=== PATIENT | female | born 1980 | race Two or more races ===

== ENCOUNTER 2020-01-03 18:05 | Emergency (ER) | payer MEDICAID, SELFPAY ==
[2020-01-03 18:16] VITALS: BP 204/116; PULSE 84; PULSE 88; RESP 15; TEMP 36.8; O2SAT 98; O2SAT 99; BMI 31.1
--- NOTE | 2020-01-03 19:02 | ED_ITS ---
HPI - Overdose General Chief Complaint: Overdose Stated Complaint: ?overdose/etoh Time Seen by Provider: 01/03/20 19:02 Source: family and EMS Mode of arrival: EMS Limitations: altered mental status History of Present Illness HPI Narrative: 39-year-old female presents via EMS for overdose. It is unknown which medications that she took, she states that she took handfuls of old medications which include muscle relaxers, medications to control blood sugar, allergy medications and medications for depression. She is a poor historian, history is limited at this time. MD complaint: intentional overdose Onset (ago): unknown Timing confirmed by: family member Intent: suicide attempt How Overdose Was Discovered: family/friend present at time Associated symptoms: depression Treatments Prior to Arrival: none Related Data Allergies Allergy/AdvReac Type Severity Reaction Status Date / Time latex [Latex] Allergy Unknown RASH Verified 01/03/20 18:21 Review of Systems Review of Systems: ROS unable to be obtained due to altered mental status PMFSH Past Medical History Attestation statement: The following information was validated with the patient. Source: unable to obtain Medical History HTN (hypertension) Social History Social History Advance Directives: No Advance Directives Information Provided: Yes Physical Exam Vital Signs and I&O and Narrative: Vital Signs and I&O: Vital Signs Temp 98.2 F 01/03/20 22:00 Pulse 85 01/04/20 03:40 Resp 18 01/04/20 03:40 BP 143/70 H 01/04/20 03:40 Pulse Ox 97 01/04/20 03:40 Intake & Output 01/03/20 01/03/20 01/04/20 06:59 18:59 06:59 Weight 84.822 kg Body Mass Index 31.1 Appearance: Alert. Oriented person and situation. Moderate distress. Eyes: Pupils equal, round and reactive to light. Swelling to the eyelids consistent with crying, no indication of periorbital edema ENT: Pharynx normal. uvula midline, no difficulty managing secretions, speaking in clear sentences. Neck: Normal inspection. Neck supple. No tracheal stridor noted CVS: Normal heart rate and rhythm. Pulses normal. Brisk capillary refill to all extremities Respiratory: No respiratory distress. Breath sounds normal. Abdomen: Soft and nontender. Skin: Skin warm and dry. Normal skin color. Normal skin turgor. Extremities: No lower extremity edema. Neuro: Oriented X 3. No motor deficit. No sensory deficit. Course Course Course Narrative: 39-year-old female presents with intentional overdose on unknown medications and quantity. States to be very depressed, and will not disclose further information. Needing multiple verbal redirection by this DEVOPS ENGINEER and staff technologist to stay in her bed. Patient has one-to-one, and is in direct visual site of this DEVOPS ENGINEER. We'll order Q 15 minutes blood sugars, continuous pulse ox and cardiac monitoring, full lab panel, EKG and troponins. At 8:48 p.m. troponin noted to be elevated, lactic acid 2.1, fluid resuscitation continues with 2 L of normal saline infusing. Blood sugars remain stable. Several hours of closely monitoring blood sugars, all remain above 100, EKGs are normal sinus rhythm, with LVH and repolarization abnormality. EKG at 7:59 p.m. and 11:41 p.m. are similar in comparison. RN had discussion with poison Control, as patient has been monitored for several hours patient can be medically cleared. N consult is pending. Sign out to Dr. Ahumada at 2:00 a.m.. MDM - Overdose Differential Diagnosis Differential diagnosis: Likely suicide attempt by multiple drug overdose and drug overdose Medical Records Attestation: I reviewed the patient's medical records. Lab Data Attestation: I reviewed the patient's lab results. Result diagrams: 01/03/20 19:45 01/03/20 19:45 Labs: Lab Results 01/03/20 01/03/20 01/03/20 Range/Units 19:28 19:45 19:45 WBC 14.2 H (4.8-10.8) X10*3/uL RBC 5.64 H (4.20-5.50) X10*6/uL Hgb 12.7 (12.0-16.0) g/dl Hct 40.2 (37-47) % MCV 71.3 L (80-98) fL MCH 22.5 L (27.0-33.0) pg MCHC 31.6 (31.0-35.0) g/dl RDW 17.9 H (11.0-16.0) % Plt Count 350 (160-400) X10*3/uL MPV 10.7 (9.4-12.3) fL Immature Gran % (Auto) 0.4 (0.0-0.4) % Neut % (Auto) 64.8 (45-73) % Lymph % (Auto) 27.8 (20-40) % [place] % (Auto) 4.3 (2-11) % Eos % (Auto) 2.3 (0-4) % Baso % (Auto) 0.4 (0-2) % Lymph # (Auto) 3.9 (1.2-4.9) X10*3/uL [place] # (Auto) 0.6 (0.1-1.2) X10*3/uL Eos # (Auto) 0.3 (0.0-0.4) X10*3/uL Baso # (Auto) 0.1 (0.0-0.2) X10*3/uL Abs Immat Gran (auto) 0.06 H (0.00-0.03) X10*3/uL Absolute Neuts (auto) 9.2 H (2.0-8.3) X10*3/uL Absolute Nucleated RBC 0.000 (0.0-0.012) X10*3/uL Nucleated RBC % (auto) 0.0 (0.0-0.2) /100WBC PT Cancelled INR Cancelled Sodium (135-145) mmol/L Potassium (3.3-5.1) mmol/l Chloride (96-108) mmol/L Carbon Dioxide (22-29) mmol/L Anion Gap (12-20) BUN (9-16) mg/dL Creatinine (0.5-1.4) mg/dL Estim Creat Clear Calc Estimated GFR POC Glucose 115 (60-115) mg/dL Random Glucose (60-115) mg/dL Lactic Acid (0.5-2.0) mmol/L Calcium (8.4-10.2) mg/dL Magnesium (1.6-2.6) mg/dL Total Bilirubin (0.0-1.0) mg/dL Direct Bilirubin (0.0-0.5) mg/dL AST (5-31) U/L ALT (0-31) U/L Alkaline Phosphatase (39-117) U/L Troponin I High Sens (<3.5-17.0) ng/L Total Protein (6.5-8.0) g/dL Albumin (3.5-5.0) g/dL Lipase (8-78) U/L Urine Color Urine Appearance Urine pH (5.0-8.0) Ur Specific [place] (1.005-1.025) Urine Protein (NEG-TRACE) MG/DL Urine Glucose (UA) (NEG) MG/DL Urine Ketones (NEG) MG/DL Urine Blood (NEG) Urine Nitrite (NEG) Ur Leukocyte Esterase (NEG) Salicylates (15-30) mg/dL Urine Opiates Screen (Not Detect) Acetaminophen (<30) mcg/mL Ur Barbiturates Screen (Not Detect) Ur Phencyclidine Scrn (Not Detect) Ur Amphetamines Screen (Not Detect) U Benzodiazepines Scrn (Not Detect) Urine Cocaine Screen (Not Detect) U Marijuana (THC) Screen (Not Detect) 01/03/20 01/03/20 01/03/20 Range/Units 19:45 19:45 19:45 WBC (4.8-10.8) X10*3/uL RBC (4.20-5.50) X10*6/uL Hgb (12.0-16.0) g/dl Hct (37-47) % MCV (80-98) fL MCH (27.0-33.0) pg MCHC (31.0-35.0) g/dl RDW (11.0-16.0) % Plt Count (160-400) X10*3/uL MPV (9.4-12.3) fL Immature Gran % (Auto) (0.0-0.4) % Neut % (Auto) (45-73) % Lymph % (Auto) (20-40) % [place] % (Auto) (2-11) % Eos % (Auto) (0-4) % Baso % (Auto) (0-2) % Lymph # (Auto) (1.2-4.9) X10*3/uL [place] # (Auto) (0.1-1.2) X10*3/uL Eos # (Auto) (0.0-0.4) X10*3/uL Baso # (Auto) (0.0-0.2) X10*3/uL Abs Immat Gran (auto) (0.00-0.03) X10*3/uL Absolute Neuts (auto) (2.0-8.3) X10*3/uL Absolute Nucleated RBC (0.0-0.012) X10*3/uL Nucleated RBC % (auto) (0.0-0.2) /100WBC PT INR Sodium 139 (135-145) mmol/L Potassium 3.4 (3.3-5.1) mmol/l Chloride 102 (96-108) mmol/L Carbon Dioxide 24 (22-29) mmol/L Anion Gap 16 (12-20) BUN 8 L (9-16) mg/dL Creatinine 0.74 (0.5-1.4) mg/dL Estim Creat Clear Calc 108.6 Estimated GFR > 60 POC Glucose (60-115) mg/dL Random Glucose 124 H (60-115) mg/dL Lactic Acid 2.1 H* (0.5-2.0) mmol/L Calcium 9.5 (8.4-10.2) mg/dL Magnesium 2.0 (1.6-2.6) mg/dL Total Bilirubin 0.3 (0.0-1.0) mg/dL Direct Bilirubin 0.2 (0.0-0.5) mg/dL AST 21 (5-31) U/L ALT 17 (0-31) U/L Alkaline Phosphatase 75 (39-117) U/L Troponin I High Sens 30.6 H (<3.5-17.0) ng/L Total Protein 7.9 (6.5-8.0) g/dL Albumin 4.4 (3.5-5.0) g/dL Lipase 16 (8-78) U/L Urine Color Urine Appearance Urine pH (5.0-8.0) Ur Specific [place] (1.005-1.025) Urine Protein (NEG-TRACE) MG/DL Urine Glucose (UA) (NEG) MG/DL Urine Ketones (NEG) MG/DL Urine Blood (NEG) Urine Nitrite (NEG) Ur Leukocyte Esterase (NEG) Salicylates < 5.0 L (15-30) mg/dL Urine Opiates Screen (Not Detect) Acetaminophen < 1 (<30) mcg/mL Ur Barbiturates Screen (Not Detect) Ur Phencyclidine Scrn (Not Detect) Ur Amphetamines Screen (Not Detect) U Benzodiazepines Scrn (Not Detect) Urine Cocaine Screen (Not Detect) U Marijuana (THC) Screen (Not Detect) 01/03/20 01/03/20 01/03/20 Range/Units 19:56 20:14 20:47 WBC (4.8-10.8) X10*3/uL RBC (4.20-5.50) X10*6/uL Hgb (12.0-16.0) g/dl Hct (37-47) % MCV (80-98) fL MCH (27.0-33.0) pg MCHC (31.0-35.0) g/dl RDW (11.0-16.0) % Plt Count (160-400) X10*3/uL MPV (9.4-12.3) fL Immature Gran % (Auto) (0.0-0.4) % Neut % (Auto) (45-73) % Lymph % (Auto) (20-40) % [place] % (Auto) (2-11) % Eos % (Auto) (0-4) % Baso % (Auto) (0-2) % Lymph # (Auto) (1.2-4.9) X10*3/uL [place] # (Auto) (0.1-1.2) X10*3/uL Eos # (Auto) (0.0-0.4) X10*3/uL Baso # (Auto) (0.0-0.2) X10*3/uL Abs Immat Gran (auto) (0.00-0.03) X10*3/uL Absolute Neuts (auto) (2.0-8.3) X10*3/uL Absolute Nucleated RBC (0.0-0.012) X10*3/uL Nucleated RBC % (auto) (0.0-0.2) /100WBC PT INR Sodium (135-145) mmol/L Potassium (3.3-5.1) mmol/l Chloride (96-108) mmol/L Carbon Dioxide (22-29) mmol/L Anion Gap (12-20) BUN (9-16) mg/dL Creatinine (0.5-1.4) mg/dL Estim Creat Clear Calc Estimated GFR POC Glucose 128 H 144 H 130 H (60-115) mg/dL Random Glucose (60-115) mg/dL Lactic Acid (0.5-2.0) mmol/L Calcium (8.4-10.2) mg/dL Magnesium (1.6-2.6) mg/dL Total Bilirubin (0.0-1.0) mg/dL Direct Bilirubin (0.0-0.5) mg/dL AST (5-31) U/L ALT (0-31) U/L Alkaline Phosphatase (39-117) U/L Troponin I High Sens (<3.5-17.0) ng/L Total Protein (6.5-8.0) g/dL Albumin (3.5-5.0) g/dL Lipase (8-78) U/L Urine Color Urine Appearance Urine pH (5.0-8.0) Ur Specific [place] (1.005-1.025) Urine Protein (NEG-TRACE) MG/DL Urine Glucose (UA) (NEG) MG/DL Urine Ketones (NEG) MG/DL Urine Blood (NEG) Urine Nitrite (NEG) Ur Leukocyte Esterase (NEG) Salicylates (15-30) mg/dL Urine Opiates Screen (Not Detect) Acetaminophen (<30) mcg/mL Ur Barbiturates Screen (Not Detect) Ur Phencyclidine Scrn (Not Detect) Ur Amphetamines Screen (Not Detect) U Benzodiazepines Scrn (Not Detect) Urine Cocaine Screen (Not Detect) U Marijuana (THC) Screen (Not Detect) 01/03/20 01/03/20 01/03/20 Range/Units 20:58 21:11 21:11 WBC (4.8-10.8) X10*3/uL RBC (4.20-5.50) X10*6/uL Hgb (12.0-16.0) g/dl Hct (37-47) % MCV (80-98) fL MCH (27.0-33.0) pg MCHC (31.0-35.0) g/dl RDW (11.0-16.0) % Plt Count (160-400) X10*3/uL MPV (9.4-12.3) fL Immature Gran % (Auto) (0.0-0.4) % Neut % (Auto) (45-73) % Lymph % (Auto) (20-40) % [place] % (Auto) (2-11) % Eos % (Auto) (0-4) % Baso % (Auto) (0-2) % Lymph # (Auto) (1.2-4.9) X10*3/uL [place] # (Auto) (0.1-1.2) X10*3/uL Eos # (Auto) (0.0-0.4) X10*3/uL Baso # (Auto) (0.0-0.2) X10*3/uL Abs Immat Gran (auto) (0.00-0.03) X10*3/uL Absolute Neuts (auto) (2.0-8.3) X10*3/uL Absolute Nucleated RBC (0.0-0.012) X10*3/uL Nucleated RBC % (auto) (0.0-0.2) /100WBC PT 13.6 H INR 1.1 Sodium (135-145) mmol/L Potassium (3.3-5.1) mmol/l Chloride (96-108) mmol/L Carbon Dioxide (22-29) mmol/L Anion Gap (12-20) BUN (9-16) mg/dL Creatinine (0.5-1.4) mg/dL Estim Creat Clear Calc Estimated GFR POC Glucose (60-115) mg/dL Random Glucose (60-115) mg/dL Lactic Acid (0.5-2.0) mmol/L Calcium (8.4-10.2) mg/dL Magnesium (1.6-2.6) mg/dL Total Bilirubin (0.0-1.0) mg/dL Direct Bilirubin (0.0-0.5) mg/dL AST (5-31) U/L ALT (0-31) U/L Alkaline Phosphatase (39-117) U/L Troponin I High Sens (<3.5-17.0) ng/L Total Protein (6.5-8.0) g/dL Albumin (3.5-5.0) g/dL Lipase (8-78) U/L Urine Color YELLOW Urine Appearance CLEAR Urine pH 5.5 (5.0-8.0) Ur Specific [place] <= 1.005 (1.005-1.025) Urine Protein NEG (NEG-TRACE) MG/DL Urine Glucose (UA) NEG (NEG) MG/DL Urine Ketones NEG (NEG) MG/DL Urine Blood NEG (NEG) Urine Nitrite NEG (NEG) Ur Leukocyte Esterase NEG (NEG) Salicylates (15-30) mg/dL Urine Opiates Screen Not Detected (Not Detect) Acetaminophen (<30) mcg/mL Ur Barbiturates Screen Not Detected (Not Detect) Ur Phencyclidine Scrn Not Detected (Not Detect) Ur Amphetamines Screen Not Detected (Not Detect) U Benzodiazepines Scrn Not Detected (Not Detect) Urine Cocaine Screen Not Detected (Not Detect) U Marijuana (THC) Screen Not Detected (Not Detect) 01/03/20 01/03/20 01/03/20 Range/Units 21:32 22:04 22:26 WBC (4.8-10.8) X10*3/uL RBC (4.20-5.50) X10*6/uL Hgb (12.0-16.0) g/dl Hct (37-47) % MCV (80-98) fL MCH (27.0-33.0) pg MCHC (31.0-35.0) g/dl RDW (11.0-16.0) % Plt Count (160-400) X10*3/uL MPV (9.4-12.3) fL Immature Gran % (Auto) (0.0-0.4) % Neut % (Auto) (45-73) % Lymph % (Auto) (20-40) % [place] % (Auto) (2-11) % Eos % (Auto) (0-4) % Baso % (Auto) (0-2) % Lymph # (Auto) (1.2-4.9) X10*3/uL [place] # (Auto) (0.1-1.2) X10*3/uL Eos # (Auto) (0.0-0.4) X10*3/uL Baso # (Auto) (0.0-0.2) X10*3/uL Abs Immat Gran (auto) (0.00-0.03) X10*3/uL Absolute Neuts (auto) (2.0-8.3) X10*3/uL Absolute Nucleated RBC (0.0-0.012) X10*3/uL Nucleated RBC % (auto) (0.0-0.2) /100WBC PT INR Sodium (135-145) mmol/L Potassium (3.3-5.1) mmol/l Chloride (96-108) mmol/L Carbon Dioxide (22-29) mmol/L Anion Gap (12-20) BUN (9-16) mg/dL Creatinine (0.5-1.4) mg/dL Estim Creat Clear Calc Estimated GFR POC Glucose 116 H 123 H 110 (60-115) mg/dL Random Glucose (60-115) mg/dL Lactic Acid (0.5-2.0) mmol/L Calcium (8.4-10.2) mg/dL Magnesium (1.6-2.6) mg/dL Total Bilirubin (0.0-1.0) mg/dL Direct Bilirubin (0.0-0.5) mg/dL AST (5-31) U/L ALT (0-31) U/L Alkaline Phosphatase (39-117) U/L Troponin I High Sens (<3.5-17.0) ng/L Total Protein (6.5-8.0) g/dL Albumin (3.5-5.0) g/dL Lipase (8-78) U/L Urine Color Urine Appearance Urine pH (5.0-8.0) Ur Specific [place] (1.005-1.025) Urine Protein (NEG-TRACE) MG/DL Urine Glucose (UA) (NEG) MG/DL Urine Ketones (NEG) MG/DL Urine Blood (NEG) Urine Nitrite (NEG) Ur Leukocyte Esterase (NEG) Salicylates (15-30) mg/dL Urine Opiates Screen (Not Detect) Acetaminophen (<30) mcg/mL Ur Barbiturates Screen (Not Detect) Ur Phencyclidine Scrn (Not Detect) Ur Amphetamines Screen (Not Detect) U Benzodiazepines Scrn (Not Detect) Urine Cocaine Screen (Not Detect) U Marijuana (THC) Screen (Not Detect) 01/03/20 01/03/20 01/03/20 Range/Units 22:58 23:12 23:50 WBC (4.8-10.8) X10*3/uL RBC (4.20-5.50) X10*6/uL Hgb (12.0-16.0) g/dl Hct (37-47) % MCV (80-98) fL MCH (27.0-33.0) pg MCHC (31.0-35.0) g/dl RDW (11.0-16.0) % Plt Count (160-400) X10*3/uL MPV (9.4-12.3) fL Immature Gran % (Auto) (0.0-0.4) % Neut % (Auto) (45-73) % Lymph % (Auto) (20-40) % [place] % (Auto) (2-11) % Eos % (Auto) (0-4) % Baso % (Auto) (0-2) % Lymph # (Auto) (1.2-4.9) X10*3/uL [place] # (Auto) (0.1-1.2) X10*3/uL Eos # (Auto) (0.0-0.4) X10*3/uL Baso # (Auto) (0.0-0.2) X10*3/uL Abs Immat Gran (auto) (0.00-0.03) X10*3/uL Absolute Neuts (auto) (2.0-8.3) X10*3/uL Absolute Nucleated RBC (0.0-0.012) X10*3/uL Nucleated RBC % (auto) (0.0-0.2) /100WBC PT INR Sodium (135-145) mmol/L Potassium (3.3-5.1) mmol/l Chloride (96-108) mmol/L Carbon Dioxide (22-29) mmol/L Anion Gap (12-20) BUN (9-16) mg/dL Creatinine (0.5-1.4) mg/dL Estim Creat Clear Calc Estimated GFR POC Glucose 103 120 H (60-115) mg/dL Random Glucose (60-115) mg/dL Lactic Acid 1.4 (0.5-2.0) mmol/L Calcium (8.4-10.2) mg/dL Magnesium (1.6-2.6) mg/dL Total Bilirubin (0.0-1.0) mg/dL Direct Bilirubin (0.0-0.5) mg/dL AST (5-31) U/L ALT (0-31) U/L Alkaline Phosphatase (39-117) U/L Troponin I High Sens (<3.5-17.0) ng/L Total Protein (6.5-8.0) g/dL Albumin (3.5-5.0) g/dL Lipase (8-78) U/L Urine Color Urine Appearance Urine pH (5.0-8.0) Ur Specific [place] (1.005-1.025) Urine Protein (NEG-TRACE) MG/DL Urine Glucose (UA) (NEG) MG/DL Urine Ketones (NEG) MG/DL Urine Blood (NEG) Urine Nitrite (NEG) Ur Leukocyte Esterase (NEG) Salicylates (15-30) mg/dL Urine Opiates Screen (Not Detect) Acetaminophen (<30) mcg/mL Ur Barbiturates Screen (Not Detect) Ur Phencyclidine Scrn (Not Detect) Ur Amphetamines Screen (Not Detect) U Benzodiazepines Scrn (Not Detect) Urine Cocaine Screen (Not Detect) U Marijuana (THC) Screen (Not Detect) Imaging Data Chest x-ray: Attestation: I personally reviewed and interpreted this imaging study as follows: Radiologist's impression: FINDINGS: No significant abnormality is noted involving the heart, lungs, mediastinum, bony thorax or soft tissues. IMPRESSION: Unremarkable examination. ECG Data Attestation: I personally reviewed and interpreted this ECG as follows: ECG interpretation date: 01/03/20 ECG interpretation time: 19:59 Interpretation: Vent. rate 70 BPM AL interval 164 ms QRS duration 92 ms QT/QTc 458/494 ms P-R-T axes 33 -16 158 Normal sinus rhythm Left ventricular hypertrophy with repolarization abnormality Prolonged QT Abnormal ECG When compared with ECG of 02-OCT-2019 10:16, No significant change was found Second EKG 01/03/2020 at 11:41 p.m. Vent. rate 73 BPM AL interval 174 ms QRS duration 90 ms QT/QTc 446/491 ms P-R-T axes 46 -[address] & T wave abnormality, consider lateral ischemia Prolonged QT Abnormal ECG When compared with ECG of 03-JAN-2020 19:59, No significant change was found Critical Care Time Critical Care Time Critical Care Time: Yes Total Critical Care Time: 65 Attestation: I personally attest to this time spent taking care of the patient
--- NOTE | 2020-01-03 19:19 | ECG_ITS ---
Test Reason : OVERDOSE Blood Pressure : / mmHG Vent. Rate : 070 BPM Atrial Rate : 070 BPM P-R Int : 164 ms QRS Dur : 092 ms QT Int : 458 ms P-R-T Axes : 033 -16 158 degrees QTc Int : 494 ms Normal sinus rhythm Left ventricular hypertrophy with repolarization abnormality Prolonged QT Nonspecific T wave abnormality Lateral leads Abnormal ECG When compared with ECG of 02-OCT-2019 10:16, No significant change was found Referred By: Susana Cesar Electronically Signed By:BERTA CARDONA MD
--- NOTE | 2020-01-03 19:20 | XR_ITS ---
EXAMINATION: XR CHEST CLINICAL INFORMATION: Overdose COMPARISON: 11/25/2019 TECHNIQUE: Frontal view of the chest was obtained. FINDINGS: No significant abnormality is noted involving the heart, lungs, mediastinum, bony thorax or soft tissues. IMPRESSION: Unremarkable examination.
[2020-01-03 19:32] LABS: Glucose, Whole Blood 115 mg/dL (60-115)
[2020-01-03 20:00] LABS: Glucose, Whole Blood 128 mg/dL (60-115)
[2020-01-03 20:10] LABS: Basophils Absolute Auto 0.1 X10*3/uL (0.0-0.2); Basophils Percent Auto 0.4 % (0-2); Eosinophils Absolute Auto 0.3 X10*3/uL (0.0-0.4); Eosinophils Percent Auto 2.3 % (0-4); Hematocrit 40.2 % (37-47); Hemoglobin 12.7 g/dl (12.0-16.0); Imm Gran Abs Auto 0.06 X10*3/uL (0.00-0.03); Imm Gran Pct Auto 0.4 % (0.0-0.4); Lymphocytes Absolute Auto 3.9 X10*3/uL (1.2-4.9); Lymphocytes Percent Auto 27.8 % (20-40); Mean Corpuscular HGB Conc 31.6 g/dl (31.0-35.0); Mean Corpuscular Hemoglobin 22.5 pg (27.0-33.0); Mean Corpuscular Volume 71.3 fL (80-98); Mean Platelet Volume 10.7 fL (9.4-12.3); Monocytes Absolute Auto 0.6 X10*3/uL (0.1-1.2); Monocytes Percent Auto 4.3 % (2-11); Neutrophils Absolute Auto 9.2 X10*3/uL (2.0-8.3); Neutrophils Percent Auto 64.8 % (45-73); Platelet Count 350 X10*3/uL (160-400); Red Blood Count 5.64 X10*6/uL (4.20-5.50); Red Cell Distribution Width 17.9 % (11.0-16.0); White Blood Count 14.2 X10*3/uL (4.8-10.8)
[2020-01-03 20:11] LABS: MANUAL DIFF FLAG NO
[2020-01-03 20:18] LABS: Glucose, Whole Blood 144 mg/dL (60-115)
[2020-01-03 20:41] LABS: Acetaminophen LAB < 1 mcg/mL (<30); Alanine Aminotransferase 17 U/L (0-31); Albumin Level 4.4 g/dL (3.5-5.0); Alkaline Phosphatase 75 U/L (39-117); Anion Gap 16 (12-20); Aspartate Amino Transferase 21 U/L (5-31); Bilirubin Direct 0.2 mg/dL (0.0-0.5); Bilirubin Total 0.3 mg/dL (0.0-1.0); Blood Urea Nitrogen 8 mg/dL (9-16); Calcium 9.5 mg/dL (8.4-10.2); Carbon Dioxide 24 mmol/L (22-29); Chloride 102 mmol/L (96-108); Creatinine Clr Calc Pharmacy 108.6; Estimated Glomerular Filt Rate > 60; Glucose Random 124 mg/dL (60-115); Lipase 16 U/L (8-78); Potassium 3.4 mmol/l (3.3-5.1); Sodium 139 mmol/L (135-145); Total Protein 7.9 g/dL (6.5-8.0)
[2020-01-03 20:42] LABS: Troponin-I High Sensitivity 30.6 ng/L (<3.5-17.0)
[2020-01-03 20:43] VITALS: BP 129/64; PULSE 72; RESP 18
[2020-01-03 20:47] LABS: Salicylate < 5.0 mg/dL (15-30)
[2020-01-03 20:48] LABS: Lactic Acid 2.1 mmol/L (0.5-2.0)
[2020-01-03 20:51] LABS: Glucose, Whole Blood 130 mg/dL (60-115)
[2020-01-03] MEDS: 0.9 % Sodium Chloride 1,000 ML 999 ML IVCONT ×2 (21:00→22:17)
[2020-01-03 21:09] LABS: INTERNATIONAL NORM RATIO 1.1 (0.9-1.1); Prothrombin Time 13.6 SEC (10.8-13.0)
[2020-01-03 21:24] LABS: Glucose Urine UA NEG (NEG); Leukocyte Esterase Urine NEG (NEG); Nitrite Urine NEG (NEG); PH 5.5 (5.0-8.0); Specific Gravity - Urine <= 1.005 (1.005-1.025); Urine Blood NEG (NEG); Urine Ketones NEG (NEG); Urine Protein NEG (NEG-TRACE)
[2020-01-03 21:25] LABS: Appearance Urine CLEAR; Color Urine YELLOW
[2020-01-03 21:40] LABS: Amphetamine Screen Urine Not Detected (Not Detect); Barbiturates, Urine Not Detected (Not Detect); Benzodiazepines Screen Urine Not Detected (Not Detect); Cannabinoid Screen Urine Not Detected (Not Detect); Cocaine Screen Urine Not Detected (Not Detect); Opiate Screen Urine Not Detected (Not Detect); Phencyclidine Screen Urine Not Detected (Not Detect)
[2020-01-03 22:00] VITALS: BP 129/64; PULSE 72; RESP 18; TEMP 36.8; O2SAT 98
[2020-01-03 22:09] LABS: Glucose, Whole Blood 116 mg/dL (60-115)
[2020-01-03 22:09] LABS: Glucose, Whole Blood 123 mg/dL (60-115)
[2020-01-03 22:15] LABS: Reflex Lactate? Lactic Acid Added
[2020-01-03 23:02] LABS: Glucose, Whole Blood 103 mg/dL (60-115)
[2020-01-03 23:02] LABS: Glucose, Whole Blood 110 mg/dL (60-115)
--- NOTE | 2020-01-03 23:07 | ECG_ITS ---
Test Reason : REPEAT Blood Pressure : / mmHG Vent. Rate : 073 BPM Atrial Rate : 073 BPM P-R Int : 174 ms QRS Dur : 090 ms QT Int : 446 ms P-R-T Axes : 046 -21 162 degrees QTc Int : 491 ms Normal sinus rhythm ST & T wave abnormality, consider lateral ischemia Prolonged QT Abnormal ECG When compared with ECG of 03-JAN-2020 19:59, T wave inversion more evident in Lateral leads Referred By: Susana Cesar Electronically Signed By:BERTA CARDONA MD
--- NOTE | 2020-01-03 23:27 | PC.NURSE ---
pt awake and speaking with staff. pt on 1:1obs with sitter at bedside. pt up to commode at bedside with assistence. pt steady on her feet. pt denies any complaints just feeling hungry and thirsty. pt given gingerale and saltine crackers as per PA's orders. pt awake with respirations easy, n/l, skin w/d. vs obtained. ns x 2L up and running w/o. site intact.
[2020-01-03 23:44] VITALS: BP 156/87; PULSE 80; RESP 18; O2SAT 98
[2020-01-03 23:47] LABS: Lactic Acid 1.4 mmol/L (0.5-2.0)
[2020-01-03 23:54] LABS: Glucose, Whole Blood 120 mg/dL (60-115)
[2020-01-04] VITALS (10 sets, daily range): BP systolic 126–185; BP diastolic 66–97; PULSE 77–113; RESP 18–20; TEMP 36.3–36.9; O2SAT 96–98
--- NOTE | 2020-01-04 01:19 | PC.NURSE ---
CALL POISON CONTROL AND SPOKE WITH [place] AND ADVISED TO STOP BLOOD SUGARS AND PT CAN BE MEDICALLY CLEARED AT THIS TIME. REPORTED INFORMATION FROM POISON CONTROL TO AFTAB PORTER. PT RESTING IN STRETCHER WITH SITTER AT BEDSIDE. PT DENIES ANY COMPLAINTS JUST FEELING TIRED AT THIS TIME. PT REMAINS ON MONITOR WITH HR 87. PT UP TO COMMODE WITH ASSISTANCE. PT EATING CRACKERS AND DRINKING GINGERALE AT THIS TIME. AWAITING FURTHER ORDERS.
--- NOTE | 2020-01-04 07:23 | PC.NURSE ---
denies si at this time, states she needs to work tomorrow, eating breakfast. skin wpd, nad, pleasant and cooperative sitter at bedside
--- NOTE | 2020-01-04 13:53 | PC.NURSE ---
sect 12 per bhn, pt initially stated she would leave, sect 12 info provided to pt. pt moved to the pod, initially argumentative
--- NOTE | 2020-01-04 14:49 | PC.NURSE ---
PT TRANSFERRED OVER FROM MAIN ED S/P OD OF UNKNOWN SUBSTANCES. 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 IRRITABLE EDGE. PT IS A SECTION 12 BED SEARCH.
--- NOTE | 2020-01-04 15:05 | PC.NURSE ---
Pt alert, affect even. Pt reports that she does not need to be in crisis area, pt states 'i drank too much, and took my medications.' Pt states she does not have SI, denies any history of overdose or any suicide attempt, denies any psychiatric history. Crisis process explained to pt. Attempted to complete medication reconciliation- pt states she will call home after 1700 to get information from pill bottle.
[2020-01-04 15:52] LABS: Glucose, Whole Blood 123 mg/dL (60-115)
--- NOTE | 2020-01-04 17:04 | PC.NURSE ---
Pt currently resting in bed. Reports family member will be calling the unit with information on patients current medications. No complaints at this time. Calm.
--- NOTE | 2020-01-04 17:35 | PC.NURSE ---
Pt reports that she is currently not experiencing SI or urges to SH. Reports she does not understand why she is here, and that she did not say she wanted to kill herself.
--- NOTE | 2020-01-04 18:24 | PC.NURSE ---
Pt resting in room, calm, no complaints at this time. Continues to be a section 12 bedsearch.
--- NOTE | 2020-01-04 19:13 | PC.NURSE ---
Patient in bed sitting in yoga style, watching TV, patient had good day. No distress reported at this time. Will continue to monitor.
--- NOTE | 2020-01-04 19:36 | PC.NURSE ---
Per old record, [facility] is patient's pharmacy, called [facility], spoke with pharmacist reported patient last refilled her medication on july of 2018. Patient unable to provide us any further information other than that she get medicated when she is [facility] [place] [facility]. Awaiting call from family medication update.
--- NOTE | 2020-01-04 20:57 | PC.NURSE ---
Patient's spouse, Merritt, brought all home medication that patient is on currently, pharmacy name updated, medication reconciliation completed, provider notified.
[2020-01-04] MEDS: Cyclobenzaprine HCl 10 MG TABLET PO (22:18)
[2020-01-04] MEDS: Metoprolol Tartrate 25 MG TABLET PO (22:19)
[2020-01-04] MEDS: LORazepam 1 MG TABLET PO (22:21)
--- NOTE | 2020-01-04 22:34 | PC.NURSE ---
Patient compliant with HS po medication. Good behavioral control. Patient currently in bed resting, denied distress, will continue to monitor.
[2020-01-05] VITALS (7 sets, daily range): BP systolic 115–184; BP diastolic 86–109; PULSE 79–109; RESP 17–20; TEMP 36.3–37.3; O2SAT 95–99
--- NOTE | 2020-01-05 00:46 | PC.NURSE ---
Patient in bed appears sleeping, no distress observed/reported, respiration +/=/non-labored bilaterally. Will continue to monitor.
--- NOTE | 2020-01-05 03:02 | PC.NURSE ---
Patient in bed appears sleeping, no distress observed/reported, respiration +/=/non-labored bilaterally, Will continue to monitor
--- NOTE | 2020-01-05 04:55 | PC.NURSE ---
Patient in bed appears sleeping, no distress observed/reported, respiration +/=/non-labored bilaterally.
[2020-01-05 06:30] LABS: Glucose, Whole Blood 114 mg/dL (60-115)
--- NOTE | 2020-01-05 06:33 | PC.NURSE ---
Patient in bed appears sleeping, no distress observed/reported, vitals assessed/compliant/unremarkable/documented. Denied distress. Denied si/hi/avh at this time. Patient slept through the night. No update on disposition. Will continue to monitor
--- NOTE | 2020-01-05 07:13 | PC.NURSE ---
Report received from Rolan. Pt asleep at current, no signs of distress. Respirations even, non-labored.
[2020-01-05] MEDS: amLODIPine Besylate 5 MG TABLET PO (09:35)
[2020-01-05] MEDS: Metoprolol Tartrate 25 MG TABLET PO ×2 (09:36→20:19)
[2020-01-05] MEDS: Cyclobenzaprine HCl 10 MG TABLET PO ×2 (09:39→20:19)
--- NOTE | 2020-01-05 10:13 | PC.NURSE ---
Pt resting in bed. No complaints at this time. Calm, no signs of distress.
--- NOTE | 2020-01-05 12:24 | PC.NURSE ---
Pt resting in bed, calm, no complaints at this time. Continues to be a section 12 bed search.
--- NOTE | 2020-01-05 14:13 | PC.NURSE ---
Pt resting in room. No complaints at this time. Calm. Continues to be a section 12 bed search.
--- NOTE | 2020-01-05 16:21 | PC.NURSE ---
Pt alert, out in common area- conversing w/ other pt recently. Affect even. Pt anxious to see [facility]. [facility] called earlier, stated that they will be coming for msu this afternoon.
--- NOTE | 2020-01-05 16:41 | PC.NURSE ---
Vital signs reported to N October- no further orders at this time.
--- NOTE | 2020-01-05 18:43 | PC.NURSE ---
ED transformation coach in to see pt.
--- NOTE | 2020-01-05 22:37 | PC.NURSE ---
Patient is out in milieu, seen on phone few times, called requesting d/c/explained the process, seems not happy with explanation. Pt got reevaluated by N no update notification. Patient requesting d/c so that she can go back to work bring food to the family table but N and provider think she needs more help to structure her live. Patient made aware. No distress reported. Compliant with her HS po medication. Will continue to monitor.
--- NOTE | 2020-01-05 23:45 | PC.NURSE ---
Patient in bed appears sleeping, no distress observed/reported, will continue to monitor.
--- NOTE | 2020-01-06 01:36 | PC.NURSE ---
Patient in bed appears sleeping, no distress observed/reported. Respiration +/=/non-labored bilaterally. Will continue to monitor.
--- NOTE | 2020-01-06 04:39 | PC.NURSE ---
Patient in bed appears sleeping, no distress observed/reported, respiration +/=/non-labored bilaterally. Safety check maintained as ordered. Will continue to monitor.
--- NOTE | 2020-01-06 06:13 | PC.NURSE ---
Patient in bed appears sleeping, no distress observed/reported, respiration +/=/non-labored bilaterally. Will continue to monitor.
[2020-01-06 06:54] VITALS: BP 168/100; PULSE 82; RESP 18; TEMP 36.5; O2SAT 99
--- NOTE | 2020-01-06 07:57 | PC.NURSE ---
Report received from DESTINI Gongora. Pt awake, angry, stating that there is no reason for her to be in the pod, states she is not suicidal, states her supports her return home. Pt reminded that she spoke w/ [facility] last night, and that, per report, pt continues to require inpatient bed search. Pt tearful, stating 'I will lose my job.' Reviewed FMLA w/ pt, pt encouraged to call work and apply.
[2020-01-06 08:02] VITALS: BP 157/83; PULSE 80; RESP 18; TEMP 36.8; O2SAT 99
[2020-01-06 10:08] VITALS: BP 157/83; PULSE 107
[2020-01-06] MEDS: amLODIPine Besylate 5 MG TABLET PO (10:08)
[2020-01-06 10:09] VITALS: BP 157/83; PULSE 107
[2020-01-06] MEDS: Metoprolol Tartrate 25 MG TABLET PO (10:09)
[2020-01-06] MEDS: LORazepam 1 MG TABLET 2 MG PO (11:30)
--- NOTE | 2020-01-06 11:36 | PC.NURSE ---
Pt became very agitated, yelling at another pt stating in Portuguese 'shut the f... up!' Pt continues to be very angry that she is in pod against her will. pt willing to take ativan for anxiety. n ana aware, pt medicated as ordered.
--- NOTE | 2020-01-06 11:49 | PC.NURSE ---
pt medicated for anxiety- appears less anxious at this time. No longer yelling at other pt.
[2020-01-06 12:01] VITALS: BP 181/94; PULSE 107; RESP 18; TEMP 36; O2SAT 97
--- NOTE | 2020-01-06 15:43 | PC.NURSE ---
Pt sitting in [facility], awaiting [facility] re-evaluation.
--- NOTE | 2020-01-06 15:57 | PC.NURSE ---
pt w/ toy at this time
[2020-01-06] MEDS: Cyclobenzaprine HCl 10 MG TABLET PO (16:18)
[2020-01-06 17:12] VITALS: BP 166/95; PULSE 87; RESP 18; TEMP 36.2; O2SAT 97
--- NOTE | 2020-01-06 17:57 | PC.NURSE ---
dr longo in to evaluate pt.
--- NOTE | 2020-01-06 18:09 | PC.NURSE ---
Pt aware that she is being discharged, family outside awaiting pt.
--- NOTE | 2020-01-06 18:23 | PC.NURSE ---
Pt given discharge instructions, verbalized understanding. Pt continues to state that she will be safe on discharge. Affect bright, family here to transport pt home.
== END 2020-01-06 18:24 | disposition home or self-care (01) ==
PROVIDERS: Nurse Practitioner Family; Emergency Provider Emergency Medicine
DX: R41.82 Altered mental status, unspecified (principal); T65.92XA Toxic effect of unspecified substance, intentional self-harm, initial encounter; Y92.9 Unspecified place or not applicable; F32.9 Major depressive disorder, single episode, unspecified; I10 Essential (primary) hypertension; Z79.899 Other long term (current) drug therapy
CPT/HCPCS: 36415; 71045; 80048; 80076; 80307; 81003; 82947; 83605; 83690; 83735; 84484; 85025; 85610; 93005; 96360; 99285; 99291; G0480

== ENCOUNTER 2020-04-01 17:01 | Emergency (ER) | payer OTHER, SELFPAY ==
[2020-04-01 19:27] VITALS: BP 222/107; PULSE 89; RESP 18; TEMP 36.6; O2SAT 99; BMI 32.9
--- NOTE | 2020-04-01 20:10 | ED_ITS ---
HPI - Female Genitourinary General Chief complaint: Urogenital-Female Stated complaint: abdominal pain,blood in urine Time Seen by Provider: 04/01/20 19:53 Source: patient Mode of arrival: ambulatory Limitations: no limitations History of Present Illness HPI Narrative: Patient is a 39-year-old female with no significant past medical history complaining of a few issues. First, she has had 3 days of bilateral flank pain that radiates to her lower abdomen. She has also had abnormal clear discharge for a few days. States when she wiped once she had some blood streaking. She also states she has a bump on her last outer labia and another 1 at the top of her labia and the center. She states her partner she did on her 3 months ago when she was cleared of all sexually transmitted infections but she is very concerned and worried today that she has picked up something from him. Patient states she does have a diagnosis of hypertension and takes 5 mg lisinopril daily but she does not have a primary care doctor so she ran out of her medication. Related Data Home Medications Medication Instructions Recorded Confirmed amlodipine 5 mg PO DAILY 01/04/20 01/04/20 cyclobenzaprine 10 mg PO Q8H 01/04/20 01/04/20 metoprolol tartrate 25 mg PO BID 01/04/20 01/04/20 Previous Rx's Medication Instructions Recorded lisinopril 5 mg PO DAILY #30 tab 04/01/20 Allergies Allergy/AdvReac Type Severity Reaction Status Date / Time latex [Latex] Allergy Unknown RASH Verified 04/01/20 19:26 Review of Systems Review of Systems: Yes all other systems are reviewed and are negative [facility] Past Medical History Medical History HTN (hypertension) Social History Social History Advance Directives: No Advance Directives Information Provided: No Physical Exam Vital Signs: Vital Signs: Last Vital Signs Temp 97.6 F 04/01/20 20:28 Pulse 83 04/01/20 20:28 Resp 16 04/01/20 20:28 BP 197/92 H 04/01/20 20:28 Pulse Ox 99 04/01/20 20:28 Body Mass Index 32.9 Const: General: cooperative, healthy appearing, comfortable, no acute distress and well developed Orientation/consciousness: patient oriented x3 Limitations: no limitations HENMT: Head: Yes normal to inspection Eyes: General: appearance normal, both eyes and all related structures Neck: Neck: Yes normal visual inspection and Yes full ROM Resp: Effort & Inspection: normal respiratory effort and able to speak in complete sentences GI: Inspection: Yes normal to inspection Palpation (GI): Soft to palpation and Tenderness to palpation present (GI) suprapubicly : External Female Exam: normal appearance of the urethra and lesion (left central labia and upper labia) Skin: General skin exam: no rashes or lesions noted Neuro: General: patient oriented x3 Extrem: General: Yes normal to inspection Course Course Course Narrative: 39-year-old female past medical history of hypertension presenting with 3 days of bilateral flank pain which radiates to her abdomen, abnormal discharge and lesions on her labia. Cultured lesions, will do UA and check for gonorrhea and chlamydia. Gave patient information for [facility] to obtain a PCP and advised they would give her 1 month supply of her hypertension medications. 9pm UA negative, test negative, will treat for gonorrhea chlamydia and then discharge. MDM - Female Genitourinary Lab Data Labs: Lab Results 04/01/20 Range/Units 20:14 Urine Color YELLOW Urine Appearance CLEAR Urine pH 6.0 (5.0-8.0) Ur Specific [place] 1.025 (1.005-1.025) Urine Protein TRACE (NEG-TRACE) MG/DL Urine Glucose (UA) NEG (NEG) MG/DL Urine Ketones NEG (NEG) MG/DL Urine Blood NEG (NEG) Urine Nitrite NEG (NEG) Ur Leukocyte Esterase NEG (NEG) Urine Test NEGATIVE (NEGATIVE) Discharge Plan Discharge Clinical Impression: Hypertension Qualifiers: Hypertension type: unspecified Qualified Code(s): I10 - Essential (primary) hypertension Prescriptions: New lisinopril 5 mg tablet 5 mg PO DAILY Qty: 30 RF: 0 No Action amlodipine 5 mg tablet 5 mg PO DAILY RF: 0 metoprolol tartrate 25 mg tablet 25 mg PO BID RF: 0 cyclobenzaprine 10 mg tablet 10 mg PO Q8H RF: 0
[2020-04-01 20:20] VITALS: BP 223/112; PULSE 97; RESP 16; O2SAT 99
[2020-04-01 20:28] VITALS: BP 197/92; PULSE 83; RESP 16; TEMP 36.4; O2SAT 99
[2020-04-01 20:28] LABS: Appearance Urine CLEAR; Color Urine YELLOW; Glucose Urine UA NEG (NEG); Leukocyte Esterase Urine NEG (NEG); Nitrite Urine NEG (NEG); Specific Gravity - Urine 1.025 (1.005-1.025); Urine Blood NEG (NEG); Urine Ketones NEG (NEG); Urine Protein TRACE MG/DL (NEG-TRACE)
[2020-04-01 20:30] LABS: UPreg QC Valid YES; Urine Pregnancy NEGATIVE (NEGATIVE)
[2020-04-01] MEDS: Ketorolac Tromethamine 30 MG/ML VIAL IM (21:10)
[2020-04-01 21:11] VITALS: BP 197/92; PULSE 83
[2020-04-01] MEDS: lisinopriL 5 MG TABLET PO (21:11)
[2020-04-01] MEDS: Azithromycin 500 MG TABLET 1000 MG PO (21:40)
[2020-04-01] MEDS: cefTRIAXone sodium 500 MG, Lidocaine HCl 1 % MPF 1 ML IM (21:40)
[2020-04-05 10:46] LABS: CT PCR NOT DETECTED (Not Detect.); NG PCR NOT DETECTED (Not Detect.)
== END 2020-04-01 21:52 | disposition home or self-care (01) ==
PROVIDERS: Physician Assistant; Emergency Provider Internal Medicine
DX: R10.9 Unspecified abdominal pain (principal); I10 Essential (primary) hypertension; Z79.899 Other long term (current) drug therapy
CPT/HCPCS: 36415; 81003; 81025; 87252; 87255; 87491; 87591; 96372; 99284; J0696; J1885

== ENCOUNTER 2020-04-24 11:35 | Outpatient (REF) | payer OTHER, SELFPAY ==
[2020-04-24 12:02] LABS: MANUAL DIFF FLAG SCAN; Mean Corpuscular HGB Conc 30.3 g/dl (31.0-35.0); Mean Corpuscular Volume 72.7 fL (80-98); SCAN SMEAR FLAG 1
[2020-04-24 12:04] LABS: Basophils Absolute Auto 0.1 X10*3/uL (0.0-0.2); Basophils Percent Auto 0.4 % (0-2); Eosinophils Absolute Auto 0.3 X10*3/uL (0.0-0.4); Eosinophils Percent Auto 2.7 % (0-4); Hematocrit 37.3 % (37-47); Hemoglobin 11.3 g/dl (12.0-16.0); Imm Gran Abs Auto 0.04 X10*3/uL (0.00-0.03); Imm Gran Pct Auto 0.3 % (0.0-0.4); Lymphocytes Absolute Auto 3.2 X10*3/uL (1.2-4.9); Lymphocytes Percent Auto 25.6 % (20-40); Monocytes Absolute Auto 0.7 X10*3/uL (0.1-1.2); Monocytes Percent Auto 5.6 % (2-11); Neutrophils Absolute Auto 8.1 X10*3/uL (2.0-8.3); Neutrophils Percent Auto 65.4 % (45-73); PLT CLUMP 1; Red Blood Count 5.13 X10*6/uL (4.20-5.50); Red Cell Distribution Width 17.7 % (11.0-16.0)
[2020-04-24 12:05] LABS: PLT ABN DIST 1
[2020-04-24 12:22] LABS: Estimated Average Glucose 151 mg/dL; Hemoglobin A1c % 6.9 %
[2020-04-24 12:28] LABS: Alanine Aminotransferase 12 U/L (0-31); Albumin Level 4.1 g/dL (3.5-5.0); Alkaline Phosphatase 64 U/L (39-117); Anion Gap 11 (12-20); Aspartate Amino Transferase 16 U/L (5-31); Blood Urea Nitrogen 11 mg/dL (9-16); Calcium 9.3 mg/dL (8.4-10.2); Carbon Dioxide 30 mmol/L (22-29); Chloride 102 mmol/L (96-108); Cholesterol 184 mg/dL; Estimated Glomerular Filt Rate > 60; Glucose Fasting 128 mg/dL (60-99); HDL Cholesterol 40 mg/dL; LDL Cholesterol Calculated 123 mg/dl; Potassium 3.6 mmol/L (3.3-5.1); Sodium 139 mmol/L (135-145); Total Protein 7.3 g/dL (6.5-8.0); Triglycerides 107 mg/dL
[2020-04-24 13:46] LABS: Platelet Count 296 X10*3/uL (160-400); White Blood Count 12.4 X10*3/uL (4.8-10.8)
[2020-04-24 13:47] LABS: SLIDE REVIEW VERIFIED
[2020-04-24 13:48] LABS: Microalbum/Creatinine Ratio Ur 36.5 ug/mg cr
== END 2020-04-24 11:36 | disposition home or self-care (01) ==
LOC: HO.LAB 11:35
PROVIDERS: PCP Internal Medicine; Visit Provider Internal Medicine
DX: Z00.00 Encounter for general adult medical examination without abnormal findings (principal); E11.9 Type 2 diabetes mellitus without complications; E03.9 Hypothyroidism, unspecified
CPT/HCPCS: 36415; 80053; 80061; 82043; 83036; 84443; 85025

== ENCOUNTER 2020-04-28 09:45 | Emergency (ER) | payer OTHER, SELFPAY ==
[2020-04-28] VITALS (7 sets, daily range): BP systolic 150–204; BP diastolic 72–115; PULSE 76–90; RESP 14–22; TEMP 36.9–37.8; O2SAT 98–99; BMI 32.9
--- NOTE | 2020-04-28 10:18 | ECG_ITS ---
Test Reason : CP Blood Pressure : / mmHG Vent. Rate : 093 BPM Atrial Rate : 093 BPM P-R Int : 162 ms QRS Dur : 088 ms QT Int : 388 ms P-R-T Axes : 066 -03 151 degrees QTc Int : 482 ms Normal sinus rhythm Possible Left atrial enlargement ST & T wave abnormality, consider lateral ischemia or repolarization abnormality Prolonged QT Abnormal ECG When compared with ECG of 03-JAN-2020 23:41, No significant change was found Referred By: Rafaela Michelle Electronically Signed By:STEFFEN ADAM MD
--- NOTE | 2020-04-28 10:19 | XR_ITS ---
EXAMINATION: XR CHEST CLINICAL INFORMATION: Chest tightness, arm pain and cough COMPARISON: Previous chest x-ray December 2019 TECHNIQUE: Frontal view of the chest was obtained. FINDINGS: The cardiac silhouette is slightly enlarged but stable. Hilar and mediastinal contours are unremarkable. The lungs are clear. There is no pleural effusion or pneumothorax. Bony structures are unremarkable. XR/XR chest 1V IMPRESSION: Stable enlargement of the cardiac silhouette. No evidence for acute disease in the chest.
--- NOTE | 2020-04-28 10:20 | ED_ITS ---
HPI - General Adult General Chief complaint: General Medical Stated complaint: covid symptoms Time Seen by Provider: 04/28/20 09:57 Source: patient Mode of arrival: ambulatory Limitations: no limitations History of Present Illness HPI narrative: 39yoF c PMHx of HTN, DM, headaches and arthritis presenting to the ED c multiple complaints of chills, body aches, itchy throat, dry cough, chest tightness, right-sided chest pain/right arm pain, night sweats and diarrhea for the past 3 days worse today. Reports that her niece tested positive for COVID and she was around her recently. Patient was noted to be hypertensive at 193/110 and she reports that she just took her 5 mg lisinopril prior to arrival. We will reassess the patient's blood pressure prior to discharge. Patient denies any fevers, dizziness, headaches, jaw pain, paresthesias, back pain, dyspnea on exertion, orthopnea, shortness of breath, nausea/vomiting or abdominal pain or any other symptoms complaints or concerns at this time. Related Data Previous Rx's Medication Instructions Recorded lisinopril 5 mg PO DAILY #30 tab 04/01/20 acetaminophen [Tylenol Extra 1,000 mg PO QID PRN #14 tab 04/28/20 Strength] albuterol sulfate 1 inh INHALATION QID PRN #8.5 g 04/28/20 azithromycin See Rx Instructions .ROUTE 04/28/20 .COMPLEX #6 tab cyclobenzaprine 10 mg PO TID PRN #10 tab 04/28/20 ibuprofen 800 mg PO Q8H PRN #14 tab 04/28/20 lisinopril 40 mg PO DAILY #30 tab 04/28/20 Allergies Allergy/AdvReac Type Severity Reaction Status Date / Time latex [Latex] Allergy Unknown RASH Verified 04/01/20 19:26 Review of Systems Review of Systems: Constitutional : No Weight loss, No Fever, + Chills, + Night Sweats, + Fatigue, + Malaise ENT/Mouth : No Hearing loss, No Ear Pain, + Nasal Congestion, No Sinus Pain, No Hoarseness, + sore throat, No Rhinorrhea, No Swallowing Difficulty Eyes: No Eye Pain, No Swelling, No Redness, No Foreign Body, No Discharge, No Vision Changes Cardiovascular : + Chest tightness, No SOB, no Dyspnea on Exertion, No Or thopnea, No Edema, No extremity swelling, No Palpitations Respiratory : + Cough, No Sputum, No Wheezing, No Dyspnea Gastrointestinal : No Nausea, No Vomiting, + Diarrhea, No abdominal Pain, No Hematochezia, No Melena Genitourinary : No irregular bleeding, No Dysuria, No Urinary Frequency, No Hematuria, No Urinary Incontinence, No Urgency, No Flank Pain, No Urinary Flow Changes, No Hesitancy Musculoskeletal : No joint pain, + Myalgias, No Joint Swelling Skin : No Skin Lesions, No rash Neuro : No Weakness, No Numbness, No Paresthesias, No Loss of Consciousness, No Dizziness, No Headache Psych : No Anxiety/Panic, No Depression, No SI/HI/AH/VH Heme/Lymph: No Bruising, No Bleeding,No Lymphadenopathy Endocrine : No Polyuria, No Polydipsia, No Temperature Intolerance Yes all other systems are reviewed and are negative [facility] Past Medical History Attestation statement: The following information was validated with the patient. Medical History Diabetes mellitus HTN (hypertension) Social History Social History Alcohol intake: never Smoking Status: Current every day smoker Tobacco Type: Cigarette Cigarettes Per Day: 3 Smoked in Last 30 Days: No Use of substances other than those prescribed or required for medical reasons: No Advance Directives: No Advance Directives Information Provided: No Physical Exam Vital Signs: Vital Signs: Last Vital Signs Temp 99.2 F 04/28/20 14:33 Pulse 87 04/28/20 18:23 Resp 14 04/28/20 18:23 BP 159/97 H 04/28/20 18:23 Pulse Ox 99 04/28/20 18:23 Body Mass Index 32.9 vital signs have been reviewed as normal and appeared to be correct. Blood pressure hypertensive at 193/110. Heart rate tachycardic. Respiration rate normal. Temperature febrile. Oxygen saturation normal. Appearance: Alert. Oriented X3. No acute distress. Head: Normal external exam. Normocephalic. Atraumatic. Eyes: PERRLA. EOMI. Conjunctiva and sclera normal. Eyelids normal. ENT: EAC normal. TM's Normal. Pharynx normal. Uvula midline. Moist mucous membranes. No trismus noted. No drooling noted. No muffled voice noted. Neck: Normal inspection. Neck supple. FROM. No adenopathy. Thyroid Normal. Tr achea midline. No meningeal signs. No neck mass noted. CVS: Normal heart rate and rhythm. Heart sound normal. No murmurs noted. Pulses normal throughout. Respiratory: No respiratory distress. Painless inspiration. Breath sounds normal. No wheezes/rales/rhonchi noted. Chest nontender. No accessory muscle usage noted or decreased air movement noted. Back: No CVA tenderness. Full range of motion noted. Skin: Skin warm and dry. Normal skin color. Normal skin turgor. No rashes/lesions/lacerations noted. Extremities: No lower extremity edema. No calf tenderness noted. Extremities exhibit normal range of motion. Extremities nontender. Neuro: Oriented X 3. No motor deficit. No sensory deficit. Reflexes normal. Normal steady gait. Course Course Course Narrative: 10:20am - 39yoF c PMHx of HTN, DM, H/a's and arthritis presenting to the ED c c/o chills, body aches, itchy throat, dry cough, chest tightness, right-sided chest pain/right arm pain, night sweats and diarrhea for the past 3 days worse today. + Exposure to COVID-19. - On exam patient is alert and oriented x3. Nine any acute distress. Patient noted to be hypertensive, tachycardic and febrile otherwise all other vitals are within normal limits. Lungs clear to auscultation . - concern for ACS vs PE vs PNA VS COVID - Plan: Labs, CXR, EKG, blood cultures, lactic acid. Provide 975 mg of Tylenol then re-evaluate. Reevaluation(s) Reevaluation #1: - white blood cell count 45462 - glucose 166 - lactic acid 1.7 - troponin 59.1 - CRP 0.91 - BNP 292 - COVID/RSV/flu negative. - chest x-ray negative for pneumonia or any other acute processes. - EKG normal sinus rhythm with left atrial enlargement with nonspecific ST wave abnormalities with a prolonged QT at 388ms otherwise no acute ischemic changes noted and similar compared to prior EKG on 01/03/2020. - therefore repeat troponin will be ordered for 13:30 - due to patient's elevated white blood cell count and being tachycardic and febrile patient will be given 1 g of Rocephin - patient is still hypertensive therefore will give her another dose of 5 mg lisinopril will re-evaluate Time: 12:00 Reevaluation #2: - repeat troponin 51.7 - although the patient's blood pressure still elevated at 191/115 despite the 10 mg of lisinopril therefore will give 10 mg of IV labetalol then re-evaluate. Time: 14:40 Reevaluation #3: - Patient's blood pressure still elevated therefore will give another 10 mg of IV labetalol and plan to admit for viral syndrome, elevated troponin and hypertensive urgency. Patient understands agrees the plan. Time: 15:34 Additional Reevaluation(s): 18:33 - I attempted to admit the patient although after giving her 10 mg of lisinopril, 20 mg of labetalol, 1 mg of nitroglycerin paste and 1 mg of Dilaudid and 4 mg of Zofran patient reports her chest discomfort has completely resolved and her blood pressure now is 159/97. - I consulted with Dr. Flores and he reported troponin with no delta unlikely ACS could be related to hypertension EKG most likely related to LVH with repolarization abnormality and that he did not believe she needs to be admitted just for elevated troponin and now that her blood pressure is controlled he reports that she can safely be discharged and have an outpatient echocardiogram. Therefore will DC home with the increase of the patient's lisinopril to 40 mg instead of 5 mg daily and instructions to follow-up with cardiology and her primary care provider this week for an outpatient echocardiogram and to return if any new or worsening symptoms. Patient understands agrees the plan. Medical Decision Making Medical Records Medical records reviewed: Yes I reviewed the patient's medical records. Lab Data Lab results reviewed: Yes I reviewed the patient's lab results. Result diagrams: 04/28/20 10:37 04/28/20 10:37 Labs: Lab Results 04/28/20 04/28/20 04/28/20 Range/Units 10:36 10:37 10:37 WBC 12.2 H (4.8-10.8) X10*3/uL RBC 5.15 (4.20-5.50) X10*6/uL Hgb 11.4 L (12.0-16.0) g/dl Hct 37.5 (37-47) % MCV 72.8 L (80-98) fL MCH 22.1 L (27.0-33.0) pg MCHC 30.4 L (31.0-35.0) g/dl RDW 18.1 H (11.0-16.0) % Plt Count 265 (160-400) X10*3/uL MPV Not Reportable Immature Gran % (Auto) 0.4 (0.0-0.4) % Neut % (Auto) 64.1 (45-73) % Lymph % (Auto) 25.6 (20-40) % Towner % (Auto) 5.4 (2-11) % Eos % (Auto) 3.9 (0-4) % Baso % (Auto) 0.6 (0-2) % Lymph # (Auto) 3.1 (1.2-4.9) X10*3/uL Towner # (Auto) 0.7 (0.1-1.2) X10*3/uL Eos # (Auto) 0.5 H (0.0-0.4) X10*3/uL Baso # (Auto) 0.1 (0.0-0.2) X10*3/uL Abs Immat Gran (auto) 0.05 H (0.00-0.03) X10*3/uL Absolute Neuts (auto) 7.8 (2.0-8.3) X10*3/uL Absolute Nucleated RBC 0.000 (0.0-0.012) X10*3/uL Nucleated RBC % (auto) 0.0 (0.0-0.2) /100WBC PT 12.4 (10.8-13.0) SEC INR 1.0 (0.9-1.1) D-Dimer < 200 NG/ML Sodium (135-145) mmol/L Potassium (3.3-5.1) mmol/L Chloride (96-108) mmol/L Carbon Dioxide (22-29) mmol/L Anion Gap (12-20) BUN (9-16) mg/dL Creatinine (0.5-1.4) mg/dL Estim Creat Clear Calc Estimated GFR Random Glucose (60-115) mg/dL Lactic Acid (0.5-2.0) mmol/L Calcium (8.4-10.2) mg/dL Magnesium (1.6-2.6) mg/dL Ferritin (10-250) ng/mL Total Bilirubin (0.0-1.0) mg/dL Direct Bilirubin (0.0-0.5) mg/dL AST (5-31) U/L ALT (0-31) U/L Alkaline Phosphatase (39-117) U/L Lactate Dehydrogenase (122-220) U/L Troponin I High Sens (<3.5-17.0) ng/L C-Reactive Protein (< or = 0.50) mg/dL B-Natriuretic Peptide (<100) pg/mL Total Protein (6.5-8.0) g/dL Albumin (3.5-5.0) g/dL Procalcitonin ng/mL Urine Color Urine Appearance Urine pH (5.0-8.0) Ur Specific Lejunior (1.005-1.025) Urine Protein (NEG-TRACE) MG/DL Urine Glucose (UA) (NEG) MG/DL Urine Ketones (NEG) MG/DL Urine Blood (NEG) Urine Nitrite (NEG) Ur Leukocyte Esterase (NEG) Urine Test (NEGATIVE) Coronavirus (PCR) NEGATIVE (Negative) Influenza Type A (PCR) NEGATIVE (Negative) Influenza Type B (PCR) NEGATIVE (Negative) RSV RNA Qual (PCR) NEGATIVE (Negative) 04/28/20 04/28/20 04/28/20 Range/Units 10:37 10:37 10:37 WBC (4.8-10.8) X10*3/uL RBC (4.20-5.50) X10*6/uL Hgb (12.0-16.0) g/dl Hct (37-47) % MCV (80-98) fL MCH (27.0-33.0) pg MCHC (31.0-35.0) g/dl RDW (11.0-16.0) % Plt Count (160-400) X10*3/uL MPV Immature Gran % (Auto) (0.0-0.4) % Neut % (Auto) (45-73) % Lymph % (Auto) (20-40) % Towner % (Auto) (2-11) % Eos % (Auto) (0-4) % Baso % (Auto) (0-2) % Lymph # (Auto) (1.2-4.9) X10*3/uL Towner # (Auto) (0.1-1.2) X10*3/uL Eos # (Auto) (0.0-0.4) X10*3/uL Baso # (Auto) (0.0-0.2) X10*3/uL Abs Immat Gran (auto) (0.00-0.03) X10*3/uL Absolute Neuts (auto) (2.0-8.3) X10*3/uL Absolute Nucleated RBC (0.0-0.012) X10*3/uL Nucleated RBC % (auto) (0.0-0.2) /100WBC PT (10.8-13.0) SEC INR (0.9-1.1) D-Dimer NG/ML Sodium 139 (135-145) mmol/L Potassium 3.6 (3.3-5.1) mmol/L Chloride 105 (96-108) mmol/L Carbon Dioxide 25 (22-29) mmol/L Anion Gap 13 (12-20) BUN 12 (9-16) mg/dL Creatinine 0.75 (0.5-1.4) mg/dL Estim Creat Clear Calc 98.7 Estimated GFR > 60 Random Glucose 161 H (60-115) mg/dL Lactic Acid (0.5-2.0) mmol/L Calcium 8.8 (8.4-10.2) mg/dL Magnesium 1.7 (1.6-2.6) mg/dL Ferritin 4 L (10-250) ng/mL Total Bilirubin 0.7 (0.0-1.0) mg/dL Direct Bilirubin 0.2 (0.0-0.5) mg/dL AST 14 (5-31) U/L ALT 12 (0-31) U/L Alkaline Phosphatase 75 (39-117) U/L Lactate Dehydrogenase 163 (122-220) U/L Troponin I High Sens 59.1 H D (<3.5-17.0) ng/L C-Reactive Protein 0.91 H (< or = 0.50) mg/dL B-Natriuretic Peptide (<100) pg/mL Total Protein 7.2 (6.5-8.0) g/dL Albumin 4.0 (3.5-5.0) g/dL Procalcitonin ng/mL Urine Color Urine Appearance Urine pH (5.0-8.0) Ur Specific Lejunior (1.005-1.025) Urine Protein (NEG-TRACE) MG/DL Urine Glucose (UA) (NEG) MG/DL Urine Ketones (NEG) MG/DL Urine Blood (NEG) Urine Nitrite (NEG) Ur Leukocyte Esterase (NEG) Urine Test (NEGATIVE) Coronavirus (PCR) (Negative) Influenza Type A (PCR) (Negative) Influenza Type B (PCR) (Negative) RSV RNA Qual (PCR) (Negative) 04/28/20 04/28/20 04/28/20 Range/Units 10:37 10:37 10:37 WBC (4.8-10.8) X10*3/uL RBC (4.20-5.50) X10*6/uL Hgb (12.0-16.0) g/dl Hct (37-47) % MCV (80-98) fL MCH (27.0-33.0) pg MCHC (31.0-35.0) g/dl RDW (11.0-16.0) % Plt Count (160-400) X10*3/uL MPV Immature Gran % (Auto) (0.0-0.4) % Neut % (Auto) (45-73) % Lymph % (Auto) (20-40) % Towner % (Auto) (2-11) % Eos % (Auto) (0-4) % Baso % (Auto) (0-2) % Lymph # (Auto) (1.2-4.9) X10*3/uL Towner # (Auto) (0.1-1.2) X10*3/uL Eos # (Auto) (0.0-0.4) X10*3/uL Baso # (Auto) (0.0-0.2) X10*3/uL Abs Immat Gran (auto) (0.00-0.03) X10*3/uL Absolute Neuts (auto) (2.0-8.3) X10*3/uL Absolute Nucleated RBC (0.0-0.012) X10*3/uL Nucleated RBC % (auto) (0.0-0.2) /100WBC PT (10.8-13.0) SEC INR (0.9-1.1) D-Dimer NG/ML Sodium (135-145) mmol/L Potassium (3.3-5.1) mmol/L Chloride (96-108) mmol/L Carbon Dioxide (22-29) mmol/L Anion Gap (12-20) BUN (9-16) mg/dL Creatinine (0.5-1.4) mg/dL Estim Creat Clear Calc Estimated GFR Random Glucose (60-115) mg/dL Lactic Acid (0.5-2.0) mmol/L Calcium (8.4-10.2) mg/dL Magnesium (1.6-2.6) mg/dL Ferritin (10-250) ng/mL Total Bilirubin (0.0-1.0) mg/dL Direct Bilirubin (0.0-0.5) mg/dL AST (5-31) U/L ALT (0-31) U/L Alkaline Phosphatase (39-117) U/L Lactate Dehydrogenase (122-220) U/L Troponin I High Sens (<3.5-17.0) ng/L C-Reactive Protein (< or = 0.50) mg/dL B-Natriuretic Peptide 292 H (<100) pg/mL Total Protein (6.5-8.0) g/dL Albumin (3.5-5.0) g/dL Procalcitonin < 0.02 ng/mL Urine Color YELLOW Urine Appearance HAZY Urine pH 6.0 (5.0-8.0) Ur Specific Lejunior >= 1.030 H (1.005-1.025) Urine Protein TRACE (NEG-TRACE) MG/DL Urine Glucose (UA) NEG (NEG) MG/DL Urine Ketones NEG (NEG) MG/DL Urine Blood NEG (NEG) Urine Nitrite NEG (NEG) Ur Leukocyte Esterase NEG (NEG) Urine Test NEGATIVE (NEGATIVE) Coronavirus (PCR) (Negative) Influenza Type A (PCR) (Negative) Influenza Type B (PCR) (Negative) RSV RNA Qual (PCR) (Negative) 04/28/20 04/28/20 Range/Units 12:19 14:17 WBC (4.8-10.8) X10*3/uL RBC (4.20-5.50) X10*6/uL Hgb (12.0-16.0) g/dl Hct (37-47) % MCV (80-98) fL MCH (27.0-33.0) pg MCHC (31.0-35.0) g/dl RDW (11.0-16.0) % Plt Count (160-400) X10*3/uL MPV Immature Gran % (Auto) (0.0-0.4) % Neut % (Auto) (45-73) % Lymph % (Auto) (20-40) % Towner % (Auto) (2-11) % Eos % (Auto) (0-4) % Baso % (Auto) (0-2) % Lymph # (Auto) (1.2-4.9) X10*3/uL Towner # (Auto) (0.1-1.2) X10*3/uL Eos # (Auto) (0.0-0.4) X10*3/uL Baso # (Auto) (0.0-0.2) X10*3/uL Abs Immat Gran (auto) (0.00-0.03) X10*3/uL Absolute Neuts (auto) (2.0-8.3) X10*3/uL Absolute Nucleated RBC (0.0-0.012) X10*3/uL Nucleated RBC % (auto) (0.0-0.2) /100WBC PT (10.8-13.0) SEC INR (0.9-1.1) D-Dimer NG/ML Sodium (135-145) mmol/L Potassium (3.3-5.1) mmol/L Chloride (96-108) mmol/L Carbon Dioxide (22-29) mmol/L Anion Gap (12-20) BUN (9-16) mg/dL Creatinine (0.5-1.4) mg/dL Estim Creat Clear Calc Estimated GFR Random Glucose (60-115) mg/dL Lactic Acid 1.7 (0.5-2.0) mmol/L Calcium (8.4-10.2) mg/dL Magnesium (1.6-2.6) mg/dL Ferritin (10-250) ng/mL Total Bilirubin (0.0-1.0) mg/dL Direct Bilirubin (0.0-0.5) mg/dL AST (5-31) U/L ALT (0-31) U/L Alkaline Phosphatase (39-117) U/L Lactate Dehydrogenase (122-220) U/L Troponin I High Sens 51.7 H (<3.5-17.0) ng/L C-Reactive Protein (< or = 0.50) mg/dL B-Natriuretic Peptide (<100) pg/mL Total Protein (6.5-8.0) g/dL Albumin (3.5-5.0) g/dL Procalcitonin ng/mL Urine Color Urine Appearance Urine pH (5.0-8.0) Ur Specific Lejunior (1.005-1.025) Urine Protein (NEG-TRACE) MG/DL Urine Glucose (UA) (NEG) MG/DL Urine Ketones (NEG) MG/DL Urine Blood (NEG) Urine Nitrite (NEG) Ur Leukocyte Esterase (NEG) Urine Test (NEGATIVE) Coronavirus (PCR) (Negative) Influenza Type A (PCR) (Negative) Influenza Type B (PCR) (Negative) RSV RNA Qual (PCR) (Negative) Imaging Data Chest x-ray: Attestation: I personally reviewed and interpreted this imaging study as follows: Radiologist's impression: FINDINGS: The cardiac silhouette is slightly enlarged but stable. Hilar and mediastinal contours are unremarkable. The lungs are clear. There is no pleural effusion or pneumothorax. Bony structures are unremarkable. XR/XR chest 1V IMPRESSION: Stable enlargement of the cardiac silhouette. No evidence for acute disease in the chest. ECG Data Attestation: I personally reviewed and interpreted this ECG as follows: Interpretation: Normal sinus rhythm with a ventricular rate of 93 with left atrial enlargement with nonspecific ST and T-wave abnormalities and prolonged QT at 388 milliseconds otherwise no acute ischemic changes noted. 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 Return if any new or worsening symptoms or if symptoms return and persist. Prescriptions: New lisinopril 40 mg tablet 40 mg PO DAILY Qty: 30 RF: 0 cyclobenzaprine 10 mg tablet 10 mg PO TID PRN (Reason: muscle spasm) Qty: 10 RF: 0 azithromycin 250 mg tablet See Rx Instructions .ROUTE .COMPLEX Qty: 6 RF: 0 ibuprofen 800 mg tablet 800 mg PO Q8H PRN (Reason: pain) Qty: 14 RF: 0 acetaminophen [Tylenol Extra Strength] 500 mg tablet 1,000 mg PO QID PRN (Reason: fever or pain) Qty: 14 RF: 0 albuterol sulfate 90 mcg/actuation HFA aerosol inhaler 1 inh inhalation QID PRN (Reason: shortness of breath or wheezing) Qty: 8.5 RF: 0 No Action lisinopril 5 mg tablet 5 mg PO DAILY Qty: 30 RF: 0 Referrals: Chris Cordero MD [Primary Care Provider] - 1 day Devang Flores MD [Physician] - 1 day Stand Alone Forms: Work/School Release Print Language: German
[2020-04-28] MEDS: Acetaminophen 325 MG TABLET 975 MG PO (10:57)
[2020-04-28 11:00] LABS: Hematocrit 37.5 % (37-47); Imm Gran Abs Auto 0.05 X10*3/uL (0.00-0.03); Imm Gran Pct Auto 0.4 % (0.0-0.4); Red Cell Distribution Width 18.1 % (11.0-16.0)
[2020-04-28 11:02] LABS: Basophils Absolute Auto 0.1 X10*3/uL (0.0-0.2); Basophils Percent Auto 0.6 % (0-2); Eosinophils Absolute Auto 0.5 X10*3/uL (0.0-0.4); Eosinophils Percent Auto 3.9 % (0-4); Hemoglobin 11.4 g/dl (12.0-16.0); Lymphocytes Absolute Auto 3.1 X10*3/uL (1.2-4.9); Lymphocytes Percent Auto 25.6 % (20-40); Mean Corpuscular HGB Conc 30.4 g/dl (31.0-35.0); Mean Corpuscular Hemoglobin 22.1 pg (27.0-33.0); Mean Corpuscular Volume 72.8 fL (80-98); Monocytes Absolute Auto 0.7 X10*3/uL (0.1-1.2); Monocytes Percent Auto 5.4 % (2-11); Neutrophils Absolute Auto 7.8 X10*3/uL (2.0-8.3); Neutrophils Percent Auto 64.1 % (45-73); Platelet Count 265 X10*3/uL (160-400); Red Blood Count 5.15 X10*6/uL (4.20-5.50); White Blood Count 12.2 X10*3/uL (4.8-10.8)
[2020-04-28 11:05] LABS: Glucose Urine UA NEG (NEG); Leukocyte Esterase Urine NEG (NEG); Nitrite Urine NEG (NEG); Specific Gravity - Urine >= 1.030 (1.005-1.025); Urine Blood NEG (NEG); Urine Ketones NEG (NEG); Urine Protein TRACE MG/DL (NEG-TRACE)
[2020-04-28 11:06] LABS: Appearance Urine HAZY; Color Urine YELLOW
[2020-04-28 11:08] LABS: UPreg QC Valid YES; Urine Pregnancy NEGATIVE (NEGATIVE)
[2020-04-28 11:09] LABS: Prothrombin Time 12.4 SEC (10.8-13.0)
[2020-04-28 11:10] LABS: MANUAL DIFF FLAG NO
[2020-04-28 11:13] LABS: D Dimer < 200 NG/ML
[2020-04-28 11:27] LABS: Alanine Aminotransferase 12 U/L (0-31); Alkaline Phosphatase 75 U/L (39-117); Anion Gap 13 (12-20); Aspartate Amino Transferase 14 U/L (5-31); Bilirubin Direct 0.2 mg/dL (0.0-0.5); Bilirubin Total 0.7 mg/dL (0.0-1.0); Blood Urea Nitrogen 12 mg/dL (9-16); C Reactive Protein 0.91 mg/dL (< or = 0.50); Calcium 8.8 mg/dL (8.4-10.2); Carbon Dioxide 25 mmol/L (22-29); Chloride 105 mmol/L (96-108); Creatinine Clr Calc Pharmacy 98.7; Estimated Glomerular Filt Rate > 60; Glucose Random 161 mg/dL (60-115); Lactate Dehydrogenase 163 U/L (122-220); Magnesium 1.7 mg/dL (1.6-2.6); Potassium 3.6 mmol/L (3.3-5.1); Sodium 139 mmol/L (135-145); Total Protein 7.2 g/dL (6.5-8.0)
[2020-04-28 11:31] LABS: B Type Natriuretic Peptide 292 pg/mL (<100)
[2020-04-28 11:50] LABS: Ferritin 4 ng/mL (10-250)
[2020-04-28 11:51] LABS: Troponin-I High Sensitivity 59.1 ng/L (<3.5-17.0)
[2020-04-28 11:54] LABS: Influenza A PCR NEGATIVE (Negative); Influenza B PCR NEGATIVE (Negative); Resp Syncy Virus RNA Qual PCR NEGATIVE (Negative); SARS COV2 PCR INHOUSE NEGATIVE (Negative)
[2020-04-28 12:01] LABS: Procalcitonin < 0.02 ng/mL
[2020-04-28] MEDS: 0.9 % Sodium Chloride 1,000 ML 999 ML IVCONT (12:35)
[2020-04-28] MEDS: cefTRIAXone sodium 1 GM in 0.9 % Sodium Chloride 50 ML IV (12:35)
[2020-04-28 13:10] LABS: Lactic Acid 1.7 mmol/L (0.5-2.0)
--- NOTE | 2020-04-28 14:33 | PC.NURSE ---
resting w/o complaint. talking on phone. doesn't stop talking for rn intervention. skin pwd. unlabored reps
--- NOTE | 2020-04-28 14:34 | PC.NURSE ---
took her lisinopril 5mg today. sony aware of bp
[2020-04-28 15:02] LABS: Troponin-I High Sensitivity 51.7 ng/L (<3.5-17.0)
[2020-04-28] MEDS: Labetalol HCL 100 MG/20 ML VIAL 10 MG IVPUSH ×2 (15:04→15:33)
[2020-04-28] MEDS: Nitroglycerin 2 % Oint 1 GM Packet 1 INCH TRANSDERMA (16:14)
[2020-04-28] MEDS: HYDROmorphone HCl 1 MG/ML SYRINGE IVPUSH (17:07)
[2020-04-28] MEDS: ondansetron HCL 4 MG/2 ML VIAL IVPUSH (17:07)
--- NOTE | 2020-04-28 19:08 | PC.NURSE ---
REPORT RECEIVED. PATIENT REPORTS DIFFICULTY BREATHING. RESPIRATORY RATE 22. BREATHING IS EVEN, NON-LABORED. SINUS RHYTHM ON [employer]GIVER. MAINTAINING SATS. NO ANGIOEDEMA. LUNGS CLEAR TO AUSCULTATION.
== END 2020-04-28 20:25 | disposition home or self-care (01) ==
PROVIDERS: Physician Assistant Medical; Emergency Provider Emergency Medicine; PCP Family Medicine
DX: I16.0 Hypertensive urgency (principal); R77.8 Other specified abnormalities of plasma proteins; R07.89 Other chest pain; R50.9 Fever, unspecified; B34.9 Viral infection, unspecified; Z20.822 Contact with and (suspected) exposure to COVID-19; E11.9 Type 2 diabetes mellitus without complications; I10 Essential (primary) hypertension; F17.210 Nicotine dependence, cigarettes, uncomplicated
CPT/HCPCS: 0241U; 36415; 71045; 80048; 80076; 81003; 81025; 82728; 83605; 83615; 83735; 83880; 84145; 84484; 85025; 85379; 85610; 86140; 87040; 93005; 96365; 96375; 96376; 99284; 99291; J0696; J1170; J2405

== ENCOUNTER 2020-07-16 11:00 | Emergency (ER) | payer OTHER, SELFPAY ==
--- NOTE | 2020-07-16 | ECG_ITS ---
Test Reason : PALPITATIONS Blood Pressure : / mmHG Vent. Rate : 094 BPM Atrial Rate : 094 BPM P-R Int : 152 ms QRS Dur : 084 ms QT Int : 370 ms P-R-T Axes : 059 -02 160 degrees QTc Int : 462 ms Normal sinus rhythm Possible Left atrial enlargement ST & T wave abnormality, consider lateral ischemia Prolonged QT Abnormal ECG When compared with ECG of 28-APR-2020 10:52, No significant change was found Referred By: Generic ED Physician Electronically Signed By:Marlon Mclain
--- NOTE | ~2020-07-16 | XR_ITS ---
EXAMINATION: XR CHEST CLINICAL INFORMATION: Left-sided chest wall pain COMPARISON: None TECHNIQUE: 2 views of the chest were obtained. FINDINGS: The lungs are well-expanded and clear of acute process. Heart size and pulmonary vascularity is normal. No gross bony abnormality seen. XR/XR chest 2V IMPRESSION: Unremarkable chest exam.
[2020-07-16 11:54] VITALS: BP 217/123; PULSE 99; RESP 18; TEMP 36.8; O2SAT 99; BMI 34.7
[2020-07-16 12:38] LABS: Glucose Urine UA 100 MG/DL (NEG); Leukocyte Esterase Urine NEG (NEG); Nitrite Urine NEG (NEG); Specific Gravity - Urine >= 1.030 (1.005-1.025); Urine Blood NEG (NEG); Urine Ketones 5 MG/DL (NEG); Urine Protein 1+ MG/DL (NEG-TRACE)
[2020-07-16 12:39] LABS: UPreg QC Valid YES; Urine Pregnancy NEGATIVE (NEGATIVE)
[2020-07-16 12:42] LABS: Appearance Urine CLEAR; Color Urine YELLOW
[2020-07-16 12:45] LABS: Basophils Percent Auto 0.4 % (0-2); Hemoglobin 11.1 g/dl (12.0-16.0); Imm Gran Abs Auto 0.06 X10*3/uL (0.00-0.03); Imm Gran Pct Auto 0.4 % (0.0-0.4); Mean Corpuscular Volume 71.7 fL (80-98); SCAN SMEAR FLAG 1; WBC ABN SCTR 1
[2020-07-16 12:47] LABS: Basophils Absolute Auto 0.1 X10*3/uL (0.0-0.2); Eosinophils Absolute Auto 0.3 X10*3/uL (0.0-0.4); Eosinophils Percent Auto 1.8 % (0-4); Hematocrit 36.7 % (37-47); Lymphocytes Absolute Auto 2.8 X10*3/uL (1.2-4.9); Mean Corpuscular HGB Conc 30.2 g/dl (31.0-35.0); Mean Corpuscular Hemoglobin 21.7 pg (27.0-33.0); Mean Platelet Volume 10.7 fL (9.4-12.3); Monocytes Absolute Auto 0.8 X10*3/uL (0.1-1.2); Monocytes Percent Auto 5.4 % (2-11); Neutrophils Absolute Auto 10.2 X10*3/uL (2.0-8.3); Platelet Count 288 X10*3/uL (160-400); Red Blood Count 5.12 X10*6/uL (4.20-5.50); Red Cell Distribution Width 17.5 % (11.0-16.0)
[2020-07-16 13:05] LABS: PLT ABN DIST 1; WBC ABN SCTR FOR CBC 1; White Blood Count 14.1 X10*3/uL (4.8-10.8)
[2020-07-16 13:09] LABS: Anion Gap 11 (12-20); Blood Urea Nitrogen 10 mg/dL (9-16); Calcium 9.2 mg/dL (8.4-10.2); Carbon Dioxide 27 mmol/L (22-29); Chloride 104 mmol/L (96-108); Creatinine Clr Calc Pharmacy 95.2; Estimated Glomerular Filt Rate > 60; Glucose Random 160 mg/dL (60-115); Potassium 3.4 mmol/L (3.3-5.1); Sodium 139 mmol/L (135-145)
[2020-07-16 13:14] LABS: RBC Urine 0 /HPF (0); Squamous Epithelial Cell Urine 2+ /LPF; WBC Urine 0 /HPF (0-4)
[2020-07-16 13:17] LABS: Troponin-I High Sensitivity 55.4 ng/L (<3.5-17.0)
--- NOTE | 2020-07-16 14:49 | ED_ITS ---
HPI - General Adult General Chief complaint: Abdominal Pain Stated complaint: abd pain Time Seen by Provider: 07/16/20 13:24 Related Data Previous Rx's Medication Instructions Recorded lisinopril 5 mg PO DAILY #30 tab 04/01/20 acetaminophen [Tylenol Extra 1,000 mg PO QID PRN #14 tab 04/28/20 Strength] albuterol sulfate 1 inh INHALATION QID PRN #8.5 g 04/28/20 azithromycin See Rx Instructions .ROUTE 04/28/20 .COMPLEX #6 tab cyclobenzaprine 10 mg PO TID PRN #10 tab 04/28/20 ibuprofen 800 mg PO Q8H PRN #14 tab 04/28/20 lisinopril 40 mg PO DAILY #30 tab 04/28/20 Allergies Allergy/AdvReac Type Severity Reaction Status Date / Time latex [Latex] Allergy Unknown RASH Verified 04/01/20 19:26 [facility] Past Medical History Medical History Diabetes mellitus HTN (hypertension) Social History Social History Alcohol intake: never Smoking Status: Current every day smoker Tobacco Type: Cigarette Cigarettes Per Day: 3 Physical Exam Vital Signs: Vital Signs: Last Vital Signs Temp 98.3 F 07/16/20 11:54 Pulse 99 07/16/20 11:54 Resp 18 07/16/20 11:54 BP 217/123 H 07/16/20 11:54 Pulse Ox 99 07/16/20 11:54 Body Mass Index 34.7 Course Course Course Narrative: 1450-This is rapid medical exam. 39yo female here with left sided upper back pain, chest tightness, upper AP, palpitations, urinary symptoms x days. Will need labs, EKG, CXR. Deferred HPI, ROS, PE to primary provider. Medical Decision Making Lab Data Result diagrams: 07/16/20 12:31 07/16/20 12:31 Labs: Lab Results 07/16/20 07/16/20 07/16/20 Range/Units 12:03 12:03 12:31 WBC 14.1 H (4.8-10.8) X10*3/uL RBC 5.12 (4.20-5.50) X10*6/uL Hgb 11.1 L (12.0-16.0) g/dl Hct 36.7 L (37-47) % MCV 71.7 L (80-98) fL MCH 21.7 L (27.0-33.0) pg MCHC 30.2 L (31.0-35.0) g/dl RDW 17.5 H (11.0-16.0) % Plt Count 288 (160-400) X10*3/uL MPV 10.7 (9.4-12.3) fL Immature Gran % (Auto) 0.4 (0.0-0.4) % Neut % (Auto) 72.0 (45-73) % Lymph % (Auto) 20.0 (20-40) % [place] % (Auto) 5.4 (2-11) % Eos % (Auto) 1.8 (0-4) % Baso % (Auto) 0.4 (0-2) % Lymph # (Auto) 2.8 (1.2-4.9) X10*3/uL [place] # (Auto) 0.8 (0.1-1.2) X10*3/uL Eos # (Auto) 0.3 (0.0-0.4) X10*3/uL Baso # (Auto) 0.1 (0.0-0.2) X10*3/uL Abs Immat Gran (auto) 0.06 H (0.00-0.03) X10*3/uL Absolute Neuts (auto) 10.2 H (2.0-8.3) X10*3/uL Absolute Nucleated RBC 0.000 (0.0-0.012) X10*3/uL Nucleated RBC % (auto) 0.0 (0.0-0.2) /100WBC Sodium (135-145) mmol/L Potassium (3.3-5.1) mmol/L Chloride (96-108) mmol/L Carbon Dioxide (22-29) mmol/L Anion Gap (12-20) BUN (9-16) mg/dL Creatinine (0.5-1.4) mg/dL Estim Creat Clear Calc Estimated GFR Random Glucose (60-115) mg/dL Calcium (8.4-10.2) mg/dL Troponin I High Sens (<3.5-17.0) ng/L Urine Color YELLOW Urine Appearance CLEAR Urine pH 6.0 (5.0-8.0) Ur Specific [place] >= 1.030 H (1.005-1.025) Urine Protein 1+ H (NEG-TRACE) MG/DL Urine Glucose (UA) 100 H (NEG) MG/DL Urine Ketones 5 (NEG) MG/DL Urine Blood NEG (NEG) Urine Nitrite NEG (NEG) Ur Leukocyte Esterase NEG (NEG) Urine RBC 0 (0) /HPF Urine WBC 0 (0-4) /HPF Ur Squamous Epith Cells 2+ /LPF Urine Bacteria NONE /LPF Urine Test NEGATIVE (NEGATIVE) 07/16/20 07/16/20 Range/Units 12:31 12:31 WBC (4.8-10.8) X10*3/uL RBC (4.20-5.50) X10*6/uL Hgb (12.0-16.0) g/dl Hct (37-47) % MCV (80-98) fL MCH (27.0-33.0) pg MCHC (31.0-35.0) g/dl RDW (11.0-16.0) % Plt Count (160-400) X10*3/uL MPV (9.4-12.3) fL Immature Gran % (Auto) (0.0-0.4) % Neut % (Auto) (45-73) % Lymph % (Auto) (20-40) % [place] % (Auto) (2-11) % Eos % (Auto) (0-4) % Baso % (Auto) (0-2) % Lymph # (Auto) (1.2-4.9) X10*3/uL [place] # (Auto) (0.1-1.2) X10*3/uL Eos # (Auto) (0.0-0.4) X10*3/uL Baso # (Auto) (0.0-0.2) X10*3/uL Abs Immat Gran (auto) (0.00-0.03) X10*3/uL Absolute Neuts (auto) (2.0-8.3) X10*3/uL Absolute Nucleated RBC (0.0-0.012) X10*3/uL Nucleated RBC % (auto) (0.0-0.2) /100WBC Sodium 139 (135-145) mmol/L Potassium 3.4 (3.3-5.1) mmol/L Chloride 104 (96-108) mmol/L Carbon Dioxide 27 (22-29) mmol/L Anion Gap 11 L (12-20) BUN 10 (9-16) mg/dL Creatinine 0.80 (0.5-1.4) mg/dL Estim Creat Clear Calc 95.2 Estimated GFR > 60 Random Glucose 160 H (60-115) mg/dL Calcium 9.2 (8.4-10.2) mg/dL Troponin I High Sens 55.4 H (<3.5-17.0) ng/L Urine Color Urine Appearance Urine pH (5.0-8.0) Ur Specific [place] (1.005-1.025) Urine Protein (NEG-TRACE) MG/DL Urine Glucose (UA) (NEG) MG/DL Urine Ketones (NEG) MG/DL Urine Blood (NEG) Urine Nitrite (NEG) Ur Leukocyte Esterase (NEG) Urine RBC (0) /HPF Urine WBC (0-4) /HPF Ur Squamous Epith Cells /LPF Urine Bacteria /LPF Urine Test (NEGATIVE) Discharge Plan Discharge Prescriptions: No Action lisinopril 5 mg tablet 5 mg PO DAILY Qty: 30 RF: 0 lisinopril 40 mg tablet 40 mg PO DAILY Qty: 30 RF: 0 cyclobenzaprine 10 mg tablet 10 mg PO TID PRN (Reason: muscle spasm) Qty: 10 RF: 0 azithromycin 250 mg tablet See Rx Instructions .ROUTE .COMPLEX Qty: 6 RF: 0 ibuprofen 800 mg tablet 800 mg PO Q8H PRN (Reason: pain) Qty: 14 RF: 0 acetaminophen [Tylenol Extra Strength] 500 mg tablet 1,000 mg PO QID PRN (Reason: fever or pain) Qty: 14 RF: 0 albuterol sulfate 90 mcg/actuation HFA aerosol inhaler 1 inh inhalation QID PRN (Reason: shortness of breath or wheezing) Qty: 8.5 RF: 0
[2020-07-16 16:58] VITALS: BP 148/88; PULSE 93; RESP 18; TEMP 36.7; O2SAT 99
[2020-07-16 17:09] VITALS: BP 151/89; PULSE 95; RESP 18; TEMP 36.7; O2SAT 99
--- NOTE | 2020-07-16 17:28 | ED_ITS ---
HPI - Abdominal Pain General Chief Complaint: Abdominal Pain Stated Complaint: abd pain Time Seen by Provider: 07/16/20 13:24 Source: patient Mode of arrival: ambulatory Limitations: no limitations Related Data Previous Rx's Medication Instructions Recorded lisinopril 5 mg PO DAILY #30 tab 04/01/20 acetaminophen [Tylenol Extra 1,000 mg PO QID PRN #14 tab 04/28/20 Strength] albuterol sulfate 1 inh INHALATION QID PRN #8.5 g 04/28/20 azithromycin See Rx Instructions .ROUTE 04/28/20 .COMPLEX #6 tab cyclobenzaprine 10 mg PO TID PRN #10 tab 04/28/20 ibuprofen 800 mg PO Q8H PRN #14 tab 04/28/20 lisinopril 40 mg PO DAILY #30 tab 04/28/20 Allergies Allergy/AdvReac Type Severity Reaction Status Date / Time latex [Latex] Allergy Unknown RASH Verified 04/01/20 19:26 Physical Exam Vital Signs: Vital Signs: Last Vital Signs Temp 98.1 F 07/16/20 17:09 Pulse 95 07/16/20 17:09 Resp 18 07/16/20 17:09 BP 151/89 H 07/16/20 17:09 Pulse Ox 99 07/16/20 17:09 Body Mass Index 34.7 MDM - Abdominal Pain Lab Data Result diagrams: 07/16/20 12:31 07/16/20 12:31 Labs: Lab Results 07/16/20 07/16/20 07/16/20 Range/Units 12:03 12:03 12:31 WBC 14.1 H (4.8-10.8) X10*3/uL RBC 5.12 (4.20-5.50) X10*6/uL Hgb 11.1 L (12.0-16.0) g/dl Hct 36.7 L (37-47) % MCV 71.7 L (80-98) fL MCH 21.7 L (27.0-33.0) pg MCHC 30.2 L (31.0-35.0) g/dl RDW 17.5 H (11.0-16.0) % Plt Count 288 (160-400) X10*3/uL MPV 10.7 (9.4-12.3) fL Immature Gran % (Auto) 0.4 (0.0-0.4) % Neut % (Auto) 72.0 (45-73) % Lymph % (Auto) 20.0 (20-40) % [place] % (Auto) 5.4 (2-11) % Eos % (Auto) 1.8 (0-4) % Baso % (Auto) 0.4 (0-2) % Lymph # (Auto) 2.8 (1.2-4.9) X10*3/uL [place] # (Auto) 0.8 (0.1-1.2) X10*3/uL Eos # (Auto) 0.3 (0.0-0.4) X10*3/uL Baso # (Auto) 0.1 (0.0-0.2) X10*3/uL Abs Immat Gran (auto) 0.06 H (0.00-0.03) X10*3/uL Absolute Neuts (auto) 10.2 H (2.0-8.3) X10*3/uL Absolute Nucleated RBC 0.000 (0.0-0.012) X10*3/uL Nucleated RBC % (auto) 0.0 (0.0-0.2) /100WBC Sodium (135-145) mmol/L Potassium (3.3-5.1) mmol/L Chloride (96-108) mmol/L Carbon Dioxide (22-29) mmol/L Anion Gap (12-20) BUN (9-16) mg/dL Creatinine (0.5-1.4) mg/dL Estim Creat Clear Calc Estimated GFR Random Glucose (60-115) mg/dL Calcium (8.4-10.2) mg/dL Troponin I High Sens (<3.5-17.0) ng/L Urine Color YELLOW Urine Appearance CLEAR Urine pH 6.0 (5.0-8.0) Ur Specific [place] >= 1.030 H (1.005-1.025) Urine Protein 1+ H (NEG-TRACE) MG/DL Urine Glucose (UA) 100 H (NEG) MG/DL Urine Ketones 5 (NEG) MG/DL Urine Blood NEG (NEG) Urine Nitrite NEG (NEG) Ur Leukocyte Esterase NEG (NEG) Urine RBC 0 (0) /HPF Urine WBC 0 (0-4) /HPF Ur Squamous Epith Cells 2+ /LPF Urine Bacteria NONE /LPF Urine Test NEGATIVE (NEGATIVE) 07/16/20 07/16/20 Range/Units 12:31 12:31 WBC (4.8-10.8) X10*3/uL RBC (4.20-5.50) X10*6/uL Hgb (12.0-16.0) g/dl Hct (37-47) % MCV (80-98) fL MCH (27.0-33.0) pg MCHC (31.0-35.0) g/dl RDW (11.0-16.0) % Plt Count (160-400) X10*3/uL MPV (9.4-12.3) fL Immature Gran % (Auto) (0.0-0.4) % Neut % (Auto) (45-73) % Lymph % (Auto) (20-40) % [place] % (Auto) (2-11) % Eos % (Auto) (0-4) % Baso % (Auto) (0-2) % Lymph # (Auto) (1.2-4.9) X10*3/uL [place] # (Auto) (0.1-1.2) X10*3/uL Eos # (Auto) (0.0-0.4) X10*3/uL Baso # (Auto) (0.0-0.2) X10*3/uL Abs Immat Gran (auto) (0.00-0.03) X10*3/uL Absolute Neuts (auto) (2.0-8.3) X10*3/uL Absolute Nucleated RBC (0.0-0.012) X10*3/uL Nucleated RBC % (auto) (0.0-0.2) /100WBC Sodium 139 (135-145) mmol/L Potassium 3.4 (3.3-5.1) mmol/L Chloride 104 (96-108) mmol/L Carbon Dioxide 27 (22-29) mmol/L Anion Gap 11 L (12-20) BUN 10 (9-16) mg/dL Creatinine 0.80 (0.5-1.4) mg/dL Estim Creat Clear Calc 95.2 Estimated GFR > 60 Random Glucose 160 H (60-115) mg/dL Calcium 9.2 (8.4-10.2) mg/dL Troponin I High Sens 55.4 H (<3.5-17.0) ng/L Urine Color Urine Appearance Urine pH (5.0-8.0) Ur Specific [place] (1.005-1.025) Urine Protein (NEG-TRACE) MG/DL Urine Glucose (UA) (NEG) MG/DL Urine Ketones (NEG) MG/DL Urine Blood (NEG) Urine Nitrite (NEG) Ur Leukocyte Esterase (NEG) Urine RBC (0) /HPF Urine WBC (0-4) /HPF Ur Squamous Epith Cells /LPF Urine Bacteria /LPF Urine Test (NEGATIVE) Discharge Plan Discharge Prescriptions: No Action lisinopril 5 mg tablet 5 mg PO DAILY Qty: 30 RF: 0 lisinopril 40 mg tablet 40 mg PO DAILY Qty: 30 RF: 0 cyclobenzaprine 10 mg tablet 10 mg PO TID PRN (Reason: muscle spasm) Qty: 10 RF: 0 azithromycin 250 mg tablet See Rx Instructions .ROUTE .COMPLEX Qty: 6 RF: 0 ibuprofen 800 mg tablet 800 mg PO Q8H PRN (Reason: pain) Qty: 14 RF: 0 acetaminophen [Tylenol Extra Strength] 500 mg tablet 1,000 mg PO QID PRN (Reason: fever or pain) Qty: 14 RF: 0 albuterol sulfate 90 mcg/actuation HFA aerosol inhaler 1 inh inhalation QID PRN (Reason: shortness of breath or wheezing) Qty: 8.5 RF: 0 PMFSH Past Medical History Medical History Diabetes mellitus HTN (hypertension) Social History Social History Alcohol intake: never Smoking Status: Current some day smoker Tobacco Type: Cigarette Cigarettes Per Day: 3 Use of substances other than those prescribed or required for medical reasons: No Advance Directives: No Advance Directives Information Provided: Yes
--- NOTE | 2020-07-16 17:40 | ED.GENADULT ---
HPI - General Adult General Chief complaint: Abdominal Pain Stated complaint: abd pain Time Seen by Provider: 07/16/20 13:24 Source: patient Mode of arrival: ambulatory Limitations: no limitations History of Present Illness HPI narrative: Patient history of fibromyalgia hypertension IBS diabetes comes here for diffuse body aches low back pain diffuse abdominal pain chest pain for last few days no nausea no vomiting no diarrhea no diaphoresis also patient complaining of slight redness and the vulvar area with whitish discharge and burning when she urinates no fever no chills no cough no shortness of breath Related Data Previous Rx's Medication Instructions Recorded lisinopril 5 mg PO DAILY #30 tab 04/01/20 acetaminophen [Tylenol Extra 1,000 mg PO QID PRN #14 tab 04/28/20 Strength] albuterol sulfate 1 inh INHALATION QID PRN #8.5 g 04/28/20 azithromycin See Rx Instructions .ROUTE 04/28/20 .COMPLEX #6 tab cyclobenzaprine 10 mg PO TID PRN #10 tab 04/28/20 ibuprofen 800 mg PO Q8H PRN #14 tab 04/28/20 lisinopril 40 mg PO DAILY #30 tab 04/28/20 tramadol 50 mg PO Q6H PRN #20 tab 07/16/20 Allergies Allergy/AdvReac Type Severity Reaction Status Date / Time latex [Latex] Allergy Unknown RASH Verified 04/01/20 19:26 Review of Systems Review of Systems: Constitutional : No Weight loss, No Fever, No Chills ENT/Mouth : No sore throat, No Rhinorrhea Eyes: No Eye Pain, No Swelling Cardiovascular : No Chest Pain, no palpitations Respiratory : No Cough, No Sputum, no shortness of breath Gastrointestinal : no Nausea, No Vomiting, No Diarrhea, + abdominal Pain, no black stools Genitourinary : No Dysuria, No Urinary Frequency Musculoskeletal : No joint pain, No Myalgias, No Joint Swelling Skin : No Skin Lesions, No rash Neuro : + Weakness, No Numbness, No Dizziness, No Headache Psych : No Anxiety/Panic, No Depression Heme/Lymph: No Bruising, No Lymphadenopathy Endocrine : No Polyuria, No Polydipsia All other systems reviewed and are negative [facility] Past Medical History Medical History Diabetes mellitus HTN (hypertension) Social History Social History Alcohol intake: never Smoking Status: Current some day smoker Tobacco Type: Cigarette Cigarettes Per Day: 3 Use of substances other than those prescribed or required for medical reasons: No Advance Directives: No Advance Directives Information Provided: Yes Physical Exam Vital Signs: Vital Signs: Last Vital Signs Temp 98.1 F 07/16/20 17:09 Pulse 95 07/16/20 17:09 Resp 18 07/16/20 17:09 BP 151/89 H 07/16/20 17:09 Pulse Ox 99 07/16/20 17:09 Body Mass Index 34.7 Appearance: Alert. Oriented X3. No acute distress. Eyes: Pupils equal, round and reactive to light. ENT: Pharynx normal. Neck: Normal inspection. Neck supple. CVS: Normal heart rate and rhythm. Pulses normal. Respiratory: No respiratory distress. Breath sounds normal. Abdomen: Soft diffuse abdominal tenderness no rebound tenderness or guarding. Bowel sounds are present, no mass palpable, no CVA tenderness Skin: Skin warm and dry. Normal skin color. Normal skin turgor. Extremities: No lower extremity edema. Diffuse tenderness in the muscles in the back Neuro: Oriented X 3. No motor deficit. No sensory deficit. Medical Decision Making MDM Narrative Medical decision making narrative: Patient's symptoms matching with fibromyalgia and IBS which going on for long time getting worse lately on Tylenol/ibuprofen and flex. Will discharge her on tramadol advised to follow with PCP also will give her Diflucan for vaginal candidiasis. Patient has a chronically elevated troponin without any acute EKG changes Lab Data Lab results reviewed: Yes I reviewed the patient's lab results. Result diagrams: 07/16/20 12:31 07/16/20 12:31 Labs: Lab Results 07/16/20 07/16/20 07/16/20 Range/Units 12:03 12:03 12:31 WBC 14.1 H (4.8-10.8) X10*3/uL RBC 5.12 (4.20-5.50) X10*6/uL Hgb 11.1 L (12.0-16.0) g/dl Hct 36.7 L (37-47) % MCV 71.7 L (80-98) fL MCH 21.7 L (27.0-33.0) pg MCHC 30.2 L (31.0-35.0) g/dl RDW 17.5 H (11.0-16.0) % Plt Count 288 (160-400) X10*3/uL MPV 10.7 (9.4-12.3) fL Immature Gran % (Auto) 0.4 (0.0-0.4) % Neut % (Auto) 72.0 (45-73) % Lymph % (Auto) 20.0 (20-40) % [place] % (Auto) 5.4 (2-11) % Eos % (Auto) 1.8 (0-4) % Baso % (Auto) 0.4 (0-2) % Lymph # (Auto) 2.8 (1.2-4.9) X10*3/uL [place] # (Auto) 0.8 (0.1-1.2) X10*3/uL Eos # (Auto) 0.3 (0.0-0.4) X10*3/uL Baso # (Auto) 0.1 (0.0-0.2) X10*3/uL Abs Immat Gran (auto) 0.06 H (0.00-0.03) X10*3/uL Absolute Neuts (auto) 10.2 H (2.0-8.3) X10*3/uL Absolute Nucleated RBC 0.000 (0.0-0.012) X10*3/uL Nucleated RBC % (auto) 0.0 (0.0-0.2) /100WBC Sodium (135-145) mmol/L Potassium (3.3-5.1) mmol/L Chloride (96-108) mmol/L Carbon Dioxide (22-29) mmol/L Anion Gap (12-20) BUN (9-16) mg/dL Creatinine (0.5-1.4) mg/dL Estim Creat Clear Calc Estimated GFR Random Glucose (60-115) mg/dL Calcium (8.4-10.2) mg/dL Troponin I High Sens (<3.5-17.0) ng/L Urine Color YELLOW Urine Appearance CLEAR Urine pH 6.0 (5.0-8.0) Ur Specific [place] >= 1.030 H (1.005-1.025) Urine Protein 1+ H (NEG-TRACE) MG/DL Urine Glucose (UA) 100 H (NEG) MG/DL Urine Ketones 5 (NEG) MG/DL Urine Blood NEG (NEG) Urine Nitrite NEG (NEG) Ur Leukocyte Esterase NEG (NEG) Urine RBC 0 (0) /HPF Urine WBC 0 (0-4) /HPF Ur Squamous Epith Cells 2+ /LPF Urine Bacteria NONE /LPF Urine Test NEGATIVE (NEGATIVE) 07/16/20 07/16/20 Range/Units 12:31 12:31 WBC (4.8-10.8) X10*3/uL RBC (4.20-5.50) X10*6/uL Hgb (12.0-16.0) g/dl Hct (37-47) % MCV (80-98) fL MCH (27.0-33.0) pg MCHC (31.0-35.0) g/dl RDW (11.0-16.0) % Plt Count (160-400) X10*3/uL MPV (9.4-12.3) fL Immature Gran % (Auto) (0.0-0.4) % Neut % (Auto) (45-73) % Lymph % (Auto) (20-40) % [place] % (Auto) (2-11) % Eos % (Auto) (0-4) % Baso % (Auto) (0-2) % Lymph # (Auto) (1.2-4.9) X10*3/uL [place] # (Auto) (0.1-1.2) X10*3/uL Eos # (Auto) (0.0-0.4) X10*3/uL Baso # (Auto) (0.0-0.2) X10*3/uL Abs Immat Gran (auto) (0.00-0.03) X10*3/uL Absolute Neuts (auto) (2.0-8.3) X10*3/uL Absolute Nucleated RBC (0.0-0.012) X10*3/uL Nucleated RBC % (auto) (0.0-0.2) /100WBC Sodium 139 (135-145) mmol/L Potassium 3.4 (3.3-5.1) mmol/L Chloride 104 (96-108) mmol/L Carbon Dioxide 27 (22-29) mmol/L Anion Gap 11 L (12-20) BUN 10 (9-16) mg/dL Creatinine 0.80 (0.5-1.4) mg/dL Estim Creat Clear Calc 95.2 Estimated GFR > 60 Random Glucose 160 H (60-115) mg/dL Calcium 9.2 (8.4-10.2) mg/dL Troponin I High Sens 55.4 H (<3.5-17.0) ng/L Urine Color Urine Appearance Urine pH (5.0-8.0) Ur Specific [place] (1.005-1.025) Urine Protein (NEG-TRACE) MG/DL Urine Glucose (UA) (NEG) MG/DL Urine Ketones (NEG) MG/DL Urine Blood (NEG) Urine Nitrite (NEG) Ur Leukocyte Esterase (NEG) Urine RBC (0) /HPF Urine WBC (0-4) /HPF Ur Squamous Epith Cells /LPF Urine Bacteria /LPF Urine Test (NEGATIVE) ECG Data Attestation: I personally reviewed and interpreted this ECG as follows: Interpretation: Normal sinus rhythm heart rate 94 beats per minute LVH with strain pattern no acute ST T wave changes as compared to old EKG normal axis Discharge Plan Discharge Clinical Impression: Fibromyalgia Patient Disposition: Home, Self-Care Instructions: Fibromyalgia (ED) Additional Instructions: Rest at home take medication as advised and follow with PCP Prescriptions: New tramadol 50 mg tablet 50 mg PO Q6H PRN (Reason: pain) Qty: 20 RF: 0 No Action lisinopril 5 mg tablet 5 mg PO DAILY Qty: 30 RF: 0 lisinopril 40 mg tablet 40 mg PO DAILY Qty: 30 RF: 0 cyclobenzaprine 10 mg tablet 10 mg PO TID PRN (Reason: muscle spasm) Qty: 10 RF: 0 azithromycin 250 mg tablet See Rx Instructions .ROUTE .COMPLEX Qty: 6 RF: 0 ibuprofen 800 mg tablet 800 mg PO Q8H PRN (Reason: pain) Qty: 14 RF: 0 acetaminophen [Tylenol Extra Strength] 500 mg tablet 1,000 mg PO QID PRN (Reason: fever or pain) Qty: 14 RF: 0 albuterol sulfate 90 mcg/actuation HFA aerosol inhaler 1 inh inhalation QID PRN (Reason: shortness of breath or wheezing) Qty: 8.5 RF: 0
[2020-07-16] MEDS: traMADoL HCL 50 MG TABLET PO (17:44)
[2020-07-16] MEDS: Fluconazole 150 MG TABLET PO (17:44)
== END 2020-07-16 19:49 | disposition home or self-care (01) ==
PROVIDERS: Emergency Provider Internal Medicine; PCP Family Medicine
DX: M79.7 Fibromyalgia (principal); R07.89 Other chest pain; R10.9 Unspecified abdominal pain; F17.210 Nicotine dependence, cigarettes, uncomplicated; Z71.6 Tobacco abuse counseling; Z79.899 Other long term (current) drug therapy
CPT/HCPCS: 36415; 71046; 80048; 81001; 81025; 84484; 85025; 93005; 99284

== ENCOUNTER 2020-08-10 09:39 | Outpatient (REF) | payer OTHER, SELFPAY ==
[2020-08-10 10:04] LABS: COVID-19 Test Negative (Negative); IDNOW Serial# 55D5AD1C
== END 2020-08-10 09:40 | disposition home or self-care (01) ==
LOC: HO.LAB 09:39
PROVIDERS: Visit Provider Internal Medicine
DX: Z20.822 Contact with and (suspected) exposure to COVID-19 (principal)
CPT/HCPCS: 36415; 87635; C9803

== ENCOUNTER 2020-09-02 16:20 | Inpatient (IN) | payer OTHER, SELFPAY ==
[2020-09-02] VITALS (7 sets, daily range): BP systolic 134–203; BP diastolic 75–111; PULSE 85–95; RESP 14–24; TEMP 36.9; O2SAT 96–99; BMI 35.6
--- NOTE | 2020-09-02 | ECG_ITS ---
Test Reason : REPEAT Blood Pressure : / mmHG Vent. Rate : 097 BPM Atrial Rate : 097 BPM P-R Int : 156 ms QRS Dur : 088 ms QT Int : 384 ms P-R-T Axes : 061 -06 141 degrees QTc Int : 487 ms Normal sinus rhythm Possible Left atrial enlargement ST & T wave abnormality, consider lateral ischemia Prolonged QT Abnormal ECG When compared with ECG of 02-SEP-2020 18:30, T wave inversion more evident in Lateral leads Referred By: Niesha Ramey Electronically Signed By:STEFFEN ADAM MD
--- NOTE | ~2020-09-02 | CT_ITS ---
EXAMINATION: CT HEAD WITHOUT CONTRAST CLINICAL INFORMATION: Right arm tingling COMPARISON: 03/02/2010 TECHNIQUE: Contiguous axial imaging was performed from the skull base to vertex without intravenous administration of contrast. This CT examination was performed using dose optimization techniques as appropriate, variously including the following: *Automated exposure control *Adjustment of mA and/or kV according to patient size (this includes techniques or standardized protocols for targeted exams where dose is matched to indication/reason for exam; i.e. extremities or head) *Use of iterative reconstruction technique DLP: 704 mGy-cm FINDINGS: There is no evidence of acute intracranial hemorrhage or territorial infarction. No abnormal mass effect or midline shift is seen. Bynum to white matter differentiation is well preserved. No extra-axial fluid collections are identified. The ventricles are normal in size. There is no abnormal attenuation within the brain parenchyma. The osseous structures and soft tissues are normal. The mastoid air cells and visualized portions of the paranasal sinuses are well aerated. CT/CT head/brain wo con IMPRESSION: No acute intracranial pathology.
--- NOTE | ~2020-09-02 | US_ITS ---
EXAMINATION: US RETROPERITONEAL LIMITED (RENAL ONLY) ;ULTRASOUND RENAL WITH DOPPLER CLINICAL INFORMATION: Hypertension. Rule out renal artery stenosis.. COMPARISON: CT abdomen and pelvis 01/09/2019 TECHNIQUE: Real-time grayscale, color Doppler, and duplex Doppler evaluation of the kidneys and renal vasculature was performed. FINDINGS: RENAL MEASUREMENTS: Right: 11.6 x 4.6 x 4.3 cm (Sag x AP x TV) Left: 12 x 5.5 x 5.1 cm (Sag x AP x TV) The renal parenchyma appears normal. No hydronephrosis or nephrolithiasis. DOPPLER INTERROGATION: Aorta: 120 cm/sec Right Main Renal Artery: Proximal: 200 cm/sec Mid: 130 cm/sec Distal: 172 cm/sec Left Main Renal Artery: Proximal: 126 cm/sec Mid: 142 cm/sec Distal: 124 cm/sec Renal-Aortic Ratio (RAR): Cannot be calculated as mid aortic velocity is > 100 cm/s. Segmental resistive indices: Right: 0.68-0.71 Left: 0.6-0.7 Renal veins are patent. US/US renal BI IMPRESSION: There is relatively elevated velocity at the proximal main right renal artery which corresponds with at least some degree of stenosis however as aortic velocity is somewhat elevated, renal aortic ratio cannot be calculated and percent stenosis cannot be accurately assessed. Further evaluation with CT angiography could be considered. Unremarkable appearance of the left renal vessels.
--- NOTE | ~2020-09-02 | CT_ITS ---
EXAMINATION: CT CERVICAL SPINE WITHOUT CONTRAST CLINICAL INFORMATION: Arm tingling COMPARISON: None TECHNIQUE: Axial images through the cervical spine without contrast. Sagittal and coronal reconstructions on the technologist workstation were performed. This CT examination was performed using dose optimization techniques as appropriate, variously including the following: *Automated exposure control *Adjustment of mA and/or kV according to patient size (this includes techniques or standardized protocols for targeted exams where dose is matched to indication/reason for exam; i.e. extremities or head) *Use of iterative reconstruction technique DLP: 473 mGy-cm FINDINGS: Bone alignment is normal. No fracture or dislocation is seen. There is mild degenerative spondylosis at C4-C5 and C5-C6. Disc spaces are normal. No disc herniation is seen. Spinal canal, lateral recesses and neural foramen appear patent at all levels. Mild degenerative changes at the C1-C2 articulation. There is a soft tissue ossification of the nuchal ligament at the C5 vertebral body level likely related to old soft tissue trauma. Prevertebral soft tissues are normal. Visualized lung apices are clear. There is shotty cervical lymphadenopathy. CT/CT cervical spine wo con IMPRESSION: Mild degenerative spondylosis at C4-C5 and C5-C6. Otherwise unremarkable exam.
--- NOTE | ~2020-09-02 | US_ITS ---
EXAMINATION: US RETROPERITONEAL LIMITED (RENAL ONLY) ;ULTRASOUND RENAL WITH DOPPLER CLINICAL INFORMATION: Hypertension. Rule out renal artery stenosis.. COMPARISON: CT abdomen and pelvis 01/09/2019 TECHNIQUE: Real-time grayscale, color Doppler, and duplex Doppler evaluation of the kidneys and renal vasculature was performed. FINDINGS: RENAL MEASUREMENTS: Right: 11.6 x 4.6 x 4.3 cm (Sag x AP x TV) Left: 12 x 5.5 x 5.1 cm (Sag x AP x TV) The renal parenchyma appears normal. No hydronephrosis or nephrolithiasis. DOPPLER INTERROGATION: Aorta: 120 cm/sec Right Main Renal Artery: Proximal: 200 cm/sec Mid: 130 cm/sec Distal: 172 cm/sec Left Main Renal Artery: Proximal: 126 cm/sec Mid: 142 cm/sec Distal: 124 cm/sec Renal-Aortic Ratio (RAR): Cannot be calculated as mid aortic velocity is > 100 cm/s. Segmental resistive indices: Right: 0.68-0.71 Left: 0.6-0.7 Renal veins are patent. US/US renal doppler IMPRESSION: There is relatively elevated velocity at the proximal main right renal artery which corresponds with at least some degree of stenosis however as aortic velocity is somewhat elevated, renal aortic ratio cannot be calculated and percent stenosis cannot be accurately assessed. Further evaluation with CT angiography could be considered. Unremarkable appearance of the left renal vessels.
--- NOTE | 2020-09-02 19:07 | ECG_ITS ---
Test Reason : NUMBNESS Blood Pressure : / mmHG Vent. Rate : 098 BPM Atrial Rate : 098 BPM P-R Int : 150 ms QRS Dur : 088 ms QT Int : 386 ms P-R-T Axes : 054 -13 136 degrees QTc Int : 492 ms Normal sinus rhythm Possible Left atrial enlargement Left ventricular hypertrophy Marked ST abnormality, possible lateral subendocardial injury Prolonged QT Abnormal ECG When compared with ECG of 16-JUL-2020 13:21, T wave inversion less evident in Lateral leads Referred By: Niesha Ramey Electronically Signed By:STEFFEN ADAM MD
--- NOTE | 2020-09-02 19:10 | ED.CHESTPAIN ---
HPI - Chest Pain General Chief Complaint: General Medical Stated Complaint: arm pain Time Seen by Provider: 09/02/20 18:47 Source: patient Mode of arrival: other Limitations: no limitations History of Present Illness HPI narrative: Patient comes to emergency room complaining of chest pressure and right arm pain with numbness tingling radiating towards the right arm. Patient states she has been off her blood pressure medications for over 2 weeks since she has not had any refills. On arrival in triage, patient's blood pressure was 232/127 Related Data Home Medications Medication Instructions Recorded Confirmed albuterol sulfate 2 inh INHALATION QID PRN 09/02/20 09/02/20 Previous Rx's Medication Instructions Recorded cyclobenzaprine 10 mg PO TID PRN #10 tab 04/28/20 ibuprofen 800 mg PO Q8H PRN #14 tab 04/28/20 lisinopril 40 mg tablet 40 mg PO DAILY #30 tab 07/20/20 metformin 500 mg tablet 500 mg PO BID #180 tab 07/20/20 Allergies Allergy/AdvReac Type Severity Reaction Status Date / Time latex [Latex] Allergy Unknown RASH Verified 07/20/20 10:43 Review of Systems Review of Systems: Constitutional : No Weight loss, No Fever, No Chills, No Night Sweats, No Fatigue, No Malaise ENT/Mouth : No Hearing loss, No Ear Pain, No Nasal Congestion, No Sinus Pain, No Hoarseness, No sore throat, No Rhinorrhea, No Swallowing Difficulty Eyes: No Eye Pain, No Swelling, No Redness, No Foreign Body, No Discharge, No Vision Changes Cardiovascular : Complaining of chest pain, radiating towards the right arm, and neck. Complaining of right arm numbness and tingling. No SOB, No Dyspnea on Exertion, No Orthopnea, No Edema, No Palpitations Respiratory : No Cough, No Sputum, No Wheezing, No Smoke Exposure, No Dyspnea Gastrointestinal : No Nausea, No Vomiting, No Diarrhea, No Constipation, No abdominal Pain, No Hematochezia, No Melena Genitourinary : no irregular bleeding, No Dysuria, No Urinary Frequency, No Hematuria, No Urinary Incontinence, No Urgency, No Flank Pain, No Urinary Flow Changes, No Hesitancy Musculoskeletal : No joint pain, No Myalgias, No Joint Swelling Skin : No Skin Lesions, No rash Neuro : No Weakness, No Numbness, No Paresthesias, No Loss of Consciousness, No Dizziness, No Headache Psych : No Anxiety/Panic, No Depression, No SI/HI/AH/VH, No Social Issues, Heme/Lymph: No Bruising, No Bleeding,No Lymphadenopathy Endocrine : No Polyuria, No Polydipsia, No Temperature Intolerance [facility] Past Medical History Medical History Diabetes mellitus HTN (hypertension) Social History Social History (Reviewed 07/20/20 @ 10:43 by Geno Armstrong [facility]) Alcohol intake: never Cigarettes Per Day: 3 Advance Directives: No Advance Directives Information Provided: Yes Physical Exam Vital Signs: Vital Signs: Last Vital Signs Temp 98.4 F 09/02/20 22:00 Pulse 90 09/02/20 22:00 Resp 20 09/02/20 22:00 BP 150/75 H 09/02/20 22:00 Pulse Ox 97 09/02/20 22:00 Body Mass Index 35.6 Appearance: Alert. Oriented X3. No acute distress. Eyes: Pupils equal, round and reactive to light. ENT: Pharynx normal. Neck: Normal inspection. Neck supple. No lymph nodes noted. No crepitus CVS: Normal heart rate and rhythm. Pulses normal. Normal S1 and S2 Respiratory: No respiratory distress. Breath sounds normal. No Wheezing. No rales Abdomen: Soft and nontender. No rigidity. No distention. good BS x4 Skin: Skin warm and dry. Normal skin color. Normal skin turgor. Extremities: No lower extremity edema. No lower extremity edema. No Lacerations. No Rash Neuro: Oriented X 3. No motor deficit. No sensory deficit. Moving all extermities. No slurred speech. Course Course Course Narrative: I discussed the EKGa [address] Flores. At this time, the EKG changes are likely secondary to long-term hypertension with left ventricular hypertension and repolarization abnormality. Patient received 1 dose of IV labetalol and has a nitropaste on, full-dose aspirin Patient's 1st troponin is 91. Patient has had elevated troponins in the past up to 55. Troponin 2. Pending. Patient's blood pressure improved to 152/87 Patient states that she has a headache, likely secondary from the nitro paste. Patient also states that she has ongoing tingling in her right upper extremity, no pain, no chest pain, no palpitations. CT scan ordered to rule out CVA which is unlikely. I discussed the patient with Dr. Clancy, patient being admitted. MDM - Chest Pain Lab Data Result diagrams: 09/02/20 19:03 09/02/20 19:03 Labs: Lab Results 09/02/20 09/02/20 09/02/20 Range/Units 19:03 19:03 19:03 WBC 15.0 H (4.8-10.8) X10*3/uL RBC 4.99 (4.20-5.50) X10*6/uL Hgb 11.0 L (12.0-16.0) g/dl Hct 35.5 L (37-47) % MCV 71.1 L (80-98) fL MCH 22.0 L (27.0-33.0) pg MCHC 31.0 (31.0-35.0) g/dl RDW 18.0 H (11.0-16.0) % Plt Count 313 (160-400) X10*3/uL MPV 11.0 (9.4-12.3) fL Immature Gran % (Auto) 1.0 H (0.0-0.4) % Neut % (Auto) 64.9 (45-73) % Lymph % (Auto) 25.6 (20-40) % [place] % (Auto) 5.9 (2-11) % Eos % (Auto) 2.1 (0-4) % Baso % (Auto) 0.5 (0-2) % Lymph # (Auto) 3.8 (1.2-4.9) X10*3/uL [place] # (Auto) 0.9 (0.1-1.2) X10*3/uL Eos # (Auto) 0.3 (0.0-0.4) X10*3/uL Baso # (Auto) 0.1 (0.0-0.2) X10*3/uL Abs Immat Gran (auto) 0.15 H (0.00-0.03) X10*3/uL Absolute Neuts (auto) 9.7 H (2.0-8.3) X10*3/uL Absolute Nucleated RBC 0.000 (0.0-0.012) X10*3/uL Nucleated RBC % (auto) 0.0 (0.0-0.2) /100WBC Smear Tech's Comments VERIFIED PT 13.2 H (10.8-13.0) SEC INR 1.1 (0.9-1.1) Sodium 137 (135-145) mmol/L Potassium 3.3 (3.3-5.1) mmol/L Chloride 100 (96-108) mmol/L Carbon Dioxide 28 (22-29) mmol/L Anion Gap 12 (12-20) BUN 13 (9-16) mg/dL Creatinine 0.85 (0.5-1.4) mg/dL Estim Creat Clear Calc 90.9 Estimated GFR > 60 Random Glucose 202 H (60-115) mg/dL Calcium 9.6 (8.4-10.2) mg/dL Total Bilirubin 0.4 (0.0-1.0) mg/dL Direct Bilirubin < 0.2 (0.0-0.5) mg/dL AST 19 (5-31) U/L ALT 12 (0-31) U/L Alkaline Phosphatase 82 (39-117) U/L Troponin I High Sens (<3.5-17.0) ng/L B-Natriuretic Peptide (<100) pg/mL Total Protein 7.3 (6.5-8.0) g/dL Albumin 3.9 (3.5-5.0) g/dL COVID-19 (YANN) (Negative) COVID-19 Clin Com 09/02/20 09/02/20 09/02/20 Range/Units 19:03 19:47 21:54 WBC (4.8-10.8) X10*3/uL RBC (4.20-5.50) X10*6/uL Hgb (12.0-16.0) g/dl Hct (37-47) % MCV (80-98) fL MCH (27.0-33.0) pg MCHC (31.0-35.0) g/dl RDW (11.0-16.0) % Plt Count (160-400) X10*3/uL MPV (9.4-12.3) fL Immature Gran % (Auto) (0.0-0.4) % Neut % (Auto) (45-73) % Lymph % (Auto) (20-40) % [place] % (Auto) (2-11) % Eos % (Auto) (0-4) % Baso % (Auto) (0-2) % Lymph # (Auto) (1.2-4.9) X10*3/uL [place] # (Auto) (0.1-1.2) X10*3/uL Eos # (Auto) (0.0-0.4) X10*3/uL Baso # (Auto) (0.0-0.2) X10*3/uL Abs Immat Gran (auto) (0.00-0.03) X10*3/uL Absolute Neuts (auto) (2.0-8.3) X10*3/uL Absolute Nucleated RBC (0.0-0.012) X10*3/uL Nucleated RBC % (auto) (0.0-0.2) /100WBC Smear Tech's Comments PT (10.8-13.0) SEC INR (0.9-1.1) Sodium (135-145) mmol/L Potassium (3.3-5.1) mmol/L Chloride (96-108) mmol/L Carbon Dioxide (22-29) mmol/L Anion Gap (12-20) BUN (9-16) mg/dL Creatinine (0.5-1.4) mg/dL Estim Creat Clear Calc Estimated GFR Random Glucose (60-115) mg/dL Calcium (8.4-10.2) mg/dL Total Bilirubin (0.0-1.0) mg/dL Direct Bilirubin (0.0-0.5) mg/dL AST (5-31) U/L ALT (0-31) U/L Alkaline Phosphatase (39-117) U/L Troponin I High Sens 91.4 H* 82.2 H* (<3.5-17.0) ng/L B-Natriuretic Peptide 181 H (<100) pg/mL Total Protein (6.5-8.0) g/dL Albumin (3.5-5.0) g/dL COVID-19 (YANN) Negative (Negative) COVID-19 Clin Com See Note ECG Data ECG #1: Attestation: I personally reviewed and interpreted this ECG as follows: (Sinus rhythm, heart rate 98, T-wave inversions in lead 1, aVL, mild ST segment elevation in V1 V2 V3, QTC 492) ECG #2: Attestation: I personally reviewed and interpreted this ECG as follows: (Sinus rhythm, heart rate 97, T-wave inversions in lead 1, aVL, [address] segment elevation in V1 V2 V3, QTC 492, unchanged EKG from 18:30) Discharge Plan Discharge Clinical Impression: Hypertensive urgency Patient Disposition: Admitted As Inpatient
[2020-09-02 19:12] LABS: Basophils Absolute Auto 0.1 X10*3/uL (0.0-0.2); Basophils Percent Auto 0.5 % (0-2); Eosinophils Absolute Auto 0.3 X10*3/uL (0.0-0.4); Eosinophils Percent Auto 2.1 % (0-4); Hematocrit 35.5 % (37-47); Imm Gran Abs Auto 0.15 X10*3/uL (0.00-0.03); Lymphocytes Absolute Auto 3.8 X10*3/uL (1.2-4.9); Lymphocytes Percent Auto 25.6 % (20-40); MANUAL DIFF FLAG SCAN; Mean Corpuscular Volume 71.1 fL (80-98); Monocytes Absolute Auto 0.9 X10*3/uL (0.1-1.2); Monocytes Percent Auto 5.9 % (2-11); Neutrophils Absolute Auto 9.7 X10*3/uL (2.0-8.3); Neutrophils Percent Auto 64.9 % (45-73); Platelet Count 313 X10*3/uL (160-400); Red Blood Count 4.99 X10*6/uL (4.20-5.50); SCAN SMEAR FLAG 1
[2020-09-02 19:13] LABS: PLT ABN DIST 1
[2020-09-02 19:16] LABS: INTERNATIONAL NORM RATIO 1.1 (0.9-1.1); Prothrombin Time 13.2 SEC (10.8-13.0); SLIDE REVIEW VERIFIED
[2020-09-02 19:35] LABS: Alanine Aminotransferase 12 U/L (0-31); Albumin Level 3.9 g/dL (3.5-5.0); Alkaline Phosphatase 82 U/L (39-117); Anion Gap 12 (12-20); Aspartate Amino Transferase 19 U/L (5-31); Bilirubin Direct < 0.2 mg/dL (0.0-0.5); Bilirubin Total 0.4 mg/dL (0.0-1.0); Blood Urea Nitrogen 13 mg/dL (9-16); Calcium 9.6 mg/dL (8.4-10.2); Carbon Dioxide 28 mmol/L (22-29); Chloride 100 mmol/L (96-108); Creatinine Clr Calc Pharmacy 90.9; Estimated Glomerular Filt Rate > 60; Glucose Random 202 mg/dL (60-115); Potassium 3.3 mmol/L (3.3-5.1); Sodium 137 mmol/L (135-145); Total Protein 7.3 g/dL (6.5-8.0)
[2020-09-02] MEDS: Nitroglycerin 2 % Oint 1 GM Packet 1 INCH TRANSDERMA (19:36)
[2020-09-02] MEDS: Labetalol HCL 100 MG/20 ML VIAL 10 MG IVPUSH (19:36)
[2020-09-02 19:41] LABS: B Type Natriuretic Peptide 181 pg/mL (<100); Troponin-I High Sensitivity 91.4 ng/L (<3.5-17.0)
--- NOTE | 2020-09-02 19:51 | PC.NURSE ---
PT REPORTS IMPROVEMENT IN CHEST, NOW 09/03. PT ALSO FEELS LIKE HER RIGHT ARM HAS LOOSENED UP FOLLOWING MEDICATIONS.
--- NOTE | 2020-09-02 20:12 | PHA.MEDREC ---
Pharmacy Consult ? Medication Reconciliation Pharmacy has completed the medication reconciliation. Patient has been non adherent to medication for > 2 weeks
[2020-09-02 20:25] LABS: COVID-19 Test Negative (Negative); IDNOW Serial# 9DD0AD1C
--- NOTE | 2020-09-02 22:00 | PC.NURSE ---
BP NOTABLY REDUCED SINCE ARRIVAL, NOW 134/75, PT NOW C/O FRONTAL HEADACHE AND WORSENING PAIN TO RUE W/ FEELING OF SWELLING TO R HAND, PROVIDER AWARE.
[2020-09-02 22:38] LABS: Troponin-I High Sensitivity 82.2 ng/L (<3.5-17.0)
[2020-09-03] VITALS (12 sets, daily range): BP systolic 160–186; BP diastolic 80–105; PULSE 72–101; RESP 14–20; TEMP 36.1–37.1; O2SAT 96–98
--- NOTE | 2020-09-03 | P.HPHOSP_ITS ---
History of Present Illness Date of Service: 09/03/20 Chief Complaint: Chest pain 39-year-old female with a past medical history of hypertension, diabetes, history of renal stones, arthritis presented to the hospital with a chief complaint of chest pressure/right arm pain/numbness/tingling. Denies any associated nausea vomiting. Denies any lightheadedness or dizziness. Patient reports that she has not been taking her blood pressure medications as she ran out of them for the past 2 weeks. Denies any headaches or blurry visions. Denies any focal weakness. Denies GI or symptoms. Review of all other systems is negative except mentioned above ER course: Per ER team patient blood pressure on the presentation noted to be 232/127. CT head pending. Exam nonfocal. EKG showed [address] elevations in V1 V2 V3, nonspecific T-wave inversions; ER team spoke to Dr. Flores from Cardiology- reported that EKG findings are not concerning for STEMI, suggested to treat hypertensive emergency. Patient was given nitro paste and labetalol in the ER with mild improvement in the blood pressure. Also given aspirin. ER team mentioned that the follow-up EKG after half an hour did not show any dynamic changes. Admitted for further management. [facility] Medical History Diabetes mellitus HTN (hypertension) Social History Household Members: Children Housing: Apartment Do you presently have visiting nurse or other home services: No Alcohol intake: never Patient Tobacco Use Status: Current someday Tobacco user Tobacco use type: Cigarette Cigarettes Per Day: 3 e-Cigarette/Vaping Use: Never Used Second Hand Smoke Exposure: No service: No Current occupational status: employed Meds Allergies Allergy/AdvReac Type Severity Reaction Status Date / Time latex [Latex] Allergy Unknown RASH Verified 09/03/20 12:12 Active Medications: Current Medications Generic Name Dose Route Start Last Admin Trade Name Freq PRN Reason Stop Dose Admin Acetaminophen 650 mg 09/02/20 23:53 Acetaminophen 325 Mg Tablet PO Q6H PRN Pain, Mild (Pain Scale 1-3) Albuterol Sulfate 2 puff 09/02/20 23:55 Albuterol Sulfate 90 Mcg 8 Gm Inhaler INHALE QID PRN shortness of breath or wheezing Cyclobenzaprine HCl 10 mg 09/02/20 23:55 Cyclobenzaprine Hcl 10 Mg Tablet PO TID PRN muscle spasm Enoxaparin Sodium 40 mg 09/02/20 23:45 Enoxaparin Sodium 40 Mg/0.4 Ml Syringe SUBCUT Q24H [facility] Insulin Human Lispro 0 unit 09/03/20 07:30 Insulin Lispro 100 Unit/Ml 3 Ml Vial SUBCUT QIDACHS [facility] Protocol Magnesium Hydroxide 30 ml 09/02/20 23:53 Milk Of Magnesia 30 Ml Oral.Susp PO DAILY PRN Constipation Nitroglycerin 0.4 mg 09/02/20 23:53 Nitroglycerin 0.4 Mg Tab.Subl SUBLINGUAL Q5M PRN Chest Pain Pharmacy Consult 1 each 09/02/20 19:45 Consult Rx Perform Med Rec MISCELLANE ONCE PRN Consult order Sodium Chloride 3 ml 09/03/20 00:00 0.9 % Sodium Chloride Flush 3 Ml Syringe IVFLUSH QSHIFT [facility] Home Medications Medication Instructions Recorded Confirmed Last Taken Type albuterol sulfate 2 inh INHALATION QID PRN 09/02/20 09/02/20 Unknown History Physical Exam Vital Signs and Narrative: Vital Signs: Last Vital Signs Temp 98.4 F 09/02/20 22:00 Pulse 90 09/02/20 22:00 Resp 20 09/02/20 22:00 BP 150/75 H 09/02/20 22:00 Pulse Ox 97 09/02/20 22:00 Body Mass Index 35.6 Gen: Appears be in no acute distress HEENT: NCAT, Moist mucosa. Pulmonary: Vesicular breath sounds, fair air entry CVS: Normal S1-S2 Abdomen: BS+, Soft, Nontender Extremities: Warm well perfused Neuro: Alert and awake. Grossly nonfocal Results Labs CBC and Chem 7: 09/03/20 16:40 09/04/20 17:51 Labs: Laboratory Results - last 24 hr 09/02/20 09/02/20 09/02/20 19:03 19:03 19:03 MCV 71.1 L MCH 22.0 L MCHC 31.0 RDW 18.0 H Plt Count 313 MPV 11.0 Immature Gran % (Auto) 1.0 H Neut % (Auto) 64.9 Lymph % (Auto) 25.6 [place] % (Auto) 5.9 Eos % (Auto) 2.1 Baso % (Auto) 0.5 Lymph # (Auto) 3.8 [place] # (Auto) 0.9 Eos # (Auto) 0.3 Baso # (Auto) 0.1 Abs Immat Gran (auto) 0.15 H Absolute Neuts (auto) 9.7 H Absolute Nucleated RBC 0.000 Nucleated RBC % (auto) 0.0 Smear Tech's Comments VERIFIED PT 13.2 H INR 1.1 Anion Gap 12 Estim Creat Clear Calc 90.9 Estimated GFR > 60 Random Glucose 202 H Calcium 9.6 Total Bilirubin 0.4 Direct Bilirubin < 0.2 AST 19 ALT 12 Alkaline Phosphatase 82 Troponin I High Sens B-Natriuretic Peptide Total Protein 7.3 Albumin 3.9 COVID-19 (YANN) COVID-19 Clin Com 09/02/20 09/02/20 09/02/20 19:03 19:47 21:54 MCV MCH MCHC RDW Plt Count MPV Immature Gran % (Auto) Neut % (Auto) Lymph % (Auto) [place] % (Auto) Eos % (Auto) Baso % (Auto) Lymph # (Auto) [place] # (Auto) Eos # (Auto) Baso # (Auto) Abs Immat Gran (auto) Absolute Neuts (auto) Absolute Nucleated RBC Nucleated RBC % (auto) Smear Tech's Comments PT INR Anion Gap Estim Creat Clear Calc Estimated GFR Random Glucose Calcium Total Bilirubin Direct Bilirubin AST ALT Alkaline Phosphatase Troponin I High Sens 91.4 H* 82.2 H* B-Natriuretic Peptide 181 H Total Protein Albumin COVID-19 (YANN) Negative COVID-19 Clin Com See Note Assessment and Plan (1) Chest pain: Status: Acute 39-year-old female with a past medical history of hypertension, diabetes, arthritis, history of renal calculi presented to the hospital with a chief complaint of chest pain/right arm numbness/tingling. Hypertensive emergency: Patient was given nitro paste and labetalol in the ER. Blood pressure improved to 150/75. Will continue to monitor. P.r.n. labetalol. Patient's blood pressure is already at the goal. CT head negative for acute pocess. Chest pain/right arm numbness/tingling: Improving symptomatically. EKG showed ST segment changes-not concerning for STEMI as per Cardiology. Follow-up EKG showed no dynamic changes. Troponin standing dime-91 followed by 82.[address] flores, recommended no heparin drip at this point. Echocardiogram Monitor on telemetry Sublingual nitroglycerin p.r.n. for chest pain Continue aspirin, statin, beta-eladio. Diabetes: Insulin sliding scale DVT prophylaxis: Subcu heparin Code status: Full code
[2020-09-03] MEDS: Aspirin Enteric Coated 325 MG TABLET.DR PO (00:15)
[2020-09-03] MEDS: Cyclobenzaprine HCl 10 MG TABLET PO (00:15)
[2020-09-03] MEDS: Acetaminophen 325 MG TABLET 650 MG PO (00:16)
--- NOTE | 2020-09-03 04:00 | PC.NURSE ---
BP Hospitalist (Julieth) notified
[2020-09-03] MEDS: Labetalol HCL 100 MG/20 ML VIAL 10 MG IVPUSH (04:08)
[2020-09-03] MEDS: 0.9 % Sodium Chloride Flush 3 ML SYRINGE IVFLUSH ×4 (04:13→23:24)
[2020-09-03] MEDS: oxyCODONE HCl Immed Release 5 MG TABLET PO (04:32)
[2020-09-03] MEDS: Enoxaparin Sodium 40 MG/0.4 ML SYRINGE SUBCUT (04:33)
[2020-09-03 07:26] LABS: MANUAL DIFF FLAG NO
[2020-09-03 07:29] LABS: Basophils Absolute Auto 0.1 X10*3/uL (0.0-0.2); Basophils Percent Auto 0.3 % (0-2); Eosinophils Absolute Auto 0.3 X10*3/uL (0.0-0.4); Eosinophils Percent Auto 2.2 % (0-4); Hematocrit 32.4 % (37-47); Hemoglobin 10.2 g/dl (12.0-16.0); Imm Gran Abs Auto 0.07 X10*3/uL (0.00-0.03); Imm Gran Pct Auto 0.5 % (0.0-0.4); Lymphocytes Absolute Auto 3.6 X10*3/uL (1.2-4.9); Lymphocytes Percent Auto 23.6 % (20-40); Mean Corpuscular HGB Conc 31.5 g/dl (31.0-35.0); Mean Corpuscular Hemoglobin 22.2 pg (27.0-33.0); Mean Corpuscular Volume 70.4 fL (80-98); Monocytes Percent Auto 6.2 % (2-11); Neutrophils Absolute Auto 10.3 X10*3/uL (2.0-8.3); Neutrophils Percent Auto 67.2 % (45-73); Platelet Count 284 X10*3/uL (160-400); Red Cell Distribution Width 18.1 % (11.0-16.0); White Blood Count 15.3 X10*3/uL (4.8-10.8)
[2020-09-03 07:30] LABS: Glucose, Whole Blood 164 mg/dL (60-115)
[2020-09-03 07:56] LABS: Anion Gap 11 (12-20); Blood Urea Nitrogen 11 mg/dL (9-16); Carbon Dioxide 28 mmol/L (22-29); Chloride 102 mmol/L (96-108); Cholesterol 185 mg/dL; Creatinine Clr Calc Pharmacy 100.3; Estimated Glomerular Filt Rate > 60; Glucose Random 166 mg/dL (60-115); HDL Cholesterol 34 mg/dL; LDL Cholesterol Calculated 125 mg/dl; Potassium 3.1 mmol/L (3.3-5.1); Sodium 138 mmol/L (135-145); Triglycerides 133 mg/dL
[2020-09-03 07:57] LABS: Glucose, Whole Blood 208 mg/dL (60-115)
[2020-09-03 08:07] LABS: Glucose, Whole Blood 193 mg/dL (60-115)
[2020-09-03] MEDS: Metoprolol Tartrate 12.5 MG HALFTAB PO ×2 (09:27→20:43)
[2020-09-03] MEDS: Aspirin Enteric Coated 81 MG TABLET.DR PO (09:27)
--- NOTE | 2020-09-03 09:44 | P.CONCA_ITS ---
History of Present Illness History of Present Illness Date of Service: 09/03/20 Consult reason: troponin elevation and other (Hypertensive urgency) Chief complaint: HTN Emergency Narrative: I was requested to see Amy in cardiology consultation today for marked elevation of blood pressure with chest pressure and abnormal troponin. She is a 39 year old woman with prior history of hypertension, diabetes who ran out of her medications for 2 weeks. She says she was not able to get refills and was not taking any medications. Eventually she started noticing swelling at nighttime for last few days and started noticing numbness in her hands and subsequently developed shoulder and chest pressure. She came to the hospital was noted to have marked hypertension with systolic blood pressure in the range of 230/130. Initial EKG was concerning for acute ischemia however this is more suggestive of LVH with repolarization abnormality with no change after repeat. Patient was given labetalol and nitro paste with improvement in her blood pressure, however this morning her blood pressure spiked again. She denies any chest pressure this morning. Her troponin warm minimally elevated but flat. This is most suggestive subendocardial strain. Review of Systems Constitutional: Constitutional: Denies chills, Reports excessive sweating, Denies fever(s), Reports snoring and Reports stops breathing during sleep Cardiovascular: Cardiovascular: Reports chest pain, Denies lightheadedness, Denies Loss of Consciousness, Denies palpitations and Denies dyspnea Respiratory: Respiratory: Reports no additional respiratory complaints, Denies dyspnea and Reports snoring Gastrointestinal: Gastrointestinal: Reports no additional gastrointestinal complaints Musculoskeletal: Musculoskeletal: Reports numbness and Reports other (Diffuse muscle aches) Neurologic: Reports system reviewed and no additional complaints, except as documented and Reports numbness Psychiatric: Psychiatric: Reports no additional psychiatric complaints Endocrine: Endocrine: Reports no additional endocrine complaints, Reports excessive sweating and Denies palpitations [facility] Past Medical History Medical History Diabetes mellitus HTN (hypertension) Social History Social History Household Members: Children Housing: Apartment Do you presently have visiting nurse or other home services: No Alcohol intake: never Patient Tobacco Use Status: Current someday Tobacco user Tobacco use type: Cigarette Cigarettes Per Day: 3 Smoked in Last 30 Days: Yes e-Cigarette/Vaping Use: Never Used Patient Interested in Nicotine Replacement: No Patient Given Instructions on How to Stop Smoking: No Second Hand Smoke Exposure: No Use of substances other than those prescribed or required for medical reasons: No Currently Displaying Signs/Symptoms of Drug Intoxication Withdrawal: No Any prior treatment program specific to substance use: No Have you been hit, kicked, punched, or otherwise hurt by someone within the past year? If so, by whom?: No Do you feel safe in your current relationship?: Yes Is there a partner from a previous relationship who is making you feel unsafe now?: No Are you made to feel afraid or neglected: No Advance Directives: No Advance Directives Information Provided: Yes Do you have thoughts of harming others: None Recently lost weight without trying: No How much weight loss: Not applicable Eating poorly because of decreased appetite: No Nutrition screen score: 0 Nutrition Risks: No Nutritional Risk Patient : No : No Poor oral hygiene: No Meds Allergies Allergy/AdvReac Type Severity Reaction Status Date / Time latex [Latex] Allergy Unknown RASH Verified 07/20/20 10:43 Active Medications: Current Medications Generic Name Dose Route Start Last Admin Trade Name Freq PRN Reason Stop Dose Admin Acetaminophen 650 mg 09/02/20 23:53 Acetaminophen 325 Mg Tablet PO Q6H PRN Pain, Mild (Pain Scale 1-3) Albuterol Sulfate 2 puff 09/02/20 23:55 Albuterol Sulfate 90 Mcg 8 Gm Inhaler INHALE QID PRN shortness of breath or wheezing Aspirin 81 mg 09/03/20 09:00 09/03/20 09:27 Aspirin Enteric Coated 81 Mg Tablet. PO 81 mg DAILY MESHA Administration Atorvastatin Calcium 80 mg 09/03/20 21:00 Atorvastatin Calcium 80 Mg Tablet PO BEDTIME MESHA Cyclobenzaprine HCl 10 mg 09/02/20 23:55 09/03/20 00:15 Cyclobenzaprine Hcl 10 Mg Tablet PO 10 mg TID PRN Administration muscle spasm Enoxaparin Sodium 40 mg 09/03/20 02:00 09/03/20 04:33 Enoxaparin Sodium 40 Mg/0.4 Ml Syringe SUBCUT 40 mg Q24H MESHA Administration Insulin Human Lispro 0 unit 09/03/20 07:30 09/03/20 09:30 Insulin Lispro 100 Unit/Ml 3 Ml Vial SUBCUT Not Given QIDACHS [facility] Protocol Labetalol HCl 10 mg 09/03/20 00:08 09/03/20 04:08 Labetalol Hcl 100 Mg/20 Ml Vial IVPUSH 10 mg Q4H PRN Administration BP>180/90 Magnesium Hydroxide 30 ml 09/02/20 23:53 Milk Of Magnesia 30 Ml Oral.Susp PO DAILY PRN Constipation Metoprolol Tartrate 12.5 mg 09/03/20 09:00 09/03/20 09:27 Metoprolol Tartrate 12.5 Mg Halftab PO 12.5 mg BID MESHA Administration Protocol Nitroglycerin 0.4 mg 09/02/20 23:53 Nitroglycerin 0.4 Mg Tab.Subl SUBLINGUAL Q5M PRN Chest Pain Pharmacy Consult 1 each 09/02/20 19:45 Consult Rx Perform Med Rec MISCELLANE ONCE PRN Consult order Sodium Chloride 3 ml 09/03/20 00:00 09/03/20 09:28 0.9 % Sodium Chloride Flush 3 Ml Syringe IVFLUSH 3 ml QSHIFT [facility] Administration Home Medications Medication Instructions Recorded Confirmed Last Taken Type albuterol sulfate 2 inh INHALATION QID PRN 09/02/20 09/02/20 Unknown History Physical Exam Vital Signs: Vital Signs: Last Vital Signs Temp 97 F 09/03/20 08:00 Pulse 72 09/03/20 09:27 Resp 18 09/03/20 08:00 BP 182/80 H 09/03/20 09:27 Pulse Ox 96 09/03/20 08:00 Body Mass Index 35.6 Const: General: cooperative, comfortable, no acute distress, alert, awake, anxious, Cushingoid facies and tired appearing Nutritional Appearance: obese Orientation/consciousness: patient oriented x3 Limitations: no limitations HENMT: Head: Yes normocephalic and Yes atraumatic Neck: Neck: Yes trachea midline, Yes supple and Yes no JVD Resp: Effort & Inspection: normal respiratory effort Auscultation: clear to auscultation bilaterally Cardio: Jugular venous distension: no JVD Palpation: normal PMI Rate: regular rate Rhythm: regular rhythm Heart sounds: S1 normal heart sound present, S2 normal heart sound present and Other heart sounds present (S4 present) GI: Inspection: Yes obesity Auscultation: Hypoactive bowel sounds present Skin: General skin exam: no rashes or lesions noted Neuro: General: patient oriented x3 and no focal motor deficits Extrem: General: Yes no clubbing, cyanosis or edema Psych: Appearance: grossly normal Affect: Anxious affect present Results Labs and Meds Result diagrams: 09/03/20 07:15 09/03/20 07:15 Lab results: Laboratory Results - last 24 hr 09/02/20 09/02/20 09/02/20 18:31 19:03 19:03 WBC 15.0 H RBC 4.99 Hgb 11.0 L Hct 35.5 L MCV 71.1 L MCH 22.0 L MCHC 31.0 RDW 18.0 H Plt Count 313 MPV 11.0 Immature Gran % (Auto) 1.0 H Neut % (Auto) 64.9 Lymph % (Auto) 25.6 Swift % (Auto) 5.9 Eos % (Auto) 2.1 Baso % (Auto) 0.5 Lymph # (Auto) 3.8 Swift # (Auto) 0.9 Eos # (Auto) 0.3 Baso # (Auto) 0.1 Abs Immat Gran (auto) 0.15 H Absolute Neuts (auto) 9.7 H Absolute Nucleated RBC 0.000 Nucleated RBC % (auto) 0.0 Smear Tech's Comments VERIFIED PT 13.2 H INR 1.1 Sodium Potassium Chloride Carbon Dioxide Anion Gap BUN Creatinine Estim Creat Clear Calc Estimated GFR POC Glucose 208 H Random Glucose Calcium Total Bilirubin Direct Bilirubin AST ALT Alkaline Phosphatase Troponin I High Sens B-Natriuretic Peptide Total Protein Albumin Triglycerides Cholesterol LDL Cholesterol, Calc HDL Cholesterol COVID-19 ([facility]) COVID-19 Clin Com 09/02/20 09/02/20 09/02/20 19:03 19:03 19:47 WBC RBC Hgb Hct MCV MCH MCHC RDW Plt Count MPV Immature Gran % (Auto) Neut % (Auto) Lymph % (Auto) Swift % (Auto) Eos % (Auto) Baso % (Auto) Lymph # (Auto) Swift # (Auto) Eos # (Auto) Baso # (Auto) Abs Immat Gran (auto) Absolute Neuts (auto) Absolute Nucleated RBC Nucleated RBC % (auto) Smear Tech's Comments PT INR Sodium 137 Potassium 3.3 Chloride 100 Carbon Dioxide 28 Anion Gap 12 BUN 13 Creatinine 0.85 Estim Creat Clear Calc 90.9 Estimated GFR > 60 POC Glucose Random Glucose 202 H Calcium 9.6 Total Bilirubin 0.4 Direct Bilirubin < 0.2 AST 19 ALT 12 Alkaline Phosphatase 82 Troponin I High Sens 91.4 H* B-Natriuretic Peptide 181 H Total Protein 7.3 Albumin 3.9 Triglycerides Cholesterol LDL Cholesterol, Calc HDL Cholesterol COVID-19 (YANN) Negative COVID-19 Clin Com See Note 09/02/20 09/03/20 09/03/20 21:54 07:15 07:15 WBC 15.3 H RBC 4.60 Hgb 10.2 L Hct 32.4 L MCV 70.4 L MCH 22.2 L MCHC 31.5 RDW 18.1 H Plt Count 284 MPV 11.0 Immature Gran % (Auto) 0.5 H Neut % (Auto) 67.2 Lymph % (Auto) 23.6 Swift % (Auto) 6.2 Eos % (Auto) 2.2 Baso % (Auto) 0.3 Lymph # (Auto) 3.6 Swift # (Auto) 1.0 Eos # (Auto) 0.3 Baso # (Auto) 0.1 Abs Immat Gran (auto) 0.07 H Absolute Neuts (auto) 10.3 H Absolute Nucleated RBC 0.000 Nucleated RBC % (auto) 0.0 Smear Tech's Comments PT INR Sodium 138 Potassium 3.1 L Chloride 102 Carbon Dioxide 28 Anion Gap 11 L BUN 11 Creatinine 0.77 Estim Creat Clear Calc 100.3 Estimated GFR > 60 POC Glucose Random Glucose 166 H Calcium 9.0 D Total Bilirubin Direct Bilirubin AST ALT Alkaline Phosphatase Troponin I High Sens 82.2 H* B-Natriuretic Peptide Total Protein Albumin Triglycerides 133 Cholesterol 185 LDL Cholesterol, Calc 125 HDL Cholesterol 34 COVID-19 (YANN) COVID-19 Clin Com 09/03/20 09/03/20 07:25 08:01 WBC RBC Hgb Hct MCV MCH MCHC RDW Plt Count MPV Immature Gran % (Auto) Neut % (Auto) Lymph % (Auto) Swift % (Auto) Eos % (Auto) Baso % (Auto) Lymph # (Auto) Swift # (Auto) Eos # (Auto) Baso # (Auto) Abs Immat Gran (auto) Absolute Neuts (auto) Absolute Nucleated RBC Nucleated RBC % (auto) Smear Tech's Comments PT INR Sodium Potassium Chloride Carbon Dioxide Anion Gap BUN Creatinine Estim Creat Clear Calc Estimated GFR POC Glucose 164 H 193 H Random Glucose Calcium Total Bilirubin Direct Bilirubin AST ALT Alkaline Phosphatase Troponin I High Sens B-Natriuretic Peptide Total Protein Albumin Triglycerides Cholesterol LDL Cholesterol, Calc HDL Cholesterol COVID-19 (YANN) COVID-19 Clin Com Imaging Radiologist's impression: Impressions Head CT 09/03/20 00:04 IMPRESSION: No acute intracranial pathology. Assessment and Plan (1) Hypertensive urgency: Status: Acute Patient admitted with hypertensive urgency with significantly elevated blood pressure with secondary damage an EKG suggestive hypertensive heart disease as well as troponin leak, see below. Patient ran out of her medication 2 weeks ago. Importance about self advocacy was discussed with her. Importance of compliance with medications to reduce the risk of cardiovascular event, cerebrovascular events, renal events as well as premature that were discussed. Given her marked hypertension, there is a possibility of secondary hypertension. Endocrine causes need to be ruled out. Would suggest serum aldosterone, cortisone and metanephrine levels. Also rule out renal artery stenosis especially fibromuscular dysplasia with renal duplex. Also suggest a sleep study given her history of snoring, weight and witnessed apnea with marked hypertension. This can be performed as an outpatient. Meanwhile start on labetalol 100 mg b.i.d., lisinopril 10 mg b.i.d. as well as amlodipine 5 mg daily. Close observation to blood pressure needs to be pursued. Obtain an echocardiogram to assess for LV systolic and diastolic function but more importantly to evaluate for left ventricular hypertrophy. This will be performed later today or tomorrow. Patient needs to be continues to be admitted till we get her blood pressure under better control. Please trend BMP after starting lisinopril therapy. (2) Elevated troponin: Status: Acute Elevated troponin most likely due to subendocardial strain in the setting of hypertensive heart disease with marked hypertension. This is not suggestive of acute myocardial infarction or even acute coronary syndrome. Continue aggressive control blood pressure as above. However end-organ damage in setting of hypertension carries a poor prognosis. Will continue to follow with the patient. Thank you for allowing me to partake in her care Procedures Date of Service Date of Service: 09/03/20
[2020-09-03 11:11] LABS: Glucose, Whole Blood 209 mg/dL (60-115)
[2020-09-03] MEDS: Insulin Lispro 100 UNIT/ML 3 ML VIAL SUBCUT ×3 (11:34→20:43)
--- NOTE | 2020-09-03 12:10 | PM.NEUROCN ---
History of Present Illness Data of Consult Service Date: 09/03/20 Primary Care Provider: Derrek Hollingsworth MD 39 years old woman I was asked to see for right arm pain. She came to hospital with complaints of chest pain and right arm pain. She said that it was happening since yesterday and her whole right side, meaning right shoulder arm and hand were hurting. At the same time she was complaining of pain in neck area and some pain on left side a in the same areas. Pain was moderate. She was also complaining of swelling of her hand and arm. Review of Systems Review of Systems: No recent cold or flu-like illness or trauma per [facility] Past Medical History Medical History Diabetes mellitus HTN (hypertension) Social History Social History Household Members: Children Housing: Apartment Do you presently have visiting nurse or other home services: No Alcohol intake: never Patient Tobacco Use Status: Current someday Tobacco user Tobacco use type: Cigarette Cigarettes Per Day: 3 Smoked in Last 30 Days: Yes e-Cigarette/Vaping Use: Never Used Patient Interested in Nicotine Replacement: No Patient Given Instructions on How to Stop Smoking: No Second Hand Smoke Exposure: No Use of substances other than those prescribed or required for medical reasons: No Currently Displaying Signs/Symptoms of Drug Intoxication Withdrawal: No Any prior treatment program specific to substance use: No Have you been hit, kicked, punched, or otherwise hurt by someone within the past year? If so, by whom?: No Do you feel safe in your current relationship?: Yes Is there a partner from a previous relationship who is making you feel unsafe now?: No Are you made to feel afraid or neglected: No Advance Directives: No Advance Directives Information Provided: Yes Do you have thoughts of harming others: None Recently lost weight without trying: No How much weight loss: Not applicable Eating poorly because of decreased appetite: No Nutrition screen score: 0 Nutrition Risks: No Nutritional Risk Patient : No : No Poor oral hygiene: No Meds Allergies Allergy/AdvReac Type Severity Reaction Status Date / Time latex [Latex] Allergy Unknown RASH Verified 09/03/20 12:12 Active Medications: Current Medications Generic Name Dose Route Start Last Admin Trade Name Freq PRN Reason Stop Dose Admin Acetaminophen 650 mg 09/02/20 23:53 Acetaminophen 325 Mg Tablet PO Q6H PRN Pain, Mild (Pain Scale 1-3) Albuterol Sulfate 2 puff 09/02/20 23:55 Albuterol Sulfate 90 Mcg 8 Gm Inhaler INHALE QID PRN shortness of breath or wheezing Aspirin 81 mg 09/03/20 09:00 09/03/20 09:27 Aspirin Enteric Coated 81 Mg Tablet.Dr PO 81 mg DAILY MESHA Administration Atorvastatin Calcium 80 mg 09/03/20 21:00 Atorvastatin Calcium 80 Mg Tablet PO BEDTIME [facility] Cyclobenzaprine HCl 10 mg 09/02/20 23:55 09/03/20 00:15 Cyclobenzaprine Hcl 10 Mg Tablet PO 10 mg TID PRN Administration muscle spasm Enoxaparin Sodium 40 mg 09/03/20 02:00 09/03/20 04:33 Enoxaparin Sodium 40 Mg/0.4 Ml Syringe SUBCUT 40 mg Q24H [facility] Administration Insulin Human Lispro 0 unit 09/03/20 07:30 09/03/20 11:34 Insulin Lispro 100 Unit/Ml 3 Ml Vial SUBCUT 4 unit QIDACHS [facility] Administration Protocol Labetalol HCl 10 mg 09/03/20 00:08 09/03/20 04:08 Labetalol Hcl 100 Mg/20 Ml Vial IVPUSH 10 mg Q4H PRN Administration BP>180/90 Magnesium Hydroxide 30 ml 09/02/20 23:53 Milk Of Magnesia 30 Ml Oral.Susp PO DAILY PRN Constipation Metoprolol Tartrate 12.5 mg 09/03/20 09:00 09/03/20 09:27 Metoprolol Tartrate 12.5 Mg Halftab PO 12.5 mg BID MESHA Administration Protocol Nitroglycerin 0.4 mg 09/02/20 23:53 Nitroglycerin 0.4 Mg Tab.Subl SUBLINGUAL Q5M PRN Chest Pain Pharmacy Consult 1 each 09/02/20 19:45 Consult Rx Perform Med Rec MISCELLANE ONCE PRN Consult order Sodium Chloride 3 ml 09/03/20 00:00 09/03/20 09:28 0.9 % Sodium Chloride Flush 3 Ml Syringe IVFLUSH 3 ml QSHIFT [facility] Administration Home Medications Medication Instructions Recorded Confirmed Last Taken Type albuterol sulfate 2 inh INHALATION QID PRN 09/02/20 09/02/20 Unknown History Physical Exam Vital Signs: Vital Signs: Last Vital Signs Temp 97.6 F 09/03/20 10:59 Pulse 90 09/03/20 10:59 Resp 18 09/03/20 10:59 BP 170/84 H 09/03/20 10:59 Pulse Ox 97 09/03/20 10:59 Body Mass Index 35.6 On examination muscle mass was intact. Deep tendon reflexes in arms were intact. Strength was intact. There was no obvious tenderness. She was alert awake with normal spontaneity of speech fluency comprehension and affect. Results Labs CBC & Chem 7: 09/03/20 07:15 09/03/20 07:15 Labs: Short CBC 09/02/20 09/03/20 Range/Units 19:03 07:15 WBC 15.0 H 15.3 H (4.8-10.8) X10*3/uL Hgb 11.0 L 10.2 L (12.0-16.0) g/dl Hct 35.5 L 32.4 L (37-47) % Plt Count 313 284 (160-400) X10*3/uL BMP 09/02/20 09/03/20 19:03 07:15 Sodium 137 138 Potassium 3.3 3.1 L Chloride 100 102 Carbon Dioxide 28 28 BUN 13 11 Creatinine 0.85 0.77 Calcium 9.6 9.0 D Liver Function 09/02/20 Range/Units 19:03 Total Bilirubin 0.4 (0.0-1.0) mg/dL Direct Bilirubin < 0.2 (0.0-0.5) mg/dL AST 19 (5-31) U/L ALT 12 (0-31) U/L Alkaline Phosphatase 82 (39-117) U/L Albumin 3.9 (3.5-5.0) g/dL Her noncontrast head CT did not reveal any significant abnormality. Assessment and Plan (1) Right arm pain: Status: Acute Probably musculoskeletal etiology of right arm pain. I recommend neck x-ray and outpatient EMG nerve conduction study. Otherwise inflammatory marker should be checked to rule out underlying collagen vascular condition. Procedures Date of Service Date of Service: 09/03/20
--- NOTE | 2020-09-03 15:14 | MHC.CM.PN ---
CM MET WITH PT WHO REPORTS SHE LIVES WITH HER S/O, DAUGHTER AND TWO GRANDCHILDREN. PT REPORTS SHE HAS A NEBULIZER AT HOME AND NO SERVICES. 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 P-T CONFIRMS HER PCP IS ZORAN PARRA. PT DOES NOT HAVE A HCP AND DECLINES TO COMPLETE ONE TODAY. CURRENT DC PLAN IS HOME WITH NO SERVICES FAMILY TO TRANSPORT
[2020-09-03 15:58] LABS: Glucose, Whole Blood 163 mg/dL (60-115)
--- NOTE | 2020-09-03 16:01 | HO.PM.IMPN ---
Subjective Subjective Date of Service: 09/03/20 Interval History: Seen in f/u for HTN crisis, BP is better Review of Systems Gen: no fever Resp: no sob, no cough CV: no chest, no CESAR, no leg edema GI: No n/v, no abd pain Neuro: No confusion Physical Exam Vital Signs: Vital Signs: Last Vital Signs Temp 98.7 F 09/03/20 15:13 Pulse 94 09/03/20 15:13 Resp 19 09/03/20 15:13 BP 160/80 H 09/03/20 15:13 Pulse Ox 96 09/03/20 15:13 Body Mass Index 35.6 Constitutional Awake and Alert, No apparent distress Neck Supple, No lymphadenopathy Cardiovascular RRR, No M/R/G, S1 S2, No S3 S4, No pedal edema Respiratory Lungs clear, No respiratory distress Gastrointestinal Non tender, Non-distended Skin No rash Neurological Alert & oriented x3 Psychological Appropriate affect Objective Data Current Medications Generic Name Dose Route Start Last Admin Trade Name Freq PRN Reason Stop Dose Admin Acetaminophen 650 mg 09/02/20 23:53 Acetaminophen 325 Mg Tablet PO Q6H PRN Pain, Mild (Pain Scale 1-3) Albuterol Sulfate 2 puff 09/02/20 23:55 Albuterol Sulfate 90 Mcg 8 Gm Inhaler INHALE QID PRN shortness of breath or wheezing Aspirin 81 mg 09/03/20 09:00 09/03/20 09:27 Aspirin Enteric Coated 81 Mg Tablet. PO 81 mg DAILY MESHA Administration Atorvastatin Calcium 80 mg 09/03/20 21:00 Atorvastatin Calcium 80 Mg Tablet PO BEDTIME MESHA Cyclobenzaprine HCl 10 mg 09/02/20 23:55 09/03/20 00:15 Cyclobenzaprine Hcl 10 Mg Tablet PO 10 mg TID PRN Administration muscle spasm Enoxaparin Sodium 40 mg 09/03/20 02:00 09/03/20 04:33 Enoxaparin Sodium 40 Mg/0.4 Ml Syringe SUBCUT 40 mg Q24H MESHA Administration Insulin Human Lispro 0 unit 09/03/20 07:30 09/03/20 11:34 Insulin Lispro 100 Unit/Ml 3 Ml Vial SUBCUT 4 unit QIDACHS [facility] Administration Protocol Labetalol HCl 10 mg 09/03/20 00:08 09/03/20 04:08 Labetalol Hcl 100 Mg/20 Ml Vial IVPUSH 10 mg Q4H PRN Administration BP>180/90 Magnesium Hydroxide 30 ml 09/02/20 23:53 Milk Of Magnesia 30 Ml Oral.Susp PO DAILY PRN Constipation Metoprolol Tartrate 12.5 mg 09/03/20 09:00 09/03/20 09:27 Metoprolol Tartrate 12.5 Mg Halftab PO 12.5 mg BID MESHA Administration Protocol Nitroglycerin 0.4 mg 09/02/20 23:53 Nitroglycerin 0.4 Mg Tab.Subl SUBLINGUAL Q5M PRN Chest Pain Pharmacy Consult 1 each 09/02/20 19:45 Consult Rx Perform Med Rec MISCELLANE ONCE PRN Consult order Sodium Chloride 3 ml 09/03/20 00:00 09/03/20 09:28 0.9 % Sodium Chloride Flush 3 Ml Syringe IVFLUSH 3 ml QSHIFT MESHA Administration Labs CBC & Chem 7: 09/03/20 07:15 09/03/20 07:15 Assessment and Plan (1) Chest pain: Status: Acute Assessment and Plan: 39-year-old female with a past medical history of hypertension, diabetes, arthritis, history of renal calculi presented to the hospital with a chief complaint of chest pain/right arm numbness/tingling. Hypertensive emergency BP was 210/130, d/t non compliance, BP is much better on present meds. Will continue labetalol 100 bid, Lisinopril 10 and Norvasc 5 and will adjust Chest pain/right arm numbness/tingling with slight increase in troponin, likely from elevated BP Diabetes: Insulin sliding scale, restart Metformin. Hypokalemia--PO KCL Leukocytosis--liekly reactive, monitor DVT prophylaxis: Subcu heparin Code status: Full code
[2020-09-03 17:15] LABS: Hemoglobin 10.3 g/dl (12.0-16.0); Mean Corpuscular Volume 70.6 fL (80-98)
[2020-09-03 17:17] LABS: Hematocrit 33.8 % (37-47); Mean Corpuscular HGB Conc 30.5 g/dl (31.0-35.0); Mean Corpuscular Hemoglobin 21.5 pg (27.0-33.0); Mean Platelet Volume 10.8 fL (9.4-12.3); Platelet Count 287 X10*3/uL (160-400); Red Blood Count 4.79 X10*6/uL (4.20-5.50); Red Cell Distribution Width 17.7 % (11.0-16.0); White Blood Count 12.6 X10*3/uL (4.8-10.8)
[2020-09-03 17:18] LABS: PLT ABN DIST 1
[2020-09-03] MEDS: Potassium Chloride ER 20 MEQ TAB.ER.PRT PO (17:37)
[2020-09-03] MEDS: Nitroglycerin 0.4 MG TAB.SUBL SUBLINGUAL (17:43)
[2020-09-03 20:25] LABS: Glucose, Whole Blood 181 mg/dL (60-115)
[2020-09-03] MEDS: Atorvastatin Calcium 80 MG TABLET PO (20:43)
[2020-09-03] MEDS: metFORMIN HCl 500 MG TABLET PO (20:43)
[2020-09-04] VITALS (14 sets, daily range): BP systolic 156–209; BP diastolic 65–112; PULSE 83–99; RESP 16–20; TEMP 36.4–37.1; O2SAT 92–98
[2020-09-04 07:19] LABS: Glucose, Whole Blood 176 mg/dL (60-115)
--- NOTE | 2020-09-04 07:30 | CA_ITS ---
Transthoracic Echocardiogram Patient (Last, First, Middle): Amy Persaud, Gender: Female Date of : 1980 Age: 39 Procedure Date: 09/04/2020 Procedure Type: Transthoracic Echocardiogram Location[place] [facility] [place]: 157.48 cm Weight: 88.45 kg BSA: 1.89 m2 Heart Rate: bpm BP: 186 / 99 mmHg Merchandise Deliverer: Referring MD: Darshan Clancy MD Lab Director: Devang Flores MD Symptoms: chest pain; elevated troponins; [facility] Study Quality: Good ECG Rhythm: Sinus Conclusions: - 1. Normal LV systolic function with moderate left ventricular hypertrophy with grade 2 diastolic dysfunction next 2. Mildly dilated left atrium 3. Mild mitral regurgitation 4. Normal RV systolic pressure 5. No pericardial effusion Findings Left Ventricle Normal left ventricular size and systolic function. There is moderately increased left ventricular wall thickness. The visually estimated ejection fraction is between 55-60%. Spectral Doppler is indicative of a pseudonormal filling pattern. E/E prime ratio is >15, consistent with elevated filling pressures. Evidence suggests grade II (moderate) diastolic dysfunction. Right Ventricle Normal right ventricular cavity size and systolic function. Atria The left atrium is mildly dilated. Interatrial shunt cannot be excluded. The right atrium is normal in size. Aortic Valve Normal aortic valve structure and function. There is no aortic valve stenosis. There is no aortic valve regurgitation. Mitral Valve Normal mitral valve structure and function. There is mild mitral valve regurgitation. There is no mitral valve stenosis. Pulmonic Valve The pulmonic valve was not well visualized. Tricuspid Valve Likely normal tricuspid valve structure and function. There is trace tricuspid valve regurgitation. The right ventricular systolic pressure is normal. The right ventricular systolic pressure is 23 mmHg. Normal right atrial pressure. There is no evidence of pulmonary hypertension. Great Vessels All visible segments of the aorta are normal in size. The pulmonary artery was not well visualized. Venous The inferior vena cava is normal in size and collapses greater than 50% with inspiration. Pericardium/Pleural There is no evidence of pericardial effusion. Prior Study Comparison No prior study available for comparison. Measurements 2D Linear Measurements IVSd: 1.54 0.6-0.9/0.6-1.0 cm LVIDd: 4.79 3.9-5.3/4.2-5.9 cm LVIDd Index: 2.53 2.4-3.2/2.2-3.1 cm/m2 LVIDs: 3.89 2.0-3.6 cm LVPWd: 1.58 0.7-1.1 cm Ao Root: 2.70 2.1-3.5 cm LA Diam: 4.40 2.7-3.8/3.0-4.0 cm LAIDs Index: 2.33 1.5-2.3 cm/m2 LV Mass: 400.41 67-162/88-224 g LV Mass Index: 211.86 43-95/49-115 g/m2 LVOT Diam: 2.00 3.0+(-)1.3 cm Mitral Valve MV VTI: 0.26 MV Pk Leon: 1.19 MV Mn Leon: 0.70 MV Pk Grad: 6.00 MV Mn Grad: 2.00 MV Pk E: 0.90 MV PK A: 0.86 MV Decel Time: 135.00 E/A: 1.00 E'Lateral: 3.37 E'Medial: 4.90 E/E' Med: 18.40 E/E' Lat: 26.70 PHT: 39.00 MVA PHT: 5.64 MVA Continuity: 2.64 Decel [place]: 6.68 Aortic Valve AoV Pk Leon: 1.38 AoV Mn Leon: 0.84 AoV VTI: 0.25 AoV Pk Grad: 8.00 Aov Mn Grad: 4.00 SUSAN Cont.VTI: 2.77 LVOT LVOT Pk Leon: 1.07 LVOT Mn Leon: 0.66 LVOT VTI: 0.22 LVOT Pk Grad: 5.00 LVOT Mn Grad: 2.00 LVOT Diam: 2.00 LVOT Area: 3.14 Diastolic Function MV Pk E: 0.90 MV Pk A: 0.86 E/A: 1.00 E'Medial: 4.90 E/E' Med: 18.40 E' Laterial: 3.37 E/E' Lat: 26.70 Tricuspid Valve TR Pk Leon: 2.23 TR Pk Grad: 20.00 RA Press: 3.00 RVSP: 23.00 Great Vessels Aorta Ao Root-2D: 2.70 2.0-3.7 cm Ao Asc: 3.20 2.1-3.4 cm Pulmonary Valve PV Pk Leon: 0.83 Peak PV Grad: 3.00 Updated in Other Vendor System with Status of Final Devang Flores MD electronically signed on 09/04/2020 12:27:50 PM with status of Final
[2020-09-04] MEDS: Insulin Lispro 100 UNIT/ML 3 ML VIAL SUBCUT ×4 (07:38→21:40)
[2020-09-04] MEDS: Metoprolol Tartrate 12.5 MG HALFTAB PO (07:39)
[2020-09-04] MEDS: metFORMIN HCl 500 MG TABLET PO ×2 (07:39→21:39)
[2020-09-04] MEDS: Aspirin Enteric Coated 81 MG TABLET.DR PO (07:40)
[2020-09-04] MEDS: 0.9 % Sodium Chloride Flush 3 ML SYRINGE IVFLUSH ×3 (07:40→21:40)
[2020-09-04 11:22] LABS: Glucose, Whole Blood 179 mg/dL (60-115)
[2020-09-04] MEDS: amLODIPine Besylate 5 MG TABLET PO (12:12)
[2020-09-04] MEDS: lisinopriL 10 MG TABLET PO (12:12)
[2020-09-04] MEDS: Labetalol HCL 100 MG TABLET PO ×2 (12:13→21:39)
--- NOTE | 2020-09-04 12:48 | PM.PNCARD ---
Subjective Subjective Date of Service: 09/04/20 Principal diagnosis: Hypertensive urgency Interval history: Patient seen at bedside. No new cardiac symptoms at current time. Blood pressure remains significantly elevated. None of the medications were started yesterday. Echocardiogram shows normal LV systolic function with grade 2 diastolic dysfunction. Review of Systems Constitutional: Reports no additional constitutional complaints Cardiovascular: Reports no additional cardiovascular complaints Gastrointestinal: Reports no additional gastrointestinal complaints Reports system reviewed and no additional complaints, except as documented Psychiatric: Reports no additional psychiatric complaints Physical Exam Vital Signs: Last Vital Signs Temp 97.8 F 09/04/20 11:41 Pulse 83 09/04/20 12:13 Resp 18 09/04/20 11:41 BP 184/110 H 09/04/20 12:13 Pulse Ox 98 09/04/20 11:41 Body Mass Index 35.6 Const General: cooperative, comfortable, no acute distress, alert and awake Nutritional Appearance: obese Orientation/consciousness: patient oriented x3 Neck Neck: Yes trachea midline, Yes supple and Yes no JVD Resp Effort & Inspection: normal respiratory effort Auscultation: clear to auscultation bilaterally Cardio Jugular venous distension: no JVD Palpation: normal PMI Rate: regular rate Rhythm: regular rhythm Heart sounds: S1 normal heart sound present and S2 normal heart sound present Skin General skin exam: no rashes or lesions noted Neuro General: patient oriented x3 and no focal motor deficits Extrem General: Yes no clubbing, cyanosis or edema Results Labs and Meds Result diagrams: 09/03/20 16:40 09/03/20 07:15 Lab results: Laboratory Results - last 24 hr 09/03/20 09/03/20 09/03/20 15:51 16:40 20:16 WBC 12.6 H RBC 4.79 Hgb 10.3 L Hct 33.8 L MCV 70.6 L MCH 21.5 L MCHC 30.5 L RDW 17.7 H Plt Count 287 MPV 10.8 Absolute Nucleated RBC 0.000 Nucleated RBC % (auto) 0.0 POC Glucose 163 H 181 H 09/04/20 09/04/20 07:02 11:16 WBC RBC Hgb Hct MCV MCH MCHC RDW Plt Count MPV Absolute Nucleated RBC Nucleated RBC % (auto) POC Glucose 176 H 179 H Imaging Radiologist's impression: Impressions Cervical Spine CT 09/03/20 07:56 IMPRESSION: Mild degenerative spondylosis at C4-C5 and C5-C6. Otherwise unremarkable exam. Progress Note: A&P Assessment and plan (1) HTN (hypertension): Status: Acute Assessment and Plan: Hypertension remains uncontrolled. Start medications as recommended yesterday. Renal ultrasound needs to be performed. Endocrine causes needs to be ruled out. Will need outpatient sleep study to evaluate for obstructive sleep apnea. Importance of aggressive blood pressure was (2) Hypertensive heart disease: Status: Acute Assessment and Plan: Discussed with patient again. She understands and agrees. Abnormal EKG related to hypertensive heart disease with moderate LVH. This carries poor prognosis in the long run. Aggressive control blood pressure is above. Will continue to follow with the patient. Fall Risk Details Current Medications: Current Medications Generic Name Dose Route Start Last Admin Trade Name Freq PRN Reason Stop Dose Admin Acetaminophen 650 mg 09/02/20 23:53 Acetaminophen 325 Mg Tablet PO Q6H PRN Pain, Mild (Pain Scale 1-3) Albuterol Sulfate 2 puff 09/02/20 23:55 Albuterol Sulfate 90 Mcg 8 Gm Inhaler INHALE QID PRN shortness of breath or wheezing Amlodipine Besylate 5 mg 09/04/20 11:55 09/04/20 12:12 Amlodipine Besylate 5 Mg Tablet PO 5 mg DAILY MESHA Administration Protocol Aspirin 81 mg 09/03/20 09:00 09/04/20 07:40 Aspirin Enteric Coated 81 Mg Tablet. PO 81 mg DAILY MESHA Administration Atorvastatin Calcium 80 mg 09/03/20 21:00 09/03/20 20:43 Atorvastatin Calcium 80 Mg Tablet PO 80 mg BEDTIME MESHA Administration Cyclobenzaprine HCl 10 mg 09/02/20 23:55 09/03/20 00:15 Cyclobenzaprine Hcl 10 Mg Tablet PO 10 mg TID PRN Administration muscle spasm Enoxaparin Sodium 40 mg 09/03/20 02:00 09/03/20 23:24 Enoxaparin Sodium 40 Mg/0.4 Ml Syringe SUBCUT Not Given Q24H [facility] Insulin Human Lispro 0 unit 09/03/20 07:30 09/04/20 11:35 Insulin Lispro 100 Unit/Ml 3 Ml Vial SUBCUT 2 unit QIDACHS [facility] Administration Protocol Labetalol HCl 10 mg 09/03/20 00:08 09/03/20 04:08 Labetalol Hcl 100 Mg/20 Ml Vial IVPUSH 10 mg Q4H PRN Administration BP>180/90 Labetalol HCl 100 mg 09/04/20 11:55 09/04/20 12:13 Labetalol Hcl 100 Mg Tablet PO 100 mg BID MESHA Administration Protocol Lisinopril 10 mg 09/04/20 11:55 09/04/20 12:12 Lisinopril 10 Mg Tablet PO 10 mg DAILY MESHA Administration Protocol Magnesium Hydroxide 30 ml 09/02/20 23:53 Milk Of Magnesia 30 Ml Oral.Susp PO DAILY PRN Constipation Metformin HCl 500 mg 09/03/20 21:00 09/04/20 07:39 Metformin Hcl 500 Mg Tablet PO 500 mg BID MESHA Administration Nitroglycerin 0.4 mg 09/02/20 23:53 09/03/20 17:43 Nitroglycerin 0.4 Mg Tab.Subl SUBLINGUAL 0.4 mg Q5M PRN Administration Chest Pain Pharmacy Consult 1 each 09/02/20 19:45 Consult Rx Perform Med Rec MISCELLANE ONCE PRN Consult order Sodium Chloride 3 ml 09/03/20 00:00 09/04/20 07:40 0.9 % Sodium Chloride Flush 3 Ml Syringe IVFLUSH 3 ml QSHIFT MESHA Administration Time Spent With Patient Time: Total time spent is greater than 50% in coordination of care (as documented) at patient's floor/unit and/or counseling patient: Time with patient: 15 - 24 minutes Procedures Date of Service Date of Service: 09/04/20
[2020-09-04] MEDS: Labetalol HCL 100 MG/20 ML VIAL 10 MG IVPUSH (14:51)
[2020-09-04 16:38] LABS: Glucose, Whole Blood 178 mg/dL (60-115)
--- NOTE | 2020-09-04 16:57 | P.PNIM_ITS ---
Subjective Subjective Date of Service: 09/04/20 Interval History: Seen in f/u for HTN crisis, BP remains high Review of Systems Gen: no fever Resp: no sob, no cough CV: no chest, no CESAR, no leg edema GI: No n/v, no abd pain Neuro: No confusion Physical Exam Vital Signs: Vital Signs: Last Vital Signs Temp 97.7 F 09/04/20 15:07 Pulse 86 09/04/20 15:07 Resp 19 09/04/20 15:07 BP 175/86 H 09/04/20 15:07 Pulse Ox 98 09/04/20 15:07 Body Mass Index 35.6 Const: General: cooperative, comfortable, no acute distress, alert, awake, anxious, Cushingoid facies and tired appearing Nutritional Appearance: obese Orientation/consciousness: patient oriented x3 Limitations: no limitations HENMT: Head: Yes normocephalic and Yes atraumatic Neck: Neck: Yes trachea midline, Yes supple and Yes no JVD Resp: Effort & Inspection: normal respiratory effort Auscultation: clear to auscultation bilaterally Cardio: Jugular venous distension: no JVD Palpation: normal PMI Rate: regular rate Rhythm: regular rhythm Heart sounds: S1 normal heart sound present, S2 normal heart sound present and Other heart sounds present (S4 present) GI: Inspection: Yes obesity Auscultation: Hypoactive bowel sounds present Skin: General skin exam: no rashes or lesions noted Neuro: General: patient oriented x3 and no focal motor deficits Extrem: General: Yes no clubbing, cyanosis or edema Psych: Appearance: grossly normal Affect: Anxious affect present Objective Data Current Medications Generic Name Dose Route Start Last Admin Trade Name Dennis PRN Reason Stop Dose Admin Acetaminophen 650 mg 09/02/20 23:53 Acetaminophen 325 Mg Tablet PO Q6H PRN Pain, Mild (Pain Scale 1-3) Albuterol Sulfate 2 puff 09/02/20 23:55 Albuterol Sulfate 90 Mcg 8 Gm Inhaler INHALE QID PRN shortness of breath or wheezing Amlodipine Besylate 5 mg 09/04/20 11:55 09/04/20 12:12 Amlodipine Besylate 5 Mg Tablet PO 5 mg DAILY MESHA Administration Protocol Aspirin 81 mg 09/03/20 09:00 09/04/20 07:40 Aspirin Enteric Coated 81 Mg Tablet. PO 81 mg DAILY MESHA Administration Atorvastatin Calcium 80 mg 09/03/20 21:00 09/03/20 20:43 Atorvastatin Calcium 80 Mg Tablet PO 80 mg BEDTIME MESHA Administration Cyclobenzaprine HCl 10 mg 09/02/20 23:55 09/03/20 00:15 Cyclobenzaprine Hcl 10 Mg Tablet PO 10 mg TID PRN Administration muscle spasm Enoxaparin Sodium 40 mg 09/03/20 02:00 09/03/20 23:24 Enoxaparin Sodium 40 Mg/0.4 Ml Syringe SUBCUT Not Given Q24H [facility] Insulin Human Lispro 0 unit 09/03/20 07:30 09/04/20 16:54 Insulin Lispro 100 Unit/Ml 3 Ml Vial SUBCUT 2 unit QIDACHS [facility] Administration Protocol Labetalol HCl 10 mg 09/03/20 00:08 09/04/20 14:51 Labetalol Hcl 100 Mg/20 Ml Vial IVPUSH 10 mg Q4H PRN Administration BP>180/90 Labetalol HCl 100 mg 09/04/20 11:55 09/04/20 12:13 Labetalol Hcl 100 Mg Tablet PO 100 mg BID [facility] Administration Protocol Lisinopril 10 mg 09/04/20 11:55 09/04/20 12:12 Lisinopril 10 Mg Tablet PO 10 mg DAILY [facility] Administration Protocol Magnesium Hydroxide 30 ml 09/02/20 23:53 Milk Of Magnesia 30 Ml Oral.Susp PO DAILY PRN Constipation Metformin HCl 500 mg 09/03/20 21:00 09/04/20 07:39 Metformin Hcl 500 Mg Tablet PO 500 mg BID [facility] Administration Nitroglycerin 0.4 mg 09/02/20 23:53 09/03/20 17:43 Nitroglycerin 0.4 Mg Tab.Subl SUBLINGUAL 0.4 mg Q5M PRN Administration Chest Pain Pharmacy Consult 1 each 09/02/20 19:45 Consult Rx Perform Med Rec MISCELLANE ONCE PRN Consult order Sodium Chloride 3 ml 09/03/20 00:00 09/04/20 14:52 0.9 % Sodium Chloride Flush 3 Ml Syringe IVFLUSH 3 ml QSHIFT [facility] Administration Labs CBC & Chem 7: 09/03/20 16:40 09/03/20 07:15 Assessment and Plan (1) Chest pain: Status: Acute Assessment and Plan: 39-year-old female with a past medical history of hypertension, diabetes, arth ritis, history of renal calculi presented to the hospital with a chief complaint of chest pain/right arm numbness/tingling. Hypertensive emergency BP was 210/130, d/t non compliance, BP is better on present meds but Will continue labetalol 100 bid, Lisinopril 10 and Norvasc 5 and will adjust , hydralazine Chest pain/right arm numbness/tingling with slight increase in troponin, likely from elevated BP Diabetes: Insulin sliding scale, continue Metformin. Hypokalemia--PO KCL Leukocytosis--liekly reactive, monitor DVT prophylaxis: Subcu heparin Code status: Full code
[2020-09-04] MEDS: hydrALAZINE HCl 25 MG TABLET PO ×2 (17:52→21:39)
[2020-09-04 18:31] LABS: Anion Gap 12 (12-20); Blood Urea Nitrogen 12 mg/dL (9-16); Carbon Dioxide 27 mmol/L (22-29); Chloride 102 mmol/L (96-108); Creatinine Clr Calc Pharmacy 101.6; Estimated Glomerular Filt Rate > 60; Glucose Random 199 mg/dL (60-115); Potassium 3.6 mmol/L (3.3-5.1); Sodium 137 mmol/L (135-145)
[2020-09-04 20:53] LABS: Glucose, Whole Blood 278 mg/dL (60-115)
[2020-09-04] MEDS: Atorvastatin Calcium 80 MG TABLET PO (21:40)
[2020-09-05 03:20] VITALS: BP 145/68; PULSE 95; RESP 18; TEMP 37.1; O2SAT 98
[2020-09-05 07:17] LABS: Glucose, Whole Blood 167 mg/dL (60-115)
[2020-09-05 07:19] VITALS: BP 147/71; PULSE 87; RESP 18; TEMP 36.9; O2SAT 99
[2020-09-05] MEDS: metFORMIN HCl 500 MG TABLET PO (08:38)
[2020-09-05 08:39] VITALS: BP 147/71; PULSE 87
[2020-09-05] MEDS: Labetalol HCL 100 MG TABLET PO (08:39)
[2020-09-05] MEDS: lisinopriL 10 MG TABLET PO ×2 (08:39→13:24)
[2020-09-05] MEDS: 0.9 % Sodium Chloride Flush 3 ML SYRINGE IVFLUSH (08:39)
[2020-09-05] MEDS: amLODIPine Besylate 5 MG TABLET PO (08:39)
[2020-09-05] MEDS: Aspirin Enteric Coated 81 MG TABLET.DR PO (08:39)
[2020-09-05 11:20] LABS: Glucose, Whole Blood 141 mg/dL (60-115)
[2020-09-05 11:23] VITALS: BP 166/86; PULSE 77; RESP 20; TEMP 36.6; O2SAT 97
--- NOTE | 2020-09-05 11:45 | P.PNCA_ITS ---
Subjective Subjective Date of Service: 09/05/20 Principal diagnosis: Hypertensive urgency Interval history: Patient currently not having any cardiac symptoms. Blood pressure is better controlled. Renal duplex was done is pending. Review of Systems Constitutional: Reports no additional constitutional complaints Cardiovascular: Reports no additional cardiovascular complaints Respiratory: Reports no additional respiratory complaints Gastrointestinal: Reports no additional gastrointestinal complaints Genitourinary: Reports no additional female genitourinary complaints Reports system reviewed and no additional complaints, except as documented Psychiatric: Reports no additional psychiatric complaints Physical Exam Vital Signs: Last Vital Signs Temp 97.9 F 09/05/20 11:23 Pulse 77 09/05/20 11:23 Resp 20 09/05/20 11:23 BP 166/86 H 09/05/20 11:23 Pulse Ox 97 09/05/20 11:23 Body Mass Index 35.6 Const General: cooperative, no acute distress, alert and awake Nutritional Appearance: obese Orientation/consciousness: patient oriented x3 Neck Neck: Yes trachea midline, Yes supple and Yes no JVD Resp Effort & Inspection: normal respiratory effort Auscultation: clear to auscultation bilaterally Cardio Jugular venous distension: no JVD Palpation: normal PMI Rate: regular rate Rhythm: regular rhythm Heart sounds: S1 normal heart sound present, S2 normal heart sound present and Other heart sounds present (S4 present) Neuro General: patient oriented x3 and no focal motor deficits Extrem General: Yes no clubbing, cyanosis or edema Psych Appearance: grossly normal Results Labs and Meds Result diagrams: 09/03/20 16:40 09/04/20 17:51 Lab results: Laboratory Results - last 24 hr 09/04/20 09/04/20 09/04/20 16:33 17:51 20:41 Sodium 137 Potassium 3.6 Chloride 102 Carbon Dioxide 27 Anion Gap 12 BUN 12 Creatinine 0.76 Estim Creat Clear Calc 101.6 Estimated GFR > 60 POC Glucose 178 H 278 H Random Glucose 199 H Calcium 9.0 09/05/20 09/05/20 07:06 11:07 Sodium Potassium Chloride Carbon Dioxide Anion Gap BUN Creatinine Estim Creat Clear Calc Estimated GFR POC Glucose 167 H 141 H Random Glucose Calcium Progress Note: A&P Assessment and plan (1) Hypertensive heart disease: Status: Acute Assessment and Plan: Hypertensive heart disease with moderate LVH without heart failure. Patient present with myocardial strain symptoms with elevated troponin which is also related to LV strain from hypertensive urgency. Had a very detailed discussion with her about importance of blood pressure control to avoid future progressive end-organ damage including left ventricular hypertrophy and heart failure syndrome. Importance of good control of blood pressure was discussed. She will require a stress test which can be done as outpatient to rule out obstructive C AD, although less likely. Workup for secondary hypertension with sleep study as well as endocrine workup should be pursued. Renal duplex is pending. Send her home on this medical regimen at this point time and will further up titrated as outpatient. Advised to monitor blood pressure at home. Low-salt diet was discussed. Importance of compliance with follow-up was discussed in a presents for was present during the entire visit with her today. Fall Risk Details Current Medications: Current Medications Generic Name Dose Route Start Last Admin Trade Name Freq PRN Reason Stop Dose Admin Acetaminophen 650 mg 09/02/20 23:53 Acetaminophen 325 Mg Tablet PO Q6H PRN Pain, Mild (Pain Scale 1-3) Albuterol Sulfate 2 puff 09/02/20 23:55 Albuterol Sulfate 90 Mcg 8 Gm Inhaler INHALE QID PRN shortness of breath or wheezing Amlodipine Besylate 5 mg 09/04/20 11:55 09/05/20 08:39 Amlodipine Besylate 5 Mg Tablet PO 5 mg DAILY MESHA Administration Protocol Aspirin 81 mg 09/03/20 09:00 09/05/20 08:39 Aspirin Enteric Coated 81 Mg Tablet. PO 81 mg DAILY MESHA Administration Atorvastatin Calcium 80 mg 09/03/20 21:00 09/04/20 21:40 Atorvastatin Calcium 80 Mg Tablet PO 80 mg BEDTIME MESHA Administration Cyclobenzaprine HCl 10 mg 09/02/20 23:55 09/03/20 00:15 Cyclobenzaprine Hcl 10 Mg Tablet PO 10 mg TID PRN Administration muscle spasm Enoxaparin Sodium 40 mg 09/03/20 02:00 09/05/20 01:13 Enoxaparin Sodium 40 Mg/0.4 Ml Syringe SUBCUT Not Given Q24H [facility] Hydralazine HCl 25 mg 09/04/20 17:30 09/05/20 08:47 Hydralazine Hcl 25 Mg Tablet PO Not Given TID [facility] Protocol Insulin Human Lispro 0 unit 09/03/20 07:30 09/05/20 08:37 Insulin Lispro 100 Unit/Ml 3 Ml Vial SUBCUT Not Given QIDACHS [facility] Protocol Labetalol HCl 10 mg 09/03/20 00:08 09/04/20 14:51 Labetalol Hcl 100 Mg/20 Ml Vial IVPUSH 10 mg Q4H PRN Administration BP>180/90 Labetalol HCl 100 mg 09/04/20 11:55 09/05/20 08:39 Labetalol Hcl 100 Mg Tablet PO 100 mg BID [facility] Administration Protocol Lisinopril 10 mg 09/04/20 11:55 09/05/20 08:39 Lisinopril 10 Mg Tablet PO 10 mg DAILY [facility] Administration Protocol Magnesium Hydroxide 30 ml 09/02/20 23:53 Milk Of Magnesia 30 Ml Oral.Susp PO DAILY PRN Constipation Metformin HCl 500 mg 09/03/20 21:00 09/05/20 08:38 Metformin Hcl 500 Mg Tablet PO 500 mg BID MESHA Administration Nitroglycerin 0.4 mg 09/02/20 23:53 09/03/20 17:43 Nitroglycerin 0.4 Mg Tab.Subl SUBLINGUAL 0.4 mg Q5M PRN Administration Chest Pain Pharmacy Consult 1 each 09/02/20 19:45 Consult Rx Perform Med Rec MISCELLANE ONCE PRN Consult order Sodium Chloride 3 ml 09/03/20 00:00 09/05/20 08:39 0.9 % Sodium Chloride Flush 3 Ml Syringe IVFLUSH 3 ml QSHIFT [facility] Administration Time Spent With Patient Time: Total time spent is greater than 50% in coordination of care (as documented) at patient's floor/unit and/or counseling patient: Time with patient: 15 - 24 minutes Procedures Date of Service Date of Service: 09/05/20
--- NOTE | 2020-09-05 12:28 | P.DS_ITS ---
DS: Providers Provider Date of Service: 09/05/20 Date of admission: 09/02/20 23:53 Primary care physician: Derrek Hollingsworth MD Consults: 09/03/20 04:21 Consult to Neurology Routine Consulting Provider: [facility] Reason for consultation: RUE numbness/tingling 09/03/20 06:36 Consult to Cardiology Routine Consulting Provider: Devang Flores Reason for consultation: troponin elevated; chest pain; HTN emergency DS: Diagnosis Discharge Diagnosis (1) Hypertensive heart disease: Status: Acute DS: Medications Discharge Medications Home Medications: Home Medications Medication Instructions Recorded Confirmed albuterol sulfate 2 inh INHALATION QID PRN 09/02/20 09/02/20 Previous Rx's Medication Instructions Recorded cyclobenzaprine 10 mg PO TID PRN #10 tab 04/28/20 ibuprofen 800 mg PO Q8H PRN #14 tab 04/28/20 lisinopril 40 mg tablet 40 mg PO DAILY #30 tab 07/20/20 metformin 500 mg tablet 500 mg PO BID #180 tab 07/20/20 DS: Summary Hospital Course Hospital Course: Chief Complaint: Chest pain 39-year-old female with a past medical history of hypertension, diabetes, history of renal stones, arthritis presented to the hospital with a chief complaint of chest pressure/right arm pain/numbness/tingling. Denies any associated nausea vomiting. Denies any lightheadedness or dizziness. Patient reports that she has not been taking her blood pressure medications as she ran out of them for the past 2 weeks. Denies any headaches or blurry visions. Denies any focal weakness. Denies GI or symptoms. Review of all other systems is negative except mentioned above ER course: Per ER team patient blood pressure on the presentation noted to be 232/127. CT head pending. Exam nonfocal. EKG showed [address] elevations in V1 V2 V3, nonspecific T-wave inversions; ER team spoke to Dr. Flores from Cardiology-report ed that EKG findings are not concerning for STEMI, suggested to treat hypertensive emergency. Patient was given nitro paste and labetalol in the ER with mild improvement in the blood pressure. Also given aspirin. ER team mentioned that the follow-up EKG after half an hour did not show any dynamic changes. Admitted for further management. Hospital course: Patient presented Hypertensive emergency BP was 210/130, she is supposed to be on lisinopril follow mg does prescribe in April but she never picked up the prescription and was not taking any medication and hence her very high blood pressure. Her troponin I was slightly elevated but not significantly in the range of a non ST elevation myocardial infarction. Patient blood pressure was aggressively treated and has been lowered to a safe level. Presently she is on labetalol 100 bid, Lisinopril 10 and Norvasc 5. She has been seen by Dr. Flores from cardiology she had renal US that does not show definitive renal artery stenosis and might angiogram on outpatient basis for further investigation. The importance of taken her medications as prescribed has been stressed to her to avoid complication such as stroke, renal disease, cardiovascular disease. her echo showed 1. Normal LV systolic function with moderate left ventricular hypertrophy with grade 2 diastolic dysfunction next 2. Mildly dilated left atrium 3. Mild mitral regurgitation 4. Normal RV systolic pressure 5. No pericardial effusion Chest pain/right arm numbness/tingling with slight increase in troponin, likely from elevated BP--this has resolved, troponin was not significantly just 91 and went down to 82 Diabetes: Insulin sliding scale, continue Metformin, she meds at home. No meter or lancets KALLIE, Dr. Flores will arrange outpatient sleep study Time Spent with Patient Time attestation: Total time spent providing and/or coordinating discharge services: Discharge coordination time: Greater than 30 minutes Quality: Stroke Does the patient have a stroke diagnosis?: No Physical Exam Vital Signs: Vital Signs: Last Vital Signs Temp 97.9 F 09/05/20 11:23 Pulse 77 09/05/20 11:23 Resp 20 09/05/20 11:23 BP 166/86 H 09/05/20 11:23 Pulse Ox 97 09/05/20 11:23 Body Mass Index 35.6 Constitutional Awake and Alert, No apparent distress Neck Supple, No lymphadenopathy Cardiovascular RRR, No M/R/G, S1 S2, No S3 S4, No pedal edema Respiratory Lungs clear, No respiratory distress Gastrointestinal Non tender, Non-distended Skin No rash Neurological Alert & oriented x3 Psychological Appropriate affect DS: Data Data Completed and Pending Labs on day of discharge: Laboratory Results - last 24 hr 09/04/20 09/04/20 09/04/20 16:33 17:51 20:41 Sodium 137 Potassium 3.6 Chloride 102 Carbon Dioxide 27 Anion Gap 12 BUN 12 Creatinine 0.76 Estim Creat Clear Calc 101.6 Estimated GFR > 60 POC Glucose 178 H 278 H Random Glucose 199 H Calcium 9.0 09/05/20 09/05/20 07:06 11:07 Sodium Potassium Chloride Carbon Dioxide Anion Gap BUN Creatinine Estim Creat Clear Calc Estimated GFR POC Glucose 167 H 141 H Random Glucose Calcium Discharge Plan Discharge Anticipated Discharge Date/Time: 09/05/20 12:17 Patient Disposition: Home, Self-Care Discharge Diagnosis: Hypertension urgency Referrals: Derrek Hollingsworth MD [Primary Care Provider] - 1 Week Discharge Medications: New atorvastatin 80 mg Tablet 80 mg PO BEDTIME Qty: 30 RF: 0 amlodipine 5 mg Tablet 5 mg PO DAILY Qty: 30 RF: 0 lisinopril 10 mg Tablet 10 mg PO DAILY Qty: 30 RF: 0 labetalol 100 mg Tablet 100 mg PO BID Qty: 60 RF: 0 aspirin 81 mg Tablet,Delayed Release (Dr/Ec) 81 mg PO DAILY Qty: 81 RF: 0 (DME) blood-glucose meter [FreeStyle [place]] Kit See Rx Instructions .ROUTE .MEDSUPPLY Qty: 1 RF: 0 (DME) lancets [FreeStyle Lancets] 28 gauge misc See Rx Instructions .ROUTE .MEDSUPPLY Qty: 100 RF: 0 (DME) lancets 18 gauge misc See Rx Instructions .ROUTE .MEDSUPPLY Qty: 100 RF: 0 oxycodone 5 mg capsule 5 mg PO Q8H PRN (Reason: pain (scale score 7-10)) Qty: 7 RF: 0 Continued cyclobenzaprine 10 mg tablet 10 mg PO TID PRN (Reason: muscle spasm) Qty: 10 RF: 0 albuterol sulfate 90 mcg/actuation HFA aerosol inhaler 2 inh inhalation QID PRN (Reason: shortness of breath or wheezing) RF: 0 metformin 500 mg tablet 500 mg PO BID Qty: 180 RF: 8 Discontinued ibuprofen 800 mg tablet 800 mg PO Q8H PRN (Reason: pain) Qty: 14 RF: 0 lisinopril 40 mg tablet 40 mg PO DAILY Qty: 30 RF: 0 Discharge Orders: Discharge Order (Routine); Ordered 09/05/20 Ordered By: Kike Bryson Diet: advance to usual diet and diabetic diet Activity on Discharge: As tolerated Stand Alone Forms: Patient Portal Discharge page, Work/School Release Print Language: Croatian Care Plan Goals: Prevent rehospitalization, and controll of blood pressure Health Concerns: Uncontrolled blood pressure Plan of Treatment: Take your medication as directed and follow up with your Doctor in a week, call for appointment Follow up with Dr. Flores and to be set up for sleep study Assessment: See above Discharge Date/Time: 09/05/20 15:11
--- NOTE | 2020-09-05 12:43 | MHC.CM.PN ---
pt cleared to DC home today with no services
[2020-09-05 13:24] VITALS: BP 166/86; PULSE 76
== END 2020-09-05 15:11 | disposition home or self-care (01) | DRG 199 ==
LOC: HO.ED 23:54 → HO.EDOVER 09-03 01:15 → HO.IMC 09-03 05:52
PROVIDERS: Admitting Provider Hospitalist; Emergency Provider Emergency Medicine; PCP Internal Medicine; Visit Provider Internal Medicine
DX: I16.0 Hypertensive urgency (principal); D72.829 Elevated white blood cell count, unspecified; E11.9 Type 2 diabetes mellitus without complications; F17.200 Nicotine dependence, unspecified, uncomplicated; E87.6 Hypokalemia; I10 Essential (primary) hypertension; M19.90 Unspecified osteoarthritis, unspecified site; Z71.6 Tobacco abuse counseling; Z91.14 Patient's other noncompliance with medication regimen; Z20.822 Contact with and (suspected) exposure to COVID-19; Z79.82 Long term (current) use of aspirin; Z79.84 Long term (current) use of oral hypoglycemic drugs; Z79.891 Long term (current) use of opiate analgesic; Z79.899 Other long term (current) drug therapy
CPT/HCPCS: 36415; 70450; 72125; 76775; 80048; 80061; 80076; 82947; 83880; 84484; 85025; 85027; 85610; 87635; 93005; 93306; 93975; 99219; 99285; J1650

== ENCOUNTER 2020-12-02 09:12 | Outpatient (REF) | payer OTHER, SELFPAY | END 2020-12-02 09:13 | disposition home or self-care (01) | LOC: HO.LAB 09:12 | PROVIDERS: PCP Internal Medicine; Visit Provider Internal Medicine | DX: Z20.822 Contact with and (suspected) exposure to COVID-19 (principal) | CPT/HCPCS: C9803; U0003; U0005 ==

== ENCOUNTER 2020-12-21 15:38 | Emergency (ER) | payer OTHER, SELFPAY ==
[2020-12-21 16:44] VITALS: BP 212/128; PULSE 88; RESP 18; TEMP 36.6; O2SAT 100; BMI 35.6
[2020-12-21 17:14] LABS: IDNOW Serial# 9DD0AD1C
[2020-12-21 17:18] LABS: COVID-19 Test Positive (Negative)
[2020-12-21 18:00] VITALS: BP 226/121
--- NOTE | 2020-12-21 18:03 | ED_ITS ---
HPI - General Adult General Chief complaint: General Medical Stated complaint: body aches cough loss of taste Time Seen by Provider: 12/21/20 18:03 Source: patient Mode of arrival: ambulatory Limitations: no limitations History of Present Illness HPI narrative: Patient with cough, myalgias, headache and diarrhea for 3 days. Presents for COVID evaluation Onset (ago): day(s) Severity: mild Pain Consistency: constant Associated symptoms: fever/chills, nausea/vomiting and weakness Related Data Home Medications Medication Instructions Recorded Confirmed albuterol sulfate 90 mcg/actuation 2 inh INHALATION QID PRN 09/02/20 10/30/20 aerosol inhaler blood sugar diagnostic (FreeStyle #10 ea 09/10/20 10/30/20 Lite Strips) Previous Rx's Medication Instructions Recorded cyclobenzaprine 10 mg tablet 10 mg PO TID PRN #10 tab 04/28/20 metformin 500 mg tablet 500 mg PO BID #180 tab 07/20/20 aspirin 81 mg tablet,delayed 81 mg PO DAILY #81 tab 09/05/20 release blood-glucose meter (FreeStyle #1 ea 09/05/20 [place]) lancets 18 gauge #100 ea 09/05/20 lancets 28 gauge (FreeStyle #100 ea 09/05/20 Lancets) oxycodone 5 mg capsule 5 mg PO Q8H PRN #7 cap 09/05/20 amlodipine 5 mg tablet 5 mg PO DAILY #30 tab 09/10/20 atorvastatin 80 mg tablet 80 mg PO BEDTIME #30 tab 09/10/20 hydroxyzine HCl 25 mg tablet 25 mg PO BID PRN #90 tab 09/10/20 labetalol 100 mg tablet 100 mg PO BID #60 tab 09/10/20 lisinopril 10 mg tablet 10 mg PO DAILY #30 tab 09/10/20 cephalexin 250 mg capsule 250 mg PO Q6H #20 cap 10/30/20 naproxen 500 mg tablet (Naprosyn) 500 mg PO BID #20 tab 12/21/20 Allergies Allergy/AdvReac Type Severity Reaction Status Date / Time latex [Latex] Allergy Unknown RASH Verified 10/30/20 11:01 Review of Systems Constitutional: Constitutional: Reports no additional constitutional complaints Eyes: Eyes: Reports no additional eye complaints ENT: Denies dizziness Cardiovascular: Cardiovascular: Reports no additional cardiovascular complaints Respiratory: Respiratory: Reports as per HPI Gastrointestinal: Gastrointestinal: Reports no additional gastrointestinal complaints Genitourinary: Genitourinary: Reports no additional female genitourinary complaints Musculoskeletal: Musculoskeletal: Reports no additional musculoskeletal complaints Integumentary/Breasts: Skin/Breast: Denies rash Neurologic: Reports system reviewed and no additional complaints, except as documented, Denies dizziness and Denies Sensory deficit (Neuro) Psychiatric: Psychiatric: Denies anxiety [facility] Past Medical History Medical History Diabetes mellitus HTN (hypertension) Obesity Social History Social History Household Members: Children Housing: Apartment Do you presently have visiting nurse or other home services: No Alcohol intake: never Patient Tobacco Use Status: Current someday Tobacco user Tobacco use type: Cigarette Cigarettes Per Day: 3 e-Cigarette/Vaping Use: Never Used Second Hand Smoke Exposure: No Advance Directives: No Advance Directives Information Provided: No Patient : No service: No Current occupational status: employed Physical Exam Vital Signs: Vital Signs: Last Vital Signs Temp 98 F 12/21/20 16:44 Pulse 88 12/21/20 16:44 Resp 18 12/21/20 16:44 BP 212/128 H 12/21/20 16:44 Pulse Ox 100 12/21/20 16:44 Body Mass Index 35.6 Const: Other: occaisional cough General: healthy appearing Nutritional Appearance: average body habitus Orientation/consciousness: oriented to person and patient oriented x3 Limitations: no limitations HENMT: Head: Yes normal to inspection Ears: external ears normal General nose exam: Normal external nose present Mouth: Normal oral and palatal mucosa present and oropharynx normal Throat: Yes posterior oropharynx normal Eyes: General: appearance normal, both eyes and all related structures Neck: Other: supple Neck: Yes normal visual inspection Chest: Chest palpation & inspection: normal inspection of the chest Resp: Auscultation: clear to auscultation bilaterally Cardio: Jugular venous distension: no JVD Rate: regular rate Rhythm: regular rhythm Heart sounds: S1 normal heart sound present and S2 normal heart sound present GI: Inspection: Yes normal to inspection Palpation (GI): Soft to palpation, nontender and No hepatosplenomegaly present Auscultation: normal bowel sounds : General: Yes no CVA tenderness Back/Spine/Pelvis: Back: no CVA tenderness Skin: General skin exam: no rashes or lesions noted Neuro: General: oriented to person and patient oriented x3 Cranial nerves: Yes CN's II-XII intact bilaterally Motor exam (neuro): 5/5 motor strength present throughout Sensory Exam: No Sensory deficit (Neuro) Extrem: General: Yes normal to inspection Psych: Appearance: grossly normal Course Reevaluation(s) Reevaluation #1: patient not acutely ill, has a cough, not hypoxic. Will give extra dose of BP meds and have patient follow up with PCP for blood pressure Time: 18:08 Medical Decision Making Lab Data Labs: Lab Results 12/21/20 Range/Units 16:50 COVID-19 (YANN) Positive A (Negative) COVID-19 Clin Com See Note Discharge Plan Discharge Clinical Impression: COVID-19, Hypertension Patient Disposition: Home, Self-Care Instructions: Hypertension (ED), COVID-19 (Coronavirus Disease 2019) (ED) Prescriptions: New naproxen [Naprosyn] 500 mg tablet 500 mg PO BID Qty: 20 RF: 0 No Action cyclobenzaprine 10 mg tablet 10 mg PO TID PRN (Reason: muscle spasm) Qty: 10 RF: 0 albuterol sulfate 90 mcg/actuation HFA aerosol inhaler 2 inh inhalation QID PRN (Reason: shortness of breath or wheezing) RF: 0 aspirin 81 mg Tablet,Delayed Release (Dr/Ec) 81 mg PO DAILY Qty: 81 RF: 0 (DME) blood-glucose meter [FreeStyle [place]] Kit See Rx Instructions .ROUTE .MEDSUPPLY Qty: 1 RF: 0 (DME) lancets [FreeStyle Lancets] 28 gauge misc See Rx Instructions .ROUTE .MEDSUPPLY Qty: 100 RF: 0 (DME) lancets 18 gauge misc See Rx Instructions .ROUTE .MEDSUPPLY Qty: 100 RF: 0 oxycodone 5 mg capsule 5 mg PO Q8H PRN (Reason: pain (scale score 7-10)) Qty: 7 RF: 0 (DME) FreeStyle Lite Strips Strip See Rx Instructions .ROUTE .MEDSUPPLY Qty: 10 RF: 0 amlodipine 5 mg tablet 5 mg PO DAILY Qty: 30 RF: 8 atorvastatin 80 mg tablet 80 mg PO BEDTIME Qty: 30 RF: 8 hydroxyzine HCl 25 mg tablet 25 mg PO BID PRN (Reason: anxiety) Qty: 90 RF: 8 labetalol 100 mg tablet 100 mg PO BID Qty: 60 RF: 8 lisinopril 10 mg tablet 10 mg PO DAILY Qty: 30 RF: 8 cephalexin 250 mg capsule 250 mg PO Q6H Qty: 20 RF: 0 metformin 500 mg tablet 500 mg PO BID Qty: 180 RF: 8 Referrals: Derrek Hollingsworth MD [Primary Care Provider] - 5 days
[2020-12-21 18:41] VITALS: BP 205/120
[2020-12-21 18:50] VITALS: BP 205/120; PULSE 88
[2020-12-21] MEDS: lisinopriL 10 MG TABLET PO (18:50)
[2020-12-21 18:51] VITALS: BP 205/120; PULSE 88
[2020-12-21] MEDS: Labetalol HCL 100 MG TABLET PO (18:51)
[2020-12-21] MEDS: amLODIPine Besylate 10 MG TABLET PO (18:51)
== END 2020-12-21 18:56 | disposition home or self-care (01) ==
PROVIDERS: Emergency Provider Emergency Medicine; PCP Internal Medicine
DX: U07.1 COVID-19 (principal); M79.10 Myalgia, unspecified site; R50.9 Fever, unspecified; R43.9 Unspecified disturbances of smell and taste; I10 Essential (primary) hypertension; Z79.899 Other long term (current) drug therapy; F17.210 Nicotine dependence, cigarettes, uncomplicated; Z71.6 Tobacco abuse counseling
CPT/HCPCS: 36415; 87635; 99283

== ENCOUNTER 2021-01-01 13:51 | Outpatient (REF) | payer OTHER, SELFPAY | END 2021-01-01 13:52 | disposition home or self-care (01) | LOC: HO.LAB 13:51 | PROVIDERS: PCP Internal Medicine; Visit Provider Internal Medicine | DX: Z20.822 Contact with and (suspected) exposure to COVID-19 (principal) | CPT/HCPCS: C9803; U0003; U0005 ==

== ENCOUNTER → 2021-01-19 09:55 | Outpatient (BNVA) | payer OTHER, SELFPAY | PROVIDERS: PCP Internal Medicine; Referring Provider Internal Medicine; Visit Provider Physician Assistant Surgical ==

== ENCOUNTER → 2021-01-22 08:19 | Outpatient (BNVA) | payer OTHER, SELFPAY | PROVIDERS: PCP Internal Medicine; Visit Provider Surgery ==

== ENCOUNTER 2021-01-25 09:59 | Outpatient (REF) | payer OTHER, SELFPAY ==
--- NOTE | ~2021-01-25 | XR_ITS ---
EXAMINATION: XR CHEST CLINICAL INFORMATION: Obesity COMPARISON: 07/16/2020 TECHNIQUE: 2 views of the chest were obtained. FINDINGS: The lungs are well expanded. There is no focal consolidation, edema, or effusion. No pneumothorax. The cardiomediastinal silhouette is within normal limits. No acute osseous abnormality. XR/XR chest 2V IMPRESSION: No acute pulmonary finding.
--- NOTE | 2021-01-25 10:06 | ECG_ITS ---
Test Reason : obesity Blood Pressure : / mmHG Vent. Rate : 101 BPM Atrial Rate : 101 BPM P-R Int : 154 ms QRS Dur : 088 ms QT Int : 376 ms P-R-T Axes : 065 -04 147 degrees QTc Int : 487 ms Sinus tachycardia Possible Left atrial enlargement Left axis deviation Minimal voltage criteria for LVH, may be normal variant ( Neptali product ) Marked ST abnormality, possible lateral subendocardial injury Abnormal ECG When compared with ECG of 02-SEP-2020 19:04, No significant change was found Referred By: Rocky Oates Electronically Signed By:BERTA CARDONA MD
[2021-01-25 10:48] LABS: Mean Corpuscular Volume 72.1 fL (80.0-98.0); Neutrophils Absolute Auto 8.15 x10*3/uL (2.0-8.3); Red Blood Count 4.99 X10*6/uL (4.20-5.50); Red Cell Distribution Width 18.8 % (11.0-16.0)
[2021-01-25 10:50] LABS: Basophils Absolute Auto 0.1 X10*3/uL (0.0-0.2); Basophils Percent Auto 0.5 % (0-2); Eosinophils Absolute Auto 0.3 X10*3/uL (0.0-0.4); Eosinophils Percent Auto 2.3 % (0-4); Hemoglobin 10.9 g/dl (12.0-16.0); Imm Gran Abs Auto 0.07 X10*3/uL (0.00-0.03); Imm Gran Pct Auto 0.5 % (0.0-0.4); Lymphocytes Absolute Auto 3.5 X10*3/uL (1.2-4.9); Lymphocytes Percent Auto 27.1 % (20-40); Mean Corpuscular HGB Conc 30.3 g/dl (31.0-35.0); Mean Corpuscular Hemoglobin 21.8 pg (27.0-33.0); Mean Platelet Volume 11.2 fL (9.4-12.3); Monocytes Absolute Auto 0.7 X10*3/uL (0.1-1.2); Monocytes Percent Auto 5.8 % (2-11); Neutrophils Percent Auto 63.8 % (45-73); Platelet Count 304 X10*3/uL (160-400); White Blood Count 12.8 X10*3/uL (4.8-10.8)
[2021-01-25 11:00] LABS: Estimated Average Glucose 194 mg/dL; Hemoglobin A1c % 8.4 %
[2021-01-25 11:17] LABS: Alanine Aminotransferase 15 U/L (0-31); Alkaline Phosphatase 78 U/L (39-117); Anion Gap 12 (12-20); Aspartate Amino Transferase 15 U/L (5-31); Bilirubin Total 0.6 mg/dL (0.0-1.0); Blood Urea Nitrogen 8 mg/dL (9-16); C Reactive Protein 0.91 mg/dL (< or = 0.50); Calcium 9.2 mg/dL (8.4-10.2); Carbon Dioxide 28 mmol/L (22-29); Chloride 102 mmol/L (96-108); Cholesterol 180 mg/dL; Estimated Glomerular Filt Rate > 60; Glucose Random 224 mg/dL (60-115); HDL Cholesterol 36 mg/dL; Iron 30 mcg/dL (30-160); LDL Cholesterol Calculated 118 mg/dl; Percent Iron Saturation 7 % (15-50); Potassium 3.7 mmol/L (3.3-5.1); Sodium 138 mmol/L (135-145); Total Iron Binding Capacity 407 mcg/dL (228-428); Triglycerides 133 mg/dL; Unsaturated Iron Binding 377 ug/dL
[2021-01-25 11:44] LABS: Ferritin 6 ng/mL (10-250); Vitamin D 25-OH Total 12.9 ng/mL (>30)
[2021-01-25 12:16] LABS: Folate 10.7 ng/mL (> or = 4.0); Insulin 46 uU/mL (2-29); Vitamin B12 488 pg/mL (200-900)
[2021-01-27 12:11] LABS: Calcium (PTHI) 9.2 mg/dL (8.6-10.2); PTHI 48 pg/mL (14-64)
[2021-01-28 16:36] LABS: Zinc 73 mcg/dL (60-130)
[2021-01-29 06:12] LABS: Vitamin B1 8 nmol/L (8-30)
[2021-01-30 00:57] LABS: Vitamin A 48 mcg/dL (38-98)
== END 2021-01-25 10:00 | disposition home or self-care (01) ==
LOC: HO.XRAY 09:59
PROVIDERS: PCP Internal Medicine; Visit Provider Surgery
DX: E66.9 Obesity, unspecified (principal); I10 Essential (primary) hypertension; K21.9 Gastro-esophageal reflux disease without esophagitis; G45.9 Transient cerebral ischemic attack, unspecified
CPT/HCPCS: 36415; 71046; 80053; 80061; 82306; 82607; 82728; 82746; 83036; 83525; 83540; 83970; 84425; 84443; 84590; 84630; 85025; 86140; 93005

== ENCOUNTER 2021-01-28 09:54 | Outpatient (REF) | payer OTHER, SELFPAY ==
[2021-01-31 11:08] LABS: H Pylori Breath Test Positive (Negative)
== END 2021-01-28 09:55 | disposition home or self-care (01) ==
LOC: HO.LNP 09:54
PROVIDERS: Surgery; PCP Internal Medicine; Referring Provider Internal Medicine; Visit Provider Physician Assistant
DX: E66.9 Obesity, unspecified (principal); I10 Essential (primary) hypertension; K21.9 Gastro-esophageal reflux disease without esophagitis; Z86.73 Personal history of transient ischemic attack (TIA), and cerebral infarction without residual deficits
CPT/HCPCS: 83013; 99211

== ENCOUNTER → 2021-02-26 07:22 | Outpatient (BNVA) | payer OTHER, SELFPAY | PROVIDERS: PCP Internal Medicine; Visit Provider Surgery ==

== ENCOUNTER → 2021-03-08 12:51 | Outpatient (BNVA) | payer OTHER, SELFPAY | PROVIDERS: PCP Internal Medicine; Referring Provider Internal Medicine; Visit Provider Physician Assistant Surgical ==

== ENCOUNTER 2021-03-10 08:59 | Outpatient (REF) | payer OTHER, SELFPAY ==
--- NOTE | ~2021-03-10 | US_ITS ---
EXAMINATION: US COMPLETE ABDOMEN WITH LIVER ELASTOGRAPHY CLINICAL INFORMATION: Obesity COMPARISON: Previous CT of the abdomen and pelvis most recent December 2018 TECHNIQUE: Real-time imaging of the abdominal viscera. Noninvasive ultrasound liver fibrosis assessment is performed using Ivan ElastPQ point quantification shear wave elastography (pSWE) with a C5-2 MHz transducer. Multiple elastography samples are obtained. FINDINGS: PANCREAS: The visualized pancreatic head and body are normal in appearance. The remainder of the pancreas is obscured from visualization by the overlying bowel gas. ABDOMINAL AORTA: The proximal, middle, and distal aortic segments are normal in caliber. INFERIOR VENA CAVA: Visualized portions are normal. LIVER: Normal. The liver demonstrates normal size, contour and echogenicity. No focal lesion or intrahepatic biliary duct dilatation. The right lobe measures 16 cm in length. The left lobe measures 14 cm in length. Portal flow is normal/hepatopedal Shear wave liver elastography median stiffness is 1.4 m/s (reference: normal median stiffness is 1.3 m/s or less). IQR/median stiffness to assess sampling precision is 0.05 (reference: good quality data set is IQR/median stiffness of 0.15 or less). GALLBLADDER: Surgically removed COMMON BILE DUCT: Normal in caliber measuring 0.5 cm in diameter. RIGHT KIDNEY: Normal. No hydronephrosis. No renal calculi or focal parenchymal lesions. The kidney measures 11.5 cm in maximum dimension. LEFT KIDNEY: There is a 4 mm echogenic density in the lower pole with twinkle artifact questionable for a stone. No hydronephrosis. No focal parenchymal lesions. The kidney measures 11.4 cm in maximum dimension. SPLEEN: Normal. The spleen measures 9.2 cm in maximum dimension. FREE FLUID: None. US/US abdomen comp w elastography IMPRESSION: 1. Impression: Normal-appearing liver. Question left renal stone. 2. Liver elastography: Adequate liver sampling. Normal liver stiffness. REFERENCE: Society of Radiologists in Ultrasound Liver Stiffness Thresholds (2020): LIVER STIFFNESS THRESHOLDS: *Liver Stiffness equal or less than 1.3 m/s: High probability of being normal. *Liver Stiffness less than 1.7 m/s: In the absence of other known clinical signs, rules out compensated advanced chronic liver disease. *Liver Stiffness 1.7-2.1 m/s: Suggestive of compensated advanced chronic liver disease but need further test for confirmation. *Liver Stiffness over 2.1 m/s: Rules in compensated advanced chronic liver disease. *Liver Stiffness over 2.4 m/s: Suggestive of clinically significant portal hypertension. QUALITY OF DATA SET: *IQR/Median value equal or less than 0.15 implies a quality data set. *IQR/Median value over 0.15 implies a poor quality data set. SIGNIFICANT CHANGE FROM PRIOR EXAM: Significant change if liver stiffness measurement is 10% or greater from prior exam. OTHER CONSIDERATIONS: The stage of liver fibrosis may be overestimated in the setting of acute hepatitis, liver inflammation, elevated liver function tests, hepatic vascular congestion, obstructive cholestasis, non-fasting state, and infiltrative diseases such as amyloidosis and lymphoma. In some patients with NAFLD, the liver stiffness thresholds for compensated advanced chronic liver disease may be lower. In causes other than viral hepatitis and NAFLD, liver stiffness thresholds are not well established.
--- NOTE | ~2021-03-10 | FL_ITS ---
EXAMINATION: XR FLUOROSCOPY UPPER GI WITH AIR CLINICAL INFORMATION: Obesity. COMPARISON: None TECHNIQUE: Air-contrast upper GI examination FINDINGS: There is normal apposition of the vocal cords while saying E. There is normal elevation of the soft palate saying candy. The patient drank thin and thick barium without difficulty. No nasopharyngeal reflux or tracheal aspiration was identified. No persistent stricture was seen. There is normal esophageal motility. Normal mucosa without evidence of ulceration. No hiatal hernia. No gastroesophageal reflux was elicited including with water siphon test. The stomach demonstrated normal distensibility without abnormal mass or ulceration. There was no delay in gastric emptying. The duodenal bulb and sweep appeared unremarkable. FLUOROSCOPY TIME: 1.3 minutes DOSE AREA PRODUCT: 12.198 Gy-cm2 (carranza-centimeter squared) FL/FL upper GI w air IMPRESSION: Normal air-contrast upper GI examination.
== END 2021-03-10 09:00 | disposition home or self-care (01) ==
LOC: HO.US 08:59
PROVIDERS: PCP Internal Medicine; Visit Provider Surgery
DX: E66.9 Obesity, unspecified (principal); G45.9 Transient cerebral ischemic attack, unspecified; I10 Essential (primary) hypertension; K21.9 Gastro-esophageal reflux disease without esophagitis
CPT/HCPCS: 74246; 76705; 76981

== ENCOUNTER → 2021-03-18 08:04 | Outpatient (BNVA) | payer OTHER, SELFPAY | PROVIDERS: PCP Internal Medicine; Visit Provider Dietitian, Registered ==

== ENCOUNTER → 2021-03-24 08:37 | Outpatient (REF) | payer OTHER, SELFPAY ==
--- NOTE | 2021-03-24 08:40 | CA_ITS ---
Acquisition Time: 2021-03-24 08:42:50 Total Exercise Time: 00:05:51 Test Indications: PREOP Medications: Protocol: RYAN Max HR: 141 BPM 78% of Pred: 179 BPM Max BP: 206/076 mmHG Max Work Load: 7.0 METS Exercise stress test with exercise 5 min 51 sec of Ryan protocol, achievng 78% MPHR, with moderate shortness of breath and request to stop exercise, no chest discomfort, without arrythmia, with hypertensive response to exercise with max BP 206/ 76, with nondiagnostic EKG for ischemia due to abnormal EKG at baseline and suboptimal heart rate. Test reviewed with Dr Mclain. message sent to Dr Armendariz with recommendation for pharmacological nuclear stress test for further evaluation. Referred By: Rocky Oates Overread By: REYNALDO MANCERA
== END ==
LOC: HO.CARD 08:37
PROVIDERS: Visit Provider Surgery
DX: I51.7 Cardiomegaly (principal); R94.31 Abnormal electrocardiogram [ECG] [EKG]
CPT/HCPCS: 93017

== ENCOUNTER → 2021-03-29 15:29 | Outpatient (BNVA) | payer OTHER, SELFPAY | PROVIDERS: PCP Internal Medicine; Referring Provider Internal Medicine; Visit Provider Physician Assistant Surgical ==

== ENCOUNTER 2021-03-30 11:24 | Outpatient (REF) | payer OTHER, SELFPAY ==
[2021-03-30 14:34] LABS: Binax Internal Control QC Valid; Binax Lot number: 9864; Binax Now Covid-19 Ag Negative (Negative)
== END 2021-03-30 11:25 | disposition home or self-care (01) ==
LOC: HO.LAB 11:24
PROVIDERS: Visit Provider Internal Medicine
DX: Z20.822 Contact with and (suspected) exposure to COVID-19 (principal)
CPT/HCPCS: 36415

== ENCOUNTER → 2021-04-02 07:28 | Outpatient (BNVA) | payer OTHER, SELFPAY | PROVIDERS: PCP Internal Medicine; Visit Provider Surgery ==

== ENCOUNTER → 2021-04-06 08:01 | Outpatient (BNVA) | payer OTHER, SELFPAY | PROVIDERS: PCP Internal Medicine; Visit Provider Dietitian, Registered | DX: E66.9 Obesity, unspecified (principal) | CPT/HCPCS: 97802 ==

== ENCOUNTER 2021-04-08 08:47 | Outpatient (REF) | payer OTHER, SELFPAY ==
[2021-04-09 12:58] LABS: H Pylori Breath Test Positive (Negative)
== END 2021-04-08 08:48 | disposition home or self-care (01) ==
LOC: HO.LNP 08:47
PROVIDERS: PCP Internal Medicine; Referring Provider Internal Medicine; Visit Provider Physician Assistant Surgical
DX: Z01.818 Encounter for other preprocedural examination (principal)
CPT/HCPCS: 83013; 99211

== ENCOUNTER → 2021-05-03 08:55 | Outpatient (REF) | payer OTHER, SELFPAY ==
--- NOTE | ~2021-05-03 | NM_ITS ---
Myocardial perfusion study Indication: Abnormal stress test evaluate for myocardial ischemia Technique: The patient was brought in for a Lexiscan perfusion study on 05/03/2021. Patient performed low-level exercise and was injected 0.4 mg of Lexiscan intravenously. Within a minute of injection, 30 mCi of sestamibi was given intravenously. Images were obtained using the SPECT gamma camera interlaced with the gating device. Images were obtained in supine position. Resting perfusion study was performed on 05/04/2021. Patient was administered 30 mCi of sestamibi intravenously at rest. Images were then obtained in supine position. Images obtained with and without CT attenuation. Total DLP 119 mGy-cm. Images were processed with the software and compared side to side in short axis, horizontal long axis and vertical long axis views. Findings: The stress perfusion study showed non attenuated images show mildly to moderately reduced uptake in the anterior and anterolateral wall of the LV myocardium. The inferior wall uptake, inferoseptal wall of the inferolateral wall uptake however there is normal. Attenuation corrected images show some thinning and minimally reduced uptake in the distal septum of the LV myocardium.. The gated study shows normal LV systolic function with visually estimated LVEF of greater than 60%. LV cavity is mildly dilated size. The gated study shows normal wall thickening and contraction of segments. Resting study shows nontender images show similar findings as stress perfusion study. Attenuation corrected study shows normal uptake of radiotracer in all segments of LV myocardium.. Gating at rest reveals normal systolic wall motion with visually estimated ejection fraction at greater than 60%. The findings are consistent with equivocal finding of possible small area of reversible defect in the distal septum suggestive ischemia or shifting breast attenuation artifact.. NM/NM guy perf SPECT rest & str Impression: 1. Myocardial perfusion imaging study shows equivocal small area of mild intensity distal septal ischemia 2. Gated LVEF is greater than 60% 3. Transient ischemic dilatation present EKG is nondiagnostic for ischemia
--- NOTE | 2021-05-03 08:57 | CA_ITS ---
Acquisition Time: 2021-05-03 09:16:20 Total Exercise Time: 00:02:00 Test Indications: ABN STRESS Medications: ASA ANTIBIOTIC PT DOESN'T KNOW MEDS Protocol: LEXISCAN Max HR: 107 BPM 59% of Pred: 179 BPM Max BP: 200/118 mmHG Max Work Load: 1.0 METS Pharmacological stress test with Lexiscan injection, while sitting, without anginal symptoms, without arrythmia, with elevated BP at baseline and no significant change post injection, with nondiagnostic EKG for ischemia. In recovery she reported nausea and was treated with Aminophylline 50mg IVP with improvement in symptom. BP was 186/98 at completion of test. Test reviewed with Dr Mclain. Prior to start of test BP had been as high as 200/112. She had taken her home Lisinopril, Amlodipine and Labetolol 2 hours prior to arrival. She was monitored for over 1 hour, resting in recliner and BP remained elevated but improved to 186/98 prior to start of test. [place] message sent to her PCP without response. She was given an additional 5 mg of Amlodipine. Referred By: Rocky Oates Overread By: REYNALDO MANCERA
== END ==
LOC: HO.CARD 08:55
PROVIDERS: PCP Internal Medicine; Visit Provider Surgery
DX: R94.39 Abnormal result of other cardiovascular function study (principal)
CPT/HCPCS: 78452; 93017; A9500; J0280; J2785

== ENCOUNTER → 2021-05-07 08:12 | Outpatient (BNVA) | payer OTHER, SELFPAY | PROVIDERS: PCP Internal Medicine; Referring Provider Surgery; Visit Provider Dietitian, Registered | DX: E66.9 Obesity, unspecified (principal); E11.9 Type 2 diabetes mellitus without complications; Z68.35 Body mass index [BMI] 35.0-35.9, adult | CPT/HCPCS: 97803 ==

== ENCOUNTER → 2021-06-04 08:08 | Outpatient (BNVA) | payer OTHER, SELFPAY | PROVIDERS: PCP Internal Medicine; Referring Provider Surgery; Visit Provider Dietitian, Registered | DX: E66.9 Obesity, unspecified (principal); Z68.35 Body mass index [BMI] 35.0-35.9, adult | CPT/HCPCS: 97803 ==

== ENCOUNTER → 2021-06-22 14:26 | Outpatient (BNVA) | payer OTHER, SELFPAY | PROVIDERS: PCP Internal Medicine; Referring Provider Internal Medicine; Visit Provider Internal Medicine | DX: I51.89 Other ill-defined heart diseases (principal); I10 Essential (primary) hypertension; R07.2 Precordial pain; E11.8 Type 2 diabetes mellitus with unspecified complications; E66.01 Morbid (severe) obesity due to excess calories; F17.210 Nicotine dependence, cigarettes, uncomplicated; Z68.36 Body mass index [BMI] 36.0-36.9, adult; Z79.84 Long term (current) use of oral hypoglycemic drugs | CPT/HCPCS: 93005; 99212 ==

== ENCOUNTER 2021-06-29 09:41 | Outpatient (REF) | payer OTHER, SELFPAY ==
[2021-06-29 16:40] LABS: CT PCR NOT DETECTED (Not Detect.); NG PCR NOT DETECTED (Not Detect.)
[2021-06-30 09:47] LABS: BV Int Neg Control Negative (Negative); BV Int Pos Control Positive (Positive)
[2021-07-01 17:01] LABS: HPV mRNA E6/E7 rflx Not Detected (Not Detected)
== END 2021-06-29 09:42 | disposition home or self-care (01) ==
LOC: HO.LAB 09:41
PROVIDERS: PCP Internal Medicine; Visit Provider Advanced Practice Midwife
DX: Z01.411 Encounter for gynecological examination (general) (routine) with abnormal findings (principal); Z11.51 Encounter for screening for human papillomavirus (HPV); R32 Unspecified urinary incontinence; N76.0 Acute vaginitis; N94.6 Dysmenorrhea, unspecified; N92.0 Excessive and frequent menstruation with regular cycle; F17.200 Nicotine dependence, unspecified, uncomplicated
CPT/HCPCS: 87480; 87491; 87510; 87591; 87624; 87660; 88142

== ENCOUNTER 2021-07-05 11:07 | Outpatient (REF) | payer OTHER, SELFPAY ==
[2021-07-05 11:19] LABS: MANUAL DIFF FLAG NO
[2021-07-05 12:17] LABS: Basophils Absolute Auto 0.1 X10*3/uL (0.0-0.2); Basophils Percent Auto 0.6 % (0-2); Eosinophils Absolute Auto 0.2 X10*3/uL (0.0-0.4); Eosinophils Percent Auto 2.1 % (0-4); Hematocrit 36.2 % (37.0-47.0); Hemoglobin 11.2 g/dl (12.0-16.0); Imm Gran Abs Auto 0.03 X10*3/uL (0.00-0.03); Imm Gran Pct Auto 0.3 % (0.0-0.4); Lymphocytes Absolute Auto 2.9 X10*3/uL (1.2-4.9); Mean Corpuscular HGB Conc 30.9 g/dl (31.0-35.0); Mean Corpuscular Hemoglobin 22.1 pg (27.0-33.0); Mean Corpuscular Volume 71.4 fL (80.0-98.0); Mean Platelet Volume 11.5 fL (9.4-12.3); Monocytes Absolute Auto 0.6 X10*3/uL (0.1-1.2); Monocytes Percent Auto 5.5 % (2-11); Neutrophils Percent Auto 64.5 % (45-73); Platelet Count 283 X10*3/uL (160-400); Red Blood Count 5.07 X10*6/uL (4.20-5.50); Red Cell Distribution Width 18.9 % (11.0-16.0); White Blood Count 10.8 X10*3/uL (4.8-10.8)
[2021-07-05 12:24] LABS: Prothrombin Time 11.3 SEC (9.9-13.0)
[2021-07-05 12:48] LABS: Alanine Aminotransferase 13 U/L (0-31); Albumin Level 3.8 g/dL (3.5-5.0); Alkaline Phosphatase 93 U/L (39-117); Anion Gap 16 (12-20); Aspartate Amino Transferase 16 U/L (5-31); Bilirubin Total 0.5 mg/dL (0.0-1.0); Blood Urea Nitrogen 14 mg/dL (9-16); Calcium 9.5 mg/dL (8.4-10.2); Carbon Dioxide 25 mmol/L (22-29); Chloride 99 mmol/L (96-108); Cholesterol 201 mg/dL; Estimated Glomerular Filt Rate > 60; Glucose Fasting 298 mg/dL (60-99); HDL Cholesterol 38 mg/dL; LDL Cholesterol Calculated 138 mg/dl; Potassium 3.4 mmol/L (3.3-5.1); Sodium 137 mmol/L (135-145); Total Protein 7.1 g/dL (6.5-8.0); Triglycerides 126 mg/dL
[2021-07-05 13:11] LABS: Thyroid Stimulating Hormone 1.42 uIU/mL (0.32-4.0)
== END 2021-07-05 11:08 | disposition home or self-care (01) ==
LOC: HO.LAB 11:07
PROVIDERS: Absent Provider Internal Medicine; PCP Internal Medicine; Visit Provider Internal Medicine
DX: Z00.00 Encounter for general adult medical examination without abnormal findings (principal); Z13.0 Encounter for screening for diseases of the blood and blood-forming organs and certain disorders involving the immune mechanism; I10 Essential (primary) hypertension
CPT/HCPCS: 36415; 80053; 80061; 84443; 85025; 85610

== ENCOUNTER 2021-07-14 08:54 | Outpatient (REF) | payer OTHER, SELFPAY ==
--- NOTE | ~2021-07-14 | MM_ITS ---
EXAMINATION: MM SCREENING DIGITAL BREAST TOMOSYNTHESIS, BILATERAL CLINICAL INFORMATION: Screening. Asymptomatic. Age 40. No prior mammography. No known family history breast cancer. The lifetime risk of breast cancer based on the Tyrer-Cuzick Model is 6%. COMPARISON: None (current study represents initial baseline exam). TECHNIQUE: Digital breast tomosynthesis is performed in both the craniocaudal and mediolateral oblique views along with computer-aided detection (CAD). Synthesized 2D images are generated from the tomosynthesis. FINDINGS: There are scattered areas of fibroglandular density (ACR BI-RADS breast composition Category b). There are no significant masses, abnormal calcifications, or other abnormalities. The axilla and skin contours are unremarkable. MM/MM tomosynthesis screening BI IMPRESSION: No mammographic evidence of malignancy. ASSESSMENT: BI-RADS 1: Negative RECOMMENDATION: Routine annual mammography screening. This patient's information was entered into a reminder system with a target due date for their next mammogram.
== END 2021-07-14 08:55 | disposition home or self-care (01) ==
LOC: HO.MAMMO 08:54
PROVIDERS: Visit Provider Advanced Practice Midwife
DX: Z12.31 Encounter for screening mammogram for malignant neoplasm of breast (principal)
CPT/HCPCS: 77063; 77067

== ENCOUNTER 2021-07-21 18:12 | Observation (INO) | payer OTHER, SELFPAY ==
--- NOTE | 2021-07-21 | ECG_ITS ---
Test Reason : CHEST PAIN Blood Pressure : / mmHG Vent. Rate : 101 BPM Atrial Rate : 101 BPM P-R Int : 154 ms QRS Dur : 086 ms QT Int : 360 ms P-R-T Axes : 055 -05 145 degrees QTc Int : 466 ms Sinus tachycardia Left ventricular hypertrophy with repolarization abnormality ( R in aVL , [place] product ) Abnormal ECG When compared with ECG of 25-JAN-2021 10:10, T wave inversion less evident in Lateral leads Referred By: Generic ED Physician Electronically Signed By:LAURA RIDDLE
--- NOTE | ~2021-07-21 | US_ITS ---
EXAMINATION: US VENOUS WITH DOPPLER UPPER EXTREMITY, RIGHT CLINICAL INFORMATION: Swelling and pain status post cardiac catheter yesterday. COMPARISON: No similar priors. TECHNIQUE: Ultrasound of the upper extremity is performed using compression sonography and color and pulse Doppler flow with assessment of augmentation of flow. There is also imaging and Doppler assessment of the jugular and subclavian veins. Spectral analysis with color-flow imaging is performed. FINDINGS: Respiratory variation, normal compression, and augmented flow are noted throughout the upper extremity including the axillary, brachial, cubital, and radial and ulnar veins. There is normal flow in the internal jugular and subclavian veins. There is no visible deep or superficial thrombophlebitis. If the patient's symptoms progress, a followup ultrasound in 5 -7 days might be of value to exclude proximal propagation from a nonvisualized distal arm vein. US/US venous duplex UE RT IMPRESSION: No DVT demonstrated in the right upper extremity.
[2021-07-21 18:16] VITALS: BP 213/104; PULSE 102; RESP 20; TEMP 37.4; O2SAT 99; BMI 36.2
[2021-07-21 19:00] LABS: Hemoglobin 11.1 g/dl (12.0-16.0); Imm Gran Abs Auto 0.06 X10*3/uL (0.00-0.03); Imm Gran Pct Auto 0.4 % (0.0-0.4); MANUAL DIFF FLAG SCAN; Mean Corpuscular Hemoglobin 22.2 pg (27.0-33.0); Red Blood Count 5.01 X10*6/uL (4.20-5.50); SCAN SMEAR FLAG 1
[2021-07-21 19:02] LABS: Anion Gap 13 (12-20); Basophils Percent Auto 0.3 % (0-2); Blood Urea Nitrogen 13 mg/dL (9-16); Calcium 9.1 mg/dL (8.4-10.2); Carbon Dioxide 23 mmol/L (22-29); Chloride 104 mmol/L (96-108); Creatinine Clr Calc Pharmacy 97.6; Eosinophils Absolute Auto 0.3 X10*3/uL (0.0-0.4); Eosinophils Percent Auto 1.9 % (0-4); Estimated Glomerular Filt Rate > 60; Glucose Random 304 mg/dL (60-115); Hematocrit 35.6 % (37.0-47.0); Lymphocytes Absolute Auto 3.6 X10*3/uL (1.2-4.9); Lymphocytes Percent Auto 26.3 % (20-40); Mean Corpuscular HGB Conc 31.2 g/dl (31.0-35.0); Mean Corpuscular Volume 71.1 fL (80.0-98.0); Mean Platelet Volume 11.3 fL (9.4-12.3); Monocytes Absolute Auto 0.8 X10*3/uL (0.1-1.2); Monocytes Percent Auto 5.5 % (2-11); Neutrophils Percent Auto 65.6 % (45-73); PLT ABN DIST 1; Platelet Count 299 X10*3/uL (160-400); Potassium 3.8 mmol/L (3.3-5.1); Sodium 136 mmol/L (135-145); White Blood Count 13.7 X10*3/uL (4.8-10.8)
[2021-07-21 19:11] LABS: Troponin-I High Sensitivity 127.6 ng/L (<3.5-17.0)
[2021-07-21 19:26] LABS: SLIDE REVIEW VERIFIED
--- NOTE | 2021-07-21 19:42 | ED.CHESTPAIN ---
HPI - Chest Pain General Chief Complaint: Chest Pain Stated Complaint: numbness Time Seen by Provider: 07/21/21 19:27 Source: patient Mode of arrival: ambulatory Limitations: no limitations History of Present Illness HPI narrative: Patient comes emergency room complaining of rightarm swelling and chest pressure, both started approximately 12 hours ago. Patient states that yesterday she had a cardiac catheterization at [facility]. Patient did not get any stents. Patient was discharged the same day. Patient denies any URI symptoms. Patient states that she does not feel well, unable to describe. Complaining mostly of weakness. Denies shortness of breath, no lower extremity pain Related Data Home Medications Medication Instructions Recorded Confirmed blood sugar diagnostic (FreeStyle #10 ea 09/10/20 06/22/21 Lite Strips) amlodipine 5 mg tablet 1 tab PO DAILY 07/21/21 07/21/21 valacyclovir 500 mg tablet 1 tab PO DAILY 07/21/21 07/21/21 Previous Rx's Medication Instructions Recorded blood-glucose meter (FreeStyle #1 ea 09/05/20 [place]) lancets 28 gauge (FreeStyle #100 ea 09/05/20 Lancets) labetalol 100 mg tablet 100 mg PO BID #60 tab 09/10/20 aspirin 81 mg tablet,delayed 81 mg PO DAILY #81 tab 01/22/21 release lancets 18 gauge #100 ea 01/22/21 cholecalciferol (vitamin D3) 125 125 mcg PO DAILY #30 cap 02/26/21 mcg (5,000 unit) capsule omeprazole 40 mg capsule,delayed 40 mg PO DAILY #14 cap 02/26/21 release albuterol sulfate 90 mcg/actuation 2 inh INHALATION QID PRN #8.5 g 04/26/21 aerosol inhaler nebulizers #1 ea 06/17/21 lisinopril 40 mg tablet 40 mg PO DAILY #90 tab 06/22/21 Allergies Allergy/AdvReac Type Severity Reaction Status Date / Time latex [Latex] Allergy Unknown RASH Verified 06/29/21 09:48 Review of Systems Review of Systems: Constitutional : No Weight loss, No Fever, No Chills, No Night Sweats, complaining of fatigue, generalized malaise ENT/Mouth : No Hearing loss, No Ear Pain, No Nasal Congestion, No Sinus Pain, No Hoarseness, No sore throat, No Rhinorrhea, No Swallowing Difficulty Eyes: No Eye Pain, No Swelling, No Redness, No Foreign Body, No Discharge, No Vision Changes Cardiovascular : Complaining of chest pressure radiating up towards the head, No SOB, No Dyspnea on Exertion, No Orthopnea, No Edema, No Palpitations Respiratory : No Cough, No Sputum, No Wheezing, No Smoke Exposure, No Dyspnea Gastrointestinal : No Nausea, No Vomiting, No Diarrhea, No Constipation, No abdominal Pain, No Hematochezia, No Melena Genitourinary : no irregular bleeding, No Dysuria, No Urinary Frequency, No Hematuria, No Urinary Incontinence, No Urgency, No Flank Pain, No Urinary Flow Changes, No Hesitancy Musculoskeletal : No joint pain, complaining of right arm pain and swelling, especially in the forearm Skin : No Skin Lesions, No rash Neuro : No Weakness, No Numbness, No Paresthesias, No Loss of Consciousness, No Dizziness, No Headache Psych : No Anxiety/Panic, No Depression, No SI/HI/AH/VH, No Social Issues, Heme/Lymph: No Bruising, No Bleeding,No Lymphadenopathy Endocrine : No Polyuria, No Polydipsia, No Temperature Intolerance [facility] Past Medical History Medical History (Updated 07/21/21 @ 21:56 by Darshan Clancy MD) Asthma Diabetes mellitus DJD (degenerative joint disease) GERD (gastroesophageal reflux disease) HSV (herpes simplex virus) infection HTN (hypertension) Obesity Smoking TIA (transient ischemic attack) Surgical History (Updated 07/21/21 @ 19:46 by Niesha Ramey MD) H/O cardiac catheterization Hx of appendectomy Hx of section Hx of cholecystectomy Hx of tubal ligation Family History Family History Mother Heart disease Diabetes Hypertension Hyperlipidemia Fibromyalgia Father No problems noted. Brother No problems noted. Brother No problems noted. Brother No problems noted. Sister Deep vein thrombosis Son No problems noted. Son No problems noted. Daughter Hypertension Daughter No problems noted. Maternal Aunt History of breast cancer Social History Social History Household Members: Children Housing: Apartment Do you presently have visiting nurse or other home services: No Alcohol intake: former Patient Tobacco Use Status: Current someday Tobacco user Tobacco use type: Cigarette Cigarettes Per Day: 3 e-Cigarette/Vaping Use: Never Used Second Hand Smoke Exposure: No Use of substances other than those prescribed or required for medical reasons: No Advance Directives: No Advance Directives Information Provided: Yes Patient : No service: No Current occupational status: employed Cognitive needs: No Hearing needs: No Vision needs: No Physical Exam Vital Signs: Vital Signs: Last Vital Signs Temp 99.3 F 07/21/21 18:16 Pulse 85 07/21/21 21:22 Resp 20 07/21/21 21:53 BP 158/85 H 07/21/21 21:22 Pulse Ox 99 07/21/21 21:22 BMI result Body Mass Index 36.2 Const: Other: Appearance: Alert. Oriented X3. No acute distress. Eyes: Pupils equal, round and reactive to light. ENT: Pharynx normal. Neck: Normal inspection. Neck supple. No lymph nodes noted. No crepitus CVS: Normal heart rate and rhythm. Pulses normal. Normal S1 and S2 Respiratory: No respiratory distress. Breath sounds normal. No Wheezing. No rales Abdomen: Soft and nontender. No rigidity. No distention. Skin: Skin warm and dry. Normal skin color. Normal skin turgor. The bandage and arm was changed, the skin looks well, no cellulitis Extremities: No lower extremity edema. Right distal upper extremity is moderately swollen, pain to palpation especially around the incision site for cardiac catheterization Neuro: Oriented X 3. No motor deficit. No sensory deficit. Moving all extremities. No slurred speech. CN 2 through 12 grossly intact Psych: calm, cooperative, normal affect Course Course Course Narrative: Initial troponin is elevated, patient has had elevated troponins 1st multiple years. EKG has no changes compared to previous EKGs of 2020. Troponin 2 pending. Per [facility] records, the LMC, LAD, left circumflex, RCA are all normal. The coronary arteries are angiographically normal. Hemodynamics: Elevated systemic pressures, normal LVEDP. There is no significant gradient on pullback across the aortic valve I discussed the ultrasound with the patient, no acute findings, likely localized swelling from the procedure itself. However her 2nd troponin is a bit bumped. I discussed the above-mentioned with Dr. Owen, patient will be staying overnight for observation. At this time, patient states that every once in a while she feels a sharp pain on the right side of her chest. Otherwise feeling well I discussed the patient with Dr. Clancy I was informed by the patient's nurse that the patient ordered Giovanna's, foot delivered to the ED MDM - Chest Pain Lab Data Result diagrams: 07/21/21 18:36 07/21/21 18:36 Labs: Lab Results 07/21/21 07/21/21 07/21/21 Range/Units 18:36 18:36 18:36 WBC 13.7 H (4.8-10.8) X10*3/uL RBC 5.01 (4.20-5.50) X10*6/uL Hgb 11.1 L (12.0-16.0) g/dl Hct 35.6 L (37.0-47.0) % MCV 71.1 L (80.0-98.0) fL MCH 22.2 L (27.0-33.0) pg MCHC 31.2 (31.0-35.0) g/dl RDW 19.0 H (11.0-16.0) % Plt Count 299 (160-400) X10*3/uL MPV 11.3 (9.4-12.3) fL Immature Gran % (Auto) 0.4 (0.0-0.4) % Neut % (Auto) 65.6 (45-73) % Lymph % (Auto) 26.3 (20-40) % [place] % (Auto) 5.5 (2-11) % Eos % (Auto) 1.9 (0-4) % Baso % (Auto) 0.3 (0-2) % Lymph # (Auto) 3.6 (1.2-4.9) X10*3/uL [place] # (Auto) 0.8 (0.1-1.2) X10*3/uL Eos # (Auto) 0.3 (0.0-0.4) X10*3/uL Baso # (Auto) 0.0 (0.0-0.2) X10*3/uL Abs Immat Gran (auto) 0.06 H (0.00-0.03) X10*3/uL Absolute Neuts (auto) 9.0 H (2.0-8.3) x10*3/uL Absolute Nucleated RBC 0.000 (0.0-0.012) X10*3/uL Nucleated RBC % (auto) 0.0 (0.0-0.2) /100WBC Smear Tech's Comments VERIFIED Sodium 136 (135-145) mmol/L Potassium 3.8 (3.3-5.1) mmol/L Chloride 104 (96-108) mmol/L Carbon Dioxide 23 (22-29) mmol/L Anion Gap 13 (12-20) BUN 13 (9-16) mg/dL Creatinine 0.79 (0.5-1.4) mg/dL Estim Creat Clear Calc 97.6 Estimated GFR > 60 Random Glucose 304 H (60-115) mg/dL Calcium 9.1 (8.4-10.2) mg/dL Troponin I High Sens 127.6 H* (<3.5-17.0) ng/L COVID-19 (YANN) (Negative) COVID-19 Clin Com Influenza Type A (BENITA) (Negative) Influenza Type B (BENITA) (Negative) Influenza A & B Note 07/21/21 07/21/21 07/21/21 Range/Units 19:51 19:51 20:47 WBC (4.8-10.8) X10*3/uL RBC (4.20-5.50) X10*6/uL Hgb (12.0-16.0) g/dl Hct (37.0-47.0) % MCV (80.0-98.0) fL MCH (27.0-33.0) pg MCHC (31.0-35.0) g/dl RDW (11.0-16.0) % Plt Count (160-400) X10*3/uL MPV (9.4-12.3) fL Immature Gran % (Auto) (0.0-0.4) % Neut % (Auto) (45-73) % Lymph % (Auto) (20-40) % [place] % (Auto) (2-11) % Eos % (Auto) (0-4) % Baso % (Auto) (0-2) % Lymph # (Auto) (1.2-4.9) X10*3/uL [place] # (Auto) (0.1-1.2) X10*3/uL Eos # (Auto) (0.0-0.4) X10*3/uL Baso # (Auto) (0.0-0.2) X10*3/uL Abs Immat Gran (auto) (0.00-0.03) X10*3/uL Absolute Neuts (auto) (2.0-8.3) x10*3/uL Absolute Nucleated RBC (0.0-0.012) X10*3/uL Nucleated RBC % (auto) (0.0-0.2) /100WBC Smear Tech's Comments Sodium (135-145) mmol/L Potassium (3.3-5.1) mmol/L Chloride (96-108) mmol/L Carbon Dioxide (22-29) mmol/L Anion Gap (12-20) BUN (9-16) mg/dL Creatinine (0.5-1.4) mg/dL Estim Creat Clear Calc Estimated GFR Random Glucose (60-115) mg/dL Calcium (8.4-10.2) mg/dL Troponin I High Sens 146.7 H* (<3.5-17.0) ng/L COVID-19 (YANN) Negative (Negative) COVID-19 Clin Com See Note Influenza Type A (BENITA) Negative (Negative) Influenza Type B (BENITA) Negative (Negative) Influenza A & B Note See Note Discharge Plan Discharge Clinical Impression: Atypical chest pain, Elevated troponin Patient Disposition: Admitted as Observation
[2021-07-21 20:09] VITALS: BP 138/68; PULSE 95; RESP 19
[2021-07-21 20:13] LABS: COVID-19 Test Negative (Negative); IDNOW Serial# 55D5AD1C; Influenza A Negative (Negative); Influenza B2 Negative (Negative)
[2021-07-21] MEDS: 0.9 % Sodium Chloride 1,000 ML 999 ML IVCONT (20:32)
[2021-07-21] MEDS: Labetalol HCL 100 MG TABLET PO (20:32)
[2021-07-21] MEDS: Insulin Regular, Human 100 UNIT/ML 3 ML VIAL IVPUSH (20:32)
[2021-07-21] MEDS: Aspirin Enteric Coated 325 MG TABLET.DR PO (20:32)
[2021-07-21 21:18] LABS: Troponin-I High Sensitivity 146.7 ng/L (<3.5-17.0)
[2021-07-21 21:22] VITALS: BP 158/85; PULSE 85; RESP 18; O2SAT 99
[2021-07-21 21:53] VITALS: RESP 20
--- NOTE | 2021-07-21 21:55 | P.HPHOSP_ITS ---
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 Patient reports that she has been having chest heaviness and the upper arm heaviness for few months; had stress test as outpatient which was abnormal and subsequently had cardiac catheterization done on 07/20/2021; mentioned that her coronaries were clean and she not have any stent placed. After she went home the next day morning when she woke up she felt hip denies any her upper extremities and chest heaviness; assist with diaphoresis, lightheadedness; subsequently came to the ER for further evaluation. At the time of my interview of reports that tap chest heaviness improved. Denies any nausea vomiting diarrhea. Denies any fever chills cough or sputum production. Review of all other systems is negative except mentioned above ER course: Per ER team patient noted to have elevated troponins 127-->146; EKG was non ischemic; discussed with Cardiology Dr. Owen who suggested admission to the hospital for observation. [facility] Medical History (Updated 07/21/21 @ 21:56 by Darshan Clancy MD) Asthma Diabetes mellitus DJD (degenerative joint disease) GERD (gastroesophageal reflux disease) HSV (herpes simplex virus) infection HTN (hypertension) Obesity Smoking TIA (transient ischemic attack) Family History Mother Heart disease Diabetes Hypertension Hyperlipidemia Fibromyalgia Father No problems noted. Brother No problems noted. Brother No problems noted. Brother No problems noted. Sister Deep vein thrombosis Son No problems noted. Son No problems noted. Daughter Hypertension Daughter No problems noted. Maternal Aunt History of breast cancer Surgical History (Updated 07/21/21 @ 19:46 by Niesha Ramey MD) H/O cardiac catheterization Hx of appendectomy Hx of section Hx of cholecystectomy Hx of tubal ligation Social History Household Members: Children Housing: Apartment Do you presently have visiting nurse or other home services: No Alcohol intake: former Patient Tobacco Use Status: Current someday Tobacco user Tobacco use type: Cigarette Cigarettes Per Day: 3 e-Cigarette/Vaping Use: Never Used Second Hand Smoke Exposure: No Use of substances other than those prescribed or required for medical reasons: No Advance Directives: No Advance Directives Information Provided: Yes Patient : No service: No Current occupational status: employed Cognitive needs: No Hearing needs: No Vision needs: No Meds Allergies Allergy/AdvReac Type Severity Reaction Status Date / Time latex [Latex] Allergy Unknown RASH Verified 06/29/21 09:48 Active Medications: Current Medications Pharmacy Consult (Consult Rx Perform Med Rec) 1 each MISCELLANE ONCE PRN PRN Reason: Consult order Home Medications Medication Instructions Recorded Confirmed Last Taken Type blood sugar diagnostic (FreeStyle #10 ea 09/10/20 06/22/21 Unknown History Lite Strips) amlodipine 5 mg tablet 1 tab PO DAILY 07/21/21 07/21/21 Unknown History valacyclovir 500 mg tablet 1 tab PO DAILY 07/21/21 07/21/21 Unknown History Physical Exam Vital Signs and Narrative: Vital Signs: Last Vital Signs Temp 99.3 F 07/21/21 18:16 Pulse 85 07/21/21 21:22 Resp 18 07/21/21 21:22 BP 158/85 H 07/21/21 21:22 Pulse Ox 99 07/21/21 21:22 BMI result Body Mass Index 36.2 Gen: Appears be in no acute distress HEENT: NCAT, Moist mucosa. Pulmonary: Vesicular breath sounds, fair air entry CVS: Normal S1-S2 Abdomen: BS+, Soft, Nontender Extremities: Warm well perfused Neuro: Alert and awake. Results Labs CBC and Chem 7: 07/21/21 18:36 07/21/21 18:36 Labs: Laboratory Results - last 24 hr 07/21/21 07/21/21 07/21/21 18:36 18:36 18:36 MCV 71.1 L MCH 22.2 L MCHC 31.2 RDW 19.0 H Plt Count 299 MPV 11.3 Immature Gran % (Auto) 0.4 Neut % (Auto) 65.6 Lymph % (Auto) 26.3 [place] % (Auto) 5.5 Eos % (Auto) 1.9 Baso % (Auto) 0.3 Lymph # (Auto) 3.6 [place] # (Auto) 0.8 Eos # (Auto) 0.3 Baso # (Auto) 0.0 Abs Immat Gran (auto) 0.06 H Absolute Neuts (auto) 9.0 H Absolute Nucleated RBC 0.000 Nucleated RBC % (auto) 0.0 Smear Tech's Comments VERIFIED Anion Gap 13 Estim Creat Clear Calc 97.6 Estimated GFR > 60 Random Glucose 304 H Calcium 9.1 Troponin I High Sens 127.6 H* COVID-19 (YANN) COVID-19 Clin Com Influenza Type A (BENITA) Influenza Type B (BENITA) Influenza A & B Note 07/21/21 07/21/21 07/21/21 19:51 19:51 20:47 MCV MCH MCHC RDW Plt Count MPV Immature Gran % (Auto) Neut % (Auto) Lymph % (Auto) [place] % (Auto) Eos % (Auto) Baso % (Auto) Lymph # (Auto) [place] # (Auto) Eos # (Auto) Baso # (Auto) Abs Immat Gran (auto) Absolute Neuts (auto) Absolute Nucleated RBC Nucleated RBC % (auto) Smear Tech's Comments Anion Gap Estim Creat Clear Calc Estimated GFR Random Glucose Calcium Troponin I High Sens 146.7 H* COVID-19 (YANN) Negative COVID-19 Clin Com See Note Influenza Type A (BENITA) Negative Influenza Type B (BENITA) Negative Influenza A & B Note See Note Imaging Radiologist's Impressions: Impressions Venous Duplex 07/21/21 20:02 IMPRESSION: No DVT demonstrated in the right upper extremity. 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 Chest heaviness: Currently improving. EKG nonischemic Troponins: 127-140 6-195 D-dimer pending Sublingual nitroglycerin p.r.n. Cardiology consult Patient is status post cardiac catheterization via right upper extremity; venous duplex negative for DVT. History of diabetes: Insulin sliding scale History of hypertension: Continue home med if needed, labetalol, lisinopril- patient blood pressure on presentation was on the high side. DVT prophylaxis: Lovenox Code status: Full code Quality Stroke Does the patient have a stroke diagnosis?: No VTE Prior VTE?: No VTE Risk Level:: Medical - moderate - high VTE Device Contraindication: Treatment Not Indicated VTE Drug Contraindication: N/A - Med Ordered
--- NOTE | 2021-07-21 22:10 | PHA.MEDREC ---
Addendum entered by Giovany Perkins [facility] 07/21/21 22:16: CONFIRMED PATIENT LAST FILLED METFORMIN 6 MONTHS AGO Original Note: Pharmacy Consult ? Medication Reconciliation Pharmacy has completed the medication reconciliation. WENT THROUGH CURRENT FILL LIST WITH PATIENT. SHE CONFIRMED ALL DOSES (INCLUDING INCREASES) FREQUENCIES. PATIENT MENTIONED DIABETES MEDS, [facility] CONFIRMED CURRENT LIST AGAIN AND SHE CONFIRMED THAT WAS ALL SHE IS CURRENTLY TAKING. PATIENT WAS PREVIOUSLY ON METFORMIN BUT HAS NOT FILLED IN SEVERAL MONTHS.
[2021-07-21 22:49] LABS: Glucose, Whole Blood 154 mg/dL (60-115)
[2021-07-21] MEDS: Acetaminophen 325 MG TABLET 650 MG PO (23:02)
--- NOTE | 2021-07-22 02:18 | PC.NURSE ---
report given to DESTINI Underwood
[2021-07-22 02:38] VITALS: BP 180/92; PULSE 95; RESP 20; TEMP 36.8; O2SAT 98
[2021-07-22 02:56] VITALS: RESP 18
[2021-07-22] MEDS: HYDROmorphone HCl 1 MG/ML SYRINGE 0.5 MG IVPUSH (02:56)
[2021-07-22] MEDS: amLODIPine Besylate 5 MG TABLET PO (04:11)
[2021-07-22 04:33] LABS: Troponin-I High Sensitivity 195.4 ng/L (<3.5-17.0)
[2021-07-22 05:21] VITALS: BP 158/75; PULSE 82; RESP 20; TEMP 36.8; O2SAT 96
[2021-07-22] MEDS: Omeprazole 40 MG CAPSULE.DR PO (06:24)
[2021-07-22 07:06] LABS: MANUAL DIFF FLAG NO
[2021-07-22 07:21] LABS: Glucose, Whole Blood 196 mg/dL (60-115)
[2021-07-22 07:25] LABS: Anion Gap 11 (12-20); Blood Urea Nitrogen 11 mg/dL (9-16); Calcium 9.1 mg/dL (8.4-10.2); Carbon Dioxide 22 mmol/L (22-29); Chloride 106 mmol/L (96-108); Creatinine Clr Calc Pharmacy 108.5; Estimated Glomerular Filt Rate > 60; Glucose Random 187 mg/dL (60-115); Potassium 4.2 mmol/L (3.3-5.1); Sodium 135 mmol/L (135-145)
[2021-07-22 07:29] LABS: Basophils Percent Auto 0.3 % (0-2); Eosinophils Absolute Auto 0.3 X10*3/uL (0.0-0.4); Eosinophils Percent Auto 2.3 % (0-4); Hematocrit 35.1 % (37.0-47.0); Hemoglobin 10.6 g/dl (12.0-16.0); Imm Gran Abs Auto 0.06 X10*3/uL (0.00-0.03); Imm Gran Pct Auto 0.5 % (0.0-0.4); Lymphocytes Absolute Auto 3.9 X10*3/uL (1.2-4.9); Lymphocytes Percent Auto 31.5 % (20-40); Mean Corpuscular HGB Conc 30.2 g/dl (31.0-35.0); Mean Corpuscular Hemoglobin 21.5 pg (27.0-33.0); Mean Corpuscular Volume 71.3 fL (80.0-98.0); Monocytes Absolute Auto 0.8 X10*3/uL (0.1-1.2); Monocytes Percent Auto 6.4 % (2-11); Neutrophils Absolute Auto 7.3 x10*3/uL (2.0-8.3); Platelet Count 284 X10*3/uL (160-400); Red Blood Count 4.92 X10*6/uL (4.20-5.50); Red Cell Distribution Width 18.8 % (11.0-16.0); White Blood Count 12.4 X10*3/uL (4.8-10.8)
[2021-07-22 07:40] LABS: D Dimer High Sensitivity 888 NG/ML
[2021-07-22] MEDS: Cholecalciferol (Vitamin D3) 25 MCG TABLET 125 MCG PO (07:41)
[2021-07-22] MEDS: Aspirin Enteric Coated 81 MG TABLET.DR PO (07:42)
[2021-07-22] MEDS: valACYclovir HCL 500 MG TABLET PO (07:42)
[2021-07-22] MEDS: Insulin Lispro 100 UNIT/ML 3 ML VIAL SUBCUT (07:42)
[2021-07-22] MEDS: lisinopriL 40 MG TABLET PO (07:45)
--- NOTE | 2021-07-22 08:16 | PC.NURSE ---
Pt alerta nd oriented, able to make needs known, resting with eyes closed. LS clear, pt ambulated to bathroom independently.
[2021-07-22 08:36] VITALS: BP 141/77; PULSE 80; RESP 22; O2SAT 97
--- NOTE | 2021-07-22 09:22 | P.CONCA_ITS ---
History of Present Illness History of Present Illness Date of Service: 07/22/21 Chief complaint: Chest pain Narrative: This is a cardiology consultation regarding chest pain. To recall, she has got multiple cardiovascular risk factors including poorly controlled hypertension, diabetes, smoking. She was having episodes of chest pain and in the process of getting cardiac workup, underwent diagnostic cardiac catheterization this week. That actually showed normal coronary arteries. However, the last 24 hours or so, she again had chest discomfort and also headache, bilateral shoulder discomfort and that led to ER visit. Her troponins were found to be elevated. She does have chronic elevation of troponins but this time, it was higher than in the past. Otherwise, she also had markedly high blood pressure and the initial pressure was 213/104 mm Hg. Today it is still high but not as much. She states she is feeling better. Otherwise, she does get chest pains at different times with and without exertion. Shortness of breath with activity. Suspect these all from poorly controlled hypertension. Review of Systems Review of Systems: Yes all other systems are reviewed and are negative Constitutional: Constitutional: Reports as per HPI Eyes: Eyes: Reports as per HPI ENT: Reports as per HPI Cardiovascular: Cardiovascular: Reports as per HPI, Denies acrocyanosis, Denies cool extremities, Reports chest pain, Denies leg edema, Denies lightheadedness, Denies palpitations and Reports dyspnea Respiratory: Respiratory: Reports as per HPI, Reports no additional respiratory complaints and Reports dyspnea Gastrointestinal: Gastrointestinal: Reports as per HPI and Reports no additional gastrointestinal complaints Genitourinary: Genitourinary: Reports as per HPI Musculoskeletal: Musculoskeletal: Reports no additional musculoskeletal complaints and Reports as per HPI Integumentary/Breasts: Skin/Breast: Reports system reviewed and no additional complaints, except as docu Neurologic: Reports system reviewed and no additional complaints, except as documented and Reports as per HPI Psychiatric: Psychiatric: Reports no additional psychiatric complaints and Reports as per HPI Endocrine: Endocrine: Reports no additional endocrine complaints, Reports as per HPI and Denies palpitations Hematologic/Lymphatic: Hematologic/Lymphatic: Reports no additional hematologic/lymphatic complaints and Reports as per HPI Allergic/Immunologic: Allergic/Immunologic: Reports no additional allergic/imm unologic complaints and Reports as per HPI [facility] Past Medical History Medical History (Updated 07/22/21 @ 09:25 by Dieter Owen MD) Asthma Diabetes mellitus DJD (degenerative joint disease) GERD (gastroesophageal reflux disease) HSV (herpes simplex virus) infection HTN (hypertension) Obesity Smoking TIA (transient ischemic attack) Family History Family History Mother Heart disease Diabetes Hypertension Hyperlipidemia Fibromyalgia Father No problems noted. Brother No problems noted. Brother No problems noted. Brother No problems noted. Sister Deep vein thrombosis Son No problems noted. Son No problems noted. Daughter Hypertension Daughter No problems noted. Maternal Aunt History of breast cancer Surgical History Surgical History (Updated 07/21/21 @ 19:46 by Niesha Ramey MD) H/O cardiac catheterization Hx of appendectomy Hx of section Hx of cholecystectomy Hx of tubal ligation Social History Social History Household Members: Children Housing: Apartment Do you presently have visiting nurse or other home services: No Alcohol intake: former Patient Tobacco Use Status: Current someday Tobacco user Tobacco use type: Cigarette Cigarettes Per Day: 3 e-Cigarette/Vaping Use: Never Used Second Hand Smoke Exposure: No Use of substances other than those prescribed or required for medical reasons: No Advance Directives: No Advance Directives Information Provided: Yes Patient : No service: No Current occupational status: employed Cognitive needs: No Hearing needs: No Vision needs: No Meds Allergies Allergy/AdvReac Type Severity Reaction Status Date / Time latex [Latex] Allergy Unknown RASH Verified 06/29/21 09:48 Active Medications: Current Medications Acetaminophen (Acetaminophen 325 Mg Tablet) 650 mg PO Q6H PRN PRN Reason: Pain, Mild (Pain Scale 1-3) Albuterol Sulfate (Albuterol Sulfate 90 Mcg 8 Gm Inhaler) 2 puff INHALE QID PRN PRN Reason: shortness of breath or wheezing Amlodipine Besylate (Amlodipine Besylate 5 Mg Tablet) 5 mg PO DAILY REPLACED BY [facility]; Protocol Last Admin: 07/22/21 04:11 Dose: 5 mg Documented by: Aspirin (Aspirin Enteric Coated 81 Mg Tablet.) 81 mg PO DAILY REPLACED BY [facility] Last Admin: 07/22/21 07:42 Dose: 81 mg Documented by: Dextrose (Dextrose 50 % 25 Gm/50 Ml Syringe) 25 gm IVPUSH Q15M PRN; Protocol PRN Reason: per Hypoglycemia Standing Ord. Enoxaparin Sodium (Enoxaparin Sodium 40 Mg/0.4 Ml Syringe) 40 mg SUBCUT Q24H REPLACED BY [facility] Last Admin: 07/21/21 23:03 Dose: Not Given Documented by: Glucose (Glucose Gel 15 Gm Gel..Gram.) 15 gm PO Q15M PRN; Protocol PRN Reason: per Hypoglycemia Standing Ord. Hydromorphone HCl (Hydromorphone Hcl 1 Mg/Ml Syringe) 0.5 mg IVPUSH Q4H PRN; Protocol PRN Reason: Pain, Severe (Pain Scale 7-10) Last Admin: 07/22/21 02:56 Dose: 0.5 mg Documented by: Insulin Human Lispro (Insulin Lispro 100 Unit/Ml 3 Ml Vial) 0 unit SUBCUT QIDACHS REPLACED BY [facility]; Protocol Last Admin: 07/22/21 07:42 Dose: 2 unit Documented by: Labetalol HCl (Labetalol Hcl 100 Mg Tablet) 100 mg PO BID REPLACED BY [facility]; Protocol Lisinopril (Lisinopril 40 Mg Tablet) 40 mg PO DAILY REPLACED BY [facility]; Protocol Last Admin: 07/22/21 07:45 Dose: 40 mg Documented by: Melatonin (Melatonin 3 Mg Tablet) 6 mg PO BEDTIME PRN PRN Reason: Insomnia Nitroglycerin (Nitroglycerin 0.4 Mg Tab.Subl) 0.4 mg SUBLINGUAL Q5MX3 PRN PRN Reason: Chest Pain Omeprazole (Omeprazole 40 Mg Capsule.Dr) 40 mg PO DAILY@0630 REPLACED BY [facility] Last Admin: 07/22/21 06:24 Dose: 40 mg Documented by: Senna (Sennosides 8.6 Mg Tablet) 17.2 mg PO BEDTIME PRN PRN Reason: Constipation Sodium Chloride (0.9 % Sodium Chloride Flush 3 Ml Syringe) 3 ml IVFLUSH QSHIFT REPLACED BY [facility] Last Admin: 07/22/21 01:46 Dose: Not Given Documented by: Valacyclovir HCl (Valacyclovir Hcl 500 Mg Tablet) 500 mg PO DAILY REPLACED BY [facility] Last Admin: 07/22/21 07:42 Dose: 500 mg Documented by: Vitamin D (Cholecalciferol (Vitamin D3) 25 Mcg Tablet) 125 mcg PO DAILY REPLACED BY [facility] Last Admin: 07/22/21 07:41 Dose: 125 mcg Documented by: Home Medications Medication Instructions Recorded Confirmed Last Taken Type blood sugar diagnostic (Gene #10 ea 09/10/20 06/22/21 Unknown History Lite Strips) amlodipine 5 mg tablet 1 tab PO DAILY 07/21/21 07/21/21 Unknown History valacyclovir 500 mg tablet 1 tab PO DAILY 07/21/21 07/21/21 Unknown History Physical Exam Vital Signs: Vital Signs: Last Vital Signs Temp 98.3 F 07/22/21 05:21 Pulse 80 07/22/21 08:36 Resp 22 H 07/22/21 08:36 BP 141/77 H 07/22/21 08:36 Pulse Ox 97 07/22/21 08:36 BMI result Body Mass Index 36.2 Const: General: comfortable and no acute distress Orienta tion/consciousness: patient oriented x3 HEENT: Other: Unremarkable Head: Yes normal to inspection Neck: Neck: Yes normal visual inspection Chest: Chest palpation & inspection: normal inspection of the chest Resp: Auscultation: clear to auscultation bilaterally Cardio: Palpation: normal PMI Heart sounds: S1 normal heart sound present, S2 normal heart sound present, no gallops, no murmurs and no rubs GI: Palpation (GI): Soft to palpation Back/Spine/Pelvis: Other: unremarkable Skin: General skin exam: no rashes or lesions noted Neuro: General: patient oriented x3 Extrem: General: Yes normal to inspection Psych: Mental Status: mental status grossly normal Objective Labs and Meds Result diagrams: 07/22/21 06:40 07/22/21 06:40 Lab results: Laboratory Results - last 24 hr 07/21/21 07/21/21 07/21/21 18:36 18:36 18:36 WBC 13.7 H RBC 5.01 Hgb 11.1 L Hct 35.6 L MCV 71.1 L MCH 22.2 L MCHC 31.2 RDW 19.0 H Plt Count 299 MPV 11.3 Immature Gran % (Auto) 0.4 Neut % (Auto) 65.6 Lymph % (Auto) 26.3 [place] % (Auto) 5.5 Eos % (Auto) 1.9 Baso % (Auto) 0.3 Lymph # (Auto) 3.6 [place] # (Auto) 0.8 Eos # (Auto) 0.3 Baso # (Auto) 0.0 Abs Immat Gran (auto) 0.06 H Absolute Neuts (auto) 9.0 H Absolute Nucleated RBC 0.000 Nucleated RBC % (auto) 0.0 Smear Tech's Comments VERIFIED D-Dimer High Sensitivty Sodium 136 Potassium 3.8 Chloride 104 Carbon Dioxide 23 Anion Gap 13 BUN 13 Creatinine 0.79 Estim Creat Clear Calc 97.6 Estimated GFR > 60 POC Glucose Random Glucose 304 H Calcium 9.1 Troponin I High Sens 127.6 H* COVID-19 (YANN) COVID-19 Clin Com Influenza Type A (BENITA) Influenza Type B (BENITA) Influenza A & B Note 07/21/21 07/21/21 07/21/21 19:51 19:51 20:47 WBC RBC Hgb Hct MCV MCH MCHC RDW Plt Count MPV Immature Gran % (Auto) Neut % (Auto) Lymph % (Auto) [place] % (Auto) Eos % (Auto) Baso % (Auto) Lymph # (Auto) [place] # (Auto) Eos # (Auto) Baso # (Auto) Abs Immat Gran (auto) Absolute Neuts (auto) Absolute Nucleated RBC Nucleated RBC % (auto) Smear Tech's Comments D-Dimer High Sensitivty Sodium Potassium Chloride Carbon Dioxide Anion Gap BUN Creatinine Estim Creat Clear Calc Estimated GFR POC Glucose Random Glucose Calcium Troponin I High Sens 146.7 H* COVID-19 (YANN) Negative COVID-Valcon Com See Note Influenza Type A (BENITA) Negative Influenza Type B (BENITA) Negative Influenza A & B Note See Note 07/21/21 07/22/21 07/22/21 22:44 04:01 06:40 WBC 12.4 H RBC 4.92 Hgb 10.6 L Hct 35.1 L MCV 71.3 L MCH 21.5 L MCHC 30.2 L RDW 18.8 H Plt Count 284 MPV Not Reportable Immature Gran % (Auto) 0.5 H Neut % (Auto) 59.0 Lymph % (Auto) 31.5 [place] % (Auto) 6.4 Eos % (Auto) 2.3 Baso % (Auto) 0.3 Lymph # (Auto) 3.9 [place] # (Auto) 0.8 Eos # (Auto) 0.3 Baso # (Auto) 0.0 Abs Immat Gran (auto) 0.06 H Absolute Neuts (auto) 7.3 Absolute Nucleated RBC 0.000 Nucleated RBC % (auto) 0.0 Smear Tech's Comments D-Dimer High Sensitivty Sodium Potassium Chloride Carbon Dioxide Anion Gap BUN Creatinine Estim Creat Clear Calc Estimated GFR POC Glucose 154 H Random Glucose Calcium Troponin I High Sens 195.4 H* COVID-19 (YANN) COVID-19 Clin Com Influenza Type A (BENITA) Influenza Type B (BENITA) Influenza A & B Note 07/22/21 07/22/21 07/22/21 06:40 06:40 07:06 WBC RBC Hgb Hct MCV MCH MCHC RDW Plt Count MPV Immature Gran % (Auto) Neut % (Auto) Lymph % (Auto) [place] % (Auto) Eos % (Auto) Baso % (Auto) Lymph # (Auto) [place] # (Auto) Eos # (Auto) Baso # (Auto) Abs Immat Gran (auto) Absolute Neuts (auto) Absolute Nucleated RBC Nucleated RBC % (auto) Smear Tech's Comments D-Dimer High Sensitivty 888 Sodium 135 Potassium 4.2 Chloride 106 Carbon Dioxide 22 Anion Gap 11 L BUN 11 Creatinine 0.71 Estim Creat Clear Calc 108.5 Estimated GFR > 60 POC Glucose 196 H Random Glucose 187 H Calcium 9.1 Troponin I High Sens COVID-19 (YANN) COVID-19 Clin Com Influenza Type A (BENITA) Influenza Type B (BENITA) Influenza A & B Note ECG Interpretation: EKG with sinus tachycardia, 101/Min; left ventricular hypertrophy with repolarization changes. Imaging Radiologist's impression: Impressions Venous Duplex 07/21/21 20:02 IMPRESSION: No DVT demonstrated in the right upper extremity. Assessment and Plan (1) Hypertensive emergency: Status: Acute (2) Chest pain: Status: Acute Plan Pertinent data reviewed. Blood pressure on arrival was 213/104 mm Hg. Latest blood pressure is 141/77 mm Hg. High sensitivity troponins are 127 followed by 146 and 195. Creatinine is 0.71. Cardiac catheterization from this week reported to have normal coronary arteries. Echocardiogram last year with normal LVEF, 55-60%, moderate diastolic dysfunction and mild mitral regurgitation. Overall, likely poorly controlled hypertension causing chest pain and other symptoms like shoulder discomfort, shortness of breath, headaches as well. As cardiac catheterization showed normal coronaries, troponins are likely from the hypertension itself. Will need to review her home medications and optimize them. Currently listed to be on labetalol, lisinopril, amlodipine. Will need to up titrate the doses accordingly. Importance of blood pressure control and consequences if left unattended discussed in detail. She understands. Procedures Date of Service Date of Service: 07/22/21
[2021-07-22] MEDS: Labetalol HCL 100 MG TABLET PO (11:22)
[2021-07-22] MEDS: 0.9 % Sodium Chloride Flush 3 ML SYRINGE IVFLUSH (11:23)
[2021-07-22 11:51] LABS: Glucose, Whole Blood 183 mg/dL (60-115)
--- NOTE | 2021-07-22 11:53 | P.DS_ITS ---
DS: Providers Provider Date of Service: 07/22/21 Date of admission: 07/21/21 21:53 Date of discharge: 07/22/21 Primary care physician: Derrek Hollingsworth MD Consults: 07/21/21 21:53 Consult to Cardiology Routine Consulting Provider: Dieter Owen Reason for consultation: Chest pain; elevated troponins Attending physician on discharge: Nickolas Alonso Discharging clinician: Lorena Oswald DS: Diagnosis Discharge Diagnosis (1) Hypertensive emergency: Status: Acute (2) Chest pain: Status: Acute DS: Summary Hospital Course Hospital Course: From H&P on day of admission 40-year-old female with a past medical history of hypertension, diabetes, asthma, obesity, tobacco dependence, history of EA, HSV presented to the hospital with a chief complaint of chest heaviness.? Patient reports that she has been having chest heaviness and the upper arm heaviness for few months; had stress test as outpatient which was abnormal and subsequently had cardiac catheterization done on 07/20/2021; mentioned that her coronaries were clean and she not have any stent placed.? After she went home the next day morning when she woke up she felt hip denies any her upper extremities and chest heaviness; assist with diaphoresis, lightheadedness; subsequently came to the ER for further evaluation.? At the time of my interview of reports that tap chest heaviness improved.? Denies any nausea vomiting diarrhea.? Denies any fever chills cough or sputum production.? Review of all other systems is negative except mentioned above ER course: Per ER team patient noted to have elevated troponins 127-->146; EKG was nonischemic; discussed with Cardiology Dr. Oewn who suggested admission to the hospital for observation. discharge diagnosis: uncontrolled hypertension/ hypertensive crisis chest pain elevated cardiac enzymes hospital course by problem: uncontrolled HTN. patient presented to the emergency department with chest pain. On arrival, BP was 213/104. Cardiac enzymes were slightly elevated. Cardiac enzymes are elevated baseline but were elevated above baseline on this occasion. EKG was unchanged when compared to previous. She has just had cardiac catheterization 07/20 which showed normal coronary arteries. She was seen in consultation by Cardiology who felt the elevation in cardiac enzymes and chest pain were likely secondary to uncontrolled hypertension. Her dose of Norvasc was increased from 5 mg daily to 10 mg daily. Her blood pressure has improved at this time. Her chest pain has improved. No further inpatient workup is required at this time. She should call to schedule a follow-up appointment with her PCP for close blood pressure monitoring. Time Spent with Patient Time attestation: Total time spent providing and/or coordinating discharge services: Discharge coordination time: Greater than 30 minutes Quality: Safe Use of Opioids Does Pt have an Active Cancer Diagnosis on the Problem List?: No Quality: Stroke Does the patient have a stroke diagnosis?: No Physical Exam Vital Signs: Vital Signs: Last Vital Signs Temp 98.3 F 07/22/21 05:21 Pulse 80 07/22/21 08:36 Resp 22 H 07/22/21 08:36 BP 141/77 H 07/22/21 08:36 Pulse Ox 97 07/22/21 08:36 BMI result Body Mass Index 36.2 Const: General: cooperative, comfortable, no acute distress, alert and awake Nutritional Appearance: overweight Orientation/consciousness: patient oriented x3 Eyes: Sclerae: sclerae normal Pupils: Equal, round and reactive pupils present Resp: Effort & Inspection: normal respiratory effort Auscultation: clear to auscultation bilaterally Cardio: Rate: regular rate GI: Palpation (GI): Soft to palpation and nontender Neuro: General: patient oriented x3 Cranial nerves: Yes Equal, round and reactive pupils present Extrem: General: Yes no pedal edema DS: Data Data Completed and Pending Labs on day of discharge: Laboratory Results - last 24 hr 07/21/21 07/21/21 07/21/21 18:36 18:36 18:36 WBC 13.7 H RBC 5.01 Hgb 11.1 L Hct 35.6 L MCV 71.1 L MCH 22.2 L MCHC 31.2 RDW 19.0 H Plt Count 299 MPV 11.3 Immature Gran % (Auto) 0.4 Neut % (Auto) 65.6 Lymph % (Auto) 26.3 [place] % (Auto) 5.5 Eos % (Auto) 1.9 Baso % (Auto) 0.3 Lymph # (Auto) 3.6 [place] # (Auto) 0.8 Eos # (Auto) 0.3 Baso # (Auto) 0.0 Abs Immat Gran (auto) 0.06 H Absolute Neuts (auto) 9.0 H Absolute Nucleated RBC 0.000 Nucleated RBC % (auto) 0.0 Smear Tech's Comments VERIFIED D-Dimer High Sensitivty Sodium 136 Potassium 3.8 Chloride 104 Carbon Dioxide 23 Anion Gap 13 BUN 13 Creatinine 0.79 Estim Creat Clear Calc 97.6 Estimated GFR > 60 POC Glucose Random Glucose 304 H Calcium 9.1 Troponin I High Sens 127.6 H* COVID-19 (YANN) COVID-19 Clin Com Influenza Type A (BENITA) Influenza Type B (BENITA) Influenza A & B Note 07/21/21 07/21/21 07/21/21 19:51 19:51 20:47 WBC RBC Hgb Hct MCV MCH MCHC RDW Plt Count MPV Immature Gran % (Auto) Neut % (Auto) Lymph % (Auto) [place] % (Auto) Eos % (Auto) Baso % (Auto) Lymph # (Auto) [place] # (Auto) Eos # (Auto) Baso # (Auto) Abs Immat Gran (auto) Absolute Neuts (auto) Absolute Nucleated RBC Nucleated RBC % (auto) Smear Tech's Comments D-Dimer High Sensitivty Sodium Potassium Chloride Carbon Dioxide Anion Gap BUN Creatinine Estim Creat Clear Calc Estimated GFR POC Glucose Random Glucose Calcium Troponin I High Sens 146.7 H* COVID-19 (YANN) Negative COVID-19 Clin Com See Note Influenza Type A (BENITA) Negative Influenza Type B (BENITA) Negative Influenza A & B Note See Note 07/21/21 07/22/21 07/22/21 22:44 04:01 06:40 WBC 12.4 H RBC 4.92 Hgb 10.6 L Hct 35.1 L MCV 71.3 L MCH 21.5 L MCHC 30.2 L RDW 18.8 H Plt Count 284 MPV Not Reportable Immature Gran % (Auto) 0.5 H Neut % (Auto) 59.0 Lymph % (Auto) 31.5 [place] % (Auto) 6.4 Eos % (Auto) 2.3 Baso % (Auto) 0.3 Lymph # (Auto) 3.9 [place] # (Auto) 0.8 Eos # (Auto) 0.3 Baso # (Auto) 0.0 Abs Immat Gran (auto) 0.06 H Absolute Neuts (auto) 7.3 Absolute Nucleated RBC 0.000 Nucleated RBC % (auto) 0.0 Smear Tech's Comments D-Dimer High Sensitivty Sodium Potassium Chloride Carbon Dioxide Anion Gap BUN Creatinine Estim Creat Clear Calc Estimated GFR POC Glucose 154 H Random Glucose Calcium Troponin I High Sens 195.4 H* COVID-19 (YANN) COVID-19 Clin Com Influenza Type A (BENITA) Influenza Type B (BENITA) Influenza A & B Note 07/22/21 07/22/21 07/22/21 06:40 06:40 07:06 WBC RBC Hgb Hct MCV MCH MCHC RDW Plt Count MPV Immature Gran % (Auto) Neut % (Auto) Lymph % (Auto) [place] % (Auto) Eos % (Auto) Baso % (Auto) Lymph # (Auto) [place] # (Auto) Eos # (Auto) Baso # (Auto) Abs Immat Gran (auto) Absolute Neuts (auto) Absolute Nucleated RBC Nucleated RBC % (auto) Smear Tech's Comments D-Dimer High Sensitivty 888 Sodium 135 Potassium 4.2 Chloride 106 Carbon Dioxide 22 Anion Gap 11 L BUN 11 Creatinine 0.71 Estim Creat Clear Calc 108.5 Estimated GFR > 60 POC Glucose 196 H Random Glucose 187 H Calcium 9.1 Troponin I High Sens COVID-19 (YANN) COVID-19 Clin Com Influenza Type A (BENITA) Influenza Type B (BENITA) Influenza A & B Note 07/22/21 11:38 WBC RBC Hgb Hct MCV MCH MCHC RDW Plt Count MPV Immature Gran % (Auto) Neut % (Auto) Lymph % (Auto) [place] % (Auto) Eos % (Auto) Baso % (Auto) Lymph # (Auto) [place] # (Auto) Eos # (Auto) Baso # (Auto) Abs Immat Gran (auto) Absolute Neuts (auto) Absolute Nucleated RBC Nucleated RBC % (auto) Smear Tech's Comments D-Dimer High Sensitivty Sodium Potassium Chloride Carbon Dioxide Anion Gap BUN Creatinine Estim Creat Clear Calc Estimated GFR POC Glucose 183 H Random Glucose Calcium Troponin I High Sens COVID-19 (YANN) COVID-19 Clin Com Influenza Type A (BENITA) Influenza Type B (BENITA) Influenza A & B Note Discharge Plan Discharge Patient Disposition: Home, Self-Care Discharge Diagnosis: uncontrolled hypertension chest pain elevated troponin Referrals: Derrek Hollingsworth MD [Primary Care Provider] - 1 Week Discharge Medications: New amlodipine 10 mg Tablet 10 mg PO DAILY 30 Days Qty: 30 0RF Protocol: Hold for SBP< HOLD for SBP < : 90 Continued albuterol sulfate 90 mcg/actuation HFA aerosol inhaler 2 inh inhalation QID PRN (Reason: shortness of breath or wheezing) Qty: 8.5 8RF valacyclovir 500 mg tablet 1 tab PO DAILY 0RF labetalol 100 mg tablet 100 mg PO BID Qty: 60 8RF Protocol: Hold for SBP/HR < HOLD for SBP < : 90 HOLD for HR < : 60 aspirin 81 mg tablet,delayed release (DR/EC) 81 mg PO DAILY Qty: 81 8RF cholecalciferol (vitamin D3) 125 mcg (5,000 unit) capsule 125 mcg PO DAILY Qty: 30 2RF omeprazole 40 mg capsule,delayed release(DR/EC) 40 mg PO DAILY Qty: 14 0RF lisinopril 40 mg tablet 40 mg PO DAILY Qty: 90 3RF Discontinued amlodipine 5 mg tablet 1 tab PO DAILY 0RF No Action (DME) nebulizers Misc See Rx Instructions .Route Qty: 1 0RF Rx Instructions: to use every 4 hours as needed for wheezing (DME) blood-glucose meter [FreeStyle [place]] Kit See Rx Instructions .ROUTE .MEDSUPPLY Qty: 1 0RF Rx Instructions: As directed (DME) lancets [FreeStyle Lancets] 28 gauge misc See Rx Instructions .ROUTE .MEDSUPPLY Qty: 100 0RF Rx Instructions: As directed (DME) FreeStyle Lite Strips Strip See Rx Instructions .ROUTE .MEDSUPPLY Qty: 10 0RF Rx Instructions: As directed (DME) lancets 18 gauge misc See Rx Instructions .ROUTE .MEDSUPPLY Qty: 100 8RF Rx Instructions: As directed Discharge Orders: Discharge Order (Routine); Ordered 07/22/21 Ordered By: Lorena Oswald Activity on Discharge: As tolerated Stand Alone Forms: Patient Portal Discharge page Care Plan Goals: see below Health Concerns: Uncontrolled hypertension chest pain Plan of Treatment: chest pain is likely a result of elevated blood pressure your dose of Norvasc (amlodipine) has been increased from 5mg to 10 mg daily please take all medications as prescribed call to schedule follow up appointment with your PCP for close blood pressure monitoring Assessment: see discharge summary Discharge Date/Time: 07/22/21 14:02
--- NOTE | 2021-07-22 13:22 | MHC.CM.PN ---
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
== END 2021-07-22 14:02 | disposition home or self-care (01) ==
LOC: HO.ED 21:56 → HO.EDOVER 22:15
PROVIDERS: Admitting Provider Hospitalist; Emergency Provider Emergency Medicine; PCP Internal Medicine; Visit Provider Physician Assistant Medical
DX: I16.1 Hypertensive emergency (principal); R07.89 Other chest pain; R77.8 Other specified abnormalities of plasma proteins; R00.0 Tachycardia, unspecified; E11.9 Type 2 diabetes mellitus without complications; I11.0 Hypertensive heart disease with heart failure; E66.9 Obesity, unspecified; J45.909 Unspecified asthma, uncomplicated; K21.9 Gastro-esophageal reflux disease without esophagitis; F17.210 Nicotine dependence, cigarettes, uncomplicated; Z68.36 Body mass index [BMI] 36.0-36.9, adult; Z20.822 Contact with and (suspected) exposure to COVID-19; Z98.890 Other specified postprocedural states; Z91.040 Latex allergy status; Z79.82 Long term (current) use of aspirin; Z79.4 Long term (current) use of insulin; Z79.899 Other long term (current) drug therapy
CPT/HCPCS: 36415; 80048; 82947; 84484; 85025; 85379; 87502; 87635; 93005; 93971; 96361; 96372; 96374; 99215; 99219; 99285; J1170

== ENCOUNTER 2021-07-27 18:14 | Outpatient (REF) | payer OTHER, SELFPAY | END 2021-07-27 18:15 | disposition home or self-care (01) | LOC: HO.LNP 18:14 | PROVIDERS: Visit Provider Physician Assistant | DX: R32 Unspecified urinary incontinence (principal); R20.2 Paresthesia of skin | CPT/HCPCS: 87086; 87147 ==

== ENCOUNTER → 2021-08-03 14:24 | Outpatient (BNVA) | payer OTHER, SELFPAY | PROVIDERS: PCP Internal Medicine; Referring Provider Internal Medicine; Visit Provider Nurse Practitioner Family | DX: R07.2 Precordial pain (principal); R94.31 Abnormal electrocardiogram [ECG] [EKG]; I51.7 Cardiomegaly; I10 Essential (primary) hypertension; Z98.890 Other specified postprocedural states | CPT/HCPCS: 99212 ==

== ENCOUNTER → 2021-08-30 09:12 | Outpatient (BNVA) | payer OTHER, SELFPAY | PROVIDERS: PCP Internal Medicine; Visit Provider Internal Medicine Rheumatology | DX: R20.0 Anesthesia of skin (principal); M79.641 Pain in right hand; M79.642 Pain in left hand; D64.9 Anemia, unspecified | CPT/HCPCS: 99202 ==

== ENCOUNTER 2021-08-31 10:09 | Outpatient (REF) | payer OTHER, SELFPAY ==
[2021-08-31 10:25] LABS: MANUAL DIFF FLAG NO
[2021-08-31 11:52] LABS: Basophils Absolute Auto 0.1 X10*3/uL (0.0-0.2); Basophils Percent Auto 0.4 % (0-2); Eosinophils Absolute Auto 0.4 X10*3/uL (0.0-0.4); Hematocrit 38.4 % (37.0-47.0); Hemoglobin 11.5 g/dl (12.0-16.0); Imm Gran Abs Auto 0.08 X10*3/uL (0.00-0.03); Imm Gran Pct Auto 0.7 % (0.0-0.4); Lymphocytes Absolute Auto 3.1 X10*3/uL (1.2-4.9); Lymphocytes Percent Auto 26.5 % (20-40); Mean Corpuscular HGB Conc 29.9 g/dl (31.0-35.0); Mean Corpuscular Hemoglobin 21.6 pg (27.0-33.0); Mean Platelet Volume 11.1 fL (9.4-12.3); Monocytes Absolute Auto 0.7 X10*3/uL (0.1-1.2); Monocytes Percent Auto 5.8 % (2-11); Neutrophils Absolute Auto 7.5 x10*3/uL (2.0-8.3); Neutrophils Percent Auto 63.6 % (45-73); Platelet Count 309 X10*3/uL (160-400); Red Blood Count 5.33 X10*6/uL (4.20-5.50); Red Cell Distribution Width 18.3 % (11.0-16.0); White Blood Count 11.8 X10*3/uL (4.8-10.8)
[2021-08-31 12:16] LABS: Iron 36 mcg/dL (30-160); Percent Iron Saturation 8 % (15-50); Rheumatoid Factor < 15.0 IU/mL (<15.0); Total Iron Binding Capacity 424 mcg/dL (228-428); Unsaturated Iron Binding 388 ug/dL
[2021-08-31 12:27] LABS: Thyroid Stimulating Hormone 0.95 uIU/mL (0.32-4.0)
[2021-08-31 12:35] LABS: Vitamin B12 499 pg/mL (200-900)
[2021-09-02 21:23] LABS: Cyclic Citrullinated Peptide <16 UNITS
[2021-09-06 11:22] LABS: ANA Pattern 2 Nuclear, Speckled; Anti Nuclear Antibody Pattern Mitotic, NuMA-like; Anti Nuclear Antibody Screen POSITIVE (NEGATIVE)
== END 2021-08-31 10:10 | disposition home or self-care (01) ==
LOC: HO.LAB 10:09
PROVIDERS: PCP Internal Medicine; Visit Provider Internal Medicine Rheumatology
DX: D64.9 Anemia, unspecified (principal); M79.641 Pain in right hand; M79.642 Pain in left hand
CPT/HCPCS: 36415; 82607; 83540; 84443; 85025; 86038; 86039; 86200; 86431

== ENCOUNTER 2021-09-23 11:20 | Outpatient (REF) | payer OTHER, SELFPAY ==
--- NOTE | ~2021-09-23 | XR_ITS ---
EXAMINATION: BILATERAL HAND CLINICAL INFORMATION: Pain. COMPARISON: None TECHNIQUE: 4 views each hand FINDINGS: Right hand: There is no visible acute fracture, dislocation or subluxation seen. No bony erosive changes. The soft tissues are normal. Left hand: There is no bony erosive changes, fracture or dislocation. The soft tissues are normal. XR/XR hand RT min 3V IMPRESSION: Unremarkable bilateral hand exam.
--- NOTE | ~2021-09-23 | XR_ITS ---
EXAMINATION: BILATERAL HAND CLINICAL INFORMATION: Pain. COMPARISON: None TECHNIQUE: 4 views each hand FINDINGS: Right hand: There is no visible acute fracture, dislocation or subluxation seen. No bony erosive changes. The soft tissues are normal. Left hand: There is no bony erosive changes, fracture or dislocation. The soft tissues are normal. XR/XR hand LT min 3V IMPRESSION: Unremarkable bilateral hand exam.
[2021-09-23 11:31] LABS: MANUAL DIFF FLAG NO
[2021-09-23 12:15] LABS: Basophils Absolute Auto 0.1 X10*3/uL (0.0-0.2); Basophils Percent Auto 0.4 % (0-2); Eosinophils Absolute Auto 0.3 X10*3/uL (0.0-0.4); Eosinophils Percent Auto 2.2 % (0-4); Hematocrit 38.2 % (37.0-47.0); Hemoglobin 11.8 g/dl (12.0-16.0); Imm Gran Abs Auto 0.05 X10*3/uL (0.00-0.03); Imm Gran Pct Auto 0.4 % (0.0-0.4); Lymphocytes Absolute Auto 3.2 X10*3/uL (1.2-4.9); Lymphocytes Percent Auto 28.5 % (20-40); Mean Corpuscular HGB Conc 30.9 g/dl (31.0-35.0); Mean Corpuscular Hemoglobin 22.2 pg (27.0-33.0); Mean Corpuscular Volume 71.8 fL (80.0-98.0); Mean Platelet Volume 11.2 fL (9.4-12.3); Monocytes Absolute Auto 0.7 X10*3/uL (0.1-1.2); Monocytes Percent Auto 6.2 % (2-11); Neutrophils Absolute Auto 7.1 x10*3/uL (2.0-8.3); Neutrophils Percent Auto 62.3 % (45-73); Platelet Count 306 X10*3/uL (160-400); Red Blood Count 5.32 X10*6/uL (4.20-5.50); Red Cell Distribution Width 17.8 % (11.0-16.0); White Blood Count 11.4 X10*3/uL (4.8-10.8)
[2021-09-23 13:02] LABS: Erythrocyte Sedimentation Rate 17 MM/HR (0-20)
[2021-09-23 14:36] LABS: C Reactive Protein 1.93 mg/dL (< or = 0.50); Estimated Glomerular Filt Rate 56
[2021-09-25 08:27] LABS: Anti DNA DS Antibody <1 IU/mL; SM/Ribonucleoprotein Ab <1.0 NEG AI (<1.0 NEG); Smith Protein <1.0 NEG AI (<1.0 NEG)
== END 2021-09-23 11:21 | disposition home or self-care (01) ==
LOC: HO.LAB 11:20
PROVIDERS: Visit Provider Internal Medicine Rheumatology
DX: D64.9 Anemia, unspecified (principal); R76.8 Other specified abnormal immunological findings in serum; M79.641 Pain in right hand; M79.642 Pain in left hand
CPT/HCPCS: 36415; 73130; 82565; 85025; 85652; 86140; 86225; 86235

== ENCOUNTER 2021-11-15 15:19 | Emergency (ER) | payer OTHER, SELFPAY ==
[2021-11-15 15:43] VITALS: BP 192/86; PULSE 97; RESP 18; TEMP 36.6; O2SAT 98; BMI 35.3
== END 2021-11-15 18:51 | disposition left against medical advice (07) ==
PROVIDERS: Emergency Provider Emergency Medicine; PCP Internal Medicine
DX: S39.92XA Unspecified injury of lower back, initial encounter (principal); X50.1XXA Overexertion from prolonged static or awkward postures, initial encounter; Y93.H3 Activity, building and construction; Y92.538 Other ambulatory health services establishments as the place of occurrence of the external cause; Y99.0 Civilian activity done for income or pay
CPT/HCPCS: 99281

== ENCOUNTER 2021-11-18 13:48 | Emergency (ER) | payer OTHER, SELFPAY ==
--- NOTE | ~2021-11-18 | XR_ITS ---
EXAMINATION: XR HIP, RIGHT, PELVIS CLINICAL INFORMATION: Right hip injury at work with pain. COMPARISON: None TECHNIQUE: Two views of the right hip along with a PA view of the pelvis. FINDINGS: Bones and soft tissues are normal. No fracture. Alignment is anatomic. Hip joint space is maintained. XR/XR hip RT w PEL1V IMPRESSION: Unremarkable right hip/pelvis.
--- NOTE | ~2021-11-18 | XR_ITS ---
EXAMINATION: XR LUMBOSACRAL SPINE CLINICAL INFORMATION: Back injury at work. Back pain COMPARISON: None TECHNIQUE: Three views of the lumbosacral spine. FINDINGS: Normal alignment of the lumbar spine. No subluxation. Vertebral body heights are maintained. No acute fracture. Mild disc degenerative change at L4-L5 with mild endplate sclerosis and endplate proliferative change. Intervertebral disc heights are maintained. No pars defects are seen. Surgical clips in the right upper quadrant compatible with prior cholecystectomy. XR/XR lumbar spine 2-3V IMPRESSION: 1. No subluxation or fracture. 2. Mild degenerative disc disease at L4-L5.
[2021-11-18 14:00] VITALS: BP 201/95; PULSE 108; RESP 18; O2SAT 100; BMI 34.7
--- NOTE | 2021-11-18 17:14 | ED_ITS ---
HPI - Back Pain/Injury General Chief Complaint: Back Pain/Injury Stated Complaint: low back and r side inj at work Time Seen by Provider: 11/18/21 17:12 Source: patient Mode of arrival: ambulatory Limitations: no limitations History of Present Illness HPI Narrative: 41 yo female came in for evaluation of back and right hip pain. patient works as [employer] while at work last week patient was bending lost balance and slipped down her right leg, patient was able to hold herself from completely falling, pateint felt a pop in her back and immediately felt back pain, since then patient been having a progressively worsening for low back pain and right hip pain, able to ambulate with difficulty, patient was seen and evaluated at a different hospital was prescribed muscle relaxant which is not helping her symptoms, decline urinary or stool incontinence, no numbness or weakness, patient decline any chance of being today and welling to take the xrays without test. found to be hyertensive in the ED patient with history of hypertension and compliant with her medication. Related Data Home Medications Medication Instructions Recorded Confirmed valacyclovir 500 mg tablet 1 tab PO DAILY 07/21/21 08/30/21 Previous Rx's Medication Instructions Recorded blood-glucose meter (TransaqStyle #1 ea 09/05/20 [place] kit) labetalol 100 mg tablet 100 mg PO BID #60 tabs 09/10/20 aspirin 81 mg tablet,delayed 81 mg PO DAILY #81 tabs 01/22/21 release cholecalciferol (vitamin D3) 125 125 mcg PO DAILY #30 caps 02/26/21 mcg (5,000 unit) capsule omeprazole 40 mg capsule,delayed 40 mg PO DAILY #14 caps 02/26/21 release albuterol sulfate 90 mcg/actuation 2 inh inhalation QID PRN shortness 04/26/21 aerosol inhaler of breath or wheezing #8.5 grams nebulizers #1 ea 06/17/21 lisinopril 40 mg tablet 40 mg PO DAILY #90 tabs 06/22/21 amlodipine 10 mg tablet 10 mg PO DAILY 30 days #30 tabs 07/22/21 gabapentin 300 mg capsule 300 mg PO BEDTIME 14 days #14 caps 07/27/21 blood pressure monitor #1 ea 08/03/21 blood sugar diagnostic (FreeStyle #100 ea 09/13/21 Lite Strips) lancets 28 gauge (FreeStyle #100 ea 09/28/21 Lancets) hydrochlorothiazide 12.5 mg tablet 12.5 mg PO DAILY #30 tabs 10/26/21 oxycodone 5 mg tablet 5 mg PO Q8H PRN pain #14 tabs 11/18/21 Allergies Allergy/AdvReac Type Severity Reaction Status Date / Time Iodinated Contrast Media Allergy Intermediate Anaphylaxis Verified 11/15/21 15:43 latex [Latex] Allergy Unknown RASH Verified 11/15/21 15:43 Review of Systems Review of Systems: All other systems are reviewed and are negative Constitutional: Reports as per HPI and Reports no additional constitutional complaints Eyes: Reports as per HPI and Reports no additional eye complaints Reports system reviewed and no additional complaints, except as documented Cardiovascular: Reports as per HPI and Reports no additional cardiovascular complaints Respiratory: Reports as per HPI and Reports no additional respiratory complaints Gastrointestinal: Reports as per HPI and Reports no additional gastrointestinal complaints Genitourinary: Reports no additional female genitourinary complaints Musculoskeletal: Reports no additional musculoskeletal complaints Skin/Breast: Reports system reviewed and no additional complaints, except as docu Psychiatric: Reports no additional psychiatric complaints Endocrine: Reports no additional endocrine complaints Hematologic/Lymphatic: Reports no additional hematologic/lymphatic complaints Allergic/Immunologic: Reports no additional allergic/immunologic complaints Reports system reviewed and no additional complaints, except as documented and Reports Abnormal speech present [facility] Past Medical History Medical History Anemia Asthma Bilateral hand numbness Bilateral hand pain Diabetes mellitus DJD (degenerative joint disease) GERD (gastroesophageal reflux disease) HSV (herpes simplex virus) infection HTN (hypertension) Obesity Smoking TIA (transient ischemic attack) Surgical History H/O cardiac catheterization Hx of appendectomy Hx of section Hx of cholecystectomy Hx of tubal ligation Family History Family History Mother Heart disease Diabetes Hypertension Hyperlipidemia Fibromyalgia Father No problems noted. Brother No problems noted. Brother No problems noted. Brother No problems noted. Sister Deep vein thrombosis Son No problems noted. Son No problems noted. Daughter Hypertension Daughter No problems noted. Maternal Aunt History of breast cancer Social History Social History Household Members: Children Housing: Apartment Do you presently have visiting nurse or other home services: No Alcohol intake: former Patient Tobacco Use Status: Former Tobacco user (6 weeks ago) Tobacco use type: Cigarette Cigarettes Per Day: 3 e-Cigarette/Vaping Use: Never Used Second Hand Smoke Exposure: Yes Advance Directives: No Advance Directives Information Provided: No service: No Current occupational status: employed Cognitive needs: No Hearing needs: No Vision needs: Yes (glasses) Physical Exam Vital Signs: Vital Signs: Last Vital Signs Pulse 108 H 11/18/21 14:00 Resp 18 11/18/21 14:00 BP 190/103 H 11/18/21 19:01 Pulse Ox 100 11/18/21 14:00 BMI result Body Mass Index 34.7 vital signs have been reviewed as appeared to be correct. Blood pressure Elevated. Heart rate normal. Respiration rate normal. Temperature normal. Oxygen saturation normal. Appearance: Alert. Oriented X3. No acute distress. Head: Normal external exam. Normocephalic. Atraumatic. No Sandoval signs noted. No raccoon eyes noted Eyes: PERRLA. EOMI. Conjunctiva and sclera normal. Eyelids normal. ENT: TM's Normal. Pharynx normal. Uvula midline. Moist mucous membranes. No trismus noted. No drooling noted. No muffled voice noted. Neck: Normal inspection. Neck supple. FROM. No adenopathy. Thyroid Normal. No meningeal signs. No neck mass noted. CVS: Normal heart rate and rhythm. Heart sound normal. No murmurs noted. Pulses normal throughout. Respiratory: No respiratory distress. Painless inspiration. Breath sounds no rmal. No wheezes/rales/rhonchi noted. Chest nontender. No accessory muscle usage noted or decreased air movement noted. Abdomen: Soft and nontender. Bowel sounds normal in all 4 quadrants. No disten tion noted. No organomegaly noted. No visible injury noted. Back: midline lumbar spine tenderness no step-off, no deformity.. Skin: Skin warm and dry. Normal skin color. Normal skin turgor. No rashes/lesions/lacerations noted. Extremities: No lower extremity edema. Extremities exhibit normal range of motion. Extremities nontender. Neuro: Oriented X 3. Cranial nerve exam: II-XII are grossly intact , perianal sensation is intact. No motor deficit. No sensory deficit. Reflexes normal. Course Course Course Narrative: 41-year-old female came in with low back pain and right hip pain after had the low back injury at work, negative radiographic study for fracture dislocation, discharge the patient with oxycodone and bedrest for 2 days. Reevaluation(s) Reevaluation #1: bp reading still high, patient remained asymptomatic no headache, no blurry vision, high blood pressure is likely secondary to pain, patient was instructed to montor her bp at home and report to her PCP for further management. Time: 19:26 Discharge Plan Discharge Clinical Impression: HTN (hypertension), Strain of lumbar region Patient Disposition: Home, Self-Care Instructions: Low Back Strain (ED) Additional Instructions: Refrain from strenuous exercise, lifting, bending. Rest for 2 days. Prescriptions: New oxycodone 5 mg tablet 5 mg PO Q8H PRN (Reason: pain) Qty: 14 0RF Rx Instructions: Partial Fill upon patient request. No Action albuterol sulfate 90 mcg/actuation HFA aerosol inhaler 2 inh inhalation QID PRN (Reason: shortness of breath or wheezing) Qty: 8.5 8RF (DME) nebulizers Misc See Rx Instructions .Route Qty: 1 0RF Rx Instructions: to use every 4 hours as needed for wheezing (DME) FreeStyle Lite Strips Strip See Rx Instructions .ROUTE .MEDSUPPLY Qty: 100 7RF Rx Instructions: BID As directed (DME) lancets [FreeStyle Lancets] 28 gauge misc See Rx Instructions .ROUTE .MEDSUPPLY Qty: 100 7RF Rx Instructions: BID As directed hydrochlorothiazide 12.5 mg tablet 12.5 mg PO DAILY Qty: 30 1RF (DME) blood-glucose meter [FreeStyle [place]] Kit See Rx Instructions .ROUTE .MEDSUPPLY Qty: 1 0RF Rx Instructions: As directed valacyclovir 500 mg tablet 1 tab PO DAILY amlodipine 10 mg Tablet 10 mg PO DAILY 30 Days Qty: 30 0RF Protocol: Hold for SBP< HOLD for SBP < : 90 labetalol 100 mg tablet 100 mg PO BID Qty: 60 8RF Protocol: Hold for SBP/HR < HOLD for SBP < : 90 HOLD for HR < : 60 aspirin 81 mg tablet,delayed release (DR/EC) 81 mg PO DAILY Qty: 81 8RF gabapentin 300 mg capsule 300 mg PO BEDTIME 14 Days Qty: 14 0RF cholecalciferol (vitamin D3) 125 mcg (5,000 unit) capsule 125 mcg PO DAILY Qty: 30 2RF omeprazole 40 mg capsule,delayed release(DR/EC) 40 mg PO DAILY Qty: 14 0RF lisinopril 40 mg tablet 40 mg PO DAILY Qty: 90 3RF (DME) blood pressure monitor Kit See Rx Instructions .Route Qty: 1 0RF Rx Instructions: As directed Referrals: Derrek Hollingsworth MD [Primary Care Provider] -
[2021-11-18] MEDS: Ibuprofen 600 MG TABLET PO (17:36)
[2021-11-18] MEDS: oxyCODONE HCl Immed Release 5 MG TABLET PO (17:37)
[2021-11-18 19:01] VITALS: BP 190/103
== END 2021-11-18 19:35 | disposition home or self-care (01) ==
PROVIDERS: Emergency Provider Emergency Medicine; PCP Internal Medicine
DX: S39.012A Strain of muscle, fascia and tendon of lower back, initial encounter (principal); X50.1XXA Overexertion from prolonged static or awkward postures, initial encounter; I10 Essential (primary) hypertension; E11.9 Type 2 diabetes mellitus without complications; F17.210 Nicotine dependence, cigarettes, uncomplicated; E66.9 Obesity, unspecified; Z68.34 Body mass index [BMI] 34.0-34.9, adult; Z79.899 Other long term (current) drug therapy; Y93.F9 Activity, other caregiving; Y92.538 Other ambulatory health services establishments as the place of occurrence of the external cause; Y99.0 Civilian activity done for income or pay
CPT/HCPCS: 72100; 73502; 99283

== ENCOUNTER 2021-12-10 11:48 | Outpatient (REF) | payer OTHER, SELFPAY ==
[2021-12-10 13:14] LABS: Anion Gap 19 (12-20); Blood Urea Nitrogen 8 mg/dL (9-16); Calcium 9.3 mg/dL (8.4-10.2); Carbon Dioxide 24 mmol/L (22-29); Chloride 94 mmol/L (96-108); Estimated Glomerular Filt Rate 49; Potassium 3.5 mmol/L (3.3-5.1); Sodium 133 mmol/L (135-145)
[2021-12-10 13:17] LABS: Hematocrit 40.3 % (37.0-47.0); Hemoglobin 12.2 g/dl (12.0-16.0); Mean Corpuscular HGB Conc 30.3 g/dl (31.0-35.0); Mean Corpuscular Hemoglobin 21.8 pg (27.0-33.0); Platelet Count 270 X10*3/uL (160-400); White Blood Count 12.2 X10*3/uL (4.8-10.8)
[2021-12-10 13:18] LABS: PLT ABN DIST 1
[2021-12-10 13:49] LABS: Glucose Random 438 mg/dL (60-115)
[2021-12-10 14:37] LABS: Creatinine Urine 145.58 mg/dL; Protein/Creatinine Ratio, Ur 1.27 (<0.2); Total Protein Urine Random 185 mg/dL (<12)
== END 2021-12-10 11:49 | disposition home or self-care (01) ==
LOC: HO.LAB 11:48
PROVIDERS: Internal Medicine; Internal Medicine Rheumatology; PCP Internal Medicine; Visit Provider Internal Medicine
DX: N39.0 Urinary tract infection, site not specified (principal); D64.9 Anemia, unspecified; R76.8 Other specified abnormal immunological findings in serum; I10 Essential (primary) hypertension
CPT/HCPCS: 36415; 80048; 84156; 85027; 87086

== ENCOUNTER 2021-12-14 11:19 | Outpatient (REF) | payer OTHER, SELFPAY | END 2021-12-14 11:20 | disposition home or self-care (01) | LOC: HO.US 11:19 | PROVIDERS: Visit Provider Advanced Practice Midwife | DX: Z13.89 Encounter for screening for other disorder (principal) ==

== ENCOUNTER 2022-01-14 11:33 | Emergency (ER) | payer OTHER, SELFPAY ==
[2022-01-14 11:35] VITALS: BP 182/104; PULSE 104; RESP 18; TEMP 36.6; O2SAT 97; BMI 36.2
--- NOTE | 2022-01-14 11:38 | ECG_ITS ---
Test Reason : malaise Blood Pressure : / mmHG Vent. Rate : 099 BPM Atrial Rate : 099 BPM P-R Int : 158 ms QRS Dur : 086 ms QT Int : 378 ms P-R-T Axes : 059 -19 151 degrees QTc Int : 485 ms Sinus rhythm with occasional Premature ventricular complexes Moderate voltage criteria for LVH, may be normal variant ( R in aVL , Neptali product ) Marked ST abnormality, possible lateral subendocardial injury Possible Left atrial enlargement Left anterior fascicular block Intra-ventricular conduction delay Abnormal ECG When compared with ECG of 21-JUL-2021 18:19, Premature ventricular complexes are now Present Left anterior fascicular block is new Referred By: Generic ED Physician Electronically Signed By:BERTA CARDONA MD
[2022-01-14 12:09] LABS: MANUAL DIFF FLAG NO
[2022-01-14 12:14] LABS: Appearance Urine Clear; Color Urine Yellow; Glucose Urine UA >=1000 mg/dL (Negative); Leukocyte Esterase Urine Negative (Negative); Nitrite Urine Negative (Negative); Specific Gravity - Urine >= 1.030 (1.005-1.025); UMIC TRIGGER UACC YES; Urine Blood Moderate (2+) (Negative); Urine Ketones Negative (Negative); Urine Protein 30 (1+) mg/dL (Neg-Trace)
[2022-01-14 12:15] LABS: Basophils Absolute Auto 0.1 X10*3/uL (0.0-0.2); Basophils Percent Auto 0.4 % (0-2); Eosinophils Absolute Auto 0.3 X10*3/uL (0.0-0.4); Eosinophils Percent Auto 2.3 % (0-4); Hemoglobin 11.7 g/dl (12.0-16.0); Imm Gran Abs Auto 0.06 X10*3/uL (0.00-0.03); Imm Gran Pct Auto 0.5 % (0.0-0.4); Lymphocytes Absolute Auto 3.4 X10*3/uL (1.2-4.9); Mean Corpuscular HGB Conc 31.6 g/dl (31.0-35.0); Mean Corpuscular Hemoglobin 22.5 pg (27.0-33.0); Mean Platelet Volume 11.2 fL (9.4-12.3); Monocytes Absolute Auto 0.5 X10*3/uL (0.1-1.2); Monocytes Percent Auto 4.8 % (2-11); Platelet Count 278 X10*3/uL (160-400); Red Blood Count 5.21 X10*6/uL (4.20-5.50); White Blood Count 11.3 X10*3/uL (4.8-10.8)
[2022-01-14 12:26] LABS: COVID-19 Test Negative (Negative); Ethanol < 10 mg/dL
[2022-01-14 12:32] LABS: Alanine Aminotransferase 13 U/L (0-31); Albumin Level 3.8 g/dL (3.5-5.0); Alkaline Phosphatase 108 U/L (39-117); Anion Gap 15 (12-20); Aspartate Amino Transferase 15 U/L (5-31); Bilirubin Direct < 0.2 mg/dL (0.0-0.5); Bilirubin Total 0.5 mg/dL (0.0-1.0); Blood Urea Nitrogen 11 mg/dL (9-16); Calcium 9.3 mg/dL (8.4-10.2); Carbon Dioxide 27 mmol/L (22-29); Chloride 98 mmol/L (96-108); Creatinine Clr Calc Pharmacy 81.2; Estimated Glomerular Filt Rate > 60; Glucose Random 389 mg/dL (60-115); Lipase 23 U/L (8-78); Potassium 3.4 mmol/L (3.3-5.1); Sodium 137 mmol/L (135-145); Total Protein 7.3 g/dL (6.5-8.0)
[2022-01-14 12:42] LABS: Troponin-I High Sensitivity 79.9 ng/L (<3.5-17.0)
[2022-01-14 12:48] LABS: Bacteria Urine None Seen (None Seen); Hyaline Casts Urine 0-2 /LPF (0-2); RBC Urine 0-2 /HPF (0-2); WBC Urine 0-5 /HPF (0-5)
[2022-01-14] MEDS: Labetalol HCL 100 MG/20 ML VIAL 10 MG IVPUSH (13:42)
--- NOTE | 2022-01-14 13:49 | ED.GENADULT ---
HPI - General Adult General Chief complaint: Headache Stated complaint: high BP/high BS/multiple complaints Time Seen by Provider: 01/14/22 13:02 Source: patient Mode of arrival: ambulatory Limitations: no limitations History of Present Illness HPI narrative: Patient is a 41-year-old female who presents emergency department from her primary care provider's office today. She did with the nurse to have her blood pressure reassessed as she had a recent appointment a couple weeks ago in her blood pressure was noted to be elevated. Today had readings reportedly as high as 210/140 and she is also reporting headaches. A1c done in office was 11.2. When asked, patient states that she stop taking all of her medications about 2 and half weeks ago after an appointment with her primary care provider. She states that she stopped taking them because she wants a ?med review? with her doctor. She states that she does not feel right when taking her medications states that she ?feels funny?, has body aches, and just does not feel like herself, gets very tired. She states that since she stopped taking all her medications 2 weeks ago she has actually felt even worse. Currently she is reporting a diffuse headache, body aches, intermittent blurred vision, numbness and tingling throughout her body intermittently, polyphagia, polyuria, polydipsia. Denies fevers, chills and dizziness, lightheadedness, neck pain, neck stiffness, chest pain, palpitations, shortness of breath, difficulty breathing, nausea, vomiting, abdominal pain urinary frequency, generalized weakness. Related Data Home Medications Medication Instructions Recorded Confirmed valacyclovir 500 mg tablet 1 tab PO DAILY 07/21/21 12/14/21 albuterol sulfate 2.5 mg/3 mL mg inhalation Q4H PRN muscle spasm 11/30/21 12/14/21 (0.083 %) solution for nebulization Previous Rx's Medication Instructions Recorded blood-glucose meter (FreeStyle #1 ea 09/05/20 [place] kit) labetalol 100 mg tablet 100 mg PO BID #60 tabs 09/10/20 aspirin 81 mg tablet,delayed 81 mg PO DAILY #81 tabs 01/22/21 release cholecalciferol (vitamin D3) 125 125 mcg PO DAILY #30 caps 02/26/21 mcg (5,000 unit) capsule omeprazole 40 mg capsule,delayed 40 mg PO DAILY #14 caps 02/26/21 release albuterol sulfate 90 mcg/actuation 2 inh inhalation QID PRN shortness 04/26/21 aerosol inhaler of breath or wheezing #8.5 grams nebulizers #1 ea 06/17/21 lisinopril 40 mg tablet 40 mg PO DAILY #90 tabs 06/22/21 amlodipine 10 mg tablet 10 mg PO DAILY 30 days #30 tabs 07/22/21 gabapentin 300 mg capsule 300 mg PO BEDTIME 14 days #14 caps 07/27/21 blood pressure monitor #1 ea 08/03/21 blood sugar diagnostic (FreeStyle #100 ea 11/30/21 Lite Strips) cyclobenzaprine 10 mg tablet 10 mg PO TID PRN muscle spasm #30 11/30/21 tabs lancets 28 gauge (FreeStyle #100 ea 11/30/21 Lancets) hydrochlorothiazide 12.5 mg tablet 12.5 mg PO DAILY #90 tabs 12/10/21 metformin 500 mg tablet 500 mg PO BID 30 days #60 tabs 12/10/21 sulfamethoxazole 800 1 tab PO BID #10 tabs 12/10/21 mg-trimethoprim 160 mg tablet (Bactrim DS) Allergies Allergy/AdvReac Type Severity Reaction Status Date / Time Iodinated Contrast Media Allergy Intermediate Anaphylaxis Verified 12/28/21 11:14 latex [Latex] Allergy Unknown RASH Verified 12/28/21 11:14 Review of Systems Review of Systems: Constitutional: No weight loss. No fever. No chills. No weakness. Positive fatigue. Eye: No swelling. No redness. ENT: No sore throat. No rhinorrhea. No nasal congestion. No difficulty swallowing. Skin: No rash. No itching. Cardiovascular: No chest pain. No chest pressure. No palpitations. No pedal edema. Respiratory: No shortness of breath. No cough. No sputum production. Gastrointestinal: No anorexia. No nausea. No vomiting. No diarrhea. No abdominal pain. No blood in stool. Genitourinary: No burning micturition. No incontinence. Neurologic: Positive headache. No dizziness. No pre-syncope/ syncope. No unilateral weakness. No ataxia. Positive numbness. Positive tingling. No change in bowel or bladder control. Musculoskeletal: Positive muscle pain. No back pain. Positive joint pain. No stiffness. Hematologic: No bleeding. No bruising. Lymphatics: No enlarged lymph nodes. Psychiatric:No depression. No anxiety. Endocrine: No reports of sweating. No cold or heat intolerance. Positive polyuria. Positive polydipsia. Positive polyphagia Yes all other systems are reviewed and are negative [facility] Past Medical History Attestation statement: The following information was validated with the patient. Source: old records reviewed Medical History Anemia Asthma Bilateral hand numbness Bilateral hand pain Diabetes mellitus DJD (degenerative joint disease) GERD (gastroesophageal reflux disease) HSV (herpes simplex virus) infection HTN (hypertension) Obesity Smoking TIA (transient ischemic attack) Surgical History H/O cardiac catheterization Hx of appendectomy Hx of section Hx of cholecystectomy Hx of tubal ligation Family History Family History Mother Heart disease Diabetes Hypertension Hyperlipidemia Fibromyalgia Father No problems noted. Brother No problems noted. Brother No problems noted. Brother No problems noted. Sister Deep vein thrombosis Son No problems noted. Son No problems noted. Daughter Hypertension Daughter No problems noted. Maternal Aunt History of breast cancer Social History Social History Household Members: Children Housing: Apartment Do you presently have visiting nurse or other home services: No Alcohol intake: former Patient Tobacco Use Status: Former Tobacco user Tobacco use type: Cigarette Cigarettes Per Day: 3 e-Cigarette/Vaping Use: Never Used Second Hand Smoke Exposure: Yes service: No Current occupational status: employed Cognitive needs: No Hearing needs: No Vision needs: Yes (glasses) Physical Exam ED Vital Signs: Vital Signs - 24 hr 01/14/22 11:35 01/14/22 14:12 01/14/22 14:33 Temperature 97.9 F Pulse Rate 104 H Respiratory Rate 18 Blood Pressure 182/104 H 189/97 H 194/101 H Pulse Oximetry 97 Oxygen Delivery Method Room Air 01/14/22 15:00 01/14/22 16:47 Temperature Pulse Rate Respiratory Rate 18 Blood Pressure 173/82 H 170/90 H Pulse Oximetry Oxygen Delivery Method BMI result Body Mass Index 36.2 Vital signs have been reviewed as normal and appeared to be correct. Hypertensive, mildly tachycardic.? Respiration rate normal. Temperature normal.? Oxygen saturation normal. Appearance: Alert.?Oriented to person, place and time. No acute distress.?Normal affect. Eyes: Pupils equal, round and reactive to light.? ENT: Pharynx normal.?? Neck: Normal inspection.? Neck supple.?? CVS: Heart sounds normal. Tachycardia? Pulses normal.?? Respiratory: No respiratory distress.? Lung sounds clear to auscultation bilaterally?? Abdomen: Soft and non-tender. Normoactive bowel sounds. Skin: Skin warm and dry.? Normal skin color.? Extremities: No lower extremity edema.? No calf ttp? Neuro: Moves all extremities spontaneously. Sensation intact bilaterally. CN II-XII intact. No focal neuro deficits. Ambulates with normal steady gait. Course Course Course Narrative: Patient is a 41-year-old female with a past medical history of anemia, asthma, uncontrolled diabetes mellitus type 2, degenerative joint disease, GERD, HSV, hypertension, obesity, tobacco usage, TIA who presents emergency department from her primary care provider's office for evaluation of uncontrolled hypertension and uncontrolled diabetes in the setting of having stopped her medications over the past 2 and half weeks. She has generalized complains of overall body aches as well as a diffuse headache intermittent feelings of blurred vision. Will obtain CBC to evaluate for leukocytosis/ anemia, CMP to evaluate for abnormal electrolytes /abnormal renal function/ abnormal hepatic function, EKG and troponin to evaluate for ischemia/ACS and Urinalysis. At the time examination blood pressure to 214/118, patient to receive labetalol 10 mg IV push. Reevaluation(s) Reevaluation #1: CBC reveals no acute abnormalities consistent with baseline, CMP is overall unremarkable. She is hyperglycemic with a random glucose level of 389, patient to receive insulin lispro 10 units subcutaneous. Troponin is 79.9, which is actually down trending from prior level of 195.4 in June of 2021. EKG reveals a sinus rhythm with PVCs nonspecific ST abnormality which is consistent with her prior EKG obtained in June of 2021, QT is prolonged at 485. No active chest pain. Do not suspect ACS at this time. Urinalysis with significant glucosuria, however ketones are negative, no evidence of urinary tract infection. Time: 14:00 Reevaluation #2: Blood pressure 174/90, asymptomatic at this time. No signs of end-organ damage. Consistent with hypertensive urgency. Patient advised that she should take her medications as prescribed by her primary care provider, and have her follow-up visit in 3 days, on Monday as she advised with her doctor to discuss concerns about long-term management of chronic diseases. She is ambulatory with a steady gait. Reviewed worrisome signs and symptoms return back to emergency department for. All questions were answered, patient was discharged home in stable condition. Time: 16:40 Medical Decision Making Medical Records Medical records reviewed: Yes I reviewed the patient's medical records. Lab Data Lab results reviewed: Yes I reviewed the patient's lab results. Result diagrams: 01/14/22 12:00 01/14/22 12:00 Labs: Lab Results 01/14/22 01/14/22 01/14/22 Range/Units 11:53 12:00 12:00 WBC 11.3 H (4.8-10.8) X10*3/uL RBC 5.21 (4.20-5.50) X10*6/uL Hgb 11.7 L (12.0-16.0) g/dl Hct 37.0 (37.0-47.0) % MCV 71.0 L (80.0-98.0) fL MCH 22.5 L (27.0-33.0) pg MCHC 31.6 (31.0-35.0) g/dl RDW 18.0 H (11.0-16.0) % Plt Count 278 (160-400) X10*3/uL MPV 11.2 (9.4-12.3) fL Immature Gran % (Auto) 0.5 H (0.0-0.4) % Neut % (Auto) 62.0 (45-73) % Lymph % (Auto) 30.0 (20-40) % [place] % (Auto) 4.8 (2-11) % Eos % (Auto) 2.3 (0-4) % Baso % (Auto) 0.4 (0-2) % Lymph # (Auto) 3.4 (1.2-4.9) X10*3/uL [place] # (Auto) 0.5 (0.1-1.2) X10*3/uL Eos # (Auto) 0.3 (0.0-0.4) X10*3/uL Baso # (Auto) 0.1 (0.0-0.2) X10*3/uL Abs Immat Gran (auto) 0.06 H (0.00-0.03) X10*3/uL Absolute Neuts (auto) 7.0 (2.0-8.3) x10*3/uL Absolute Nucleated RBC 0.000 (0.0-0.012) X10*3/uL Nucleated RBC % (auto) 0.0 (0.0-0.2) /100WBC Sodium 137 (135-145) mmol/L Potassium 3.4 (3.3-5.1) mmol/L Chloride 98 (96-108) mmol/L Carbon Dioxide 27 (22-29) mmol/L Anion Gap 15 (12-20) BUN 11 (9-16) mg/dL Creatinine 0.94 (0.5-1.4) mg/dL Estim Creat Clear Calc 81.2 Estimated GFR > 60 POC Glucose (60-115) mg/dL Random Glucose 389 H* (60-115) mg/dL Calcium 9.3 (8.4-10.2) mg/dL Total Bilirubin 0.5 (0.0-1.0) mg/dL Direct Bilirubin < 0.2 (0.0-0.5) mg/dL AST 15 (5-31) U/L ALT 13 (0-31) U/L Alkaline Phosphatase 108 (39-117) U/L Troponin I High Sens (<3.5-17.0) ng/L Total Protein 7.3 (6.5-8.0) g/dL Albumin 3.8 (3.5-5.0) g/dL Lipase 23 (8-78) U/L Urine Color Yellow Urine Appearance Clear Urine pH 6.0 (5.0-9.0) Ur Specific [place] >= 1.030 H (1.005-1.025) Urine Protein 30 (1+) H (Neg-Trace) mg/dL Urine Glucose (UA) >=1000 H (Negative) mg/dL Urine Ketones Negative (Negative) mg/dL Urine Blood Moderate (2+) H (Negative) Urine Nitrite Negative (Negative) Ur Leukocyte Esterase Negative (Negative) Urine RBC 0-2 (0-2) /HPF Urine WBC 0-5 (0-5) /HPF Ur Squamous Epith Cells 3-5 (0-2) /HPF Urine Bacteria None Seen (None Seen) Hyaline Casts 0-2 (0-2) /LPF Ethyl Alcohol mg/dL COVID-19 (YANN) (Negative) COVID-19 Clin Com 01/14/22 01/14/22 01/14/22 Range/Units 12:00 12:00 12:00 WBC (4.8-10.8) X10*3/uL RBC (4.20-5.50) X10*6/uL Hgb (12.0-16.0) g/dl Hct (37.0-47.0) % MCV (80.0-98.0) fL MCH (27.0-33.0) pg MCHC (31.0-35.0) g/dl RDW (11.0-16.0) % Plt Count (160-400) X10*3/uL MPV (9.4-12.3) fL Immature Gran % (Auto) (0.0-0.4) % Neut % (Auto) (45-73) % Lymph % (Auto) (20-40) % [place] % (Auto) (2-11) % Eos % (Auto) (0-4) % Baso % (Auto) (0-2) % Lymph # (Auto) (1.2-4.9) X10*3/uL [place] # (Auto) (0.1-1.2) X10*3/uL Eos # (Auto) (0.0-0.4) X10*3/uL Baso # (Auto) (0.0-0.2) X10*3/uL Abs Immat Gran (auto) (0.00-0.03) X10*3/uL Absolute Neuts (auto) (2.0-8.3) x10*3/uL Absolute Nucleated RBC (0.0-0.012) X10*3/uL Nucleated RBC % (auto) (0.0-0.2) /100WBC Sodium (135-145) mmol/L Potassium (3.3-5.1) mmol/L Chloride (96-108) mmol/L Carbon Dioxide (22-29) mmol/L Anion Gap (12-20) BUN (9-16) mg/dL Creatinine (0.5-1.4) mg/dL Estim Creat Clear Calc Estimated GFR POC Glucose (60-115) mg/dL Random Glucose (60-115) mg/dL Calcium (8.4-10.2) mg/dL Total Bilirubin (0.0-1.0) mg/dL Direct Bilirubin (0.0-0.5) mg/dL AST (5-31) U/L ALT (0-31) U/L Alkaline Phosphatase (39-117) U/L Troponin I High Sens 79.9 H* D (<3.5-17.0) ng/L Total Protein (6.5-8.0) g/dL Albumin (3.5-5.0) g/dL Lipase (8-78) U/L Urine Color Urine Appearance Urine pH (5.0-9.0) Ur Specific [place] (1.005-1.025) Urine Protein (Neg-Trace) mg/dL Urine Glucose (UA) (Negative) mg/dL Urine Ketones (Negative) mg/dL Urine Blood (Negative) Urine Nitrite (Negative) Ur Leukocyte Esterase (Negative) Urine RBC (0-2) /HPF Urine WBC (0-5) /HPF Ur Squamous Epith Cells (0-2) /HPF Urine Bacteria (None Seen) Hyaline Casts (0-2) /LPF Ethyl Alcohol < 10 mg/dL COVID-19 (YANN) Negative (Negative) COVID-19 Clin Com See Note 01/14/22 Range/Units 14:32 WBC (4.8-10.8) X10*3/uL RBC (4.20-5.50) X10*6/uL Hgb (12.0-16.0) g/dl Hct (37.0-47.0) % MCV (80.0-98.0) fL MCH (27.0-33.0) pg MCHC (31.0-35.0) g/dl RDW (11.0-16.0) % Plt Count (160-400) X10*3/uL MPV (9.4-12.3) fL Immature Gran % (Auto) (0.0-0.4) % Neut % (Auto) (45-73) % Lymph % (Auto) (20-40) % [place] % (Auto) (2-11) % Eos % (Auto) (0-4) % Baso % (Auto) (0-2) % Lymph # (Auto) (1.2-4.9) X10*3/uL [place] # (Auto) (0.1-1.2) X10*3/uL Eos # (Auto) (0.0-0.4) X10*3/uL Baso # (Auto) (0.0-0.2) X10*3/uL Abs Immat Gran (auto) (0.00-0.03) X10*3/uL Absolute Neuts (auto) (2.0-8.3) x10*3/uL Absolute Nucleated RBC (0.0-0.012) X10*3/uL Nucleated RBC % (auto) (0.0-0.2) /100WBC Sodium (135-145) mmol/L Potassium (3.3-5.1) mmol/L Chloride (96-108) mmol/L Carbon Dioxide (22-29) mmol/L Anion Gap (12-20) BUN (9-16) mg/dL Creatinine (0.5-1.4) mg/dL Estim Creat Clear Calc Estimated GFR POC Glucose 315 H (60-115) mg/dL Random Glucose (60-115) mg/dL Calcium (8.4-10.2) mg/dL Total Bilirubin (0.0-1.0) mg/dL Direct Bilirubin (0.0-0.5) mg/dL AST (5-31) U/L ALT (0-31) U/L Alkaline Phosphatase (39-117) U/L Troponin I High Sens (<3.5-17.0) ng/L Total Protein (6.5-8.0) g/dL Albumin (3.5-5.0) g/dL Lipase (8-78) U/L Urine Color Urine Appearance Urine pH (5.0-9.0) Ur Specific [place] (1.005-1.025) Urine Protein (Neg-Trace) mg/dL Urine Glucose (UA) (Negative) mg/dL Urine Ketones (Negative) mg/dL Urine Blood (Negative) Urine Nitrite (Negative) Ur Leukocyte Esterase (Negative) Urine RBC (0-2) /HPF Urine WBC (0-5) /HPF Ur Squamous Epith Cells (0-2) /HPF Urine Bacteria (None Seen) Hyaline Casts (0-2) /LPF Ethyl Alcohol mg/dL COVID-19 (YANN) (Negative) COVID-19 Clin Com ECG Data Attestation: I personally reviewed and interpreted this ECG as follows: Prior ECG tracings: available for review Interpretation: Rate: 99 Rhythm:? Sinus rhythm with PVCs Normal P waves.? Normal LIT.?? Normal QRS complex.?? ST T wave :??Nonspecific ST abnormality consistent with prior EKG in June 2021 qTC: Prolonged; 485 prior studies:? June 2021 The study has been interpreted contemporaneously by me. Discharge Plan Discharge Clinical Impression: Hypertensive urgency Patient Disposition: Home, Self-Care Instructions: Hypertensive Crisis (ED) Additional Instructions: As we discussed, your blood pressure was significantly elevated upon presenting to the emergency department. We were were able to control this with IV labetalol. Your blood pressure is most likely elevated as you stopped taking all blood pressure medications. Please follow-up with your primary care provider on Monday, you should begin taking your medications as previously prescribed by your doctor, and have a discussion with him in regards to medication evaluation as potential causes for your concerns. If you develop new or worsening symptoms or concerns such as severe headache, chest pain, difficulty breathing, numbness or tingling, weakness, nausea persistent vomiting, persistent vision changes, difficulty walking he should come back to the emergency department. Prescriptions: No Action albuterol sulfate 90 mcg/actuation HFA aerosol inhaler 2 inh inhalation QID PRN (Reason: shortness of breath or wheezing) Qty: 8.5 8RF (DME) nebulizers Mis See Rx Instructions .Route Qty: 1 0RF Rx Instructions: to use every 4 hours as needed for wheezing hydrochlorothiazide 12.5 mg tablet 12.5 mg PO DAILY Qty: 90 1RF metformin 500 mg tablet 500 mg PO BID 30 Days Qty: 60 0RF (DME) blood-glucose meter [FreeStyle [place]] Kit See Rx Instructions .ROUTE .MEDSUPPLY Qty: 1 0RF Rx Instructions: As directed valacyclovir 500 mg tablet 1 tab PO DAILY amlodipine 10 mg Tablet 10 mg PO DAILY 30 Days Qty: 30 0RF Protocol: Hold for SBP< HOLD for SBP < : 90 labetalol 100 mg tablet 100 mg PO BID Qty: 60 8RF Protocol: Hold for SBP/HR < HOLD for SBP < : 90 HOLD for HR < : 60 albuterol sulfate 2.5 mg /3 mL (0.083 %) solution for nebulization inhalation Q4H PRN (Reason: muscle spasm) (DME) lancets [FreeStyle Lancets] 28 gauge misc See Rx Instructions .ROUTE .MEDSUPPLY Qty: 100 7RF Rx Instructions: BID As directed (DME) FreeStyle Lite Strips Strip See Rx Instructions .ROUTE .MEDSUPPLY Qty: 100 7RF Rx Instructions: BID As directed cyclobenzaprine 10 mg tablet 10 mg PO TID PRN (Reason: muscle spasm) Qty: 30 2RF sulfamethoxazole-trimethoprim [Bactrim DS] 800-160 mg tablet 1 tab PO BID Qty: 10 0RF aspirin 81 mg tablet,delayed release (DR/EC) 81 mg PO DAILY Qty: 81 8RF gabapentin 300 mg capsule 300 mg PO BEDTIME 14 Days Qty: 14 0RF cholecalciferol (vitamin D3) 125 mcg (5,000 unit) capsule 125 mcg PO DAILY Qty: 30 2RF omeprazole 40 mg capsule,delayed release(DR/EC) 40 mg PO DAILY Qty: 14 0RF lisinopril 40 mg tablet 40 mg PO DAILY Qty: 90 3RF (DME) blood pressure monitor Kit See Rx Instructions .Route Qty: 1 0RF Rx Instructions: As directed Interventions: ED Discharge Assessment Last Done: 01/14/22 16:46 Discharge Date/Time: 01/14/22 16:48
[2022-01-14 14:12] VITALS: BP 189/97
[2022-01-14] MEDS: Insulin Lispro 100 UNIT/ML 3 ML VIAL 10 UNIT SUBCUT (14:12)
[2022-01-14 14:33] VITALS: BP 194/101
[2022-01-14 14:37] LABS: Glucose, Whole Blood 315 mg/dL (60-115)
[2022-01-14 15:00] VITALS: BP 173/82
[2022-01-14 16:47] VITALS: BP 170/90; RESP 18
[2022-01-17 07:34] LABS: Glucose, Whole Blood 201 mg/dL (60-115)
== END 2022-01-14 16:48 | disposition home or self-care (01) ==
PROVIDERS: Emergency Provider Emergency Medicine; PCP Internal Medicine
DX: I16.0 Hypertensive urgency (principal); R51.9 Headache, unspecified; E11.65 Type 2 diabetes mellitus with hyperglycemia; Z20.822 Contact with and (suspected) exposure to COVID-19; I10 Essential (primary) hypertension; E11.9 Type 2 diabetes mellitus without complications; F17.210 Nicotine dependence, cigarettes, uncomplicated; Z86.73 Personal history of transient ischemic attack (TIA), and cerebral infarction without residual deficits; Z91.14 Patient's other noncompliance with medication regimen
CPT/HCPCS: 36415; 80053; 81001; 82077; 82248; 82947; 83690; 84484; 85025; 87635; 93005; 96374; 99284; 99285

== ENCOUNTER 2022-04-03 16:00 | Emergency (ER) | payer OTHER, SELFPAY ==
--- NOTE | ~2022-04-03 | CT_ITS ---
EXAMINATION: CT ABDOMEN AND PELVIS WITHOUT CONTRAST CLINICAL INFORMATION: Bilateral flank pain. COMPARISON: CT abdomen/pelvis 01/09/2019. TECHNIQUE: Multidetector volumetric imaging was performed from the superior aspect of the liver through the pubic symphysis. Sagittal and coronal reformatted images were obtained on the technologist's workstation. This CT examination was performed using dose optimization techniques as appropriate, variously including the following: *Automated exposure control *Adjustment of mA and/or kV according to patient size (this includes techniques or standardized protocols for targeted exams where dose is matched to indication/reason for exam; i.e. extremities or head) *Use of iterative reconstruction technique DLP: 629 mGy-cm FINDINGS: LUNG BASES: No focal consolidation or pleural effusion. LIVER, GALLBLADDER, AND BILIARY TREE: The liver is enlarged measuring 19.6 cm craniocaudally but is otherwise normal in shape. There is a wedge-shaped region of hypoattenuation in the left hepatic lobe with no associated mass effect and with vessels running through it (3:13), favored to represent a perfusional abnormality or artifact, as this is not definitely identified on thin section axial images. Cholecystectomy. No biliary ductal dilatation. PANCREAS: Limited noncontrast examination, unremarkable. SPLEEN: Limited noncontrast examination, unremarkable. ADRENAL GLANDS: No adrenal mass. KIDNEYS AND URETERS: Punctate nonobstructive calculus in the lower left kidney. No hydronephrosis. No perinephric fat stranding. BLADDER: Unremarkable. GASTROINTESTINAL TRACT: The small and large bowel are within normal limits. The appendix is not identified, possibly surgically removed with no regional inflammatory changes. ABDOMINAL WALL: Fat-containing umbilical abdominal hernia with mild fat stranding. LYMPH NODES: No pathologically enlarged lymph nodes. VASCULAR: Limited noncontrast examination. Abdominal aorta is of normal diameter. PELVIC VISCERA: There is a 2.6 cm water density cyst in the right adnexa, likely right ovary, unchanged since 01/09/2019. OSSEOUS STRUCTURES: Asymmetric sclerosis of the right sacral alae and right SI joint (4:460), stable when compared to 01/09/2019. CT/CT abdomen pelvis wo IV con IMPRESSION: 1. Punctate nonobstructive calculus in the lower left kidney. No hydronephrosis. 2. Hepatomegaly. 3. Fat-containing umbilical abdominal hernia with mild fat stranding, correlate with physical examination.
--- NOTE | ~2022-04-03 | XR_ITS ---
EXAMINATION: XR CHEST CLINICAL INFORMATION: Multiple complaints. COMPARISON: Chest radiograph 01/25/2021. TECHNIQUE: 2 views of the chest were obtained. FINDINGS: Stable appearance of the cardiomediastinal silhouette. No focal airspace opacity, pleural effusion or pneumothorax. Right upper quadrant surgical clips. No acute osseous abnormalities. XR/XR chest 2V IMPRESSION: No acute cardiopulmonary findings.
[2022-04-03 16:06] VITALS: BP 242/133; PULSE 95; RESP 16; TEMP 36.4; O2SAT 100; BMI 36.2
--- NOTE | 2022-04-03 16:10 | ECG_ITS ---
Test Reason : htn/cp Blood Pressure : / mmHG Vent. Rate : 098 BPM Atrial Rate : 098 BPM P-R Int : 162 ms QRS Dur : 090 ms QT Int : 392 ms P-R-T Axes : 065 -12 142 degrees QTc Int : 500 ms Normal sinus rhythm Left ventricular hypertrophy with repolarization abnormality ( R in aVL , Neptali product ) Prolonged QT Abnormal ECG When compared with ECG of 14-JAN-2022 11:43, Premature ventricular complexes are no longer Present T wave inversion more evident in Lateral leads Referred By: Generic ED Physician Electronically Signed By:Marlon Mclain
[2022-04-03 16:13] VITALS: BP 227/135
[2022-04-03 16:44] LABS: Appearance Urine Clear; Color Urine Yellow; Glucose Urine UA >=1000 mg/dL (Negative); Leukocyte Esterase Urine Negative (Negative); Nitrite Urine Negative (Negative); Specific Gravity - Urine >= 1.030 (1.005-1.025); UMIC TRIGGER UACC YES; Urine Blood Trace (Negative); Urine Ketones Negative (Negative); Urine Protein Trace mg/dL (Neg-Trace)
[2022-04-03 16:47] LABS: Mean Corpuscular Hemoglobin 22.1 pg (27.0-33.0); Red Blood Count 5.42 X10*6/uL (4.20-5.50); SCAN SMEAR FLAG 1
[2022-04-03 16:49] LABS: Bacteria Urine None Seen (None Seen); Basophils Absolute Auto 0.1 X10*3/uL (0.0-0.2); Basophils Percent Auto 0.4 % (0-2); Eosinophils Absolute Auto 0.3 X10*3/uL (0.0-0.4); Eosinophils Percent Auto 2.9 % (0-4); Hematocrit 38.9 % (37.0-47.0); Hyaline Casts Urine 0-2 /LPF (0-2); Imm Gran Abs Auto 0.04 X10*3/uL (0.00-0.03); Imm Gran Pct Auto 0.3 % (0.0-0.4); Lymphocytes Absolute Auto 3.5 X10*3/uL (1.2-4.9); Lymphocytes Percent Auto 29.4 % (20-40); Mean Corpuscular HGB Conc 30.8 g/dl (31.0-35.0); Mean Corpuscular Volume 71.8 fL (80.0-98.0); Mean Platelet Volume 11.6 fL (9.4-12.3); Monocytes Absolute Auto 0.6 X10*3/uL (0.1-1.2); Monocytes Percent Auto 5.3 % (2-11); Neutrophils Absolute Auto 7.3 x10*3/uL (2.0-8.3); Neutrophils Percent Auto 61.7 % (45-73); Platelet Count 292 X10*3/uL (160-400); RBC Urine 0-2 /HPF (0-2); Red Cell Distribution Width 16.1 % (11.0-16.0); Squamous Epithelial Cell Urine 0-2 /HPF (0-2); WBC Urine 0-5 /HPF (0-5); White Blood Count 11.9 X10*3/uL (4.8-10.8)
[2022-04-03 16:52] LABS: Acetone, serum QL Negative (Negative)
[2022-04-03 16:54] LABS: MANUAL DIFF FLAG NO; PLT ABN DIST 1
[2022-04-03 16:57] LABS: Alanine Aminotransferase 13 U/L (0-31); Albumin Level 3.7 g/dL (3.5-5.0); Alkaline Phosphatase 118 U/L (39-117); Aspartate Amino Transferase 13 U/L (5-31); Bilirubin Direct < 0.2 mg/dL (0.0-0.5); Bilirubin Total 0.2 mg/dL (0.0-1.0); Magnesium 1.5 mg/dL (1.6-2.6); Total Protein 7.1 g/dL (6.5-8.0)
[2022-04-03 17:05] LABS: Anion Gap 14 (12-20); Blood Urea Nitrogen 14 mg/dL (9-16); Calcium 9.3 mg/dL (8.4-10.2); Carbon Dioxide 27 mmol/L (22-29); Chloride 97 mmol/L (96-108); Creatinine Clr Calc Pharmacy 93.1; Estimated Glomerular Filt Rate > 60; Glucose Random 404 mg/dL (60-115); HCG Quantitative < 2 mIU/mL; Potassium 3.5 mmol/L (3.3-5.1); Sodium 134 mmol/L (135-145)
--- NOTE | 2022-04-03 17:12 | ED.GENADULT ---
HPI - General Adult General Chief complaint: General Medical Stated complaint: lower back and abdominal pain, no injury Time Seen by Provider: 04/03/22 16:48 Source: patient Mode of arrival: ambulatory Limitations: no limitations History of Present Illness HPI narrative: 41-year-old female presents for 1 week of feeling unwell, 3 days of bilateral flank pain, headaches, leg pain, upper back pain, upper respiratory symptoms, and also reports to have elevated A1c and glucose. She is a type 2 diabetic, has a history of kidney stones, anemia, obesity, depressive disorder, history of a TIA, GERD, and chronic headaches. She does not report any chest pain or pressure, palpitations, changes in vision, weakness, nausea, vomiting, diarrhea, and weakness. Onset (ago): week(s) (1) Location: chest, back, abdomen, left, right and lower extremity Radiation: non-radiation Severity: moderate Severity scale (1-10): 5 Quality: aching Pain Consistency: constant Relieving factors: none Exacerbating factors: movement Associated symptoms: cough Treatments prior to arrival: none Related Data Home Medications Medication Instructions Recorded Confirmed valacyclovir 500 mg tablet 1 tab PO DAILY 07/21/21 12/14/21 albuterol sulfate 2.5 mg/3 mL mg inhalation Q4H PRN muscle spasm 11/30/21 12/14/21 (0.083 %) solution for nebulization Previous Rx's Medication Instructions Recorded blood-glucose meter (UpDroidStyle #1 ea 09/05/20 [place] kit) labetalol 100 mg tablet 100 mg PO BID #60 tabs 09/10/20 cholecalciferol (vitamin D3) 125 125 mcg PO DAILY #30 caps 02/26/21 mcg (5,000 unit) capsule omeprazole 40 mg capsule,delayed 40 mg PO DAILY #14 caps 02/26/21 release albuterol sulfate 90 mcg/actuation 2 inh inhalation QID PRN shortness 04/26/21 aerosol inhaler of breath or wheezing #8.5 grams nebulizers #1 ea 06/17/21 lisinopril 40 mg tablet 40 mg PO DAILY #90 tabs 06/22/21 gabapentin 300 mg capsule 300 mg PO BEDTIME 14 days #14 caps 07/27/21 blood pressure monitor #1 ea 08/03/21 blood sugar diagnostic (FreeStyle #100 ea 11/30/21 Lite Strips) cyclobenzaprine 10 mg tablet 10 mg PO TID PRN muscle spasm #30 11/30/21 tabs lancets 28 gauge (FreeStyle #100 ea 11/30/21 Lancets) hydrochlorothiazide 12.5 mg tablet 12.5 mg PO DAILY #90 tabs 12/10/21 sulfamethoxazole 800 1 tab PO BID #10 tabs 12/10/21 mg-trimethoprim 160 mg tablet (Bactrim DS) amlodipine 10 mg tablet 10 mg PO DAILY 30 days #30 tabs 01/22/22 aspirin 81 mg tablet,delayed 81 mg PO DAILY #81 tabs 02/16/22 release fluconazole 150 mg tablet 150 mg PO Q3D 2 doses #2 tabs 04/03/22 (Diflucan) ibuprofen 600 mg tablet 600 mg PO Q6H PRN pain #30 tabs 04/03/22 metformin 500 mg tablet 500 mg PO BID 30 days #60 tabs 04/03/22 tamsulosin 0.4 mg capsule (Flomax) 0.4 mg PO DAILY 14 days #14 caps 04/03/22 Allergies Allergy/AdvReac Type Severity Reaction Status Date / Time Iodinated Contrast Media Allergy Intermediate Anaphylaxis Verified 12/28/21 11:14 latex [Latex] Allergy Unknown RASH Verified 12/28/21 11:14 Review of Systems Review of Systems: Constitutional: No Fever, no Chills, positive fatigue, positive Malaise ENT/Mouth: No sore throat, positive runny nose Eyes: No Discharge Cardiovascular: No Chest Pain, No SOB Respiratory: Positive Cough, No Sputum, No Wheezing, No Dyspnea Gastrointestinal: No Nausea, No Vomiting, No Diarrhea, positive bilateral flank pain Musculoskeletal: positive Myalgia, positive lower back pain, positive bilateral lower extremity pain Skin: No rash Neuro: No Headache Yes all other systems are reviewed and are negative PMFSH Past Medical History Attestation statement: The following information was validated with the patient. Source: old records reviewed Medical History Anemia Asthma Bilateral hand numbness Bilateral hand pain Diabetes mellitus DJD (degenerative joint disease) GERD (gastroesophageal reflux disease) HSV (herpes simplex virus) infection HTN (hypertension) Obesity Smoking TIA (transient ischemic attack) Surgical History H/O cardiac catheterization Hx of appendectomy Hx of section Hx of cholecystectomy Hx of tubal ligation Family History Family History Mother Heart disease Diabetes Hypertension Hyperlipidemia Fibromyalgia Father No problems noted. Brother No problems noted. Brother No problems noted. Brother No problems noted. Sister Deep vein thrombosis Son No problems noted. Son No problems noted. Daughter Hypertension Daughter No problems noted. Maternal Aunt History of breast cancer Social History Social History Household Members: Children Housing: Apartment Do you presently have visiting nurse or other home services: No Alcohol intake: never Patient Tobacco Use Status: Former Tobacco user Tobacco use type: Cigarette Cigarettes Per Day: 3 Smoked in Last 30 Days: No e-Cigarette/Vaping Use: Never Used Second Hand Smoke Exposure: Yes Use of substances other than those prescribed or required for medical reasons: No Advance Directives: No Advance Directives Information Provided: Yes service: No Current occupational status: employed Cognitive needs: No Hearing needs: No Vision needs: Yes (glasses) Physical Exam ED Vital Signs: Vital Signs - 24 hr 04/03/22 16:06 04/03/22 16:13 04/03/22 17:48 Temperature 97.6 F Pulse Rate 95 96 Respiratory Rate 16 20 Blood Pressure 242/133 H 227/135 H 205/111 H Pulse Oximetry 100 98 Oxygen Delivery Method Room Air Room Air 04/03/22 18:48 Temperature Pulse Rate 95 Respiratory Rate 13 Blood Pressure 210/112 H Pulse Oximetry 99 Oxygen Delivery Method Room Air BMI result Body Mass Index 36.2 Appearance: Alert. Oriented X3. Mild distress. Eyes: Pupils equal, round and reactive to light. Positive for anuria. ENT: Pharynx normal. No vertebral tenderness. Neck: Normal inspection. Neck supple. CVS: Normal heart rate and rhythm. Pulses normal. Respiratory: No respiratory distress. Breath sounds normal. Abdomen: Soft and diffusely tender. Bilateral CVA tenderness. Skin: Skin warm and dry. Normal skin color. Normal skin turgor. Extremities: No lower extremity edema. Gait balance and coordinated. Neuro: No motor deficit. No sensory deficit. Cranial nerves 2-12 intact. Course Course Course Narrative: 41-year-old female presents with about a week of upper respiratory symptoms, nasal congestion, cough, 3 days of bilateral flank pain, suprapubic pain, lower extremity pain, and back pain. Patient also is concerned about elevated A1c and POC. Patient is hypertensive upon arrival, states to have taken her medications as directed. Labs drawn while she was in the emergency department waiting room, CT scan of abdomen pelvis are pending. Patient's physical presentation is consistent with possible pyelonephritis versus kidney stone versus acute abdomen. Will hold off on antibiotics at this time, however will give pain management, fluids and Zofran. Patient's magnesium level is 1.5, will replete with 2 g. Alk-phos is mildly elevated, beta quant is negative. No left upper quadrant abdominal pain consistent with pancreatitis. Low likelihood of pancreatitis at this time. Patient does have trace heme in her urinalysis, negative for nitrites leukocyte esterase and bacteria. Low likelihood be pyelo. More likely kidney stone. Patient is also reporting thick white chunky vaginal discharge consistent with candidiasis. She is not sexually active, and has not been on any antibiotics recently. She politely declines pelvic exam at this time. CT scan is negative for acute findings. Does show a kidney stone and an umbilical hernia. Patient's blood sugar is 400. Patient will go home and take her metformin. Elevated blood pressure of 200/100 reported by his 2nd RN. I did give her evening dose of labetalol. Patient will follow-up with primary care physician for elevated glucose and A1c level per her report. Patient understands that blood pressures need to be better maintained as well as blood sugars. She may require medication changes however she must follow-up with her primary care physician for blood pressure and diabetes medication management. Medications Administered Discontinued Medications Generic Name Dose Route Start Last Admin Trade Name Freq PRN Reason Stop Dose Admin Magnesium Sulfate 2 gm in 50 mls @ 25 mls/hr 04/03/22 16:59 04/03/22 17:35 Magnesium Sulfate/H2o IV 04/03/22 18:58 25 mls/hr ONCE ONE Administration Sodium Chloride 1,000 mls @ 999 mls/hr 04/03/22 17:15 04/03/22 18:38 Ns IVCONT 04/03/22 18:15 Infused .Q1H1M MESHA Infusion Labetalol HCl 100 mg 04/03/22 19:16 04/03/22 19:20 Labetalol Hcl 100 Mg Tablet PO 04/03/22 19:17 100 mg ONCE ONE Administration Protocol Morphine Sulfate 4 mg 04/03/22 17:13 04/03/22 17:46 Morphine Sulfate 4 Mg/Ml Cartridge IVPUSH 04/03/22 17:14 4 mg ONCE ONE Administration Protocol Ondansetron HCl 4 mg 04/03/22 17:13 04/03/22 17:46 Ondansetron Hcl 4 Mg/2 Ml Vial IVPUSH 04/03/22 17:14 4 mg ONCE ONE Administration Medical Decision Making Differential Diagnosis Differential Diagnoses: The differential diagnosis associated with the presentation includes Lab Data MDM Lab Attestation statement: I reviewed the patient's lab results. 04/03/22 16:37 04/03/22 16:37 Labs: Lab Results 04/03/22 04/03/22 04/03/22 Range/Units 16:37 16:37 16:37 WBC 11.9 H (4.8-10.8) X10*3/uL RBC 5.42 (4.20-5.50) X10*6/uL Hgb 12.0 (12.0-16.0) g/dl Hct 38.9 (37.0-47.0) % MCV 71.8 L (80.0-98.0) fL MCH 22.1 L (27.0-33.0) pg MCHC 30.8 L (31.0-35.0) g/dl RDW 16.1 H (11.0-16.0) % Plt Count 292 (160-400) X10*3/uL MPV 11.6 (9.4-12.3) fL Immature Gran % (Auto) 0.3 (0.0-0.4) % Neut % (Auto) 61.7 (45-73) % Lymph % (Auto) 29.4 (20-40) % [place] % (Auto) 5.3 (2-11) % Eos % (Auto) 2.9 (0-4) % Baso % (Auto) 0.4 (0-2) % Lymph # (Auto) 3.5 (1.2-4.9) X10*3/uL [place] # (Auto) 0.6 (0.1-1.2) X10*3/uL Eos # (Auto) 0.3 (0.0-0.4) X10*3/uL Baso # (Auto) 0.1 (0.0-0.2) X10*3/uL Abs Immat Gran (auto) 0.04 H (0.00-0.03) X10*3/uL Absolute Neuts (auto) 7.3 (2.0-8.3) x10*3/uL Absolute Nucleated RBC 0.000 (0.0-0.012) X10*3/uL Nucleated RBC % (auto) 0.0 (0.0-0.2) /100WBC Sodium 134 L (135-145) mmol/L Potassium 3.5 (3.3-5.1) mmol/L Chloride 97 (96-108) mmol/L Carbon Dioxide 27 (22-29) mmol/L Anion Gap 14 (12-20) BUN 14 (9-16) mg/dL Creatinine 0.82 (0.5-1.4) mg/dL Estim Creat Clear Calc 93.1 Estimated GFR > 60 Random Glucose 404 H* (60-115) mg/dL Calcium 9.3 (8.4-10.2) mg/dL Magnesium 1.5 L (1.6-2.6) mg/dL Total Bilirubin 0.2 (0.0-1.0) mg/dL Direct Bilirubin < 0.2 (0.0-0.5) mg/dL AST 13 (5-31) U/L ALT 13 (0-31) U/L Alkaline Phosphatase 118 H (39-117) U/L Total Protein 7.1 (6.5-8.0) g/dL Albumin 3.7 (3.5-5.0) g/dL Beta HCG, Quant mIU/mL Urine Color Urine Appearance Urine pH (5.0-9.0) Ur Specific [place] (1.005-1.025) Urine Protein (Neg-Trace) mg/dL Urine Glucose (UA) (Negative) mg/dL Urine Ketones (Negative) mg/dL Urine Blood (Negative) Urine Nitrite (Negative) Ur Leukocyte Esterase (Negative) Urine RBC (0-2) /HPF Urine WBC (0-5) /HPF Ur Squamous Epith Cells (0-2) /HPF Urine Bacteria (None Seen) Hyaline Casts (0-2) /LPF Acetone, Qual Negative (Negative) Influenza Type A (PCR) (Negative) Influenza Type B (PCR) (Negative) RSV RNA Qual (PCR) (Negative) SARS-CoV-2 RNA (RT-PCR) (Negative) 04/03/22 04/03/22 04/03/22 Range/Units 16:37 16:37 16:37 WBC (4.8-10.8) X10*3/uL RBC (4.20-5.50) X10*6/uL Hgb (12.0-16.0) g/dl Hct (37.0-47.0) % MCV (80.0-98.0) fL MCH (27.0-33.0) pg MCHC (31.0-35.0) g/dl RDW (11.0-16.0) % Plt Count (160-400) X10*3/uL MPV (9.4-12.3) fL Immature Gran % (Auto) (0.0-0.4) % Neut % (Auto) (45-73) % Lymph % (Auto) (20-40) % [place] % (Auto) (2-11) % Eos % (Auto) (0-4) % Baso % (Auto) (0-2) % Lymph # (Auto) (1.2-4.9) X10*3/uL [place] # (Auto) (0.1-1.2) X10*3/uL Eos # (Auto) (0.0-0.4) X10*3/uL Baso # (Auto) (0.0-0.2) X10*3/uL Abs Immat Gran (auto) (0.00-0.03) X10*3/uL Absolute Neuts (auto) (2.0-8.3) x10*3/uL Absolute Nucleated RBC (0.0-0.012) X10*3/uL Nucleated RBC % (auto) (0.0-0.2) /100WBC Sodium (135-145) mmol/L Potassium (3.3-5.1) mmol/L Chloride (96-108) mmol/L Carbon Dioxide (22-29) mmol/L Anion Gap (12-20) BUN (9-16) mg/dL Creatinine (0.5-1.4) mg/dL Estim Creat Clear Calc Estimated GFR Random Glucose (60-115) mg/dL Calcium (8.4-10.2) mg/dL Magnesium (1.6-2.6) mg/dL Total Bilirubin (0.0-1.0) mg/dL Direct Bilirubin (0.0-0.5) mg/dL AST (5-31) U/L ALT (0-31) U/L Alkaline Phosphatase (39-117) U/L Total Protein (6.5-8.0) g/dL Albumin (3.5-5.0) g/dL Beta HCG, Quant < 2 mIU/mL Urine Color Yellow Urine Appearance Clear Urine pH 6.0 (5.0-9.0) Ur Specific [place] >= 1.030 H (1.005-1.025) Urine Protein Trace (Neg-Trace) mg/dL Urine Glucose (UA) >=1000 H (Negative) mg/dL Urine Ketones Negative (Negative) mg/dL Urine Blood Trace H (Negative) Urine Nitrite Negative (Negative) Ur Leukocyte Esterase Negative (Negative) Urine RBC 0-2 (0-2) /HPF Urine WBC 0-5 (0-5) /HPF Ur Squamous Epith Cells 0-2 (0-2) /HPF Urine Bacteria None Seen (None Seen) Hyaline Casts 0-2 (0-2) /LPF Acetone, Qual (Negative) Influenza Type A (PCR) NEGATIVE (Negative) Influenza Type B (PCR) NEGATIVE (Negative) RSV RNA Qual (PCR) NEGATIVE (Negative) SARS-CoV-2 RNA (RT-PCR) NEGATIVE (Negative) Independent Interpretation I performed an independent interpretation of an: EKG, Plain X-Ray and CT Scan Interpretation: Vent. rate 98 BPM LA interval 162 ms QRS duration 90 ms QT/QTc 392/500 ms P-R-T axes 65 -12 142 Normal sinus rhythm Left ventricular hypertrophy with repolarization abnormality ( R in aVL , Rickreall product ) Prolonged QT Abnormal ECG When compared with ECG of 14-JAN-2022 11:43, Premature ventricular complexes are no longer Present T wave inversion more evident in Lateral leads 03-APR-2022 16:22:17 Radiology Impression Discussion of test interpretation with radiology: I have reviewed the radiologist's reading. Radiologist Impression: FINDINGS: LUNG BASES: No focal consolidation or pleural effusion.? LIVER, GALLBLADDER, AND BILIARY TREE: The liver is enlarged measuring 19.6 cm craniocaudally but is otherwise normal in shape. There is a wedge-shaped region of hypoattenuation in the left hepatic lobe with no associated mass effect and with vessels running through it (3:13), favored to represent a perfusional abnormality or artifact, as this is not definitely identified on thin section axial images. Cholecystectomy. No biliary ductal dilatation. PANCREAS: Limited noncontrast examination, unremarkable.? SPLEEN: Limited noncontrast examination, unremarkable.? ADRENAL GLANDS: No adrenal mass.? KIDNEYS AND URETERS: Punctate nonobstructive calculus in the lower left kidney. No hydronephrosis. No perinephric fat stranding.? BLADDER: Unremarkable.? GASTROINTESTINAL TRACT: The small and large bowel are within normal limits. The appendix is not identified, possibly surgically removed with no regional inflammatory changes.? ABDOMINAL WALL: Fat-containing umbilical abdominal hernia with mild fat stranding.? LYMPH NODES: No pathologically enlarged lymph nodes. VASCULAR: Limited noncontrast examination. Abdominal aorta is of normal diameter. PELVIC VISCERA: There is a 2.6 cm water density cyst in the right adnexa, likely right ovary, unchanged since 01/09/2019.? OSSEOUS STRUCTURES: Asymmetric sclerosis of the right sacral alae and right SI joint (4:460), stable when compared to 01/09/2019.? CT/CT abdomen pelvis wo IV con IMPRESSION: 1.? Punctate nonobstructive calculus in the lower left kidney. No hydronephrosis. 2.? Hepatomegaly. 3.? Fat-containing umbilical abdominal hernia with mild fat stranding, correlate with physical examination. EXAMINATION: XR CHEST CLINICAL INFORMATION: Multiple complaints. COMPARISON: Chest radiograph 01/25/2021. TECHNIQUE: 2 views of the chest were obtained. FINDINGS: Stable appearance of the cardiomediastinal silhouette. No focal airspace opacity, pleural effusion or pneumothorax. Right upper quadrant surgical clips. No acute osseous abnormalities. XR/XR chest 2V IMPRESSION: No acute cardiopulmonary findings. ? External Record Review External record reviewed: Outpatient record and Prior outpatient labs Prescription Management I considered prescription management with: Pain Medication Flomax, Diflucan Chronic Conditions Patient?s care impacted by: Diabetes and Hypertension Discharge Plan Discharge Clinical Impression: HTN (hypertension), Hyperglycemia due to type 2 diabetes mellitus, Kidney stone, Candidiasis of genitalia, Hypomagnesemia Patient Disposition: Home, Self-Care Instructions: Kidney Stones (ED), Yeast Infection (ED), Hypertension (ED), Hypomagnesemia (ED), Diabetic Hyperglycemia (ED) Additional Instructions: You were evaluated for multiple concerns. CT scan of abdomen pelvis indicates a kidney stone to the left kidney. No indication of kidney infection. You do have a incidental finding of a fat containing umbilical abdominal hernia. Please follow-up with Dr. Hopkins as an outpatient for surgical consult. For kidney stone, Take Flomax daily for the next 14 days. Drink plenty of fluids. Your magnesium levels were low, we gave you magnesium IV during her emergency department stay. Please follow-up with primary care physician for repeat lab values to ensure that your magnesium levels are within normal limits. Your blood sugar was elevated at 400. You may need more medications to control your diabetes. Discussed this with your primary care physician. For pain management, Alternate Tylenol 650 mg every 6 hours and Motrin 600 mg every 6 hours as needed for pain and fever management. Consider taking these medications 3 hours apart so you have pain and fever management every 3 hours. Write down what time you take these medications to prevent accidental overdose. Thank you for choosing this emergency department for evaluation. Please follow-up with primary care physician as needed. Return to the emergency department for any new, concerning, or worsening symptoms. Prescriptions: New tamsulosin [Flomax] 0.4 mg capsule 0.4 mg PO DAILY 14 Days Qty: 14 0RF fluconazole [Diflucan] 150 mg tablet 150 mg PO Q3D Qty: 2 2RF Rx Instructions: may repeat second dose 72 hrs after first dose if symptoms persist ibuprofen 600 mg tablet 600 mg PO Q6H PRN (Reason: pain) Qty: 30 0RF No Action albuterol sulfate 90 mcg/actuation HFA aerosol inhaler 2 inh inhalation QID PRN (Reason: shortness of breath or wheezing) Qty: 8.5 8RF (DME) nebulizers Misc See Rx Instructions .Route Qty: 1 0RF Rx Instructions: to use every 4 hours as needed for wheezing hydrochlorothiazide 12.5 mg tablet 12.5 mg PO DAILY Qty: 90 1RF amlodipine 10 mg tablet 10 mg PO DAILY 30 Days Qty: 30 0RF Protocol: Hold for SBP< HOLD for SBP < : 90 aspirin 81 mg tablet,delayed release (DR/EC) 81 mg PO DAILY Qty: 81 8RF metformin 500 mg tablet 500 mg PO BID 30 Days Qty: 60 0RF (DME) blood-glucose meter [FreeStyle [place]] Kit See Rx Instructions .ROUTE .MEDSUPPLY Qty: 1 0RF Rx Instructions: As directed valacyclovir 500 mg tablet 1 tab PO DAILY labetalol 100 mg tablet 100 mg PO BID Qty: 60 8RF Protocol: Hold for SBP/HR < HOLD for SBP < : 90 HOLD for HR < : 60 albuterol sulfate 2.5 mg /3 mL (0.083 %) solution for nebulization inhalation Q4H PRN (Reason: muscle spasm) (DME) lancets [FreeStyle Lancets] 28 gauge misc See Rx Instructions .ROUTE .MEDSUPPLY Qty: 100 7RF Rx Instructions: BID As directed (DME) FreeStyle Lite Strips Strip See Rx Instructions .ROUTE .MEDSUPPLY Qty: 100 7RF Rx Instructions: BID As directed cyclobenzaprine 10 mg tablet 10 mg PO TID PRN (Reason: muscle spasm) Qty: 30 2RF sulfamethoxazole-trimethoprim [Bactrim DS] 800-160 mg tablet 1 tab PO BID Qty: 10 0RF gabapentin 300 mg capsule 300 mg PO BEDTIME 14 Days Qty: 14 0RF cholecalciferol (vitamin D3) 125 mcg (5,000 unit) capsule 125 mcg PO DAILY Qty: 30 2RF omeprazole 40 mg capsule,delayed release(DR/EC) 40 mg PO DAILY Qty: 14 0RF lisinopril 40 mg tablet 40 mg PO DAILY Qty: 90 3RF (DME) blood pressure monitor Kit See Rx Instructions .Route Qty: 1 0RF Rx Instructions: As directed Referrals: Derrek Hollingsworth MD [Primary Care Provider] - 2 weeks (Kidney stone, URI) Romulo Hopkins MD [Physician] - (Umbilical hernia) Stand Alone Forms: Work/School Release Interventions: ED Discharge Assessment Last Done: 04/03/22 19:22 Discharge Date/Time: 04/03/22 19:23
[2022-04-03 17:23] LABS: Influenza A PCR NEGATIVE (Negative); Influenza B PCR NEGATIVE (Negative); Resp Syncy Virus RNA Qual PCR NEGATIVE (Negative); SARS COV2 PCR INHOUSE NEGATIVE (Negative)
[2022-04-03] MEDS: 0.9 % Sodium Chloride 1,000 ML 999 ML IVCONT (17:35)
[2022-04-03] MEDS: Magnesium Sulfate/H2O 2 GM/50 ML PIGGYBACK IV (17:35)
[2022-04-03] MEDS: Morphine Sulfate 4 MG/ML CARTRIDGE IVPUSH (17:46)
[2022-04-03] MEDS: ondansetron HCL 4 MG/2 ML VIAL IVPUSH (17:46)
[2022-04-03 17:48] VITALS: BP 205/111; PULSE 96; RESP 20; O2SAT 98
[2022-04-03 18:48] VITALS: BP 210/112; PULSE 95; RESP 13; O2SAT 99
--- NOTE | 2022-04-03 19:15 | PC.NURSE ---
patient blood pressure continues to be high. SBP in the 200s. ED provider is aware. patient denies headache or dizziness.
[2022-04-03] MEDS: Labetalol HCL 100 MG TABLET PO (19:20)
== END 2022-04-03 19:23 | disposition home or self-care (01) ==
PROVIDERS: Physician Assistant Medical; Emergency Provider Internal Medicine; PCP Internal Medicine
DX: R07.89 Other chest pain (principal); R51.9 Headache, unspecified; M54.50 Low back pain, unspecified; M54.6 Pain in thoracic spine; Z20.828 Contact with and (suspected) exposure to other viral communicable diseases; Z20.822 Contact with and (suspected) exposure to COVID-19; Z79.899 Other long term (current) drug therapy; Z87.891 Personal history of nicotine dependence
CPT/HCPCS: 0241U; 36415; 71046; 74176; 80048; 80076; 81001; 82009; 83735; 84702; 85025; 93005; 96361; 96365; 96366; 96375; 99285; J2270; J2405; J3475

== ENCOUNTER 2022-04-25 19:38 | Emergency (ER) | payer OTHER, SELFPAY ==
--- NOTE | ~2022-04-25 | XR_ITS ---
EXAMINATION: XR CHEST CLINICAL INFORMATION: Cough, chest wall pain COMPARISON: None TECHNIQUE: 2 views of the chest were obtained. FINDINGS: No significant abnormality is noted involving the heart, lungs, mediastinum, bony thorax or soft tissues. XR/XR chest 2V IMPRESSION: Unremarkable chest examination.
[2022-04-25 20:00] VITALS: BP 179/96; PULSE 115; RESP 20; TEMP 37.1; O2SAT 98; BMI 36.6
--- NOTE | 2022-04-25 20:03 | ED_ITS ---
HPI - URI/Sore Throat General Chief Complaint: Upper Respiratory Symptoms <DULCE Dacosta Last Filed: 04/25/22 20:04> Stated Complaint: fatigue, r side body pain, throat pain <DULCE Dacosta Last Filed: 04/25/22 20:04> Time Seen by Provider: 04/25/22 21:26 <Mya Sharp NP - Last Filed: 04/25/22 20:04> Source: patient <DULCE Mclean Last Filed: 04/26/22 00:51> Mode of arrival: ambulatory <DULCE Mclean Last Filed: 04/26/22 00:51> Limitations: no limitations <DULCE Mclean Last Filed: 04/26/22 00:51> History of Present Illness HPI Narrative: 41-year-old male presents with cough, chills, body aches, headaches, chest wall pain because of coughing, and sore throat. She states it is difficult for her to sleep because of her sore throat, she feels like she is choking and that it is very dry. She does report intermittent subjective fevers, chills, and fatigue. <DULCE Mclean Last Filed: 04/26/22 00:51> MD elicited complaint: fever, cough, sore throat and nasal congestion <DULCE Mclean Last Filed: 04/26/22 00:51> Onset (ago): week(s) <DULCE Mclean Last Filed: 04/26/22 00:51> Consistency: constant and progressively worsening <DULCE Mclean Last Filed: 0 04/26/22 00:51> Severity: moderate <DULCE Mclean Last Filed: 04/26/22 00:51> Pain scale (0-10): 7 <DULCE Mclean Last Filed: 04/26/22 00:51> Description of mucous: clear <DULCE Mclean Last Filed: 04/26/22 00:51> Able to tolerate fluids by mouth: Yes <DULCE Mclean Last Filed: 04/26/22 00:51> Exacerbating factors: swallowing and speaking <Susana Vogel NP - Last Filed: 04/26/22 00:51> Relieving factors: nothing <Susana Vogel NP - Last Filed: 04/26/22 00:51> Context: sick contacts <Susana Vogel NP - Last Filed: 04/26/22 00:51> Associated symptoms: fever, chills, voice changes, headache, rhinorrhea, nasal congestion, sore throat, cough and ear pain <Susana Vogel NP - Last Filed: 04/26/22 00:51> Treatments prior to arrival: none <Susana Vogel NP - Last Filed: 04/26/22 00:51> Related Data Home Medications: Home Medications Medication Instructions Recorded Confirmed valacyclovir 500 mg tablet 1 tab PO DAILY 07/21/21 12/14/21 albuterol sulfate 2.5 mg/3 mL mg inhalation Q4H PRN muscle spasm 11/30/21 12/14/21 (0.083 %) solution for nebulization Previous Rx's Medication Instructions Recorded blood-glucose meter (FreeStyle #1 ea 09/05/20 [place] kit) labetalol 100 mg tablet 100 mg PO BID #60 tabs 09/10/20 cholecalciferol (vitamin D3) 125 125 mcg PO DAILY #30 caps 02/26/21 mcg (5,000 unit) capsule omeprazole 40 mg capsule,delayed 40 mg PO DAILY #14 caps 02/26/21 release nebulizers #1 ea 06/17/21 lisinopril 40 mg tablet 40 mg PO DAILY #90 tabs 06/22/21 gabapentin 300 mg capsule 300 mg PO BEDTIME 14 days #14 caps 07/27/21 blood pressure monitor #1 ea 08/03/21 blood sugar diagnostic (FreeStyle #100 ea 11/30/21 Lite Strips) cyclobenzaprine 10 mg tablet 10 mg PO TID PRN muscle spasm #30 11/30/21 tabs lancets 28 gauge (FreeStyle #100 ea 11/30/21 Lancets) hydrochlorothiazide 12.5 mg tablet 12.5 mg PO DAILY #90 tabs 12/10/21 sulfamethoxazole 800 1 tab PO BID #10 tabs 12/10/21 mg-trimethoprim 160 mg tablet (Bactrim DS) amlodipine 10 mg tablet 10 mg PO DAILY 30 days #30 tabs 01/22/22 aspirin 81 mg tablet,delayed 81 mg PO DAILY #81 tabs 02/16/22 release fluconazole 150 mg tablet 150 mg PO Q3D 2 doses #2 tabs 04/03/22 (Diflucan) ibuprofen 600 mg tablet 600 mg PO Q6H PRN pain #30 tabs 04/03/22 metformin 500 mg tablet 500 mg PO BID 30 days #60 tabs 04/03/22 tamsulosin 0.4 mg capsule (Flomax) 0.4 mg PO DAILY 14 days #14 caps 04/03/22 albuterol sulfate 90 mcg/actuation 2 inh inhalation QID PRN shortness 04/05/22 aerosol inhaler of breath or wheezing #8.5 grams albuterol sulfate 0.63 mg/3 mL 0.63 mg (3 mL) inhalation Q4-6H 04/25/22 solution for nebulization PRN shortness of breath or wheezing #90 mL albuterol sulfate 90 mcg/actuation 2 inh inhalation Q4-6H PRN 04/25/22 breath activated powder shortness of breath or wheezing #1 inhaler,sensor ea amoxicillin 875 mg-potassium 1 tab PO Q12H 10 days #20 tabs 04/25/22 clavulanate 125 mg tablet prednisone 20 mg tablet 40 mg PO DAILY 5 days #10 tabs 04/25/22 <Mya Sharp NP - Last Filed: 04/25/22 20:04> Allergies/Adverse Reactions: Allergies Allergy/AdvReac Type Severity Reaction Status Date / Time Iodinated Contrast Media Allergy Intermediate Anaphylaxis Verified 12/28/21 11:14 latex [Latex] Allergy Unknown RASH Verified 12/28/21 11:14 <Mya Sharp NP - Last Filed: 04/25/22 20:04> Review of Systems Review of Systems: Constitutional: positive Fever, positive Chills, positive fatigue, positive Malaise ENT/Mouth: positive sore throat, positive runny nose, positive bilateral ear pain Eyes: No Discharge Cardiovascular: Positive Chest wall Pain, No SOB Respiratory: Positive Cough, No Sputum, No Wheezing, No Dyspnea Gastrointestinal: No Nausea, No Vomiting, No Diarrhea Musculoskeletal: positive Myalgia Skin: No rash Neuro: Positive Headache <Susana Vogel NP - Last Filed: 04/26/22 00:51> Yes all other systems are reviewed and are negative <Susana Vogel NP - Last Filed: 04/26/22 00:51> [facility] Past Medical History Attestation statement: The following information was validated with the patient. <Susana Vogel NP - Last Filed: 04/26/22 00:51> Source: old records reviewed <Susana Vogel NP - Last Filed: 04/26/22 00:51> Medical History: Medical History Anemia Asthma Bilateral hand numbness Bilateral hand pain Diabetes mellitus DJD (degenerative joint disease) GERD (gastroesophageal reflux disease) HSV (herpes simplex virus) infection HTN (hypertension) Obesity Smoking TIA (transient ischemic attack) <Mya Sharp NP - Last Filed: 04/25/22 20:04> Surgical History: Surgical History H/O cardiac catheterization Hx of appendectomy Hx of section Hx of cholecystectomy Hx of tubal ligation <Mya Sharp NP - Last Filed: 04/25/22 20:04> Family History Family History: Family History Mother Heart disease Diabetes Hypertension Hyperlipidemia Fibromyalgia Father No problems noted. Brother No problems noted. Brother No problems noted. Brother No problems noted. Sister Deep vein thrombosis Son No problems noted. Son No problems noted. Daughter Hypertension Daughter No problems noted. Maternal Aunt History of breast cancer <Mya Sharp NP - Last Filed: 04/25/22 20:04> Social History Social History: Social History Household Members: Children Housing: Apartment Do you presently have visiting nurse or other home services: No Alcohol intake: never Patient Tobacco Use Status: Former Tobacco user Tobacco use type: Cigarette Cigarettes Per Day: 3 e-Cigarette/Vaping Use: Never Used Second Hand Smoke Exposure: Yes Advance Directives: No Advance Directives Information Provided: No service: No Current occupational status: employed Cognitive needs: No Hearing needs: No Vision needs: Yes (glasses) <Myaedgar Sharp NP - Last Filed: 04/25/22 20:04> Physical Exam Vital Signs: Vital Signs: Last Vital Signs Temp 98.7 F 04/25/22 20:00 Pulse 115 H 04/25/22 20:00 Resp 20 04/25/22 20:00 BP 179/96 H 04/25/22 20:00 Pulse Ox 98 04/25/22 20:00 O2 Del Method 04/25/22 20:00 BMI result Body Mass Index 36.6 <Mya Mary KayDULCE elliott - Last Filed: 04/25/22 20:04> Vital Signs: Last Vital Signs Temp 98.7 F 04/25/22 20:00 Pulse 115 H 04/25/22 20:00 Resp 20 04/25/22 20:00 BP 179/96 H 04/25/22 20:00 Pulse Ox 98 04/25/22 20:00 O2 Del Method 04/25/22 20:00 BMI result Body Mass Index 36.6 <Susana Vogel NP - Last Filed: 04/26/22 00:51> Appearance: Alert. Oriented X3. No acute distress. Eyes: Pupils equal, round and reactive to light. ENT: Pharynx erythematous, bilateral tonsillar exudates, Centor scale 3. Posterior and anterior cervical lymphadenopathy. No mastoid tenderness. Bilateral otitis media with erythematous tympanic membranes With effusions. Neck: Normal inspection. Neck supple. No nuchal rigidity. No vertebral tenderness or step-offs. CVS: Tachycardic heart rate and rhythm. Pulses normal. Respiratory: No respiratory distress. Breath sounds normal. Abdomen: Soft and nontender. Skin: Skin warm and dry. Normal skin color. Normal skin turgor. Extremities: No lower extremity edema. Gait well-balanced well coordinated. Neuro: No motor deficit. No sensory deficit. Cranial nerves 2-12 intact. <Susana Vogel NP - Last Filed: 04/26/22 00:51> Course Course Course Narrative: This is a rapid medical exam. Defer additional HPI, ROS, PE department provider. 41-year-old female with history of diabetes, hypertension, asthma presents with complaints of chest wall pain, cough, fatigue, sore throat x 1 week. Will obtain viral testing, CXR. VSS with exception of mild hypertension. <Mya Sharp NP - Last Filed: 04/25/22 20:04> This is a rapid medical exam. Defer additional HPI, ROS, PE department provider. 41-year-old female with history of diabetes, hypertension, asthma presents with complaints of chest wall pain, cough, fatigue, sore throat x 1 week. Will obtain viral testing, CXR. VSS with exception of mild hypertension. 41-year-old female presents with upper respiratory symptoms and wheeze. COVID influenza RSV drawn while she was in the emergency department waiting room which are negative. Maurilio extremity. Physical exam indicates bilateral otitis media with pharyngeal erythema with bilateral tonsillar exudates. She has posterior anterior cervical lymphadenopathy and bilateral otitis media. Will add on a strep test. Chest x-rays negative for acute findings. Strep test is negative however I feel that this patient is clinically positive for strep pharyngitis. Considering that she has clinical pharyngitis, and bilateral otitis media, will treat with Augmentin. Patient is out of her albut jez nebs and albuterol inhaler, will treat with prednisone for asthma exacerbation, and refill her nebs and inhaler. Patient verbalized understanding of and agrees to plan of care discharge home. Verbalized understanding of signs and symptoms indicating need for emergent intervention. <Susana Vogel NP - Last Filed: 04/26/22 00:51> Medications Administered Discontinued Medications Generic Name Dose Route Start Last Admin Trade Name Freq PRN Reason Stop Dose Admin Amoxicillin/Clavulanate Potassium 875 mg 04/25/22 21:37 04/25/22 22:27 Amoxicillin/Potassium Clav 875 Mg Tablet PO 04/25/22 21:38 875 mg ONCE ONE Administration Prednisone 40 mg 04/25/22 21:37 04/25/22 22:27 Prednisone 20 Mg Tablet PO 04/25/22 21:38 40 mg ONCE ONE Administration <Mya Sharp NP - Last Filed: 04/25/22 20:04> Medications Administered Discontinued Medications Generic Name Dose Route Start Last Admin Trade Name Freq PRN Reason Stop Dose Admin Amoxicillin/Clavulanate Potassium 875 mg 04/25/22 21:37 04/25/22 22:27 Amoxicillin/Potassium Clav 875 Mg Tablet PO 04/25/22 21:38 875 mg ONCE ONE Administration Prednisone 40 mg 04/25/22 21:37 04/25/22 22:27 Prednisone 20 Mg Tablet PO 04/25/22 21:38 40 mg ONCE ONE Administration <Susana Vogel NP - Last Filed: 04/26/22 00:51> Medical Decision Making Differential Diagnosis Differential Diagnoses: The differential diagnosis associated with the presentation includes <Susana Vogel NP - Last Filed: 04/26/22 00:51> Asthma exacerbation, strep pharyngitis, otitis media, COVID, influenza, R SV <Susana Vogel NP - Last Filed: 04/26/22 00:51> Lab Data MDM Lab Attestation statement: I reviewed the patient's lab results. <Susana Vogel NP - Last Filed: 04/26/22 00:51> Labs: Lab Results 04/25/22 04/25/22 Range/Units 20:17 20:17 Influenza Type A (PCR) NEGATIVE (Negative) Influenza Type B (PCR) NEGATIVE (Negative) RSV RNA Qual (PCR) NEGATIVE (Negative) SARS-CoV-2 RNA (RT-PCR) NEGATIVE (Negative) S. pyogenes GrpA BENITA Negative (Negative) <Mya Sharp NP - Last Filed: 04/25/22 20:04> Lab Results 04/25/22 04/25/22 Range/Units 20:17 20:17 Influenza Type A (PCR) NEGATIVE (Negative) Influenza Type B (PCR) NEGATIVE (Negative) RSV RNA Qual (PCR) NEGATIVE (Negative) SARS-CoV-2 RNA (RT-PCR) NEGATIVE (Negative) S. pyogenes GrpA BENITA Negative (Negative) <Susana Vogel NP - Last Filed: 04/26/22 00:51> Independent Interpretation I performed an independent interpretation of an: Plain X-Ray <Susana Vogel NP - Last Filed: 04/26/22 00:51> Radiology Impression Discussion of test interpretation with radiology: I have reviewed the radiologist's reading. <Susana Vogel NP - Last Filed: 04/26/22 00:51> Radiologist Impression: EXAMINATION: XR CHEST CLINICAL INFORMATION: Cough, chest wall pain COMPARISON: None TECHNIQUE: 2 views of the chest were obtained. FINDINGS: No significant abnormality is noted involving the heart, lungs, mediastinum, bony thorax or soft tissues. XR/XR chest 2V IMPRESSION: Unremarkable chest examination. <Susana Vogel NP - Last Filed: 04/26/22 00:51> External Record Review External record reviewed: Outpatient record and Prior outpatient labs <Susana Vogel NP - Last Filed: 04/26/22 00:51> Prescription Management I considered prescription management with: Pain Medication (Tylenol Motrin) and Antibiotic <Susana Vogel NP - Last Filed: 04/26/22 00:51> Chronic Conditions Patient?s care impacted by: Diabetes and Hypertension <Susana Vogel NP - Last Filed: 04/26/22 00:51> Discharge Plan Discharge Clinical Impression: Pharyngitis, Asthma <Mya Sharp NP - Last Filed: 04/25/22 20:04> Patient Disposition: Home, Self-Care <Mya Sharp NP - Last Filed: 04/25/22 20:04> Instructions: Asthma (ED), Pharyngitis (ED) <Mya Sharp NP - Last Filed: 04/25/22 20:04> Additional Instructions: You were evaluated for upper respiratory symptoms. COVID influenza RSV tests are negative. Your symptoms are consistent with pharyngitis and asthma exacerbation. For strep pharyngitis please take Augmentin 875 mg every 12 hours for the next 10 days. For asthma exacerbation, please take prednisone 40 mg daily for the next 5 days. Start this medication on 04/26/2022, we gave you 1st dose in the emergency depa rtment. Take albuterol inhaler as needed for wheezing, use albuterol nebs as directed for wheezing and shortness of breath not relieved by your inhaler. Thank you for choosing this emergency department for evaluation. Please follow-up with primary care physician as needed. Return to the emergency department for any new, concerning, or worsening symptoms. <Mya Sharp NP - Last Filed: 04/25/22 20:04> Prescriptions: New albuterol sulfate 90 mcg/actuation aero powdr breath act w/sensor 2 inh inhalation Q4-6H PRN (Reason: shortness of breath or wheezing) Qty: 1 0RF Rx Instructions: May dispense medication equivalent accepted by patient's insurance albuterol sulfate 0.63 mg/3 mL solution for nebulization 0.63 mg inhalation Q4-6H PRN (Reason: shortness of breath or wheezing) Qty: 90 0RF Rx Instructions: May dispense medication equivalent accepted by patient's insurance amoxicillin-pot clavulanate 875-125 mg tablet 1 tab PO Q12H 10 Days Qty: 20 0RF prednisone 20 mg tablet 40 mg PO DAILY 5 Days Qty: 10 0RF No Action (DME) nebulizers Misc See Rx Instructions .Route Qty: 1 0RF Rx Instructions: to use every 4 hours as needed for wheezing hydrochlorothiazide 12.5 mg tablet 12.5 mg PO DAILY Qty: 90 1RF amlodipine 10 mg tablet 10 mg PO DAILY 30 Days Qty: 30 0RF Protocol: Hold for SBP< HOLD for SBP < : 90 aspirin 81 mg tablet,delayed release (DR/EC) 81 mg PO DAILY Qty: 81 8RF metformin 500 mg tablet 500 mg PO BID 30 Days Qty: 60 0RF albuterol sulfate 90 mcg/actuation HFA aerosol inhaler 2 inh inhalation QID PRN (Reason: shortness of breath or wheezing) Qty: 8.5 8RF (DME) blood-glucose meter [[employer] [place]] Kit See Rx Instructions .ROUTE .MEDSUPPLY Qty: 1 0RF Rx Instructions: As directed valacyclovir 500 mg tablet 1 tab PO DAILY tamsulosin [Flomax] 0.4 mg capsule 0.4 mg PO DAILY 14 Days Qty: 14 0RF fluconazole [Diflucan] 150 mg tablet 150 mg PO Q3D Qty: 2 2RF Rx Instructions: may repeat second dose 72 hrs after first dose if symptoms persist ibuprofen 600 mg tablet 600 mg PO Q6H PRN (Reason: pain) Qty: 30 0RF labetalol 100 mg tablet 100 mg PO BID Qty: 60 8RF Protocol: Hold for SBP/HR < HOLD for SBP < : 90 HOLD for HR < : 60 albuterol sulfate 2.5 mg /3 mL (0.083 %) solution for nebulization inhalation Q4H PRN (Reason: muscle spasm) (DME) lancets [FreeStyle Lancets] 28 gauge misc See Rx Instructions .ROUTE .MEDSUPPLY Qty: 100 7RF Rx Instructions: BID As directed (DME) FreeStyle Lite Strips Strip See Rx Instructions .ROUTE .MEDSUPPLY Qty: 100 7RF Rx Instructions: BID As directed cyclobenzaprine 10 mg tablet 10 mg PO TID PRN (Reason: muscle spasm) Qty: 30 2RF sulfamethoxazole-trimethoprim [Bactrim DS] 800-160 mg tablet 1 tab PO BID Qty: 10 0RF gabapentin 300 mg capsule 300 mg PO BEDTIME 14 Days Qty: 14 0RF cholecalciferol (vitamin D3) 125 mcg (5,000 unit) capsule 125 mcg PO DAILY Qty: 30 2RF omeprazole 40 mg capsule,delayed release(DR/EC) 40 mg PO DAILY Qty: 14 0RF lisinopril 40 mg tablet 40 mg PO DAILY Qty: 90 3RF (DME) blood pressure monitor Kit See Rx Instructions .Route Qty: 1 0RF Rx Instructions: As directed <Mya Sharp NP - Last Filed: 04/25/22 20:04> Referrals: Derrek Hollingsworth MD [Primary Care Provider] - 2 weeks (As needed for URI symptoms) <Mya Sharp NP - Last Filed: 04/25/22 20:04> Stand Alone Forms: Work/School Release <Mya Sharp NP - Last Filed: 04/25/22 20:04> Interventions: ED Discharge Assessment Last Done: 04/25/22 22:29 <Mya Sharp NP - Last Filed: 04/25/22 20:04> Discharge Date/Time: 04/25/22 22:30 <Mya Sharp NP - Last Filed: 04/25/22 20:04>
[2022-04-25 20:33] LABS: IDNOW Serial# 6674DD1D; Strep A Nucleic Acid Negative (Negative)
[2022-04-25 21:00] LABS: Influenza A PCR NEGATIVE (Negative); Influenza B PCR NEGATIVE (Negative); Resp Syncy Virus RNA Qual PCR NEGATIVE (Negative); SARS COV2 PCR INHOUSE NEGATIVE (Negative)
[2022-04-25] MEDS: predniSONE 20 MG TABLET 40 MG PO (22:27)
[2022-04-25] MEDS: Amoxicillin/Potassium Clav 875 MG TABLET PO (22:27)
== END 2022-04-25 22:30 | disposition home or self-care (01) ==
PROVIDERS: Nurse Practitioner Family; Emergency Provider Internal Medicine; PCP Internal Medicine
DX: J02.9 Acute pharyngitis, unspecified (principal); J45.909 Unspecified asthma, uncomplicated; M79.10 Myalgia, unspecified site; R00.0 Tachycardia, unspecified; R51.9 Headache, unspecified; R05.9 Cough, unspecified; Z20.822 Contact with and (suspected) exposure to COVID-19; Z20.828 Contact with and (suspected) exposure to other viral communicable diseases; Z79.899 Other long term (current) drug therapy
CPT/HCPCS: 0241U; 36415; 71046; 87651; 99282; 99283

== ENCOUNTER 2022-05-11 18:47 | Emergency (ER) | payer OTHER, SELFPAY ==
--- NOTE | ~2022-05-11 | XR_ITS ---
EXAMINATION: XR CHEST CLINICAL INFORMATION: Chest pain and shortness of breath COMPARISON: 04/25/2022 TECHNIQUE: 2 views of the chest were obtained. FINDINGS: The lungs are well expanded. There is no focal consolidation, edema, or effusion. No pneumothorax. The cardiomediastinal silhouette is within normal limits. No acute osseous abnormality. XR/XR chest 2V IMPRESSION: Clear lungs.
--- NOTE | 2022-05-11 18:53 | ECG_ITS ---
Test Reason : cp Blood Pressure : / mmHG Vent. Rate : 117 BPM Atrial Rate : 117 BPM P-R Int : 144 ms QRS Dur : 082 ms QT Int : 352 ms P-R-T Axes : 057 -25 143 degrees QTc Int : 491 ms Sinus tachycardia Possible Left atrial enlargement Left ventricular hypertrophy ( R in aVL , Neptali product ) Marked ST abnormality, possible lateral subendocardial injury Abnormal ECG When compared with ECG of 03-APR-2022 16:22, No significant change was found Referred By: Generic ED Physician Electronically Signed By:Marlon Mclain
[2022-05-11 19:32] VITALS: BP 188/114; PULSE 119; RESP 22; TEMP 38.6; O2SAT 98; BMI 36.6
--- NOTE | 2022-05-11 19:35 | ED.CHESTPAIN ---
HPI - Chest Pain General Chief Complaint: Chest Pain <Carolin Hughes CNP - Last Filed: 05/11/22 19:46> Stated Complaint: Chest pain, headache, hotflashes <Carolin Hughes CNP - Last Filed: 05/11/22 19:46> Time Seen by Provider: 05/11/22 21:02 <Carolin Hughes CNP - Last Filed: 05/11/22 19:46> Source: patient <Crystal Baez MD - Last Filed: 05/12/22 01:21> Mode of arrival: ambulatory <Crystal Baez MD - Last Filed: 05/12/22 01:21> Limitations: no limitations <Crystal Baez MD - Last Filed: 05/12/22 01:21> History of Present Illness HPI narrative: 41-year-old female came in for evaluation of generalized body ache, chest pain, bilateral flank pain, increased urinary frequency. With history of hypertension, diabetes, asthma, obesity presented with chest pain and heaviness/epigastric pain patient had a prior admission for chest pain with elevated troponin (patient has chronic troponin elevation) was seen by Dr. Owen patient had cardiac catheterization which revealed normal coronary artery, echocardiogram last year was done showing moderate diastolic dysfunction and mild mitral regurgitation and elevated troponin was related to chronic elevation of blood pressure <Crystal Baez MD - Last Filed: 05/12/22 01:21> Related Data Home Medications: Home Medications Medication Instructions Recorded Confirmed valacyclovir 500 mg tablet 1 tab PO DAILY 07/21/21 12/14/21 albuterol sulfate 2.5 mg/3 mL mg inhalation Q4H PRN muscle spasm 11/30/21 12/14/21 (0.083 %) solution for nebulization Previous Rx's Medication Instructions Recorded blood-glucose meter (FreeStyle #1 ea 09/05/20 Tyronza kit) labetalol 100 mg tablet 100 mg PO BID #60 tabs 09/10/20 cholecalciferol (vitamin D3) 125 125 mcg PO DAILY #30 caps 02/26/21 mcg (5,000 unit) capsule omeprazole 40 mg capsule,delayed 40 mg PO DAILY #14 caps 02/26/21 release nebulizers #1 ea 06/17/21 lisinopril 40 mg tablet 40 mg PO DAILY #90 tabs 06/22/21 gabapentin 300 mg capsule 300 mg PO BEDTIME 14 days #14 caps 07/27/21 blood pressure monitor #1 ea 08/03/21 blood sugar diagnostic (FreeStyle #100 ea 11/30/21 Lite Strips) cyclobenzaprine 10 mg tablet 10 mg PO TID PRN muscle spasm #30 11/30/21 tabs lancets 28 gauge (FreeStyle #100 ea 11/30/21 Lancets) hydrochlorothiazide 12.5 mg tablet 12.5 mg PO DAILY #90 tabs 12/10/21 sulfamethoxazole 800 1 tab PO BID #10 tabs 12/10/21 mg-trimethoprim 160 mg tablet (Bactrim DS) aspirin 81 mg tablet,delayed 81 mg PO DAILY #81 tabs 02/16/22 release fluconazole 150 mg tablet 150 mg PO Q3D 2 doses #2 tabs 04/03/22 (Diflucan) ibuprofen 600 mg tablet 600 mg PO Q6H PRN pain #30 tabs 04/03/22 tamsulosin 0.4 mg capsule (Flomax) 0.4 mg PO DAILY 14 days #14 caps 04/03/22 albuterol sulfate 90 mcg/actuation 2 inh inhalation QID PRN shortness 04/05/22 aerosol inhaler of breath or wheezing #8.5 grams albuterol sulfate 0.63 mg/3 mL 0.63 mg (3 mL) inhalation Q4-6H 04/25/22 solution for nebulization PRN shortness of breath or wheezing #90 mL albuterol sulfate 90 mcg/actuation 2 inh inhalation Q4-6H PRN 04/25/22 breath activated powder shortness of breath or wheezing #1 inhaler,sensor ea amoxicillin 875 mg-potassium 1 tab PO Q12H 10 days #20 tabs 04/25/22 clavulanate 125 mg tablet prednisone 20 mg tablet 40 mg PO DAILY 5 days #10 tabs 04/25/22 amlodipine 10 mg tablet 10 mg PO DAILY 30 days #30 tabs 04/26/22 metformin 500 mg tablet 500 mg PO BID 30 days #60 tabs 04/26/22 <Carolin Hughes, JUNIE - Last Filed: 05/11/22 19:46> Allergies/Adverse Reactions: Allergies Allergy/AdvReac Type Severity Reaction Status Date / Time Iodinated Contrast Media Allergy Intermediate Anaphylaxis Verified 05/11/22 19:38 latex [Latex] Allergy Unknown RASH Verified 05/11/22 19:38 <Carolin Hughes CNP - Last Filed: 05/11/22 19:46> Review of Systems Review of Systems: All other systems are reviewed and are negative Constitutional: Reports as per HPI and Reports no additional constitutional complaints Eyes: Reports as per HPI and Reports no additional eye complaints Reports system reviewed and no additional complaints, except as documented Cardiovascular: Reports as per HPI and Reports no additional cardiovascular complaints Respiratory: Reports as per HPI and Reports no additional respiratory complaints Gastrointestinal: Reports as per HPI and Reports no additional gastrointestinal complaints Genitourinary: Reports no additional female genitourinary complaints Musculoskeletal: Reports no additional musculoskeletal complaints Skin/Breast: Reports system reviewed and no additional complaints, except as docu Psychiatric: Reports no additional psychiatric complaints Endocrine: Reports no additional endocrine complaints Hematologic/Lymphatic: Reports no additional hematologic/lymphatic complaints Allergic/Immunologic: Reports no additional allergic/immunologic complaints Reports system reviewed and no additional complaints, except as documented and Reports Abnormal speech present <Crystal Baez MD - Last Filed: 05/12/22 01:21> [facility] Past Medical History Medical History: Medical History Anemia Asthma Bilateral hand numbness Bilateral hand pain Diabetes mellitus DJD (degenerative joint disease) GERD (gastroesophageal reflux disease) HSV (herpes simplex virus) infection HTN (hypertension) Obesity Smoking TIA (transient ischemic attack) <Carolin Hughes CNP - Last Filed: 05/11/22 19:46> Surgical History: Surgical History H/O cardiac catheterization Hx of appendectomy Hx of section Hx of cholecystectomy Hx of tubal ligation <Carolin Hughes CNP - Last Filed: 05/11/22 19:46> Family History Family History: Family History Mother Heart disease Diabetes Hypertension Hyperlipidemia Fibromyalgia Father No problems noted. Brother No problems noted. Brother No problems noted. Brother No problems noted. Sister Deep vein thrombosis Son No problems noted. Son No problems noted. Daughter Hypertension Daughter No problems noted. Maternal Aunt History of breast cancer <Carolin Hughes CNP - Last Filed: 05/11/22 19:46> Social History Social History: Social History Household Members: Children Housing: Apartment Do you presently have visiting nurse or other home services: No Alcohol intake: never Patient Tobacco Use Status: Former Tobacco user Tobacco use type: Cigarette Cigarettes Per Day: 3 e-Cigarette/Vaping Use: Never Used Second Hand Smoke Exposure: Yes Advance Directives: No Advance Directives Information Provided: No service: No Current occupational status: employed Cognitive needs: No Hearing needs: No Vision needs: Yes (glasses) <Carolin Hughes CNP - Last Filed: 05/11/22 19:46> Physical Exam Vital Signs: Vital Signs: Last Vital Signs Temp 99.1 F 05/12/22 00:00 Pulse 101 H 05/12/22 00:00 Resp 18 05/12/22 00:00 BP 172/83 H 05/12/22 00:00 Pulse Ox 98 05/12/22 00:00 O2 Del Method 05/12/22 00:00 BMI result Body Mass Index 36.6 <Caroiln Hughes CNP - Last Filed: 05/11/22 19:46> Vital Signs: Last Vital Signs Temp 99.1 F 05/12/22 00:00 Pulse 101 H 05/12/22 00:00 Resp 18 05/12/22 00:00 BP 172/83 H 05/12/22 00:00 Pulse Ox 98 05/12/22 00:00 O2 Del Method 05/12/22 00:00 BMI result Body Mass Index 36.6 Vital signs have been reviewed as appeared to be correct. Blood pressure normal. Heart rate elevated. Respiration rate normal. Temperature normal. Oxygen saturation normal. <Crystal Baez MD - Last Filed: 05/12/22 01:21> Appearance: Alert. Oriented X3. No acute distress. Head: Normal external exam. Normocephalic. Atraumatic. No Sandoval signs noted. No raccoon eyes noted Eyes: PERRLA. EOMI. Conjunctiva and sclera normal. Eyelids normal. ENT: TM's Normal. Pharynx normal. Uvula midline. Moist mucous membranes. No trismus noted. No drooling noted. No muffled voice noted. Neck: Normal inspection. Neck supple. FROM. No adenopathy. Thyroid Normal. No meningeal signs. No neck mass noted. CVS: Normal heart rate and rhythm. Heart sound normal. No murmurs noted. Pulses normal throughout. Respiratory: No respiratory distress. Painless inspiration. Breath sounds normal. No wheezes/rales/rhonchi noted. Chest nontender. No accessory muscle usage noted or decreased air movement noted. Abdomen: Soft and nontender. Bowel sounds normal in all 4 quadrants. No distention noted. No organomegaly noted. No visible injury noted. Back: No CVA tenderness. Full range of motion noted. Skin: Skin warm and dry. Normal skin color. Normal skin turgor. No rashes/lesions/lacerations noted. Extremities: No lower extremity edema. Extremities exhibit normal range of motion. Extremities nontender. Neuro: Oriented X 3. Cranial nerve exam: II-XII are grossly intact No motor deficit. No sensory deficit. Reflexes normal. <Crystal Baez MD - Last Filed: 05/12/22 01:21> Course Course Course Narrative: This is an RME: Additional HPI, ROS, PE not included below will be deferred to primary provider. Patient is a 41-year-old female who presents to emergency department with multiple complaints. Symptom onset last night. Chest pain described as tightness, lightheadedness, body aches, diffuse abdominal pain, radiates into the bilateral lower back, vaginal itching. Denies dysuria, frequency/urgency/hesitancy. Also reporting nausea, without vomiting. Denies any known sick contacts. Febrile 101.5, tachycardic 120s, hypertensive 188/114 Plan: Labs, EKG, viral testing, chest x-ray, meeting SIRS criteria will obtain blood cultures and lactic acid. At this time, concern for likely viral etiology, battery charger conveyor line made aware of patient. She will be medicated with acetaminophen and ibuprofen <Carolin Hughes CNP - Last Filed: 05/11/22 19:46> Reevaluation(s) Reevaluation #1: 41-year-old female came in for evaluation of fever and generalized body ache high suspicion of viral syndrome, patient tested negative for COVID 19/influenza a/influenza B., chest x-ray is unremarkable for pneumonia patient has no coughing, UA indicating no UTI. Patient now feels better after hydration and heart rate is better, patient is afebrile, able to tolerate p.o. intake in the emergency department. Chronic leukocytosis with no left shift. Chronic troponin elevation without delta changes had a prior cardiac evaluation by Dr. Owen related high troponin to chronic hypertension. Patient feeling better will discharge instructed to follow-up with PCP and return to the ED if not improving or feeling worse. <Crystal Baez MD - Last Filed: 05/12/22 01:21> Time: 01:09 <Crystal Baez MD - Last Filed: 05/12/22 01:21> Medications Administered Discontinued Medications Generic Name Dose Route Start Last Admin Trade Name Freq PRN Reason Stop Dose Admin Acetaminophen 975 mg 05/11/22 19:38 05/11/22 19:45 Acetaminophen 325 Mg Tablet PO 05/11/22 19:39 975 mg ONCE ONE Administration Sodium Chloride 2,721.54 mls @ 2,721.54 mls/hr 05/11/22 20:44 05/11/22 21:05 Ns 30 ml/kg infuse over 1 hr (2721.54 ml) 05/11/22 21:43 2,721.54 mls/hr IV Administration .Q1H STA Ibuprofen 600 mg 05/11/22 19:38 05/11/22 19:45 Ibuprofen 600 Mg Tablet PO 05/11/22 19:39 600 mg ONCE ONE Administration <Carolin Hughes CNP - Last Filed: 05/11/22 19:46> Medications Administered Discontinued Medications Generic Name Dose Route Start Last Admin Trade Name Freq PRN Reason Stop Dose Admin Acetaminophen 975 mg 05/11/22 19:38 05/11/22 19:45 Acetaminophen 325 Mg Tablet PO 05/11/22 19:39 975 mg ONCE ONE Administration Sodium Chloride 2,721.54 mls @ 2,721.54 mls/hr 05/11/22 20:44 05/11/22 21:05 Ns 30 ml/kg infuse over 1 hr (2721.54 ml) 05/11/22 21:43 2,721.54 mls/hr IV Administration .Q1H STA Ibuprofen 600 mg 05/11/22 19:38 05/11/22 19:45 Ibuprofen 600 Mg Tablet PO 05/11/22 19:39 600 mg ONCE ONE Administration <Crystal Baez MD - Last Filed: 05/12/22 01:21> Medical Decision Making Differential Diagnosis Differential Diagnoses: The differential diagnosis associated with the presentation includes (ACS, pneumonia, UTI, viral syndrome, influenza infection, COVID 19 infection, dehydration.) <Crystal Baez MD - Last Filed: 05/12/22 01:21> Lab Data MDM Lab Attestation statement: I reviewed the patient's lab results. <Crystal Baez MD - Last Filed: 05/12/22 01:21> Result Diagrams: 05/11/22 19:53 05/11/22 19:53 <Carolin Hughes CNP - Last Filed: 05/11/22 19:46> Labs: Lab Results 05/11/22 05/11/22 05/11/22 Range/Units 19:49 19:49 19:53 WBC 13.5 H (4.8-10.8) X10*3/uL RBC 5.76 H (4.20-5.50) X10*6/uL Hgb 12.7 (12.0-16.0) g/dl Hct 40.3 (37.0-47.0) % MCV 70.0 L (80.0-98.0) fL MCH 22.0 L (27.0-33.0) pg MCHC 31.5 (31.0-35.0) g/dl RDW 18.7 H (11.0-16.0) % Plt Count 282 (160-400) X10*3/uL MPV 10.7 (9.4-12.3) fL Immature Gran % (Auto) 0.4 (0.0-0.4) % Neut % (Auto) 81.0 H (45-73) % Lymph % (Auto) 13.8 L (20-40) % [place] % (Auto) 4.3 (2-11) % Eos % (Auto) 0.3 (0-4) % Baso % (Auto) 0.2 (0-2) % Lymph # (Auto) 1.9 (1.2-4.9) X10*3/uL [place] # (Auto) 0.6 (0.1-1.2) X10*3/uL Eos # (Auto) 0.0 (0.0-0.4) X10*3/uL Baso # (Auto) 0.0 (0.0-0.2) X10*3/uL Abs Immat Gran (auto) 0.05 H (0.00-0.03) X10*3/uL Absolute Neuts (auto) 11.0 H (2.0-8.3) x10*3/uL Absolute Nucleated RBC 0.000 (0.0-0.012) X10*3/uL Nucleated RBC % (auto) 0.0 (0.0-0.2) /100WBC Sodium (135-145) mmol/L Potassium (3.3-5.1) mmol/L Chloride (96-108) mmol/L Carbon Dioxide (22-29) mmol/L Anion Gap (12-20) BUN (9-16) mg/dL Creatinine (0.5-1.4) mg/dL Estim Creat Clear Calc Estimated GFR Random Glucose (60-115) mg/dL Lactic Acid (0.5-2.0) mmol/L Calcium (8.4-10.2) mg/dL Total Bilirubin (0.0-1.0) mg/dL AST (5-31) U/L ALT (0-31) U/L Alkaline Phosphatase (39-117) U/L Troponin I High Sens (<3.5-17.0) ng/L Total Protein (6.5-8.0) g/dL Albumin (3.5-5.0) g/dL Lipase (8-78) U/L Urine Color Urine Appearance Urine pH (5.0-9.0) Ur Specific [place] (1.005-1.025) Urine Protein (Neg-Trace) mg/dL Urine Glucose (UA) (Negative) mg/dL Urine Ketones (Negative) mg/dL Urine Blood (Negative) Urine Nitrite (Negative) Ur Leukocyte Esterase (Negative) Urine RBC (0-2) /HPF Urine WBC (0-5) /HPF Ur Squamous Epith Cells (0-2) /HPF Urine Bacteria (None Seen) Hyaline Casts (0-2) /LPF Urine Test (NEGATIVE) COVID-19 (YANN) Negative (Negative) COVID-19 Clin Com See Note Influenza Type A (BENITA) Negative (Negative) Influenza Type B (BENITA) Negative (Negative) Influenza A & B Note See Note 05/11/22 05/11/22 05/11/22 Range/Units 19:53 19:53 20:35 WBC (4.8-10.8) X10*3/uL RBC (4.20-5.50) X10*6/uL Hgb (12.0-16.0) g/dl Hct (37.0-47.0) % MCV (80.0-98.0) fL MCH (27.0-33.0) pg MCHC (31.0-35.0) g/dl RDW (11.0-16.0) % Plt Count (160-400) X10*3/uL MPV (9.4-12.3) fL Immature Gran % (Auto) (0.0-0.4) % Neut % (Auto) (45-73) % Lymph % (Auto) (20-40) % [place] % (Auto) (2-11) % Eos % (Auto) (0-4) % Baso % (Auto) (0-2) % Lymph # (Auto) (1.2-4.9) X10*3/uL [place] # (Auto) (0.1-1.2) X10*3/uL Eos # (Auto) (0.0-0.4) X10*3/uL Baso # (Auto) (0.0-0.2) X10*3/uL Abs Immat Gran (auto) (0.00-0.03) X10*3/uL Absolute Neuts (auto) (2.0-8.3) x10*3/uL Absolute Nucleated RBC (0.0-0.012) X10*3/uL Nucleated RBC % (auto) (0.0-0.2) /100WBC Sodium 134 L (135-145) mmol/L Potassium 3.4 (3.3-5.1) mmol/L Chloride 100 (96-108) mmol/L Carbon Dioxide 22 (22-29) mmol/L Anion Gap 15 (12-20) BUN 11 (9-16) mg/dL Creatinine 0.92 (0.5-1.4) mg/dL Estim Creat Clear Calc 83.4 Estimated GFR > 60 Random Glucose 276 H (60-115) mg/dL Lactic Acid 1.6 (0.5-2.0) mmol/L Calcium 8.7 D (8.4-10.2) mg/dL Total Bilirubin 0.9 (0.0-1.0) mg/dL AST 17 (5-31) U/L ALT 16 (0-31) U/L Alkaline Phosphatase 98 (39-117) U/L Troponin I High Sens 89.2 H* (<3.5-17.0) ng/L Total Protein 7.0 (6.5-8.0) g/dL Albumin 3.7 (3.5-5.0) g/dL Lipase 13 (8-78) U/L Urine Color Urine Appearance Urine pH (5.0-9.0) Ur Specific [place] (1.005-1.025) Urine Protein (Neg-Trace) mg/dL Urine Glucose (UA) (Negative) mg/dL Urine Ketones (Negative) mg/dL Urine Blood (Negative) Urine Nitrite (Negative) Ur Leukocyte Esterase (Negative) Urine RBC (0-2) /HPF Urine WBC (0-5) /HPF Ur Squamous Epith Cells (0-2) /HPF Urine Bacteria (None Seen) Hyaline Casts (0-2) /LPF Urine Test (NEGATIVE) COVID-19 (YANN) (Negative) COVID-19 Clin Com Influenza Type A (BENITA) (Negative) Influenza Type B (BENITA) (Negative) Influenza A & B Note 05/11/22 05/11/22 05/11/22 Range/Units 22:38 22:38 23:09 WBC (4.8-10.8) X10*3/uL RBC (4.20-5.50) X10*6/uL Hgb (12.0-16.0) g/dl Hct (37.0-47.0) % MCV (80.0-98.0) fL MCH (27.0-33.0) pg MCHC (31.0-35.0) g/dl RDW (11.0-16.0) % Plt Count (160-400) X10*3/uL MPV (9.4-12.3) fL Immature Gran % (Auto) (0.0-0.4) % Neut % (Auto) (45-73) % Lymph % (Auto) (20-40) % [place] % (Auto) (2-11) % Eos % (Auto) (0-4) % Baso % (Auto) (0-2) % Lymph # (Auto) (1.2-4.9) X10*3/uL [place] # (Auto) (0.1-1.2) X10*3/uL Eos # (Auto) (0.0-0.4) X10*3/uL Baso # (Auto) (0.0-0.2) X10*3/uL Abs Immat Gran (auto) (0.00-0.03) X10*3/uL Absolute Neuts (auto) (2.0-8.3) x10*3/uL Absolute Nucleated RBC (0.0-0.012) X10*3/uL Nucleated RBC % (auto) (0.0-0.2) /100WBC Sodium (135-145) mmol/L Potassium (3.3-5.1) mmol/L Chloride (96-108) mmol/L Carbon Dioxide (22-29) mmol/L Anion Gap (12-20) BUN (9-16) mg/dL Creatinine (0.5-1.4) mg/dL Estim Creat Clear Calc Estimated GFR Random Glucose (60-115) mg/dL Lactic Acid (0.5-2.0) mmol/L Calcium (8.4-10.2) mg/dL Total Bilirubin (0.0-1.0) mg/dL AST (5-31) U/L ALT (0-31) U/L Alkaline Phosphatase (39-117) U/L Troponin I High Sens 90.1 H* (<3.5-17.0) ng/L Total Protein (6.5-8.0) g/dL Albumin (3.5-5.0) g/dL Lipase (8-78) U/L Urine Color Yellow Urine Appearance Clear Urine pH 6.0 (5.0-9.0) Ur Specific [place] 1.015 (1.005-1.025) Urine Protein Trace (Neg-Trace) mg/dL Urine Glucose (UA) 500 H (Negative) mg/dL Urine Ketones Negative (Negative) mg/dL Urine Blood Negative (Negative) Urine Nitrite Negative (Negative) Ur Leukocyte Esterase Trace H (Negative) Urine RBC 0-2 (0-2) /HPF Urine WBC 0-5 (0-5) /HPF Ur Squamous Epith Cells 3-5 (0-2) /HPF Urine Bacteria None Seen (None Seen) Hyaline Casts 0-2 (0-2) /LPF Urine Test NEGATIVE (NEGATIVE) COVID-19 (YANN) (Negative) COVID-19 Clin Com Influenza Type A (BENITA) (Negative) Influenza Type B (BENITA) (Negative) Influenza A & B Note <Carolin Hughes CNP - Last Filed: 05/11/22 19:46> Lab Results 05/11/22 05/11/22 05/11/22 Range/Units 19:49 19:49 19:53 WBC 13.5 H (4.8-10.8) X10*3/uL RBC 5.76 H (4.20-5.50) X10*6/uL Hgb 12.7 (12.0-16.0) g/dl Hct 40.3 (37.0-47.0) % MCV 70.0 L (80.0-98.0) fL MCH 22.0 L (27.0-33.0) pg MCHC 31.5 (31.0-35.0) g/dl RDW 18.7 H (11.0-16.0) % Plt Count 282 (160-400) X10*3/uL MPV 10.7 (9.4-12.3) fL Immature Gran % (Auto) 0.4 (0.0-0.4) % Neut % (Auto) 81.0 H (45-73) % Lymph % (Auto) 13.8 L (20-40) % [place] % (Auto) 4.3 (2-11) % Eos % (Auto) 0.3 (0-4) % Baso % (Auto) 0.2 (0-2) % Lymph # (Auto) 1.9 (1.2-4.9) X10*3/uL [place] # (Auto) 0.6 (0.1-1.2) X10*3/uL Eos # (Auto) 0.0 (0.0-0.4) X10*3/uL Baso # (Auto) 0.0 (0.0-0.2) X10*3/uL Abs Immat Gran (auto) 0.05 H (0.00-0.03) X10*3/uL Absolute Neuts (auto) 11.0 H (2.0-8.3) x10*3/uL Absolute Nucleated RBC 0.000 (0.0-0.012) X10*3/uL Nucleated RBC % (auto) 0.0 (0.0-0.2) /100WBC Sodium (135-145) mmol/L Potassium (3.3-5.1) mmol/L Chloride (96-108) mmol/L Carbon Dioxide (22-29) mmol/L Anion Gap (12-20) BUN (9-16) mg/dL Creatinine (0.5-1.4) mg/dL Estim Creat Clear Calc Estimated GFR Random Glucose (60-115) mg/dL Lactic Acid (0.5-2.0) mmol/L Calcium (8.4-10.2) mg/dL Total Bilirubin (0.0-1.0) mg/dL AST (5-31) U/L ALT (0-31) U/L Alkaline Phosphatase (39-117) U/L Troponin I High Sens (<3.5-17.0) ng/L Total Protein (6.5-8.0) g/dL Albumin (3.5-5.0) g/dL Lipase (8-78) U/L Urine Color Urine Appearance Urine pH (5.0-9.0) Ur Specific [place] (1.005-1.025) Urine Protein (Neg-Trace) mg/dL Urine Glucose (UA) (Negative) mg/dL Urine Ketones (Negative) mg/dL Urine Blood (Negative) Urine Nitrite (Negative) Ur Leukocyte Esterase (Negative) Urine RBC (0-2) /HPF Urine WBC (0-5) /HPF Ur Squamous Epith Cells (0-2) /HPF Urine Bacteria (None Seen) Hyaline Casts (0-2) /LPF Urine Test (NEGATIVE) COVID-19 (YANN) Negative (Negative) COVID-19 Clin Com See Note Influenza Type A (BENITA) Negative (Negative) Influenza Type B (BENITA) Negative (Negative) Influenza A & B Note See Note 05/11/22 05/11/22 05/11/22 Range/Units 19:53 19:53 20:35 WBC (4.8-10.8) X10*3/uL RBC (4.20-5.50) X10*6/uL Hgb (12.0-16.0) g/dl Hct (37.0-47.0) % MCV (80.0-98.0) fL MCH (27.0-33.0) pg MCHC (31.0-35.0) g/dl RDW (11.0-16.0) % Plt Count (160-400) X10*3/uL MPV (9.4-12.3) fL Immature Gran % (Auto) (0.0-0.4) % Neut % (Auto) (45-73) % Lymph % (Auto) (20-40) % [place] % (Auto) (2-11) % Eos % (Auto) (0-4) % Baso % (Auto) (0-2) % Lymph # (Auto) (1.2-4.9) X10*3/uL [place] # (Auto) (0.1-1.2) X10*3/uL Eos # (Auto) (0.0-0.4) X10*3/uL Baso # (Auto) (0.0-0.2) X10*3/uL Abs Immat Gran (auto) (0.00-0.03) X10*3/uL Absolute Neuts (auto) (2.0-8.3) x10*3/uL Absolute Nucleated RBC (0.0-0.012) X10*3/uL Nucleated RBC % (auto) (0.0-0.2) /100WBC Sodium 134 L (135-145) mmol/L Potassium 3.4 (3.3-5.1) mmol/L Chloride 100 (96-108) mmol/L Carbon Dioxide 22 (22-29) mmol/L Anion Gap 15 (12-20) BUN 11 (9-16) mg/dL Creatinine 0.92 (0.5-1.4) mg/dL Estim Creat Clear Calc 83.4 Estimated GFR > 60 Random Glucose 276 H (60-115) mg/dL Lactic Acid 1.6 (0.5-2.0) mmol/L Calcium 8.7 D (8.4-10.2) mg/dL Total Bilirubin 0.9 (0.0-1.0) mg/dL AST 17 (5-31) U/L ALT 16 (0-31) U/L Alkaline Phosphatase 98 (39-117) U/L Troponin I High Sens 89.2 H* (<3.5-17.0) ng/L Total Protein 7.0 (6.5-8.0) g/dL Albumin 3.7 (3.5-5.0) g/dL Lipase 13 (8-78) U/L Urine Color Urine Appearance Urine pH (5.0-9.0) Ur Specific [place] (1.005-1.025) Urine Protein (Neg-Trace) mg/dL Urine Glucose (UA) (Negative) mg/dL Urine Ketones (Negative) mg/dL Urine Blood (Negative) Urine Nitrite (Negative) Ur Leukocyte Esterase (Negative) Urine RBC (0-2) /HPF Urine WBC (0-5) /HPF Ur Squamous Epith Cells (0-2) /HPF Urine Bacteria (None Seen) Hyaline Casts (0-2) /LPF Urine Test (NEGATIVE) COVID-19 (YANN) (Negative) COVID-19 Clin Com Influenza Type A (BENITA) (Negative) Influenza Type B (BENITA) (Negative) Influenza A & B Note 05/11/22 05/11/22 05/11/22 Range/Units 22:38 22:38 23:09 WBC (4.8-10.8) X10*3/uL RBC (4.20-5.50) X10*6/uL Hgb (12.0-16.0) g/dl Hct (37.0-47.0) % MCV (80.0-98.0) fL MCH (27.0-33.0) pg MCHC (31.0-35.0) g/dl RDW (11.0-16.0) % Plt Count (160-400) X10*3/uL MPV (9.4-12.3) fL Immature Gran % (Auto) (0.0-0.4) % Neut % (Auto) (45-73) % Lymph % (Auto) (20-40) % [place] % (Auto) (2-11) % Eos % (Auto) (0-4) % Baso % (Auto) (0-2) % Lymph # (Auto) (1.2-4.9) X10*3/uL [place] # (Auto) (0.1-1.2) X10*3/uL Eos # (Auto) (0.0-0.4) X10*3/uL Baso # (Auto) (0.0-0.2) X10*3/uL Abs Immat Gran (auto) (0.00-0.03) X10*3/uL Absolute Neuts (auto) (2.0-8.3) x10*3/uL Absolute Nucleated RBC (0.0-0.012) X10*3/uL Nucleated RBC % (auto) (0.0-0.2) /100WBC Sodium (135-145) mmol/L Potassium (3.3-5.1) mmol/L Chloride (96-108) mmol/L Carbon Dioxide (22-29) mmol/L Anion Gap (12-20) BUN (9-16) mg/dL Creatinine (0.5-1.4) mg/dL Estim Creat Clear Calc Estimated GFR Random Glucose (60-115) mg/dL Lactic Acid (0.5-2.0) mmol/L Calcium (8.4-10.2) mg/dL Total Bilirubin (0.0-1.0) mg/dL AST (5-31) U/L ALT (0-31) U/L Alkaline Phosphatase (39-117) U/L Troponin I High Sens 90.1 H* (<3.5-17.0) ng/L Total Protein (6.5-8.0) g/dL Albumin (3.5-5.0) g/dL Lipase (8-78) U/L Urine Color Yellow Urine Appearance Clear Urine pH 6.0 (5.0-9.0) Ur Specific [place] 1.015 (1.005-1.025) Urine Protein Trace (Neg-Trace) mg/dL Urine Glucose (UA) 500 H (Negative) mg/dL Urine Ketones Negative (Negative) mg/dL Urine Blood Negative (Negative) Urine Nitrite Negative (Negative) Ur Leukocyte Esterase Trace H (Negative) Urine RBC 0-2 (0-2) /HPF Urine WBC 0-5 (0-5) /HPF Ur Squamous Epith Cells 3-5 (0-2) /HPF Urine Bacteria None Seen (None Seen) Hyaline Casts 0-2 (0-2) /LPF Urine Test NEGATIVE (NEGATIVE) COVID-19 (YANN) (Negative) COVID-19 Clin Com Influenza Type A (BENITA) (Negative) Influenza Type B (BENITA) (Negative) Influenza A & B Note <Crystal Baez MD - Last Filed: 05/12/22 01:21> Independent Interpretation I performed an independent interpretation of an: EKG (Sinus tachycardia at 117 per minute, LVH, unchanged from previous EKG.) and Plain X-Ray (Chest: Clear lungs) <Crystal Baez MD - Last Filed: 05/12/22 01:21> Radiology Impression Discussion of test interpretation with radiology: I have reviewed the radiologist's reading. <Crystal Baez MD - Last Filed: 05/12/22 01:21> Chronic Conditions Patient?s care impacted by: Diabetes and Hypertension <Crystal Baez MD - Last Filed: 05/12/22 01:21> Discharge Plan Discharge Clinical Impression: Acute viral syndrome <Carolin Hughes CNP - Last Filed: 05/11/22 19:46> Patient Disposition: Home, Self-Care <Carolin Hughes CNP - Last Filed: 05/11/22 19:46> Instructions: Viral Syndrome (ED) <Carolin Hughes CNP - Last Filed: 05/11/22 19:46> Prescriptions: No Action (DME) nebulizers Misc See Rx Instructions .Route Qty: 1 0RF Rx Instructions: to use every 4 hours as needed for wheezing hydrochlorothiazide 12.5 mg tablet 12.5 mg PO DAILY Qty: 90 1RF aspirin 81 mg tablet,delayed release (DR/EC) 81 mg PO DAILY Qty: 81 8RF albuterol sulfate 90 mcg/actuation HFA aerosol inhaler 2 inh inhalation QID PRN (Reason: shortness of breath or wheezing) Qty: 8.5 8RF amlodipine 10 mg tablet 10 mg PO DAILY 30 Days Qty: 30 7RF Protocol: Hold for SBP< HOLD for SBP < : 90 metformin 500 mg tablet 500 mg PO BID 30 Days Qty: 60 7RF (DME) blood-glucose meter [FreeStyle [place]] Kit See Rx Instructions .ROUTE .MEDSUPPLY Qty: 1 0RF Rx Instructions: As directed valacyclovir 500 mg tablet 1 tab PO DAILY tamsulosin [Flomax] 0.4 mg capsule 0.4 mg PO DAILY 14 Days Qty: 14 0RF fluconazole [Diflucan] 150 mg tablet 150 mg PO Q3D Qty: 2 2RF Rx Instructions: may repeat second dose 72 hrs after first dose if symptoms persist ibuprofen 600 mg tablet 600 mg PO Q6H PRN (Reason: pain) Qty: 30 0RF albuterol sulfate 90 mcg/actuation aero powdr breath act w/sensor 2 inh inhalation Q4-6H PRN (Reason: shortness of breath or wheezing) Qty: 1 0RF Rx Instructions: May dispense medication equivalent accepted by patient's insurance albuterol sulfate 0.63 mg/3 mL solution for nebulization 0.63 mg inhalation Q4-6H PRN (Reason: shortness of breath or wheezing) Qty: 90 0RF Rx Instructions: May dispense medication equivalent accepted by patient's insurance amoxicillin-pot clavulanate 875-125 mg tablet 1 tab PO Q12H 10 Days Qty: 20 0RF prednisone 20 mg tablet 40 mg PO DAILY 5 Days Qty: 10 0RF labetalol 100 mg tablet 100 mg PO BID Qty: 60 8RF Protocol: Hold for SBP/HR < HOLD for SBP < : 90 HOLD for HR < : 60 albuterol sulfate 2.5 mg /3 mL (0.083 %) solution for nebulization inhalation Q4H PRN (Reason: muscle spasm) (DME) lancets [FreeStyle Lancets] 28 gauge misc See Rx Instructions .ROUTE .MEDSUPPLY Qty: 100 7RF Rx Instructions: BID As directed (DME) FreeStyle Lite Strips Strip See Rx Instructions .ROUTE .MEDSUPPLY Qty: 100 7RF Rx Instructions: BID As directed cyclobenzaprine 10 mg tablet 10 mg PO TID PRN (Reason: muscle spasm) Qty: 30 2RF sulfamethoxazole-trimethoprim [Bactrim DS] 800-160 mg tablet 1 tab PO BID Qty: 10 0RF gabapentin 300 mg capsule 300 mg PO BEDTIME 14 Days Qty: 14 0RF cholecalciferol (vitamin D3) 125 mcg (5,000 unit) capsule 125 mcg PO DAILY Qty: 30 2RF omeprazole 40 mg capsule,delayed release(DR/EC) 40 mg PO DAILY Qty: 14 0RF lisinopril 40 mg tablet 40 mg PO DAILY Qty: 90 3RF (DME) blood pressure monitor Kit See Rx Instructions .Route Qty: 1 0RF Rx Instructions: As directed <Carolin Hughes CNP - Last Filed: 05/11/22 19:46> Referrals: Derrek Hollingsworth MD [Primary Care Provider] - <Carolin Hughes CNP - Last Filed: 05/11/22 19:46>
[2022-05-11] MEDS: Acetaminophen 325 MG TABLET 975 MG PO (19:45)
[2022-05-11] MEDS: Ibuprofen 600 MG TABLET PO (19:45)
[2022-05-11 19:57] LABS: MANUAL DIFF FLAG NO
[2022-05-11 20:03] LABS: Basophils Percent Auto 0.2 % (0-2); Eosinophils Percent Auto 0.3 % (0-4); Hematocrit 40.3 % (37.0-47.0); Hemoglobin 12.7 g/dl (12.0-16.0); Imm Gran Abs Auto 0.05 X10*3/uL (0.00-0.03); Imm Gran Pct Auto 0.4 % (0.0-0.4); Lymphocytes Absolute Auto 1.9 X10*3/uL (1.2-4.9); Lymphocytes Percent Auto 13.8 % (20-40); Mean Corpuscular HGB Conc 31.5 g/dl (31.0-35.0); Mean Platelet Volume 10.7 fL (9.4-12.3); Monocytes Absolute Auto 0.6 X10*3/uL (0.1-1.2); Monocytes Percent Auto 4.3 % (2-11); Platelet Count 282 X10*3/uL (160-400); Red Blood Count 5.76 X10*6/uL (4.20-5.50); Red Cell Distribution Width 18.7 % (11.0-16.0); SCAN SMEAR FLAG 1; White Blood Count 13.5 X10*3/uL (4.8-10.8)
[2022-05-11 20:04] LABS: PLT ABN DIST 1
[2022-05-11 20:16] LABS: IDNOW Serial# 6674DD1D
[2022-05-11 20:17] LABS: Alanine Aminotransferase 16 U/L (0-31); Albumin Level 3.7 g/dL (3.5-5.0); Alkaline Phosphatase 98 U/L (39-117); Anion Gap 15 (12-20); Aspartate Amino Transferase 17 U/L (5-31); Bilirubin Total 0.9 mg/dL (0.0-1.0); Blood Urea Nitrogen 11 mg/dL (9-16); Calcium 8.7 mg/dL (8.4-10.2); Carbon Dioxide 22 mmol/L (22-29); Chloride 100 mmol/L (96-108); Creatinine Clr Calc Pharmacy 83.4; Estimated Glomerular Filt Rate > 60; Glucose Random 276 mg/dL (60-115); Lipase 13 U/L (8-78); Potassium 3.4 mmol/L (3.3-5.1); Sodium 134 mmol/L (135-145)
[2022-05-11 20:17] LABS: COVID-19 Test Negative (Negative); IDNOW Serial# 55D5AD1C; Influenza A Negative (Negative); Influenza B2 Negative (Negative)
--- NOTE | 2022-05-11 20:19 | PC.NURSE ---
Dr Baez notified that pt meets [facility] criteria. Primary RN notified.
[2022-05-11 20:26] VITALS: BP 158/102; PULSE 113; RESP 15; TEMP 37; O2SAT 95
[2022-05-11 20:39] LABS: Troponin-I High Sensitivity 89.2 ng/L (<3.5-17.0)
[2022-05-11 20:53] LABS: Lactic Acid 1.6 mmol/L (0.5-2.0)
[2022-05-11 21:00] VITALS: BP 176/104; PULSE 101; RESP 21; TEMP 36.9; O2SAT 97
--- NOTE | 2022-05-11 21:00 | PC.NURSE ---
Sepsis fluid bolus noted to be ordered for pt. MD did not notify this RN, primary RN or the corporate legal secretary that pt was going to be a sepsis alert. This RN notifying primary RN Jesús. This RN at bedside, IV established. IVF infusing per MAR.
[2022-05-11] MEDS: 0.9 % Sodium Chloride 2,721.54 ML 2721.54 ML IV (21:05)
[2022-05-11 22:00] VITALS: BP 188/96; PULSE 97; RESP 19; TEMP 36.9; O2SAT 99
[2022-05-11 22:50] LABS: Appearance Urine Clear; Color Urine Yellow; Glucose Urine UA 500 mg/dL (Negative); Leukocyte Esterase Urine Trace (Negative); Nitrite Urine Negative (Negative); Specific Gravity - Urine 1.015 (1.005-1.025); UMIC TRIGGER UACC YES; Urine Blood Negative (Negative); Urine Ketones Negative (Negative); Urine Protein Trace mg/dL (Neg-Trace)
[2022-05-11 22:53] LABS: UPreg QC Valid YES; Urine Pregnancy NEGATIVE (NEGATIVE)
[2022-05-11 22:54] LABS: Bacteria Urine None Seen (None Seen); Hyaline Casts Urine 0-2 /LPF (0-2); RBC Urine 0-2 /HPF (0-2); WBC Urine 0-5 /HPF (0-5)
[2022-05-11 23:00] VITALS: BP 158/77; PULSE 102; RESP 20; TEMP 37.2; O2SAT 98
[2022-05-11 23:30] VITALS: BP 180/89; PULSE 102; RESP 21; TEMP 36.9; O2SAT 98
[2022-05-11 23:40] LABS: Troponin-I High Sensitivity 90.1 ng/L (<3.5-17.0)
[2022-05-12] VITALS: BP 172/83; PULSE 101; RESP 18; TEMP 37.3; O2SAT 98
[2022-05-12 01:17] VITALS: BP 180/94; PULSE 100; RESP 24; TEMP 37.1; O2SAT 100
== END 2022-05-12 01:56 | disposition home or self-care (01) ==
PROVIDERS: Nurse Practitioner Family; Emergency Provider Emergency Medicine; PCP Internal Medicine
DX: B34.9 Viral infection, unspecified (principal); Z20.822 Contact with and (suspected) exposure to COVID-19; E11.9 Type 2 diabetes mellitus without complications; I10 Essential (primary) hypertension; E66.9 Obesity, unspecified; Z68.36 Body mass index [BMI] 36.0-36.9, adult; Z79.899 Other long term (current) drug therapy; Z79.82 Long term (current) use of aspirin; Z79.84 Long term (current) use of oral hypoglycemic drugs; Z86.73 Personal history of transient ischemic attack (TIA), and cerebral infarction without residual deficits; Z87.891 Personal history of nicotine dependence
CPT/HCPCS: 36415; 71046; 80053; 81001; 81025; 83605; 83690; 84484; 85025; 87040; 87502; 87635; 93005; 96360; 96361; 99284; 99285

== ENCOUNTER 2022-05-18 13:59 | Outpatient (REF) | payer OTHER, SELFPAY ==
--- NOTE | ~2022-05-18 | US_ITS ---
EXAMINATION: US PELVIS CLINICAL INFORMATION: Excessive and frequent menstruation with regular cycles. COMPARISON: Previous CT of the abdomen and pelvis March 2022. TECHNIQUE: Ultrasound of the pelvis is performed using both transabdominal and transvaginal transducers along with Doppler. Transvaginal imaging is performed due to inadequate visualization transabdominally. FINDINGS: The uterus is anteverted and measures 9.3 x 5.3 x 6.7 cm. Endometrial thickness measures 1.1 cm. There is a 1 x 0.6 x 0.6 cm hypoechoic area in the endometrium questionable for a polyp. There is a 1.6 cm hypoechoic area in the anterior lower uterine segment questionable for fibroid versus changes from scar. There is a small 8 x 9 mm hypoechoic lesion in the high right uterine body probably representing a small fibroid. The right ovary measures 3.9 x 2.3 x 1.1 cm. There is a 2.6 x 2.3 x 2.3 cm right adnexal simple cyst medial to the right ovary. Left ovary is normal-appearing and measures 3.1 x 1.7 x 1.8 cm. There is no fluid in the pelvis. US/US pelvic and transvaginal IMPRESSION: Heterogeneous appearing uterus. Probable small right uterine body fibroid and question anterior lower uterine segment fibroid versus scar tissue from . Question 1 x 6 x 6 mm endometrial polyp.
== END 2022-05-18 14:00 | disposition home or self-care (01) ==
LOC: HO.US 13:59
PROVIDERS: Visit Provider Advanced Practice Midwife
DX: N92.0 Excessive and frequent menstruation with regular cycle (principal)
CPT/HCPCS: 76830; 76856

== ENCOUNTER → 2022-05-24 11:28 | Outpatient (BNVA) | payer OTHER, SELFPAY | PROVIDERS: PCP Internal Medicine; Visit Provider Advanced Practice Midwife | DX: N89.8 Other specified noninflammatory disorders of vagina (principal); N84.0 Polyp of corpus uteri; I10 Essential (primary) hypertension; E11.8 Type 2 diabetes mellitus with unspecified complications | CPT/HCPCS: 99212 ==

== ENCOUNTER 2022-05-24 12:37 | Emergency (ER) | payer OTHER, SELFPAY ==
--- NOTE | ~2022-05-24 | CT_ITS ---
EXAMINATION: CT HEAD WITHOUT CONTRAST CLINICAL INFORMATION: Hypertension and headache. COMPARISON: 09/03/2020 TECHNIQUE: Contiguous axial imaging was performed from the skull base to vertex without intravenous administration of contrast. This CT examination was performed using dose optimization techniques as appropriate, variously including the following: *Automated exposure control *Adjustment of mA and/or kV according to patient size (this includes techniques or standardized protocols for targeted exams where dose is matched to indication/reason for exam; i.e. extremities or head) *Use of iterative reconstruction technique DLP: 640 mGy-cm FINDINGS: The brain parenchyma has normal attenuation. The carranza-white matter differentiation is well preserved. No evidence of an acute major vascular territory infarction. No intracranial hemorrhage, extra-axial fluid collection, focal mass effect or midline shift. The ventricles have normal size and configuration; no hydrocephalus. The brainstem and cerebellum have a normal appearance. The cerebellar tonsils are in normal position. The calvarium is intact. Mild mucosal thickening of ethmoid air cells and of the partially visualized left maxillary sinus. Minimal secretions along the anterior wall of the right sphenoid sinus. No air-fluid levels within the paranasal sinuses. The mastoid air cells and middle ear cavities are well aerated. The orbits and globes are unremarkable. The temporomandibular joints are normal. CT/CT head/brain wo IV con IMPRESSION: No hemorrhage or other acute intracranial pathology compared to the prior head CT from 09/03/2020.
[2022-05-24 12:39] VITALS: BP 192/103; PULSE 110; RESP 18; TEMP 36.4; O2SAT 98; BMI 32.9
--- NOTE | 2022-05-24 12:39 | ED_ITS ---
HPI - General Adult General Chief complaint: General Medical Stated complaint: High bp Related Data Home Medications Medication Instructions Recorded Confirmed valacyclovir 500 mg tablet 1 tab PO DAILY 07/21/21 05/24/22 albuterol sulfate 2.5 mg/3 mL mg inhalation Q4H PRN muscle spasm 11/30/21 05/24/22 (0.083 %) solution for nebulization Previous Rx's Medication Instructions Recorded blood-glucose meter (FreeStyle #1 ea 09/05/20 [place] kit) labetalol 100 mg tablet 100 mg PO BID #60 tabs 09/10/20 cholecalciferol (vitamin D3) 125 125 mcg PO DAILY #30 caps 02/26/21 mcg (5,000 unit) capsule omeprazole 40 mg capsule,delayed 40 mg PO DAILY #14 caps 02/26/21 release nebulizers #1 ea 06/17/21 lisinopril 40 mg tablet 40 mg PO DAILY #90 tabs 06/22/21 gabapentin 300 mg capsule 300 mg PO BEDTIME 14 days #14 caps 07/27/21 blood pressure monitor #1 ea 08/03/21 blood sugar diagnostic (FreeStyle #100 ea 11/30/21 Lite Strips) cyclobenzaprine 10 mg tablet 10 mg PO TID PRN muscle spasm #30 11/30/21 tabs lancets 28 gauge (FreeStyle #100 ea 11/30/21 Lancets) hydrochlorothiazide 12.5 mg tablet 12.5 mg PO DAILY #90 tabs 12/10/21 sulfamethoxazole 800 1 tab PO BID #10 tabs 12/10/21 mg-trimethoprim 160 mg tablet (Bactrim DS) aspirin 81 mg tablet,delayed 81 mg PO DAILY #81 tabs 02/16/22 release fluconazole 150 mg tablet 150 mg PO Q3D 2 doses #2 tabs 04/03/22 (Diflucan) ibuprofen 600 mg tablet 600 mg PO Q6H PRN pain #30 tabs 04/03/22 tamsulosin 0.4 mg capsule (Flomax) 0.4 mg PO DAILY 14 days #14 caps 04/03/22 albuterol sulfate 90 mcg/actuation 2 inh inhalation QID PRN shortness 04/05/22 aerosol inhaler of breath or wheezing #8.5 grams albuterol sulfate 0.63 mg/3 mL 0.63 mg (3 mL) inhalation Q4-6H 04/25/22 solution for nebulization PRN shortness of breath or wheezing #90 mL albuterol sulfate 90 mcg/actuation 2 inh inhalation Q4-6H PRN 04/25/22 breath activated powder shortness of breath or wheezing #1 inhaler,sensor ea prednisone 20 mg tablet 40 mg PO DAILY 5 days #10 tabs 04/25/22 amlodipine 10 mg tablet 10 mg PO DAILY 30 days #30 tabs 04/26/22 metformin 500 mg tablet 500 mg PO BID 30 days #60 tabs 04/26/22 fluconazole 150 mg tablet 150 mg PO Q3D 2 doses #2 tabs 05/24/22 Allergies Allergy/AdvReac Type Severity Reaction Status Date / Time Iodinated Contrast Media Allergy Intermediate Anaphylaxis Verified 05/25/22 1 4:36 latex [Latex] Allergy Unknown RASH Verified 05/25/22 14:36 PMF Past Medical History Medical History Anemia Asthma Bilateral hand numbness Bilateral hand pain Diabetes mellitus DJD (degenerative joint disease) GERD (gastroesophageal reflux disease) HSV (herpes simplex virus) infection HTN (hypertension) Obesity Smoking TIA (transient ischemic attack) Surgical History H/O cardiac catheterization Hx of appendectomy Hx of section Hx of cholecystectomy Hx of tubal ligation Family History Family History Mother Heart disease Diabetes Hypertension Hyperlipidemia Fibromyalgia Father No problems noted. Brother No problems noted. Brother No problems noted. Brother No problems noted. Sister Deep vein thrombosis Son No problems noted. Son No problems noted. Daughter Hypertension Daughter No problems noted. Maternal Aunt History of breast cancer Social History Social History Household Members: Children Housing: Apartment Do you presently have visiting nurse or other home services: No Alcohol intake: never Patient Tobacco Use Status: Former Tobacco user Tobacco use type: Cigarette Cigarettes Per Day: 3 e-Cigarette/Vaping Use: Never Used Second Hand Smoke Exposure: Yes Advance Directives: No Advance Directives Information Provided: Yes service: No Current occupational status: employed Cognitive needs: No Hearing needs: No Vision needs: Yes (glasses) Physical Exam ED Vital Signs: BMI result Body Mass Index 32.9 Course Course Course Narrative: RME-- 41 yo F w/PMHx anemia, asthma, GERD, obesity, TIA, sent in from [facility] office for elevated BP in office [employer]. Admits to taking her Amlodipine this AM. Reports mild CARAB[place]O. BP 192/103 in triage EKG, Labs, CXR ordered Medical Decision Making Lab Data 05/24/22 13:05 05/24/22 13:05 Labs: Lab Results 05/24/22 05/24/22 05/24/22 Range/Units 13:05 13:05 13:05 WBC 13.3 H (4.8-10.8) X10*3/uL RBC 5.70 H (4.20-5.50) X10*6/uL Hgb 12.5 (12.0-16.0) g/dl Hct 39.9 (37.0-47.0) % MCV 70.0 L (80.0-98.0) fL MCH 21.9 L (27.0-33.0) pg MCHC 31.3 (31.0-35.0) g/dl RDW 17.4 H (11.0-16.0) % Plt Count 331 (160-400) X10*3/uL MPV 10.9 (9.4-12.3) fL Immature Gran % (Auto) 0.3 (0.0-0.4) % Neut % (Auto) 64.0 (45-73) % Lymph % (Auto) 26.4 (20-40) % [place] % (Auto) 6.5 (2-11) % Eos % (Auto) 2.3 (0-4) % Baso % (Auto) 0.5 (0-2) % Lymph # (Auto) 3.5 (1.2-4.9) X10*3/uL [place] # (Auto) 0.9 (0.1-1.2) X10*3/uL Eos # (Auto) 0.3 (0.0-0.4) X10*3/uL Baso # (Auto) 0.1 (0.0-0.2) X10*3/uL Abs Immat Gran (auto) 0.04 H (0.00-0.03) X10*3/uL Absolute Neuts (auto) 8.5 H (2.0-8.3) x10*3/uL Absolute Nucleated RBC 0.000 (0.0-0.012) X10*3/uL Nucleated RBC % (auto) 0.0 (0.0-0.2) /100WBC Sodium 137 (135-145) mmol/L Potassium 3.5 (3.3-5.1) mmol/L Chloride 100 (96-108) mmol/L Carbon Dioxide 26 (22-29) mmol/L Anion Gap 15 (12-20) BUN 10 (9-16) mg/dL Creatinine 0.84 (0.5-1.4) mg/dL Estim Creat Clear Calc 86.4 Estimated GFR > 60 Random Glucose 324 H (60-115) mg/dL Calcium 9.0 (8.4-10.2) mg/dL Magnesium 1.5 L (1.6-2.6) mg/dL Total Bilirubin 0.6 (0.0-1.0) mg/dL Direct Bilirubin < 0.2 (0.0-0.5) mg/dL AST 15 (5-31) U/L ALT 17 (0-31) U/L Alkaline Phosphatase 105 (39-117) U/L Troponin I High Sens 73.5 H* (<3.5-17.0) ng/L Total Protein 7.1 (6.5-8.0) g/dL Albumin 3.7 (3.5-5.0) g/dL Discharge Plan Discharge Clinical Impression: Chest pain Patient Disposition: Elopement Prescriptions: No Action (DME) nebulizers Misc See Rx Instructions .Route Qty: 1 0RF Rx Instructions: to use every 4 hours as needed for wheezing hydrochlorothiazide 12.5 mg tablet 12.5 mg PO DAILY Qty: 90 1RF aspirin 81 mg tablet,delayed release (DR/EC) 81 mg PO DAILY Qty: 81 8RF albuterol sulfate 90 mcg/actuation HFA aerosol inhaler 2 inh inhalation QID PRN (Reason: shortness of breath or wheezing) Qty: 8.5 8RF amlodipine 10 mg tablet 10 mg PO DAILY 30 Days Qty: 30 7RF Protocol: Hold for SBP< HOLD for SBP < : 90 metformin 500 mg tablet 500 mg PO BID 30 Days Qty: 60 7RF (DME) blood-glucose meter [FreeStyle [place]] Kit See Rx Instructions .ROUTE .MEDSUPPLY Qty: 1 0RF Rx Instructions: As directed valacyclovir 500 mg tablet 1 tab PO DAILY tamsulosin [Flomax] 0.4 mg capsule 0.4 mg PO DAILY 14 Days Qty: 14 0RF fluconazole [Diflucan] 150 mg tablet 150 mg PO Q3D Qty: 2 2RF Rx Instructions: may repeat second dose 72 hrs after first dose if symptoms persist ibuprofen 600 mg tablet 600 mg PO Q6H PRN (Reason: pain) Qty: 30 0RF albuterol sulfate 90 mcg/actuation aero powdr breath act w/sensor 2 inh inhalation Q4-6H PRN (Reason: shortness of breath or wheezing) Qty: 1 0RF Rx Instructions: May dispense medication equivalent accepted by patient's insurance albuterol sulfate 0.63 mg/3 mL solution for nebulization 0.63 mg inhalation Q4-6H PRN (Reason: shortness of breath or wheezing) Qty: 90 0RF Rx Instructions: May dispense medication equivalent accepted by patient's insurance prednisone 20 mg tablet 40 mg PO DAILY 5 Days Qty: 10 0RF labetalol 100 mg tablet 100 mg PO BID Qty: 60 8RF Protocol: Hold for SBP/HR < HOLD for SBP < : 90 HOLD for HR < : 60 albuterol sulfate 2.5 mg /3 mL (0.083 %) solution for nebulization inhalation Q4H PRN (Reason: muscle spasm) (DME) lancets [FreeStyle Lancets] 28 gauge misc See Rx Instructions .ROUTE .MEDSUPPLY Qty: 100 7RF Rx Instructions: BID As directed (DME) FreeStyle Lite Strips Strip See Rx Instructions .ROUTE .MEDSUPPLY Qty: 100 7RF Rx Instructions: BID As directed cyclobenzaprine 10 mg tablet 10 mg PO TID PRN (Reason: muscle spasm) Qty: 30 2RF sulfamethoxazole-trimethoprim [Bactrim DS] 800-160 mg tablet 1 tab PO BID Qty: 10 0RF gabapentin 300 mg capsule 300 mg PO BEDTIME 14 Days Qty: 14 0RF cholecalciferol (vitamin D3) 125 mcg (5,000 unit) capsule 125 mcg PO DAILY Qty: 30 2RF omeprazole 40 mg capsule,delayed release(DR/EC) 40 mg PO DAILY Qty: 14 0RF lisinopril 40 mg tablet 40 mg PO DAILY Qty: 90 3RF (DME) blood pressure monitor Kit See Rx Instructions .Route Qty: 1 0RF Rx Instructions: As directed fluconazole 150 mg tablet 150 mg PO Q3D 0 Days Qty: 2 1RF Rx Instructions: may repeat second dose 72 hrs after first dose if symptoms persist Interventions: ED Discharge Assessment Last Done: 05/24/22 14:41 Discharge Date/Time: 05/24/22 14:41
--- NOTE | 2022-05-24 12:42 | ECG_ITS ---
Test Reason : hypertension Blood Pressure : / mmHG Vent. Rate : 104 BPM Atrial Rate : 104 BPM P-R Int : 152 ms QRS Dur : 084 ms QT Int : 374 ms P-R-T Axes : 056 -20 148 degrees QTc Int : 491 ms Sinus tachycardia Moderate voltage criteria for LVH, may be normal variant ( R in aVL , [employer] product ) Marked ST abnormality, possible lateral subendocardial injury Abnormal ECG When compared with ECG of 11-MAY-2022 19:00, No significant change was found Referred By: Eri Fine Electronically Signed By:STEFFEN ADAM MD
[2022-05-24 13:08] LABS: MANUAL DIFF FLAG NO
[2022-05-24 13:14] LABS: Basophils Absolute Auto 0.1 X10*3/uL (0.0-0.2); Basophils Percent Auto 0.5 % (0-2); Eosinophils Absolute Auto 0.3 X10*3/uL (0.0-0.4); Eosinophils Percent Auto 2.3 % (0-4); Hematocrit 39.9 % (37.0-47.0); Hemoglobin 12.5 g/dl (12.0-16.0); Imm Gran Abs Auto 0.04 X10*3/uL (0.00-0.03); Imm Gran Pct Auto 0.3 % (0.0-0.4); Lymphocytes Absolute Auto 3.5 X10*3/uL (1.2-4.9); Lymphocytes Percent Auto 26.4 % (20-40); Mean Corpuscular HGB Conc 31.3 g/dl (31.0-35.0); Mean Corpuscular Hemoglobin 21.9 pg (27.0-33.0); Mean Platelet Volume 10.9 fL (9.4-12.3); Monocytes Absolute Auto 0.9 X10*3/uL (0.1-1.2); Monocytes Percent Auto 6.5 % (2-11); Neutrophils Absolute Auto 8.5 x10*3/uL (2.0-8.3); Platelet Count 331 X10*3/uL (160-400); Red Cell Distribution Width 17.4 % (11.0-16.0); White Blood Count 13.3 X10*3/uL (4.8-10.8)
[2022-05-24 13:27] LABS: Alanine Aminotransferase 17 U/L (0-31); Albumin Level 3.7 g/dL (3.5-5.0); Alkaline Phosphatase 105 U/L (39-117); Anion Gap 15 (12-20); Aspartate Amino Transferase 15 U/L (5-31); Bilirubin Direct < 0.2 mg/dL (0.0-0.5); Bilirubin Total 0.6 mg/dL (0.0-1.0); Blood Urea Nitrogen 10 mg/dL (9-16); Carbon Dioxide 26 mmol/L (22-29); Chloride 100 mmol/L (96-108); Creatinine Clr Calc Pharmacy 86.4; Estimated Glomerular Filt Rate > 60; Glucose Random 324 mg/dL (60-115); Magnesium 1.5 mg/dL (1.6-2.6); Potassium 3.5 mmol/L (3.3-5.1); Sodium 137 mmol/L (135-145); Total Protein 7.1 g/dL (6.5-8.0)
[2022-05-24 13:47] LABS: Troponin-I High Sensitivity 73.5 ng/L (<3.5-17.0)
--- NOTE | 2022-05-25 12:08 | PC.NURSE ---
Amy was here in the ED yesterday for a headache and high blood pressure. She left without completing her care. I called her today to check on her as her troponin level is elevated, she stated she is having mild chest pain and a headache, she agreed to come back for care and can be here by 2pm. 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
== END 2022-05-24 14:41 | disposition left against medical advice (07) ==
PROVIDERS: Physician Assistant; Emergency Provider Emergency Medicine; PCP Internal Medicine
DX: R07.89 Other chest pain (principal); I10 Essential (primary) hypertension; R51.9 Headache, unspecified; Z79.899 Other long term (current) drug therapy; Z87.891 Personal history of nicotine dependence
CPT/HCPCS: 36415; 70450; 80048; 80076; 83735; 84484; 85025; 93005; 99282; 99284

== ENCOUNTER 2022-05-25 14:26 | Emergency (ER) | payer OTHER, SELFPAY ==
--- NOTE | ~2022-05-25 | XR_ITS ---
EXAMINATION: XR CHEST CLINICAL INFORMATION: Chest pain. COMPARISON: Chest radiographs dated 04/10/2022. TECHNIQUE: Frontal view of the chest was obtained. FINDINGS: No significant abnormality is noted involving the heart, lungs, mediastinum, bony thorax or soft tissues. XR/XR chest 1V IMPRESSION: No acute cardiopulmonary process.
[2022-05-25 14:36] VITALS: BP 217/122; PULSE 101; RESP 18; TEMP 36; O2SAT 98; BMI 34.7
--- NOTE | 2022-05-25 14:37 | ED.GENADULT ---
HPI - General Adult General Chief complaint: Chest Pain Stated complaint: Abnormal EKG- called to come back Time Seen by Provider: 05/25/22 16:08 Related Data Home Medications Medication Instructions Recorded Confirmed valacyclovir 500 mg tablet 1 tab PO DAILY 07/21/21 11/22/22 albuterol sulfate 2.5 mg/3 mL mg inhalation Q4H PRN muscle spasm 11/30/21 11/22/22 (0.083 %) solution for nebulization Previous Rx's Medication Instructions Recorded blood-glucose meter (FreeStyle #1 ea 09/05/20 Beaman kit) nebulizers #1 ea 06/17/21 aspirin 81 mg tablet,delayed 81 mg PO DAILY #81 tabs 02/16/22 release tamsulosin 0.4 mg capsule (Flomax) 0.4 mg PO DAILY 14 days #14 caps 04/03/22 blood pressure test kit-large #1 ea 08/03/22 (PlanetTran Versa Arm BP Monitor kit) hydrochlorothiazide 25 mg tablet 25 mg PO DAILY #90 tabs 08/04/22 metformin 1,000 mg tablet 1,000 mg PO BID #60 tabs 08/18/22 blood sugar diagnostic (FreeStyle #100 ea 09/12/22 Lite Strips) amlodipine 10 mg tablet 10 mg PO DAILY #90 tabs 10/05/22 albuterol sulfate 0.63 mg/3 mL 0.63 mg (3 mL) inhalation Q4-6H 10/28/22 solution for nebulization PRN shortness of breath or wheezing #90 mL albuterol sulfate 90 mcg/actuation 2 inh inhalation Q4-6H PRN 10/28/22 breath activated powder shortness of breath or wheezing #1 inhaler,sensor ea cyclobenzaprine 10 mg tablet 10 mg PO TID PRN muscle spasm #30 10/28/22 tabs gabapentin 300 mg capsule 300 mg PO BEDTIME 14 days #14 caps 10/28/22 ibuprofen 600 mg tablet 600 mg PO Q6H PRN pain #30 tabs 10/28/22 labetalol 100 mg tablet 100 mg PO BID #60 tabs 10/28/22 lancets 28 gauge (FreeStyle #100 ea 10/28/22 Lancets) lisinopril 40 mg tablet 40 mg PO DAILY #30 tabs 10/28/22 omeprazole 20 mg capsule,delayed 20 mg PO DAILY #20 caps 10/28/22 release prednisone 20 mg tablet 40 mg PO DAILY 5 days #10 tabs 10/28/22 naproxen 500 mg tablet 500 mg PO BID PRN for pain #60 tabs 11/04/22 albuterol sulfate 90 mcg/actuation 2 inh inhalation QID PRN shortness 11/22/22 aerosol inhaler of breath or wheezing #8.5 grams blood pressure monitor #1 ea 11/22/22 Allergies Allergy/AdvReac Type Severity Reaction Status Date / Time Iodinated Contrast Media Allergy Intermediate Anaphylaxis Verified 11/22/22 09:28 latex [Latex] Allergy Unknown RASH Verified 11/22/22 09:28 [facility] Past Medical History Medical History Anemia Asthma Bilateral hand numbness Bilateral hand pain Diabetes mellitus DJD (degenerative joint disease) GERD (gastroesophageal reflux disease) HSV (herpes simplex virus) infection HTN (hypertension) Obesity Smoking TIA (transient ischemic attack) Surgical History H/O cardiac catheterization Hx of appendectomy Hx of section Hx of cholecystectomy Hx of tubal ligation Family History Family History Mother Heart disease Diabetes Hypertension Hyperlipidemia Fibromyalgia Father No problems noted. Brother No problems noted. Brother No problems noted. Brother No problems noted. Sister Deep vein thrombosis Son No problems noted. Son No problems noted. Daughter Hypertension Daughter No problems noted. Maternal Aunt History of breast cancer Social History Social History Household Members: Children Housing: Apartment Do you presently have visiting nurse or other home services: No Alcohol intake: current Alcohol intake frequency: holidays/special occasions only Patient Tobacco Use Status: Former Tobacco user Tobacco use type: Cigarette Cigarettes Per Day: 3 e-Cigarette/Vaping Use: Never Used Second Hand Smoke Exposure: Yes service: No Current occupational status: employed Cognitive needs: No Hearing needs: No Vision needs: Yes (glasses) Physical Exam ED Vital Signs: BMI result Body Mass Index 34.7 Course Course Course Narrative: RME- 41-year-old female with past medical history significant for anemia, tobacco dependence, dysmenorrhea, diastolic heart failure, obesity, type 2 diabetes, TIA, GERD, asthma, hypertension presents for evaluation of abnormal labs. Patient was seen here yesterday after being referred by her psychologist due to having high blood pressure on outpatient visit. She had labs drawn that were significant for troponin of 75 the patient left without being seen. Therefore she returns to ER due to being called back. Under review of her medical history, she has a history of elevated troponin and is actually trending downwards from 2 weeks prior to her most recent lab draw of May 08. Of note, the patient's blood pressure on arrival was 194/115. The patient does endorse some mild chest pain today, we will repeat EKG, labs Medical Decision Making Lab Data 05/25/22 15:32 05/25/22 16:02 Labs: Lab Results 05/25/22 05/25/22 05/25/22 Range/Units 15:32 15:32 16:02 WBC 13.1 H (4.8-10.8) X10*3/uL RBC 5.77 H (4.20-5.50) X10*6/uL Hgb 12.6 (12.0-16.0) g/dl Hct 40.4 (37.0-47.0) % MCV 70.0 L (80.0-98.0) fL MCH 21.8 L (27.0-33.0) pg MCHC 31.2 (31.0-35.0) g/dl RDW 17.2 H (11.0-16.0) % Plt Count 323 (160-400) X10*3/uL MPV 10.7 (9.4-12.3) fL Immature Gran % (Auto) 0.3 (0.0-0.4) % Neut % (Auto) 62.1 (45-73) % Lymph % (Auto) 29.0 (20-40) % [place] % (Auto) 6.1 (2-11) % Eos % (Auto) 2.0 (0-4) % Baso % (Auto) 0.5 (0-2) % Lymph # (Auto) 3.8 (1.2-4.9) X10*3/uL [place] # (Auto) 0.8 (0.1-1.2) X10*3/uL Eos # (Auto) 0.3 (0.0-0.4) X10*3/uL Baso # (Auto) 0.1 (0.0-0.2) X10*3/uL Abs Immat Gran (auto) 0.04 H (0.00-0.03) X10*3/uL Absolute Neuts (auto) 8.1 (2.0-8.3) x10*3/uL Absolute Nucleated RBC 0.000 (0.0-0.012) X10*3/uL Nucleated RBC % (auto) 0.0 (0.0-0.2) /100WBC Smear Tech's Comments VERIFIED D-Dimer High Sensitivty NG/ML Sodium 136 (135-145) mmol/L Potassium 3.6 (3.3-5.1) mmol/L Chloride 97 (96-108) mmol/L Carbon Dioxide 27 (22-29) mmol/L Anion Gap 16 (12-20) BUN 10 (9-16) mg/dL Creatinine 0.86 (0.5-1.4) mg/dL Estim Creat Clear Calc 86.8 Estimated GFR > 60 Random Glucose 339 H (60-115) mg/dL Calcium 9.3 (8.4-10.2) mg/dL Magnesium 1.5 L (1.6-2.6) mg/dL Total Bilirubin 0.5 (0.0-1.0) mg/dL AST 15 (5-31) U/L ALT 14 (0-31) U/L Alkaline Phosphatase 103 (39-117) U/L Troponin I High Sens 64.1 H* (<3.5-17.0) ng/L Total Protein 7.2 (6.5-8.0) g/dL Albumin 3.6 (3.5-5.0) g/dL 05/25/22 05/25/22 05/25/22 Range/Units 16:45 17:44 19:16 WBC (4.8-10.8) X10*3/uL RBC (4.20-5.50) X10*6/uL Hgb (12.0-16.0) g/dl Hct (37.0-47.0) % MCV (80.0-98.0) fL MCH (27.0-33.0) pg MCHC (31.0-35.0) g/dl RDW (11.0-16.0) % Plt Count (160-400) X10*3/uL MPV (9.4-12.3) fL Immature Gran % (Auto) (0.0-0.4) % Neut % (Auto) (45-73) % Lymph % (Auto) (20-40) % [place] % (Auto) (2-11) % Eos % (Auto) (0-4) % Baso % (Auto) (0-2) % Lymph # (Auto) (1.2-4.9) X10*3/uL [place] # (Auto) (0.1-1.2) X10*3/uL Eos # (Auto) (0.0-0.4) X10*3/uL Baso # (Auto) (0.0-0.2) X10*3/uL Abs Immat Gran (auto) (0.00-0.03) X10*3/uL Absolute Neuts (auto) (2.0-8.3) x10*3/uL Absolute Nucleated RBC (0.0-0.012) X10*3/uL Nucleated RBC % (auto) (0.0-0.2) /100WBC Smear Tech's Comments D-Dimer High Sensitivty 157 NG/ML Sodium (135-145) mmol/L Potassium (3.3-5.1) mmol/L Chloride (96-108) mmol/L Carbon Dioxide (22-29) mmol/L Anion Gap (12-20) BUN (9-16) mg/dL Creatinine (0.5-1.4) mg/dL Estim Creat Clear Calc Estimated GFR Random Glucose (60-115) mg/dL Calcium (8.4-10.2) mg/dL Magnesium (1.6-2.6) mg/dL Total Bilirubin (0.0-1.0) mg/dL AST (5-31) U/L ALT (0-31) U/L Alkaline Phosphatase (39-117) U/L Troponin I High Sens 65.8 H* 59.3 H* (<3.5-17.0) ng/L Total Protein (6.5-8.0) g/dL Albumin (3.5-5.0) g/dL Discharge Plan Discharge Clinical Impression: Chest pain Patient Disposition: Home, Self-Care Instructions: Chest Pain (ED) Prescriptions: No Action (DME) nebulizers Misc See Rx Instructions .Route Qty: 1 0RF Rx Instructions: to use every 4 hours as needed for wheezing aspirin 81 mg tablet,delayed release (DR/EC) 81 mg PO DAILY Qty: 81 8RF (DME) blood pressure test kit-large [[employer] Versa Arm BP Monitor] Kit See Rx Instructions .Route Qty: 1 0RF Rx Instructions: As directed hydrochlorothiazide 25 mg tablet 25 mg PO DAILY Qty: 90 8RF (DME) FreeStyle Lite Strips Strip See Rx Instructions .ROUTE .MEDSUPPLY Qty: 100 7RF Rx Instructions: BID As directed amlodipine 10 mg tablet 10 mg PO DAILY Qty: 90 2RF naproxen 500 mg tablet 500 mg PO BID PRN (Reason: for pain) Qty: 60 0RF albuterol sulfate 90 mcg/actuation HFA aerosol inhaler 2 inh inhalation QID PRN (Reason: shortness of breath or wheezing) Qty: 8.5 8RF (DME) blood pressure monitor Kit See Rx Instructions .Route Qty: 1 0RF Rx Instructions: As directed (DME) blood-glucose meter [FreeStyle Beaman] Kit See Rx Instructions .ROUTE .MEDSUPPLY Qty: 1 0RF Rx Instructions: As directed valacyclovir 500 mg tablet 1 tab PO DAILY tamsulosin [Flomax] 0.4 mg capsule 0.4 mg PO DAILY 14 Days Qty: 14 0RF albuterol sulfate 2.5 mg /3 mL (0.083 %) solution for nebulization inhalation Q4H PRN (Reason: muscle spasm) metformin 1,000 mg tablet 1,000 mg PO BID Qty: 60 8RF albuterol sulfate 90 mcg/actuation aero powdr breath act w/sensor 2 inh inhalation Q4-6H PRN (Reason: shortness of breath or wheezing) Qty: 1 0RF Rx Instructions: May dispense medication equivalent accepted by patient's insurance albuterol sulfate 0.63 mg/3 mL solution for nebulization 0.63 mg inhalation Q4-6H PRN (Reason: shortness of breath or wheezing) Qty: 90 0RF Rx Instructions: May dispense medication equivalent accepted by patient's insurance cyclobenzaprine 10 mg tablet 10 mg PO TID PRN (Reason: muscle spasm) Qty: 30 2RF gabapentin 300 mg capsule 300 mg PO BEDTIME 14 Days Qty: 14 0RF ibuprofen 600 mg tablet 600 mg PO Q6H PRN (Reason: pain) Qty: 30 0RF labetalol 100 mg tablet 100 mg PO BID Qty: 60 8RF Protocol: Hold for SBP/HR < HOLD for SBP < : 90 HOLD for HR < : 60 (DME) lancets [FreeStyle Lancets] 28 gauge misc See Rx Instructions .ROUTE .MEDSUPPLY Qty: 100 7RF Rx Instructions: BID As directed lisinopril 40 mg tablet 40 mg PO DAILY Qty: 30 0RF omeprazole 20 mg capsule,delayed release(DR/EC) 20 mg PO DAILY Qty: 20 0RF prednisone 20 mg tablet 40 mg PO DAILY 5 Days Qty: 10 0RF Referrals: Derrek Hollingsworth MD [Primary Care Provider] - Interventions: ED Discharge Assessment Last Done: 05/25/22 21:00 Discharge Date/Time: 05/25/22 21:01
--- NOTE | 2022-05-25 14:42 | ECG_ITS ---
Test Reason : CHEST PAIN Blood Pressure : / mmHG Vent. Rate : 097 BPM Atrial Rate : 097 BPM P-R Int : 156 ms QRS Dur : 086 ms QT Int : 378 ms P-R-T Axes : 050 -24 143 degrees QTc Int : 480 ms Normal sinus rhythm Possible Left atrial enlargement Left ventricular hypertrophy ( R in aVL , [place] product ) Marked ST abnormality, possible lateral subendocardial injury Prolonged QT Abnormal ECG When compared with ECG of 24-MAY-2022 13:08, No significant change was found Referred By: Noé Moon Electronically Signed By:STEFFEN ADAM MD
--- NOTE | 2022-05-25 15:38 | PC.NURSE ---
assumed care of patient, pt changed into gown, on monitor, iv in place, labs drawn and sent, awaiting further recs.
[2022-05-25 15:39] VITALS: BP 187/105; PULSE 105; RESP 16; TEMP 36.8; O2SAT 98
[2022-05-25 15:41] LABS: Basophils Absolute Auto 0.1 X10*3/uL (0.0-0.2); Basophils Percent Auto 0.5 % (0-2); Hemoglobin 12.6 g/dl (12.0-16.0); Red Cell Distribution Width 17.2 % (11.0-16.0); SCAN SMEAR FLAG 1
[2022-05-25 15:43] LABS: Eosinophils Absolute Auto 0.3 X10*3/uL (0.0-0.4); Hematocrit 40.4 % (37.0-47.0); Imm Gran Abs Auto 0.04 X10*3/uL (0.00-0.03); Imm Gran Pct Auto 0.3 % (0.0-0.4); Lymphocytes Absolute Auto 3.8 X10*3/uL (1.2-4.9); MANUAL DIFF FLAG SCAN; Mean Corpuscular HGB Conc 31.2 g/dl (31.0-35.0); Mean Corpuscular Hemoglobin 21.8 pg (27.0-33.0); Mean Platelet Volume 10.7 fL (9.4-12.3); Monocytes Absolute Auto 0.8 X10*3/uL (0.1-1.2); Monocytes Percent Auto 6.1 % (2-11); Neutrophils Absolute Auto 8.1 x10*3/uL (2.0-8.3); Neutrophils Percent Auto 62.1 % (45-73); Platelet Count 323 X10*3/uL (160-400); Red Blood Count 5.77 X10*6/uL (4.20-5.50); White Blood Count 13.1 X10*3/uL (4.8-10.8)
[2022-05-25 16:05] LABS: PLT ABN DIST 1; SLIDE REVIEW VERIFIED
[2022-05-25 16:09] LABS: Troponin-I High Sensitivity 64.1 ng/L (<3.5-17.0)
--- NOTE | 2022-05-25 16:15 | ED.CHESTPAIN ---
HPI - Chest Pain General Chief Complaint: Chest Pain Stated Complaint: Abnormal EKG- called to come back Time Seen by Provider: 05/25/22 16:08 History of Present Illness HPI narrative: Patient is a 41-year-old female presenting today with having intermittent pain. The chest pain lasts for few seconds. Warm and home. There is no specific trigger. It has been ongoing for 2 days. Positive history of diabetes, hypertension, high cholesterol. No history of smoking. Never had a heart attack. Patient had an abnormal stress test but was followed by a cardiac cath done in October of 2021. It showed normal coronary vessels patient claims his pain is very similar to previous bouts. 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 She denies any chest trauma. No leg swelling. No history of being on control. No long distance travel. Never had a blood clot. Not made worse with deep breath. No history of coughing congestion upper respiratory symptoms. Related Data Home Medications Medication Instructions Recorded Confirmed valacyclovir 500 mg tablet 1 tab PO DAILY 07/21/21 05/24/22 albuterol sulfate 2.5 mg/3 mL mg inhalation Q4H PRN muscle spasm 11/30/21 05/24/22 (0.083 %) solution for nebulization Previous Rx's Medication Instructions Recorded blood-glucose meter (FreeStyle #1 ea 09/05/20 [place] kit) labetalol 100 mg tablet 100 mg PO BID #60 tabs 09/10/20 cholecalciferol (vitamin D3) 125 125 mcg PO DAILY #30 caps 02/26/21 mcg (5,000 unit) capsule omeprazole 40 mg capsule,delayed 40 mg PO DAILY #14 caps 02/26/21 release nebulizers #1 ea 06/17/21 lisinopril 40 mg tablet 40 mg PO DAILY #90 tabs 06/22/21 gabapentin 300 mg capsule 300 mg PO BEDTIME 14 days #14 caps 07/27/21 blood pressure monitor #1 ea 08/03/21 blood sugar diagnostic (FreeStyle #100 ea 11/30/21 Lite Strips) cyclobenzaprine 10 mg tablet 10 mg PO TID PRN muscle spasm #30 11/30/21 tabs lancets 28 gauge (FreeStyle #100 ea 11/30/21 Lancets) hydrochlorothiazide 12.5 mg tablet 12.5 mg PO DAILY #90 tabs 12/10/21 sulfamethoxazole 800 1 tab PO BID #10 tabs 12/10/21 mg-trimethoprim 160 mg tablet (Bactrim DS) aspirin 81 mg tablet,delayed 81 mg PO DAILY #81 tabs 02/16/22 release fluconazole 150 mg tablet 150 mg PO Q3D 2 doses #2 tabs 04/03/22 (Diflucan) ibuprofen 600 mg tablet 600 mg PO Q6H PRN pain #30 tabs 04/03/22 tamsulosin 0.4 mg capsule (Flomax) 0.4 mg PO DAILY 14 days #14 caps 04/03/22 albuterol sulfate 90 mcg/actuation 2 inh inhalation QID PRN shortness 04/05/22 aerosol inhaler of breath or wheezing #8.5 grams albuterol sulfate 0.63 mg/3 mL 0.63 mg (3 mL) inhalation Q4-6H 04/25/22 solution for nebulization PRN shortness of breath or wheezing #90 mL albuterol sulfate 90 mcg/actuation 2 inh inhalation Q4-6H PRN 04/25/22 breath activated powder shortness of breath or wheezing #1 inhaler,sensor ea prednisone 20 mg tablet 40 mg PO DAILY 5 days #10 tabs 04/25/22 amlodipine 10 mg tablet 10 mg PO DAILY 30 days #30 tabs 04/26/22 metformin 500 mg tablet 500 mg PO BID 30 days #60 tabs 04/26/22 fluconazole 150 mg tablet 150 mg PO Q3D 2 doses #2 tabs 05/24/22 Allergies Allergy/AdvReac Type Severity Reaction Status Date / Time Iodinated Contrast Media Allergy Intermediate Anaphylaxis Verified 05/25/22 14:36 latex [Latex] Allergy Unknown RASH Verified 05/25/22 14:36 Review of Systems Review of Systems: No fever no chills . Positive chest pain no shortness of breath no diaphoresis PMFSH Past Medical History Attestation statement: The following information was validated with the patient. Medical History Anemia Asthma Bilateral hand numbness Bilateral hand pain Diabetes mellitus DJD (degenerative joint disease) GERD (gastroesophageal reflux disease) HSV (herpes simplex virus) infection HTN (hypertension) Obesity Smoking TIA (transient ischemic attack) Surgical History H/O cardiac catheterization Hx of appendectomy Hx of section Hx of cholecystectomy Hx of tubal ligation Family History Family History Mother Heart disease Diabetes Hypertension Hyperlipidemia Fibromyalgia Father No problems noted. Brother No problems noted. Brother No problems noted. Brother No problems noted. Sister Deep vein thrombosis Son No problems noted. Son No problems noted. Daughter Hypertension Daughter No problems noted. Maternal Aunt History of breast cancer Social History Social History Household Members: Children Housing: Apartment Do you presently have visiting nurse or other home services: No Alcohol intake: never Patient Tobacco Use Status: Former Tobacco user Tobacco use type: Cigarette Cigarettes Per Day: 3 e-Cigarette/Vaping Use: Never Used Second Hand Smoke Exposure: Yes Advance Directives: No Advance Directives Information Provided: Yes service: No Current occupational status: employed Cognitive needs: No Hearing needs: No Vision needs: Yes (glasses) Physical Exam Vital Signs: Vital Signs: Last Vital Signs Temp 98.7 F 05/25/22 17:55 Pulse 96 05/25/22 19:17 Resp 17 05/25/22 19:17 BP 186/109 H 05/25/22 19:17 Pulse Ox 98 05/25/22 19:17 O2 Del Method 05/25/22 19:17 BMI result Body Mass Index 34.7 Appearance: Alert. Oriented X3. No acute distress. Eyes: Pupils equal, round and reactive to light. ENT: Pharynx normal. Neck: Normal inspection. Neck supple. No lymph nodes noted. No crepitus CVS: Normal heart rate and rhythm. Pulses normal. Normal S1 and S2 Respiratory: No respiratory distress. Breath sounds normal. No Wheezing. No rales Abdomen: Soft and nontender. No rigidity. No distention. good BS x4 Skin: Skin warm and dry. Normal skin color. Normal skin turgor. Extremities: No lower extremity edema. Neurovascular intact to all extremities. No Lacerations. No Rash Neuro: Oriented X 3. No motor deficit. No sensory deficit. Moving all extermities. No slurred speech Medical Decision Making Medical Decision Making MDM Narrative: Patient does have significant cardiac risk factors including hypertension hyperlipidemia, diabetes. However patient had a cardiac catheterization done last year. The report was reviewed. It showed normal coronary vessels. Risk of CAD extremely low in this setting. We will get a repeat set of cardiac enzymes. Patient 1st troponin was 64.1. This is slightly high but is actually lower than previous troponins. Will get a 2nd troponin 1 hour and a 3rd troponin in 3 hours. Patient's history not consistent with having a pulmonary emboli. Will get a chest x-ray to rule out the possibility of pneumonia. Rule out the possibility of pneumothorax. She is currently in stable condition. Three sets of cardiac enzymes are negative. Patient's pain atypical. Patient's D-dimer was negative in the setting of low risk patient unlikely to have pulmonary emboli. Patient had a cardiac catheterization done 1 year ago. It was grossly negative for any acute vessel occlusion. Unlikely patient has ACS. Will discharge patient home. In stable condition. Differential Diagnosis Differential Diagnoses: The differential diagnosis associated with the presentation includes Pneumonia, pneumothorax, coronary artery disease, pulmonary emboli, reflux, anxiety Admission/Observation Consideration of admission/observation: Escalation of care including admission/observation considered Patient had negative cardiac catheterization or a year ago Lab Data MDM Lab Attestation statement: I reviewed the patient's lab results. 05/25/22 15:32 05/25/22 15:32 Labs: Lab Results 05/25/22 05/25/22 05/25/22 Range/Units 15:32 15:32 16:02 WBC 13.1 H (4.8-10.8) X10*3/uL RBC 5.77 H (4.20-5.50) X10*6/uL Hgb 12.6 (12.0-16.0) g/dl Hct 40.4 (37.0-47.0) % MCV 70.0 L (80.0-98.0) fL MCH 21.8 L (27.0-33.0) pg MCHC 31.2 (31.0-35.0) g/dl RDW 17.2 H (11.0-16.0) % Plt Count 323 (160-400) X10*3/uL MPV 10.7 (9.4-12.3) fL Immature Gran % (Auto) 0.3 (0.0-0.4) % Neut % (Auto) 62.1 (45-73) % Lymph % (Auto) 29.0 (20-40) % [place] % (Auto) 6.1 (2-11) % Eos % (Auto) 2.0 (0-4) % Baso % (Auto) 0.5 (0-2) % Lymph # (Auto) 3.8 (1.2-4.9) X10*3/uL [place] # (Auto) 0.8 (0.1-1.2) X10*3/uL Eos # (Auto) 0.3 (0.0-0.4) X10*3/uL Baso # (Auto) 0.1 (0.0-0.2) X10*3/uL Abs Immat Gran (auto) 0.04 H (0.00-0.03) X10*3/uL Absolute Neuts (auto) 8.1 (2.0-8.3) x10*3/uL Absolute Nucleated RBC 0.000 (0.0-0.012) X10*3/uL Nucleated RBC % (auto) 0.0 (0.0-0.2) /100WBC Smear Tech's Comments VERIFIED D-Dimer High Sensitivty NG/ML Sodium 136 (135-145) mmol/L Potassium 3.6 (3.3-5.1) mmol/L Chloride 97 (96-108) mmol/L Carbon Dioxide 27 (22-29) mmol/L Anion Gap 16 (12-20) BUN 10 (9-16) mg/dL Creatinine 0.86 (0.5-1.4) mg/dL Estim Creat Clear Calc 86.8 Estimated GFR > 60 Random Glucose 339 H (60-115) mg/dL Calcium 9.3 (8.4-10.2) mg/dL Magnesium 1.5 L (1.6-2.6) mg/dL Total Bilirubin 0.5 (0.0-1.0) mg/dL AST 15 (5-31) U/L ALT 14 (0-31) U/L Alkaline Phosphatase 103 (39-117) U/L Troponin I High Sens 64.1 H* (<3.5-17.0) ng/L Total Protein 7.2 (6.5-8.0) g/dL Albumin 3.6 (3.5-5.0) g/dL 05/25/22 05/25/22 Range/Units 16:45 17:44 WBC (4.8-10.8) X10*3/uL RBC (4.20-5.50) X10*6/uL Hgb (12.0-16.0) g/dl Hct (37.0-47.0) % MCV (80.0-98.0) fL MCH (27.0-33.0) pg MCHC (31.0-35.0) g/dl RDW (11.0-16.0) % Plt Count (160-400) X10*3/uL MPV (9.4-12.3) fL Immature Gran % (Auto) (0.0-0.4) % Neut % (Auto) (45-73) % Lymph % (Auto) (20-40) % [place] % (Auto) (2-11) % Eos % (Auto) (0-4) % Baso % (Auto) (0-2) % Lymph # (Auto) (1.2-4.9) X10*3/uL [place] # (Auto) (0.1-1.2) X10*3/uL Eos # (Auto) (0.0-0.4) X10*3/uL Baso # (Auto) (0.0-0.2) X10*3/uL Abs Immat Gran (auto) (0.00-0.03) X10*3/uL Absolute Neuts (auto) (2.0-8.3) x10*3/uL Absolute Nucleated RBC (0.0-0.012) X10*3/uL Nucleated RBC % (auto) (0.0-0.2) /100WBC Smear Tech's Comments D-Dimer High Sensitivty 157 NG/ML Sodium (135-145) mmol/L Potassium (3.3-5.1) mmol/L Chloride (96-108) mmol/L Carbon Dioxide (22-29) mmol/L Anion Gap (12-20) BUN (9-16) mg/dL Creatinine (0.5-1.4) mg/dL Estim Creat Clear Calc Estimated GFR Random Glucose (60-115) mg/dL Calcium (8.4-10.2) mg/dL Magnesium (1.6-2.6) mg/dL Total Bilirubin (0.0-1.0) mg/dL AST (5-31) U/L ALT (0-31) U/L Alkaline Phosphatase (39-117) U/L Troponin I High Sens 65.8 H* (<3.5-17.0) ng/L Total Protein (6.5-8.0) g/dL Albumin (3.5-5.0) g/dL Independent Interpretation I performed an independent interpretation of an: EKG Interpretation: EKG showed a sinus pattern heart rate is 90 NV QRS within normal limits there is significant LVH noted. The EKG is not changed from previous. Discharge Plan Discharge Clinical Impression: Chest pain Patient Disposition: Home, Self-Care Instructions: Chest Pain (ED) Prescriptions: No Action (DME) nebulizers Misc See Rx Instructions .Route Qty: 1 0RF Rx Instructions: to use every 4 hours as needed for wheezing hydrochlorothiazide 12.5 mg tablet 12.5 mg PO DAILY Qty: 90 1RF aspirin 81 mg tablet,delayed release (DR/EC) 81 mg PO DAILY Qty: 81 8RF albuterol sulfate 90 mcg/actuation HFA aerosol inhaler 2 inh inhalation QID PRN (Reason: shortness of breath or wheezing) Qty: 8.5 8RF amlodipine 10 mg tablet 10 mg PO DAILY 30 Days Qty: 30 7RF Protocol: Hold for SBP< HOLD for SBP < : 90 metformin 500 mg tablet 500 mg PO BID 30 Days Qty: 60 7RF (DME) blood-glucose meter [FreeStyle [place]] Kit See Rx Instructions .ROUTE .MEDSUPPLY Qty: 1 0RF Rx Instructions: As directed valacyclovir 500 mg tablet 1 tab PO DAILY tamsulosin [Flomax] 0.4 mg capsule 0.4 mg PO DAILY 14 Days Qty: 14 0RF fluconazole [Diflucan] 150 mg tablet 150 mg PO Q3D Qty: 2 2RF Rx Instructions: may repeat second dose 72 hrs after first dose if symptoms persist ibuprofen 600 mg tablet 600 mg PO Q6H PRN (Reason: pain) Qty: 30 0RF albuterol sulfate 90 mcg/actuation aero powdr breath act w/sensor 2 inh inhalation Q4-6H PRN (Reason: shortness of breath or wheezing) Qty: 1 0RF Rx Instructions: May dispense medication equivalent accepted by patient's insurance albuterol sulfate 0.63 mg/3 mL solution for nebulization 0.63 mg inhalation Q4-6H PRN (Reason: shortness of breath or wheezing) Qty: 90 0RF Rx Instructions: May dispense medication equivalent accepted by patient's insurance prednisone 20 mg tablet 40 mg PO DAILY 5 Days Qty: 10 0RF labetalol 100 mg tablet 100 mg PO BID Qty: 60 8RF Protocol: Hold for SBP/HR < HOLD for SBP < : 90 HOLD for HR < : 60 albuterol sulfate 2.5 mg /3 mL (0.083 %) solution for nebulization inhalation Q4H PRN (Reason: muscle spasm) (DME) lancets [FreeStyle Lancets] 28 gauge misc See Rx Instructions .ROUTE .MEDSUPPLY Qty: 100 7RF Rx Instructions: BID As directed (DME) FreeStyle Lite Strips Strip See Rx Instructions .ROUTE .MEDSUPPLY Qty: 100 7RF Rx Instructions: BID As directed cyclobenzaprine 10 mg tablet 10 mg PO TID PRN (Reason: muscle spasm) Qty: 30 2RF sulfamethoxazole-trimethoprim [Bactrim DS] 800-160 mg tablet 1 tab PO BID Qty: 10 0RF gabapentin 300 mg capsule 300 mg PO BEDTIME 14 Days Qty: 14 0RF cholecalciferol (vitamin D3) 125 mcg (5,000 unit) capsule 125 mcg PO DAILY Qty: 30 2RF omeprazole 40 mg capsule,delayed release(DR/EC) 40 mg PO DAILY Qty: 14 0RF lisinopril 40 mg tablet 40 mg PO DAILY Qty: 90 3RF (DME) blood pressure monitor Kit See Rx Instructions .Route Qty: 1 0RF Rx Instructions: As directed fluconazole 150 mg tablet 150 mg PO Q3D 0 Days Qty: 2 1RF Rx Instructions: may repeat second dose 72 hrs after first dose if symptoms persist Referrals: Derrek Hollingsworth MD [Primary Care Provider] -
[2022-05-25 16:29] LABS: Alanine Aminotransferase 14 U/L (0-31); Albumin Level 3.6 g/dL (3.5-5.0); Alkaline Phosphatase 103 U/L (39-117); Anion Gap 16 (12-20); Aspartate Amino Transferase 15 U/L (5-31); Bilirubin Total 0.5 mg/dL (0.0-1.0); Blood Urea Nitrogen 10 mg/dL (9-16); Calcium 9.3 mg/dL (8.4-10.2); Carbon Dioxide 27 mmol/L (22-29); Chloride 97 mmol/L (96-108); Creatinine Clr Calc Pharmacy 86.8; Estimated Glomerular Filt Rate > 60; Glucose Random 339 mg/dL (60-115); Magnesium 1.5 mg/dL (1.6-2.6); Potassium 3.6 mmol/L (3.3-5.1); Sodium 136 mmol/L (135-145); Total Protein 7.2 g/dL (6.5-8.0)
[2022-05-25 17:43] LABS: Troponin-I High Sensitivity 65.8 ng/L (<3.5-17.0)
[2022-05-25 17:55] VITALS: BP 185/152; PULSE 97; RESP 17; TEMP 37.1; O2SAT 98
[2022-05-25 18:05] LABS: D Dimer High Sensitivity 157 NG/ML
[2022-05-25 19:17] VITALS: BP 186/109; PULSE 96; RESP 17; O2SAT 98
[2022-05-25 20:23] LABS: Troponin-I High Sensitivity 59.3 ng/L (<3.5-17.0)
[2022-05-25 20:43] VITALS: BP 190/126; PULSE 97; RESP 13; TEMP 36.8; O2SAT 100
[2022-05-25 20:52] VITALS: BP 190/108
--- NOTE | 2022-05-25 20:59 | PC.NURSE ---
pt a+o x 4. skin pwd. dr aguilar made aware of bp. pt ambulatory at discharge. pt daughter at bedside . pt provided with discharge packet. pt verbalized understanding of discharge plan
== END 2022-05-25 21:01 | disposition home or self-care (01) ==
PROVIDERS: Physician Assistant; Emergency Provider Emergency Medicine Emergency Medical Services; PCP Internal Medicine
DX: R07.9 Chest pain, unspecified (principal); E11.9 Type 2 diabetes mellitus without complications; I10 Essential (primary) hypertension; E78.5 Hyperlipidemia, unspecified; Z87.891 Personal history of nicotine dependence; Z79.82 Long term (current) use of aspirin; Z79.899 Other long term (current) drug therapy; Z79.84 Long term (current) use of oral hypoglycemic drugs
CPT/HCPCS: 36415; 71045; 80053; 83735; 84484; 85025; 85379; 93005; 99283; 99285

== ENCOUNTER 2022-07-15 13:33 | Outpatient (REF) | payer OTHER, SELFPAY ==
[2022-07-15 13:49] LABS: MANUAL DIFF FLAG NO
[2022-07-15 14:01] LABS: Basophils Absolute Auto 0.1 X10*3/uL (0.0-0.2); Basophils Percent Auto 0.5 % (0-2); Eosinophils Absolute Auto 0.4 X10*3/uL (0.0-0.4); Eosinophils Percent Auto 3.5 % (0-4); Hemoglobin 12.3 g/dl (12.0-16.0); Imm Gran Abs Auto 0.05 X10*3/uL (0.00-0.03); Imm Gran Pct Auto 0.4 % (0.0-0.4); Lymphocytes Absolute Auto 3.3 X10*3/uL (1.2-4.9); Mean Corpuscular HGB Conc 31.5 g/dl (31.0-35.0); Mean Corpuscular Hemoglobin 22.4 pg (27.0-33.0); Monocytes Absolute Auto 0.7 X10*3/uL (0.1-1.2); Monocytes Percent Auto 5.6 % (2-11); Neutrophils Absolute Auto 7.6 x10*3/uL (2.0-8.3); Platelet Count 275 X10*3/uL (160-400); Red Blood Count 5.49 X10*6/uL (4.20-5.50); Red Cell Distribution Width 17.7 % (11.0-16.0); White Blood Count 12.1 X10*3/uL (4.8-10.8)
[2022-07-15 14:15] LABS: Estimated Average Glucose 329 mg/dL; Hemoglobin A1c % 13.1 %
[2022-07-15 14:43] LABS: Alanine Aminotransferase 26 U/L (0-31); Albumin Level 3.5 g/dL (3.5-5.0); Alkaline Phosphatase 117 U/L (39-117); Anion Gap 15 (12-20); Aspartate Amino Transferase 15 U/L (5-31); Bilirubin Total 0.4 mg/dL (0.0-1.0); Blood Urea Nitrogen 10 mg/dL (9-16); Carbon Dioxide 24 mmol/L (22-29); Chloride 100 mmol/L (96-108); Cholesterol 189 mg/dL; Estimated Glomerular Filt Rate > 60; Glucose Fasting 420 mg/dL (60-99); HDL Cholesterol 38 mg/dL; LDL Cholesterol Calculated 113 mg/dl; Potassium 3.6 mmol/L (3.3-5.1); Sodium 135 mmol/L (135-145); Total Protein 6.8 g/dL (6.5-8.0); Triglycerides 194 mg/dL
[2022-07-15 14:49] LABS: Thyroid Stimulating Hormone 1.44 uIU/mL (0.32-4.0)
[2022-07-15 15:18] LABS: Creatinine Urine 84.78 mg/dL; Microalbum/Creatinine Ratio Ur 101.4 ug/mg cr
== END 2022-07-15 13:34 | disposition home or self-care (01) ==
LOC: HO.LAB 13:33
PROVIDERS: PCP Internal Medicine; Visit Provider Internal Medicine
DX: E78.5 Hyperlipidemia, unspecified (principal); N28.9 Disorder of kidney and ureter, unspecified; E03.9 Hypothyroidism, unspecified; E11.69 Type 2 diabetes mellitus with other specified complication; E66.01 Morbid (severe) obesity due to excess calories; D64.9 Anemia, unspecified; E11.65 Type 2 diabetes mellitus with hyperglycemia
CPT/HCPCS: 36415; 80053; 80061; 82043; 83036; 84443; 85025

== ENCOUNTER 2022-08-17 15:27 | Emergency (ER) | payer OTHER, SELFPAY ==
--- NOTE | ~2022-08-17 | XR_ITS ---
EXAMINATION: XR CHEST CLINICAL INFORMATION: Shortness of breath and wheezing. COMPARISON: Chest radiograph 05/25/2022. TECHNIQUE: 2 views of the chest were obtained. FINDINGS: No significant abnormality is noted involving the heart, lungs, mediastinum, bony thorax or soft tissues. XR/XR chest 2V IMPRESSION: Unremarkable examination.
--- NOTE | 2022-08-17 15:31 | ECG_ITS ---
Test Reason : CHEST PAIN Blood Pressure : / mmHG Vent. Rate : 100 BPM Atrial Rate : 100 BPM P-R Int : 166 ms QRS Dur : 086 ms QT Int : 376 ms P-R-T Axes : 068 -19 144 degrees QTc Int : 485 ms Normal sinus rhythm Left ventricular hypertrophy with repolarization abnormality ( R in aVL , [place] product ) Prolonged QT Abnormal ECG When compared with ECG of 25-MAY-2022 15:09, No significant change was found Referred By: Eri Fine Electronically Signed By:LAURA RIDDLE
--- NOTE | 2022-08-17 15:50 | ED_ITS ---
HPI - General Adult General Chief complaint: Upper Respiratory Symptoms Stated complaint: Wheezing, Chest pain, Headache, Back/ leg pain. Time Seen by Provider: 08/17/22 17:36 Source: patient, family and old records reviewed Mode of arrival: ambulatory Limitations: no limitations History of Present Illness HPI narrative: 41 yo female with hx of anema, UTI, DM, obesity, TIA, HTN, asthma on 10mg prednisone daily, diabetes, normal cardiac cath 06/2021 she comes in with 3 days of upper back pain that radiates down the back and hurts to touch and move. She also feels her asthma is acting up and she is wheezing particularly at night. She is taking INH without relief, on low dose aspirin. She has no b/b incontinence or saddle anesthesia. She doesn't remember an injury to the back. MD complaint: back pain, asthma Onset (ago): day(s) Location: back Radiation: back Severity: moderate Quality: aching, dull and constant Pain Consistency: constant Relieving factors: none Exacerbating factors: movement Associated symptoms: other (she notes her asthma has been acting up) Treatments prior to arrival: none Related Data Home Medications Medication Instructions Recorded Confirmed valacyclovir 500 mg tablet 1 tab PO DAILY 07/21/21 07/04/22 albuterol sulfate 2.5 mg/3 mL mg inhalation Q4H PRN muscle spasm 11/30/21 07/04/22 (0.083 %) solution for nebulization Previous Rx's Medication Instructions Recorded blood-glucose meter (FreeStyle #1 ea 09/05/20 [place] kit) labetalol 100 mg tablet 100 mg PO BID #60 tabs 09/10/20 cholecalciferol (vitamin D3) 125 125 mcg PO DAILY #30 caps 02/26/21 mcg (5,000 unit) capsule omeprazole 40 mg capsule,delayed 40 mg PO DAILY #14 caps 02/26/21 release nebulizers #1 ea 06/17/21 lisinopril 40 mg tablet 40 mg PO DAILY #90 tabs 06/22/21 gabapentin 300 mg capsule 300 mg PO BEDTIME 14 days #14 caps 07/27/21 blood sugar diagnostic (FreeStyle #100 ea 11/30/21 Lite Strips) cyclobenzaprine 10 mg tablet 10 mg PO TID PRN muscle spasm #30 11/30/21 tabs lancets 28 gauge (FreeStyle #100 ea 11/30/21 Lancets) aspirin 81 mg tablet,delayed 81 mg PO DAILY #81 tabs 02/16/22 release ibuprofen 600 mg tablet 600 mg PO Q6H PRN pain #30 tabs 04/03/22 tamsulosin 0.4 mg capsule (Flomax) 0.4 mg PO DAILY 14 days #14 caps 04/03/22 albuterol sulfate 0.63 mg/3 mL 0.63 mg (3 mL) inhalation Q4-6H 04/25/22 solution for nebulization PRN shortness of breath or wheezing #90 mL albuterol sulfate 90 mcg/actuation 2 inh inhalation Q4-6H PRN 04/25/22 breath activated powder shortness of breath or wheezing #1 inhaler,sensor ea prednisone 20 mg tablet 40 mg PO DAILY 5 days #10 tabs 04/25/22 amlodipine 10 mg tablet 10 mg PO DAILY 30 days #30 tabs 04/26/22 metformin 500 mg tablet 500 mg PO BID 30 days #60 tabs 04/26/22 fluconazole 150 mg tablet 150 mg PO Q3D 2 doses #2 tabs 06/21/22 (Diflucan) blood pressure monitor #1 ea 06/24/22 albuterol sulfate 90 mcg/actuation 2 inh inhalation QID PRN shortness 07/04/22 aerosol inhaler of breath or wheezing #8.5 grams blood pressure test kit-large #1 ea 08/03/22 (Fangdd Versa Arm BP Monitor kit) hydrochlorothiazide 25 mg tablet 25 mg PO DAILY #90 tabs 08/04/22 morphine 15 mg immediate release 15 mg PO TID PRN pain #8 tabs 08/17/22 tablet Allergies Allergy/AdvReac Type Severity Reaction Status Date / Time Iodinated Contrast Media Allergy Intermediate Anaphylaxis Verified 08/17/22 15:54 latex [Latex] Allergy Unknown RASH Verified 08/17/22 15:54 Review of Systems Review of Systems: Constitutional : No Fever, No Chills ENT/Mouth : No Hoarseness, No sore throat, No Rhinorrhea Eyes: No Redness, No Discharge, No Vision Changes Cardiovascular : No Chest Pain, positive SOB, positive Dyspnea on Exertion, No Edema Respiratory : positive Cough, No Sputum, positive Wheezing, Gastrointestinal : No Nausea, No Vomiting, No Diarrhea, No abdominal Pain Genitourinary : No Dysuria, No Hematuria Musculoskeletal : No joint pain, No Myalgias, pos back pain, Skin : No rash Neuro : No Weakness, No Numbness, No Headache, no saddle anesthesia, no loss of control of bowel or bladder incontinence Psych : No anxiety, depression Heme/Lymph: No Bruising, No Bleeding Endocrine : No Polyuria, No Polydipsia All other systems reviewed and are negative PMFSH Past Medical History Attestation statement: The following information was validated with the patient. Medical History Anemia Asthma Bilateral hand numbness Bilateral hand pain Diabetes mellitus DJD (degenerative joint disease) GERD (gastroesophageal reflux disease) HSV (herpes simplex virus) infection HTN (hypertension) Obesity Smoking TIA (transient ischemic attack) Surgical History H/O cardiac catheterization Hx of appendectomy Hx of section Hx of cholecystectomy Hx of tubal ligation Family History Family History Mother Heart disease Diabetes Hypertension Hyperlipidemia Fibromyalgia Father No problems noted. Brother No problems noted. Brother No problems noted. Brother No problems noted. Sister Deep vein thrombosis Son No problems noted. Son No problems noted. Daughter Hypertension Daughter No problems noted. Maternal Aunt History of breast cancer Social History Social History Household Members: Children Housing: Apartment Do you presently have visiting nurse or other home services: No Alcohol intake: never Patient Tobacco Use Status: Former Tobacco user Tobacco use type: Cigarette Cigarettes Per Day: 3 e-Cigarette/Vaping Use: Never Used Second Hand Smoke Exposure: Yes Advance Directives: No Advance Directives Information Provided: No service: No Current occupational status: employed Cognitive needs: No Hearing needs: No Vision needs: Yes (glasses) Physical Exam ED Vital Signs: Vital Signs - 24 hr 08/17/22 15:51 08/17/22 18:02 08/17/22 18:59 Temperature 98.2 F 98.4 F 98.0 F Pulse Rate 95 103 H 97 Respiratory Rate 18 18 16 Blood Pressure 197/109 H 213/97 H 187/112 H Pulse Oximetry 98 95 96 Oxygen Delivery Method Room Air Room Air Room Air BMI result Body Mass Index 34.6 Appearance: Alert. Oriented X3. No acute distress. Eyes: Pupils equal, round and reactive to light. ENT: Pharynx normal. Neck: Normal inspection. Neck supple. CVS: Normal heart rate and rhythm. Pulses normal. Respiratory: No respiratory distress. Breath sounds very faint end exp wheeze posteriorly Abdomen: Soft and non-tender. Back: ttp along upper trapezius and between both scapula reproduces pain Skin: Skin warm and dry. Normal skin color. Normal skin turgor. Extremities: No lower extremity edema. No calf ttp Neuro: Oriented X 3. No motor deficit. No sensory deficit. Course Course Course Narrative: RME: 41yo F w/PMHx asthma, anemia, GERD, HTN, TIA, Asthma, c/o back pain, cough, wheezing, chest tightness & SOB x 2 days. Has been using inhaler w/o relief HTNsive 197/109 in triage > reports compliance with BP meds > reports head pressure at present, +diffuse insp/exp wheeze EKG, labs, CXR, COVID/FLU ordered Full HPI, ROS and PE to be performed by primary ED provider. Reevaluation(s) Reevaluation #1: troponin trending down it is around her baseline - suspect due to her HTN BNP lower than baseline Reevaluation #2: BP is trending down feeling better at this time will DC home with PO pain medications Reevaluation #3: patient feels better and is eager to leave, waiting on repeat BP though chronically high Medications Administered Discontinued Medications Generic Name Dose Route Start Last Admin Trade Name Freq PRN Reason Stop Dose Admin Albuterol/Ipratropium 3 ml 08/17/22 17:51 08/17/22 20:27 Albuterol/Iprat 2.5/0.5mg 3 Ml Ampul.Neb INHALE 08/17/22 17:52 3 ml ONCE ONE Administration Magnesium Sulfate 2 gm in 50 mls @ 25 mls/hr 08/17/22 17:38 08/17/22 20:08 Magnesium Sulfate/H2o IV 08/17/22 19:37 Infused ONCE ONE Infusion Labetalol HCl 100 mg 08/17/22 18:14 08/17/22 18:35 Labetalol Hcl 100 Mg Tablet PO 08/17/22 18:15 100 mg ONCE ONE Administration Protocol Morphine Sulfate 15 mg 08/17/22 17:52 08/17/22 17:59 Morphine Sulfate Immed Release 15 Mg Tablet PO 08/17/22 17:53 15 mg ONCE ONE Administration Prednisone 40 mg 08/17/22 18:28 08/17/22 18:36 Prednisone 20 Mg Tablet PO 08/17/22 18:29 40 mg ONCE ONE Administration Medical Decision Making Medical Decision Making [facility] Narrative: 41 yo female with PMH of anema, UTI, DM, obesity, TIA, HTN, asthma on 10mg prednisone daily, diabetes, normal cardiac cath 06/2021 - at this time she c/o reproduceable back pain that is muscular in nature - she has no red flags or cauda equina symptoms. She has no pain to the chest and her BP is chronically high due to not taking her labetalol tonight which I have ordered - I doubt dissection. She is PERC negative. At this time I have ordered magnesium to replete her will increase her prednisone for her asthma, PO morphine for her back pain as she states the tizanidine she is taking is not helping. Differential Diagnosis Differential Diagnoses: The differential diagnosis associated with the presentation includes back strain, asthma exacerbation, bronchitis Lab Data [facility] Lab Attestation statement: I reviewed the patient's lab results. 08/17/22 16:08 08/17/22 16:08 Labs: Lab Results 08/17/22 08/17/22 08/17/22 Range/Units 16:08 16:08 16:08 WBC 11.1 H (4.8-10.8) X10*3/uL RBC 5.21 (4.20-5.50) X10*6/uL Hgb 11.6 L (12.0-16.0) g/dl Hct 37.3 (37.0-47.0) % MCV 71.6 L (80.0-98.0) fL MCH 22.3 L (27.0-33.0) pg MCHC 31.1 (31.0-35.0) g/dl RDW 16.7 H (11.0-16.0) % Plt Count 264 (160-400) X10*3/uL MPV 10.7 (9.4-12.3) fL Immature Gran % (Auto) 0.3 (0.0-0.4) % Neut % (Auto) 62.4 (45-73) % Lymph % (Auto) 28.3 (20-40) % [place] % (Auto) 5.5 (2-11) % Eos % (Auto) 3.1 (0-4) % Baso % (Auto) 0.4 (0-2) % Lymph # (Auto) 3.1 (1.2-4.9) X10*3/uL [place] # (Auto) 0.6 (0.1-1.2) X10*3/uL Eos # (Auto) 0.3 (0.0-0.4) X10*3/uL Baso # (Auto) 0.0 (0.0-0.2) X10*3/uL Abs Immat Gran (auto) 0.03 (0.00-0.03) X10*3/uL Absolute Neuts (auto) 6.9 (2.0-8.3) x10*3/uL Absolute Nucleated RBC 0.000 (0.0-0.012) X10*3/uL Nucleated RBC % (auto) 0.0 (0.0-0.2) /100WBC PT 11.4 (10.0-13.1) SEC INR 1.0 (0.9-1.1) Sodium 137 (135-145) mmol/L Potassium 3.7 (3.3-5.1) mmol/L Chloride 99 (96-108) mmol/L Carbon Dioxide 26 (22-29) mmol/L Anion Gap 16 (12-20) BUN 16 (9-16) mg/dL Creatinine 0.94 (0.5-1.4) mg/dL Estim Creat Clear Calc 79.1 Estimated GFR > 60 Random Glucose 396 H* (60-115) mg/dL Calcium 9.4 (8.4-10.2) mg/dL Magnesium 1.5 L (1.6-2.6) mg/dL Total Bilirubin 0.3 (0.0-1.0) mg/dL Direct Bilirubin 0.1 (0.0-0.5) mg/dL AST 19 (5-31) U/L ALT 21 (0-31) U/L Alkaline Phosphatase 128 H (39-117) U/L Troponin I High Sens (<3.5-17.0) ng/L B-Natriuretic Peptide (<100) pg/mL Total Protein 6.9 (6.5-8.0) g/dL Albumin 3.5 (3.5-5.0) g/dL COVID-19 (YANN) (Negative) COVID-19 Clin Com Influenza Type A (BENITA) (Negative) Influenza Type B (BENITA) (Negative) Influenza A & B Note 08/17/22 08/17/22 08/17/22 Range/Units 16:08 16:08 16:08 WBC (4.8-10.8) X10*3/uL RBC (4.20-5.50) X10*6/uL Hgb (12.0-16.0) g/dl Hct (37.0-47.0) % MCV (80.0-98.0) fL MCH (27.0-33.0) pg MCHC (31.0-35.0) g/dl RDW (11.0-16.0) % Plt Count (160-400) X10*3/uL MPV (9.4-12.3) fL Immature Gran % (Auto) (0.0-0.4) % Neut % (Auto) (45-73) % Lymph % (Auto) (20-40) % [place] % (Auto) (2-11) % Eos % (Auto) (0-4) % Baso % (Auto) (0-2) % Lymph # (Auto) (1.2-4.9) X10*3/uL [place] # (Auto) (0.1-1.2) X10*3/uL Eos # (Auto) (0.0-0.4) X10*3/uL Baso # (Auto) (0.0-0.2) X10*3/uL Abs Immat Gran (auto) (0.00-0.03) X10*3/uL Absolute Neuts (auto) (2.0-8.3) x10*3/uL Absolute Nucleated RBC (0.0-0.012) X10*3/uL Nucleated RBC % (auto) (0.0-0.2) /100WBC PT (10.0-13.1) SEC INR (0.9-1.1) Sodium (135-145) mmol/L Potassium (3.3-5.1) mmol/L Chloride (96-108) mmol/L Carbon Dioxide (22-29) mmol/L Anion Gap (12-20) BUN (9-16) mg/dL Creatinine (0.5-1.4) mg/dL Estim Creat Clear Calc Estimated GFR Random Glucose (60-115) mg/dL Calcium (8.4-10.2) mg/dL Magnesium (1.6-2.6) mg/dL Total Bilirubin (0.0-1.0) mg/dL Direct Bilirubin (0.0-0.5) mg/dL AST (5-31) U/L ALT (0-31) U/L Alkaline Phosphatase (39-117) U/L Troponin I High Sens 73.2 H* (<3.5-17.0) ng/L B-Natriuretic Peptide (<100) pg/mL Total Protein (6.5-8.0) g/dL Albumin (3.5-5.0) g/dL COVID-19 (YANN) Negative (Negative) COVID-19 Clin Com See Note Influenza Type A (BENITA) Negative (Negative) Influenza Type B (BENITA) Negative (Negative) Influenza A & B Note See Note 08/17/22 08/17/22 Range/Units 16:08 17:25 WBC (4.8-10.8) X10*3/uL RBC (4.20-5.50) X10*6/uL Hgb (12.0-16.0) g/dl Hct (37.0-47.0) % MCV (80.0-98.0) fL MCH (27.0-33.0) pg MCHC (31.0-35.0) g/dl RDW (11.0-16.0) % Plt Count (160-400) X10*3/uL MPV (9.4-12.3) fL Immature Gran % (Auto) (0.0-0.4) % Neut % (Auto) (45-73) % Lymph % (Auto) (20-40) % [place] % (Auto) (2-11) % Eos % (Auto) (0-4) % Baso % (Auto) (0-2) % Lymph # (Auto) (1.2-4.9) X10*3/uL [place] # (Auto) (0.1-1.2) X10*3/uL Eos # (Auto) (0.0-0.4) X10*3/uL Baso # (Auto) (0.0-0.2) X10*3/uL Abs Immat Gran (auto) (0.00-0.03) X10*3/uL Absolute Neuts (auto) (2.0-8.3) x10*3/uL Absolute Nucleated RBC (0.0-0.012) X10*3/uL Nucleated RBC % (auto) (0.0-0.2) /100WBC PT (10.0-13.1) SEC INR (0.9-1.1) Sodium (135-145) mmol/L Potassium (3.3-5.1) mmol/L Chloride (96-108) mmol/L Carbon Dioxide (22-29) mmol/L Anion Gap (12-20) BUN (9-16) mg/dL Creatinine (0.5-1.4) mg/dL Estim Creat Clear Calc Estimated GFR Random Glucose (60-115) mg/dL Calcium (8.4-10.2) mg/dL Magnesium (1.6-2.6) mg/dL Total Bilirubin (0.0-1.0) mg/dL Direct Bilirubin (0.0-0.5) mg/dL AST (5-31) U/L ALT (0-31) U/L Alkaline Phosphatase (39-117) U/L Troponin I High Sens 69.4 H* (<3.5-17.0) ng/L B-Natriuretic Peptide 126 H (<100) pg/mL Total Protein (6.5-8.0) g/dL Albumin (3.5-5.0) g/dL COVID-19 (YANN) (Negative) COVID-19 Clin Com Influenza Type A (BENITA) (Negative) Influenza Type B (BENITA) (Negative) Influenza A & B Note Independent Interpretation I performed an independent interpretation of an: EKG and Plain X-Ray Interpretation: Rate: 100 Rhythm: NSR [place]: left, LVH Normal P waves. Normal LIT. Normal QRS complex. ST T wave : no LINA inverted I and AVL qTC: 485 prior studies: no change from May 1 The study has been interpreted contemporaneously by me. . Independent Historian Clinical information obtained from an independent historian. History obtained from or confirmed by: Other External Record Review External record reviewed: Inpatient record and Office record Prescription Management I considered prescription management with: Pain Medication Chronic Conditions Patient?s care impacted by: Hypertension Discharge Plan Discharge Clinical Impression: Asthma, Muscle strain of upper back, Hypomagnesemia Patient Disposition: Home, Self-Care Instructions: Asthma (ED), Muscle Strain (ED), Hypomagnesemia (ED) Additional Instructions: return to ED for any worsening symptoms or concernsn return for increased pain, loss of control of bowel or bladder, numbness weakness, severe pain, worsening breathing, no response to prednisone or your br eathing treatments. follow up with your doctor this week. I would avoid heavy lifting more than 10 lbs for 1 week. increase prednisone to 40mg daily for the next 4 days. monitor blood sugars Prescriptions: New morphine 15 mg tablet 15 mg PO TID PRN (Reason: pain) Qty: 8 0RF Rx Instructions: partial fill okay; Partial Fill upon patient request. No Action (DME) nebulizers Misc See Rx Instructions .Route Qty: 1 0RF Rx Instructions: to use every 4 hours as needed for wheezing aspirin 81 mg tablet,delayed release (DR/EC) 81 mg PO DAILY Qty: 81 8RF amlodipine 10 mg tablet 10 mg PO DAILY 30 Days Qty: 30 7RF Protocol: Hold for SBP< HOLD for SBP < : 90 metformin 500 mg tablet 500 mg PO BID 30 Days Qty: 60 7RF fluconazole [Diflucan] 150 mg tablet 150 mg PO Q3D Qty: 2 2RF Rx Instructions: may repeat second dose 72 hrs after first dose if symptoms persist (DME) blood pressure monitor Kit See Rx Instructions .Route Qty: 1 0RF Rx Instructions: As directed (DME) blood pressure test kit-large [CareTouch Versa Arm BP Monitor] Kit See Rx Instructions .Route Qty: 1 0RF Rx Instructions: As directed hydrochlorothiazide 25 mg tablet 25 mg PO DAILY Qty: 90 8RF (DME) blood-glucose meter [FreeStyle [place]] Kit See Rx Instructions .ROUTE .MEDSUPPLY Qty: 1 0RF Rx Instructions: As directed valacyclovir 500 mg tablet 1 tab PO DAILY tamsulosin [Flomax] 0.4 mg capsule 0.4 mg PO DAILY 14 Days Qty: 14 0RF ibuprofen 600 mg tablet 600 mg PO Q6H PRN (Reason: pain) Qty: 30 0RF albuterol sulfate 90 mcg/actuation aero powdr breath act w/sensor 2 inh inhalation Q4-6H PRN (Reason: shortness of breath or wheezing) Qty: 1 0RF Rx Instructions: May dispense medication equivalent accepted by patient's insurance albuterol sulfate 0.63 mg/3 mL solution for nebulization 0.63 mg inhalation Q4-6H PRN (Reason: shortness of breath or wheezing) Qty: 90 0RF Rx Instructions: May dispense medication equivalent accepted by patient's insurance prednisone 20 mg tablet 40 mg PO DAILY 5 Days Qty: 10 0RF labetalol 100 mg tablet 100 mg PO BID Qty: 60 8RF Protocol: Hold for SBP/HR < HOLD for SBP < : 90 HOLD for HR < : 60 albuterol sulfate 2.5 mg /3 mL (0.083 %) solution for nebulization inhalation Q4H PRN (Reason: muscle spasm) (DME) lancets [FreeStyle Lancets] 28 gauge misc See Rx Instructions .ROUTE .MEDSUPPLY Qty: 100 7RF Rx Instructions: BID As directed (DME) FreeStyle Lite Strips Strip See Rx Instructions .ROUTE .MEDSUPPLY Qty: 100 7RF Rx Instructions: BID As directed cyclobenzaprine 10 mg tablet 10 mg PO TID PRN (Reason: muscle spasm) Qty: 30 2RF albuterol sulfate 90 mcg/actuation HFA aerosol inhaler 2 inh inhalation QID PRN (Reason: shortness of breath or wheezing) Qty: 8.5 8RF gabapentin 300 mg capsule 300 mg PO BEDTIME 14 Days Qty: 14 0RF cholecalciferol (vitamin D3) 125 mcg (5,000 unit) capsule 125 mcg PO DAILY Qty: 30 2RF omeprazole 40 mg capsule,delayed release(DR/EC) 40 mg PO DAILY Qty: 14 0RF lisinopril 40 mg tablet 40 mg PO DAILY Qty: 90 3RF Stand Alone Forms: Work/School Release
[2022-08-17 15:51] VITALS: BP 197/109; PULSE 95; RESP 18; TEMP 36.8; O2SAT 98; BMI 34.6
[2022-08-17 16:15] LABS: MANUAL DIFF FLAG NO
[2022-08-17 16:22] LABS: Prothrombin Time 11.4 SEC (10.0-13.1)
[2022-08-17 16:29] LABS: Basophils Percent Auto 0.4 % (0-2); Eosinophils Absolute Auto 0.3 X10*3/uL (0.0-0.4); Eosinophils Percent Auto 3.1 % (0-4); Hematocrit 37.3 % (37.0-47.0); Hemoglobin 11.6 g/dl (12.0-16.0); Imm Gran Abs Auto 0.03 X10*3/uL (0.00-0.03); Imm Gran Pct Auto 0.3 % (0.0-0.4); Lymphocytes Absolute Auto 3.1 X10*3/uL (1.2-4.9); Lymphocytes Percent Auto 28.3 % (20-40); Mean Corpuscular HGB Conc 31.1 g/dl (31.0-35.0); Mean Corpuscular Hemoglobin 22.3 pg (27.0-33.0); Mean Corpuscular Volume 71.6 fL (80.0-98.0); Mean Platelet Volume 10.7 fL (9.4-12.3); Monocytes Absolute Auto 0.6 X10*3/uL (0.1-1.2); Monocytes Percent Auto 5.5 % (2-11); Neutrophils Absolute Auto 6.9 x10*3/uL (2.0-8.3); Neutrophils Percent Auto 62.4 % (45-73); Platelet Count 264 X10*3/uL (160-400); Red Blood Count 5.21 X10*6/uL (4.20-5.50); Red Cell Distribution Width 16.7 % (11.0-16.0); White Blood Count 11.1 X10*3/uL (4.8-10.8)
[2022-08-17 16:34] LABS: Alanine Aminotransferase 21 U/L (0-31); Albumin Level 3.5 g/dL (3.5-5.0); Alkaline Phosphatase 128 U/L (39-117); Anion Gap 16 (12-20); Aspartate Amino Transferase 19 U/L (5-31); Bilirubin Direct 0.1 mg/dL (0.0-0.5); Bilirubin Total 0.3 mg/dL (0.0-1.0); Blood Urea Nitrogen 16 mg/dL (9-16); Calcium 9.4 mg/dL (8.4-10.2); Carbon Dioxide 26 mmol/L (22-29); Chloride 99 mmol/L (96-108); Creatinine Clr Calc Pharmacy 79.1; Estimated Glomerular Filt Rate > 60; Glucose Random 396 mg/dL (60-115); Magnesium 1.5 mg/dL (1.6-2.6); Potassium 3.7 mmol/L (3.3-5.1); Sodium 137 mmol/L (135-145); Total Protein 6.9 g/dL (6.5-8.0)
[2022-08-17 16:41] LABS: Troponin-I High Sensitivity 73.2 ng/L (<3.5-17.0)
[2022-08-17 16:43] LABS: COVID-19 Test Negative (Negative); IDNOW Serial# 08D9AD1C; IDNOW Serial# 9DB6401D; Influenza A Negative (Negative); Influenza B2 Negative (Negative)
[2022-08-17] MEDS: Magnesium Sulfate/H2O 2 GM/50 ML PIGGYBACK IV (17:59)
[2022-08-17] MEDS: Morphine Sulfate Immed Release 15 MG TABLET PO (17:59)
[2022-08-17 18:02] VITALS: BP 213/97; PULSE 103; RESP 18; TEMP 36.9; O2SAT 95
[2022-08-17 18:21] LABS: Troponin-I High Sensitivity 69.4 ng/L (<3.5-17.0)
[2022-08-17] MEDS: Labetalol HCL 100 MG TABLET PO (18:35)
[2022-08-17] MEDS: predniSONE 20 MG TABLET 40 MG PO (18:36)
[2022-08-17 18:39] LABS: B Type Natriuretic Peptide 126 pg/mL (<100)
[2022-08-17 18:59] VITALS: BP 187/112; PULSE 97; RESP 16; TEMP 36.7; O2SAT 96
[2022-08-17] MEDS: Albuterol/Iprat 2.5/0.5MG 3 ML AMPUL.NEB INHALE (20:27)
[2022-08-17 20:43] VITALS: BP 177/93
[2022-08-17 20:50] LABS: Appearance Urine Clear; Color Urine Yellow; Glucose Urine UA >=1000 mg/dL (Negative); Leukocyte Esterase Urine Negative (Negative); Nitrite Urine Negative (Negative); Specific Gravity - Urine >= 1.030 (1.005-1.025); UMIC TRIGGER UACC YES; Urine Blood Negative (Negative); Urine Ketones Negative (Negative); Urine Protein Negative (Neg-Trace)
--- NOTE | 2022-08-17 20:54 | PC.NURSE ---
pt assessed at d/c. b/p 177/93 denies any chest pain, PA aware
[2022-08-17 20:56] LABS: Bacteria Urine None Seen (None Seen); Hyaline Casts Urine 0-2 /LPF (0-2); RBC Urine 0-2 /HPF (0-2); Squamous Epithelial Cell Urine 0-2 /HPF (0-2); WBC Urine 0-5 /HPF (0-5)
== END 2022-08-17 20:55 | disposition home or self-care (01) ==
PROVIDERS: Physician Assistant; Emergency Provider Emergency Medicine; PCP Internal Medicine
DX: J45.909 Unspecified asthma, uncomplicated (principal); E83.42 Hypomagnesemia; R06.02 Shortness of breath; S29.012A Strain of muscle and tendon of back wall of thorax, initial encounter; X58.XXXA Exposure to other specified factors, initial encounter; Z20.822 Contact with and (suspected) exposure to COVID-19; Y93.9 Activity, unspecified; Y92.9 Unspecified place or not applicable; Y99.9 Unspecified external cause status; Z79.899 Other long term (current) drug therapy
CPT/HCPCS: 36415; 71046; 80048; 80076; 81001; 83735; 83880; 84484; 85025; 85610; 87502; 87635; 93005; 96365; 96366; 99284; J3475

== ENCOUNTER 2022-08-21 19:57 | Emergency (ER) | payer OTHER, SELFPAY ==
--- NOTE | ~2022-08-21 | XR_ITS ---
EXAMINATION: XR CHEST CLINICAL INFORMATION: Shortness of breath COMPARISON: 08/17/2022 TECHNIQUE: 2 views of the chest were obtained. FINDINGS: No significant abnormality is noted involving the heart, lungs, mediastinum, bony thorax or soft tissues. XR/XR chest 2V IMPRESSION: No acute cardiopulmonary process.
[2022-08-21 20:15] VITALS: BP 223/141; PULSE 113; RESP 20; TEMP 37.1; O2SAT 97; BMI 34.4
--- NOTE | 2022-08-21 21:06 | ECG_ITS ---
Test Reason : CP Blood Pressure : / mmHG Vent. Rate : 096 BPM Atrial Rate : 096 BPM P-R Int : 164 ms QRS Dur : 090 ms QT Int : 374 ms P-R-T Axes : 063 -20 146 degrees QTc Int : 472 ms Normal sinus rhythm Possible Left atrial enlargement Left ventricular hypertrophy ( R in aVL , Neptali product ) Cannot rule out Septal infarct , age undetermined Marked ST abnormality, possible lateral subendocardial injury Abnormal ECG When compared with ECG of 17-AUG-2022 15:39, T wave inversion more evident in Lateral leads Referred By: Yuliana Stovall Electronically Signed By:STEFFEN ADAM MD
[2022-08-21 21:25] LABS: MANUAL DIFF FLAG NO
--- NOTE | 2022-08-21 21:25 | ED.GENADULT ---
HPI - General Adult General Chief complaint: Back Pain/Injury Stated complaint: Upper/Lower back pain/body aches Time Seen by Provider: 08/21/22 21:04 Source: patient and family Mode of arrival: ambulatory History of Present Illness HPI narrative: 41-year-old female who is currently on a course of prednisone and has a history of hypertension, diabetes and presents with complaints of entire back discomfort but to maximal areas are in between the shoulder blades as well as lower back. Patient states that this has resulted in chest discomfort difficulties with moving with a lot of pain, she states that the lower back pain radiates around into her anterior abdomen and that she has essentially been in bed for the past few days which is not like her. Related Data Home Medications Medication Instructions Recorded Confirmed valacyclovir 500 mg tablet 1 tab PO DAILY 07/21/21 08/18/22 albuterol sulfate 2.5 mg/3 mL mg inhalation Q4H PRN muscle spasm 11/30/21 08/18/22 (0.083 %) solution for nebulization Previous Rx's Medication Instructions Recorded blood-glucose meter ([place] FiberStyle #1 ea 09/05/20 Lytle kit) labetalol 100 mg tablet 100 mg PO BID #60 tabs 09/10/20 cholecalciferol (vitamin D3) 125 125 mcg PO DAILY #30 caps 02/26/21 mcg (5,000 unit) capsule omeprazole 40 mg capsule,delayed 40 mg PO DAILY #14 caps 02/26/21 release nebulizers #1 ea 06/17/21 lisinopril 40 mg tablet 40 mg PO DAILY #90 tabs 06/22/21 gabapentin 300 mg capsule 300 mg PO BEDTIME 14 days #14 caps 07/27/21 blood sugar diagnostic (FreeStyle #100 ea 11/30/21 Lite Strips) cyclobenzaprine 10 mg tablet 10 mg PO TID PRN muscle spasm #30 11/30/21 tabs lancets 28 gauge (FreeStyle #100 ea 11/30/21 Lancets) aspirin 81 mg tablet,delayed 81 mg PO DAILY #81 tabs 02/16/22 release ibuprofen 600 mg tablet 600 mg PO Q6H PRN pain #30 tabs 04/03/22 tamsulosin 0.4 mg capsule (Flomax) 0.4 mg PO DAILY 14 days #14 caps 04/03/22 albuterol sulfate 0.63 mg/3 mL 0.63 mg (3 mL) inhalation Q4-6H 04/25/22 solution for nebulization PRN shortness of breath or wheezing #90 mL albuterol sulfate 90 mcg/actuation 2 inh inhalation Q4-6H PRN 04/25/22 breath activated powder shortness of breath or wheezing #1 inhaler,sensor ea prednisone 20 mg tablet 40 mg PO DAILY 5 days #10 tabs 04/25/22 amlodipine 10 mg tablet 10 mg PO DAILY 30 days #30 tabs 04/26/22 metformin 500 mg tablet 500 mg PO BID 30 days #60 tabs 04/26/22 fluconazole 150 mg tablet 150 mg PO Q3D 2 doses #2 tabs 06/21/22 (Diflucan) blood pressure monitor #1 ea 06/24/22 albuterol sulfate 90 mcg/actuation 2 inh inhalation QID PRN shortness 07/04/22 aerosol inhaler of breath or wheezing #8.5 grams blood pressure test kit-large #1 ea 08/03/22 ([employer] Versa Arm BP Monitor kit) hydrochlorothiazide 25 mg tablet 25 mg PO DAILY #90 tabs 08/04/22 morphine 15 mg immediate release 15 mg PO TID PRN pain #8 tabs 08/17/22 tablet fluconazole 100 mg tablet 100 mg PO DAILY #3 tabs 08/18/22 (Diflucan) metformin 1,000 mg tablet 1,000 mg PO BID #60 tabs 08/18/22 lisinopril 40 mg tablet 40 mg PO DAILY #30 tabs 08/22/22 Allergies Allergy/AdvReac Type Severity Reaction Status Date / Time Iodinated Contrast Media Allergy Intermediate Anaphylaxis Verified 08/18/22 14:31 latex [Latex] Allergy Unknown RASH Verified 08/18/22 14:31 Review of Systems Review of Systems: Pertinent positives and negatives as stated in HPI [facility] Past Medical History Source: nursing notes reviewed Medical History Anemia Asthma Bilateral hand numbness Bilateral hand pain Diabetes mellitus DJD (degenerative joint disease) GERD (gastroesophageal reflux disease) HSV (herpes simplex virus) infection HTN (hypertension) Obesity Smoking TIA (transient ischemic attack) Surgical History H/O cardiac catheterization Hx of appendectomy Hx of section Hx of cholecystectomy Hx of tubal ligation Family History Family History Mother Heart disease Diabetes Hypertension Hyperlipidemia Fibromyalgia Father No problems noted. Brother No problems noted. Brother No problems noted. Brother No problems noted. Sister Deep vein thrombosis Son No problems noted. Son No problems noted. Daughter Hypertension Daughter No problems noted. Maternal Aunt History of breast cancer Social History Social History Household Members: Children Housing: Apartment Do you presently have visiting nurse or other home services: No Alcohol intake: never Patient Tobacco Use Status: Former Tobacco user Tobacco use type: Cigarette Cigarettes Per Day: 3 e-Cigarette/Vaping Use: Never Used Second Hand Smoke Exposure: Yes Advance Directives: No Advance Directives Information Provided: No Patient : No service: No Current occupational status: employed Cognitive needs: No Hearing needs: No Vision needs: Yes (glasses) Physical Exam ED Vital Signs: Vital Signs - 24 hr 08/21/22 20:15 08/21/22 21:53 08/21/22 22:47 Temperature 98.8 F Pulse Rate 113 H 96 96 Respiratory Rate 20 18 16 Blood Pressure 223/141 H 191/96 H 159/84 H Pulse Oximetry 97 95 98 Oxygen Delivery Method Room Air Room Air Room Air 08/21/22 23:47 08/22/22 00:42 Temperature 98.1 F Pulse Rate 96 100 Respiratory Rate 17 15 Blood Pressure 167/91 H 173/91 H Pulse Oximetry 98 97 Oxygen Delivery Method Room Air Room Air BMI result Body Mass Index 34.4 VITAL SIGNS: Reviewed. GENERAL: Well developed, well nourished, in moderate distress. HEAD: Normocephalic/atraumatic EYES: PERRLA, EOMI EARS: Ext canals without abnormality, TMs non-bulging and non-erythematous NOSE: Nares patent bilateral OROPHARYNX: no oral lesions noted, posterior pharynx clear NECK: Supple, no adenopathy LUNGS: Normal breath sounds. No adventitious sounds or accessory muscle use. SpO2<97> CARDIOVASCULAR: Regular rate and rhythm without noted murmurs ABDOMEN: Soft, non-tender, non-distended with bowel sounds. MUSCULOSKELETAL: No tenderness, deformities, or effusions noted on gross inspection. EXTREMITIES: No cyanosis, clubbing or edema. SKIN: Inspection of the skin reveals no rashes NEUROLOGIC: Alert and oriented x 4. Strength and sensation to light touch were grossly intact x 4, no facial asymmetry, no pronator drift, cranial nerves 2-12 grossly intact, DTRs intact. Medications Administered Discontinued Medications Generic Name Dose Route Start Last Admin Trade Name Peterq PRN Reason Stop Dose Admin Acetaminophen 975 mg 08/22/22 00:06 08/22/22 00:22 Acetaminophen 325 Mg Tablet PO 08/22/22 00:07 975 mg ONCE ONE Administration Al Hydroxide/Mg Hydroxide 30 ml 08/22/22 00:06 08/22/22 00:22 Magnesium Hydrox/Alum Hydrox 30 Ml Oral.Susp PO 08/22/22 00:07 30 ml ONCE ONE Administration Sodium Chloride 1,000 mls @ 999 mls/hr 08/21/22 23:45 08/22/22 00:55 Ns IV 08/22/22 00:45 Infused .Q1H1M MESHA Infusion Magnesium Sulfate/Dextrose 1 gm in 100 mls @ 300 mls/hr 08/22/22 01:19 08/22/22 02:30 Magnesium Sulfate/D5w IV 08/22/22 01:38 Infused ONCE ONE Infusion Insulin Human Lispro 5 unit 08/22/22 00:07 08/22/22 01:06 Insulin Lispro 100 Unit/Ml 3 Ml Vial SUBCUT 08/22/22 00:08 5 unit ONCE ONE Administration Labetalol HCl 5 mg 08/21/22 21:06 08/21/22 21:41 Labetalol Hcl 100 Mg/20 Ml Vial IVPUSH 08/21/22 21:07 5 mg ONCE ONE Administration Lidocaine 1 patch 08/22/22 00:06 08/22/22 00:23 Lidocaine 4 % Patch Adh..Patch TRANSDERMA 08/22/22 00:07 1 patch ONCE ONE Administration Protocol Lidocaine HCl 10 ml 08/22/22 00:06 08/22/22 00:22 Lidocaine Hcl Viscous 2 % 15 Ml Solution MUCOUS MEM 08/22/22 00:07 10 ml ONCE ONE Administration Medical Decision Making Medical Decision Making [facility] Narrative: 2124: 41-year-old female who has been seen here multiple times for hypertension emergency with associated chest pain, no evidence at this time of asthma symptoms, she is currently on prednisone which is likely driving her blood pressure up even higher, will attempt to treat with 5 mg IV push labetalol at this time. There are no focal findings, but given the distribution of her discomfort and extent of discomfort I have concerns that this may be blood pressure related, patient is allergic to IV contrast dye. Labs, UA, Coags, Trop, 2V CXR, EKG 2131: I have noted the leukocytosis which is secondary to patient's use of prednisone at this time. I have extensively reviewed all investigations, patient has been provided with a GI cocktail as well as combination analgesics for lower back discomfort, she has not complained of any chest pain or palpitations and the mid back pain that patient experienced has resolved. In addition, patient responded well to the 5 mg of labetalol. Serial troponins are chronically stable for this patient and EKG findings are likely indicative of elevated blood pressure. Patient's blood pressure has improved, glucose levels have improved and will discharge patient on prior prescription of lisinopril 40 mg daily, especially as patient is diabetic and is noted to be renal protective. I do not note any allergies to the lisinopril. Patient should continue with her Norvas as well. She was cautioned regarding the effects of the prednisone at this time, namely it increases blood pressure/glucose levels/acid production. My interpretation is patient likely to was experiencing side effects from steroid use as well as having increased fibromyalgia pain. Differential Diagnosis Please see the discussion above Lab Data Please see the discussion above 08/21/22 21:19 08/21/22 21:19 Labs: Lab Results 08/21/22 08/21/22 08/21/22 Range/Units 21:19 21:19 21:19 WBC 15.7 H (4.8-10.8) X10*3/uL RBC 5.68 H (4.20-5.50) X10*6/uL Hgb 12.6 (12.0-16.0) g/dl Hct 40.4 (37.0-47.0) % MCV 71.1 L (80.0-98.0) fL MCH 22.2 L (27.0-33.0) pg MCHC 31.2 (31.0-35.0) g/dl RDW 17.0 H (11.0-16.0) % Plt Count 288 (160-400) X10*3/uL MPV 12.0 (9.4-12.3) fL Immature Gran % (Auto) 0.4 (0.0-0.4) % Neut % (Auto) 63.3 (45-73) % Lymph % (Auto) 28.1 (20-40) % [place] % (Auto) 5.7 (2-11) % Eos % (Auto) 2.1 (0-4) % Baso % (Auto) 0.4 (0-2) % Lymph # (Auto) 4.4 (1.2-4.9) X10*3/uL [place] # (Auto) 0.9 (0.1-1.2) X10*3/uL Eos # (Auto) 0.3 (0.0-0.4) X10*3/uL Baso # (Auto) 0.1 (0.0-0.2) X10*3/uL Abs Immat Gran (auto) 0.06 H (0.00-0.03) X10*3/uL Absolute Neuts (auto) 9.9 H (2.0-8.3) x10*3/uL Absolute Nucleated RBC 0.000 (0.0-0.012) X10*3/uL Nucleated RBC % (auto) 0.0 (0.0-0.2) /100WBC PT 11.0 (10.0-13.1) SEC INR 1.0 (0.9-1.1) Sodium 132 L (135-145) mmol/L Potassium 3.5 (3.3-5.1) mmol/L Chloride 97 (96-108) mmol/L Carbon Dioxide 22 (22-29) mmol/L Anion Gap 17 (12-20) BUN 12 (9-16) mg/dL Creatinine 1.11 (0.5-1.4) mg/dL Estim Creat Clear Calc 66.8 Estimated GFR 54 POC Glucose (60-115) mg/dL Random Glucose 440 H* (60-115) mg/dL Calcium 10.2 D (8.4-10.2) mg/dL Magnesium 1.5 L (1.6-2.6) mg/dL Total Bilirubin 0.4 (0.0-1.0) mg/dL AST 27 (5-31) U/L ALT 54 H (0-31) U/L Alkaline Phosphatase 131 H (39-117) U/L Troponin I High Sens (<3.5-17.0) ng/L Total Protein 7.4 (6.5-8.0) g/dL Albumin 3.7 (3.5-5.0) g/dL Lipase 23 (8-78) U/L Ethyl Alcohol < 10 mg/dL 08/21/22 08/22/22 08/22/22 Range/Units 21:20 00:39 00:56 WBC (4.8-10.8) X10*3/uL RBC (4.20-5.50) X10*6/uL Hgb (12.0-16.0) g/dl Hct (37.0-47.0) % MCV (80.0-98.0) fL MCH (27.0-33.0) pg MCHC (31.0-35.0) g/dl RDW (11.0-16.0) % Plt Count (160-400) X10*3/uL MPV (9.4-12.3) fL Immature Gran % (Auto) (0.0-0.4) % Neut % (Auto) (45-73) % Lymph % (Auto) (20-40) % [place] % (Auto) (2-11) % Eos % (Auto) (0-4) % Baso % (Auto) (0-2) % Lymph # (Auto) (1.2-4.9) X10*3/uL [place] # (Auto) (0.1-1.2) X10*3/uL Eos # (Auto) (0.0-0.4) X10*3/uL Baso # (Auto) (0.0-0.2) X10*3/uL Abs Immat Gran (auto) (0.00-0.03) X10*3/uL Absolute Neuts (auto) (2.0-8.3) x10*3/uL Absolute Nucleated RBC (0.0-0.012) X10*3/uL Nucleated RBC % (auto) (0.0-0.2) /100WBC PT (10.0-13.1) SEC INR (0.9-1.1) Sodium (135-145) mmol/L Potassium (3.3-5.1) mmol/L Chloride (96-108) mmol/L Carbon Dioxide (22-29) mmol/L Anion Gap (12-20) BUN (9-16) mg/dL Creatinine (0.5-1.4) mg/dL Estim Creat Clear Calc Estimated GFR POC Glucose 339 H (60-115) mg/dL Random Glucose (60-115) mg/dL Calcium (8.4-10.2) mg/dL Magnesium (1.6-2.6) mg/dL Total Bilirubin (0.0-1.0) mg/dL AST (5-31) U/L ALT (0-31) U/L Alkaline Phosphatase (39-117) U/L Troponin I High Sens 64.5 H* 65.8 H* (<3.5-17.0) ng/L Total Protein (6.5-8.0) g/dL Albumin (3.5-5.0) g/dL Lipase (8-78) U/L Ethyl Alcohol mg/dL Independent Interpretation I performed an independent interpretation of an: EKG Interpretation: Normal sinus rhythm, HR-96, patient has significant ST abnormalities in the lateral distribution and remaining leads consistent with prior EKGs. Radiology Impression Radiologist Impression: My interpretation is in agreement with radiology's impression External Record Review External record reviewed: Outpatient record and Prior outpatient labs Chronic Conditions Patient?s care impacted by: Diabetes and Hypertension Discharge Plan Discharge Clinical Impression: Hyperglycemia due to diabetes mellitus, Hypertensive urgency, Fibromyalgia Patient Disposition: Home, Self-Care Instructions: Fibromyalgia (ED), Hypertensive Crisis (ED), Diabetic Hyperglycemia (ED) Additional Instructions: 1. Resume all home medications as prescribed. I strongly feel that the prednisone has contributed to the elevated blood pressure as well as increase in glucose levels and likely acid reflux. 2. I have represcribed lisinopril 40 mg daily and you should take this medication along with the amlodipine. 3. It is very important that you follow-up with your primary care provider on Monday morning. You will need to have repeat lab work and reassessment of your blood pressure. Return to the ER for any worsening symptoms. Prescriptions: New lisinopril 40 mg tablet 40 mg PO DAILY Qty: 30 0RF No Action (DME) nebulizers Misc See Rx Instructions .Route Qty: 1 0RF Rx Instructions: to use every 4 hours as needed for wheezing aspirin 81 mg tablet,delayed release (DR/EC) 81 mg PO DAILY Qty: 81 8RF amlodipine 10 mg tablet 10 mg PO DAILY 30 Days Qty: 30 7RF Protocol: Hold for SBP< HOLD for SBP < : 90 metformin 500 mg tablet 500 mg PO BID 30 Days Qty: 60 7RF fluconazole [Diflucan] 150 mg tablet 150 mg PO Q3D Qty: 2 2RF Rx Instructions: may repeat second dose 72 hrs after first dose if symptoms persist (DME) blood pressure monitor Kit See Rx Instructions .Route Qty: 1 0RF Rx Instructions: As directed (DME) blood pressure test kit-large [[employer] Versa Arm BP Monitor] Kit See Rx Instructions .Route Qty: 1 0RF Rx Instructions: As directed hydrochlorothiazide 25 mg tablet 25 mg PO DAILY Qty: 90 8RF (DME) blood-glucose meter [[employer] Lytle] Kit See Rx Instructions .ROUTE .MEDSUPPLY Qty: 1 0RF Rx Instructions: As directed valacyclovir 500 mg tablet 1 tab PO DAILY tamsulosin [Flomax] 0.4 mg capsule 0.4 mg PO DAILY 14 Days Qty: 14 0RF ibuprofen 600 mg tablet 600 mg PO Q6H PRN (Reason: pain) Qty: 30 0RF albuterol sulfate 90 mcg/actuation aero powdr breath act w/sensor 2 inh inhalation Q4-6H PRN (Reason: shortness of breath or wheezing) Qty: 1 0RF Rx Instructions: May dispense medication equivalent accepted by patient's insurance albuterol sulfate 0.63 mg/3 mL solution for nebulization 0.63 mg inhalation Q4-6H PRN (Reason: shortness of breath or wheezing) Qty: 90 0RF Rx Instructions: May dispense medication equivalent accepted by patient's insurance prednisone 20 mg tablet 40 mg PO DAILY 5 Days Qty: 10 0RF morphine 15 mg tablet 15 mg PO TID PRN (Reason: pain) Qty: 8 0RF Rx Instructions: partial fill okay; Partial Fill upon patient request. labetalol 100 mg tablet 100 mg PO BID Qty: 60 8RF Protocol: Hold for SBP/HR < HOLD for SBP < : 90 HOLD for HR < : 60 albuterol sulfate 2.5 mg /3 mL (0.083 %) solution for nebulization inhalation Q4H PRN (Reason: muscle spasm) (DME) lancets [FreeStyle Lancets] 28 gauge misc See Rx Instructions .ROUTE .MEDSUPPLY Qty: 100 7RF Rx Instructions: BID As directed (DME) FreeStyle Lite Strips Strip See Rx Instructions .ROUTE .MEDSUPPLY Qty: 100 7RF Rx Instructions: BID As directed cyclobenzaprine 10 mg tablet 10 mg PO TID PRN (Reason: muscle spasm) Qty: 30 2RF albuterol sulfate 90 mcg/actuation HFA aerosol inhaler 2 inh inhalation QID PRN (Reason: shortness of breath or wheezing) Qty: 8.5 8RF gabapentin 300 mg capsule 300 mg PO BEDTIME 14 Days Qty: 14 0RF metformin 1,000 mg tablet 1,000 mg PO BID Qty: 60 8RF fluconazole [Diflucan] 100 mg tablet 100 mg PO DAILY Qty: 3 0RF cholecalciferol (vitamin D3) 125 mcg (5,000 unit) capsule 125 mcg PO DAILY Qty: 30 2RF omeprazole 40 mg capsule,delayed release(DR/EC) 40 mg PO DAILY Qty: 14 0RF lisinopril 40 mg tablet 40 mg PO DAILY Qty: 90 3RF
[2022-08-21 21:26] LABS: Hemoglobin 12.6 g/dl (12.0-16.0); SCAN SMEAR FLAG 1
[2022-08-21 21:28] LABS: Basophils Absolute Auto 0.1 X10*3/uL (0.0-0.2); Basophils Percent Auto 0.4 % (0-2); Eosinophils Absolute Auto 0.3 X10*3/uL (0.0-0.4); Eosinophils Percent Auto 2.1 % (0-4); Hematocrit 40.4 % (37.0-47.0); Imm Gran Abs Auto 0.06 X10*3/uL (0.00-0.03); Imm Gran Pct Auto 0.4 % (0.0-0.4); Lymphocytes Absolute Auto 4.4 X10*3/uL (1.2-4.9); Lymphocytes Percent Auto 28.1 % (20-40); Mean Corpuscular HGB Conc 31.2 g/dl (31.0-35.0); Mean Corpuscular Hemoglobin 22.2 pg (27.0-33.0); Mean Corpuscular Volume 71.1 fL (80.0-98.0); Monocytes Absolute Auto 0.9 X10*3/uL (0.1-1.2); Monocytes Percent Auto 5.7 % (2-11); Neutrophils Absolute Auto 9.9 x10*3/uL (2.0-8.3); Neutrophils Percent Auto 63.3 % (45-73); Platelet Count 288 X10*3/uL (160-400); Red Blood Count 5.68 X10*6/uL (4.20-5.50); White Blood Count 15.7 X10*3/uL (4.8-10.8)
[2022-08-21 21:30] LABS: PLT ABN DIST 1
[2022-08-21] MEDS: Labetalol HCL 100 MG/20 ML VIAL IVPUSH (21:41)
[2022-08-21 21:53] VITALS: BP 191/96; PULSE 96; RESP 18; O2SAT 95
[2022-08-21 21:57] LABS: Alanine Aminotransferase 54 U/L (0-31); Albumin Level 3.7 g/dL (3.5-5.0); Alkaline Phosphatase 131 U/L (39-117); Anion Gap 17 (12-20); Aspartate Amino Transferase 27 U/L (5-31); Bilirubin Total 0.4 mg/dL (0.0-1.0); Blood Urea Nitrogen 12 mg/dL (9-16); Calcium 10.2 mg/dL (8.4-10.2); Carbon Dioxide 22 mmol/L (22-29); Chloride 97 mmol/L (96-108); Creatinine Clr Calc Pharmacy 66.8; Estimated Glomerular Filt Rate 54; Glucose Random 440 mg/dL (60-115); Potassium 3.5 mmol/L (3.3-5.1); Sodium 132 mmol/L (135-145); Total Protein 7.4 g/dL (6.5-8.0)
[2022-08-21 21:59] LABS: Troponin-I High Sensitivity 64.5 ng/L (<3.5-17.0)
[2022-08-21 22:04] LABS: Ethanol < 10 mg/dL; Lipase 23 U/L (8-78); Magnesium 1.5 mg/dL (1.6-2.6)
[2022-08-21 22:47] VITALS: BP 159/84; PULSE 96; RESP 16; O2SAT 98
[2022-08-21] MEDS: 0.9 % Sodium Chloride 1,000 ML 999 ML IV (23:41)
[2022-08-21 23:47] VITALS: BP 167/91; PULSE 96; RESP 17; O2SAT 98
[2022-08-22] MEDS: Lidocaine HCl Viscous 2 % 15 ML SOLUTION 10 ML MUCOUS MEM (00:22)
[2022-08-22] MEDS: Magnesium Hydrox/Alum Hydrox 30 ML ORAL.SUSP PO (00:22)
[2022-08-22] MEDS: Acetaminophen 325 MG TABLET 975 MG PO (00:22)
[2022-08-22] MEDS: Lidocaine 4 % Patch ADH..PATCH 1 PATCH TRANSDERMA (00:23)
--- NOTE | 2022-08-22 00:25 | ECG_ITS ---
Test Reason : BACK PAIN Blood Pressure : / mmHG Vent. Rate : 099 BPM Atrial Rate : 099 BPM P-R Int : 168 ms QRS Dur : 088 ms QT Int : 380 ms P-R-T Axes : 057 -31 145 degrees QTc Int : 487 ms Normal sinus rhythm Possible Left atrial enlargement Left axis deviation Left ventricular hypertrophy ( R in aVL , [place] product ) Cannot rule out Septal infarct (cited on or before 21-AUG-2022) Marked ST abnormality, possible lateral subendocardial injury Abnormal ECG When compared with ECG of 21-AUG-2022 21:43, No significant change was found Referred By: Yuliana Stovall Electronically Signed By:STEFFEN ADAM MD
[2022-08-22 00:42] VITALS: BP 173/91; PULSE 100; RESP 15; TEMP 36.7; O2SAT 97
[2022-08-22 01:01] LABS: Glucose, Whole Blood 339 mg/dL (60-115)
[2022-08-22] MEDS: Insulin Lispro 100 UNIT/ML 3 ML VIAL SUBCUT (01:06)
[2022-08-22 01:16] LABS: Troponin-I High Sensitivity 65.8 ng/L (<3.5-17.0)
[2022-08-22] MEDS: Magnesium Sulfate/D5W 1 GM/100 ML PIGGYBACK IV (02:05)
[2022-08-22 03:10] LABS: Glucose, Whole Blood 303 mg/dL (60-115)
== END 2022-08-22 03:33 | disposition home or self-care (01) ==
PROVIDERS: Emergency Provider Student in an Organized Health Care Education/Training Program
DX: E11.65 Type 2 diabetes mellitus with hyperglycemia (principal); I16.0 Hypertensive urgency; M79.7 Fibromyalgia; M54.50 Low back pain, unspecified; R07.89 Other chest pain; Z79.899 Other long term (current) drug therapy
CPT/HCPCS: 36415; 71046; 80053; 80307; 82947; 83690; 83735; 84484; 85025; 85610; 93005; 96361; 96374; 96375; 99285; J3475

== ENCOUNTER 2022-08-23 15:21 | Outpatient (REF) | payer OTHER, SELFPAY ==
[2022-08-23 16:29] LABS: Magnesium 1.5 mg/dL (1.6-2.6)
== END 2022-08-23 15:22 | disposition home or self-care (01) ==
LOC: HO.LAB 15:21
PROVIDERS: PCP Internal Medicine; Visit Provider Internal Medicine
DX: E83.42 Hypomagnesemia (principal)
CPT/HCPCS: 36415; 83735

== ENCOUNTER → 2022-09-30 09:09 | Outpatient (BNVA) | payer OTHER, SELFPAY | PROVIDERS: PCP Internal Medicine; Visit Provider Physician Assistant | DX: M54.40 Lumbago with sciatica, unspecified side (principal) | CPT/HCPCS: 99202 ==

== ENCOUNTER 2022-10-21 14:48 | Emergency (ER) | payer OTHER, SELFPAY ==
--- NOTE | ~2022-10-21 | CT_ITS ---
EXAMINATION: CT ABDOMEN AND PELVIS WITHOUT CONTRAST CLINICAL INFORMATION: Epigastric pain COMPARISON: 04/03/2022 TECHNIQUE: Multidetector volumetric imaging was performed from the superior aspect of the liver through the pubic symphysis. Sagittal and coronal reformatted images were obtained on the technologist's workstation. This CT examination was performed using dose optimization techniques as appropriate, variously including the following: *Automated exposure control *Adjustment of mA and/or kV according to patient size (this includes techniques or standardized protocols for targeted exams where dose is matched to indication/reason for exam; i.e. extremities or head) *Use of iterative reconstruction technique DLP: 575 mGy-cm FINDINGS: LUNG BASES: The visualized lung bases are unremarkable. LIVER, GALLBLADDER, AND BILIARY TREE: Abnormal appearing liver. There are large areas of low attenuation left lobe and at least one small area of abnormal at low attenuation in the right lobe.. Status post cholecystectomy PANCREAS: Unremarkable. SPLEEN: Unremarkable. ADRENAL GLANDS: Unremarkable. KIDNEYS AND URETERS: Nonobstructing calculus mid to lower pole left kidney. BLADDER: Unremarkable. GASTROINTESTINAL TRACT: The bowel pattern is felt to be nonobstructing. There is no free fluid. Some possible mild thickening of mucosa at the level the GE junction in the distal esophagus ABDOMINAL WALL: Umbilical herniation of omental fat is noted also seen previously. Mild associated soft tissue stranding also seen previously LYMPH NODES: There is no bulky adenopathy here. A few small mildly prominent nodes in the gali similar to previous. Some nonpathologically enlarged nodes in the gastric hepatic window and a few small nonpathologically enlarged nodes the GE junction. VASCULAR: Unremarkable. PELVIC VISCERA: Unremarkable. OSSEOUS STRUCTURES: Unremarkable. CT/CT abdomen pelvis wo IV con IMPRESSION: As described above heterogeneous attenuation with several large areas in the left lobe of liver. This could possibly represent fatty change in the liver but underlying lesions could not be excluded. Liver is felt to be enlarged. Possible mild corrugation of the liver contour. Cirrhosis cannot be excluded. Recommend MRI of the abdomen to further evaluate pre and postcontrast. Otherwise findings are as described above. Some possible mild thickening at the level of the distal esophagus junction. Direct visualization would be recommended. Fleischner guidelines were followed.
--- NOTE | 2022-10-21 14:54 | ECG_ITS ---
Test Reason : abd pain Blood Pressure : / mmHG Vent. Rate : 097 BPM Atrial Rate : 097 BPM P-R Int : 158 ms QRS Dur : 088 ms QT Int : 376 ms P-R-T Axes : 049 -21 145 degrees QTc Int : 477 ms Normal sinus rhythm Left ventricular hypertrophy with repolarization abnormality ( R in aVL , Raymond product ) Abnormal ECG When compared with ECG of 22-AUG-2022 00:28, T wave inversion less evident in Lateral leads Referred By: Sigrid Price Electronically Signed By:STEFFEN ADAM MD
--- NOTE | 2022-10-21 14:54 | ED.GENADULT ---
HPI - General Adult General Chief complaint: Abdominal Pain Stated complaint: Chest & Stomach Pain Time Seen by Provider: 10/21/22 19:29 Source: patient Mode of arrival: ambulatory Limitations: no limitations History of Present Illness HPI narrative: Patient comes emergency room complaining of epigastric pain, left rib pain/left flank pain also complaining of abdominal bloating, nausea, no vomiting, also complaining of bloody stool. Denies chest pain or shortness of breath, no diarrhea, no fever. In triage she was noted that patient's blood pressure is 214/113 Related Data Home Medications Medication Instructions Recorded Confirmed valacyclovir 500 mg tablet 1 tab PO DAILY 07/21/21 09/02/22 albuterol sulfate 2.5 mg/3 mL mg inhalation Q4H PRN muscle spasm 11/30/21 09/02/22 (0.083 %) solution for nebulization Previous Rx's Medication Instructions Recorded blood-glucose meter (FreeStyle #1 ea 09/05/20 [place] kit) labetalol 100 mg tablet 100 mg PO BID #60 tabs 09/10/20 cholecalciferol (vitamin D3) 125 125 mcg PO DAILY #30 caps 02/26/21 mcg (5,000 unit) capsule omeprazole 40 mg capsule,delayed 40 mg PO DAILY #14 caps 02/26/21 release nebulizers #1 ea 06/17/21 lisinopril 40 mg tablet 40 mg PO DAILY #90 tabs 06/22/21 gabapentin 300 mg capsule 300 mg PO BEDTIME 14 days #14 caps 07/27/21 cyclobenzaprine 10 mg tablet 10 mg PO TID PRN muscle spasm #30 11/30/21 tabs lancets 28 gauge (FreeStyle #100 ea 11/30/21 Lancets) aspirin 81 mg tablet,delayed 81 mg PO DAILY #81 tabs 02/16/22 release ibuprofen 600 mg tablet 600 mg PO Q6H PRN pain #30 tabs 04/03/22 tamsulosin 0.4 mg capsule (Flomax) 0.4 mg PO DAILY 14 days #14 caps 04/03/22 albuterol sulfate 0.63 mg/3 mL 0.63 mg (3 mL) inhalation Q4-6H 04/25/22 solution for nebulization PRN shortness of breath or wheezing #90 mL albuterol sulfate 90 mcg/actuation 2 inh inhalation Q4-6H PRN 04/25/22 breath activated powder shortness of breath or wheezing #1 inhaler,sensor ea prednisone 20 mg tablet 40 mg PO DAILY 5 days #10 tabs 04/25/22 metformin 500 mg tablet 500 mg PO BID 30 days #60 tabs 04/26/22 fluconazole 150 mg tablet 150 mg PO Q3D 2 doses #2 tabs 06/21/22 (Diflucan) blood pressure monitor #1 ea 06/24/22 albuterol sulfate 90 mcg/actuation 2 inh inhalation QID PRN shortness 07/04/22 aerosol inhaler of breath or wheezing #8.5 grams blood pressure test kit-large #1 ea 08/03/22 ([employer] Versa Arm BP Monitor kit) hydrochlorothiazide 25 mg tablet 25 mg PO DAILY #90 tabs 08/04/22 morphine 15 mg immediate release 15 mg PO TID PRN pain #8 tabs 08/17/22 tablet fluconazole 100 mg tablet 100 mg PO DAILY #3 tabs 08/18/22 (Diflucan) metformin 1,000 mg tablet 1,000 mg PO BID #60 tabs 08/18/22 lisinopril 40 mg tablet 40 mg PO DAILY #30 tabs 08/22/22 blood sugar diagnostic (FreeStyle #100 ea 09/12/22 Lite Strips) naproxen 500 mg tablet 500 mg PO BID PRN for pain #60 tabs 09/29/22 amlodipine 10 mg tablet 10 mg PO DAILY #90 tabs 10/05/22 omeprazole 20 mg capsule,delayed 20 mg PO DAILY #20 caps 10/21/22 release Allergies Allergy/AdvReac Type Severity Reaction Status Date / Time Iodinated Contrast Media Allergy Intermediate Anaphylaxis Verified 10/21/22 15:06 latex [Latex] Allergy Unknown RASH Verified 10/21/22 15:06 Review of Systems Review of Systems: Constitutional : No Weight loss, No Fever, No Chills, No Night Sweats, No Fatigue, No Malaise ENT/Mouth : No Hearing loss, No Ear Pain, No Nasal Congestion, No Sinus Pain, No Hoarseness, No sore throat, No Rhinorrhea, No Swallowing Difficulty Eyes: No Eye Pain, No Swelling, No Redness, No Foreign Body, No Discharge, No Vision Changes Cardiovascular : No Chest Pain, No SOB, No Dyspnea on Exertion, No Orthopnea, No Edema, No Palpitations Respiratory : No Cough, No Sputum, No Wheezing, No Smoke Exposure, No Dyspnea Gastrointestinal : No Nausea, No Vomiting, No Diarrhea, No Constipation, No abdominal Pain, No Hematochezia, No Melena Genitourinary : no irregular bleeding, No Dysuria, No Urinary Frequency, No Hematuria, No Urinary Incontinence, No Urgency, No Flank Pain, No Urinary Flow Changes, No Hesitancy Musculoskeletal : No joint pain, No Myalgias, No Joint Swelling Skin : No Skin Lesions, No rash Neuro : No Weakness, No Numbness, No Paresthesias, No Loss of Consciousness, No Dizziness, No Headache Psych : No Anxiety/Panic, No Depression, No SI/HI/AH/VH, No Social Issues, Heme/Lymph: No Bruising, No Bleeding,No Lymphadenopathy Endocrine : No Polyuria, No Polydipsia, No Temperature Intolerance PMFSH Past Medical History Medical History Anemia Asthma Bilateral hand numbness Bilateral hand pain Diabetes mellitus DJD (degenerative joint disease) GERD (gastroesophageal reflux disease) HSV (herpes simplex virus) infection HTN (hypertension) Obesity Smoking TIA (transient ischemic attack) Surgical History H/O cardiac catheterization Hx of appendectomy Hx of section Hx of cholecystectomy Hx of tubal ligation Family History Family History Mother Heart disease Diabetes Hypertension Hyperlipidemia Fibromyalgia Father No problems noted. Brother No problems noted. Brother No problems noted. Brother No problems noted. Sister Deep vein thrombosis Son No problems noted. Son No problems noted. Daughter Hypertension Daughter No problems noted. Maternal Aunt History of breast cancer Social History Social History Household Members: Children Housing: Apartment Do you presently have visiting nurse or other home services: No Alcohol intake: current Alcohol intake frequency: holidays/special occasions only Patient Tobacco Use Status: Former Tobacco user Tobacco use type: Cigarette Cigarettes Per Day: 3 Smoked in Last 30 Days: No e-Cigarette/Vaping Use: Never Used Second Hand Smoke Exposure: Yes Use of substances other than those prescribed or required for medical reasons: No Advance Directives: No Advance Directives Information Provided: Yes Patient : No service: No Current occupational status: employed Cognitive needs: No Hearing needs: No Vision needs: Yes (glasses) Physical Exam ED Vital Signs: Vital Signs - 24 hr 10/21/22 15:06 10/21/22 18:52 10/21/22 20:01 Temperature 97 F 98.4 F Pulse Rate 97 88 93 Respiratory Rate 16 18 Blood Pressure 198/107 H 214/113 H 206/106 H Pulse Oximetry 98 99 Oxygen Delivery Method Room Air Room Air 10/21/22 20:57 10/21/22 22:56 Temperature 99.8 F 98.9 F Pulse Rate 93 86 Respiratory Rate 17 20 Blood Pressure 172/81 H 187/103 H Pulse Oximetry 100 98 Oxygen Delivery Method Room Air Room Air BMI result Body Mass Index 34.7 Course Course Course Narrative: This is a rapid medical exam: Additional HPI, ROS, PE not included below will be deferred to primary provider. Patient is a 42-year-old female with history of cardiac cath, anemia, T2DM, TIA, GERD, HTN, asthma, appendectomy presenting to the emergency department with complaint of generalized abdominal pain, epigastric pain, burning sensation to esophagus, left flank pain, for 2 hours, noted bright red rectal bleeding last night. Feels bloated. Reports nausea but denies vomiting. Denies fevers. Hypertensive in triage. Plan: EKG, labs Medications Administered Discontinued Medications Generic Name Dose Route Start Last Admin Trade Name Freq PRN Reason Stop Dose Admin Labetalol HCl 100 mg 10/21/22 19:39 10/21/22 20:02 Labetalol Hcl 100 Mg Tablet PO 10/21/22 19:40 100 mg ONCE ONE Administration Protocol Medical Decision Making Medical Decision Making [facility] Narrative: -initially, patient came with multiple complaints, including chest pain, abdominal pain, rib pain. Admission was considered. -patient while blood cell count chronically elevated, LFTs within normal limits, glucose 344 -patient's troponin 45.9, this is chronic, less elevated than usual -urinalysis negative -interpretation of CT scan of the abdomen, no obstruction, no kidney stones -blood pressure improved, 172/81, without any intervention. Patient asymptomatic -occult blood/guaiac: negative -I discussed with the patient that she will need an upper endoscopy and an MRI of her liver, patient instructed to follow-up with her primary care physician and PCP Differential Diagnosis Differential Diagnoses: The differential diagnosis associated with the presentation includes Admission/Observation Consideration of admission/observation: Escalation of care including admission/observation considered Lab Data MDM Lab Attestation statement: I reviewed the patient's lab results. 10/21/22 15:35 10/21/22 15:35 Labs: Lab Results 10/21/22 10/21/22 10/21/22 Range/Units 15:35 15:35 15:35 WBC 13.4 H (4.8-10.8) X10*3/uL RBC 5.30 (4.20-5.50) X10*6/uL Hgb 12.0 (12.0-16.0) g/dl Hct 38.6 (37.0-47.0) % MCV 72.8 L (80.0-98.0) fL MCH 22.6 L (27.0-33.0) pg MCHC 31.1 (31.0-35.0) g/dl RDW 17.3 H (11.0-16.0) % Plt Count 261 (160-400) X10*3/uL MPV 11.2 (9.4-12.3) fL Immature Gran % (Auto) 0.6 H (0.0-0.4) % Neut % (Auto) 70.8 (45-73) % Lymph % (Auto) 20.0 (20-40) % [place] % (Auto) 5.3 (2-11) % Eos % (Auto) 2.9 (0-4) % Baso % (Auto) 0.4 (0-2) % Lymph # (Auto) 2.7 (1.2-4.9) X10*3/uL [place] # (Auto) 0.7 (0.1-1.2) X10*3/uL Eos # (Auto) 0.4 (0.0-0.4) X10*3/uL Baso # (Auto) 0.1 (0.0-0.2) X10*3/uL Abs Immat Gran (auto) 0.08 H (0.00-0.03) X10*3/uL Absolute Neuts (auto) 9.5 H (2.0-8.3) x10*3/uL Absolute Nucleated RBC 0.000 (0.0-0.012) X10*3/uL Nucleated RBC % (auto) 0.0 (0.0-0.2) /100WBC Smear Tech's Comments VERIFIED PT 12.4 (11.1-13.3) SEC INR 1.0 (0.9-1.1) Sodium 135 (135-145) mmol/L Potassium 3.5 (3.3-5.1) mmol/L Chloride 100 (96-108) mmol/L Carbon Dioxide 23 (22-29) mmol/L Anion Gap 16 (12-20) BUN 9 (9-16) mg/dL Creatinine 0.88 (0.5-1.4) mg/dL Estim Creat Clear Calc 83.9 Estimated GFR > 60 Random Glucose 344 H (60-115) mg/dL Calcium 8.8 D (8.4-10.2) mg/dL Total Bilirubin 0.4 (0.0-1.0) mg/dL AST 16 (5-31) U/L ALT 16 (0-31) U/L Alkaline Phosphatase 93 (39-117) U/L Troponin I High Sens (<3.5-17.0) ng/L Total Protein 7.1 (6.5-8.0) g/dL Albumin 3.5 (3.5-5.0) g/dL Lipase 19 (8-78) U/L Beta HCG, Quant mIU/mL Urine Color Urine Appearance Urine pH (5.0-9.0) Ur Specific [place] (1.005-1.025) Urine Protein (Neg-Trace) mg/dL Urine Glucose (UA) (Negative) mg/dL Urine Ketones (Negative) mg/dL Urine Blood (Negative) Urine Nitrite (Negative) Ur Leukocyte Esterase (Negative) Urine RBC (0-2) /HPF Urine WBC (0-5) /HPF Ur Squamous Epith Cells (0-2) /HPF Urine Bacteria (None Seen) Hyaline Casts (0-2) /LPF Stool Occult Blood (NEGATIVE) 10/21/22 10/21/22 10/21/22 Range/Units 15:35 15:36 20:08 WBC (4.8-10.8) X10*3/uL RBC (4.20-5.50) X10*6/uL Hgb (12.0-16.0) g/dl Hct (37.0-47.0) % MCV (80.0-98.0) fL MCH (27.0-33.0) pg MCHC (31.0-35.0) g/dl RDW (11.0-16.0) % Plt Count (160-400) X10*3/uL MPV (9.4-12.3) fL Immature Gran % (Auto) (0.0-0.4) % Neut % (Auto) (45-73) % Lymph % (Auto) (20-40) % [place] % (Auto) (2-11) % Eos % (Auto) (0-4) % Baso % (Auto) (0-2) % Lymph # (Auto) (1.2-4.9) X10*3/uL [place] # (Auto) (0.1-1.2) X10*3/uL Eos # (Auto) (0.0-0.4) X10*3/uL Baso # (Auto) (0.0-0.2) X10*3/uL Abs Immat Gran (auto) (0.00-0.03) X10*3/uL Absolute Neuts (auto) (2.0-8.3) x10*3/uL Absolute Nucleated RBC (0.0-0.012) X10*3/uL Nucleated RBC % (auto) (0.0-0.2) /100WBC Smear Tech's Comments PT (11.1-13.3) SEC INR (0.9-1.1) Sodium (135-145) mmol/L Potassium (3.3-5.1) mmol/L Chloride (96-108) mmol/L Carbon Dioxide (22-29) mmol/L Anion Gap (12-20) BUN (9-16) mg/dL Creatinine (0.5-1.4) mg/dL Estim Creat Clear Calc Estimated GFR Random Glucose (60-115) mg/dL Calcium (8.4-10.2) mg/dL Total Bilirubin (0.0-1.0) mg/dL AST (5-31) U/L ALT (0-31) U/L Alkaline Phosphatase (39-117) U/L Troponin I High Sens 45.9 H (<3.5-17.0) ng/L Total Protein (6.5-8.0) g/dL Albumin (3.5-5.0) g/dL Lipase (8-78) U/L Beta HCG, Quant < 2 mIU/mL Urine Color Yellow Urine Appearance Clear Urine pH 7.5 (5.0-9.0) Ur Specific [place] >= 1.030 H (1.005-1.025) Urine Protein Trace (Neg-Trace) mg/dL Urine Glucose (UA) >=1000 H (Negative) mg/dL Urine Ketones Negative (Negative) mg/dL Urine Blood Negative (Negative) Urine Nitrite Negative (Negative) Ur Leukocyte Esterase Negative (Negative) Urine RBC 0-2 (0-2) /HPF Urine WBC 0-5 (0-5) /HPF Ur Squamous Epith Cells 0-2 (0-2) /HPF Urine Bacteria None Seen (None Seen) Hyaline Casts 0-2 (0-2) /LPF Stool Occult Blood (NEGATIVE) 10/21/22 Range/Units 21:39 WBC (4.8-10.8) X10*3/uL RBC (4.20-5.50) X10*6/uL Hgb (12.0-16.0) g/dl Hct (37.0-47.0) % MCV (80.0-98.0) fL MCH (27.0-33.0) pg MCHC (31.0-35.0) g/dl RDW (11.0-16.0) % Plt Count (160-400) X10*3/uL MPV (9.4-12.3) fL Immature Gran % (Auto) (0.0-0.4) % Neut % (Auto) (45-73) % Lymph % (Auto) (20-40) % [place] % (Auto) (2-11) % Eos % (Auto) (0-4) % Baso % (Auto) (0-2) % Lymph # (Auto) (1.2-4.9) X10*3/uL [place] # (Auto) (0.1-1.2) X10*3/uL Eos # (Auto) (0.0-0.4) X10*3/uL Baso # (Auto) (0.0-0.2) X10*3/uL Abs Immat Gran (auto) (0.00-0.03) X10*3/uL Absolute Neuts (auto) (2.0-8.3) x10*3/uL Absolute Nucleated RBC (0.0-0.012) X10*3/uL Nucleated RBC % (auto) (0.0-0.2) /100WBC Smear Tech's Comments PT (11.1-13.3) SEC INR (0.9-1.1) Sodium (135-145) mmol/L Potassium (3.3-5.1) mmol/L Chloride (96-108) mmol/L Carbon Dioxide (22-29) mmol/L Anion Gap (12-20) BUN (9-16) mg/dL Creatinine (0.5-1.4) mg/dL Estim Creat Clear Calc Estimated GFR Random Glucose (60-115) mg/dL Calcium (8.4-10.2) mg/dL Total Bilirubin (0.0-1.0) mg/dL AST (5-31) U/L ALT (0-31) U/L Alkaline Phosphatase (39-117) U/L Troponin I High Sens (<3.5-17.0) ng/L Total Protein (6.5-8.0) g/dL Albumin (3.5-5.0) g/dL Lipase (8-78) U/L Beta HCG, Quant mIU/mL Urine Color Urine Appearance Urine pH (5.0-9.0) Ur Specific [place] (1.005-1.025) Urine Protein (Neg-Trace) mg/dL Urine Glucose (UA) (Negative) mg/dL Urine Ketones (Negative) mg/dL Urine Blood (Negative) Urine Nitrite (Negative) Ur Leukocyte Esterase (Negative) Urine RBC (0-2) /HPF Urine WBC (0-5) /HPF Ur Squamous Epith Cells (0-2) /HPF Urine Bacteria (None Seen) Hyaline Casts (0-2) /LPF Stool Occult Blood NEGATIVE (NEGATIVE) Independent Interpretation I performed an independent interpretation of an: CT Scan Radiology Impression Discussion of test interpretation with radiology: I have reviewed the radiologist's reading. Radiologist Impression: FINDINGS: LUNG BASES: The visualized lung bases are unremarkable.? LIVER, GALLBLADDER, AND BILIARY TREE: Abnormal appearing liver. There are large areas of low attenuation left lobe and at least one small area of abnormal at low attenuation in the right lobe.. Status post cholecystectomy? PANCREAS: Unremarkable.? SPLEEN: Unremarkable.? ADRENAL GLANDS: Unremarkable.? KIDNEYS AND URETERS: Nonobstructing calculus mid to lower pole left kidney.? BLADDER: Unremarkable.? GASTROINTESTINAL TRACT: The bowel pattern is felt to be nonobstructing. There is no free fluid. Some possible mild thickening of mucosa at the level the GE junction in the distal esophagus ABDOMINAL WALL: Umbilical herniation of omental fat is noted also seen previously. Mild associated soft tissue stranding also seen previously LYMPH NODES: There is no bulky adenopathy here. A few small mildly prominent nodes in the gali similar to previous. Some nonpathologically enlarged nodes in the gastric hepatic window and a few small nonpathologically enlarged nodes the GE junction.? VASCULAR: Unremarkable. PELVIC VISCERA: Unremarkable.? OSSEOUS STRUCTURES: Unremarkable.? CT/CT abdomen pelvis wo IV con IMPRESSION: As described above heterogeneous attenuation with several large areas in the left lobe of liver. This could possibly represent fatty change in the liver but underlying lesions could not be excluded. Liver is felt to be enlarged. Possible mild corrugation of the liver contour. Cirrhosis cannot be excluded. Recommend MRI of the abdomen to further evaluate pre and postcontrast. ? Otherwise findings are as described above. ? Some possible mild thickening at the level of the distal esophagus junction. Direct visualization would be recommended. ? Fleischner guidelines were followed. Critical Care Time Critical Care Time Critical Care Time: Yes Total Critical Care Time: 30 Attestation: I have personally provided critical care time. Time includes review of lab data, radiology results, discussion with consultants, and monitoring for potential decompensation. Intervention performed as documented. Discharge Plan Discharge Clinical Impression: Abdominal pain Patient Disposition: Home, Self-Care Instructions: Abdominal Pain (ED) Additional Instructions: Please follow-up with your primary care physician tomorrow. You will likely need an upper endoscopy and also an MRI of your liver. If you have any worsening or new symptoms, please return to the emergency room or call 911 Prescriptions: New omeprazole 20 mg capsule,delayed release(DR/EC) 20 mg PO DAILY Qty: 20 0RF No Action (DME) nebulizers Misc See Rx Instructions .Route Qty: 1 0RF Rx Instructions: to use every 4 hours as needed for wheezing aspirin 81 mg tablet,delayed release (DR/EC) 81 mg PO DAILY Qty: 81 8RF metformin 500 mg tablet 500 mg PO BID 30 Days Qty: 60 7RF fluconazole [Diflucan] 150 mg tablet 150 mg PO Q3D Qty: 2 2RF Rx Instructions: may repeat second dose 72 hrs after first dose if symptoms persist (DME) blood pressure monitor Kit See Rx Instructions .Route Qty: 1 0RF Rx Instructions: As directed (DME) blood pressure test kit-large [[employer] e-[employer] Versa Arm BP Monitor] Kit See Rx Instructions .Route Qty: 1 0RF Rx Instructions: As directed hydrochlorothiazide 25 mg tablet 25 mg PO DAILY Qty: 90 8RF (DME) FreeStyle Lite Strips Strip See Rx Instructions .ROUTE .MEDSUPPLY Qty: 100 7RF Rx Instructions: BID As directed naproxen 500 mg tablet 500 mg PO BID PRN (Reason: for pain) Qty: 60 0RF amlodipine 10 mg tablet 10 mg PO DAILY Qty: 90 2RF (DME) blood-glucose meter [FreeStyle [place]] Kit See Rx Instructions .ROUTE .MEDSUPPLY Qty: 1 0RF Rx Instructions: As directed valacyclovir 500 mg tablet 1 tab PO DAILY tamsulosin [Flomax] 0.4 mg capsule 0.4 mg PO DAILY 14 Days Qty: 14 0RF ibuprofen 600 mg tablet 600 mg PO Q6H PRN (Reason: pain) Qty: 30 0RF albuterol sulfate 90 mcg/actuation aero powdr breath act w/sensor 2 inh inhalation Q4-6H PRN (Reason: shortness of breath or wheezing) Qty: 1 0RF Rx Instructions: May dispense medication equivalent accepted by patient's insurance albuterol sulfate 0.63 mg/3 mL solution for nebulization 0.63 mg inhalation Q4-6H PRN (Reason: shortness of breath or wheezing) Qty: 90 0RF Rx Instructions: May dispense medication equivalent accepted by patient's insurance prednisone 20 mg tablet 40 mg PO DAILY 5 Days Qty: 10 0RF morphine 15 mg tablet 15 mg PO TID PRN (Reason: pain) Qty: 8 0RF Rx Instructions: partial fill okay; Partial Fill upon patient request. lisinopril 40 mg tablet 40 mg PO DAILY Qty: 30 0RF labetalol 100 mg tablet 100 mg PO BID Qty: 60 8RF Protocol: Hold for SBP/HR < HOLD for SBP < : 90 HOLD for HR < : 60 albuterol sulfate 2.5 mg /3 mL (0.083 %) solution for nebulization inhalation Q4H PRN (Reason: muscle spasm) (DME) lancets [FreeStyle Lancets] 28 gauge misc See Rx Instructions .ROUTE .MEDSUPPLY Qty: 100 7RF Rx Instructions: BID As directed cyclobenzaprine 10 mg tablet 10 mg PO TID PRN (Reason: muscle spasm) Qty: 30 2RF albuterol sulfate 90 mcg/actuation HFA aerosol inhaler 2 inh inhalation QID PRN (Reason: shortness of breath or wheezing) Qty: 8.5 8RF gabapentin 300 mg capsule 300 mg PO BEDTIME 14 Days Qty: 14 0RF metformin 1,000 mg tablet 1,000 mg PO BID Qty: 60 8RF fluconazole [Diflucan] 100 mg tablet 100 mg PO DAILY Qty: 3 0RF cholecalciferol (vitamin D3) 125 mcg (5,000 unit) capsule 125 mcg PO DAILY Qty: 30 2RF omeprazole 40 mg capsule,delayed release(DR/EC) 40 mg PO DAILY Qty: 14 0RF lisinopril 40 mg tablet 40 mg PO DAILY Qty: 90 3RF Interventions: ED Discharge Assessment Last Done: 10/21/22 23:07 Discharge Date/Time: 10/21/22 23:07
[2022-10-21 15:06] VITALS: BP 198/107; PULSE 97; RESP 16; TEMP 36.1; O2SAT 98; BMI 34.7
[2022-10-21 15:42] LABS: Basophils Absolute Auto 0.1 X10*3/uL (0.0-0.2); Basophils Percent Auto 0.4 % (0-2); Imm Gran Pct Auto 0.6 % (0.0-0.4); MANUAL DIFF FLAG SCAN; Mean Corpuscular HGB Conc 31.1 g/dl (31.0-35.0); Mean Corpuscular Hemoglobin 22.6 pg (27.0-33.0); Mean Corpuscular Volume 72.8 fL (80.0-98.0); SCAN SMEAR FLAG 1
[2022-10-21 15:44] LABS: Eosinophils Absolute Auto 0.4 X10*3/uL (0.0-0.4); Eosinophils Percent Auto 2.9 % (0-4); Hematocrit 38.6 % (37.0-47.0); Imm Gran Abs Auto 0.08 X10*3/uL (0.00-0.03); Lymphocytes Absolute Auto 2.7 X10*3/uL (1.2-4.9); Mean Platelet Volume 11.2 fL (9.4-12.3); Monocytes Absolute Auto 0.7 X10*3/uL (0.1-1.2); Monocytes Percent Auto 5.3 % (2-11); Neutrophils Absolute Auto 9.5 x10*3/uL (2.0-8.3); Neutrophils Percent Auto 70.8 % (45-73); Platelet Count 261 X10*3/uL (160-400); Red Cell Distribution Width 17.3 % (11.0-16.0); White Blood Count 13.4 X10*3/uL (4.8-10.8)
[2022-10-21 16:01] LABS: Alanine Aminotransferase 16 U/L (0-31); Albumin Level 3.5 g/dL (3.5-5.0); Alkaline Phosphatase 93 U/L (39-117); Anion Gap 16 (12-20); Aspartate Amino Transferase 16 U/L (5-31); Bilirubin Total 0.4 mg/dL (0.0-1.0); Blood Urea Nitrogen 9 mg/dL (9-16); Calcium 8.8 mg/dL (8.4-10.2); Carbon Dioxide 23 mmol/L (22-29); Chloride 100 mmol/L (96-108); Creatinine Clr Calc Pharmacy 83.9; Estimated Glomerular Filt Rate > 60; Glucose Random 344 mg/dL (60-115); Lipase 19 U/L (8-78); Potassium 3.5 mmol/L (3.3-5.1); Sodium 135 mmol/L (135-145); Total Protein 7.1 g/dL (6.5-8.0)
[2022-10-21 16:06] LABS: Prothrombin Time 12.4 SEC (11.1-13.3)
[2022-10-21 16:08] LABS: Troponin-I High Sensitivity 45.9 ng/L (<3.5-17.0)
[2022-10-21 16:12] LABS: HCG Quantitative < 2 mIU/mL
[2022-10-21 16:16] LABS: PLT ABN DIST 1
[2022-10-21 16:17] LABS: SLIDE REVIEW VERIFIED
[2022-10-21 18:52] VITALS: BP 214/113; PULSE 88; RESP 18; TEMP 36.9; O2SAT 99
--- NOTE | 2022-10-21 20:00 | PC.NURSE ---
this rn assumed care of pt @ 1900. 20g iv placed in L Ac. pt tolerated well. dr cabrera made aware of pt status. pt calm and cooperative. able to ambulate to bathroom
[2022-10-21 20:01] VITALS: BP 206/106; PULSE 93
[2022-10-21] MEDS: Labetalol HCL 100 MG TABLET PO (20:02)
[2022-10-21 20:18] LABS: Appearance Urine Clear; Color Urine Yellow; Glucose Urine UA >=1000 mg/dL (Negative); Leukocyte Esterase Urine Negative (Negative); Nitrite Urine Negative (Negative); PH 7.5 (5.0-9.0); Specific Gravity - Urine >= 1.030 (1.005-1.025); UMIC TRIGGER UACC YES; Urine Blood Negative (Negative); Urine Ketones Negative (Negative); Urine Protein Trace mg/dL (Neg-Trace)
[2022-10-21 20:36] LABS: Bacteria Urine None Seen (None Seen); Hyaline Casts Urine 0-2 /LPF (0-2); RBC Urine 0-2 /HPF (0-2); Squamous Epithelial Cell Urine 0-2 /HPF (0-2); WBC Urine 0-5 /HPF (0-5)
[2022-10-21 20:57] VITALS: BP 172/81; PULSE 93; RESP 17; TEMP 37.7; O2SAT 100
[2022-10-21 21:48] LABS: OBS Int Ctl Valid YES; OBS1 NEGATIVE (NEGATIVE)
[2022-10-21 22:56] VITALS: BP 187/103; PULSE 86; RESP 20; TEMP 37.2; O2SAT 98
--- NOTE | 2022-10-21 23:05 | PC.NURSE ---
pt ambulatory at discharge. iv removed. dr cabrera made aware of high bp at discharge. no new orders. pt provided with discharge packet. pt verbalized understanding of discharge plan
== END 2022-10-21 23:07 | disposition home or self-care (01) ==
PROVIDERS: Registered Nurse Emergency; Emergency Provider Emergency Medicine; PCP Internal Medicine
DX: R07.89 Other chest pain (principal); R10.13 Epigastric pain; R07.81 Pleurodynia; Z79.899 Other long term (current) drug therapy
CPT/HCPCS: 36415; 74176; 80053; 81001; 82272; 83690; 84484; 84702; 85025; 85610; 93005; 99284; 99285

== ENCOUNTER → 2022-10-21 14:54 | Outpatient (BNV) | payer OTHER, SELFPAY | PROVIDERS: Emergency Provider Emergency Medicine; PCP Internal Medicine; Visit Provider Internal Medicine Cardiovascular Disease | DX: R10.9 Unspecified abdominal pain (principal) | CPT/HCPCS: 93010 ==

== ENCOUNTER 2022-10-26 09:52 | Outpatient (AMB) | payer OTHER, SELFPAY ==
--- NOTE | 2022-10-26 09:52 | AM.OFFVISNUR ---
Intake Intake Visit Reasons: PPD Plant Allergies Iodinated Contrast Media Allergy (Intermediate, Verified 10/21/22 15:06) Anaphylaxis latex [Latex] Allergy (Unknown, Verified 10/21/22 15:06) RASH Office Meds tuberculin PPD Performing Provider: Derrek Hollingsworth MD Administered by: Naima Cagle RN on 10/26/22 10:00 Dose Route Admin Location Lot Number Expiration Date [employer] 0.1 mL intradermal right forearm [id number] 09/01/24 [id number] [employer] Coding Diagnoses Assessment & Plan Assessment & Plan Orders: Orders AMB PPD Planted Today Z11.1 - Encounter for screening for respiratory tuberculosis
== END 2022-10-26 10:00 | disposition home or self-care (01) ==
PROVIDERS: PCP Internal Medicine; Visit Provider Internal Medicine
DX: Z11.1 Encounter for screening for respiratory tuberculosis (principal)
CPT/HCPCS: 86580

== ENCOUNTER 2022-10-28 09:55 | Outpatient (AMB) | payer OTHER, SELFPAY ==
--- NOTE | 2022-10-28 10:13 | MHC.PC.OV ---
Vital Signs 10/28/22 10:15 Height 5 ft 2 in Weight 188 lb 2 oz BMI 34.4 BP 140/70 H Blood Pressure Location Lt brachial Position Sitting Pulse 70 Pulse Source Pulse Oximeter Pulse Oximetry (%) 98 Oxygen Delivery Method Room Air Intake Visit Reasons: [facility], 10/21 Intake Note: Patient is here to follow-up after a visit the emergency department at [facility] [place]. Requesting referral for GI and Liver Dr Interactive Marketing Strategist Required: No College Teacher: Not Required per policy Accompanied by: Self / Same As Patient Allergies Iodinated Contrast Media Allergy (Intermediate, Verified 10/28/22 10:14) Anaphylaxis latex [Latex] Allergy (Unknown, Verified 10/28/22 10:14) RASH Tobacco use date assessed: 10/28/22 Dental Screening Dental Screen Date: 10/28/22 Did you have a dental visit in the last 12 months?: Yes Did you have a dental problem in the last 6 months where you did not have access to dental care?: No Was dental information given to patient?: Patient has dentist HPI [facility] [place], chest & abdominal pain, 10/21 HPI Details went to the er with abd pain; told she should see gi but a referral is already in place [facility] Medical History Anemia Asthma Bilateral hand numbness Bilateral hand pain Diabetes mellitus DJD (degenerative joint disease) GERD (gastroesophageal reflux disease) HSV (herpes simplex virus) infection HTN (hypertension) Obesity Smoking TIA (transient ischemic attack) Surgical History H/O cardiac catheterization Hx of appendectomy Hx of section Hx of cholecystectomy Hx of tubal ligation Family History Mother Heart disease Diabetes Hypertension Hyperlipidemia Fibromyalgia Father No problems noted. Brother No problems noted. Brother No problems noted. Brother No problems noted. Sister Deep vein thrombosis Son No problems noted. Son No problems noted. Daughter Hypertension Daughter No problems noted. Maternal Aunt History of breast cancer Social History Household Members: Children Housing: Apartment Do you presently have visiting nurse or other home services: No Alcohol intake: current Alcohol intake frequency: holidays/special occasions only Patient Tobacco Use Status: Former Tobacco user Tobacco use type: Cigarette Cigarettes Per Day: 3 e-Cigarette/Vaping Use: Never Used Second Hand Smoke Exposure: Yes service: No Current occupational status: employed Cognitive needs: No Hearing needs: No Vision needs: Yes (glasses) Female Reproductive History Menstrual Age of Menarche: 12 Questionnaire PHQ-9 Over the last 2 weeks, how often have you been bothered by any of the following problems? Depression Screening Interpretation: Negative Source: Developed by Drs. Willian Nassar, Monique Clark, Aaron Ortega and colleagues, with an educational walter from [employer]. Thrive Questionnaire Date Thrive assessed: 07/04/22 Currently or been in a relationship where the following occur: no concerns reported VIKRAM-7 AMB Questionnaire VIKRAM-7 Date VIKRAM - 7 assessed: 07/04/22 Source: Developed by Drs. Willian Nassar, Monique Clark, Aaron Ortega and colleagues, with an educational walter from [employer]. Review of Systems Const Denies chills, Denies headache(s) and Denies weight loss ENT Denies headache(s) Card Denies chest pain, Denies syncope, Denies irregular heart rhythm and Denies dyspnea Resp Denies chest congestion, Denies cough and Denies dyspnea GI Denies change in stool character, Denies nausea and Denies vomiting Musc Denies deformity and Denies joint swelling Neuro Denies syncope and Denies headache(s) Physical exam (Primary Care) Vital Signs: Last Vital Signs Pulse 70 10/28/22 10:15 BP 140/70 H 10/28/22 10:15 Pulse Ox 98 10/28/22 10:15 Oxygen Delivery Method Room Air 10/28/22 10:15 BMI result Body Mass Index 34.4 Tobacco/Smoking Status: Tobacco use Status Tobacco use date assessed 10/28/22 10/28/22 10:24 Patient Tobacco Use Status Former Tobacco user 10/28/22 10:24 Tobacco use type Cigarette 10/28/22 10:24 e-Cigarette/Vaping Use Never Used 10/28/22 10:24 Depression Screening Interpretation: Negative Thrive Assessment: Date of Thrive Assessment Date Thrive assessed 07/04/22 10/28/22 10:24 Currently or been in a relationship where the following occur: no concerns reported Const General: cooperative, comfortable and no acute distress Chest Chest palpation & inspection: normal inspection of the chest Resp Effort & Inspection: normal respiratory effort Auscultation: clear to auscultation bilaterally Percussion: percussion normal Cardio Jugular venous distension: no JVD Rate: regular rate Rhythm: regular rhythm GI Inspection: Yes normal to inspection Results AMB PPD Test AMB PPD Test Negative Last Edit by Devora Sneed RN on 10/28/22 10:03 0 mm Assessment and Plan Assessment & Plan (1) Abdominal pain: Code(s): R10.9 - Unspecified abdominal pain Plan: referral in place Medications: Refilled albuterol sulfate 90 mcg/actuation 2 inhalations inhalation QID PRN 8.5 grams 8RF shortness of breath or wheezing albuterol sulfate 90 mcg/actuation May dispense medication equivalent accepted by patient's insurance 2 inhalations inhalation Q4-6H PRN 1 ea 0RF shortness of breath or wheezing albuterol sulfate May dispense medication equivalent accepted by patient's insurance 0.63 mg (3 mL) inhalation Q4-6H PRN 90 mL 0RF shortness of breath or wheezing cholecalciferol (vitamin D3) 125 mcg PO DAILY 30 caps 2RF E55.9 - Vitamin D deficiency, unspecified cyclobenzaprine 10 mg PO TID PRN 30 tabs 2RF muscle spasm gabapentin 300 mg PO BEDTIME 14 caps 0RF 14 days R20.2 - Paresthesia of skin ibuprofen 600 mg PO Q6H PRN 30 tabs 0RF pain labetalol 100 mg See Protocol PO BID 60 tabs 8RF lancets (FreeStyle Lancets) BID As directed 100 ea 7RF E11.9 - Type 2 diabetes mellitus without complications lisinopril 40 mg PO DAILY 30 tabs 0RF naproxen 500 mg PO BID PRN 60 tabs 0RF for pain omeprazole 20 mg PO DAILY 20 caps 0RF prednisone 40 mg (2 x 20 mg) PO DAILY 10 tabs 0RF 5 days Coding Level of Care Code Est Pt Level 3 (19630) Diagnoses Abdominal pain R10.9
[2022-10-28 10:15] VITALS: BP 140/70; PULSE 70; O2SAT 98; BMI 34.4
== END 2022-10-28 11:49 | disposition home or self-care (01) ==
PROVIDERS: PCP Internal Medicine; Visit Provider Internal Medicine
DX: R10.9 Unspecified abdominal pain (principal)
CPT/HCPCS: 99213

== ENCOUNTER 2022-11-22 09:17 | Outpatient (AMB) | payer OTHER, SELFPAY ==
--- NOTE | 2022-11-22 09:25 | MHC.OFFVIS ---
Intake Vital Signs 11/22/22 09:26 Height 5 ft 2 in Weight 188 lb 11.451 oz BMI 34.5 BP 170/120 H Blood Pressure Location Lt brachial Position Sitting Pulse 87 Intake Visit Reasons: HS pt/2021/ chest pain Intake Note: follow up Mountain Services Manager Required: No Accompanied by: Self / Same As Patient Allergies Iodinated Contrast Media Allergy (Intermediate, Verified 11/22/22 09:28) Anaphylaxis latex [Latex] Allergy (Unknown, Verified 11/22/22 09:28) RASH Medication List - Last Reconciled 11/22/22 by Dieter Owen MD albuterol sulfate 0.63 mg (3 mL) inhalation Q4-6H PRN albuterol sulfate mg inhalation Q4H PRN albuterol sulfate 90 mcg/actuation 2 inhalations inhalation QID PRN albuterol sulfate 90 mcg/actuation 2 inhalations inhalation Q4-6H PRN amlodipine 10 mg PO DAILY aspirin 81 mg PO DAILY blood pressure monitor As directed blood pressure test kit-large ([employer] Versa Arm BP Monitor kit) As directed blood sugar diagnostic (FreeStyle Lite Strips) BID As directed blood-glucose meter (FreeStyle [place] kit) As directed cyclobenzaprine 10 mg PO TID PRN gabapentin 300 mg PO BEDTIME 14 days hydrochlorothiazide 25 mg PO DAILY ibuprofen 600 mg PO Q6H PRN labetalol 100 mg See Protocol PO BID lancets (FreeStyle Lancets) BID As directed lisinopril 40 mg PO DAILY metformin 1,000 mg PO BID naproxen 500 mg PO BID PRN nebulizers to use every 4 hours as needed for wheezing omeprazole 20 mg PO DAILY prednisone 40 mg (2 x 20 mg) PO DAILY 5 days tamsulosin (Flomax) 0.4 mg PO DAILY 14 days valacyclovir 1 tab PO DAILY HPI HPI Comments History of Present Illness Details Amy returns for follow-up. Not regular in appointments. In the past, has had admission for hypertensive urgency and elevated troponins. However, cardiac catheterization shows normal coronary arteries. Still gets off and on chest pains but nothing in any pattern. Continues to have a high blood pressure. Today's blood pressure is also high but she states she did take her meds today. She just states she was busy and hence did not take them. Still element of noncompliance. According to her, she misses medications on other occasions 2. [facility] Medical History Anemia Asthma Bilateral hand numbness Bilateral hand pain Diabetes mellitus DJD (degenerative joint disease) GERD (gastroesophageal reflux disease) HSV (herpes simplex virus) infection HTN (hypertension) Obesity Smoking TIA (transient ischemic attack) Surgical History H/O cardiac catheterization Hx of appendectomy Hx of section Hx of cholecystectomy Hx of tubal ligation Family History Mother Heart disease Diabetes Hypertension Hyperlipidemia Fibromyalgia Father No problems noted. Brother No problems noted. Brother No problems noted. Brother No problems noted. Sister Deep vein thrombosis Son No problems noted. Son No problems noted. Daughter Hypertension Daughter No problems noted. Maternal Aunt History of breast cancer Social History Household Members: Children Housing: Apartment Do you presently have visiting nurse or other home services: No Alcohol intake: current Alcohol intake frequency: holidays/special occasions only Patient Tobacco Use Status: Former Tobacco user Tobacco use type: Cigarette Cigarettes Per Day: 3 e-Cigarette/Vaping Use: Never Used Second Hand Smoke Exposure: Yes service: No Current occupational status: employed Cognitive needs: No Hearing needs: No Vision needs: Yes (glasses) Female Reproductive History Menstrual Age of Menarche: 12 Review of Systems Const Denies weakness ENT Denies dizziness Card Denies chest pain, Denies chest pain with activity, Denies syncope, Denies rapid heart rate, Denies pedal edema, Denies edema, Denies leg edema, Denies lightheadedness, Denies palpitations, Denies dyspnea, Denies dyspnea on exertion and Denies orthopnea Resp Denies cough, Denies dyspnea and Denies dyspnea on exertion GI Denies hematochezia and Denies change in stool character Musc Denies abnormal gait, Denies muscle cramps, Denies muscle weakness, Denies numbness, Denies radiating pain into limb and Denies tingling Neuro Denies abnormal gait, Denies dizziness, Denies syncope, Denies numbness, Denies tingling and Denies weakness Endo Denies palpitations Physical Exam Vital Signs: Last Vital Signs Pulse 87 11/22/22 09:26 BP 170/120 H 11/22/22 09:26 BMI result Body Mass Index 34.5 Const General: comfortable and no acute distress Orientation/consciousness: patient oriented x3 HEENT Other: Unremarkable Head: Yes normal to inspection Neck Neck: Yes normal visual inspection Chest Chest palpation & inspection: normal inspection of the chest Resp Auscultation: clear to auscultation bilaterally Cardio Palpation: normal PMI Heart sounds: S1 normal heart sound present, S2 normal heart sound present, no gallops, no murmurs and no rubs GI Palpation (GI): Soft to palpation Back/Spine/Pelvis Other: unremarkable Skin General skin exam: no rashes or lesions noted Neuro General: patient oriented x3 Extrem General: Yes normal to inspection Psych Mental Status: mental status grossly normal Assessment & Plan Assessment & Plan (1) Uncontrolled hypertension: Code(s): I10 - Essential (primary) hypertension (2) LVH (left ventricular hypertrophy): Code(s): I51.7 - Cardiomegaly (3) Diastolic dysfunction: Code(s): I51.89 - Other ill-defined heart diseases Plan Cardiac studies reviewed. Echocardiogram 2020 with LVEF of 55-60%, moderate LVH, moderate diastolic dysfunction with elevated filling pressures and mild mitral regurgitation. Cardiac catheterization from 2021 shows normal coronary arteries. Overall, poorly controlled hypertension mainly due to noncompliance. Even today she did take her medications. We discussed about the importance of taking blood pressure medications regularly and consequences from not taking them including issues like stroke. She understands. It seems she does have a nurse navigator for home blood pressure and we will ensure this is being followed up regularly. Will also send another home blood pressure cuff. For med regimen, she is on amlodipine, hydrochlorothiazide, lisinopril, labetalol. No changes with these today unless compliance established and blood pressure is still high. Will also get in lab sleep study to look for underlying sleep apnea. Follow-up will be scheduled. Orders: Orders RT PSG in-lab sleep study Today G47.33 - Obstructive sleep apnea (adult) (pediatric) Coding Level of Care Code Est Pt Level 4 (86452) Diagnoses Uncontrolled hypertension I10 LVH (left ventricular hypertrophy) I51.7 Diastolic dysfunction I51.89
[2022-11-22 09:26] VITALS: BP 170/120; PULSE 87; BMI 34.5
== END 2022-11-22 09:48 | disposition home or self-care (01) ==
PROVIDERS: PCP Internal Medicine; Referring Provider Internal Medicine; Visit Provider Internal Medicine
DX: I10 Essential (primary) hypertension (principal); I51.7 Cardiomegaly; I51.89 Other ill-defined heart diseases
CPT/HCPCS: 99214

== ENCOUNTER → 2022-11-22 09:17 | Outpatient (BNVA) | payer OTHER, SELFPAY | PROVIDERS: PCP Internal Medicine; Referring Provider Internal Medicine; Visit Provider Internal Medicine | DX: I51.7 Cardiomegaly (principal); I51.89 Other ill-defined heart diseases; I10 Essential (primary) hypertension; Z79.899 Other long term (current) drug therapy | CPT/HCPCS: 99212 ==

== ENCOUNTER 2022-11-23 11:20 | Outpatient (REF) | payer OTHER, SELFPAY ==
--- NOTE | ~2022-11-23 | MR_ITS ---
EXAMINATION: INCOMPLETE MR LUMBAR SPINE WITHOUT CONTRAST CLINICAL INFORMATION: Low back pain. Bilateral leg pain. COMPARISON: X-ray of the lumbar spine dated 11/18/2021. TECHNIQUE: MRI of the lumbar spine was obtained using routine sequences without contrast. Axial T1-weighted imaging not obtained. Patient became claustrophobic and refused to complete the study. Slightly limited exam with motion artifacts. Axial T2-weighted imaging is incomplete and limited as well. FINDINGS: VERTEBRAL BODIES AND PARASPINAL STRUCTURES: The marrow signal is within normal limits. There are no compression fractures. Reduced intradiscal signal evident at the L4-L5 level with a diffuse disc bulge and posterior subluxation. The imaged paraspinal soft tissues are unremarkable. There is mild inferior endplate edema lateralized to the right side at the L5 level. CONUS MEDULLARIS AND CAUDA EQUINE: The distal cord, conus tip, and cauda equina nerve roots are normal. SPINAL LEVELS: L1-L2 and L2-L3: No disc pathology, central canal stenosis, or foraminal narrowing. L3-L4: Mild disc bulge without central canal stenosis. Mild hypertrophic facet arthropathy without foraminal encroachment. L4-L5: Mild loss of disc height and diffuse disc bulge with a shallow central disc protrusion mildly impressing upon the L5 nerve roots in the subarticular zones. Hypertrophic facet degeneration without central canal stenosis. Bulging disc results in mild bilateral foraminal encroachment. L5-S1: Focal central disc protrusion and underlying annular fissure with facet arthropathy. Mild left foraminal narrowing. Moderate right foraminal encroachment from osseous spurring. MR/MR lumbar spine wo con IMPRESSION: 1. Incomplete and limited study. 2. Mild retrosubluxation and diffuse disc bulge with endplate spurring and facet arthropathy at L4-L5. Shallow central disc protrusion. Mild bilateral foraminal narrowing. 3. Small central disc protrusion at the L5-S1 level with facet arthropathy resulting in moderate right foraminal encroachment.
== END 2022-11-23 11:21 | disposition home or self-care (01) ==
LOC: HO.MRI 11:20
PROVIDERS: PCP Internal Medicine; Visit Provider Physician Assistant
DX: M54.50 Low back pain, unspecified (principal); G45.9 Transient cerebral ischemic attack, unspecified
CPT/HCPCS: 72148

== ENCOUNTER 2022-11-26 12:12 | Emergency (ER) | payer OTHER, SELFPAY ==
--- NOTE | ~2022-11-26 | CT_ITS ---
EXAMINATION: CT HEAD WITHOUT CONTRAST CLINICAL INFORMATION: Headache COMPARISON: CT head from 05/16/2022 TECHNIQUE: Contiguous axial imaging was performed from the skull base to vertex without intravenous administration of contrast. This CT examination was performed using dose optimization techniques as appropriate, variously including the following: *Automated exposure control *Adjustment of mA and/or kV according to patient size (this includes techniques or standardized protocols for targeted exams where dose is matched to indication/reason for exam; i.e. extremities or head) *Use of iterative reconstruction technique DLP: 653 mGy-cm FINDINGS: There is no evidence of acute intracranial hemorrhage or territorial infarction. No abnormal mass effect or midline shift is seen. Bynum to white matter differentiation is well preserved. No extra-axial fluid collections are identified. The ventricles are normal in size. There is no abnormal attenuation within the brain parenchyma. The osseous structures and soft tissues are normal. Very mild mucoperiosteal thickening of the bilateral maxillary sinuses. Mucoperiosteal thickening of the bilateral ethmoid sinuses. The mastoid air cells and visualized portions of the paranasal sinuses are well aerated. CT/CT head/brain wo IV con IMPRESSION: 1. No acute intracranial pathology. 2. Very mild mucoperiosteal thickening of the bilateral maxillary sinuses. Mucoperiosteal thickening of the bilateral ethmoid sinuses.
--- NOTE | ~2022-11-26 | XR_ITS ---
EXAMINATION: XR CHEST CLINICAL INFORMATION: Chest pain COMPARISON: 08/21/2022 TECHNIQUE: Frontal view of the chest was obtained. FINDINGS: Lungs are clear. No consolidation, pneumothorax, or pleural effusion. Cardiac and mediastinal contours are normal. Pulmonary vasculature is unremarkable. Osseous structures are unremarkable. XR/XR chest 1V IMPRESSION: No acute cardiopulmonary findings
--- NOTE | 2022-11-26 12:13 | ECG_ITS ---
Test Reason : CHEST PAIN Blood Pressure : / mmHG Vent. Rate : 099 BPM Atrial Rate : 099 BPM P-R Int : 162 ms QRS Dur : 088 ms QT Int : 382 ms P-R-T Axes : 054 -28 138 degrees QTc Int : 490 ms Normal sinus rhythm Moderate voltage criteria for LVH, may be normal variant ( R in aVL , [place] product ) ST & T wave abnormality, consider lateral ischemia Prolonged QT Abnormal ECG When compared with ECG of 21-OCT-2022 15:02, No significant change was found Referred By: Eri Fine Electronically Signed By:HUMA FERMIN
[2022-11-26 12:34] VITALS: BP 229/128; PULSE 97; RESP 14; TEMP 36.8; O2SAT 98; BMI 31.4
--- NOTE | 2022-11-26 12:38 | ED_ITS ---
HPI - General Adult General Chief complaint: General Medical Stated complaint: chest pain Time Seen by Provider: 11/26/22 12:31 Source: patient Mode of arrival: ambulatory Limitations: no limitations History of Present Illness HPI narrative: 42-year-old female came in for evaluation of right-sided chest pain x2 days. 42-year-old female with history of hypertension controlled with p.o. metoprolol at home, patient work as [employer] with recent strenuous activity and heavy lifting at work came in with right-sided neck pain radiates to the right shoulder and the front of the right chest, patient with this feels head pressure, symptoms started 2 days ago, decline SOB, pain overall is worsening with movement of the neck or right shoulder. Related Data Home Medications Medication Instructions Recorded Confirmed valacyclovir 500 mg tablet 1 tab PO DAILY 07/21/21 11/22/22 albuterol sulfate 2.5 mg/3 mL mg inhalation Q4H PRN muscle spasm 11/30/21 11/22/22 (0.083 %) solution for nebulization Previous Rx's Medication Instructions Recorded blood-glucose meter (FreeStyle #1 ea 09/05/20 [place] kit) nebulizers #1 ea 06/17/21 aspirin 81 mg tablet,delayed 81 mg PO DAILY #81 tabs 02/16/22 release tamsulosin 0.4 mg capsule (Flomax) 0.4 mg PO DAILY 14 days #14 caps 04/03/22 hydrochlorothiazide 25 mg tablet 25 mg PO DAILY #90 tabs 08/04/22 metformin 1,000 mg tablet 1,000 mg PO BID #60 tabs 08/18/22 blood sugar diagnostic (FreeStyle #100 ea 09/12/22 Lite Strips) amlodipine 10 mg tablet 10 mg PO DAILY #90 tabs 10/05/22 albuterol sulfate 0.63 mg/3 mL 0.63 mg (3 mL) inhalation Q4-6H 10/28/22 solution for nebulization PRN shortness of breath or wheezing #90 mL albuterol sulfate 90 mcg/actuation 2 inh inhalation Q4-6H PRN 10/28/22 breath activated powder shortness of breath or wheezing #1 inhaler,sensor ea cyclobenzaprine 10 mg tablet 10 mg PO TID PRN muscle spasm #30 10/28/22 tabs gabapentin 300 mg capsule 300 mg PO BEDTIME 14 days #14 caps 10/28/22 ibuprofen 600 mg tablet 600 mg PO Q6H PRN pain #30 tabs 10/28/22 labetalol 100 mg tablet 100 mg PO BID #60 tabs 10/28/22 lancets 28 gauge (FreeStyle #100 ea 10/28/22 Lancets) lisinopril 40 mg tablet 40 mg PO DAILY #30 tabs 10/28/22 omeprazole 20 mg capsule,delayed 20 mg PO DAILY #20 caps 10/28/22 release prednisone 20 mg tablet 40 mg PO DAILY 5 days #10 tabs 10/28/22 naproxen 500 mg tablet 500 mg PO BID PRN for pain #60 tabs 11/04/22 albuterol sulfate 90 mcg/actuation 2 inh inhalation QID PRN shortness 11/22/22 aerosol inhaler of breath or wheezing #8.5 grams blood pressure monitor #1 ea 11/22/22 Allergies Allergy/AdvReac Type Severity Reaction Status Date / Time Iodinated Contrast Media Allergy Intermediate Anaphylaxis Verified 11/22/22 09:28 latex [Latex] Allergy Unknown RASH Verified 11/22/22 09:28 Review of Systems Review of Systems: All other systems are reviewed and are negative Constitutional: Reports as per HPI and Reports no additional constitutional complaints Eyes: Reports as per HPI and Reports no additional eye complaints Reports system reviewed and no additional complaints, except as documented Cardiovascular: Reports as per HPI and Reports no additional cardiovascular complaints Respiratory: Reports as per HPI and Reports no additional respiratory complaints Gastrointestinal: Reports as per HPI and Reports no additional gastrointestinal complaints Genitourinary: Reports no additional female genitourinary complaints Musculoskeletal: Reports no additional musculoskeletal complaints Skin/Breast: Reports system reviewed and no additional complaints, except as docu Psychiatric: Reports no additional psychiatric complaints Endocrine: Reports no additional endocrine complaints Hematologic/Lymphatic: Reports no additional hematologic/lymphatic complaints Allergic/Immunologic: Reports no additional allergic/immunologic complaints Reports system reviewed and no additional complaints, except as documented and Reports Abnormal speech present [facility] Past Medical History Medical History Anemia Asthma Bilateral hand numbness Bilateral hand pain Diabetes mellitus DJD (degenerative joint disease) GERD (gastroesophageal reflux disease) HSV (herpes simplex virus) infection HTN (hypertension) Obesity Smoking TIA (transient ischemic attack) Surgical History H/O cardiac catheterization Hx of appendectomy Hx of section Hx of cholecystectomy Hx of tubal ligation Family History Family History Mother Heart disease Diabetes Hypertension Hyperlipidemia Fibromyalgia Father No problems noted. Brother No problems noted. Brother No problems noted. Brother No problems noted. Sister Deep vein thrombosis Son No problems noted. Son No problems noted. Daughter Hypertension Daughter No problems noted. Maternal Aunt History of breast cancer Social History Social History Household Members: Children Housing: Apartment Do you presently have visiting nurse or other home services: No Alcohol intake: current Alcohol intake frequency: holidays/special occasions only Patient Tobacco Use Status: Former Tobacco user Tobacco use type: Cigarette Cigarettes Per Day: 3 Smoked in Last 30 Days: Yes e-Cigarette/Vaping Use: Never Used Second Hand Smoke Exposure: Yes Use of substances other than those prescribed or required for medical reasons: No Advance Directives: No service: No Current occupational status: employed Cognitive needs: No Hearing needs: No Vision needs: Yes (glasses) Physical Exam ED Vital Signs: Vital Signs - 24 hr 11/26/22 12:34 11/26/22 14:39 11/26/22 15:30 Temperature 98.3 F Pulse Rate 97 86 Respiratory Rate 14 18 Blood Pressure 229/128 H 193/93 H 178/106 H Pulse Oximetry 98 98 Oxygen Delivery Method Room Air Room Air 11/26/22 16:10 Temperature Pulse Rate 88 Respiratory Rate 21 H Blood Pressure 185/102 H Pulse Oximetry 97 Oxygen Delivery Method Room Air BMI result Body Mass Index 31.4 Vital signs have been reviewed as appeared to be correct. Blood pressure elevated. Heart rate normal. Respiration rate normal. Temperature normal. Oxygen saturation normal. Appearance: Alert. Oriented X3. No acute distress. Head: Normal external exam. Normocephalic. Atraumatic. No Sandoval signs noted. No raccoon eyes noted, Eyes: PERRLA. EOMI. Conjunctiva and sclera normal. Eyelids normal. ENT: TM's Normal. Pharynx normal. Uvula midline. Moist mucous membranes. No trismus noted. No drooling noted. No muffled voice noted. Neck: Normal inspection. Neck supple. FROM. No adenopathy. Thyroid Normal. No meningeal signs. No neck mass noted. Increase right side neck pain with turning the head to the right side a raising right shoulder above the head. CVS: Normal heart rate and rhythm. Heart sound normal. No murmurs noted. Pulses normal throughout. Respiratory: No respiratory distress. Painless inspiration. Breath sounds normal. No wheezes/rales/rhonchi noted. Chest nontender. No accessory muscle usage noted or decreased air movement noted. Abdomen: Soft and nontender. Bowel sounds normal in all 4 quadrants. No distention noted. No organomegaly noted. No visible injury noted. Back: No CVA tenderness. Full range of motion noted. Skin: Skin warm and dry. Normal skin color. Normal skin turgor. No rashes/lesions/lacerations noted. Extremities: No lower extremity edema. Extremities exhibit normal range of motion. Extremities nontender. Neuro: Oriented X 3. Cranial nerve exam: II-XII are grossly intact No motor deficit. No sensory deficit. Reflexes normal. Course Course Course Narrative: 42-year-old female came in for evaluation of right-sided neck pain going down to the right chest and right shoulder exam is consistent with right cervical radiculopathy, chronic troponin elevation with no delta changes/no EKG changes. Patient's symptoms improved after Dilaudid. Medications Administered Discontinued Medications Generic Name Dose Route Start Last Admin Trade Name Freq PRN Reason Stop Dose Admin Hydromorphone HCl 1 mg 11/26/22 14:43 11/26/22 15:23 Hydromorphone Hcl 1 Mg/Ml Syringe IVPUSH 11/26/22 14:44 1 mg ONCE ONE Administration Protocol Sodium Chloride 1,000 mls @ 999 mls/hr 11/26/22 12:31 11/26/22 13:57 Ns IV 11/26/22 13:31 Infused .Q1H1M ONE Infusion Sodium Chloride 1,000 mls @ 999 mls/hr 11/26/22 14:45 11/26/22 14:44 Ns IV 11/26/22 15:45 Not Given .Q1H1M MESHA Sodium Chloride 1,000 mls @ 999 mls/hr 11/26/22 14:43 11/26/22 16:11 Ns IV 11/26/22 15:43 Infused .Q1H1M ONE Infusion Ibuprofen 600 mg 11/26/22 12:37 11/26/22 12:51 Ibuprofen 600 Mg Tablet PO 11/26/22 12:38 600 mg ONCE ONE Administration Metoprolol Tartrate 25 mg 11/26/22 12:37 11/26/22 12:51 Metoprolol Tartrate 25 Mg Tablet PO 11/26/22 12:38 25 mg ONCE ONE Administration Protocol Oxycodone HCl 5 mg 11/26/22 12:37 11/26/22 12:50 Oxycodone Hcl Immed Release 5 Mg Tablet PO 11/26/22 12:38 5 mg ONCE ONE Administration Medical Decision Making Differential Diagnosis Differential Diagnoses: The differential diagnosis associated with the presentation includes (ACS, CHF, cervical radiculopathy, electrolyte abnorm ality, severe anemia, hypertensive urgency, hypertensive emergency.) Admission/Observation Consideration of admission/observation: Escalation of care including admission/observation considered Lab Data MDM Lab Attestation statement: I reviewed the patient's lab results. 11/26/22 12:47 11/26/22 12:47 Labs: Lab Results 11/26/22 11/26/22 11/26/22 Range/Units 12:47 12:47 12:47 WBC 11.1 H (4.8-10.8) X10*3/uL RBC 5.48 (4.20-5.50) X10*6/uL Hgb 12.5 (12.0-16.0) g/dl Hct 39.7 (37.0-47.0) % MCV 72.4 L (80.0-98.0) fL MCH 22.8 L (27.0-33.0) pg MCHC 31.5 (31.0-35.0) g/dl RDW 16.7 H (11.0-16.0) % Plt Count 265 (160-400) X10*3/uL MPV 10.9 (9.4-12.3) fL Immature Gran % (Auto) 0.4 (0.0-0.4) % Neut % (Auto) 63.3 (45-73) % Lymph % (Auto) 27.1 (20-40) % Franklin % (Auto) 6.4 (2-11) % Eos % (Auto) 2.5 (0-4) % Baso % (Auto) 0.3 (0-2) % Lymph # (Auto) 3.0 (1.2-4.9) X10*3/uL [place] # (Auto) 0.7 (0.1-1.2) X10*3/uL Eos # (Auto) 0.3 (0.0-0.4) X10*3/uL Baso # (Auto) 0.0 (0.0-0.2) X10*3/uL Abs Immat Gran (auto) 0.04 H (0.00-0.03) X10*3/uL Absolute Neuts (auto) 7.0 (2.0-8.3) x10*3/uL Absolute Nucleated RBC 0.000 (0.0-0.012) X10*3/uL Nucleated RBC % (auto) 0.0 (0.0-0.2) /100WBC D-Dimer High Sensitivty NG/ML Sodium 136 (135-145) mmol/L Potassium 3.9 (3.3-5.1) mmol/L Chloride 100 (96-108) mmol/L Carbon Dioxide 27 (22-29) mmol/L Anion Gap 13 (12-20) BUN 13 (9-16) mg/dL Creatinine 0.77 (0.5-1.4) mg/dL Estim Creat Clear Calc 91.0 Estimated GFR > 60 Random Glucose 257 H (60-115) mg/dL Calcium 9.5 D (8.4-10.2) mg/dL Total Bilirubin 0.5 (0.0-1.0) mg/dL Direct Bilirubin 0.1 (0.0-0.5) mg/dL AST 28 (5-31) U/L ALT 21 (0-31) U/L Alkaline Phosphatase 98 (39-117) U/L Troponin I High Sens 52.9 H* (<3.5-17.0) ng/L B-Natriuretic Peptide (<100) pg/mL Total Protein 7.7 (6.5-8.0) g/dL Albumin 3.7 (3.5-5.0) g/dL Lipase 17 (8-78) U/L 11/26/22 11/26/22 11/26/22 Range/Units 12:47 12:47 15:15 WBC (4.8-10.8) X10*3/uL RBC (4.20-5.50) X10*6/uL Hgb (12.0-16.0) g/dl Hct (37.0-47.0) % MCV (80.0-98.0) fL MCH (27.0-33.0) pg MCHC (31.0-35.0) g/dl RDW (11.0-16.0) % Plt Count (160-400) X10*3/uL MPV (9.4-12.3) fL Immature Gran % (Auto) (0.0-0.4) % Neut % (Auto) (45-73) % Lymph % (Auto) (20-40) % Franklin % (Auto) (2-11) % Eos % (Auto) (0-4) % Baso % (Auto) (0-2) % Lymph # (Auto) (1.2-4.9) X10*3/uL [place] # (Auto) (0.1-1.2) X10*3/uL Eos # (Auto) (0.0-0.4) X10*3/uL Baso # (Auto) (0.0-0.2) X10*3/uL Abs Immat Gran (auto) (0.00-0.03) X10*3/uL Absolute Neuts (auto) (2.0-8.3) x10*3/uL Absolute Nucleated RBC (0.0-0.012) X10*3/uL Nucleated RBC % (auto) (0.0-0.2) /100WBC D-Dimer High Sensitivty < 150 NG/ML Sodium (135-145) mmol/L Potassium (3.3-5.1) mmol/L Chloride (96-108) mmol/L Carbon Dioxide (22-29) mmol/L Anion Gap (12-20) BUN (9-16) mg/dL Creatinine (0.5-1.4) mg/dL Estim Creat Clear Calc Estimated GFR Random Glucose (60-115) mg/dL Calcium (8.4-10.2) mg/dL Total Bilirubin (0.0-1.0) mg/dL Direct Bilirubin (0.0-0.5) mg/dL AST (5-31) U/L ALT (0-31) U/L Alkaline Phosphatase (39-117) U/L Troponin I High Sens 55.6 H* (<3.5-17.0) ng/L B-Natriuretic Peptide 150 H (<100) pg/mL Total Protein (6.5-8.0) g/dL Albumin (3.5-5.0) g/dL Lipase (8-78) U/L Independent Interpretation I performed an independent interpretation of an: EKG (Normal sinus rhythm at 99 beats per minute, LVH, diffuse nonspecific [id number] with no change from previous EKG.), Plain X-Ray (Chest: No acute intrathoracic pathology.) and CT Scan (Head: No acute intracranial pathology) Radiology Impression Discussion of test interpretation with radiology: I have reviewed the radiol ogist's reading. Chronic Conditions Patient?s care impacted by: Hypertension Discharge Plan Discharge Clinical Impression: HTN (hypertension), Cervical radiculopathy Patient Disposition: Home, Self-Care Instructions: Cervical Radiculopathy (ED) Prescriptions: No Action (DME) nebulizers Misc See Rx Instructions .Route Qty: 1 0RF Rx Instructions: to use every 4 hours as needed for wheezing aspirin 81 mg tablet,delayed release (DR/EC) 81 mg PO DAILY Qty: 81 8RF hydrochlorothiazide 25 mg tablet 25 mg PO DAILY Qty: 90 8RF (DME) FreeStyle Lite Strips Strip See Rx Instructions .ROUTE .MEDSUPPLY Qty: 100 7RF Rx Instructions: BID As directed amlodipine 10 mg tablet 10 mg PO DAILY Qty: 90 2RF naproxen 500 mg tablet 500 mg PO BID PRN (Reason: for pain) Qty: 60 0RF albuterol sulfate 90 mcg/actuation HFA aerosol inhaler 2 inh inhalation QID PRN (Reason: shortness of breath or wheezing) Qty: 8.5 8RF (DME) blood pressure monitor Kit See Rx Instructions .Route Qty: 1 0RF Rx Instructions: As directed (DME) blood-glucose meter [FreeStyle [place]] Kit See Rx Instructions .ROUTE .MEDSUPPLY Qty: 1 0RF Rx Instructions: As directed valacyclovir 500 mg tablet 1 tab PO DAILY tamsulosin [Flomax] 0.4 mg capsule 0.4 mg PO DAILY 14 Days Qty: 14 0RF albuterol sulfate 2.5 mg /3 mL (0.083 %) solution for nebulization inhalation Q4H PRN (Reason: muscle spasm) metformin 1,000 mg tablet 1,000 mg PO BID Qty: 60 8RF albuterol sulfate 90 mcg/actuation aero powdr breath act w/sensor 2 inh inhalation Q4-6H PRN (Reason: shortness of breath or wheezing) Qty: 1 0RF Rx Instructions: May dispense medication equivalent accepted by patient's insurance albuterol sulfate 0.63 mg/3 mL solution for nebulization 0.63 mg inhalation Q4-6H PRN (Reason: shortness of breath or wheezing) Qty: 90 0RF Rx Instructions: May dispense medication equivalent accepted by patient's insurance cyclobenzaprine 10 mg tablet 10 mg PO TID PRN (Reason: muscle spasm) Qty: 30 2RF gabapentin 300 mg capsule 300 mg PO BEDTIME 14 Days Qty: 14 0RF ibuprofen 600 mg tablet 600 mg PO Q6H PRN (Reason: pain) Qty: 30 0RF labetalol 100 mg tablet 100 mg PO BID Qty: 60 8RF Protocol: Hold for SBP/HR < HOLD for SBP < : 90 HOLD for HR < : 60 (DME) lancets [FreeStyle Lancets] 28 gauge misc See Rx Instructions .ROUTE .MEDSUPPLY Qty: 100 7RF Rx Instructions: BID As directed lisinopril 40 mg tablet 40 mg PO DAILY Qty: 30 0RF omeprazole 20 mg capsule,delayed release(DR/EC) 20 mg PO DAILY Qty: 20 0RF prednisone 20 mg tablet 40 mg PO DAILY 5 Days Qty: 10 0RF Referrals: Derrek Hollingsworth MD [Primary Care Provider] -
[2022-11-26] MEDS: oxyCODONE HCl Immed Release 5 MG TABLET PO (12:50)
[2022-11-26] MEDS: Ibuprofen 600 MG TABLET PO (12:51)
[2022-11-26] MEDS: 0.9 % Sodium Chloride 1,000 ML 999 ML IV ×2 (12:51→15:24)
[2022-11-26] MEDS: Metoprolol Tartrate 25 MG TABLET PO (12:51)
[2022-11-26 12:54] LABS: MANUAL DIFF FLAG NO
[2022-11-26 12:57] LABS: Basophils Percent Auto 0.3 % (0-2); Eosinophils Absolute Auto 0.3 X10*3/uL (0.0-0.4); Eosinophils Percent Auto 2.5 % (0-4); Hematocrit 39.7 % (37.0-47.0); Hemoglobin 12.5 g/dl (12.0-16.0); Imm Gran Abs Auto 0.04 X10*3/uL (0.00-0.03); Imm Gran Pct Auto 0.4 % (0.0-0.4); Lymphocytes Percent Auto 27.1 % (20-40); Mean Corpuscular HGB Conc 31.5 g/dl (31.0-35.0); Mean Corpuscular Hemoglobin 22.8 pg (27.0-33.0); Mean Corpuscular Volume 72.4 fL (80.0-98.0); Mean Platelet Volume 10.9 fL (9.4-12.3); Monocytes Absolute Auto 0.7 X10*3/uL (0.1-1.2); Monocytes Percent Auto 6.4 % (2-11); Neutrophils Percent Auto 63.3 % (45-73); Platelet Count 265 X10*3/uL (160-400); Red Blood Count 5.48 X10*6/uL (4.20-5.50); Red Cell Distribution Width 16.7 % (11.0-16.0); White Blood Count 11.1 X10*3/uL (4.8-10.8)
[2022-11-26 13:04] LABS: D Dimer High Sensitivity < 150 NG/ML
[2022-11-26 13:22] LABS: B Type Natriuretic Peptide 150 pg/mL (<100)
[2022-11-26 13:54] LABS: Alanine Aminotransferase 21 U/L (0-31); Albumin Level 3.7 g/dL (3.5-5.0); Alkaline Phosphatase 98 U/L (39-117); Anion Gap 13 (12-20); Aspartate Amino Transferase 28 U/L (5-31); Bilirubin Direct 0.1 mg/dL (0.0-0.5); Bilirubin Total 0.5 mg/dL (0.0-1.0); Blood Urea Nitrogen 13 mg/dL (9-16); Calcium 9.5 mg/dL (8.4-10.2); Carbon Dioxide 27 mmol/L (22-29); Chloride 100 mmol/L (96-108); Estimated Glomerular Filt Rate > 60; Glucose Random 257 mg/dL (60-115); Lipase 17 U/L (8-78); Potassium 3.9 mmol/L (3.3-5.1); Sodium 136 mmol/L (135-145); Total Protein 7.7 g/dL (6.5-8.0)
[2022-11-26 14:04] LABS: Troponin-I High Sensitivity 52.9 ng/L (<3.5-17.0)
[2022-11-26 14:39] VITALS: BP 193/93; PULSE 86; RESP 18; O2SAT 98
[2022-11-26] MEDS: HYDROmorphone HCl 1 MG/ML SYRINGE IVPUSH (15:23)
[2022-11-26 15:30] VITALS: BP 178/106
[2022-11-26 15:52] LABS: Troponin-I High Sensitivity 55.6 ng/L (<3.5-17.0)
[2022-11-26 16:10] VITALS: BP 185/102; PULSE 88; RESP 21; O2SAT 97
[2022-11-26 16:32] VITALS: BP 193/111; PULSE 79; RESP 16; O2SAT 92
[2022-11-26] MEDS: ondansetron HCL 4 MG/2 ML VIAL IVPUSH (16:48)
[2022-11-26 17:47] LABS: UPreg QC Valid YES; Urine Pregnancy NEGATIVE (NEGATIVE)
[2022-11-26] MEDS: Ondansetron ODT 4 MG TAB.RAPDIS TRANSLINGU (17:49)
[2022-11-26 17:51] LABS: Appearance Urine Cloudy; Color Urine RED; Glucose Urine UA 250 mg/dL (Negative); Leukocyte Esterase Urine Negative (Negative); Nitrite Urine Negative (Negative); PH 6.5 (5.0-9.0); Specific Gravity - Urine 1.025 (1.005-1.025); UMIC TRIGGER UACC YES; Urine Blood Large (3+) (Negative); Urine Ketones Negative (Negative); Urine Protein 30 (1+) mg/dL (Neg-Trace)
[2022-11-26 18:02] LABS: Bacteria Urine Trace (None Seen); Hyaline Casts Urine 0-2 /LPF (0-2); RBC Urine >20 /HPF (0-2); UACC Culture Trigger YES; WBC Urine >50 /HPF (0-5)
== END 2022-11-26 17:57 | disposition home or self-care (01) ==
PROVIDERS: Emergency Provider Emergency Medicine; PCP Internal Medicine
DX: M54.12 Radiculopathy, cervical region (principal); I10 Essential (primary) hypertension; E11.9 Type 2 diabetes mellitus without complications; E66.9 Obesity, unspecified; Z68.31 Body mass index [BMI] 31.0-31.9, adult; Z86.73 Personal history of transient ischemic attack (TIA), and cerebral infarction without residual deficits; Z87.891 Personal history of nicotine dependence; Z79.82 Long term (current) use of aspirin; Z79.899 Other long term (current) drug therapy; Z79.84 Long term (current) use of oral hypoglycemic drugs
CPT/HCPCS: 36415; 70450; 71045; 80048; 80076; 81001; 81025; 83690; 83880; 84484; 85025; 85379; 87086; 93005; 96361; 96374; 96375; 99284; 99285; J1170; J2405

== ENCOUNTER 2022-12-15 17:55 | Emergency (ER) | payer OTHER, SELFPAY ==
--- NOTE | ~2022-12-15 | XR_ITS ---
EXAMINATION: XR CHEST CLINICAL INFORMATION: Chest pain. COMPARISON: Chest radiograph 11/26/2022. TECHNIQUE: 2 views of the chest were obtained. FINDINGS: No significant abnormality is noted involving the heart, lungs, mediastinum, bony thorax or soft tissues. XR/XR chest 2V IMPRESSION: Unremarkable examination.
--- NOTE | 2022-12-15 17:57 | ECG_ITS ---
Test Reason : CHEST PAIN Blood Pressure : / mmHG Vent. Rate : 093 BPM Atrial Rate : 093 BPM P-R Int : 160 ms QRS Dur : 086 ms QT Int : 394 ms P-R-T Axes : 034 -28 138 degrees QTc Int : 489 ms Normal sinus rhythm Possible Left atrial enlargement Left ventricular hypertrophy ( R in aVL , Neptali product ) Cannot rule out Septal infarct , age undetermined Marked ST abnormality, possible lateral subendocardial injury Abnormal ECG When compared with ECG of 26-NOV-2022 12:24, No significant change was found Referred By: Sigrid Price Electronically Signed By:HUMA FERMIN
[2022-12-15 18:01] VITALS: BP 210/107; PULSE 99; RESP 14; TEMP 37.4; O2SAT 99; BMI 36.9
--- NOTE | 2022-12-15 18:01 | ED.GENADULT ---
HPI - General Adult General Chief complaint: Chest Pain Stated complaint: Chest pain, head pressure, asthma, R arm pain Time Seen by Provider: 12/15/22 18:44 Source: patient Mode of arrival: ambulatory Limitations: no limitations History of Present Illness HPI narrative: A 42-year-old female came in for evaluation of anterior chest pain radiating to the right shoulder and right side of the neck pain is been constant for at least 2 weeks waxes and wanes, pain is worsening with turning his head right or left or try to left her right shoulder, nothing relieves the pain completely. No coughing, no fever, no chills, no SOB, no recent travel, no lower extremity swelling. Patient was seen and evaluated for same pain 19 days ago in the emergency department with unremarkable workup. Patient with history of hypertension take metoprolol at home for the pain have high blood pressure in the emergency department. Related Data Home Medications Medication Instructions Recorded Confirmed valacyclovir 500 mg tablet 1 tab PO DAILY 07/21/21 11/22/22 albuterol sulfate 2.5 mg/3 mL mg inhalation Q4H PRN muscle spasm 11/30/21 11/22/22 (0.083 %) solution for nebulization Previous Rx's Medication Instructions Recorded blood-glucose meter (FreeStyle #1 ea 09/05/20 [place] kit) nebulizers #1 ea 06/17/21 aspirin 81 mg tablet,delayed 81 mg PO DAILY #81 tabs 02/16/22 release tamsulosin 0.4 mg capsule (Flomax) 0.4 mg PO DAILY 14 days #14 caps 04/03/22 hydrochlorothiazide 25 mg tablet 25 mg PO DAILY #90 tabs 08/04/22 metformin 1,000 mg tablet 1,000 mg PO BID #60 tabs 08/18/22 blood sugar diagnostic (FreeStyle #100 ea 09/12/22 Lite Strips) amlodipine 10 mg tablet 10 mg PO DAILY #90 tabs 10/05/22 albuterol sulfate 0.63 mg/3 mL 0.63 mg (3 mL) inhalation Q4-6H 10/28/22 solution for nebulization PRN shortness of breath or wheezing #90 mL albuterol sulfate 90 mcg/actuation 2 inh inhalation Q4-6H PRN 10/28/22 breath activated powder shortness of breath or wheezing #1 inhaler,sensor ea cyclobenzaprine 10 mg tablet 10 mg PO TID PRN muscle spasm #30 10/28/22 tabs gabapentin 300 mg capsule 300 mg PO BEDTIME 14 days #14 caps 10/28/22 ibuprofen 600 mg tablet 600 mg PO Q6H PRN pain #30 tabs 10/28/22 labetalol 100 mg tablet 100 mg PO BID #60 tabs 10/28/22 lancets 28 gauge (FreeStyle #100 ea 10/28/22 Lancets) lisinopril 40 mg tablet 40 mg PO DAILY #30 tabs 10/28/22 omeprazole 20 mg capsule,delayed 20 mg PO DAILY #20 caps 10/28/22 release prednisone 20 mg tablet 40 mg (2 x 20 mg) PO DAILY 5 days 10/28/22 #10 tabs naproxen 500 mg tablet 500 mg PO BID PRN for pain #60 tabs 11/04/22 albuterol sulfate 90 mcg/actuation 2 inh inhalation QID PRN shortness 11/22/22 aerosol inhaler of breath or wheezing #8.5 grams blood pressure monitor #1 ea 11/22/22 oxycodone 5 mg tablet 5 mg PO TID PRN pain #10 tabs 12/15/22 Allergies Allergy/AdvReac Type Severity Reaction Status Date / Time Iodinated Contrast Media Allergy Intermediate Anaphylaxis Verified 11/22/22 09:28 latex [Latex] Allergy Unknown RASH Verified 11/22/22 09:28 Review of Systems Review of Systems: All other systems are reviewed and are negative Constitutional: Reports as per HPI and Reports no additional constitutional complaints Eyes: Reports as per HPI and Reports no additional eye complaints Reports system reviewed and no additional complaints, except as documented Cardiovascular: Reports as per HPI and Reports no additional cardiovascular complaints Respiratory: Reports as per HPI and Reports no additional respiratory complaints Gastrointestinal: Reports as per HPI and Reports no additional gastrointestinal complaints Genitourinary: Reports no additional female genitourinary complaints Musculoskeletal: Reports no additional musculoskeletal complaints Skin/Breast: Reports system reviewed and no additional complaints, except as docu Psychiatric: Reports no additional psychiatric complaints Endocrine: Reports no additional endocrine complaints Hematologic/Lymphatic: Reports no additional hematologic/lymphatic complaints Allergic/Immunologic: Reports no additional allergic/immunologic complaints Reports system reviewed and no additional complaints, except as documented and Reports Abnormal speech present [facility] Past Medical History Medical History Anemia Bilateral hand numbness Bilateral hand pain HSV (herpes simplex virus) infection Smoking TIA (transient ischemic attack) DJD (degenerative joint disease) GERD (gastroesophageal reflux disease) Asthma Obesity Diabetes mellitus HTN (hypertension) Surgical History H/O cardiac catheterization Hx of tubal ligation Hx of cholecystectomy Hx of appendectomy Hx of section Family History Family History Mother Heart disease Diabetes Hypertension Hyperlipidemia Fibromyalgia Father No problems noted. Brother No problems noted. Brother No problems noted. Brother No problems noted. Sister Deep vein thrombosis Son No problems noted. Son No problems noted. Daughter Hypertension Daughter No problems noted. Maternal Aunt History of breast cancer Social History Social History Household Members: Children Housing: Apartment Do you presently have visiting nurse or other home services: No Alcohol intake: current Alcohol intake frequency: holidays/special occasions only Patient Tobacco Use Status: Former Tobacco user Tobacco use type: Cigarette Cigarettes Per Day: 3 e-Cigarette/Vaping Use: Never Used Second Hand Smoke Exposure: Yes Advance Directives: No Advance Directives Information Provided: Yes service: No Current occupational status: employed Cognitive needs: No Hearing needs: No Vision needs: Yes (glasses) Physical Exam ED Vital Signs: Vital Signs - 24 hr 12/15/22 18:01 12/15/22 19:27 Temperature 99.4 F 98.2 F Pulse Rate 99 91 Respiratory Rate 14 17 Blood Pressure 210/107 H 200/101 H Pulse Oximetry 99 97 Oxygen Delivery Method Room Air BMI result Body Mass Index 36.9 Vital signs have been reviewed and appear to be correct. Blood pressure elevated. Heart rate normal. Respiratory rate normal. Temperature normal. Oxygen saturation normal. Appearance: Alert. Oriented X3. No acute distress. Head: Normal external exam. Normocephalic. Atraumatic. No [place] signs noted. No raccoon eyes noted, Eyes: PERRLA. EOMI. Conjunctiva and sclera normal. Eyelids normal. ENT: TM's Normal. Pharynx normal. Uvula midline. Moist mucous membranes. No trismus noted. No drooling noted. No muffled voice noted. Neck: Normal inspection. Neck supple. FROM. No adenopathy. Thyroid Normal. No meningeal signs. No neck mass noted. Increase right side neck pain with turning the head to the right side a raising right shoulder above the head. CVS: Normal heart rate and rhythm. Heart sound normal. No murmurs noted. Pulses normal throughout. Respiratory: No respiratory distress. Painless inspiration. Breath sounds normal. No wheezes/rales/rhonchi noted. Chest nontender. No accessory muscle usage noted or decreased air movement noted. Abdomen: Soft and nontender. Bowel sounds normal in all 4 quadrants. No distention noted. No organomegaly noted. No visible injury noted. Back: No CVA tenderness. Full range of motion noted. Skin: Skin warm and dry. Normal skin color. Normal skin turgor. No rashes/lesions/lacerations noted. Extremities: No lower extremity edema. Extremities exhibit normal range of motion. Extremities nontender. Neuro: Oriented X 3. Cranial nerve exam: II-XII are grossly intact No motor deficit. No sensory deficit. Reflexes normal. Course Course Course Narrative: This is a rapid medical exam: Additional HPI, ROS, PE not included below will be deferred to primary provider. Patient is a 42-year-old female with history of asthma, LVH, anemia, cardiac cath, T2DM, TIA, HTN presenting to the emergency department with complaint of right anterior chest pain since last night. Also reports cough and shortness of breath and states pain increases with coughing. Took ibuprofen 6 hrs ago with some relief. Speaking easily in full sentences in triage. Reports body aches but denies recent calf pain or swelling. Patient hypertensive in triage to 211/107, states she did take her BP medication this morning. Plan: EKG, labs, CXR Reevaluation(s) Reevaluation #1: 42-year-old female came in for evaluation of right-sided neck pain going down to the right chest and right shoulder exam is consistent with right cervical radiculopathy, chronic troponin elevation with no delta changes/no EKG changes. Low risk for PE/DVT with a negative D-dimer. Patient's symptoms improved after Dilaudid. Patient was instructed to follow-up with PCP for blood pressure management. Time: 21:09 Medications Administered Discontinued Medications Generic Name Dose Route Start Last Admin Trade Name Freq PRN Reason Stop Dose Admin Hydromorphone HCl 2 mg 12/15/22 19:55 12/15/22 19:59 Hydromorphone Hcl 2 Mg/Ml Vial IVPUSH 12/15/22 19:56 2 mg ONCE ONE Administration Protocol Metoprolol Tartrate 50 mg 12/15/22 19:06 12/15/22 19:32 Metoprolol Tartrate 50 Mg Tablet PO 12/15/22 19:07 50 mg ONCE ONE Administration Protocol Medical Decision Making Differential Diagnosis Differential Diagnoses: The differential diagnosis associated with the presentation includes (ACS, CHF, cervical radiculopathy, electrolyte abnormality, severe anemia, hypertensive urgency, hypertensive emergency, pulmonary embolism.) Admission/Observation Consideration of admission/observation: Escalation of care including admission/observation considered Lab Data MDM Lab Attestation statement: I reviewed the patient's lab results. 12/15/22 18:16 12/15/22 18:16 Labs: Lab Results 12/15/22 Range/Units 18:16 WBC 11.0 H (4.8-10.8) X10*3/uL RBC 5.30 (4.20-5.50) X10*6/uL Hgb 12.4 (12.0-16.0) g/dl Hct 38.3 (37.0-47.0) % MCV 72.3 L (80.0-98.0) fL MCH 23.4 L (27.0-33.0) pg MCHC 32.4 (31.0-35.0) g/dl RDW 17.1 H (11.0-16.0) % Plt Count 268 (160-400) X10*3/uL MPV 11.0 (9.4-12.3) fL Immature Gran % (Auto) 0.5 H (0.0-0.4) % Neut % (Auto) 60.8 (45-73) % Lymph % (Auto) 27.4 (20-40) % [place] % (Auto) 7.6 (2-11) % Eos % (Auto) 3.2 (0-4) % Baso % (Auto) 0.5 (0-2) % Lymph # (Auto) 3.0 (1.2-4.9) X10*3/uL [place] # (Auto) 0.8 (0.1-1.2) X10*3/uL Eos # (Auto) 0.4 (0.0-0.4) X10*3/uL Baso # (Auto) 0.1 (0.0-0.2) X10*3/uL Abs Immat Gran (auto) 0.05 H (0.00-0.03) X10*3/uL Absolute Neuts (auto) 6.7 (2.0-8.3) x10*3/uL Absolute Nucleated RBC 0.000 (0.0-0.012) X10*3/uL Nucleated RBC % (auto) 0.0 (0.0-0.2) /100WBC PT 11.8 (11.1-13.3) SEC INR 1.0 (0.9-1.1) D-Dimer High Sensitivty < 150 NG/ML Sodium 135 (135-145) mmol/L Potassium 3.6 (3.3-5.1) mmol/L Chloride 104 (96-108) mmol/L Carbon Dioxide 22 (22-29) mmol/L Anion Gap 13 (12-20) BUN 8 L (9-16) mg/dL Creatinine 0.77 (0.5-1.4) mg/dL Estim Creat Clear Calc 91.6 Estimated GFR > 60 Random Glucose 301 H (60-115) mg/dL Calcium 9.1 (8.4-10.2) mg/dL Total Bilirubin 0.3 (0.0-1.0) mg/dL AST 18 (5-31) U/L ALT 18 (0-31) U/L Alkaline Phosphatase 96 (39-117) U/L Troponin I High Sens 56.9 H* (<3.5-17.0) ng/L Total Protein 7.5 (6.5-8.0) g/dL Albumin 3.7 (3.5-5.0) g/dL Independent Interpretation I performed an independent interpretation of an: Plain X-Ray ( Chest: unremarkable examination.) Radiology Impression Discussion of test interpretation with radiology: I have reviewed the radiologist's reading. Discharge Plan Discharge Clinical Impression: HTN (hypertension), Cervical radiculopathy Patient Disposition: Home, Self-Care Instructions: Cervical Radiculopathy (ED) Prescriptions: New oxycodone 5 mg tablet 5 mg PO TID PRN (Reason: pain) Qty: 10 0RF Rx Instructions: Partial Fill upon patient request. No Action (DME) nebulizers Misc See Rx Instructions .Route Qty: 1 0RF Rx Instructions: to use every 4 hours as needed for wheezing aspirin 81 mg tablet,delayed release (DR/EC) 81 mg PO DAILY Qty: 81 8RF hydrochlorothiazide 25 mg tablet 25 mg PO DAILY Qty: 90 8RF (DME) FreeStyle Lite Strips Strip See Rx Instructions .ROUTE .MEDSUPPLY Qty: 100 7RF Rx Instructions: BID As directed amlodipine 10 mg tablet 10 mg PO DAILY Qty: 90 2RF naproxen 500 mg tablet 500 mg PO BID PRN (Reason: for pain) Qty: 60 0RF albuterol sulfate 90 mcg/actuation HFA aerosol inhaler 2 inh inhalation QID PRN (Reason: shortness of breath or wheezing) Qty: 8.5 8RF (DME) blood pressure monitor Kit See Rx Instructions .Route Qty: 1 0RF Rx Instructions: As directed (DME) blood-glucose meter [FreeStyle [place]] Kit See Rx Instructions .ROUTE .MEDSUPPLY Qty: 1 0RF Rx Instructions: As directed valacyclovir 500 mg tablet 1 tab PO DAILY tamsulosin [Flomax] 0.4 mg capsule 0.4 mg PO DAILY 14 Days Qty: 14 0RF albuterol sulfate 2.5 mg /3 mL (0.083 %) solution for nebulization inhalation Q4H PRN (Reason: muscle spasm) metformin 1,000 mg tablet 1,000 mg PO BID Qty: 60 8RF albuterol sulfate 90 mcg/actuation aero powdr breath act w/sensor 2 inh inhalation Q4-6H PRN (Reason: shortness of breath or wheezing) Qty: 1 0RF Rx Instructions: May dispense medication equivalent accepted by patient's insurance albuterol sulfate 0.63 mg/3 mL solution for nebulization 0.63 mg inhalation Q4-6H PRN (Reason: shortness of breath or wheezing) Qty: 90 0RF Rx Instructions: May dispense medication equivalent accepted by patient's insurance cyclobenzaprine 10 mg tablet 10 mg PO TID PRN (Reason: muscle spasm) Qty: 30 2RF gabapentin 300 mg capsule 300 mg PO BEDTIME 14 Days Qty: 14 0RF ibuprofen 600 mg tablet 600 mg PO Q6H PRN (Reason: pain) Qty: 30 0RF labetalol 100 mg tablet 100 mg PO BID Qty: 60 8RF Protocol: Hold for SBP/HR < HOLD for SBP < : 90 HOLD for HR < : 60 (DME) lancets [FreeStyle Lancets] 28 gauge misc See Rx Instructions .ROUTE .MEDSUPPLY Qty: 100 7RF Rx Instructions: BID As directed lisinopril 40 mg tablet 40 mg PO DAILY Qty: 30 0RF omeprazole 20 mg capsule,delayed release(DR/EC) 20 mg PO DAILY Qty: 20 0RF prednisone 20 mg tablet 40 mg PO DAILY 5 Days Qty: 10 0RF Referrals: Derrek Hollingsworth MD [Primary Care Provider] -
[2022-12-15 18:22] LABS: MANUAL DIFF FLAG NO
[2022-12-15 18:26] LABS: Hemoglobin 12.4 g/dl (12.0-16.0); SCAN SMEAR FLAG 1
[2022-12-15 18:28] LABS: Basophils Absolute Auto 0.1 X10*3/uL (0.0-0.2); Basophils Percent Auto 0.5 % (0-2); Eosinophils Absolute Auto 0.4 X10*3/uL (0.0-0.4); Eosinophils Percent Auto 3.2 % (0-4); Hematocrit 38.3 % (37.0-47.0); Imm Gran Abs Auto 0.05 X10*3/uL (0.00-0.03); Imm Gran Pct Auto 0.5 % (0.0-0.4); Lymphocytes Percent Auto 27.4 % (20-40); Mean Corpuscular HGB Conc 32.4 g/dl (31.0-35.0); Mean Corpuscular Hemoglobin 23.4 pg (27.0-33.0); Mean Corpuscular Volume 72.3 fL (80.0-98.0); Monocytes Absolute Auto 0.8 X10*3/uL (0.1-1.2); Monocytes Percent Auto 7.6 % (2-11); Neutrophils Absolute Auto 6.7 x10*3/uL (2.0-8.3); Neutrophils Percent Auto 60.8 % (45-73); PLT ABN DIST 1; Platelet Count 268 X10*3/uL (160-400); Prothrombin Time 11.8 SEC (11.1-13.3); Red Cell Distribution Width 17.1 % (11.0-16.0)
[2022-12-15 18:38] LABS: Alanine Aminotransferase 18 U/L (0-31); Albumin Level 3.7 g/dL (3.5-5.0); Alkaline Phosphatase 96 U/L (39-117); Anion Gap 13 (12-20); Aspartate Amino Transferase 18 U/L (5-31); Bilirubin Total 0.3 mg/dL (0.0-1.0); Blood Urea Nitrogen 8 mg/dL (9-16); Calcium 9.1 mg/dL (8.4-10.2); Carbon Dioxide 22 mmol/L (22-29); Chloride 104 mmol/L (96-108); Creatinine Clr Calc Pharmacy 91.6; Estimated Glomerular Filt Rate > 60; Glucose Random 301 mg/dL (60-115); Potassium 3.6 mmol/L (3.3-5.1); Sodium 135 mmol/L (135-145); Total Protein 7.5 g/dL (6.5-8.0)
[2022-12-15 18:52] LABS: Troponin-I High Sensitivity 56.9 ng/L (<3.5-17.0)
[2022-12-15 19:14] LABS: D Dimer High Sensitivity < 150 NG/ML
[2022-12-15 19:27] VITALS: BP 200/101; PULSE 91; RESP 17; TEMP 36.8; O2SAT 97
[2022-12-15] MEDS: Metoprolol Tartrate 50 MG TABLET PO (19:32)
[2022-12-15] MEDS: HYDROmorphone HCl 2 MG/ML VIAL IVPUSH (19:59)
[2022-12-15 21:27] LABS: Troponin-I High Sensitivity 54.1 ng/L (<3.5-17.0)
[2022-12-15] MEDS: ondansetron HCL 4 MG/2 ML VIAL IVPUSH (22:06)
== END 2022-12-15 22:14 | disposition home or self-care (01) ==
PROVIDERS: Registered Nurse Emergency; Emergency Provider Emergency Medicine; PCP Internal Medicine
DX: M54.12 Radiculopathy, cervical region (principal); I10 Essential (primary) hypertension; E11.9 Type 2 diabetes mellitus without complications; E66.9 Obesity, unspecified; Z68.36 Body mass index [BMI] 36.0-36.9, adult; Z86.73 Personal history of transient ischemic attack (TIA), and cerebral infarction without residual deficits; Z87.891 Personal history of nicotine dependence; Z79.899 Other long term (current) drug therapy; Z79.82 Long term (current) use of aspirin; Z79.84 Long term (current) use of oral hypoglycemic drugs
CPT/HCPCS: 36415; 71046; 80053; 84484; 85025; 85379; 85610; 93005; 96374; 96375; 99284; J1170; J2405

== ENCOUNTER → 2022-12-16 09:56 | Outpatient (REF) | payer OTHER, SELFPAY | LOC: HO.SL 09:56 | PROVIDERS: PCP Internal Medicine; Visit Provider Internal Medicine | DX: Z13.89 Encounter for screening for other disorder (principal) ==

== ENCOUNTER 2022-12-22 11:30 | Outpatient (AMB) | payer OTHER, SELFPAY ==
--- NOTE | 2022-12-22 11:32 | MHC.OFFVIS ---
Intake Vital Signs 12/22/22 11:34 Height 5 ft 2 in Weight 185 lb 3.013 oz BMI 33.9 BP 189/102 H Blood Pressure Location Lt brachial Position Sitting Pulse 96 Intake Visit Reasons: Gastroesophageal reflux disease (GERD) Intake Note: Amy presents in the office as a new patient. CC: She states that she is having bad acid reflux. Sometimes she has constipation - sometimes she has blood. She states she has a hernia and she gets bloating in her stomach - she will get swollen and looks like she is . She gets a lot of pains in her stomach. Signals Collection Technician Required: No Allergies Iodinated Contrast Media Allergy (Intermediate, Verified 12/22/22 11:35) Anaphylaxis latex [Latex] Allergy (Unknown, Verified 12/22/22 11:35) RASH Medication List - Last Reconciled 12/22/22 by Krystal Conde PA-C albuterol sulfate 0.63 mg (3 mL) inhalation Q4-6H PRN albuterol sulfate 90 mcg/actuation 2 inhalations inhalation QID PRN albuterol sulfate mg inhalation Q4H PRN albuterol sulfate 90 mcg/actuation 2 inhalations inhalation Q4-6H PRN amlodipine 10 mg PO DAILY aspirin 81 mg PO DAILY blood pressure monitor As directed blood sugar diagnostic (FreeStyle Lite Strips) BID As directed blood-glucose meter (FreeStyle [place] kit) As directed cyclobenzaprine 10 mg PO TID PRN gabapentin 300 mg PO BEDTIME 14 days hydrochlorothiazide 25 mg PO DAILY ibuprofen 600 mg PO Q6H PRN labetalol 100 mg See Protocol PO BID lancets (FreeStyle Lancets) BID As directed lisinopril 40 mg PO DAILY metformin 1,000 mg PO BID morphine 15 mg PO TID PRN naproxen 500 mg PO BID PRN nebulizers to use every 4 hours as needed for wheezing omeprazole 20 mg PO DAILY oxycodone 5 mg PO TID PRN prednisone 40 mg (2 x 20 mg) PO DAILY 5 days tamsulosin (Flomax) 0.4 mg PO DAILY 14 days valacyclovir 1 tab PO DAILY HPI HPI Comments History of Present Illness Details A 42 y/o female CAD, history of cardiac cath, uncontrolled hypertension, diabetes, chronic pain presents with with persistent acid reflux, c/o belly gets bloated- epigastric discomfort-typically after eating she says she has a pinched nerve went to ED- due to pain and hypertension- BP is always elevated. 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- She drinks fair amount of soda DM- not well controlled She has not have any nausea, vomiting, chest pain, headaches dizziness fever or chills [facility] Medical History Anemia Bilateral hand numbness Bilateral hand pain HSV (herpes simplex virus) infection Smoking TIA (transient ischemic attack) DJD (degenerative joint disease) GERD (gastroesophageal reflux disease) Asthma Obesity Diabetes mellitus HTN (hypertension) Surgical History H/O cardiac catheterization Hx of tubal ligation Hx of cholecystectomy Hx of appendectomy Hx of section Family History Mother Heart disease Diabetes Hypertension Hyperlipidemia Fibromyalgia Father No problems noted. Brother No problems noted. Brother No problems noted. Brother No problems noted. Sister Deep vein thrombosis Son No problems noted. Son No problems noted. Daughter Hypertension Daughter No problems noted. Maternal Aunt History of breast cancer Social History Household Members: Children Housing: Apartment Do you presently have visiting nurse or other home services: No Alcohol intake: current Alcohol intake frequency: holidays/special occasions only Patient Tobacco Use Status: Former Tobacco user Tobacco use type: Cigarette Cigarettes Per Day: 3 e-Cigarette/Vaping Use: Never Used Second Hand Smoke Exposure: Yes service: No Current occupational status: employed Cognitive needs: No Hearing needs: No Vision needs: Yes (glasses) Female Reproductive History Menstrual Age of Menarche: 12 Review of Systems Const All systems reviewed & are unremarkable except as noted in HPI and below Denies chills, Denies fever(s) and Denies headache(s) ENT Denies headache(s) Card Denies chest pain, Denies chest pain at rest, Denies irregular heart rhythm and Reports dyspnea on exertion Resp Reports dyspnea on exertion GI Reports bloating, Denies hematochezia, Reports heartburn, Denies nausea and Denies vomiting 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) Musc Reports back pain Neuro Denies headache(s) Psych Reports anxiety, Reports depression, Denies visual hallucinations and Denies hallucinations Physical Exam Vital Signs: Last Vital Signs Pulse 96 12/22/22 11:34 BP 189/102 H 12/22/22 11:34 BMI result Body Mass Index 33.9 Const General: cooperative, healthy appearing, comfortable and no acute distress Orientation/consciousness: patient oriented x3 Limitations: no limitations Eyes Sclerae: sclerae normal Resp Effort & Inspection: normal respiratory effort and able to speak in complete sentences Auscultation: rhonchi Cardio Other: Hypertensive Rate: regular rate Rhythm: regular rhythm Heart sounds: S1 normal heart sound present and S2 normal heart sound present GI Inspection: Yes obesity Palpation (GI): Soft to palpation and nontender Auscultation: normal bowel sounds Skin General skin exam: no rashes or lesions noted Neuro General: patient oriented x3 Extrem General: Yes full ROM Psych Speech and movement: Clear speech present Affect: Labile affect present Attitude: cooperative Thought content: Normal thought content present Results Reviewed Results Reviewed: 09/2027 CT/CT abdomen pelvis wo IV con IMPRESSION: As described above heterogeneous attenuation with several large areas in the left lobe of liver. This could possibly represent fatty change in the liver but underlying lesions could not be excluded. Liver is felt to be enlarged. Possible mild corrugation of the liver contour. Cirrhosis cannot be excluded. Recommend MRI of the abdomen to further evaluate pre and postcontrast. Otherwise findings are as described above. Some possible mild thickening at the level of the distal esophagus junction. Direct visualization would be recommended. Fleischner guidelines were followed. Assessment & Plan Assessment & Plan (1) GERD (gastroesophageal reflux disease): Comment: Drinking soda throughout visit-discussed carbonation/bloat Code(s): K21.9 - Gastro-esophageal reflux disease without esophagitis Plan: cut back on soda carafate- rtc UBT- (2) Bloating: Comment: reduce soda intake Code(s): R14.0 - Abdominal distension (gaseous) (3) H/O cardiac catheterization: Comment: 07/20/2021 showing normal coronary arteries Code(s): Z98.890 - Other specified postprocedural states Plan: Continue to follow cardiology workup (4) Anemia: Comment: Likely need EGD/colon-however undergoing cardiac workup Code(s): D64.9 - Anemia, unspecified (5) Abnormal CT of the abdomen: Comment: As described above heterogeneous attenuation with several large areas in the left lobe of liver. This could possibly represent fatty change in the liver but underlying lesions could not be excluded. Liver is felt to be enlarged. Possible mild corrugation of the liver contour. Cirrhosis cannot be excluded. Recommend MRI of the abdomen to further evaluate pre and postcontrast. Code(s): R93.5 - Abnormal findings on diagnostic imaging of other abdominal regions, including retroperitoneum Plan: pt marianne she did not complete MRI Plan Multiple comorbid illness- will get UBT Follow back with cardiology as recommended Medications: New sucralfate 1 g PO BID 4 weeks 56 tabs 0RF Patient Instructions: 42-year-old female CAD, anemia, referred with GERD presents with multiple GI and General complaints. She will begin Carafate 1 g b.i.d. Reflux precautions reviewed Will get HP UBT if positive will treat- await cardiac workup up prior to considering invasive eval A encouraged to follow through with recommendations Coding Level of Care Code Tele New Pt Level 4 (06749) Diagnoses GERD (gastroesophageal reflux disease) K21.9 Bloating R14.0 H/O cardiac catheterization Z98.[address] of the abdomen R93.5 Time Spent (min) 40
[2022-12-22 11:34] VITALS: BP 189/102; PULSE 96; BMI 33.9
== END 2022-12-22 12:21 | disposition home or self-care (01) ==
PROVIDERS: PCP Internal Medicine; Visit Provider Physician Assistant
DX: K21.9 Gastro-esophageal reflux disease without esophagitis (principal); R14.0 Abdominal distension (gaseous); Z98.890 Other specified postprocedural states; D64.9 Anemia, unspecified; R93.5 Abnormal findings on diagnostic imaging of other abdominal regions, including retroperitoneum
CPT/HCPCS: 99204

== ENCOUNTER → 2022-12-22 11:30 | Outpatient (BNVA) | payer OTHER, SELFPAY | PROVIDERS: PCP Internal Medicine; Visit Provider Physician Assistant ==

== ENCOUNTER 2023-01-19 09:55 | Outpatient (AMB) | payer OTHER, SELFPAY ==
--- NOTE | 2023-01-19 10:01 | MHC.OFFVIS ---
Intake Vital Signs 01/19/23 10:03 Height 5 ft 2 in Weight 185 lb 3.013 oz BMI 33.9 Blood Pressure Location Lt brachial Position Sitting Intake Visit Reasons: 4 week follow up needs breath test same day Intake Note: Amy presents in the office as a 4 week follow up. CC: She was wondering why she is here. She states that she gets cramping in her stomach and acid reflux with nausea. Allergies Iodinated Contrast Media Allergy (Intermediate, Verified 01/19/23 10:03) Anaphylaxis latex [Latex] Allergy (Unknown, Verified 01/19/23 10:03) RASH HPI HPI Comments History of Present Illness Details A 42 y/o feamle f/u for HP UBT- acid reflux Sent for MRI -previously to f/u on CT- she was unable to complete- she refuses any further attempt she is seeing cardiology- w/u not complete- sees in January. Recent dx severe KALLIE- no mask yet- No other GI or general complaints PFSH Medical History (Updated 01/26/23 @ 12:06 by Krystal Conde PA-C) Anemia Bilateral hand numbness Bilateral hand pain HSV (herpes simplex virus) infection Smoking TIA (transient ischemic attack) DJD (degenerative joint disease) GERD (gastroesophageal reflux disease) Asthma Obesity Diabetes mellitus HTN (hypertension) Surgical History H/O cardiac catheterization Hx of tubal ligation Hx of cholecystectomy Hx of appendectomy Hx of section Family History Mother Heart disease Diabetes Hypertension Hyperlipidemia Fibromyalgia Father No problems noted. Brother No problems noted. Brother No problems noted. Brother No problems noted. Sister Deep vein thrombosis Son No problems noted. Son No problems noted. Daughter Hypertension Daughter No problems noted. Maternal Aunt History of breast cancer Social History Household Members: Children Housing: Apartment Do you presently have visiting nurse or other home services: No Alcohol intake: current Alcohol intake frequency: holidays/special occasions only Patient Tobacco Use Status: Former Tobacco user Tobacco use type: Cigarette Cigarettes Per Day: 3 e-Cigarette/Vaping Use: Never Used Second Hand Smoke Exposure: Yes service: No Current occupational status: employed Cognitive needs: No Hearing needs: No Vision needs: Yes (glasses) Female Reproductive History Menstrual Age of Menarche: 12 Review of Systems Const All systems reviewed & are unremarkable except as noted in HPI and below Card Denies chest pain and Denies dyspnea Resp Denies dyspnea GI Reports heartburn Physical Exam Vital Signs: BMI result Body Mass Index 33.9 Const General: cooperative, healthy appearing, comfortable and no acute distress Orientation/consciousness: patient oriented x3 Resp Effort & Inspection: normal respiratory effort and able to speak in complete sentences Auscultation: clear to auscultation bilaterally, no rhonchi and no wheezes Cardio Rate: regular rate Rhythm: regular rhythm Heart sounds: S1 normal heart sound present, S2 normal heart sound present and no murmurs GI Palpation (GI): Soft to palpation and nontender Auscultation: normal bowel sounds Skin General skin exam: no rashes or lesions noted Neuro General: patient oriented x3 Extrem General: Yes full ROM Psych Mental Status: mental status grossly normal Speech and movement: Clear speech present Attitude: cooperative Thought process: Normal thought process present Thought content: Normal thought content present Results Reviewed Results Reviewed: 12/2022 Cardiac studies reviewed. Echocardiogram 2020 with LVEF of 55-60%, moderate LVH, moderate diastolic dysfunction with elevated filling pressures and mild mitral regurgitation. Cardiac catheterization from 2021 shows normal coronary arteries. Overall, poorly controlled hypertension mainly due to noncompliance. Even today she did take her medications. We discussed about the importance of taking blood pressure medications regularly and consequences from not taking them including issues like stroke. She understands. It seems she does have a nurse navigator for home blood pressure and we will ensure this is being followed up regularly. Will also send another home blood pressure cuff. For med regimen, she is on amlodipine, hydrochlorothiazide, lisinopril, labetalol. No changes with these today unless compliance established and blood pressure is still high. Will also get in lab sleep study to look for underlying sleep apnea. Follow-up will be scheduled. Orders: Orders RT PSG in-lab sleep study Today G47.33 - Obstructive sleep apnea (adult) (pediatric) Assessment & Plan Assessment & Plan (1) Overweight: Code(s): E66.3 - Overweight (2) Abnormal CT of the abdomen: Comment: As described above heterogeneous attenuation with several large areas in the left lobe of liver. This could possibly represent fatty change in the liver but underlying lesions could not be excluded. Liver is felt to be enlarged. Possible mild corrugation of the liver contour. Cirrhosis cannot be excluded. Recommend MRI of the abdomen to further evaluate pre and postcontrast. Code(s): R93.5 - Abnormal findings on diagnostic imaging of other abdominal regions, including retroperitoneum (3) GERD (gastroesophageal reflux disease): Comment: Will check H pylori Code(s): K21.9 - Gastro-esophageal reflux disease without esophagitis Plan: HP UBT- pending meanwhile pantoprazole 20 mg (4) H. pylori infection: Comment: Recurrent H pylori Code(s): A04.8 - Other specified bacterial intestinal infections Plan: Will get FREDERIC (5) Severe sleep apnea: Code(s): G47.30 - Sleep apnea, unspecified Plan: Seeing Pulmonary (6) Anemia: Comment: Likely need EGD/colon-however undergoing cardiac workup Code(s): D64.9 - Anemia, unspecified Plan: Iron deficiency anemia, CAD-noncompliant unsure how to proceed given her comorbidities Further discuss with MD Orders: Orders H Pylori Breath Test 01/19/23 A04.8 - Other specified bacterial intestinal infections Referrals Bariatric Surgery Referral E66.01 - Morbid (severe) obesity due to excess calories, E66.3 - Overweight, F17.200 - Nicotine dependence, unspecified, uncomplicated, G47.30 - Sleep apnea, unspecified, I10 - Essential (primary) hypertension, I51.89 - Other ill-defined heart diseases, Z98.890 - Other specified postprocedural states Medications: Changed From omeprazole 20 mg PO DAILY 20 caps 0RF To omeprazole 20 mg PO BID 30 days 60 caps 2RF Patient Instructions: Iron deficiency anemia, CAD-noncompliant unsure how to proceed given her comorbidities Further discuss with MD Coding Level of Care Code Est Pt Level 4 (77351) Diagnoses Overweight E66.[address] of the abdomen R93.5 GERD (gastroesophageal reflux disease) K21.9 H. pylori infection A04.8 Severe sleep apnea G47.30 Anemia D64.9 Time Spent (min) 40
[2023-01-19 10:03] VITALS: BMI 33.9
== END 2023-01-19 11:08 | disposition home or self-care (01) ==
PROVIDERS: PCP Internal Medicine; Visit Provider Physician Assistant
DX: E66.3 Overweight (principal); R93.5 Abnormal findings on diagnostic imaging of other abdominal regions, including retroperitoneum; K21.9 Gastro-esophageal reflux disease without esophagitis; A04.8 Other specified bacterial intestinal infections; G47.30 Sleep apnea, unspecified; D64.9 Anemia, unspecified
CPT/HCPCS: 99214

== ENCOUNTER 2023-01-19 09:55 | Outpatient (REF) | payer OTHER, SELFPAY ==
[2023-01-21 13:22] LABS: H Pylori Breath Test Positive (Negative)
== END 2023-01-19 09:56 | disposition home or self-care (01) ==
LOC: HO.LNP 09:55
PROVIDERS: PCP Internal Medicine; Visit Provider Physician Assistant
DX: A04.8 Other specified bacterial intestinal infections (principal); K21.9 Gastro-esophageal reflux disease without esophagitis; R93.5 Abnormal findings on diagnostic imaging of other abdominal regions, including retroperitoneum; G47.30 Sleep apnea, unspecified; D64.9 Anemia, unspecified; E66.01 Morbid (severe) obesity due to excess calories; F17.200 Nicotine dependence, unspecified, uncomplicated; I10 Essential (primary) hypertension; I51.89 Other ill-defined heart diseases; Z98.890 Other specified postprocedural states
CPT/HCPCS: 83013; 99212

== ENCOUNTER 2023-01-30 09:15 | Outpatient (AMB) | payer OTHER, SELFPAY ==
[2023-01-30 09:17] VITALS: BP 154/102; PULSE 106; BMI 34.2
--- NOTE | 2023-01-30 09:17 | MHC.OFFVIS ---
Intake Vital Signs 01/30/23 09:17 Height 5 ft 2 in Weight 187 lb 2.759 oz BMI 34.2 BP 154/102 H Blood Pressure Location Lt brachial Position Sitting Pulse 106 H Pulse Source Pulse Oximeter Intake Visit Reasons: Dm2 -Confirmed Intake Note: New patient to Dr. Chapin present today for Diabetes Mellitus. Previously followed by PCP. Last Diabetic Eye exam: 06/2021 Last Podiatry Visit: None Random Glucose: 350 mg/dl HgA1C: 12.0% Oxyhydrogen Welder Required: No Accompanied by: Daughter Allergies Iodinated Contrast Media Allergy (Intermediate, Verified 01/30/23 09:29) Anaphylaxis latex [Latex] Allergy (Unknown, Verified 01/30/23 09:29) RASH HPI HPI Comments History of Present Illness Details 42 YO F who is seen in consultation mother for T2DM at the request of PCP. Initially diagnosed with T2DM in 3 yrs . Never saw endo before Was initially started on treatment with metformin . Current regimen metformin 1000 mg BID . Unfortunately, patient did not bring glucometer or log book to visit Most recent A1C [], [down] from prior [] on []. Family history of T2DM in mother , grandmother . Has eyes checked yearly, last eye exam June 2022 , denies retinopathy. Denies neuropathy, not sees podiatry. Has nephropathy, on BONY/ARB. Has HLD,Not on statin. Last LDL [] as measured on []. Has CAD. Not Had diabetes education. [facility] Medical History Anemia Bilateral hand numbness Bilateral hand pain HSV (herpes simplex virus) infection Smoking TIA (transient ischemic attack) DJD (degenerative joint disease) GERD (gastroesophageal reflux disease) Asthma Obesity Diabetes mellitus HTN (hypertension) Surgical History H/O cardiac catheterization Hx of tubal ligation Hx of cholecystectomy Hx of appendectomy Hx of section Family History Mother Heart disease Diabetes Hypertension Hyperlipidemia Fibromyalgia Father No problems noted. Brother No problems noted. Brother No problems noted. Brother No problems noted. Sister Deep vein thrombosis Son No problems noted. Son No problems noted. Daughter Hypertension Daughter No problems noted. Maternal Aunt History of breast cancer Social History Household Members: Children Housing: Apartment Do you presently have visiting nurse or other home services: No Alcohol intake: current Alcohol intake frequency: holidays/special occasions only Patient Tobacco Use Status: Former Tobacco user Tobacco use type: Cigarette Cigarettes Per Day: 3 e-Cigarette/Vaping Use: Never Used Second Hand Smoke Exposure: Yes service: No Current occupational status: employed Cognitive needs: No Hearing needs: No Vision needs: Yes (glasses) Female Reproductive History Menstrual Age of Menarche: 12 Physical Exam Absence of Cushingoid features. Absence of acromegalic features. Neck exam reveals nl size thyroid about 15 gms. No thyroid nodules palpable. No carotid bruits present. Lungs CTA. Heart S1 S2, Reg R/R. No M/R/ G. Skin exam reveals absence of vitiligo or acanthosis nigricans. Abdominal exam reveals Soft NT/ND with NA BS. No organomegaly present. Neck Other: . Extrem Other: Visual exam of foot performed. No ulcerations or open lesions. No onchomycosis, no callouses.Pulses 2 + distally Sensation intact to monofilament exam. Vibratory sensation sensed is intact with 128 Hz tuning fork Results AMB Hemoglobin A1c AMB Hemoglobin A1c 12.0 % Last Edit by Gay Camp on 01/30/23 09:37 Assessment & Plan Assessment & Plan (1) Type 2 diabetes mellitus with unspecified complications: Code(s): E11.8 - Type 2 diabetes mellitus with unspecified complications Plan: This is a 42-year-old female with history of type 2 diabetes being treated metformin with glycemic control and known microvascular and macrovascular complications namely CAD, cardiomyopathy and microalbumin. The plan is to initiate insulin 20 units of Lantus and 6 units of Humalog prior to meals. Will also initiate a G LP 1 namely Ozempic 0.25 mg Q weekly and titrate as tolerated. Patient will see inclusion paraeducator today to learn insulin is duration Patient was instructed to check her point cares pre and post meals. Will make an appoint with the coagulating drying supervisor. Could consider initiation of an SGlT 2 inhibitor in future. Went over with patient in detail the correlation of poor glycemic control to development and progression of complication. Also referred patient to furnace setter Orders: Orders AMB Hemoglobin A1c Today E11.8 - Type 2 diabetes mellitus with unspecified complications Referrals Nutrition/Dietitian Referral E11.8 - Type 2 diabetes mellitus with unspecified complications Diabetes Education Referral E11.8 - Type 2 diabetes mellitus with unspecified complications Podiatry Referral E11.8 - Type 2 diabetes mellitus with unspecified complications Medications: New insulin lispro (Humalog KwikPen (U-100) Insulin) 6 units (0.06 mL) subcut TID 15 mL 4RF dulaglutide (Trulicity) 0.75 mg (0.5 mL) subcut QWEEK 2 mL 4RF pen needle, diabetic (Comfort EZ Pen [place]) As directed injects 4X/day 100 ea 4RF insulin glargine (Lantus Solostar U-100 Insulin) 20 units (0.2 mL) subcut BID 15 mL 4RF Coding Level of Care Code New Pt Level 5 (66140) Diagnoses Type 2 diabetes mellitus with unspecified complications E11.8 Time Spent (min) 60 Comment A total of 60 minutes was spent reviewing chart, seeing patient and dictating
[2023-01-30 09:30] LABS: Glucose, Whole Blood 350 mg/dL (60-115)
== END 2023-01-30 10:07 | disposition home or self-care (01) ==
PROVIDERS: PCP Internal Medicine; Visit Provider Internal Medicine Endocrinology, Diabetes & Metabolism
DX: E11.59 Type 2 diabetes mellitus with other circulatory complications (principal); E11.29 Type 2 diabetes mellitus with other diabetic kidney complication; Z79.84 Long term (current) use of oral hypoglycemic drugs
CPT/HCPCS: 99205

== ENCOUNTER → 2023-01-30 09:15 | Outpatient (BNVA) | payer OTHER, SELFPAY | PROVIDERS: Visit Provider Internal Medicine Endocrinology, Diabetes & Metabolism | DX: E11.8 Type 2 diabetes mellitus with unspecified complications (principal); Z79.84 Long term (current) use of oral hypoglycemic drugs | CPT/HCPCS: 82947; 83036; 99202; 99211 ==

== ENCOUNTER 2023-01-30 11:03 | Outpatient (AMB) | payer OTHER, SELFPAY ==
--- NOTE | 2023-01-30 13:37 | A.OFFVIS_ITS ---
Intake Intake Visit Reasons: dm Housing Property Manager Required: No Accompanied by: Daughter Allergies Iodinated Contrast Media Allergy (Intermediate, Verified 01/30/23 09:29) Anaphylaxis latex [Latex] Allergy (Unknown, Verified 01/30/23 09:29) RASH HPI Comprehensive Diabetes Asmnt Most Recent Diabetes Results: Creatinine 0.77 mg/dL (0.5-1.4) 12/15/22 Blood Urea Nitrogen 8 mg/dL (9-16) L 12/15/22 Sodium 135 mmol/L (135-145) 12/15/22 Potassium 3.6 mmol/L (3.3-5.1) 12/15/22 Chloride 104 mmol/L (96-108) 12/15/22 Carbon Dioxide 22 mmol/L (22-29) 12/15/22 Calcium 9.1 mg/dL (8.4-10.2) 12/15/22 AST 18 U/L (5-31) 12/15/22 ALT 18 U/L (0-31) 12/15/22 Total Protein 7.5 g/dL (6.5-8.0) 12/15/22 Albumin 3.7 g/dL (3.5-5.0) 12/15/22 [facility] Medical History Anemia Bilateral hand numbness Bilateral hand pain HSV (herpes simplex virus) infection Smoking TIA (transient ischemic attack) DJD (degenerative joint disease) GERD (gastroesophageal reflux disease) Asthma Obesity Diabetes mellitus HTN (hypertension) Surgical History H/O cardiac catheterization Hx of tubal ligation Hx of cholecystectomy Hx of appendectomy Hx of section Family History Mother Heart disease Diabetes Hypertension Hyperlipidemia Fibromyalgia Father No problems noted. Brother No problems noted. Brother No problems noted. Brother No problems noted. Sister Deep vein thrombosis Son No problems noted. Son No problems noted. Daughter Hypertension Daughter No problems noted. Maternal Aunt History of breast cancer Social History Household Members: Children Housing: Apartment Do you presently have visiting nurse or other home services: No Alcohol intake: current Alcohol intake frequency: holidays/special occasions only Patient Tobacco Use Status: Former Tobacco user Tobacco use type: Cigarette Cigarettes Per Day: 3 e-Cigarette/Vaping Use: Never Used Second Hand Smoke Exposure: Yes service: No Current occupational status: employed Cognitive needs: No Hearing needs: No Vision needs: Yes (glasses) Female Reproductive History Menstrual Age of Menarche: 12 Assessment & Plan Assessment & Plan (1) Type 2 diabetes mellitus with unspecified complications: Code(s): E11.8 - Type 2 diabetes mellitus with unspecified complications Plan: Insulin/Incretin?Mimetic Education visit patient will be starting Lantus 20 units daily Humalog 6 units before meals Trulicity 0.75 mg weekly Patient Education: Patient was instructed and provided with demonstration of the following: Insulin action and Incretin Mimetics medication storage how to set up medication pen/or syringe and vial Handwashing insulin injection site rotation Site rotation recognizing hypertrophy Testing blood glucose Removing and disposing needle from insulin pen Safe disposal of sharps Target blood sugar Signs/ symptoms/treatment of hypoglycemia/hyperglycemia expiration of open insulin pen Patient verbalized understanding of education provided and was able to demonstrate proper use of inject into injection pillow Reviewed rule of 15s to treat glucose under 70 mg/dL All questions were answered and patient was advised to contact the office with any questions or concerns. Patient Instructions: DIABETES PROBLEMS HOMECARE INSTRUCTIONS Hypo instructions ? When first signs of insulin reaction occur, immediately drink orange juice or cola, or suck on a sugar cube, but only if the person is conscious. ? Person with diabetes should continue taking insulin when ill, unless he/she is not able to eat.? Regularly check blood sugar or urine for sugar and acetone during illness. ? Exercise regularly. ? Pay special attention to the feet.? Avoid cuts, sores, blisters, ill- fitting shoes, or going barefoot.? Promptly treat injuries to the feet. ? Take medications as directed by physician. ? Drink extra water or noncaffeinated, nonsugared drinks to prevented hydration. Signs and symptoms of low blood sugar (happen quickly) Each person's reaction to low blood sugar is different. Learn your own signs and symptoms of when your blood sugar is low. Taking time to write these symptoms down may help you learn your own symptoms of when your blood sugar is low. From milder, more common indicators to most severe, signs and symptoms of low blood sugar include: Feeling shaky Being nervous or anxious Sweating, chills and clamminess Irritability or impatience Confusion Fast heartbeat Feeling lightheaded or dizzy Hunger Nausea Color draining from the skin (pallor) Feeling Sleepy Feeling weak or having no energy Blurred/impaired vision Tingling or numbness in the lips, tongue, or cheeks Headaches Coordination problems, clumsiness Hypoglycemia or blood glucose under 70 use the rule of 15's: If you have your blood glucose meter test your blood glucose, if you do not have your meter still follow below instruction: Keep quick-sugar foods with you at all times.? Take 15 grams of fast acting carbohydrates. Examples are 4 ounces of fruit juice or regular soda pop, 8 ounces fat-free milk, 1 tablespoon of table sugar, honey or corn syrup, jam, one miniature box of raisins, 7-8 gumdrops or Life Savers candy, 4 glucose tablets, and glucose gel.? Retest blood glucose in 15 minutes, if blood glucose is still under ,repeat rule of 15's. If blood glucose is under 50, take 30 grams of fast acting carbohydrates If you are having hypoglycemia, or insulin reaction, more that a few times a week, call MD or conservation educator F/U BG check follow-up with conservation educator in 1 week Coding Level of Care Code Est Pt Level 1 (09099) Diagnoses Type 2 diabetes mellitus with unspecified complications E11.8 Results AMB Hemoglobin A1c AMB Hemoglobin A1c 12.0 % Last Edit by Gay Camp on 01/30/23 09:37
== END 2023-01-30 12:01 ==
PROVIDERS: PCP Internal Medicine; Visit Provider Registered Nurse Diabetes Educator
DX: E11.8 Type 2 diabetes mellitus with unspecified complications (principal)

== ENCOUNTER 2023-02-13 14:38 | Outpatient (AMB) | payer OTHER, SELFPAY ==
--- NOTE | 2023-02-13 14:55 | A.OFFVIS_ITS ---
Intake Intake Visit Reasons: dm Staffing And Scheduling Coordinator Required: No Accompanied by: Daughter Allergies Iodinated Contrast Media Allergy (Intermediate, Verified 01/30/23 09:29) Anaphylaxis latex [Latex] Allergy (Unknown, Verified 01/30/23 09:29) RASH HPI Comprehensive Diabetes Asmnt Most Recent Diabetes Results: Creatinine 0.77 mg/dL (0.5-1.4) 12/15/22 Blood Urea Nitrogen 8 mg/dL (9-16) L 12/15/22 Sodium 135 mmol/L (135-145) 12/15/22 Potassium 3.6 mmol/L (3.3-5.1) 12/15/22 Chloride 104 mmol/L (96-108) 12/15/22 Carbon Dioxide 22 mmol/L (22-29) 12/15/22 Calcium 9.1 mg/dL (8.4-10.2) 12/15/22 AST 18 U/L (5-31) 12/15/22 ALT 18 U/L (0-31) 12/15/22 Total Protein 7.5 g/dL (6.5-8.0) 12/15/22 Albumin 3.7 g/dL (3.5-5.0) 12/15/22 [facility] Medical History Anemia Bilateral hand numbness Bilateral hand pain HSV (herpes simplex virus) infection Smoking TIA (transient ischemic attack) DJD (degenerative joint disease) GERD (gastroesophageal reflux disease) Asthma Obesity Diabetes mellitus HTN (hypertension) Surgical History H/O cardiac catheterization Hx of tubal ligation Hx of cholecystectomy Hx of appendectomy Hx of section Family History Mother Heart disease Diabetes Hypertension Hyperlipidemia Fibromyalgia Father No problems noted. Brother No problems noted. Brother No problems noted. Brother No problems noted. Sister Deep vein thrombosis Son No problems noted. Son No problems noted. Daughter Hypertension Daughter No problems noted. Maternal Aunt History of breast cancer Social History Household Members: Children Housing: Apartment Do you presently have visiting nurse or other home services: No Alcohol intake: current Alcohol intake frequency: holidays/special occasions only Patient Tobacco Use Status: Former Tobacco user Tobacco use type: Cigarette Cigarettes Per Day: 3 e-Cigarette/Vaping Use: Never Used Second Hand Smoke Exposure: Yes service: No Current occupational status: employed Cognitive needs: No Hearing needs: No Vision needs: Yes (glasses) Female Reproductive History Menstrual Age of Menarche: 12 Assessment & Plan Assessment & Plan (1) Type 2 diabetes mellitus with unspecified complications: Code(s): E11.8 - Type 2 diabetes mellitus with unspecified complications Plan: Patient at visit to set up an insert Chiquita 2 sensor Instructed patient sensors water proof you can shower, or swim do not submerge sensor in water for over 30 minutes Is sensor falls off cannot put back in you need to replace sensor, customer service number given to patient for sensor replacement Sensor placed on the back of R arm Patient left visit with sensor in warmup Reviewed how to interpret trend arrows Reminded patient that to check finger sticks if symptoms do not match sensor reading. Discussed lag time between finger stick and sensor data.? Instructed patient she should always keep blood glucometer for backup testing if needed Reviewed delay of CGM from fingersticks Reminded pt that if symptoms do not match sensor still needs to check fingersticks. Patient Instructions: Patient instruction: CGM provides information on blood glucose control throughout the day, including hyperglycemia and hypoglycemia. ? Continue to monitor blood glucose as instructed. Follow nutrition guidelines provided. Report any discomfort promptly to health care provider. ?Stay well-hydrated. You can bathe ,shower, swim and exercise while wearing the glucose sensor. Do not submerge glucose sensor in water for more than 30 minutes. Coding Level of Care Code Est Pt Level 1 (06265) Diagnoses Type 2 diabetes mellitus with unspecified complications E11.8
== END 2023-02-13 14:57 | disposition home or self-care (01) ==
PROVIDERS: PCP Internal Medicine; Visit Provider Registered Nurse Diabetes Educator
DX: E11.8 Type 2 diabetes mellitus with unspecified complications (principal)

== ENCOUNTER → 2023-02-13 14:38 | Outpatient (BNVA) | payer OTHER, SELFPAY | PROVIDERS: PCP Internal Medicine; Visit Provider Registered Nurse Diabetes Educator | DX: E11.8 Type 2 diabetes mellitus with unspecified complications (principal) | CPT/HCPCS: 99211 ==

== ENCOUNTER 2023-02-23 11:18 | Outpatient (AMB) | payer OTHER, SELFPAY ==
[2023-02-23 11:24] VITALS: BP 190/104; PULSE 93; BMI 34.4
--- NOTE | 2023-02-23 11:24 | A.OFFVIS_ITS ---
Intake Vital Signs 02/23/23 11:24 Height 5 ft 2 in Weight 188 lb 4.396 oz BMI 34.4 BP 190/104 H Pulse 93 Intake Visit Reasons: 3 mth f/up in lab sleep study HS [employer] Professor Required: No Allergies Iodinated Contrast Media Allergy (Intermediate, Verified 02/23/23 11:26) Anaphylaxis latex [Latex] Allergy (Unknown, Verified 02/23/23 11:26) RASH Medication List - Last Reconciled 02/23/23 by RAMILA Chen albuterol sulfate 0.63 mg (3 mL) inhalation Q4-6H PRN albuterol sulfate 90 mcg/actuation 2 inhalations inhalation QID PRN albuterol sulfate mg inhalation Q4H PRN albuterol sulfate 90 mcg/actuation 2 inhalations inhalation Q4-6H PRN alcohol swabs (Alcohol Pads) Inject 4 times a day topically; amlodipine 10 mg PO DAILY aspirin 81 mg PO DAILY blood pressure monitor As directed blood sugar diagnostic (FreeStyle Lite Strips) BID As directed blood sugar diagnostic (FreeStyle Lite Strips) As directed tests 4 X/day blood-glucose meter (FreeStyle [place] kit) As directed blood-glucose meter (FreeStyle Lite Meter kit) As directed cyclobenzaprine 10 mg PO TID PRN flash glucose scanning reader (FreeStyle [place] 2 [place]) As directed flash glucose sensor (FreeStyle Chiquita 2 Sensor kit) As directed change every 14 days gabapentin 300 mg PO BEDTIME 14 days hydrochlorothiazide 25 mg PO DAILY ibuprofen 600 mg PO Q6H PRN insulin glargine (Lantus Solostar U-100 Insulin) 20 units (0.2 mL) subcut DAILY insulin lispro (Humalog KwikPen (U-100) Insulin) 6 units (0.06 mL) subcut TID labetalol 100 mg See Protocol PO BID lancets (FreeStyle Lancets) BID As directed lancets (FreeStyle Lancets) As directed tests 4 X/day lisinopril 40 mg PO DAILY metformin 1,000 mg PO BID naproxen 500 mg PO BID PRN nebulizers to use every 4 hours as needed for wheezing omeprazole 20 mg PO BID pen needle, diabetic (Comfort EZ Pen [place]) As directed injects 4X/day prednisone 40 mg (2 x 20 mg) PO DAILY 5 days sucralfate 1 g PO BID tamsulosin (Flomax) 0.4 mg PO DAILY 14 days [facility] Medical History Anemia Bilateral hand numbness Bilateral hand pain HSV (herpes simplex virus) infection Smoking TIA (transient ischemic attack) DJD (degenerative joint disease) GERD (gastroesophageal reflux disease) Asthma Obesity Diabetes mellitus HTN (hypertension) Surgical History H/O cardiac catheterization Hx of tubal ligation Hx of cholecystectomy Hx of appendectomy Hx of section Family History Mother Heart disease Diabetes Hypertension Hyperlipidemia Fibromyalgia Father No problems noted. Brother No problems noted. Brother No problems noted. Brother No problems noted. Sister Deep vein thrombosis Son No problems noted. Son No problems noted. Daughter Hypertension Daughter No problems noted. Maternal Aunt History of breast cancer Social History Household Members: Children Housing: Apartment Do you presently have visiting nurse or other home services: No Alcohol intake: current Alcohol intake frequency: holidays/special occasions only Comment: Patient sleeping Patient Tobacco Use Status: Former Tobacco user Tobacco use type: Cigarette Cigarettes Per Day: 3 e-Cigarette/Vaping Use: Never Used Second Hand Smoke Exposure: Yes service: No Current occupational status: employed Cognitive needs: No Hearing needs: No Vision needs: Yes (glasses) Female Reproductive History Menstrual Age of Menarche: 12 Review of Systems Const All systems reviewed & are unremarkable except as noted in HPI and below ENT Denies dizziness Card Details: chest tightness Denies chest pain, Denies chest pain at rest, Denies chest pain with activity, Denies rapid heart rate, Denies pedal edema, Denies edema, Denies leg edema, Denies lightheadedness, Denies palpitations, Reports dyspnea, Reports dyspnea on exertion and Denies orthopnea Resp Denies cough, Reports dyspnea and Reports dyspnea on exertion GI Denies hematochezia and Denies change in stool character Musc Denies abnormal gait, Denies limited range of motion, Denies muscle cramps, Denies muscle weakness, Denies numbness, Denies radiating pain into limb, Denies stiffness and Denies tingling Neuro Denies abnormal gait, Denies dizziness, Denies numbness and Denies tingling Endo Denies palpitations Physical Exam Vital Signs: Last Vital Signs Pulse 93 02/23/23 11:24 BP 190/104 H 02/23/23 11:24 BMI result Body Mass Index 34.4 Const General: cooperative, healthy appearing, comfortable and no acute distress Orientation/consciousness: patient oriented x3 Neck Neck: Yes normal visual inspection Resp Effort & Inspection: normal respiratory effort Auscultation: clear to auscultation bilaterally, no crackles, no rales, no rhonchi and no wheezes Cardio Jugular venous distension: no JVD Rate: regular rate Rhythm: regular rhythm Heart sounds: S1 normal heart sound present, S2 normal heart sound present, no murmurs and no rubs Neuro General: patient oriented x3 Extrem General: Yes normal to inspection, No no pedal edema and No calf tenderness Psych Appearance: grossly normal Mental Status: mental status grossly normal Speech and movement: Normal speech and movement present Office Procedures EKG Details: Today, read by me, SR, septal Q, ST/ T wave abn, which has been present on prior EKGs as well, rate 93 [id number], Complete Assessment & Plan Assessment & Plan (1) Uncontrolled hypertension: Code(s): I10 - Essential (primary) hypertension Plan: History of hypertension, uncontrolled at times with issues of noncompliance. Has had elevated troponins in past. She did undergo a nuclear stress test on 05/03/2021 which was equivocal for small mild distal septal ischemia. Echocardiogram from 09/04/2020 showed EF 55-60%, moderate LVH, moderate diastolic dysfunction with increased filling pressures, mild MR. A cardiac catheterization was done on 07/20/2021 showing normal coronary arteries. She did have a sleep study done for 12/28/2021 showing severe mixed sleep apnea. She was referred to pulmonology and was no-show for her consultation visit. Today she reports that her asthma has been acting up and she has been doing updraft every 4 hours at home. She feels tightness in her chest. Her blood pressure is very elevated today. No headache or vision changes. She tells me she did take her medications this morning. EKG done today showing sinus rhythm with ST and T-wave abnormality in the lateral leads. This has been seen on prior EKGs as well. No significant changes overall noted. Reviewed with Dr. Owen. Brandyn buitrago declines ER evaluation. Meds reviewed and will increase labetalol dose to 200 mg b.i.d.. Emergency care if she develops concerning symptoms of chest pain, headache, vision change. Strict importance of med compliance reviewed with her. Reviewed low-salt diet. Patient states she has been taking her meds as directed recently. (2) Abnormal EKG: Code(s): R94.31 - Abnormal electrocardiogram [ECG] [EKG] Plan: As above. She does have moderate LVH which could be contributing to repo larization abnormality. She is known to have normal coronary arteries (3) LVH (left ventricular hypertrophy): Code(s): I51.7 - Cardiomegaly Plan: As above (4) Severe sleep apnea: Code(s): G47.30 - Sleep apnea, unspecified Plan: Pulmonology referral already made. She missed her appointment. She tells me it has been rescheduled till March. Ordered a sleep study with CPAP titration. (5) H/O cardiac catheterization: Comment: 07/20/2021 showing normal coronary arteries Code(s): Z98.890 - Other specified postprocedural states Plan: As above Orders: Orders RT PSG in-lab sleep titration Today E66.3 - Overweight, G47.30 - Sleep apnea, unspecified Medications: New labetalol 200 mg PO BID 60 tabs 5RF Patient Instructions: Time spent on chart review, documentation, interview, assessment Coding Level of Care Code Est Pt Level 4 (68213) Diagnoses Uncontrolled hypertension I10 Abnormal EKG R94.31 LVH (left ventricular hypertrophy) I51.7 Severe sleep apnea G47.30 H/O cardiac catheterization Z98.890 CPT Codes EKG - CPT: 22632-[id number], Complete ([id number]) Time Spent (min) 28
== END 2023-02-23 12:00 | disposition home or self-care (01) ==
PROVIDERS: PCP Internal Medicine; Visit Provider Nurse Practitioner Family
DX: I10 Essential (primary) hypertension (principal); R94.31 Abnormal electrocardiogram [ECG] [EKG]; I51.7 Cardiomegaly; G47.30 Sleep apnea, unspecified; Z98.890 Other specified postprocedural states
CPT/HCPCS: 93010; 99214

== ENCOUNTER → 2023-02-23 11:18 | Outpatient (BNVA) | payer OTHER, SELFPAY | PROVIDERS: PCP Internal Medicine; Visit Provider Nurse Practitioner Family | DX: I51.7 Cardiomegaly (principal); I10 Essential (primary) hypertension; G47.30 Sleep apnea, unspecified; R94.31 Abnormal electrocardiogram [ECG] [EKG]; Z98.890 Other specified postprocedural states | CPT/HCPCS: 93005; 99212 ==

== ENCOUNTER 2023-03-01 08:57 | Day surgery (SDC) | payer OTHER, SELFPAY ==
--- NOTE | 2023-02-28 11:46 | HO.ANESPROP2 ---
Documented by User: Karla Reyes NP 02/28/23 12:03 HPI - Anesthesia Eval Consult details Narrative: 42yo F for Upper Endoscopy Follows [facility] [place]. BP uncontrolled at 02/23/2023 office visit. Labetolol increased. Also, increased pulmonary symptoms. (Updraft ~ Q4 hours) Unable to reach by phone for respiratory status update. Med noncompliance. A1C 12 with recent insulin adjustment. [facility] Active Problems Active Problems: All Active Problems (Updated 01/26/23 @ 12:06 by Krystal Conde PA-C) Overweight (Acute) Severe sleep apnea (Acute) Abnormal CT of the abdomen (Acute) Bloating (Acute) LVH (left ventricular hypertrophy) (Acute) Back pain of lumbar region with sciatica (Acute) Lumbar pain (Acute) Hypomagnesemia (Acute) Endometrial polyp (Acute) Vaginal itching (Acute) UTI (urinary tract infection) (Acute) Lumbar strain (Acute) ROSEMARY positive (Acute) Anemia (Acute) Bilateral hand numbness (Acute) Bilateral hand pain (Acute) H/O cardiac catheterization (Acute) Smoking (Acute) Dysmenorrhea (Acute) Urinary incontinence (Acute) Diastolic dysfunction (Acute) Morbid obesity (Acute) Type 2 diabetes mellitus with unspecified complications (Acute) Anemia (Acute) Vitamin B12 deficiency (Acute) Vitamin D deficiency (Acute) Moderate episode of recurrent major depressive disorder (Acute) TIA (transient ischemic attack) (Acute) GERD (gastroesophageal reflux disease) (Acute) Asthma (Acute) HTN (hypertension) (Acute) Xanthelasma (Acute) History of cholecystectomy (Acute) History of appendectomy (Acute) Urinary calculi (Acute) Chronic headaches (Acute) Past Medical History Medical History Anemia Bilateral hand numbness Bilateral hand pain HSV (herpes simplex virus) infection Smoking TIA (transient ischemic attack) DJD (degenerative joint disease) GERD (gastroesophageal reflux disease) Asthma Obesity Diabetes mellitus HTN (hypertension) Family History Family History Mother Heart disease Diabetes Hypertension Hyperlipidemia Fibromyalgia Father No problems noted. Brother No problems noted. Brother No problems noted. Brother No problems noted. Sister Deep vein thrombosis Son No problems noted. Son No problems noted. Daughter Hypertension Daughter No problems noted. Maternal Aunt History of breast cancer Surgical History Surgical History H/O cardiac catheterization Hx of tubal ligation Hx of cholecystectomy Hx of appendectomy Hx of section Social History Social History Household Members: Children Housing: Apartment Do you presently have visiting nurse or other home services: No Alcohol intake: current Alcohol intake frequency: holidays/special occasions only Comment: Patient sleeping Patient Tobacco Use Status: Former Tobacco user Tobacco use type: Cigarette Cigarettes Per Day: 3 e-Cigarette/Vaping Use: Never Used Second Hand Smoke Exposure: Yes Are you DNR?: No Advance Directives: No Advance Directives Information Provided: Yes Recently lost weight without trying: No Nutrition Risks: No Nutritional Risk service: No Current occupational status: employed Cognitive needs: No Hearing needs: No Vision needs: Yes (glasses) Meds Allergies Allergy/AdvReac Type Severity Reaction Status Date / Time Iodinated Contrast Media Allergy Intermediate Anaphylaxis Verified 02/23/23 11:26 latex [Latex] Allergy Unknown RASH Verified 02/23/23 11:26 Home Medications Medication Instructions Recorded Confirmed Last Taken Type albuterol sulfate 2.5 mg/3 mL mg inhalation Q4H PRN muscle spasm 11/30/21 02/23/23 Unknown History (0.083 %) solution for nebulization Exam Pertinent Lab Results Pertinent Lab Results: Laboratory Tests 12/15/22 18:16 WBC 11.0 H Hgb 12.4 Hct 38.3 Plt Count 268 Sodium 135 Potassium 3.6 Chloride 104 Carbon Dioxide 22 BUN 8 L Creatinine 0.77 Narrative Narrative: EKG 01/2023 SR, septal Q, ST/ T wave abn, which has been present on prior EKGs as well, rate 93 nuclear stress test on 05/03/2021 which was equivocal for small mild distal septal ischemia. Echocardiogram from 09/04/2020 showed EF 55-60%, moderate LVH, moderate diastolic dysfunction with increased filling pressures, mild MR. A cardiac catheterization was done on 07/20/2021 showing normal coronary arteries. sleep study done for 12/28/2021 showing severe mixed sleep apnea. Assessment and Plan Assessment Anesthesia Assessment: Chart Reviewed Documented by User: Gale Coppola MD 03/01/23 09:20 [facility] Past Medical History Medical History Anemia Bilateral hand numbness Bilateral hand pain HSV (herpes simplex virus) infection Smoking TIA (transient ischemic attack) DJD (degenerative joint disease) GERD (gastroesophageal reflux disease) Asthma Obesity Diabetes mellitus HTN (hypertension) Family History Family History Mother Heart disease Diabetes Hypertension Hyperlipidemia Fibromyalgia Father No problems noted. Brother No problems noted. Brother No problems noted. Brother No problems noted. Sister Deep vein thrombosis Son No problems noted. Son No problems noted. Daughter Hypertension Daughter No problems noted. Maternal Aunt History of breast cancer Family history of problems with anesthesia: No Surgical History Surgical History H/O cardiac catheterization Hx of tubal ligation Hx of cholecystectomy Hx of appendectomy Hx of section History of Problems with Anesthesia: No Social History Social History Household Members: Children Housing: Apartment Do you presently have visiting nurse or other home services: No Alcohol intake: current Alcohol intake frequency: holidays/special occasions only Comment: Patient sleeping Patient Tobacco Use Status: Former Tobacco user Tobacco use type: Cigarette Cigarettes Per Day: 3 e-Cigarette/Vaping Use: Never Used Second Hand Smoke Exposure: Yes Are you DNR?: No Advance Directives: No Advance Directives Information Provided: Yes Recently lost weight without trying: No Nutrition Risks: No Nutritional Risk service: No Current occupational status: employed Cognitive needs: No Hearing needs: No Vision needs: Yes (glasses) Meds Allergies Allergy/AdvReac Type Severity Reaction Status Date / Time Iodinated Contrast Media Allergy Intermediate Anaphylaxis Verified 02/23/23 11:26 latex [Latex] Allergy Unknown RASH Verified 02/23/23 11:26 Home Medications Medication Instructions Recorded Confirmed Last Taken Type albuterol sulfate 2.5 mg/3 mL mg inhalation Q4H PRN muscle spasm 11/30/21 02/23/23 Unknown History (0.083 %) solution for nebulization Exam Airway Mallampati Class: II (missing a couple) TM Dist: >3cm Neck ROM: Full Heart: rrr Lungs: cta Assessment and Plan Assessment Anesthesia Assessment: Anesthesia Plan Discussed Final Anesthetic Review Family History of Problems with Anesthesia: No History of Problems with Anesthesia: No NPO: No ASA Class: III Final Preanesthetic Review: No Changes in Pt Med Stat, Meds/Allgs Chart Reviewed and Consent Obtained/Reviewed Patient Risk: Intermediate Procedure Risk: Intermediate Anesthetic Plan Anesthetic Plan: MAC: Disposition: Standard PACU
[2023-03-01 09:00] VITALS: BP 183/107; RESP 18; TEMP 36.6; O2SAT 98; BMI 34.2
--- NOTE | 2023-03-01 09:15 | MHC.SHP ---
Pre-Procedural Eval Section A Date of Service: 03/01/23 Section B Chief Complaint: Abnormal findings on diagnostic imaging of other a Relevant Family History (Specify if Yes): No Relevant Social History: None Present Medications: see Short Stay Collaborative assessment Medical History: Significant History (Anemia Bilateral hand numbness Bilateral hand pain HSV (herpes simplex virus) infection Smoking TIA (transient ischemic attack) DJD (degenerative joint disease) GERD (gastroesophageal reflux disease) Asthma Obesity Diabetes mellitus HTN (hypertension)) History of Previous Operations: Relevant previous surgery/procedure and date(s) (H/O cardiac catheterization Hx of tubal ligation Hx of cholecystectomy Hx of appendectomy Hx of section) Allergies: Allergies Allergy/AdvReac Type Severity Reaction Status Date / Time Iodinated Contrast Media Allergy Intermediate Anaphylaxis Verified 02/23/23 11:26 latex [Latex] Allergy Unknown RASH Verified 02/23/23 11:26 Review of Systems Sugical H&P ROS: Negative: Constitution, Cardiovascular, Respiratory, Neurological, Psychiatric, Hem-Onc, Allergic/Immunologic, Gastrointestinal, Genitourinary, Musculoskeletal, Integumentary, Endocrine and Eyes/Ears/Nose/Throat Exam Surgical H&P Exam: Normal: Heart, Normal: Lungs, Normal: Extremities, Normal: Abdomen, Normal: Skin and Normal: Neurological and Significant Findings: HEENT (enlarged tonsils) Plan Diagnosis/Plan: Unchanged I have reviewed the history and physical and performed a pertinent physical examination on my patient. No changes have occurred unless specified. Time Spent With Patient Time: Total time managing care of this patient today ____ minutes.
[2023-03-01 09:16] VITALS: BP 170/81
[2023-03-01] MEDS: Lactated Ringers 1,000 ML 100 ML IVCONT (09:30)
--- NOTE | 2023-03-01 10:22 | W.PM.OPN ---
Operative Note Operative Note Date of Service: 03/01/23 Narrative: Procedure Description: EGD Indication: dysphagia, reflux, epigastric pain Anesthesia: MAC FLEXIBLE TRANSORAL UPPER GASTROINTESTINAL ENDOSCOPY UPPER ENDOSCOPY Consent: Indications for the procedure and potential complications of bleeding, perforation, reaction to medications and missed diagnosis were discussed with the patient and informed consent was obtained. Instrument: Olympus GIF H 190 J mid size upper endoscope Monitoring: Vital signs and clinical assessment, continuous EKG monitoring, Pulse oximetry, Carbon Dioxide monitoring and blood pressure monitoring were done throughout the procedure. Procedure: The patient was placed in the left lateral decubitis position and pre-procedure medications were administered and a bite block was placed. The endoscope was inserted into the mouth and advanced under direct vision to the third part of duodenum. A careful inspection was made as the upper endoscope was withdrawn including a retroflexed examination of the proximal stomach; Findings and interventions are described below. Findings: Larynx:normal Esophagus: GE junction at 35 cm, diaphragm hiatus at 35 cm, small sliding hiatal hernia noted, with small erosion noted at GEJ with some congestion and erythema noted. Balloon dilation doen to 18 mm at UES and LES with small tear seen at LES. Stomach: Patchy gastric erythema and nodularity, known to have h pylori, bx taken for culture and sensitivity. Biopsies were obtained. Grade 2 flap valve on retroflexed examination of the cardia. Duodenum: Normal bulb and descending duodenum, bx taken Intervention: Biopsies as noted above, balloon dilation Impression/Findings: erosive esophagitis gastritis esophgeal stricture PLAN: await c/s for h pylori and can reattempt treatment at later date reflux precautions
[2023-03-01 10:30] VITALS: BP 173/102; PULSE 90; RESP 16; TEMP 36.6; O2SAT 100
[2023-03-01 10:45] VITALS: BP 169/109; PULSE 86; RESP 16; O2SAT 100
[2023-03-01 11:00] VITALS: BP 160/97; PULSE 89; RESP 16; TEMP 36.4; O2SAT 99
[2023-03-14 09:13] LABS: H Pylori Cult Source BIOPSY
== END 2023-03-01 11:30 | disposition home or self-care (01) ==
PROVIDERS: PCP Internal Medicine; Visit Provider Internal Medicine Gastroenterology
PROC: 0DJ08ZZ Inspection of Upper Intestinal Tract, Via Natural or Artificial Opening Endoscopic (ICD-10-PCS; CPT 43235; principal; 2023-03-01 10:20)
DX: K22.10 Ulcer of esophagus without bleeding (principal); K29.70 Gastritis, unspecified, without bleeding; K22.2 Esophageal obstruction; K21.00 Gastro-esophageal reflux disease with esophagitis, without bleeding; K44.9 Diaphragmatic hernia without obstruction or gangrene; R13.10 Dysphagia, unspecified; D64.9 Anemia, unspecified; G47.30 Sleep apnea, unspecified; E66.9 Obesity, unspecified; Z68.33 Body mass index [BMI] 33.0-33.9, adult; E11.9 Type 2 diabetes mellitus without complications; I10 Essential (primary) hypertension; J45.909 Unspecified asthma, uncomplicated; Z87.891 Personal history of nicotine dependence; Z90.49 Acquired absence of other specified parts of digestive tract
CPT/HCPCS: 43249; 43239; 36415; 87081; 88305; J2250; J2704

== ENCOUNTER → 2023-03-01 08:57 | Outpatient (BNV) | payer OTHER, SELFPAY | PROVIDERS: PCP Internal Medicine; Visit Provider Internal Medicine Gastroenterology | DX: K22.2 Esophageal obstruction (principal); K21.00 Gastro-esophageal reflux disease with esophagitis, without bleeding; K29.70 Gastritis, unspecified, without bleeding | CPT/HCPCS: 43239; 43249 ==

== ENCOUNTER 2023-03-24 12:00 | Observation (INO) | payer OTHER, SELFPAY ==
--- NOTE | ~2023-03-24 | CT_ITS ---
EXAMINATION: CT ABDOMEN AND PELVIS WITH CONTRAST CLINICAL INFORMATION: Left lower quadrant pain COMPARISON: 10/21/2022 TECHNIQUE: Multidetector volumetric images were obtained from the superior aspect of the liver through the pubic symphysis following administration 80 mL of Omnipaque 350 intravenous contrast. Sagittal and coronal reformatted images were obtained on the technologist's workstation. Oral contrast: No This CT examination was performed using dose optimization techniques as appropriate, variously including the following: *Automated exposure control *Adjustment of mA and/or kV according to patient size (this includes techniques or standardized protocols for targeted exams where dose is matched to indication/reason for exam; i.e. extremities or head) *Use of iterative reconstruction technique DLP: 554 mGy-cm FINDINGS: TRANSIT PLANNING MANAGER: Cholecystectomy clips. Nonobstructive bowel pattern. LUNG BASES: Platelike atelectasis. Nonenlarged heart. No pericardial effusion. LIVER, GALLBLADDER, AND BILIARY TREE: The liver is normal in size, shape, and attenuation. No focal hepatic lesion or biliary ductal dilatation is present. The gallbladder has been surgically removed. PANCREAS: Unremarkable. SPLEEN: Unremarkable. ADRENAL GLANDS: Unremarkable. KIDNEYS AND URETERS: The kidneys are normal in size, shape, and attenuation. No hydronephrosis, hydroureter, or calculi seen. No perinephric stranding. BLADDER: Under distended but unremarkable. GASTROINTESTINAL TRACT: Moderately distended stomach. Nonobstructive bowel pattern. Fecalization distal ileum. Appendix not identified. Moderate fecal retention. Diverticulosis without diverticulitis. ABDOMINAL WALL: Moderately large fat filled umbilical hernia stranding. LYMPH NODES: Normal. VASCULAR: Unremarkable. PELVIC VISCERA: Question fibroid uterus and nabothian cysts. Phleboliths. OSSEOUS STRUCTURES: No suspicious osseous lesions. CT/CT abdomen pelvis w IV con IMPRESSION: No acute intra-abdominal or pelvic pathology. Fleischner guidelines were followed.
[2023-03-24 13:01] VITALS: BP 197/109; PULSE 90; RESP 16; TEMP 36.6; O2SAT 99; BMI 34.2
--- NOTE | 2023-03-24 13:02 | ED.GENADULT ---
HPI - General Adult General Chief complaint: Abdominal Pain Stated complaint: ? Kidney Stone Back Stomach Pain Blood in Urine Time Seen by Provider: 03/24/23 14:24 Source: patient Limitations: no limitations History of Present Illness HPI narrative: 42 years old with past medical history of hypertension, diabetes, asthma, tobacco dependency, chronic elevated troponin, presented emergency room for generalized abdominal pain with radiation to the back. The patient reports that the pain started yesterday associated with mild chest pain. Reports that the pain is 10/10 in severity radiation to the back. Patient also reports pressure when she urinates. She denies bloody stool, diarrhea. Prior surgical history includes appendectomy, , cholecystectomy. Patient denies headache, blurry vision, slurred speech.+ Related Data Home Medications Medication Instructions Recorded Confirmed dulaglutide 0.75 mg/0.5 mL 0.75 mg subcut WE@199903/24/23 03/24/23 subcutaneous pen injector (Trulicity) insulin glargine 100 unit/mL (3 20 unit subcut BID 03/24/23 03/24/23 mL) subcutaneous pen (Lantus Solostar U-100 Insulin) Previous Rx's Medication Instructions Recorded blood-glucose meter (FreeStyle #1 ea 09/05/20 [place] kit) nebulizers #1 ea 06/17/21 aspirin 81 mg tablet,delayed 81 mg PO DAILY #81 tabs 02/16/22 release hydrochlorothiazide 25 mg tablet 25 mg PO DAILY #90 tabs 08/04/22 blood sugar diagnostic (FreeStyle #100 ea 09/12/22 Lite Strips) amlodipine 10 mg tablet 10 mg PO DAILY #90 tabs 10/05/22 albuterol sulfate 0.63 mg/3 mL 0.63 mg (3 mL) inhalation Q4-6H 10/28/22 solution for nebulization PRN shortness of breath or wheezing #90 mL albuterol sulfate 90 mcg/actuation 2 inh inhalation Q4-6H PRN 10/28/22 breath activated powder shortness of breath or wheezing #1 inhaler,sensor ea cyclobenzaprine 10 mg tablet 10 mg PO TID PRN muscle spasm #30 10/28/22 tabs lancets 28 gauge (FreeStyle #100 ea 10/28/22 Lancets) lisinopril 40 mg tablet 40 mg PO DAILY #30 tabs 10/28/22 blood pressure monitor #1 ea 11/22/22 flash glucose sensor (FreeStyle #2 ea 01/30/23 [place] 2 Sensor kit) insulin lispro 100 unit/mL 6 unit (0.06 mL) subcut TID #15 mL 01/30/23 subcutaneous pen (Humalog KwikPen (U-100) Insulin) pen needle, diabetic 32 gauge x #100 ea 02/02/23 5/16 (Comfort EZ Pen [place]) flash glucose scanning reader #1 ea 02/05/23 (FreeStyle [place] 2 [place]) metformin 1,000 mg tablet 1,000 mg PO BID #60 tabs 02/06/23 omeprazole 20 mg capsule,delayed 20 mg PO BID #180 caps 02/06/23 release blood sugar diagnostic (FreeStyle #100 ea 02/13/23 Lite Strips) blood-glucose meter (FreeStyle #1 ea 02/13/23 Lite Meter kit) lancets 28 gauge (FreeStyle #100 ea 02/13/23 Lancets) labetalol 200 mg tablet 200 mg PO BID #60 tabs 02/23/23 sucralfate 1 gram tablet 1 g PO BID 90 days #180 tabs 03/03/23 Allergies Allergy/AdvReac Type Severity Reaction Status Date / Time Iodinated Contrast Media Allergy Intermediate Anaphylaxis Verified 03/24/23 13:01 latex [Latex] Allergy Unknown RASH Verified 03/24/23 13:01 Review of Systems Review of Systems: Yes all other systems are reviewed and are negative PMFSH Past Medical History Medical History Anemia Bilateral hand numbness Bilateral hand pain HSV (herpes simplex virus) infection Smoking TIA (transient ischemic attack) DJD (degenerative joint disease) GERD (gastroesophageal reflux disease) Asthma Obesity Diabetes mellitus HTN (hypertension) Surgical History H/O cardiac catheterization Hx of tubal ligation Hx of cholecystectomy Hx of appendectomy Hx of section Family History Family History Mother Heart disease Diabetes Hypertension Hyperlipidemia Fibromyalgia Father No problems noted. Brother No problems noted. Brother No problems noted. Brother No problems noted. Sister Deep vein thrombosis Son No problems noted. Son No problems noted. Daughter Hypertension Daughter No problems noted. Maternal Aunt History of breast cancer Social History Social History Household Members: Children Housing: Apartment Do you presently have visiting nurse or other home services: No Alcohol intake: current Alcohol intake frequency: does not drink Patient Tobacco Use Status: Former Tobacco user Tobacco use type: Cigarette Cigarettes Per Day: 3 Smoked in Last 30 Days: No e-Cigarette/Vaping Use: Never Used Second Hand Smoke Exposure: Yes Use of substances other than those prescribed or required for medical reasons: No Advance Directives: No Advance Directives Information Provided: No service: No Current occupational status: employed Cognitive needs: No Hearing needs: No Vision needs: Yes (glasses) Physical Exam ED Vital Signs: Vital Signs - 24 hr 03/24/23 13:01 03/24/23 19:27 03/24/23 20:54 Temperature 97.8 F Pulse Rate 90 95 104 H Respiratory Rate 16 20 21 H Blood Pressure 197/109 H 178/92 H 178/100 H Pulse Oximetry 99 95 Oxygen Delivery Method Room Air Room Air BMI result Body Mass Index 34.2 General: Alert, Not in Distress Skin: No rash, warm HEENT: Atraumatic, No Exudate or Pharyngeal Erythema Resp: Normal Breath sounds bilaterally Cardio: Regular rate and Rhythm, Normal S1, S2 ABD: Abd diffusely tender tender, but no guarding or rebound. Normal Bowel sounds. : NCVA tenderness bilaterally Neuro: Alert, oriented x4, PERRL Strenght 5/5 on all extremities Sensation is preserved in both lower and upper extremities Index to nose: normal Cranial Nerves II-XII grossly intact No dysarthria, or aphasia No neglet. Visual garcia are normal bilaterally Psych: Cooperative, NO SI Course Course Course Narrative: This is a rapid medical exam: Additional HPI, ROS, PE not included below will be deferred to primary provider. Patient is a 42-year-old female with history of anemia, TIA, GERD, asthma, DM, HTN, obesity presenting to the ED with complaint of bilateral flank pain radiating to lower abdomen since last night. Pressure with urination, chills, nausea. Denies history of kidney stones. Also complaining of mild chest pain. Plan: EKG, labs, UA Reevaluation(s) Reevaluation #1: Patient reports improvement of her symptoms, CT scan was unremarkable and troponin is mildly down trending. Will give patient aspirin 81 mg considering patient is already on aspirin and has been compliant with her medication. Will discuss with hospitalist for admission Time: 17:57 Reevaluation #2: Discussed with hospitalist will admit Time: 18:45 Medications Administered Discontinued Medications Generic Name Dose Route Start Last Admin Trade Name Peterq PRN Reason Stop Dose Admin Acetaminophen 975 mg 03/24/23 14:36 03/24/23 15:07 Acetaminophen 325 Mg Tablet PO 03/24/23 14:37 975 mg ONCE ONE Administration Amlodipine Besylate 10 mg 03/24/23 17:28 03/24/23 19:09 Amlodipine Besylate 10 Mg Tablet PO 03/24/23 17:29 10 mg ONCE ONE Administration Protocol Aspirin 81 mg 03/24/23 17:57 03/24/23 19:09 Aspirin 81 Mg Tab.Chew PO 03/24/23 17:58 81 mg ONCE ONE Administration Diphenhydramine HCl 25 mg 03/24/23 15:06 03/24/23 15:17 Diphenhydramine Hcl 50 Mg/Ml Vial IVPUSH 03/24/23 15:07 25 mg ONCE ONE Administration Famotidine 20 mg 03/24/23 15:06 03/24/23 15:17 Famotidine/Pf 20 Mg/2 Ml Vial IVPUSH 03/24/23 15:07 20 mg ONCE ONE Administration Sodium Chloride 500 mls @ 999 mls/hr 03/24/23 15:00 03/24/23 20:55 Ns IV 03/24/23 15:30 Infused .Q31M MESHA Infusion Iohexol 100 ml 03/24/23 16:35 03/24/23 16:36 Iohexol 350 Mg/Ml 100 Ml Infus..Btl IV 03/24/23 16:36 80 ml ONCE ONE Administration Morphine Sulfate 4 mg 03/24/23 14:36 03/24/23 15:07 Morphine Sulfate 4 Mg/Ml Cartridge IVPUSH 03/24/23 14:37 4 mg ONCE ONE Administration Protocol Ondansetron HCl 4 mg 03/24/23 14:36 03/24/23 15:07 Ondansetron Hcl 4 Mg/2 Ml Vial IVPUSH 03/24/23 14:37 4 mg ONCE ONE Administration Prednisone 60 mg 03/24/23 15:06 03/24/23 15:17 Prednisone 20 Mg Tablet PO 03/24/23 15:07 60 mg ONCE ONE Administration Medical Decision Making Medical Decision Making [facility] Narrative: 42 years old presenting to the emergency room for abdominal pain. Patient reports severe pain, radiation to the back, the exam showed CVA tenderness was also diffuse abdominal pain and it is not very specific for kidney stone. UA did not show any raul hematuria and patient does not have a history of kidney stone. In addition initial lab work showed elevated troponin which may be secondary to high blood pressure which I think is driven by pain. However his mildly elevated compared from last 1. Patient EKG shows LVH but no STEMI Possible differential diagnosis include kidney stone, pancreatitis, bowel ischemia, NSTEMI Plan: CT abdomen and pelvis with contrast Serial troponin Analgesia Antiemetics IV fluids Lab Data 03/24/23 13:25 03/24/23 13:25 Labs: Lab Results 03/24/23 03/24/23 03/24/23 Range/Units 13:19 13:25 15:44 WBC 17.6 H (4.8-10.8) X10*3/uL RBC 5.78 H (4.20-5.50) X10*6/uL Hgb 13.4 (12.0-16.0) g/dl Hct 42.4 (37.0-47.0) % MCV 73.4 L (80.0-98.0) fL MCH 23.2 L (27.0-33.0) pg MCHC 31.6 (31.0-35.0) g/dl RDW 18.0 H (11.0-16.0) % Plt Count 318 (160-400) X10*3/uL MPV 10.7 (9.4-12.3) fL Immature Gran % (Auto) 0.5 H (0.0-0.4) % Neut % (Auto) 70.4 (45-73) % Lymph % (Auto) 20.9 (20-40) % [place] % (Auto) 6.2 (2-11) % Eos % (Auto) 1.6 (0-4) % Baso % (Auto) 0.4 (0-2) % Lymph # (Auto) 3.7 (1.2-4.9) X10*3/uL [place] # (Auto) 1.1 (0.1-1.2) X10*3/uL Eos # (Auto) 0.3 (0.0-0.4) X10*3/uL Baso # (Auto) 0.1 (0.0-0.2) X10*3/uL Abs Immat Gran (auto) 0.08 H (0.00-0.03) X10*3/uL Absolute Neuts (auto) 12.4 H (2.0-8.3) x10*3/uL Absolute Nucleated RBC 0.000 (0.0-0.012) X10*3/uL Nucleated RBC % (auto) 0.0 (0.0-0.2) /100WBC Sodium 136 (135-145) mmol/L Potassium 3.1 L (3.3-5.1) mmol/L Chloride 100 (96-108) mmol/L Carbon Dioxide 26 (22-29) mmol/L Anion Gap 13 (12-20) BUN 13 (9-16) mg/dL Creatinine 0.90 (0.5-1.4) mg/dL Estim Creat Clear Calc 81.3 Estimated GFR > 60 Random Glucose 125 H (60-115) mg/dL Calcium 9.5 (8.4-10.2) mg/dL Total Bilirubin 0.6 (0.0-1.0) mg/dL AST 18 (5-31) U/L ALT 18 (0-31) U/L Alkaline Phosphatase 77 (39-117) U/L Troponin I High Sens 79.8 H* 75.5 H* (<3.5-17.0) ng/L Total Protein 8.2 H (6.5-8.0) g/dL Albumin 4.0 (3.5-5.0) g/dL Lipase 12 (8-78) U/L Beta HCG, Quant < 2 mIU/mL Urine Color Dark Yellow Urine Appearance Clear Urine pH 6.0 (5.0-9.0) Ur Specific [place] 1.015 (1.005-1.025) Urine Protein 100 (2+) H (Neg-Trace) mg/dL Urine Glucose (UA) Negative (Negative) mg/dL Urine Ketones Trace (Negative) mg/dL Urine Blood Negative (Negative) Urine Nitrite Negative (Negative) Ur Leukocyte Esterase Trace H (Negative) Urine RBC 0-2 (0-2) /HPF Urine WBC 11-20 H (0-5) /HPF Ur Squamous Epith Cells 6-10 (0-2) /HPF Urine Bacteria Trace (None Seen) Hyaline Casts 3-5 (0-2) /LPF Discharge Plan Discharge Clinical Impression: HTN (hypertension), Acute non-ST elevation myocardial infarction (NSTEMI) Patient Disposition: Admitted As Inpatient Prescriptions: No Action (DME) nebulizers [facility] [place] See Rx Instructions .Route Qty: 1 0RF Rx Instructions: to use every 4 hours as needed for wheezing aspirin 81 mg tablet,delayed release (DR/EC) 81 mg PO DAILY Qty: 81 8RF hydrochlorothiazide 25 mg tablet 25 mg PO DAILY Qty: 90 8RF (DME) FreeStyle Lite Strips Strip See Rx Instructions .ROUTE .MEDSUPPLY Qty: 100 7RF Rx Instructions: BID As directed amlodipine 10 mg tablet 10 mg PO DAILY Qty: 90 2RF (DME) blood pressure monitor Kit See Rx Instructions .Route Qty: 1 0RF Rx Instructions: As directed (DME) pen needle, diabetic [Comfort EZ Pen [place]] 32 gauge x 5/16 needle See Rx Instructions .Route Qty: 100 4RF Rx Instructions: As directed injects 4X/day (DME) FreeStyle Chiquita 2 [place] [facility] [place] See Rx Instructions .Route Qty: 1 0RF Rx Instructions: As directed omeprazole 20 mg capsule,delayed release(DR/EC) 20 mg PO BID Qty: 180 0RF metformin 1,000 mg tablet 1,000 mg PO BID Qty: 60 8RF (DME) blood-glucose meter [FreeStyle Lite Meter] Kit See Rx Instructions .Route Qty: 1 0RF Rx Instructions: As directed (DME) FreeStyle Lite Strips Strip See Rx Instructions .Route Qty: 100 5RF Rx Instructions: As directed tests 4 X/day (DME) lancets [FreeStyle Lancets] [facility] See Rx Instructions .Route Qty: 100 4RF Rx Instructions: As directed tests 4 X/day sucralfate 1 gram tablet 1 g PO BID 90 Days Qty: 180 2RF (DME) blood-glucose meter [FreeStyle [place]] Kit See Rx Instructions .ROUTE .MEDSUPPLY Qty: 1 0RF Rx Instructions: As directed Trulicity 0.75 mg/0.5 mL pen injector 0.75 mg subcut WE@2000 insulin glargine [Lantus Solostar U-100 Insulin] 100 unit/mL (3 mL) insulin pen 20 unit subcut BID albuterol sulfate 90 mcg/actuation aero powdr breath act w/sensor 2 inh inhalation Q4-6H PRN (Reason: shortness of breath or wheezing) Qty: 1 0RF Rx Instructions: May dispense medication equivalent accepted by patient's insurance albuterol sulfate 0.63 mg/3 mL solution for nebulization 0.63 mg inhalation Q4-6H PRN (Reason: shortness of breath or wheezing) Qty: 90 0RF Rx Instructions: May dispense medication equivalent accepted by patient's insurance cyclobenzaprine 10 mg tablet 10 mg PO TID PRN (Reason: muscle spasm) Qty: 30 2RF (DME) lancets [FreeStyle Lancets] 28 gauge misc See Rx Instructions .ROUTE .MEDSUPPLY Qty: 100 7RF Rx Instructions: BID As directed lisinopril 40 mg tablet 40 mg PO DAILY Qty: 30 0RF labetalol 200 mg tablet 200 mg PO BID Qty: 60 5RF insulin lispro [Humalog KwikPen Insulin] 100 unit/mL insulin pen 6 unit subcut TID Qty: 15 4RF (DME) FreeStyle [place] 2 Sensor Kit See Rx Instructions .Route Qty: 2 4RF Rx Instructions: As directed change every 14 days
--- NOTE | 2023-03-24 13:04 | ECG_ITS ---
Test Reason : chest pain Blood Pressure : / mmHG Vent. Rate : 094 BPM Atrial Rate : 094 BPM P-R Int : 154 ms QRS Dur : 088 ms QT Int : 392 ms P-R-T Axes : 040 -34 138 degrees QTc Int : 490 ms Normal sinus rhythm Possible Left atrial enlargement Left axis deviation Left ventricular hypertrophy ( R in aVL , [place] product ) Cannot rule out Septal infarct (cited on or before 15-DEC-2022) Abnormal ECG When compared with ECG of 15-DEC-2022 18:09, No significant change was found Referred By: Sigrid Price Electronically Signed By:LAURA RIDDLE
[2023-03-24 13:29] LABS: MANUAL DIFF FLAG NO
[2023-03-24 13:31] LABS: Basophils Absolute Auto 0.1 X10*3/uL (0.0-0.2); Basophils Percent Auto 0.4 % (0-2); Eosinophils Absolute Auto 0.3 X10*3/uL (0.0-0.4); Eosinophils Percent Auto 1.6 % (0-4); Hematocrit 42.4 % (37.0-47.0); Hemoglobin 13.4 g/dl (12.0-16.0); Imm Gran Abs Auto 0.08 X10*3/uL (0.00-0.03); Imm Gran Pct Auto 0.5 % (0.0-0.4); Lymphocytes Absolute Auto 3.7 X10*3/uL (1.2-4.9); Lymphocytes Percent Auto 20.9 % (20-40); Mean Corpuscular HGB Conc 31.6 g/dl (31.0-35.0); Mean Corpuscular Hemoglobin 23.2 pg (27.0-33.0); Mean Corpuscular Volume 73.4 fL (80.0-98.0); Mean Platelet Volume 10.7 fL (9.4-12.3); Monocytes Absolute Auto 1.1 X10*3/uL (0.1-1.2); Monocytes Percent Auto 6.2 % (2-11); Neutrophils Absolute Auto 12.4 x10*3/uL (2.0-8.3); Neutrophils Percent Auto 70.4 % (45-73); Platelet Count 318 X10*3/uL (160-400); Red Blood Count 5.78 X10*6/uL (4.20-5.50); White Blood Count 17.6 X10*3/uL (4.8-10.8)
[2023-03-24 13:33] LABS: Appearance Urine Clear; Color Urine Dark Yellow; Glucose Urine UA Negative (Negative); Leukocyte Esterase Urine Trace (Negative); Nitrite Urine Negative (Negative); Specific Gravity - Urine 1.015 (1.005-1.025); UMIC TRIGGER UACC YES; Urine Blood Negative (Negative); Urine Ketones Trace mg/dL (Negative); Urine Protein 100 (2+) mg/dL (Neg-Trace)
[2023-03-24 13:52] LABS: Alanine Aminotransferase 18 U/L (0-31); Alkaline Phosphatase 77 U/L (39-117); Anion Gap 13 (12-20); Aspartate Amino Transferase 18 U/L (5-31); Bilirubin Total 0.6 mg/dL (0.0-1.0); Blood Urea Nitrogen 13 mg/dL (9-16); Calcium 9.5 mg/dL (8.4-10.2); Carbon Dioxide 26 mmol/L (22-29); Chloride 100 mmol/L (96-108); Creatinine Clr Calc Pharmacy 81.3; Estimated Glomerular Filt Rate > 60; Glucose Random 125 mg/dL (60-115); HCG Quantitative < 2 mIU/mL; Potassium 3.1 mmol/L (3.3-5.1); Sodium 136 mmol/L (135-145); Total Protein 8.2 g/dL (6.5-8.0)
[2023-03-24 13:54] LABS: Bacteria Urine Trace (None Seen); RBC Urine 0-2 /HPF (0-2); UACC Culture Trigger YES
[2023-03-24 13:54] LABS: Troponin-I High Sensitivity 79.8 ng/L (<3.5-17.0)
[2023-03-24] MEDS: Acetaminophen 325 MG TABLET 975 MG PO (15:07)
[2023-03-24] MEDS: Morphine Sulfate 4 MG/ML CARTRIDGE IVPUSH (15:07)
[2023-03-24] MEDS: ondansetron HCL 4 MG/2 ML VIAL IVPUSH (15:07)
[2023-03-24] MEDS: 0.9 % Sodium Chloride 500 ML 999 ML IV (15:08)
[2023-03-24] MEDS: Famotidine/PF 20 MG/2 ML VIAL IVPUSH (15:17)
[2023-03-24] MEDS: predniSONE 20 MG TABLET 60 MG PO (15:17)
[2023-03-24] MEDS: diphenhydrAMINE HCL 50 MG/ML VIAL 25 MG IVPUSH (15:17)
[2023-03-24 15:20] LABS: Lipase 12 U/L (8-78)
[2023-03-24 16:14] LABS: Troponin-I High Sensitivity 75.5 ng/L (<3.5-17.0)
[2023-03-24] MEDS: iohexoL 350 MG/ML 100 ML INFUS..BTL IV (16:36)
[2023-03-24] MEDS: Aspirin 81 MG TAB.CHEW PO (19:09)
[2023-03-24] MEDS: amLODIPine Besylate 10 MG TABLET PO (19:09)
[2023-03-24 19:27] VITALS: BP 178/92; PULSE 95; RESP 20; O2SAT 95
--- NOTE | 2023-03-24 19:33 | PHA.MEDREC ---
Pharmacy Consult ? Medication Reconciliation Pharmacy has completed the medication reconciliation. Patient report most medications. Patient report lisinopril however not recent fill for medication. Patient was not sure about HCTZ, however per cardiology notes it patient should be on and has recently filled medication in January for 90 days. Patient reports she is not taking valacylovir, it was only a temporary medications. Brissa Orellana, PharmD
[2023-03-24 20:54] VITALS: BP 178/100; PULSE 104; RESP 21
--- NOTE | 2023-03-24 22:31 | PM.IMHP ---
History of Present Illness Date of Service: 03/24/23 Attending physician on admission: Marino Kaiser Chief Complaint: Abdominal pain; Chest pain x 1 day Patient is a 42 year old [place] speaking female with past medical history of hypertension, type 2 diabetes mellitus, asthma, obstructive sleep apnea, CAD s/p NSTEMI, TIA, GERD, nephrolithiasis, vitamin B12 and D deficiency and anemia who presented to the emergency room complaining of moderate upper abdominal pain that radiates laterally to involve both flanks and lower back for the last several days. She also reports having a pressure-like sensation when she urinates and has noted some vaginal discharge. She reports associated nausea (with no vomiting), constipation, chills. She therefore presented to emergency room where initial workup done was significant for elevated high sensitivity troponin I (HSTnI) at 79 with a repeat of 75. Of note, she has had chronically elevated Troponin I. Initial blood work done revealed a WBC count of 17.6, hypokalemia with a serum potassium of 3.1 mmol/L while a urinalysis done revealed 11-20 wbc's, trace leukocyte esterase and trace bacteria. An assessment of UTI was made she was started on intravenous ceftriaxone and admission requested. Review of Systems Review of Systems: Yes all other systems are reviewed and are negative [facility] Medical History (Updated 03/25/23 @ 04:53 by Marino Kaiser MD) UTI (urinary tract infection) Anemia Bilateral hand numbness Bilateral hand pain HSV (herpes simplex virus) infection Smoking TIA (transient ischemic attack) DJD (degenerative joint disease) GERD (gastroesophageal reflux disease) Asthma Obesity Diabetes mellitus HTN (hypertension) Family History Mother Heart disease Diabetes Hypertension Hyperlipidemia Fibromyalgia Father No problems noted. Brother No problems noted. Brother No problems noted. Brother No problems noted. Sister Deep vein thrombosis Son No problems noted. Son No problems noted. Daughter Hypertension Daughter No problems noted. Maternal Aunt History of breast cancer Surgical History H/O cardiac catheterization Hx of tubal ligation Hx of cholecystectomy Hx of appendectomy Hx of section Social History Household Members: Family Housing: Apartment Do you presently have visiting nurse or other home services: No Alcohol intake: current Alcohol intake frequency: does not drink Patient Tobacco Use Status: Former Tobacco user Tobacco use type: Cigarette Cigarettes Per Day: 3 Smoked in Last 30 Days: No e-Cigarette/Vaping Use: Never Used Patient Interested in Nicotine Replacement: No Patient Given Instructions on How to Stop Smoking: No Second Hand Smoke Exposure: No Use of substances other than those prescribed or required for medical reasons: No Currently Displaying Signs/Symptoms of Drug Intoxication Withdrawal: No Any prior treatment program specific to substance use: No Have you been hit, kicked, punched, or otherwise hurt by someone within the past year? If so, by whom?: No Do you feel safe in your current relationship?: Yes Is there a partner from a previous relationship who is making you feel unsafe now?: No Are you made to feel afraid or neglected: No Advance Directives: No Advance Directives Information Provided: No Do you have thoughts of harming others: None Do you have a plan to hurt others: No Plan Recently lost weight without trying: No Eating poorly because of decreased appetite: No Nutrition Risks: No Nutritional Risk Patient : No : No Poor oral hygiene: No service: No Current occupational status: employed Cognitive needs: No Hearing needs: No Vision needs: Yes (glasses) Meds Allergies Allergy/AdvReac Type Severity Reaction Status Date / Time Iodinated Contrast Media Allergy Intermediate Anaphylaxis Verified 03/24/23 13:01 latex [Latex] Allergy Unknown RASH Verified 03/24/23 13:01 Home Medications Medication Instructions Recorded Confirmed Last Taken Type dulaglutide 0.75 mg/0.5 mL 0.75 mg subcut WE@199903/24/23 03/24/23 Unknown History subcutaneous pen injector (Trulicity) insulin glargine 100 unit/mL (3 20 unit subcut BID 03/24/23 03/24/23 Unknown History mL) subcutaneous pen (Lantus Solostar U-100 Insulin) Physical Exam Vital Signs and Narrative: Vital Signs: Last Vital Signs Temp 97.8 F 03/24/23 13:01 Pulse 104 H 03/24/23 20:54 Resp 21 H 03/24/23 20:54 BP 178/100 H 03/24/23 20:54 Pulse Ox 95 03/24/23 19:27 O2 Del Method Room Air 03/24/23 19:27 BMI result Body Mass Index 34.2 General: Well nourished female. Awake, alert and oriented x 4. No apparent distress Eyes: No pallor or jaundice. PERRLA, EOMI HENT: Moist oral mucus membranes. No oropharyngeal lesions. Neck: Supple. No cervical adenopathy. No JVD Cardiovascular: Regular rate and rhythm. Normal heart sounds. No murmurs, rubs or gallops. No JVD. No peripheral edema. Respiratory: Normal respiratory effort with no accessory muscle use. CTAB. Gastrointestinal: Abdomen is soft, non-tender, non-distended. NABS. No hepatosplenomegaly Genitourinary: Positive bilateral CVA tenderness Extremities: No edema. No calf tenderness. Good peripheral pulses Skin: Warm/Dry. No rashes. No mottling. Capillary refill is < 2 seconds Neurological: AAOx4. Intact speech & cognition. Normal gait & balance. CN II - XII grossly intact but not individually tested. No motor or sensory deficits Hematologic: No bleeding. No ecchymosis. No swollen or tender lymph nodes. Psychiatric: Cooperative. Appropriate mood and affect. Results Labs 03/24/23 13:25 03/24/23 13:25 Labs: Laboratory Results - last 24 hr 03/24/23 03/24/23 13:19 13:25 MCV 73.4 L MCH 23.2 L MCHC 31.6 RDW 18.0 H Plt Count 318 MPV 10.7 Immature Gran % (Auto) 0.5 H Neut % (Auto) 70.4 Lymph % (Auto) 20.9 [place] % (Auto) 6.2 Eos % (Auto) 1.6 Baso % (Auto) 0.4 Lymph # (Auto) 3.7 [place] # (Auto) 1.1 Eos # (Auto) 0.3 Baso # (Auto) 0.1 Abs Immat Gran (auto) 0.08 H Absolute Neuts (auto) 12.4 H Absolute Nucleated RBC 0.000 Nucleated RBC % (auto) 0.0 Anion Gap 13 Estim Creat Clear Calc 81.3 Estimated GFR > 60 Random Glucose 125 H Calcium 9.5 Total Bilirubin 0.6 AST 18 ALT 18 Alkaline Phosphatase 77 Total Protein 8.2 H Albumin 4.0 Lipase 12 Beta HCG, Quant < 2 Urine Color Dark Yellow Urine Appearance Clear Urine pH 6.0 Ur Specific [place] 1.015 Urine Protein 100 (2+) H Urine Glucose (UA) Negative Urine Ketones Trace Urine Blood Negative Urine Nitrite Negative Ur Leukocyte Esterase Trace H Urine RBC 0-2 Urine WBC 11-20 H Ur Squamous Epith Cells 6-10 Urine Bacteria Trace Hyaline Casts 3-5 ECG ECG interpretation date: 03/25/23 ECG interpretation time: 04:46 Prior ECG tracings: available for review Interpretation: NSR at 94 bpm with normal NC interval and LAD. No acute ischemic changes. Imaging Radiologist's Impressions: Impressions Abdomen/Pelvis CT 03/24/23 16:34 No acute intra-abdominal or pelvic pathology. Assessment and Plan (1) UTI (urinary tract infection): Qualifiers: Urinary tract infection type: site unspecified Hematuria presence: without hematuria Qualified Code(s): N39.0 - Urinary tract infection, site not specified Status: Acute (2) Hypokalemia: Status: Acute (3) HTN (hypertension): Qualifiers: Hypertension type: primary hypertension Qualified Code(s): I10 - Essential (primary) hypertension Status: Acute (4) Elevated troponin I level: Status: Acute Plan 42 year old [place]ian speaking female with past medical history of hypertension, type 2 diabetes mellitus, asthma, obstructive sleep apnea, CAD s/p NSTEMI, TIA, GERD, nephrolithiasis, vitamin B12 and D deficiency and anemia here with: 1. UTI - presentation is concerning for a UTI - admit and continue IV Ceftriaxone - follow up on urine cultures 2. Hypertensive urgency - BP with sub-optimal control - restart Labetalol, Amlodipine and Lisinopril 3. Hypokalemia - mild at 3.1 - replace and recheck in the morning - also check serum Magnesium 3. Elevated Troponin I level - she has chronically elevated Troponin I - however today she reported some vague chest discomfort - EKG with no acute ischemic changes - likely with troponin leak - monitor 4. Type 2 Diabetes Mellitus - restart Insulin Lantus and Metformin - add SSI coverage Total time managing care of this patient today: 75 minutes. Quality Stroke Does the patient have a stroke diagnosis?: No VTE Prior VTE?: No VTE Risk Level:: Medical - moderate - high VTE Device Contraindication: N/A - Device Ordered VTE Drug Contraindication: N/A - Med Ordered
[2023-03-24 22:43] VITALS: BP 169/87; PULSE 107; RESP 16; O2SAT 96
[2023-03-24] MEDS: Docusate Sodium 100 MG CAPSULE PO (22:45)
[2023-03-24] MEDS: Potassium Chloride ER 20 MEQ TAB.ER.PRT PO (22:45)
[2023-03-24] MEDS: Enoxaparin Sodium 40 MG/0.4 ML SYRINGE SUBCUT (22:45)
[2023-03-24] MEDS: HYDROmorphone HCl 0.5 MG/0.5 ML SYRINGE IVPUSH (22:46)
[2023-03-24] MEDS: Insulin Glargine,Hum.rec.anlog 100 UNIT/ML 10 ML VIAL 20 UNIT SUBCUT (23:04)
[2023-03-24] MEDS: Labetalol HCL 200 MG TABLET 400 MG PO (23:04)
--- NOTE | 2023-03-24 23:28 | PC.NURSE ---
this rn and additional rn contacted dr mcfarland to confirm if blood cultures are needed prior to initiation of iv antibiotics.@ [id number]. per dr mcfarland no blood cultures needed prior to initiation of iv antibiotics
[2023-03-24] MEDS: cefTRIAXone sodium 1 GM in 0.9 % Sodium Chloride 50 ML IV (23:34)
[2023-03-25 00:26] VITALS: BP 107/58; PULSE 96; RESP 20; TEMP 36.4; O2SAT 92
[2023-03-25 01:04] VITALS: BMI 35.2
[2023-03-25] MEDS: 0.9 % Sodium Chloride Flush 3 ML SYRINGE IVFLUSH ×3 (01:20→17:02)
[2023-03-25] MEDS: ondansetron HCL 4 MG/2 ML VIAL IVPUSH (01:20)
[2023-03-25 03:06] VITALS: BP 131/70; PULSE 89; RESP 20; TEMP 36.2; O2SAT 93
[2023-03-25] MEDS: Omeprazole 20 MG CAPSULE.DR PO ×2 (05:24→17:00)
[2023-03-25 07:09] LABS: MANUAL DIFF FLAG NO
[2023-03-25 07:24] LABS: Basophils Percent Auto 0.1 % (0-2); Hematocrit 37.8 % (37.0-47.0); Hemoglobin 11.8 g/dl (12.0-16.0); Imm Gran Pct Auto 0.6 % (0.0-0.4); Lymphocytes Absolute Auto 2.1 X10*3/uL (1.2-4.9); Lymphocytes Percent Auto 13.5 % (20-40); Mean Corpuscular HGB Conc 31.2 g/dl (31.0-35.0); Mean Corpuscular Hemoglobin 23.3 pg (27.0-33.0); Mean Corpuscular Volume 74.7 fL (80.0-98.0); Mean Platelet Volume 11.9 fL (9.4-12.3); Monocytes Absolute Auto 0.6 X10*3/uL (0.1-1.2); Monocytes Percent Auto 4.1 % (2-11); Neutrophils Absolute Auto 12.7 x10*3/uL (2.0-8.3); Neutrophils Percent Auto 81.7 % (45-73); Platelet Count 304 X10*3/uL (160-400); Red Blood Count 5.06 X10*6/uL (4.20-5.50); Red Cell Distribution Width 17.6 % (11.0-16.0); White Blood Count 15.6 X10*3/uL (4.8-10.8)
[2023-03-25 07:58] VITALS: BP 127/68; PULSE 94; RESP 20; TEMP 36.9; O2SAT 93
[2023-03-25 07:59] LABS: Anion Gap 17 (12-20); Blood Urea Nitrogen 20 mg/dL (9-16); Carbon Dioxide 22 mmol/L (22-29); Chloride 101 mmol/L (96-108); Creatinine Clr Calc Pharmacy 67.7; Estimated Glomerular Filt Rate 54; Glucose Random 238 mg/dL (60-115); Magnesium 1.7 mg/dL (1.6-2.6); Potassium 3.4 mmol/L (3.3-5.1); Sodium 137 mmol/L (135-145)
[2023-03-25] MEDS: Insulin Glargine,Hum.rec.anlog 100 UNIT/ML 10 ML VIAL 20 UNIT SUBCUT ×2 (08:03→22:37)
[2023-03-25] MEDS: amLODIPine Besylate 10 MG TABLET PO (08:04)
[2023-03-25] MEDS: Aspirin Enteric Coated 81 MG TABLET.DR PO (08:04)
[2023-03-25] MEDS: Docusate Sodium 100 MG CAPSULE PO ×2 (08:04→22:37)
[2023-03-25] MEDS: Insulin Lispro 100 UNIT/ML 3 ML VIAL SUBCUT ×4 (08:04→22:38)
[2023-03-25] MEDS: metFORMIN HCl 1,000 MG TABLET 1000 MG PO ×2 (08:04→22:36)
[2023-03-25] MEDS: Sucralfate 1 GM TABLET PO ×2 (08:04→22:36)
[2023-03-25] MEDS: lisinopriL 40 MG TABLET PO (08:05)
[2023-03-25] MEDS: Labetalol HCL 200 MG TABLET PO ×2 (08:05→22:37)
[2023-03-25] MEDS: hydroCHLOROthiazide 25 MG TABLET PO (08:05)
[2023-03-25 08:15] LABS: Thyroid Stimulating Hormone 1.32 uIU/mL (0.32-4.0)
--- NOTE | 2023-03-25 08:29 | MHC.CM.PN ---
CM met with Patient at bedside and addressed VALENTIN with her, providing Patient with the original and a copy has been placed on the chart. 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 Patient is requesting new VNA for RN (Insulin and meds )& home PT; a referral has been sent to [facility]. CM has initiated and will follow for dc planning. PCP is Dr. Derrek Hollingsworth. No HCP.
[2023-03-25 12:00] VITALS: BP 115/58; PULSE 86; RESP 20; TEMP 36.9; O2SAT 95
--- NOTE | 2023-03-25 14:18 | HO.PM.IMPN ---
Subjective Subjective Date of Service: 03/25/23 Interval History: Being followed for bilateral flank and lower abdominal discomfort patient feels a little better but is still complaining of bilateral flank pain as well as lower abdominal discomfort, and pressure-like sensation with urination denies dysuria no burning, no fevers, no chills. CT abdomen and pelvis showed normal kidneys no hydronephrosis, no hydroureter and no acute intra-abdominal pathology. Denies nausea vomiting. Review of Systems All other system reviewed and negative Physical Exam Vital Signs: Vital Signs: Last Vital Signs Temp 98.5 F 03/25/23 12:00 Pulse 86 03/25/23 12:00 Resp 20 03/25/23 12:00 BP 115/58 L 03/25/23 12:00 Pulse Ox 95 03/25/23 12:00 O2 Del Method Room Air 03/25/23 12:00 BMI result Body Mass Index 35.2 Const: Other: General awake alert x3, in no acute distress. Neck supple no JVD. CVS regular rate rhythm, Respiratory lungs clear to auscultation, no respiratory distress, no wheeze, no rhonchi. Gastrointestinal abdomen soft, mild tenderness to palpation lower abdomen ,no mass , no CVA tenderness Extremities no edema. Neuro nonfocal Psych appropriate affect Objective Data Active Medications Acetaminophen (Acetaminophen 325 Mg Tablet) 650 mg PO Q6H PRN PRN Reason: Pain, Mild (Pain Scale 1-3) Al Hydroxide/Mg Hydroxide (Magnesium Hydrox/Alum Hydrox 30 Ml Oral.Susp) 30 ml PO Q4H PRN PRN Reason: Heartburn/Nausea Albuterol Sulfate (Albuterol Sulfate 90 Mcg 8 Gm Inhaler) 2 puff INHALE Q4H PRN PRN Reason: shortness of breath or wheezing Albuterol Sulfate (Albuterol Sulfate (0.083%) 2.5 Mg/3 Ml Vial.Neb) 2.5 mg INHALE QID PRN PRN Reason: Shortness of Breath/Wheezing Stop: 03/25/23 17:01 Amlodipine Besylate (Amlodipine Besylate 10 Mg Tablet) 10 mg PO DAILY [facility]; Protocol Last Admin: 03/25/23 08:04 Dose: 10 mg Documented By: LENORE Aspirin (Aspirin Enteric Coated 81 Mg Tablet.) 81 mg PO DAILY [facility] Last Admin: 03/25/23 08:04 Dose: 81 mg Documented By: LENORE Cyclobenzaprine HCl (Cyclobenzaprine Hcl 10 Mg Tablet) 10 mg PO TID PRN PRN Reason: muscle spasm Dextrose (Dextrose 50 % 25 Gm/50 Ml Syringe) 25 gm IVPUSH Q15M PRN; Protocol PRN Reason: per Hypoglycemia Standing Ord. Docusate Sodium (Docusate Sodium 100 Mg Capsule) 100 mg PO BID [facility] Last Admin: 03/25/23 08:04 Dose: 100 mg Documented By: LENORE Enoxaparin Sodium (Enoxaparin Sodium 40 Mg/0.4 Ml Syringe) 40 mg SUBCUT Q24H [facility] Last Admin: 03/24/23 22:45 Dose: 40 mg Documented By: ZAID Glucose (Glucose Gel 15 Gm Gel..Gram.) 15 gm PO Q15M PRN; Protocol PRN Reason: per Hypoglycemia Standing Ord. Hydrochlorothiazide (Hydrochlorothiazide 25 Mg Tablet) 25 mg PO DAILY [facility]; Protocol Last Admin: 03/25/23 08:05 Dose: 25 mg Documented By: LENORE Insulin Glargine (Insulin Glargine,Hum.Rec.Anlog 100 Unit/Ml 10 Ml Vial) 20 unit SUBCUT BID [facility] Last Admin: 03/25/23 08:03 Dose: 20 unit Documented By: LENORE Insulin Human Lispro (Insulin Lispro 100 Unit/Ml 3 Ml Vial) 0 unit SUBCUT QIDACHS [facility]; Protocol Last Admin: 03/25/23 12:01 Dose: 2 unit Documented By: LENORE Labetalol HCl (Labetalol Hcl 200 Mg Tablet) 200 mg PO BID [facility]; Protocol Last Admin: 03/25/23 08:05 Dose: 200 mg Documented By: LENORE Lisinopril (Lisinopril 40 Mg Tablet) 40 mg PO DAILY [facility]; Protocol Last Admin: 03/25/23 08:05 Dose: 40 mg Documented By: LENORE Melatonin (Melatonin 3 Mg Tablet) 6 mg PO BEDTIME PRN PRN Reason: Insomnia Metformin HCl (Metformin Hcl 1,000 Mg Tablet) 1,000 mg PO BID [facility] Last Admin: 03/25/23 08:04 Dose: 1,000 mg Documented By: LENORE Morphine Sulfate (Morphine Sulfate 4 Mg/Ml Cartridge) 2 mg IVPUSH Q4H PRN; Protocol PRN Reason: Pain, Severe (Pain Scale 7-10) Nitroglycerin (Nitroglycerin 0.4 Mg Tab.Subl) 0.4 mg SUBLINGUAL Q5MX3 PRN PRN Reason: Chest Pain Omeprazole (Omeprazole 20 Mg Capsule.Dr) 20 mg PO BID@0630,1630 [facility] Last Admin: 03/25/23 05:24 Dose: 20 mg Documented By: JENN Ondansetron HCl (Ondansetron Hcl 4 Mg/2 Ml Vial) 4 mg IVPUSH Q8H PRN PRN Reason: Nausea and Vomiting Last Admin: 03/25/23 01:20 Dose: 4 mg Documented By: JENN Oxycodone HCl (Oxycodone Hcl Immed Release 5 Mg Tablet) 5 mg PO Q6H PRN PRN Reason: Pain, Moderate(Pain Scale 4-6) Senna (Sennosides 8.6 Mg Tablet) 17.2 mg PO BEDTIME PRN PRN Reason: Constipation Sodium Chloride (0.9 % Sodium Chloride Flush 3 Ml Syringe) 3 ml IVFLUSH QSHIFT [facility] Last Admin: 03/25/23 08:05 Dose: 3 ml Documented By: LENORE Sucralfate (Sucralfate 1 Gm Tablet) 1 gm PO BID [facility] Last Admin: 03/25/23 08:04 Dose: 1 gm Documented By: LENORE Labs 03/25/23 06:25 03/25/23 06:25 Labs: Laboratory Results - last 24 hr 03/24/23 03/25/23 13:25 06:25 MCV 74.7 L MCH 23.3 L MCHC 31.2 RDW 17.6 H Plt Count 304 MPV 11.9 Immature Gran % (Auto) 0.6 H Neut % (Auto) 81.7 H Lymph % (Auto) 13.5 L [place] % (Auto) 4.1 Eos % (Auto) 0.0 Baso % (Auto) 0.1 Lymph # (Auto) 2.1 [place] # (Auto) 0.6 Eos # (Auto) 0.0 Baso # (Auto) 0.0 Abs Immat Gran (auto) 0.10 H Absolute Neuts (auto) 12.7 H Absolute Nucleated RBC 0.000 Nucleated RBC % (auto) 0.0 Anion Gap 17 Estim Creat Clear Calc 67.7 Estimated GFR 54 Random Glucose 238 H Calcium 9.0 Magnesium 1.7 Lipase 12 TSH 1.32 Microbiology Microbiology Results: Microbiology 03/24/23 Unknown Urine Culture - Final Urine clean catch - Urine carranza top Streptococcus viridans group Strep agalactiae (Grp B) Assessment and Plan (1) Hypokalemia: Status: Acute (2) Elevated troponin I level: Status: Acute Plan 42 year old Welsh speaking female with past medical history of hypertension, type 2 diabetes mellitus, asthma, obstructive sleep apnea, CAD s/p NSTEMI, TIA, GERD, nephrolithiasis, vitamin B12 and D deficiency and anemia here with: 1.? UTI - UA mildly positive, urine culture grew Streptococcus viridans less than 100,000, and strep is electively less than 10,000 likely contamination No further antibiotics needed,no uti 2. Hypertensive urgency - BP with sub-optimal control likely due to pain - continue Labetalol, Amlodipine and Lisinopril 3. Hypokalemia - mild at 3.1 repleted and normalized, magnesium 1.7 3. Elevated Troponin I level - she has chronically elevated Troponin I, EKG with no acute ischemic change continue home medications 4. Hyperglycemia due to Type 2 Diabetes Mellitus - continue Insulin Lantus and Metformin, will adjust dose of insulin sliding scale hemoglobin A1c 12 5.SIRS with Lower abdominal pain/back pain likely musculoskeletal no cause of pain found, no source of infection WBC trending down follow clinical course analgesics and supportive care. 6. Obesity recommended weight reduction/low-calorie diet, likely contributing to elevated blood sugars Quality Stroke Does the patient have a stroke diagnosis?: No VTE Prior VTE?: No VTE Risk Level:: Medical - moderate - high VTE Device Contraindication: N/A - Device Ordered VTE Drug Contraindication: N/A - Med Ordered
[2023-03-25 15:44] VITALS: BP 113/59; PULSE 87; RESP 20; TEMP 36.7; O2SAT 96
[2023-03-25 19:23] VITALS: BP 127/59; PULSE 88; RESP 18; TEMP 37.1; O2SAT 97
[2023-03-25] MEDS: Enoxaparin Sodium 40 MG/0.4 ML SYRINGE SUBCUT (22:36)
[2023-03-25] MEDS: oxyCODONE HCl Immed Release 5 MG TABLET PO (22:40)
[2023-03-26] VITALS: BP 124/58; PULSE 100; RESP 18; TEMP 36.9; O2SAT 99
[2023-03-26 03:16] VITALS: BP 109/53; PULSE 91; RESP 18; TEMP 37.1; O2SAT 98
[2023-03-26 07:25] LABS: Hematocrit 37.1 % (37.0-47.0); Hemoglobin 11.7 g/dl (12.0-16.0); Mean Corpuscular HGB Conc 31.5 g/dl (31.0-35.0); Mean Corpuscular Hemoglobin 23.7 pg (27.0-33.0); Mean Corpuscular Volume 75.3 fL (80.0-98.0); Mean Platelet Volume 11.7 fL (9.4-12.3); Platelet Count 289 X10*3/uL (160-400); Red Blood Count 4.93 X10*6/uL (4.20-5.50); Red Cell Distribution Width 17.7 % (11.0-16.0); White Blood Count 14.2 X10*3/uL (4.8-10.8)
[2023-03-26 07:42] VITALS: BP 133/73; PULSE 82; RESP 16; TEMP 37.2; O2SAT 95
[2023-03-26] MEDS: Insulin Glargine,Hum.rec.anlog 100 UNIT/ML 10 ML VIAL 20 UNIT SUBCUT (07:53)
[2023-03-26] MEDS: Aspirin Enteric Coated 81 MG TABLET.DR PO (07:53)
[2023-03-26] MEDS: Sucralfate 1 GM TABLET PO (07:53)
[2023-03-26] MEDS: Omeprazole 20 MG CAPSULE.DR PO (07:53)
[2023-03-26] MEDS: amLODIPine Besylate 10 MG TABLET PO (07:54)
[2023-03-26] MEDS: metFORMIN HCl 1,000 MG TABLET 1000 MG PO (07:54)
[2023-03-26] MEDS: lisinopriL 40 MG TABLET PO (07:54)
[2023-03-26] MEDS: hydroCHLOROthiazide 25 MG TABLET PO (07:54)
[2023-03-26] MEDS: Docusate Sodium 100 MG CAPSULE PO (07:54)
[2023-03-26] MEDS: Labetalol HCL 200 MG TABLET PO (07:58)
--- NOTE | 2023-03-26 11:40 | P.DS_ITS ---
DS: Providers Provider Date of Service: 03/26/23 Date of admission: 03/24/23 22:25 Primary care physician: Derrek Hollingsworth MD DS: Diagnosis Discharge Diagnosis (1) Hypokalemia: Status: Acute (2) Elevated troponin I level: Status: Acute DS: Summary Hospital Course Hospital Course: History of presenting illness. Date of Service: 03/24/23 Attending physician on admission: Marino Kaiser Chief Complaint: Abdominal pain; Chest pain x 1 day Patient is a 42 year old Marshallese speaking female with past medical history of hypertension, type 2 diabetes mellitus, asthma, obstructive sleep apnea, CAD s/p NSTEMI, TIA, GERD, nephrolithiasis, vitamin B12 and D deficiency and anemia who presented to the emergency room complaining of moderate upper abdominal pain that radiates laterally to involve both flanks and lower back for the last several days. She also reports having a pressure-like sensation when she urinates and has noted some vaginal discharge. She reports associated nausea (with no vomiting), constipation, chills. She therefore presented to emergency room where initial workup done was significant for elevated high sensitivity troponin I (HSTnI) at 79 with a repeat of 75. Of note, she has had chronically elevated Troponin I. Initial blood work done revealed a WBC count of 17.6, hypokalemia with a serum potassium of 3.1 mmol/L while a urinalysis done revealed 11-20 wbc's, trace leukocyte esterase and trace bacteria. An assessment of UTI was made she was started on intravenous ceftriaxone and admission requested. Hospital course: 42 year old Marshallese speaking female with past medical history of hypertension, type 2 diabetes mellitus, asthma, obstructive sleep apnea, CAD s/p NSTEMI, TIA, GERD, nephrolithiasis, vitamin B12 and D deficiency and anemia presented with moderate upper abdominal pain with radiation to both flanks, lower back discomfort, and pressure-like sensation with urination, associated with nausea, chills, and constipation, no cause of abdominal pain was found on CT abdomen and pelvis,it showed no renal stones, no hydronephrosis, patient met sirs criteria with leukocytosis, tachypnea, tachycardia, urinalysis was mildly positive, was treated with 1 dose of IV ceftriaxone , but urine culture showed mixed bacterial qi therefore antibiotic discontinued, patient has chronically elevated WBC count, patient treated with analgesics, abdominal and back pain improved, reassured patient and recommended Tylenol and hot pack , patient was noted to have elevated troponin that seems to be chronic, EKG showed no acute ischemic change, patient had mild hypokalemia that was repleted and potassium normalized. On arrival to ED patient was noted to have elevated blood pressure likely due to pain that improved with home medications. Hyperglycemia due to Type 2 Diabetes Mellitus recommend diabetic diet noted to have hemoglobin A1c of 12 continue Lantus and metformin Obesity recommended weight reduction/low-calorie diet, likely contributing to elevated blood sugars Time Attestation Discharge coordination time: Greater than 30 minutes Quality: Safe Use of Opioids Does Pt have an Active Cancer Diagnosis on the Problem List?: No Quality: Stroke Does the patient have a stroke diagnosis?: No Physical Exam Vital Signs: Vital Signs: Last Vital Signs Temp 98.9 F 03/26/23 07:42 Pulse 82 03/26/23 07:42 Resp 16 03/26/23 07:42 BP 133/73 03/26/23 07:42 Pulse Ox 95 03/26/23 07:42 O2 Del Method Room Air 03/26/23 07:42 BMI result Body Mass Index 35.2 Const: Other: General awake alert x3, in no acute distress. Neck supple no JVD. CVS regular rate rhythm, Respiratory lungs clear to auscultation, no respiratory distress, no wheeze, no rhonchi. Gastrointestinal abdomen soft, non tender ,bowl sounds audible , no CVA tenderness Extremities no edema. Neuro non focal Psych appropriate affect DS: Data Data Completed and Pending Labs on day of discharge: Laboratory Results - last 24 hr 03/26/23 06:38 WBC 14.2 H RBC 4.93 Hgb 11.7 L Hct 37.1 MCV 75.3 L MCH 23.7 L MCHC 31.5 RDW 17.7 H Plt Count 289 MPV 11.7 Absolute Nucleated RBC 0.000 Nucleated RBC % (auto) 0.0 Hold Yellow Top See Note Discharge Plan Discharge Anticipated Discharge Date/Time: 03/26/23 11:34 Patient Disposition: Home, Self-Care Discharge Diagnosis: SIRS no source of infection abdominal pain Hypokalemia Referrals: Derrek Hollingsworth MD [Primary Care Provider] - 1 Week Discharge Medications: Continued (DME) nebulizers Misc See Rx Instructions .Route Qty: 1 0RF Rx Instructions: to use every 4 hours as needed for wheezing aspirin 81 mg tablet,delayed release (DR/EC) 81 mg PO DAILY Qty: 81 8RF hydrochlorothiazide 25 mg tablet 25 mg PO DAILY Qty: 90 8RF (DME) FreeStyle Lite Strips Strip See Rx Instructions .ROUTE .MEDSUPPLY Qty: 100 7RF Rx Instructions: BID As directed amlodipine 10 mg tablet 10 mg PO DAILY Qty: 90 2RF (DME) blood pressure monitor Kit See Rx Instructions .Route Qty: 1 0RF Rx Instructions: As directed (DME) pen needle, diabetic [Comfort EZ Pen [place]] 32 gauge x 5/16 needle See Rx Instructions .Route Qty: 100 4RF Rx Instructions: As directed injects 4X/day (DME) FreeStyle [place] 2 [place] Misc See Rx Instructions .Route Qty: 1 0RF Rx Instructions: As directed omeprazole 20 mg capsule,delayed release(DR/EC) 20 mg PO BID Qty: 180 0RF metformin 1,000 mg tablet 1,000 mg PO BID Qty: 60 8RF (DME) blood-glucose meter [FreeStyle Lite Meter] Kit See Rx Instructions .Route Qty: 1 0RF Rx Instructions: As directed (DME) FreeStyle Lite Strips Strip See Rx Instructions .Route Qty: 100 5RF Rx Instructions: As directed tests 4 X/day (DME) lancets [FreeStyle Lancets] 28 gauge misc See Rx Instructions .Route Qty: 100 4RF Rx Instructions: As directed tests 4 X/day sucralfate 1 gram tablet 1 g PO BID 90 Days Qty: 180 2RF (DME) blood-glucose meter [FreeStyle [place]] Kit See Rx Instructions .ROUTE .MEDSUPPLY Qty: 1 0RF Rx Instructions: As directed Trulicity 0.75 mg/0.5 mL pen injector 0.75 mg subcut WE@2000 insulin glargine [Lantus Solostar U-100 Insulin] 100 unit/mL (3 mL) insulin pen 20 unit subcut BID albuterol sulfate 90 mcg/actuation aero powdr breath act w/sensor 2 inh inhalation Q4-6H PRN (Reason: shortness of breath or wheezing) Qty: 1 0RF Rx Instructions: May dispense medication equivalent accepted by patient's insurance albuterol sulfate 0.63 mg/3 mL solution for nebulization 0.63 mg inhalation Q4-6H PRN (Reason: shortness of breath or wheezing) Qty: 90 0RF Rx Instructions: May dispense medication equivalent accepted by patient's insurance cyclobenzaprine 10 mg tablet 10 mg PO TID PRN (Reason: muscle spasm) Qty: 30 2RF (DME) lancets [FreeStyle Lancets] 28 gauge misc See Rx Instructions .ROUTE .MEDSUPPLY Qty: 100 7RF Rx Instructions: BID As directed lisinopril 40 mg tablet 40 mg PO DAILY Qty: 30 0RF labetalol 200 mg tablet 200 mg PO BID Qty: 60 5RF insulin lispro [Humalog KwikPen Insulin] 100 unit/mL insulin pen 6 unit subcut TID Qty: 15 4RF (DME) FreeStyle [place] 2 Sensor Kit See Rx Instructions .Route Qty: 2 4RF Rx Instructions: As directed change every 14 days Discharge Orders: Discharge Order (Routine); Ordered 03/26/23 Ordered By: James Nash Diet: Diabetic diet Activity on Discharge: As tolerated Stand Alone Forms: Patient Portal Discharge page Other Ambulatory Orders: Basic Metabolic Panel (Routine) Timeframe: [id number] Facility: [facility] - Location: Laboratory Ordered By: James Nash Care Plan Goals: SIRS no acute infection, chronic leukocytosis abdominal pain resolved Health Concerns: Diabetes mellitus follow diabetic diet Continue all home medication Plan of Treatment: Follow-up with primary care physician call for appointment Assessment: As above Discharge Date/Time: 03/26/23 12:22
[2023-03-26 11:59] LABS: Glucose, Whole Blood 136 mg/dL (60-115)
--- NOTE | 2023-03-26 12:03 | MHC.CM.PN ---
Per EMR patient is medically cleared for dc. Initially requesting VNA services, but now does not feel she needs them, agrees. Patient has own ride home.
== END 2023-03-26 12:22 | disposition home or self-care (01) ==
LOC: HO.ED 21:44 → HO.EDOVER 22:37 → HO.IMC 22:42
PROVIDERS: Registered Nurse Emergency; Admitting Provider Internal Medicine; Emergency Provider Student in an Organized Health Care Education/Training Program; PCP Internal Medicine; Visit Provider Hospitalist
DX: E87.6 Hypokalemia (principal); R65.10 Systemic inflammatory response syndrome (SIRS) of non-infectious origin without acute organ dysfunction; R10.10 Upper abdominal pain, unspecified; E11.65 Type 2 diabetes mellitus with hyperglycemia; N39.0 Urinary tract infection, site not specified; I10 Essential (primary) hypertension; R79.89 Other specified abnormal findings of blood chemistry; J45.909 Unspecified asthma, uncomplicated; R07.9 Chest pain, unspecified; E66.9 Obesity, unspecified; Z68.35 Body mass index [BMI] 35.0-35.9, adult; Z79.899 Other long term (current) drug therapy
CPT/HCPCS: 36415; 74177; 80048; 80053; 81001; 82947; 83690; 83735; 84443; 84484; 84702; 85025; 85027; 87086; 87147; 93005; 96361; 96365; 96366; 96372; 96375; 96376; 99222; 99285; J0696; J1170; J1200; J1650; J2270; J2405; Q9967

== ENCOUNTER → 2023-03-24 13:04 | Outpatient (BNV) | payer OTHER, SELFPAY | PROVIDERS: Emergency Provider Student in an Organized Health Care Education/Training Program; PCP Internal Medicine; Visit Provider Internal Medicine | DX: R07.9 Chest pain, unspecified (principal) | CPT/HCPCS: 93010 ==

== ENCOUNTER → 2023-03-24 22:25 | Outpatient (BNV) | payer OTHER, SELFPAY | PROVIDERS: Admitting Provider Internal Medicine; Emergency Provider Student in an Organized Health Care Education/Training Program; PCP Internal Medicine; Visit Provider Internal Medicine | DX: E11.65 Type 2 diabetes mellitus with hyperglycemia (principal); N39.0 Urinary tract infection, site not specified; E87.6 Hypokalemia; I10 Essential (primary) hypertension; R79.89 Other specified abnormal findings of blood chemistry | CPT/HCPCS: 99223; 99233; 99239 ==

== ENCOUNTER 2023-03-30 09:02 | Outpatient (AMB) | payer OTHER, SELFPAY ==
[2023-03-30 09:04] VITALS: BP 178/102; PULSE 97; BMI 34.4
--- NOTE | 2023-03-30 09:04 | MHC.PC.OV ---
Vital Signs 03/30/23 09:04 Height 5 ft 2 in Weight 188 lb BMI 34.4 BP 178/102 H Blood Pressure Location Lt brachial Position Sitting Pulse 97 Pulse Source Pulse Oximeter Oxygen Delivery Method Room Air Intake Visit Reasons: [facility] [place] 03/26/23- SIRS hypokalemia Lipcoat Sprayer Required: No Ekg Tech: Not Required per policy Accompanied by: Self / Same As Patient Allergies Iodinated Contrast Media Allergy (Intermediate, Verified 03/30/23 09:04) Anaphylaxis latex [Latex] Allergy (Unknown, Verified 03/30/23 09:04) RASH Medication List - Last Reconciled 03/30/23 by Derrek Hollingsworth MD albuterol sulfate 0.63 mg (3 mL) inhalation Q4-6H PRN albuterol sulfate 90 mcg/actuation 2 inhalations inhalation Q4-6H PRN amlodipine 10 mg PO DAILY aspirin 81 mg PO DAILY blood pressure monitor As directed blood sugar diagnostic (FreeStyle Lite Strips) BID As directed blood sugar diagnostic (FreeStyle Lite Strips) As directed tests 4 X/day blood-glucose meter (FreeStyle [place] kit) As directed blood-glucose meter (FreeStyle Lite Meter kit) As directed cyclobenzaprine 10 mg PO TID PRN dulaglutide (Trulicity) 0.75 mg subcut WE@2000 flash glucose scanning reader (FreeStyle Chiquita 2 [place]) As directed flash glucose sensor (FreeStyle Chiquita 2 Sensor kit) As directed change every 14 days hydrochlorothiazide 25 mg PO DAILY insulin glargine (Lantus Solostar U-100 Insulin) 20 units subcut BID insulin lispro (Humalog KwikPen (U-100) Insulin) 6 units (0.06 mL) subcut TID labetalol 200 mg PO BID lancets (FreeStyle Lancets) BID As directed lancets (FreeStyle Lancets) As directed tests 4 X/day lisinopril 40 mg PO DAILY metformin 1,000 mg PO BID nebulizers to use every 4 hours as needed for wheezing omeprazole 20 mg PO BID pen needle, diabetic (Comfort EZ Pen [place]) As directed injects 4X/day sucralfate 1 g PO BID 90 days Tobacco use date assessed: 10/28/22 Dental Screening Dental Screen Date: 03/30/23 Did you have a dental visit in the last 12 months?: No Did you have a dental problem in the last 6 months where you did not have access to dental care?: No Was dental information given to patient?: Patient has dentist [facility] 03/26/23- SIRS hypokalemia HPI Details was admitted with abd pain; found to have a low k and elevated troponin. Otherwise w/u neg and improved; has card f/u scheduled [facility] Medical History UTI (urinary tract infection) Anemia Bilateral hand numbness Bilateral hand pain HSV (herpes simplex virus) infection Smoking TIA (transient ischemic attack) DJD (degenerative joint disease) GERD (gastroesophageal reflux disease) Asthma Obesity Diabetes mellitus HTN (hypertension) Surgical History H/O cardiac catheterization Hx of tubal ligation Hx of cholecystectomy Hx of appendectomy Hx of section Family History Mother Heart disease Diabetes Hypertension Hyperlipidemia Fibromyalgia Father No problems noted. Brother No problems noted. Brother No problems noted. Brother No problems noted. Sister Deep vein thrombosis Son No problems noted. Son No problems noted. Daughter Hypertension Daughter No problems noted. Maternal Aunt History of breast cancer Social History Household Members: Family Housing: Apartment Do you presently have visiting nurse or other home services: No Alcohol intake: current Alcohol intake frequency: does not drink Patient Tobacco Use Status: Former Tobacco user Tobacco use type: Cigarette Cigarettes Per Day: 3 e-Cigarette/Vaping Use: Never Used Second Hand Smoke Exposure: No service: No Current occupational status: employed Cognitive needs: No Hearing needs: No Vision needs: Yes (glasses) Female Reproductive History Menstrual Age of Menarche: 12 Questionnaire PHQ-9 Over the last 2 weeks, how often have you been bothered by any of the following problems? 1. Little interest or pleasure in doing things: not at all 2. Feeling down, depressed, or hopeless: not at all 3. Trouble falling or staying asleep, or sleeping too much: not at all 4. Feeling tired or having little energy: not at all 5. Poor appetite or overeating: not at all 6. Feeling bad about yourself - or that you are a failure or have let yourself or your family down: not at all 7. Trouble concentrating on things, such as reading the newspaper or watching television: not at all 8. Moving or speaking so slowly that other people could have noticed. Or the opposite - being so fidgety or restless that you have been moving around a lot more than usual: not at all 9. Thoughts that you would be better off or of hurting yourself in some way: not at all Total score: 0 Depression Screening Interpretation: Negative Depression Screening Done: Yes Source: Developed by Drs. Willian Nassar, Monique Clark, Aaron Ortega and colleagues, with an educational walter from [employer]. Thrive Questionnaire Date Thrive assessed: 03/30/23 I am a: Patient What is your living situation today?: I have a steady place to live Within the past 12 months, did the food you bought not last and you didn't have the money to get more?: Never true Within the past 12 months, did you worry whether your food would run out before you got money to buy more?: Never true Do you have trouble paying for medicines?: No Do you have trouble getting transportation to medical appointments?: No Do you have trouble paying your heating and electricity bill?: No Do you have trouble taking care of your child, family member or friend?: No Do you have trouble with day-to-day activities such as bathing, preparing meals, shopping, managing finances, etc.?: No Are you currently unemployed and looking for a job?: No Are you interested in more education?: No Please select the resources that you would like help with: None VIKRAM-7 AMB Questionnaire VIKRAM-7 Date VIKRAM - 7 assessed: 03/30/23 Feeling nervous, anxious, or on edge: 0 = Not at all Not being able to stop or control worryin = Not at all Worrying too much about different things: 0 = Not at all Trouble relaxin = Not at all Being so restless that it is hard to sit still: 0 = Not at all Becoming easily annoyed or irritable: 0 = Not at all Feeling afraid as if something awful might happen: 0 = Not at all Total VIKRAM-7 score (0-4 normal; 5-9 mild; 10-14 moderate; 15-21 severe): 0 Source: Developed by Drs. Willian Nassar, Monique Clark, Aaron Ortega and colleagues, with an educational walter from [employer]. Review of Systems Const Denies chills, Denies headache(s) and Denies weight loss ENT Denies headache(s) Card Denies chest pain, Denies syncope, Denies irregular heart rhythm and Denies dyspnea Resp Denies chest congestion, Denies cough and Denies dyspnea GI Denies abdominal pain, Denies change in stool character, Denies nausea and Denies vomiting Musc Denies deformity and Denies joint swelling Neuro Denies syncope and Denies headache(s) Physical exam (Primary Care) Vital Signs: Last Vital Signs Pulse 97 03/30/23 09:04 BP 178/102 H 03/30/23 09:04 Oxygen Delivery Method Room Air 03/30/23 09:04 BMI result Body Mass Index 34.4 Tobacco/Smoking Status: Tobacco use Status Tobacco use date assessed 10/28/22 03/30/23 09:08 Patient Tobacco Use Status Former Tobacco user 03/30/23 09:08 Tobacco use type Cigarette 03/30/23 09:08 e-Cigarette/Vaping Use Never Used 03/30/23 09:08 PHQ-9: PHQ-9 Score PHQ-9: Total score 0 03/30/23 09:08 Depression Screening Interpretation: Negative Thrive Assessment: Date of Thrive Assessment Date Thrive assessed 03/30/23 03/30/23 09:08 Const General: cooperative, comfortable, no acute distress and alert Neck Neck: Yes no lymphadenopathy Thyroid: Thyroid normal Resp Effort & Inspection: normal respiratory effort Auscultation: clear to auscultation bilaterally Percussion: percussion normal Cardio Jugular venous distension: no JVD Palpation: normal PMI Rate: regular rate Rhythm: regular rhythm Heart sounds: S1 normal heart sound present and S2 normal heart sound present GI Inspection: Yes normal to inspection Palpation (GI): No hepatosplenomegaly present Skin General skin exam: no rashes or lesions noted Extrem General: Yes no clubbing, cyanosis or edema Assessment and Plan Assessment & Plan (1) Hypokalemia: Code(s): E87.6 - Hypokalemia Plan: recheck k Coding Level of Care Code Est Pt Level 3 (41442) Diagnoses Hypokalemia E87.6
== END 2023-03-30 09:26 | disposition home or self-care (01) ==
PROVIDERS: PCP Internal Medicine; Visit Provider Internal Medicine
DX: E87.6 Hypokalemia (principal)
CPT/HCPCS: 99213

== ENCOUNTER 2023-03-30 09:31 | Outpatient (REF) | payer OTHER, SELFPAY | END 2023-03-30 09:32 | disposition home or self-care (01) | LOC: HO.LAB 09:31 | PROVIDERS: PCP Internal Medicine; Visit Provider Hospitalist | DX: E87.6 Hypokalemia (principal) | CPT/HCPCS: 36415; 80048 ==

== ENCOUNTER 2023-04-26 11:24 | Outpatient (AMB) | payer OTHER, SELFPAY ==
--- NOTE | 2023-04-26 11:33 | MHC.OFFVIS ---
Intake Vital Signs 04/26/23 11:37 Height 5 ft 2 in Weight 192 lb 7.417 oz BMI 35.2 BP 182/110 H Blood Pressure Location Rt brachial Position Sitting Pulse 87 Pulse Source Pulse Oximeter Intake Visit Reasons: 2month follow up/CONFIRMED Intake Note: Patient presents today to follow up on D2MT. Last Diabetic Eye exam: Over 1 year ago, due in April 2023 Last Podiatry Visit: Does not see a Patient Care Technician Random Glucose: 225 mg/dl HgA1C: 9.0% Life Science Teacher Required: No Accompanied by: Self / Same As Patient Allergies Iodinated Contrast Media Allergy (Intermediate, Verified 04/26/23 11:37) Anaphylaxis latex [Latex] Allergy (Unknown, Verified 04/26/23 11:37) RASH Medication List - Last Reconciled 04/26/23 by Willian Chapin MD albuterol sulfate 0.63 mg (3 mL) inhalation Q4-6H PRN albuterol sulfate 90 mcg/actuation 2 inhalations inhalation Q4-6H PRN amlodipine 10 mg PO DAILY aspirin 81 mg PO DAILY blood pressure monitor As directed blood sugar diagnostic (FreeStyle Lite Strips) BID As directed blood sugar diagnostic (FreeStyle Lite Strips) As directed tests 4 X/day blood-glucose meter (FreeStyle [place] kit) As directed blood-glucose meter (FreeStyle Lite Meter kit) As directed cyclobenzaprine 10 mg PO TID PRN dulaglutide (Trulicity) 0.75 mg subcut WE@2000 flash glucose scanning reader (FreeStyle Chiquita 2 [place]) As directed flash glucose sensor (FreeStyle Chiquita 2 Sensor kit) As directed change every 14 days hydrochlorothiazide 25 mg PO DAILY insulin glargine (Lantus Solostar U-100 Insulin) 20 units subcut BID insulin lispro (Humalog KwikPen (U-100) Insulin) 6 units (0.06 mL) subcut TID labetalol 200 mg PO BID lancets (FreeStyle Lancets) BID As directed lancets (FreeStyle Lancets) As directed tests 4 X/day lisinopril 40 mg PO DAILY metformin 1,000 mg PO BID nebulizers to use every 4 hours as needed for wheezing omeprazole 20 mg PO BID pen needle, diabetic (Comfort EZ Pen [place]) As directed injects 4X/day sucralfate 1 g PO BID 90 days HPI HPI Comments History of Present Illness Details 42 YO F who is seen in consultation mother for T2DM at the request of PCP. Initially diagnosed with T2DM in 3 yrs . Never saw endo before Was initially started on treatment with metformin . Current regimen metformin 1000 mg BID . Lantus 20 units Humalog 6 units , Trulicity 0.75 mg Qwkly for 2 mos Chiquita download shows she is using the sensor 72% of the time. Average glucose is 188 with G mi of 7.8% and variability 21.4%. 42% range with 58% hyperglycemia and no hypoglycemia. Padded shows persistent hyperglycemia throughout the day with increases mid afternoon Infrequent hypoglycemia Family history of T2DM in mother , grandmother . Has eyes checked yearly, last eye exam June 2022 , denies retinopathy. Denies neuropathy, not sees podiatry. Has nephropathy, on BONY/ARB. Has HLD,Not on statin. Last LDL [] as measured on []. Has CAD. Not Had diabetes education. [facility] Medical History Acute non-ST elevation myocardial infarction (NSTEMI) UTI (urinary tract infection) Anemia Bilateral hand numbness Bilateral hand pain HSV (herpes simplex virus) infection Smoking TIA (transient ischemic attack) DJD (degenerative joint disease) GERD (gastroesophageal reflux disease) Asthma Obesity Diabetes mellitus HTN (hypertension) Surgical History H/O cardiac catheterization Hx of tubal ligation Hx of cholecystectomy Hx of appendectomy Hx of section Family History Mother Heart disease Diabetes Hypertension Hyperlipidemia Fibromyalgia Father No problems noted. Brother No problems noted. Brother No problems noted. Brother No problems noted. Sister Deep vein thrombosis Son No problems noted. Son No problems noted. Daughter Hypertension Daughter No problems noted. Maternal Aunt History of breast cancer Social History Household Members: Family Housing: Apartment Do you presently have visiting nurse or other home services: No Alcohol intake: current Alcohol intake frequency: does not drink Patient Tobacco Use Status: Former Tobacco user Tobacco use type: Cigarette Cigarettes Per Day: 3 e-Cigarette/Vaping Use: Never Used Second Hand Smoke Exposure: No service: No Current occupational status: employed Cognitive needs: No Hearing needs: No Vision needs: Yes (glasses) Female Reproductive History Menstrual Age of Menarche: 12 Physical Exam Vital Signs: Last Vital Signs Pulse 87 04/26/23 11:37 BP 182/110 H 04/26/23 11:37 BMI result Body Mass Index 35.2 Absence of Cushingoid features. Absence of acromegalic features. Neck exam reveals nl size thyroid about 15 gms. No thyroid nodules palpable. No carotid bruits present. Lungs decreased air movement with diffuse wheezes . Heart S1 S2, Reg R/R. No M/R/ G. Skin exam reveals absence of vitiligo or acanthosis nigricans. Abdominal exam reveals Soft NT/ND with NA BS. No organomegaly present. Neck Other: . Extrem Other: Visual exam of foot performed. No ulcerations or open lesions. No onchomycosis, no callouses.Pulses 2 + distally Sensation intact to monofilament exam. Vibratory sensation sensed is intact with 128 Hz tuning fork Results AMB Hemoglobin A1c AMB Hemoglobin A1c 9.0 % Last Edit by SUZANNE Davies on 04/26/23 14:00 Results Reviewed Results Reviewed: Laboratory Last Values Glucose (Clinic) 225 mg/dL (60-115) H 04/26/23 11:36 Hgb A1c (Clinic) 9.0 % (4.0-6.0) H 04/26/23 13:58 Assessment & Plan Assessment & Plan (1) Type 2 diabetes mellitus with unspecified complications: Code(s): E11.8 - Type 2 diabetes mellitus with unspecified complications Plan: This is a 42-year-old female with history of type 2 diabetes being treated metformin , Trulicity and basal-bolus insulin with poor glycemic control and known microvascular and macrovascular complications namely CAD, cardiomyopathy and microalbumin. The plan is to increase Trulicity to 1.5 mg Q weekly. If glycemic control is not optimized on increased dose, could consider switching Trulicity to Ozempic in light of prior history of coronary artery disease . Will also have patient see CDE and cryptologic support specialist. Could also consider use of SGLT 2 inhibitor like Jardiance in future. Told patient to contact her primary care provider today regarding lung issues/shortness of breath as well as increased blood pressure she cant contact her primary care provider to go the emergency room Orders: Orders AMB Hemoglobin A1c Today E11.8 - Type 2 diabetes mellitus with unspecified complications Medications: New dulaglutide (Trulicity) 1.5 mg (0.5 mL) subcut QWEEK 2 mL 5RF Coding Level of Care Code Est Pt Level 4 (45168) Diagnoses Type 2 diabetes mellitus with unspecified complications E11.8
[2023-04-26 11:37] VITALS: BP 182/110; PULSE 87; BMI 35.2
[2023-04-26 11:47] LABS: Glucose, Whole Blood 225 mg/dL (60-115)
== END 2023-04-26 13:30 | disposition home or self-care (01) ==
PROVIDERS: PCP Internal Medicine; Visit Provider Internal Medicine Endocrinology, Diabetes & Metabolism
DX: E11.8 Type 2 diabetes mellitus with unspecified complications (principal)
CPT/HCPCS: 99214

== ENCOUNTER → 2023-04-26 11:24 | Outpatient (BNVA) | payer OTHER, SELFPAY | PROVIDERS: PCP Internal Medicine; Visit Provider Internal Medicine Endocrinology, Diabetes & Metabolism | DX: E11.8 Type 2 diabetes mellitus with unspecified complications (principal); Z79.4 Long term (current) use of insulin | CPT/HCPCS: 82947; 83036; 99212 ==

== ENCOUNTER 2023-04-26 13:43 | Observation (INO) | payer OTHER, SELFPAY ==
[2023-04-26] VITALS (10 sets, daily range): BP systolic 186–206; BP diastolic 101–143; PULSE 104–128; RESP 16–98; TEMP 36.7–36.9; O2SAT 30–99; BMI 32.6; BMI 35.2
--- NOTE | 2023-04-26 | ECG_ITS ---
Test Reason : ELEVATED TROP Blood Pressure : / mmHG Vent. Rate : 113 BPM Atrial Rate : 113 BPM P-R Int : 158 ms QRS Dur : 084 ms QT Int : 364 ms P-R-T Axes : 060 -13 134 degrees QTc Int : 499 ms Sinus tachycardia Possible Left atrial enlargement Left ventricular hypertrophy with repolarization abnormality ( R in aVL , Neptali product ) Cannot rule out Septal infarct (cited on or before 15-DEC-2022) Abnormal ECG When compared with ECG of 24-MAR-2023 13:20, ST more depressed Lateral leads T wave inversion more evident in Lateral leads Referred By: Thelma Urena Electronically Signed By:STEFFEN ADAM MD
--- NOTE | ~2023-04-26 | XR_ITS ---
EXAMINATION: XR CHEST CLINICAL INFORMATION: Wheezing. Shortness of breath. COMPARISON: Chest x-ray December 15, 2022 TECHNIQUE: Frontal portable view of the chest was obtained. 2:49 PM FINDINGS: No significant abnormality is noted involving the heart, lungs, mediastinum, bony thorax or soft tissues. XR/XR chest 1V IMPRESSION: Unremarkable examination.
--- NOTE | 2023-04-26 14:05 | ED_ITS ---
HPI - General Adult General Chief complaint: Dyspnea Stated complaint: SOB Cough Asthma Time Seen by Provider: 04/26/23 14:11 Source: patient Mode of arrival: ambulatory Limitations: no limitations History of Present Illness HPI narrative: 42-year-old female history of asthma, GERD, TIAs, anemia, diabetes, morbid obesity, diastolic heart dysfunction, LVH, cardiac catheterization presents with 4 days of shortness of breath, wheezing x4 days. Patient also reports a intermittent severe cough that is causing her some chest discomfort in substernal region, nonradiating. Patient has taken multiple nebulizing treatments and inhalers at home with little to no relief. Was brought straight back from triage. Respiratory at bedside. Patient reports she has not taking her blood pressure medication today. Related Data Home Medications Medication Instructions Recorded Confirmed insulin glargine 100 unit/mL (3 20 unit subcut BID 03/24/23 04/26/23 mL) subcutaneous pen (Lantus Solostar U-100 Insulin) cyclobenzaprine 10 mg tablet 10 mg PO TID PRN muscle spasm 04/26/23 04/26/23 dulaglutide 1.5 mg/0.5 mL 1.5 mg subcut WE 04/26/23 04/26/23 subcutaneous pen injector (Trulicity) Previous Rx's Medication Instructions Recorded blood-glucose meter (FreeStyle #1 ea 09/05/20 [place] kit) nebulizers #1 ea 06/17/21 aspirin 81 mg tablet,delayed 81 mg PO DAILY #81 tabs 02/16/22 release hydrochlorothiazide 25 mg tablet 25 mg PO DAILY #90 tabs 08/04/22 blood sugar diagnostic (FreeStyle #100 ea 09/12/22 Lite Strips) amlodipine 10 mg tablet 10 mg PO DAILY #90 tabs 10/05/22 albuterol sulfate 0.63 mg/3 mL 0.63 mg (3 mL) inhalation Q4-6H 10/28/22 solution for nebulization PRN shortness of breath or wheezing #90 mL albuterol sulfate 90 mcg/actuation 2 inh inhalation Q4-6H PRN 10/28/22 breath activated powder shortness of breath or wheezing #1 inhaler,sensor ea lancets 28 gauge (FreeStyle #100 ea 10/28/22 Lancets) blood pressure monitor #1 ea 11/22/22 flash glucose sensor (FreeStyle #2 ea 01/30/23 [place] 2 Sensor kit) insulin lispro 100 unit/mL 6 unit (0.06 mL) subcut TID #15 mL 01/30/23 subcutaneous pen (Humalog KwikPen (U-100) Insulin) pen needle, diabetic 32 gauge x #100 ea 02/02/23 5/16 (Comfort EZ Pen [place]) flash glucose scanning reader #1 ea 02/05/23 (FreeStyle [place]ita 2 [place]) metformin 1,000 mg tablet 1,000 mg PO BID #60 tabs 02/06/23 blood sugar diagnostic (FreeStyle #100 ea 02/13/23 Lite Strips) blood-glucose meter (FreeStyle #1 ea 02/13/23 Lite Meter kit) lancets 28 gauge (FreeStyle #100 ea 02/13/23 Lancets) prednisone 20 mg tablet 40 mg (2 x 20 mg) PO DAILY #10 tabs 04/27/23 Allergies Allergy/AdvReac Type Severity Reaction Status Date / Time Iodinated Contrast Media Allergy Intermediate Anaphylaxis Verified 04/26/23 11:37 latex [Latex] Allergy Unknown RASH Verified 04/26/23 11:37 Review of Systems 2 Review of Systems: Constitutional : No Weight loss, No Fever, No Chills, No Fatigue, No Malaise ENT/Mouth : No sore throat, No Rhinorrhea Eyes: No Eye Pain, No Swelling, No Redness Cardiovascular : No Chest Pain, No SOB, No Dyspnea on Exertion, No Orthopnea, No Edema, No Palpitations Respiratory : + Cough, No Sputum, + Wheezing, + Shortness of breath Gastrointestinal : No Nausea, No Vomiting, No Diarrhea, No Constipation, No abdominal Pain, No Hematochezia, No Melena Genitourinary : No Dysuria, No Urinary Frequency, No Hematuria, Musculoskeletal : No joint pain, No Myalgias, No Joint Swelling Skin : No Skin Lesions, No rash Neuro : No Weakness, No Numbness, No Dizziness, No Headache Psych : No Anxiety/Panic, No Depression Heme/Lymph: No Bruising, No Bleeding,No Lymphadenopathy Endocrine : No Polyuria, No Polydipsia All other systems reviewed and are negative Yes all other systems are reviewed and are negative [facility] Past Medical History Attestation statement: The following information was validated with the patient. Source: old records reviewed and nursing notes reviewed Medical History Acute non-ST elevation myocardial infarction (NSTEMI) UTI (urinary tract infection) Anemia Bilateral hand numbness Bilateral hand pain HSV (herpes simplex virus) infection Smoking TIA (transient ischemic attack) DJD (degenerative joint disease) GERD (gastroesophageal reflux disease) Asthma Obesity Diabetes mellitus HTN (hypertension) Surgical History H/O cardiac catheterization Hx of tubal ligation Hx of cholecystectomy Hx of appendectomy Hx of section Family History Family History Mother Heart disease Diabetes Hypertension Hyperlipidemia Fibromyalgia Father No problems noted. Brother No problems noted. Brother No problems noted. Brother No problems noted. Sister Deep vein thrombosis Son No problems noted. Son No problems noted. Daughter Hypertension Daughter No problems noted. Maternal Aunt History of breast cancer Social History Social History Household Members: Family and Children Housing: Apartment Do you presently have visiting nurse or other home services: No Alcohol intake: current Alcohol intake frequency: does not drink Patient Tobacco Use Status: Former Tobacco user Tobacco use type: Cigarette Cigarettes Per Day: 3 e-Cigarette/Vaping Use: Never Used Second Hand Smoke Exposure: No service: No Current occupational status: employed Cognitive needs: No Hearing needs: No Vision needs: Yes (glasses) Physical Exam ED Vital Signs: Vital Signs - 24 hr 04/26/23 14:00 04/26/23 14:18 04/26/23 15:34 Temperature 98.3 F Pulse Rate 120 H 128 H 104 H Respiratory Rate 18 98 H 18 Blood Pressure 200/143 H 206/119 H Pulse Oximetry 99 96 Oxygen Delivery Method Room Air Room Air 04/26/23 15:36 04/26/23 17:26 Temperature Pulse Rate 110 H 116 H Respiratory Rate 16 24 H Blood Pressure Pulse Oximetry Oxygen Delivery Method BMI result Body Mass Index 32.6 htn, tachycardia Appearance: Alert.? Oriented X3.? Moderate acute distress.? Head: Normocephalic, atraumatic, no step-offs or deformities Eyes: Pupils equal, round and reactive to light.? ENT: Pharynx normal.? Neck: Normal inspection.? Neck supple.? CVS: Normal heart rate and rhythm.? Pulses normal.? Respiratory: ? Breath sounds with little air movement and wheezing bilaterally. Patient noted to be in moderate respiratory distress. Speaking in short sentences with intermittent cough. She appears uncomfortable. Labored breathing intercostal muscles used for breathing..? Abdomen: Soft and nontender.? Skin: Skin warm and dry.? Normal skin color.? Normal skin turgor.? Extremities: No lower extremity edema.? No calf ttp. 5/5 strength to bilateral upper and lower extremities Back: No midline tenderness, no C-spine tenderness, full range of motion, no CVA tenderness bilaterally Neuro: Oriented X 3.? No motor deficit.? No sensory deficit. CN 2-12 intact Course Course Course Narrative: RME: 42 yold patient with pmh of asthma presents to the ED for coughing, wheezing, and SOB for the past two wekks. blood pressure elevated today. ED broncholar dilator and prednisone ordered. Reevaluation(s) Reevaluation #1: Patient's CBC with leukocytosis 14.0, no left shift, leukocytosis appears to be a chronic finding in patients labs this is not acute. It could also be reactive secondary to shortness of breath, acute respiratory distress. Chemistry unremarkable no acute findings requiring intervention. Sugar is elevated 182 however patient has been having multiple albuterol treatments. Troponin 108.5, nonischemic EKG this is likely demand ischemia type 2 cardiac injury secondary to respiratory distress and hypertension. Will repeat troponin to check delta. Time: 16:08 Reevaluation #2: Second trop 97.2 likey type two injury unlikely ACS. Still with significant wheezing. Time: 17:18 Reevaluation #3: Plan admission. Patient just ambulated to the bathroom was 94% after ambulation w/ sob and continued wheezing. Time: 17:19 Medications Administered Discontinued Medications Generic Name Dose Route Start Last Admin Trade Name Freq PRN Reason Stop Dose Admin Albuterol Sulfate 10 mg 04/26/23 17:18 04/26/23 17:26 Albuterol Sulfate (0.083%) 2.5 Mg/3 Ml Vial.Neb INHALE 04/26/23 17:19 10 mg ONCE ONE Administration Albuterol/Ipratropium 3 ml 04/26/23 20:00 04/27/23 11:17 Albuterol/Iprat 2.5/0.5mg 3 Ml Ampul.Neb INHALE Not Given RQ4H WHILE AWAKE [facility] Amlodipine Besylate 10 mg 04/26/23 14:15 04/26/23 14:42 Amlodipine Besylate 10 Mg Tablet PO 04/26/23 14:16 10 mg ONCE ONE Administration Protocol Amlodipine Besylate 10 mg 04/27/23 09:00 04/27/23 08:20 Amlodipine Besylate 10 Mg Tablet PO 10 mg DAILY [facility] Administration Protocol Aspirin 81 mg 04/27/23 09:00 04/27/23 08:20 Aspirin Enteric Coated 81 Mg Tablet.Dr PO 81 mg DAILY [facility] Administration Albuterol Sulfate 7.5 mg/ 0 mg 04/26/23 14:16 04/26/23 14:17 Albuterol/Ipratropium 3 ml INHALE 04/26/23 14:17 10 each ONCE ONE Administration Albuterol Sulfate 2.5 mg/ 0 mg 04/26/23 15:33 04/26/23 15:35 Albuterol/Ipratropium 3 ml INHALE 04/26/23 15:34 5 dose ONCE ONE Administration Cyclobenzaprine HCl 10 mg 04/26/23 18:03 04/27/23 08:31 Cyclobenzaprine Hcl 10 Mg Tablet PO 10 mg TID PRN Administration muscle spasm Diphenhydramine HCl 50 mg 04/26/23 23:41 04/26/23 23:53 Diphenhydramine Hcl 50 Mg/Ml Vial IVPUSH 04/26/23 23:42 50 mg ONCE ONE Administration Enoxaparin Sodium 40 mg 04/26/23 17:45 04/26/23 19:49 Enoxaparin Sodium 40 Mg/0.4 Ml Syringe SUBCUT 40 mg Q24H MESHA Administration Furosemide 40 mg 04/27/23 07:20 04/27/23 08:21 Furosemide 40 Mg/4 Ml Vial IVPUSH 04/27/23 07:21 40 mg ONCE ONE Administration Protocol Hydrochlorothiazide 25 mg 04/27/23 09:00 04/27/23 08:20 Hydrochlorothiazide 25 Mg Tablet PO 25 mg DAILY [facility] Administration Protocol Magnesium Sulfate 2 gm in 50 mls @ 25 mls/hr 04/26/23 14:15 04/26/23 16:42 Magnesium Sulfate/H2o IV 04/26/23 16:14 Infused ONCE ONE Infusion Insulin Glargine 20 unit 04/26/23 21:00 04/27/23 08:22 Insulin Glargine,Hum.Rec.Anlog 100 Unit/Ml 10 Ml Vial SUBCUT 20 unit BID [facility] Administration Insulin Human Lispro 0 unit 04/26/23 21:00 04/27/23 11:47 Insulin Lispro 100 Unit/Ml 3 Ml Vial SUBCUT 8 unit QIDACHS [facility] Administration Protocol Insulin Human Regular 5 unit 04/26/23 21:49 04/26/23 22:14 Insulin Regular, Human 100 Unit/Ml 3 Ml Vial IVPUSH 04/26/23 21:50 5 unit ONCE ONE Administration Labetalol HCl 10 mg 04/26/23 19:25 04/26/23 19:48 Labetalol Hcl 100 Mg/20 Ml Vial IVPUSH 04/26/23 19:26 10 mg ONCE ONE Administration Labetalol HCl 10 mg 04/26/23 23:41 04/27/23 00:10 Labetalol Hcl 100 Mg/20 Ml Vial IVPUSH 04/26/23 23:42 10 mg ONCE ONE Administration Methylprednisolone Sodium Succinate 125 mg 04/26/23 14:14 04/26/23 14:42 Methylprednisolone Sod Succ 125 Mg/2 Ml Vial IVPUSH 04/26/23 14:15 125 mg ONCE ONE Administration Methylprednisolone Sodium Succinate 40 mg 04/26/23 21:00 04/27/23 08:21 Methylprednisolone Sod Succ 40 Mg/Ml Vial IVPUSH 40 mg BID MESHA Administration Potassium Chloride 40 meq 04/27/23 07:20 04/27/23 08:20 Potassium Chloride Er 20 Meq Tab.Er.Prt PO 04/27/23 07:21 40 meq ONCE ONE Administration Sodium Chloride 3 ml 04/27/23 00:00 04/27/23 08:22 0.9 % Sodium Chloride Flush 3 Ml Syringe IVFLUSH 3 ml QSHIFT [facility] Administration Medical Decision Making Medical Decision Making MDM Narrative: 42-year-old female presents with shortness of breath and wheezing x4 days. Respiratory at bedside upon patient's arrival to Emergency minor care. Physical exam with ? Breath sounds with little air movement and wheezing bilaterally. Patient noted to be in moderate respiratory distress. Speaking in short sentences with intermittent cough. She appears uncomfortable. Labored breathing intercostal muscles used for breathing..? Patient also noted to be hypertensive, tachycardic. History and physical exam concerning for acute asthma with moderate respiratory distress. Unlikely CHF, PE. Other differentials include viral illness. Low suspicion for pneumonia. Tachycardia likely secondary to multiple albuterol treatments at home anterior in the department. Hypertensive likely secondary to non med compliance and [id number] antitussive agents. Likely hypertensive urgency unlikely emergency. Will give home amlodipine dose here. Plan at this time labs, imaging, viral test. Will obtain a VBG. Differential Diagnosis Differential Diagnoses: The differential diagnosis associated with the presentation includes History and physical exam concerning for acute asthma with moderate respiratory distress. Unlikely CHF, PE. Other differentials include viral illness. Low suspicion for pneumonia. Tachycardia likely secondary to multiple albuterol treatments at home anterior in the department. Hypertensive likely secondary to non med compliance and [id number] antitussive agents. Likely hypertensive urgency unlikely emergency. Will give home amlodipine dose here. Admission/Observation Consideration of admission/observation: Escalation of care including admission/observation considered Possible Lab Data MDM Lab Attestation statement: I reviewed the patient's lab results. CBC significant for leukocytosis 14.0 however this is patients baseline. COVID and influenza negative Trop elevated 108.5 04/27/23 06:27 04/27/23 06:27 Labs: Lab Results 04/26/23 04/26/23 04/26/23 Range/Units 14:19 14:35 14:44 WBC 14.0 H (4.8-10.8) X10*3/uL RBC 5.46 (4.20-5.50) X10*6/uL Hgb 12.7 (12.0-16.0) g/dl Hct 39.9 (37.0-47.0) % MCV 73.1 L (80.0-98.0) fL MCH 23.3 L (27.0-33.0) pg MCHC 31.8 (31.0-35.0) g/dl RDW 18.5 H (11.0-16.0) % Plt Count 351 (160-400) X10*3/uL MPV 11.2 (9.4-12.3) fL Immature Gran % (Auto) 0.6 H (0.0-0.4) % Neut % (Auto) 63.6 (45-73) % Lymph % (Auto) 26.7 (20-40) % [place] % (Auto) 6.3 (2-11) % Eos % (Auto) 2.4 (0-4) % Baso % (Auto) 0.4 (0-2) % Lymph # (Auto) 3.7 (1.2-4.9) X10*3/uL [place] # (Auto) 0.9 (0.1-1.2) X10*3/uL Eos # (Auto) 0.3 (0.0-0.4) X10*3/uL Baso # (Auto) 0.1 (0.0-0.2) X10*3/uL Abs Immat Gran (auto) 0.08 H (0.00-0.03) X10*3/uL Absolute Neuts (auto) 9.0 H (2.0-8.3) x10*3/uL Absolute Nucleated RBC 0.000 (0.0-0.012) X10*3/uL Nucleated RBC % (auto) 0.0 (0.0-0.2) /100WBC VBG pH 7.44 H (7.32-7.43) VBG pCO2 43 mmHg VBG pO2 51 mmHg VBG HCO3 30 H (22-26) mmol/L VBG O2 Saturation 79.0 % VBG Base Excess 5.2 mmol/L Sodium 140 (135-145) mmol/L Potassium 3.4 (3.3-5.1) mmol/L Chloride 104 (96-108) mmol/L Carbon Dioxide 27 (22-29) mmol/L Anion Gap 12 (12-20) BUN 13 (9-16) mg/dL Creatinine 0.86 (0.5-1.4) mg/dL Estim Creat Clear Calc 83.0 Estimated GFR > 60 Random Glucose 182 H (60-115) mg/dL Calcium 9.4 (8.4-10.2) mg/dL Total Bilirubin 0.5 (0.0-1.0) mg/dL AST 16 (5-31) U/L ALT 13 (0-31) U/L Alkaline Phosphatase 92 (39-117) U/L Troponin I High Sens 108.5 H* (<3.5-17.0) ng/L Total Protein 8.2 H (6.5-8.0) g/dL Albumin 3.8 (3.5-5.0) g/dL COVID-19 (YANN) Negative (Negative) COVID-19 Clin Com See Note Influenza Type A (BENITA) Negative (Negative) Influenza Type B (BENITA) Negative (Negative) Influenza A & B Note See Note 04/26/23 Range/Units 16:34 WBC (4.8-10.8) X10*3/uL RBC (4.20-5.50) X10*6/uL Hgb (12.0-16.0) g/dl Hct (37.0-47.0) % MCV (80.0-98.0) fL MCH (27.0-33.0) pg MCHC (31.0-35.0) g/dl RDW (11.0-16.0) % Plt Count (160-400) X10*3/uL MPV (9.4-12.3) fL Immature Gran % (Auto) (0.0-0.4) % Neut % (Auto) (45-73) % Lymph % (Auto) (20-40) % [place] % (Auto) (2-11) % Eos % (Auto) (0-4) % Baso % (Auto) (0-2) % Lymph # (Auto) (1.2-4.9) X10*3/uL [place] # (Auto) (0.1-1.2) X10*3/uL Eos # (Auto) (0.0-0.4) X10*3/uL Baso # (Auto) (0.0-0.2) X10*3/uL Abs Immat Gran (auto) (0.00-0.03) X10*3/uL Absolute Neuts (auto) (2.0-8.3) x10*3/uL Absolute Nucleated RBC (0.0-0.012) X10*3/uL Nucleated RBC % (auto) (0.0-0.2) /100WBC VBG pH (7.32-7.43) VBG pCO2 mmHg VBG pO2 mmHg VBG HCO3 (22-26) mmol/L VBG O2 Saturation % VBG Base Excess mmol/L Sodium (135-145) mmol/L Potassium (3.3-5.1) mmol/L Chloride (96-108) mmol/L Carbon Dioxide (22-29) mmol/L Anion Gap (12-20) BUN (9-16) mg/dL Creatinine (0.5-1.4) mg/dL Estim Creat Clear Calc Estimated GFR Random Glucose (60-115) mg/dL Calcium (8.4-10.2) mg/dL Total Bilirubin (0.0-1.0) mg/dL AST (5-31) U/L ALT (0-31) U/L Alkaline Phosphatase (39-117) U/L Troponin I High Sens 97.2 H* (<3.5-17.0) ng/L Total Protein (6.5-8.0) g/dL Albumin (3.5-5.0) g/dL COVID-19 (YANN) (Negative) COVID-19 Clin Com Influenza Type A (BENITA) (Negative) Influenza Type B (BENITA) (Negative) Influenza A & B Note Independent Interpretation I performed an independent interpretation of an: EKG and Plain X-Ray (XR/XR chest 1V IMPRESSION: Unremarkable examination. ) Radiology Impression Discussion of test interpretation with radiology: I have reviewed the radiologist's reading. Radiologist Impression: XR/XR chest 1V IMPRESSION: Unremarkable examination. External Record Review External record reviewed: Inpatient record, Outpatient record, Prior outpatient labs, Prior outpatient radiology, Primary care record and Outside ED record Chronic Conditions Patient?s care impacted by: Diabetes Core Measures AMI core measures followed: Yes Critical Care Time Critical Care Time Critical Care Time: Yes Total Critical Care Time: 45 Attestation: I attest to this time spent taking care of the patient, obtaining history, physical, reviewing labs, imaging, speaking to my attending, speaking to specialist. Discharge Plan Discharge Clinical Impression: Asthma, Elevated troponin I level Patient Disposition: Admitted As Inpatient Interventions: Admission Worksheet (ED) Last Done: 04/26/23 20:44 Discharge Date/Time: 04/26/23 21:21
[2023-04-26] MEDS: Albuterol Sulfate 7.5 MG, Albuterol/Iprat 2.5/0.5MG 3 ML 3 ML INHALE (14:17)
[2023-04-26] MEDS: methylPREDNISolone Sod Succ 125 MG/2 ML VIAL IVPUSH (14:42)
[2023-04-26] MEDS: Magnesium Sulfate/H2O 2 GM/50 ML PIGGYBACK IV (14:42)
[2023-04-26] MEDS: amLODIPine Besylate 10 MG TABLET PO (14:42)
[2023-04-26 14:48] LABS: MANUAL DIFF FLAG NO
[2023-04-26 14:50] LABS: Venous Blood Gas Refer to POC result
[2023-04-26 14:51] LABS: VBG Base Excess 5.2 mmol/L; VBG HCO3 30 mmol/L (22-26); VBG pCO2 43 mmHg; VBG pH 7.44 (7.32-7.43); VBG pO2 51 mmHg
[2023-04-26 14:53] LABS: Basophils Absolute Auto 0.1 X10*3/uL (0.0-0.2); Basophils Percent Auto 0.4 % (0-2); Eosinophils Absolute Auto 0.3 X10*3/uL (0.0-0.4); Eosinophils Percent Auto 2.4 % (0-4); Hematocrit 39.9 % (37.0-47.0); Hemoglobin 12.7 g/dl (12.0-16.0); Imm Gran Abs Auto 0.08 X10*3/uL (0.00-0.03); Imm Gran Pct Auto 0.6 % (0.0-0.4); Lymphocytes Absolute Auto 3.7 X10*3/uL (1.2-4.9); Lymphocytes Percent Auto 26.7 % (20-40); Mean Corpuscular HGB Conc 31.8 g/dl (31.0-35.0); Mean Corpuscular Hemoglobin 23.3 pg (27.0-33.0); Mean Corpuscular Volume 73.1 fL (80.0-98.0); Mean Platelet Volume 11.2 fL (9.4-12.3); Monocytes Absolute Auto 0.9 X10*3/uL (0.1-1.2); Monocytes Percent Auto 6.3 % (2-11); Neutrophils Percent Auto 63.6 % (45-73); Platelet Count 351 X10*3/uL (160-400); Red Blood Count 5.46 X10*6/uL (4.20-5.50); Red Cell Distribution Width 18.5 % (11.0-16.0)
[2023-04-26 14:58] LABS: COVID-19 Test Negative (Negative); IDNOW Serial# 152EDE1D; IDNOW Serial# 9DB6401D; Influenza A Negative (Negative); Influenza B2 Negative (Negative)
[2023-04-26 15:03] LABS: Alanine Aminotransferase 13 U/L (0-31); Albumin Level 3.8 g/dL (3.5-5.0); Alkaline Phosphatase 92 U/L (39-117); Anion Gap 12 (12-20); Aspartate Amino Transferase 16 U/L (5-31); Bilirubin Total 0.5 mg/dL (0.0-1.0); Blood Urea Nitrogen 13 mg/dL (9-16); Calcium 9.4 mg/dL (8.4-10.2); Carbon Dioxide 27 mmol/L (22-29); Chloride 104 mmol/L (96-108); Estimated Glomerular Filt Rate > 60; Glucose Random 182 mg/dL (60-115); Potassium 3.4 mmol/L (3.3-5.1); Sodium 140 mmol/L (135-145); Total Protein 8.2 g/dL (6.5-8.0)
--- NOTE | 2023-04-26 15:08 | PC.NURSE ---
pt a&ox3, iv inserted, labs drawn, pt medicated per order, lungs dim/in/ex wheezing, nasal swabs previously performed, call swan within reach, will continue to monitor
[2023-04-26 15:18] LABS: Troponin-I High Sensitivity 108.5 ng/L (<3.5-17.0)
[2023-04-26] MEDS: Albuterol Sulfate 2.5 MG, Albuterol/Iprat 2.5/0.5MG 3 ML 3 ML INHALE (15:35)
--- NOTE | 2023-04-26 15:35 | PC.NURSE ---
patient a&ox3, lungs diminished/wheezing, pt bp continues to be elevated-provider is aware, RT at bedside to do additional updraft, cardiac/vascular sonographer applied-sinus tach on monitor, call swan within reach, will continue to monitor
--- NOTE | 2023-04-26 16:08 | ECG_ITS ---
Test Reason : CHEST PAIN Blood Pressure : / mmHG Vent. Rate : 124 BPM Atrial Rate : 124 BPM P-R Int : 142 ms QRS Dur : 084 ms QT Int : 408 ms P-R-T Axes : 036 -21 103 degrees QTc Int : 586 ms Sinus tachycardia Possible Left atrial enlargement Left ventricular hypertrophy with repolarization abnormality ( R in aVL , [place] product ) Septal infarct (cited on or before 15-DEC-2022) Abnormal ECG When compared with ECG of 26-APR-2023 16:12, No significant change was found Referred By: Thelma Urena Electronically Signed By:STEFFEN ADAM MD
[2023-04-26 17:10] LABS: Troponin-I High Sensitivity 97.2 ng/L (<3.5-17.0)
[2023-04-26] MEDS: Albuterol Sulfate (0.083%) 2.5 MG/3 ML VIAL.NEB 10 MG INHALE (17:26)
--- NOTE | 2023-04-26 17:44 | PM.IMHP ---
History of Present Illness Date of Service: 04/26/23 Chief Complaint: sob 42F PMH DM, obesity, moderate persistent asthma, htn, hld, gerd, chronic diastolic chf, KALLIE - not set up with cpap yet, negative cardiac cath in 2021 after positive stress test, presented with sob. patient reports several days of worsening sob, wheezing, chest tightness, dry cough. not relieved iwth inhalers. denies fever, chills, sick contacts. in ED diffusely wheezy and tachypneic, cxr unremarkable, sats okay on room air. Review of Systems Review of Systems: Yes all other systems are reviewed and are negative [facility] Medical History Acute non-ST elevation myocardial infarction (NSTEMI) UTI (urinary tract infection) Anemia Bilateral hand numbness Bilateral hand pain HSV (herpes simplex virus) infection Smoking TIA (transient ischemic attack) DJD (degenerative joint disease) GERD (gastroesophageal reflux disease) Asthma Obesity Diabetes mellitus HTN (hypertension) Family History Mother Heart disease Diabetes Hypertension Hyperlipidemia Fibromyalgia Father No problems noted. Brother No problems noted. Brother No problems noted. Brother No problems noted. Sister Deep vein thrombosis Son No problems noted. Son No problems noted. Daughter Hypertension Daughter No problems noted. Maternal Aunt History of breast cancer Surgical History H/O cardiac catheterization Hx of tubal ligation Hx of cholecystectomy Hx of appendectomy Hx of section Social History Household Members: Family Housing: Apartment Do you presently have visiting nurse or other home services: No Alcohol intake: current Alcohol intake frequency: does not drink Patient Tobacco Use Status: Former Tobacco user Tobacco use type: Cigarette Cigarettes Per Day: 3 e-Cigarette/Vaping Use: Never Used Second Hand Smoke Exposure: No Advance Directives: No Advance Directives Information Provided: No service: No Current occupational status: employed Cognitive needs: No Hearing needs: No Vision needs: Yes (glasses) Meds Allergies Allergy/AdvReac Type Severity Reaction Status Date / Time Iodinated Contrast Media Allergy Intermediate Anaphylaxis Verified 04/26/23 11:37 latex [Latex] Allergy Unknown RASH Verified 04/26/23 11:37 Active Medications: Current Medications Albuterol/Ipratropium (Albuterol/Iprat 2.5/0.5mg 3 Ml Ampul.Neb) 3 ml INHALE RQ4H WHILE AWAKE [facility] Dextrose (Dextrose 50 % 25 Gm/50 Ml Syringe) 25 gm IVPUSH Q15M PRN; Protocol PRN Reason: per Hypoglycemia Standing Ord. Enoxaparin Sodium (Enoxaparin Sodium 40 Mg/0.4 Ml Syringe) 40 mg SUBCUT Q24H [facility] Glucose (Glucose Gel 15 Gm Gel..Gram.) 15 gm PO Q15M PRN; Protocol PRN Reason: per Hypoglycemia Standing Ord. Insulin Glargine (Insulin Glargine,Hum.Rec.Anlog 100 Unit/Ml 10 Ml Vial) 20 unit SUBCUT BID [facility] Insulin Human Lispro (Insulin Lispro 100 Unit/Ml 3 Ml Vial) 0 unit SUBCUT QIDACHS [facility]; Protocol Methylprednisolone Sodium Succinate (Methylprednisolone Sod Succ 40 Mg/Ml Vial) 40 mg IVPUSH BID [facility] Sodium Chloride (0.9 % Sodium Chloride Flush 3 Ml Syringe) 3 ml IVFLUSH QSHIFT [facility] Home Medications Medication Instructions Recorded Confirmed Last Taken Type insulin glargine 100 unit/mL (3 20 unit subcut BID 03/24/23 03/30/23 Unknown History mL) subcutaneous pen (Lantus Solostar U-100 Insulin) Physical Exam Vital Signs and Narrative: Vital Signs: Last Vital Signs Temp 98.3 F 04/26/23 15:34 Pulse 116 H 04/26/23 17:26 Resp 24 H 04/26/23 17:26 BP 206/119 H 04/26/23 15:34 Pulse Ox 96 04/26/23 15:34 O2 Del Method Room Air 04/26/23 15:34 BMI result Body Mass Index 32.6 General: AO X 3, dyspneic Resp: wheezing bilateral, mild accessory muscles used CVS: S1,S2,RRR GI: soft, non tender, non distended Neuro: motor grossly intact, alert Psych: appropriate affect, appropriate insight Results Labs 04/26/23 14:35 04/26/23 14:35 Labs: Laboratory Results - last 24 hr 01/31/24 01/31/24 01/31/24 14:19 14:35 14:44 MCV 73.1 L MCH 23.3 L MCHC 31.8 RDW 18.5 H Plt Count 351 MPV 11.2 Immature Gran % (Auto) 0.6 H Neut % (Auto) 63.6 Lymph % (Auto) 26.7 [place] % (Auto) 6.3 Eos % (Auto) 2.4 Baso % (Auto) 0.4 Lymph # (Auto) 3.7 [place] # (Auto) 0.9 Eos # (Auto) 0.3 Baso # (Auto) 0.1 Abs Immat Gran (auto) 0.08 H Absolute Neuts (auto) 9.0 H Absolute Nucleated RBC 0.000 Nucleated RBC % (auto) 0.0 VBG pH 7.44 H VBG pCO2 43 VBG pO2 51 VBG HCO3 30 H VBG O2 Saturation 79.0 VBG Base Excess 5.2 Anion Gap 12 Estim Creat Clear Calc 83.0 Estimated GFR > 60 Random Glucose 182 H Calcium 9.4 Total Bilirubin 0.5 AST 16 ALT 13 Alkaline Phosphatase 92 Total Protein 8.2 H Albumin 3.8 COVID-19 (YANN) Negative COVID-19 Clin Com See Note Influenza Type A (BENITA) Negative Influenza Type B (BENITA) Negative Influenza A & B Note See Note Imaging Radiologist's Impressions: Impressions Chest X-Ray 04/26/23 14:58 IMPRESSION: Unremarkable examination. Assessment and Plan (1) Asthma: Status: Acute Plan 42F PMH DM, obesity, moderate persistent asthma, htn, hld, gerd, chronic diastolic chf, KALLIE - not set up with cpap yet, negative cardiac cath in 2021 after positive stress test, presented with sob moderate persistent asthma with acute decompensation solumedrol, duonebs elevated troponin flat, no evidence of ACS, had negative cath in 2021 likely strain from asthma exacerbation DM with hyperglycemia Basal bolus insulin Obesity Weight loss recommended Hypertension Continue amlodipine, lisinopril, HCTZ KALLIE Outpatient follow-up DVT prophylaxis with Lovenox Full Code Quality Stroke Does the patient have a stroke diagnosis?: No VTE Prior VTE?: No VTE Risk Level:: Medical - moderate - high VTE Device Contraindication: Treatment Not Indicated VTE Drug Contraindication: N/A - Med Ordered
--- NOTE | 2023-04-26 17:57 | PHA.MEDREC ---
Addendum entered by Kristal Chowdhury RPh 04/26/23 18:48: confirmed that pt has discontinued valacyclovir, omeprazole and labetalol Original Note: Pharmacy Consult ? Medication Reconciliation Pharmacy has completed the medication reconciliation. Patient reported medications. Also reported that Dr increased dose of Zohra was not sure of new dose
--- NOTE | 2023-04-26 19:09 | PC.NURSE ---
patient a&ox3, pt c/o 01/03 chest/neck/back and arm pain, pt 122-125 on bulk sealer-sinus tach, pt htn as she has been, lungs in/ex wheezing states her chest feels very tight, coughing with speaking, call swan within reach, will continue to monitor.
[2023-04-26] MEDS: Albuterol/Iprat 2.5/0.5MG 3 ML AMPUL.NEB INHALE (19:25)
[2023-04-26] MEDS: Labetalol HCL 100 MG/20 ML VIAL 10 MG IVPUSH (19:48)
[2023-04-26] MEDS: Enoxaparin Sodium 40 MG/0.4 ML SYRINGE SUBCUT (19:49)
[2023-04-26 20:08] LABS: Troponin-I High Sensitivity 94.3 ng/L (<3.5-17.0)
--- NOTE | 2023-04-26 20:18 | MHC.EDTECH ---
This tech assumed care of patient at this time, Hourly rounds and vitals completed,patient's BP is elevated Diana RN is aware,POC taken and is 480 RN aware Patient ate 50% of supper,Belonging list completed and copy placed in chart.
--- NOTE | 2023-04-26 20:19 | PC.NURSE ---
Pts blood usgar was 480, notified Dr. Urena- no new orders needed at this time per provider.
[2023-04-26] MEDS: Insulin Lispro 100 UNIT/ML 3 ML VIAL SUBCUT (20:34)
[2023-04-26 20:38] LABS: Glucose, Whole Blood 480 mg/dL (60-115)
[2023-04-26] MEDS: Insulin Glargine,Hum.rec.anlog 100 UNIT/ML 10 ML VIAL 20 UNIT SUBCUT (21:06)
[2023-04-26 21:56] LABS: Glucose, Whole Blood 485 mg/dL (60-115)
[2023-04-26] MEDS: Insulin Regular, Human 100 UNIT/ML 3 ML VIAL IVPUSH (22:14)
[2023-04-26] MEDS: 0.9 % Sodium Chloride Flush 3 ML SYRINGE IVFLUSH (22:14)
[2023-04-26] MEDS: methylPREDNISolone Sod Succ 40 MG/ML VIAL IVPUSH (22:14)
[2023-04-26 23:33] LABS: Glucose, Whole Blood 353 mg/dL (60-115)
[2023-04-26] MEDS: diphenhydrAMINE HCL 50 MG/ML VIAL IVPUSH (23:53)
[2023-04-27] MEDS: Labetalol HCL 100 MG/20 ML VIAL 10 MG IVPUSH (00:10)
[2023-04-27 00:13] VITALS: BP 192/82; PULSE 113; RESP 18; TEMP 36.6; O2SAT 92
[2023-04-27 03:53] LABS: Glucose, Whole Blood 274 mg/dL (60-115)
[2023-04-27 04:00] VITALS: BP 160/52; PULSE 108; RESP 16; TEMP 36.3; O2SAT 100
[2023-04-27 07:00] LABS: Hematocrit 38.8 % (37.0-47.0); Hemoglobin 12.4 g/dl (12.0-16.0); Mean Platelet Volume 11.1 fL (9.4-12.3); Platelet Count 308 X10*3/uL (160-400); Red Blood Count 5.39 X10*6/uL (4.20-5.50); Red Cell Distribution Width 17.9 % (11.0-16.0); White Blood Count 17.5 X10*3/uL (4.8-10.8)
[2023-04-27 07:03] LABS: Glucose, Whole Blood 273 mg/dL (60-115)
[2023-04-27 07:10] VITALS: BP 174/84; PULSE 111; RESP 18; TEMP 36.7; O2SAT 98
[2023-04-27 07:14] LABS: Anion Gap 17 (12-20); Blood Urea Nitrogen 14 mg/dL (9-16); Calcium 9.7 mg/dL (8.4-10.2); Carbon Dioxide 21 mmol/L (22-29); Chloride 102 mmol/L (96-108); Creatinine Clr Calc Pharmacy 92.9; Estimated Glomerular Filt Rate > 60; Glucose Fasting 299 mg/dL (60-99); Iron 28 mcg/dL (30-160); Percent Iron Saturation 8 % (15-50); Potassium 3.1 mmol/L (3.3-5.1); Sodium 137 mmol/L (135-145); Total Iron Binding Capacity 345 mcg/dL (228-428); Unsaturated Iron Binding 317 ug/dL
[2023-04-27] MEDS: Albuterol/Iprat 2.5/0.5MG 3 ML AMPUL.NEB INHALE (07:38)
[2023-04-27 07:40] VITALS: PULSE 111; RESP 18; O2SAT 97
[2023-04-27] MEDS: Potassium Chloride ER 20 MEQ TAB.ER.PRT 40 MEQ PO (08:20)
[2023-04-27] MEDS: Aspirin Enteric Coated 81 MG TABLET.DR PO (08:20)
[2023-04-27] MEDS: amLODIPine Besylate 10 MG TABLET PO (08:20)
[2023-04-27] MEDS: hydroCHLOROthiazide 25 MG TABLET PO (08:20)
[2023-04-27] MEDS: Furosemide 40 MG/4 ML VIAL IVPUSH (08:21)
[2023-04-27] MEDS: methylPREDNISolone Sod Succ 40 MG/ML VIAL IVPUSH (08:21)
[2023-04-27] MEDS: 0.9 % Sodium Chloride Flush 3 ML SYRINGE IVFLUSH (08:22)
[2023-04-27] MEDS: Insulin Lispro 100 UNIT/ML 3 ML VIAL SUBCUT ×2 (08:22→11:47)
[2023-04-27] MEDS: Insulin Glargine,Hum.rec.anlog 100 UNIT/ML 10 ML VIAL 20 UNIT SUBCUT (08:22)
[2023-04-27] MEDS: Cyclobenzaprine HCl 10 MG TABLET PO (08:31)
--- NOTE | 2023-04-27 08:54 | MHC.CM.PN ---
Liseth 04/27/23, Pt is independent, she lives with her boyfriend and 3 children, she does not have home health services. For medical equipment she does not have any, is in process of getting a CPAP machine. HCP form given and discussed, Pt. will think about it and complete it. Family to transport home upon DC. CM to follow and assist with DC plan.
--- NOTE | 2023-04-27 10:33 | PM.DS ---
DS: Providers Provider Date of Service: 04/27/23 Date of admission: 04/26/23 17:39 Primary care physician: Derrek Hollingsworth MD DS: Diagnosis Discharge Diagnosis (1) Asthma: Status: Acute DS: Summary Hospital Course Hospital Course: from initial hpi: 42F PMH DM, obesity, moderate persistent asthma, htn, hld, gerd, chronic diastolic chf, KALLIE - not set up with cpap yet, negative cardiac cath in 2021 after positive stress test, presented with sob. patient reports several days of worsening sob, wheezing, chest tightness, dry cough. not relieved iwth inhalers. denies fever, chills, sick contacts. in ED diffusely wheezy and tachypneic, cxr unremarkable, sats okay on room air. hospital course: Patient was admitted for moderate persistent asthma with acute decompensation. She was treated with IV Solu-Medrol and bronchodilators and symptoms significantly improved. She has no longer wheezing and has minimal shortness of breath. She will be discharged on 5 more days of prednisone. Patient noted to have chronic elevation of troponin. No evidence of ACS. Had a negative cardiac catheterization in 2021. She can continue follow-up as outpatient. For diabetes with hyperglycemia she was given basal bolus insulin with better glucose control. For obesity weight loss recommended. For hypertension she was continued on amlodipine, lisinopril, HCTZ. For obstructive sleep apnea she should follow up outpatient to arrange for CPAP machine. Time Attestation Discharge coordination time: Greater than 30 minutes Quality: Safe Use of Opioids Does Pt have an Active Cancer Diagnosis on the Problem List?: No Quality: Stroke Does the patient have a stroke diagnosis?: No Physical Exam Vital Signs: Vital Signs: Last Vital Signs Temp 98.1 F 04/27/23 07:10 Pulse 111 H 04/27/23 07:40 Resp 18 04/27/23 07:40 BP 174/84 H 04/27/23 07:10 Pulse Ox 98 04/27/23 07:10 O2 Del Method Room Air 04/27/23 07:10 BMI result Body Mass Index 35.2 General: AO X 3, no acute distress Resp: CTA bilateral, no accessory muscles used CVS: S1,S2,RRR GI: soft, non tender, non distended Neuro: motor grossly intact, alert Psych: appropriate affect, appropriate insight DS: Data Data Completed and Pending Labs on day of discharge: Laboratory Results - last 24 hr 04/26/23 04/26/23 04/26/23 14:19 14:35 14:44 WBC 14.0 H RBC 5.46 Hgb 12.7 Hct 39.9 MCV 73.1 L MCH 23.3 L MCHC 31.8 RDW 18.5 H Plt Count 351 MPV 11.2 Immature Gran % (Auto) 0.6 H Neut % (Auto) 63.6 Lymph % (Auto) 26.7 [place] % (Auto) 6.3 Eos % (Auto) 2.4 Baso % (Auto) 0.4 Lymph # (Auto) 3.7 [place] # (Auto) 0.9 Eos # (Auto) 0.3 Baso # (Auto) 0.1 Abs Immat Gran (auto) 0.08 H Absolute Neuts (auto) 9.0 H Absolute Nucleated RBC 0.000 Nucleated RBC % (auto) 0.0 VBG pH 7.44 H VBG pCO2 43 VBG pO2 51 VBG HCO3 30 H VBG O2 Saturation 79.0 VBG Base Excess 5.2 Sodium 140 Potassium 3.4 Chloride 104 Carbon Dioxide 27 Anion Gap 12 BUN 13 Creatinine 0.86 Estim Creat Clear Calc 83.0 Estimated GFR > 60 POC Glucose Random Glucose 182 H Fasting Glucose Calcium 9.4 Iron TIBC % Saturation Unsat Iron Binding Total Bilirubin 0.5 AST 16 ALT 13 Alkaline Phosphatase 92 Troponin I High Sens 108.5 H* Total Protein 8.2 H Albumin 3.8 COVID-19 (YANN) Negative COVID-19 Clin Com See Note Influenza Type A (BENITA) Negative Influenza Type B (BENITA) Negative Influenza A & B Note See Note 04/26/23 04/26/23 04/26/23 16:34 19:41 20:15 WBC RBC Hgb Hct MCV MCH MCHC RDW Plt Count MPV Immature Gran % (Auto) Neut % (Auto) Lymph % (Auto) [place] % (Auto) Eos % (Auto) Baso % (Auto) Lymph # (Auto) [place] # (Auto) Eos # (Auto) Baso # (Auto) Abs Immat Gran (auto) Absolute Neuts (auto) Absolute Nucleated RBC Nucleated RBC % (auto) VBG pH VBG pCO2 VBG pO2 VBG HCO3 VBG O2 Saturation VBG Base Excess Sodium Potassium Chloride Carbon Dioxide Anion Gap BUN Creatinine Estim Creat Clear Calc Estimated GFR POC Glucose 480 H* Random Glucose Fasting Glucose Calcium Iron TIBC % Saturation Unsat Iron Binding Total Bilirubin AST ALT Alkaline Phosphatase Troponin I High Sens 97.2 H* 94.3 H* Total Protein Albumin COVID-19 (YANN) COVID-19 Clin Com Influenza Type A (BENITA) Influenza Type B (BENITA) Influenza A & B Note 04/26/23 04/26/23 04/27/23 21:47 23:29 03:48 WBC RBC Hgb Hct MCV MCH MCHC RDW Plt Count MPV Immature Gran % (Auto) Neut % (Auto) Lymph % (Auto) [place] % (Auto) Eos % (Auto) Baso % (Auto) Lymph # (Auto) [place] # (Auto) Eos # (Auto) Baso # (Auto) Abs Immat Gran (auto) Absolute Neuts (auto) Absolute Nucleated RBC Nucleated RBC % (auto) VBG pH VBG pCO2 VBG pO2 VBG HCO3 VBG O2 Saturation VBG Base Excess Sodium Potassium Chloride Carbon Dioxide Anion Gap BUN Creatinine Estim Creat Clear Calc Estimated GFR POC Glucose 485 H* 353 H* 274 H Random Glucose Fasting Glucose Calcium Iron TIBC % Saturation Unsat Iron Binding Total Bilirubin AST ALT Alkaline Phosphatase Troponin I High Sens Total Protein Albumin COVID-19 (YANN) COVID-19 Clin Com Influenza Type A (BENITA) Influenza Type B (BENITA) Influenza A & B Note 04/27/23 04/27/23 06:27 06:56 WBC 17.5 H RBC 5.39 Hgb 12.4 Hct 38.8 MCV 72.0 L MCH 23.0 L MCHC 32.0 RDW 17.9 H Plt Count 308 MPV 11.1 Immature Gran % (Auto) Neut % (Auto) Lymph % (Auto) [place] % (Auto) Eos % (Auto) Baso % (Auto) Lymph # (Auto) [place] # (Auto) Eos # (Auto) Baso # (Auto) Abs Immat Gran (auto) Absolute Neuts (auto) Absolute Nucleated RBC 0.000 Nucleated RBC % (auto) 0.0 VBG pH VBG pCO2 VBG pO2 VBG HCO3 VBG O2 Saturation VBG Base Excess Sodium 137 Potassium 3.1 L Chloride 102 Carbon Dioxide 21 L Anion Gap 17 BUN 14 Creatinine 0.80 Estim Creat Clear Calc 92.9 Estimated GFR > 60 POC Glucose 273 H Random Glucose Fasting Glucose 299 H Calcium 9.7 Iron 28 L TIBC 345 % Saturation 8 L Unsat Iron Binding 317 Total Bilirubin AST ALT Alkaline Phosphatase Troponin I High Sens Total Protein Albumin COVID-19 (YANN) COVID-19 Clin Com Influenza Type A (BENITA) Influenza Type B (BENITA) Influenza A & B Note Discharge Plan Discharge Anticipated Discharge Date/Time: 04/27/23 10:32 Patient Disposition: Home, Self-Care Discharge Diagnosis: asthma Referrals: Derrek Hollingsworth MD [Primary Care Provider] - 1 Week Discharge Medications: New prednisone 20 mg tablet 40 mg PO DAILY Qty: 10 0RF Continued (DME) nebulizers Misc See Rx Instructions .Route Qty: 1 0RF Rx Instructions: to use every 4 hours as needed for wheezing aspirin 81 mg tablet,delayed release (DR/EC) 81 mg PO DAILY Qty: 81 8RF hydrochlorothiazide 25 mg tablet 25 mg PO DAILY Qty: 90 8RF (DME) FreeStyle Lite Strips Strip See Rx Instructions .ROUTE .MEDSUPPLY Qty: 100 7RF Rx Instructions: BID As directed amlodipine 10 mg tablet 10 mg PO DAILY Qty: 90 2RF (DME) blood pressure monitor Kit See Rx Instructions .Route Qty: 1 0RF Rx Instructions: As directed (DME) pen needle, diabetic [Comfort EZ Pen [place]] 32 gauge x 5/16 needle See Rx Instructions .Route Qty: 100 4RF Rx Instructions: As directed injects 4X/day (DME) FreeStyle [place] 2 Jeff Misc See Rx Instructions .Route Qty: 1 0RF Rx Instructions: As directed metformin 1,000 mg tablet 1,000 mg PO BID Qty: 60 8RF (DME) blood-glucose meter [FreeStyle Lite Meter] Kit See Rx Instructions .Route Qty: 1 0RF Rx Instructions: As directed (DME) FreeStyle Lite Strips Strip See Rx Instructions .Route Qty: 100 5RF Rx Instructions: As directed tests 4 X/day (DME) lancets [FreeStyle Lancets] 28 gauge misc See Rx Instructions .Route Qty: 100 4RF Rx Instructions: As directed tests 4 X/day (DME) blood-glucose meter [FreeStyle [place] [address]] Kit See Rx Instructions .ROUTE .MEDSUPPLY Qty: 1 0RF Rx Instructions: As directed insulin glargine [Lantus Solostar U-100 Insulin] 100 unit/mL (3 mL) insulin pen 20 unit subcut BID cyclobenzaprine 10 mg tablet 10 mg PO TID PRN (Reason: muscle spasm) Trulicity 1.5 mg/0.5 mL pen injector 1.5 mg subcut WE albuterol sulfate 90 mcg/actuation aero powdr breath act w/sensor 2 inh inhalation Q4-6H PRN (Reason: shortness of breath or wheezing) Qty: 1 0RF Rx Instructions: May dispense medication equivalent accepted by patient's insurance albuterol sulfate 0.63 mg/3 mL solution for nebulization 0.63 mg inhalation Q4-6H PRN (Reason: shortness of breath or wheezing) Qty: 90 0RF Rx Instructions: May dispense medication equivalent accepted by patient's insurance (DME) lancets [FreeStyle Lancets] 28 gauge misc See Rx Instructions .ROUTE .MEDSUPPLY Qty: 100 7RF Rx Instructions: BID As directed insulin lispro [Humalog KwikPen Insulin] 100 unit/mL insulin pen 6 unit subcut TID Qty: 15 4RF (DME) FreeStyle [place] 2 Sensor Kit See Rx Instructions .Route Qty: 2 4RF Rx Instructions: As directed change every 14 days Discharge Orders: Discharge Order (Routine); Ordered 04/27/23 Ordered By: Anjum Perez Diet: Advance to usual diet Activity on Discharge: As tolerated Stand Alone Forms: Patient Portal Discharge page Care Plan Goals: recovery Health Concerns: asthma Plan of Treatment: 5 days prednisone Assessment: see above
--- NOTE | 2023-04-27 11:00 | MHC.CM.PN ---
Pt. has been medically cleared for DC, she will go home via family transport, DC plan is self care.
[2023-04-27 11:01] LABS: Glucose, Whole Blood 346 mg/dL (60-115)
== END 2023-04-27 12:17 | disposition home or self-care (01) ==
LOC: HO.ED 17:19 → HO.EDOVER 17:50 → HO.IMC 20:08
PROVIDERS: Physician Assistant; Student in an Organized Health Care Education/Training Program; Admitting Provider Internal Medicine; Emergency Provider Emergency Medicine Emergency Medical Services; PCP Internal Medicine; Visit Provider Internal Medicine
DX: J45.41 Moderate persistent asthma with (acute) exacerbation (principal); R06.02 Shortness of breath; E11.9 Type 2 diabetes mellitus without complications; D64.9 Anemia, unspecified; R05.9 Cough, unspecified; I10 Essential (primary) hypertension; R79.89 Other specified abnormal findings of blood chemistry; R07.9 Chest pain, unspecified; Z11.52 Encounter for screening for COVID-19; Z79.899 Other long term (current) drug therapy; Z79.4 Long term (current) use of insulin
CPT/HCPCS: 36415; 71045; 80048; 80053; 82803; 82947; 83540; 84484; 85025; 85027; 87502; 87635; 93005; 94640; 96365; 96366; 96372; 96375; 96376; 99222; 99285; J1200; J1650; J1920; J1940; J2920; J2930; J3475

== ENCOUNTER → 2023-04-26 16:08 | Outpatient (BNV) | payer OTHER, SELFPAY | PROVIDERS: Admitting Provider Internal Medicine; Emergency Provider Emergency Medicine Emergency Medical Services; PCP Internal Medicine; Visit Provider Internal Medicine Cardiovascular Disease | DX: R00.0 Tachycardia, unspecified (principal); R94.31 Abnormal electrocardiogram [ECG] [EKG] | CPT/HCPCS: 93010 ==

== ENCOUNTER → 2023-04-26 17:39 | Outpatient (BNV) | payer OTHER, SELFPAY | PROVIDERS: Admitting Provider Internal Medicine; Emergency Provider Emergency Medicine Emergency Medical Services; PCP Internal Medicine; Visit Provider Internal Medicine | DX: E11.65 Type 2 diabetes mellitus with hyperglycemia (principal); J45.41 Moderate persistent asthma with (acute) exacerbation | CPT/HCPCS: 99223; 99239 ==

== ENCOUNTER 2023-05-18 10:12 | Outpatient (AMB) | payer OTHER, SELFPAY ==
[2023-05-18 10:15] VITALS: BP 172/90; PULSE 98; O2SAT 100; BMI 35.1
--- NOTE | 2023-05-18 10:15 | A.OFFPC_ITS ---
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 Operator: Not Required per policy Accompanied by: Self / Same As Patient Allergies Iodinated Contrast Media Allergy (Intermediate, Verified 05/18/23 10:16) Anaphylaxis latex [Latex] Allergy (Unknown, Verified 05/18/23 10:16) RASH Tobacco use date assessed: 05/18/23 Dental Screening Dental Screen Date: 05/18/23 Did you have a dental visit in the last 12 months?: Yes Did you have a dental problem in the last 6 months where you did not have access to dental care?: No Was dental information given to patient?: Patient has dentist HPI [facility] [place] HPI Details asthma with recent hospitalization [facility] Medical History Acute non-ST elevation myocardial infarction (NSTEMI) UTI (urinary tract infection) Anemia Bilateral hand numbness Bilateral hand pain HSV (herpes simplex virus) infection Smoking TIA (transient ischemic attack) DJD (degenerative joint disease) GERD (gastroesophageal reflux disease) Asthma Obesity Diabetes mellitus HTN (hypertension) Surgical History H/O cardiac catheterization Hx of tubal ligation Hx of cholecystectomy Hx of appendectomy Hx of section Family History Mother Heart disease Diabetes Hypertension Hyperlipidemia Fibromyalgia Father No problems noted. Brother No problems noted. Brother No problems noted. Brother No problems noted. Sister Deep vein thrombosis Son No problems noted. Son No problems noted. Daughter Hypertension Daughter No problems noted. Maternal Aunt History of breast cancer Social History Household Members: Family and Children Housing: Apartment Do you presently have visiting nurse or other home services: No Alcohol intake: current Alcohol intake frequency: does not drink Patient Tobacco Use Status: Former Tobacco user Tobacco use type: Cigarette Cigarettes Per Day: 3 e-Cigarette/Vaping Use: Never Used Second Hand Smoke Exposure: No service: No Current occupational status: employed Cognitive needs: No Hearing needs: No Vision needs: Yes (glasses) Female Reproductive History Menstrual Age of Menarche: 12 Questionnaire Thrive Questionnaire Date Thrive assessed: 04/27/23 VIKRAM-7 AMB Questionnaire VIKRAM-7 Date VIKRAM - 7 assessed: 03/30/23 Source: Developed by Drs. Willian Nassar, Monique Clark, Aaron Ortega and colleagues, with an educational walter from [employer]. Review of Systems Const Denies chills, Denies headache(s) and Denies weight loss ENT Denies headache(s) Card Denies chest pain, Denies syncope, Denies irregular heart rhythm and Denies dyspnea Resp Denies chest congestion, Denies cough and Denies dyspnea GI Denies abdominal pain, Denies change in stool character, Denies nausea and Denies vomiting Musc Denies deformity and Denies joint swelling Neuro Denies syncope and Denies headache(s) Physical exam (Primary Care) Vital Signs: Last Vital Signs Pulse 98 05/18/23 10:15 BP 172/90 H 05/18/23 10:15 Pulse Ox 100 05/18/23 10:15 Oxygen Delivery Method Room Air 05/18/23 10:15 BMI result Body Mass Index 35.1 Tobacco/Smoking Status: Tobacco use Status Tobacco use date assessed 05/18/23 05/18/23 10:17 Patient Tobacco Use Status Former Tobacco user 05/18/23 10:17 Tobacco use type Cigarette 05/18/23 10:17 e-Cigarette/Vaping Use Never Used 05/18/23 10:17 Thrive Assessment: Date of Thrive Assessment Date Thrive assessed 04/27/23 05/18/23 10:17 Const General: cooperative, comfortable, no acute distress and alert Neck Neck: Yes no lymphadenopathy Thyroid: Thyroid normal Resp Effort & Inspection: normal respiratory effort Auscultation: clear to auscultation bilaterally Percussion: percussion normal Cardio Jugular venous distension: no JVD Palpation: normal PMI Rate: regular rate Rhythm: regular rhythm Heart sounds: S1 normal heart sound present and S2 normal heart sound present GI Inspection: Yes normal to inspection Palpation (GI): No hepatosplenomegaly present Skin General skin exam: no rashes or lesions noted Extrem General: Yes no clubbing, cyanosis or edema Assessment and Plan Assessment & Plan (1) Asthma: Code(s): J45.909 - Unspecified asthma, uncomplicated Plan: add steroid inhaler 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
== END 2023-05-18 10:45 | disposition home or self-care (01) ==
PROVIDERS: PCP Internal Medicine; Visit Provider Internal Medicine
DX: J45.909 Unspecified asthma, uncomplicated (principal); E11.8 Type 2 diabetes mellitus with unspecified complications
CPT/HCPCS: 99213

== ENCOUNTER 2023-07-25 18:55 | Inpatient (IN) | payer MEDICAID, SELFPAY ==
--- NOTE | ~2023-07-25 | CT_ITS ---
EXAMINATION: CT head/brain wo IV con CLINICAL INFORMATION: Reason for Exam hypertension. left sided weakness COMPARISON: 11/26/2022 TECHNIQUE: Contiguous axial imaging was performed from the skull base to vertex without intravenous contrast. Sagittal and coronal reformatted images were obtained. This CT examination was performed using dose optimization techniques as appropriate, variously including the following: * Automated exposure control * Adjustment of mA and/or kV according to patient size (this includes techniques or standardized protocols for targeted exams where dose is matched to indication/reason for exam; i.e. extremities or head) Use of iterative reconstruction technique DLP: 605.31 mGy-cm FINDINGS: The ventricles and sulci are normal in size and configuration without significant volume loss or hydrocephalus. There is no abnormal attenuation within the brain parenchyma. No territorial loss of carranza-white differentiation. No acute intracranial hemorrhage or extra-axial fluid collection. No mass lesion, significant mass effect, or herniation pattern. The orbits are grossly normal. Partially imaged mild bilateral maxillary sinus mucosal disease and patchy opacification of the left greater than right anterior ethmoid air cells. No mastoid effusion. Osseous structures are intact. CT/CT head/brain wo IV con IMPRESSION: No acute intracranial abnormality. Specifically, no CT evidence of acute intracranial hemorrhage, significant mass effect, hydrocephalus, or large territorial infarction.
--- NOTE | ~2023-07-25 | XR_ITS ---
EXAMINATION: XR CHEST CLINICAL INFORMATION: Chest pain. COMPARISON: Chest radiograph dated 04/26/2023. TECHNIQUE: Frontal view of the chest was obtained. FINDINGS: The heart is normal in size. The lungs are clear. There is no pleural effusion. No pneumothorax. No acute osseous abnormality. XR/XR chest 1V IMPRESSION: No acute cardiopulmonary disease.
--- NOTE | ~2023-07-25 | MR_ITS ---
EXAMINATION: MR BRAIN WITHOUT CONTRAST CLINICAL INFORMATION: Left-sided weakness. COMPARISON: Concurrent CTA of the head 07/26/2023. TECHNIQUE: MRI of the brain was obtained using routine sequences without contrast. FINDINGS: There is a small focus of increased diffusion signal in the anterior left periventricular white matter, without evidence of low ADC map signal, and with hyperintense T2/FLAIR signal. These findings are consistent with an evolving subacute infarct. There are no other areas of abnormal diffusion signal. No mass effect or midline shift is seen. The ventricles and sulci are normal in size. There are patchy areas of increased T2 and place signal in the periventricular and subcortical white matter which are nonspecific. They may be consistent with sequelae of migraine or vasculitis, or early/mild chronic microvascular ischemic change. No extra-axial fluid collections are seen. The brainstem appears normal. No pathologic magnetic susceptibility artifact is identified on the gradient refocused acquisition. The cerebellar tonsils have normal contour and position, and the craniocervical junction appears normal. Marrow signal and midline structures are normal. The major intracranial flow-voids at the level of the [place] of [place] are preserved. The dural venous sinus flow-voids are maintained. The mastoid air cells are well-aerated. There is mucoperiosteal thickening in the bilateral maxillary sinus with a retention cyst inferiorly on the left. There is moderate opacification of the mid and anterior ethmoid sinuses bilaterally. MR/MR head/brain wo con IMPRESSION: 1. There is a small focus of increased diffusion signal without restriction in the left periventricular white matter, which may be consistent with an evolving subacute infarct. There are no other areas of acute infarction and no hemorrhage is demonstrated. No masses are demonstrated. 2. There are nonspecific white matter changes as described above. 3. There is paranasal sinus disease as described above.
--- NOTE | ~2023-07-25 | CT_ITS ---
EXAMINATION: CT ANGIOGRAM HEAD CT ANGIOGRAM NECK CLINICAL INFORMATION: Reason for Exam worsening LLE weakness COMPARISON: MRI of the brain without contrast 07/26/2023, same day noncontrast head CT TECHNIQUE: Initial noncontrast parks worker imaging of the head and neck was performed. Comparison is made with noncontrast head CT from earlier today. Test bolus sequences followed by intravenous administration 70 mL of Omnipaque 350. Helical imaging was performed in the axial plane from the aortic arch to the skull vertex. Delayed postcontrast imaging of the head was also performed. The data was processed at the cardiac cath technologist workstation for generation of MIP sequences. Angled MIPs and volume rendered reformatted images were also generated at an offline 3D workstation. Stenoses are assessed in accordance with NASCET criteria unless otherwise indicated. DLP: 1505.34 mGy-cm This CT examination was performed using dose optimization techniques as appropriate, variously including the following: *Automated exposure control. *Adjustment of mA and/or kV according to patient size (this includes techniques or standardized protocols for targeted exams where dose is matched to indication/reason for exam; i.e. extremities or head). *Use of iterative reconstruction technique. FINDINGS: CT Head: There is no evidence of acute intracranial hemorrhage or edematous territorial infarction. There is no abnormal attenuation within the brain parenchyma. Bynum-white matter differentiation is preserved. The ventricles are normal in size and configuration. No evidence for obstructive hydrocephalus. No abnormal mass effect or midline shift. No extra-axial fluid collections. No pathologic intra-axial enhancement or regional oligemia. No acute soft tissue or osseous abnormalities. Ethmoid and maxillary sinus mucosal thickening. CT Neck: The thyroid gland and remaining cervical soft tissues are within normal limits. There is enlargement of the nasopharyngeal soft tissues, likely reflecting adenoidal hypertrophy. Multilevel cervical spondylosis. CT Upper Chest: The visualized lung apices and upper mediastinum are within normal limits. Neck CTA: Somewhat technically limited assessment of the great vessel origins and proximal vessels in the upper mediastinum and lower neck, primarily due to streak artifact related to patient body habitus. Aortic Arch: Normal contour and caliber. Classic 3 vessel branching pattern of the aortic arch. Great Vessel Origins: No significant stenosis of the branch origins. Right Common Carotid Artery: No focal stenosis or occlusion. Cervical Right Internal Carotid Artery: Normal opacification without focal stenosis or occlusion. Partial medialized retropharyngeal course. Left Common Carotid Artery: No focal stenosis or occlusion. Cervical Left Internal Carotid Artery: Normal opacification without focal stenosis or occlusion. Partial medialized retropharyngeal course. Cervical Right Vertebral Artery: No focal stenosis or occlusion. Cervical Left Vertebral Artery: No focal stenosis or occlusion. Brain CTA: Intracranial Internal Carotid Arteries: No focal stenosis or occlusion. Right Anterior Cerebral Artery: Normal A1 segment. Normal opacification of the distal TORIBIO segments. Left Anterior Cerebral Artery: Normal A1 segment. Normal opacification of the distal TORIBIO segments. Anterior Communicating Artery: Normal. Right Middle Cerebral Artery: Normal M1 segment of the MCA without focal stenosis or occlusion. Normal arborization of the distal segments. Left Middle Cerebral Artery: Normal M1 segment of the MCA without focal stenosis or occlusion. Normal arborization of the distal segments. Right Vertebral Artery: Normal V4 segment. Left Vertebral Artery: Normal V4 segment. Basilar Artery: Normal without focal stenosis or occlusion. Normal appearance of the proximal superior cerebellar arteries. Right Posterior Cerebral Artery: Normal P1 segment. Normal opacification of the distal MATERIALS MANAGEMENT CLERK segments. Left Posterior Cerebral Artery: Normal P1 segment. Normal opacification of the distal MATERIALS MANAGEMENT CLERK segments. Normal opacification of the superior sagittal, straight, transverse, and sigmoid sinuses. CT/CT angio head neck stroke IMPRESSION: No arterial high grade stenosis or large vessel occlusion in the head or neck. Above impression was communicated to Maral Pereyra on 07/26/2023 3:35 PM
--- NOTE | 2023-07-25 18:59 | ECG_ITS ---
Test Reason : cp Blood Pressure : / mmHG Vent. Rate : 102 BPM Atrial Rate : 102 BPM P-R Int : 158 ms QRS Dur : 088 ms QT Int : 382 ms P-R-T Axes : 059 -17 139 degrees QTc Int : 497 ms Sinus tachycardia Possible Left atrial enlargement Left ventricular hypertrophy ( R in aVL , Neptali product ) Cannot rule out Septal infarct (cited on or before 15-DEC-2022) Marked ST abnormality, possible lateral subendocardial injury Abnormal ECG When compared with ECG of 26-APR-2023 19:36, lateral ST depression slightly more prominent Referred By: Marisol Escobar Electronically Signed By:LAURA RIDDLE
[2023-07-25 19:38] VITALS: BP 198/111; PULSE 99; RESP 16; TEMP 36.5; O2SAT 99; BMI 34.3
[2023-07-25 20:09] LABS: MANUAL DIFF FLAG NO
[2023-07-25 20:23] LABS: Basophils Absolute Auto 0.1 X10*3/uL (0.0-0.2); Basophils Percent Auto 0.5 % (0-2); COVID-19 Test Negative (Negative); Eosinophils Absolute Auto 0.3 X10*3/uL (0.0-0.4); Eosinophils Percent Auto 1.7 % (0-4); Hematocrit 41.7 % (37.0-47.0); Hemoglobin 13.2 g/dl (12.0-16.0); IDNOW Serial# 58CA691E; Imm Gran Abs Auto 0.08 X10*3/uL (0.00-0.03); Imm Gran Pct Auto 0.5 % (0.0-0.4); Lymphocytes Absolute Auto 3.1 X10*3/uL (1.2-4.9); Mean Corpuscular HGB Conc 31.7 g/dl (31.0-35.0); Mean Corpuscular Hemoglobin 23.1 pg (27.0-33.0); Mean Corpuscular Volume 72.9 fL (80.0-98.0); Monocytes Percent Auto 6.8 % (2-11); NRBC Pct Auto 0.3 /100WBC (0.0-0.2); Neutrophils Absolute Auto 10.3 x10*3/uL (2.0-8.3); Neutrophils Percent Auto 69.5 % (45-73); Platelet Count 289 X10*3/uL (160-400); Red Blood Count 5.72 X10*6/uL (4.20-5.50); Red Cell Distribution Width 17.2 % (11.0-16.0); White Blood Count 14.9 X10*3/uL (4.8-10.8)
[2023-07-25 20:34] LABS: Troponin-I High Sensitivity 102.4 ng/L (<3.5-17.0)
[2023-07-25 20:35] LABS: Anion Gap 17 (12-20); Blood Urea Nitrogen 7 mg/dL (9-16); Calcium 9.2 mg/dL (8.4-10.2); Carbon Dioxide 24 mmol/L (22-29); Chloride 96 mmol/L (96-108); Creatinine Clr Calc Pharmacy 80.6; Estimated Glomerular Filt Rate > 60; Glucose Random 376 mg/dL (60-115); Potassium 2.9 mmol/L (3.3-5.1); Sodium 134 mmol/L (135-145)
[2023-07-25 20:45] VITALS: BP 180/102; PULSE 96; RESP 20; TEMP 36.8; O2SAT 98
--- NOTE | 2023-07-25 22:00 | PC.NURSE ---
Pt A&Ox3, reports intermittent squeezing substernal CP that started 2 days ago. Pt reports pain radiated to left arm with nausea, dizziness, headache, dry mouth and dyspnea with difficulty swallowing at night. Left hand/leg weakness noted, Pt reports this finding is new.
[2023-07-25] MEDS: Potassium Chloride Packet 20 MEQ PACKET 40 MEQ PO (22:38)
--- NOTE | 2023-07-25 22:45 | PC.NURSE ---
Pt eating [employer] burger and nikitaie, daughter at bedside.
[2023-07-25 22:55] LABS: B Type Natriuretic Peptide 152 pg/mL (<100)
--- NOTE | 2023-07-25 23:05 | ED_ITS ---
HPI - Chest Pain General Chief Complaint: Chest Pain Stated Complaint: chest pain, left arm numbness Time Seen by Provider: 07/25/23 22:18 Source: patient Mode of arrival: ambulatory Limitations: no limitations History of Present Illness HPI narrative: 41-year-old female history of hypertension diabetes presents to the ED for left side chest pain, headache, blurred visions and weakness in left upper and lower extremity for two days. Patient denies any slurred speech facial droop, loss of vision, or paralysis of extremities. Patient states she has been without her diabetic and hypertensive meds and other meds for the past month. Patient states her [employer] insurance was cut off so she was not able to afford her medications Related Data Home Medications ?Medication ?Instructions ?Recorded ?Confirmed insulin glargine 100 unit/mL (3 20 unit subcut BID 03/24/23 07/26/23 mL) subcutaneous pen (Lantus Solostar U-100 Insulin) dulaglutide 0.75 mg/0.5 mL 0.75 mg subcut WE 07/26/23 07/26/23 subcutaneous pen injector (Trulicity) insulin lispro 100 unit/mL 10 unit subcut TID 07/26/23 07/26/23 subcutaneous pen (Humalog KwikPen (U-100) Insulin) omeprazole 20 mg capsule,delayed 20 mg PO DAILY 07/26/23 07/26/23 release Previous Rx's ?Medication ?Instructions ?Recorded blood-glucose meter (FreeStyle #1 ea 09/05/20 [place] kit) nebulizers #1 ea 06/17/21 hydrochlorothiazide 25 mg tablet 25 mg PO DAILY #90 tabs 08/04/22 blood sugar diagnostic (FreeStyle #100 ea 09/12/22 Lite Strips) amlodipine 10 mg tablet 10 mg PO DAILY #90 tabs 10/05/22 albuterol sulfate 90 mcg/actuation 2 inh inhalation Q4-6H PRN 10/28/22 breath activated powder shortness of breath or wheezing #1 inhaler,sensor ea lancets 28 gauge (FreeStyle #100 ea 10/28/22 Lancets) blood pressure monitor #1 ea 11/22/22 flash glucose sensor (FreeStyle #2 ea 01/30/23 [place] 2 Sensor kit) pen needle, diabetic 32 gauge x #100 ea 02/02/23/ (Comfort EZ Pen [place]) flash glucose scanning reader #1 ea 02/05/23 (FreeStyle [place] 2 [place]) metformin 1,000 mg tablet 1,000 mg PO BID #60 tabs 02/06/23 blood sugar diagnostic (FreeStyle #100 ea 02/13/23 Lite Strips) blood-glucose meter (FreeStyle #1 ea 02/13/23 Lite Meter kit) lancets 28 gauge (FreeStyle #100 ea 02/13/23 Lancets) aspirin 81 mg tablet,delayed 81 mg PO DAILY #81 tabs 05/05/23 release cyclobenzaprine 10 mg tablet 10 mg PO TID PRN muscle spasm #90 05/05/23 tabs albuterol sulfate 0.63 mg/3 mL 0.63 mg (3 mL) inhalation Q4-6H 05/13/23 solution for nebulization PRN shortness of breath or wheezing #90 mL fluticasone propionate 115 2 puff inhalation BID #12 grams 05/18/23 mcg-salmeterol 21 mcg/actuation HFA inhaler Allergies Allergy/AdvReac Type Severity Reaction Status Date / Time Iodinated Contrast Media Allergy Intermediate Anaphylaxis Verified 07/25/23 19:41 Review of Systems 2 Review of Systems: Headache, blurry vision, chest pain, weakness of extremity. All symptoms for the past 2 days. Patient has been without diabetic meds hypertensive meds for a month. Yes all other systems are reviewed and are negative [facility] Past Medical History Medical History (Updated 07/27/23 @ 08:45 by AFTAB Machado) Hypertensive emergency Acute non-ST elevation myocardial infarction (NSTEMI) UTI (urinary tract infection) Anemia Bilateral hand numbness Bilateral hand pain HSV (herpes simplex virus) infection Smoking TIA (transient ischemic attack) DJD (degenerative joint disease) GERD (gastroesophageal reflux disease) Asthma Obesity Diabetes mellitus HTN (hypertension) Surgical History H/O cardiac catheterization Hx of tubal ligation Hx of cholecystectomy Hx of appendectomy Hx of section Family History Family History Mother Heart disease Diabetes Hypertension Hyperlipidemia Fibromyalgia Father No problems noted. Brother No problems noted. Brother No problems noted. Brother No problems noted. Sister Deep vein thrombosis Son No problems noted. Son No problems noted. Daughter Hypertension Daughter No problems noted. Maternal Aunt History of breast cancer Social History Social History Household Members: Family Housing: Apartment Do you presently have visiting nurse or other home services: No Alcohol intake: current Alcohol intake frequency: holidays/special occasions only Patient Tobacco Use Status: Never used Tobacco Tobacco use type: Cigarette Cigarettes Per Day: 3 Smoked in Last 30 Days: No e-Cigarette/Vaping Use: Never Used Second Hand Smoke Exposure: No Use of substances other than those prescribed or required for medical reasons: No Currently Displaying Signs/Symptoms of Drug Intoxication Withdrawal: No Have you been hit, kicked, punched, or otherwise hurt by someone within the past year? If so, by whom?: No Do you feel safe in your current relationship?: Yes Is there a partner from a previous relationship who is making you feel unsafe now?: No Are you made to feel afraid or neglected: No Advance Directives: No Advance Directives Information Provided: No Do you have a plan to hurt others: No Plan Recently lost weight without trying: No Nutrition Risks: No Nutritional Risk Patient : No : No Poor oral hygiene: No service: No Current occupational status: employed Cognitive needs: No Hearing needs: No Vision needs: Yes (glasses) Physical Exam 2 Vital Signs: Vital Signs: Last Vital Signs Temp 97.8 F 07/27/23 07:36 Pulse 95 07/27/23 07:36 Resp 18 07/27/23 07:36 BP 146/68 H 07/27/23 07:36 Pulse Ox 93 07/27/23 07:36 O2 Del Method Room Air 07/27/23 07:36 BMI result Body Mass Index 34.3 Const: General: cooperative, healthy appearing, comfortable, no acute distress, well developed, alert, awake and Physically active O rientation/consciousness: oriented to person, oriented to place, oriented to time and patient oriented x3 HEENT: Head: Yes normal to inspection, Yes No palpable skull fracture present, Yes normocephalic, Yes atraumatic and No abrasion Eyes: General: appearance normal, both eyes and all related structures Neck: Neck: Yes normal visual inspection, Yes full ROM, Yes no lymphadenopathy, Yes no meningeal signs, Yes trachea midline, Yes supple, No anterior neck swelling and No tender Chest: Chest palpation & inspection: normal inspection of the chest and normal palpation of entire chest wall Resp: Effort & Inspection: normal respiratory effort and able to speak in complete sentences Auscultation: clear to auscultation bilaterally Cardio: Jugular venous distension: no JVD Heart sounds: S1 normal heart sound present and S2 normal heart sound present GI: Inspection: Yes normal to inspection Palpation (GI): Soft to palpation, not firm, nontender, no guarding and not rigid : General: No CVA tenderness and Yes no CVA tenderness Back/Spine/Pelvis: Back: no CVA tenderness, No CVA tenderness and No back tenderness Skin: General skin exam: no rashes or lesions noted, elasticity normal and turgor normal Neuro: Other: Negative facial droop. Slurred speech. Left upper and left lower extremity significantly weaker than right-sided extremities. Negative pronator drift. Negative [place]berg General: oriented to person, oriented to place, oriented to time, patient oriented x3, gait normal, tone normal, moves all extremities, Normal light touch and pain sensation, no meningeal signs, no focal motor deficits, CN's II-XI intact bilaterally and normal sensation to monofilament Extrem: General: Yes normal to inspection, Yes full ROM and Yes capillary refill normal Psych: Appearance: grossly normal, well kempt and not disheveled Medications Administered Generic Name Dose Route Start Last Admin Trade Name Freq PRN Reason Stop Dose Admin Acetaminophen 650 mg 07/26/23 01:41 07/26/23 11:58 Acetaminophen 325 Mg Tablet PO 650 mg Q6H PRN Administration Pain, Mild (Pain Scale 1-3) Albuterol/Ipratropium 3 ml 07/26/23 08:00 07/27/23 07:07 Albuterol/Iprat 2.5/0.5mg 3 Ml Ampul.Neb INHALE 3 ml RQ4H WHILE AWAKE MESHA Administration Amlodipine Besylate 10 mg 07/26/23 21:00 07/26/23 20:40 Amlodipine Besylate 10 Mg Tablet PO Not Given BEDTIME [facility] Protocol Aspirin 81 mg 07/27/23 09:00 07/27/23 07:57 Aspirin Enteric Coated 81 Mg Tablet. PO 81 mg DAILY MESHA Administration Atorvastatin Calcium 80 mg 07/26/23 13:30 07/27/23 07:56 Atorvastatin Calcium 80 Mg Tablet PO 80 mg DAILY MESHA Administration Clopidogrel Bisulfate 75 mg 07/26/23 19:05 07/27/23 07:56 Clopidogrel Bisulfate 75 Mg Tablet PO 75 mg DAILY MESHA Administration Cyclobenzaprine HCl 10 mg 07/26/23 09:43 07/26/23 23:54 Cyclobenzaprine Hcl 10 Mg Tablet PO 10 mg TID PRN Administration muscle spasm Enoxaparin Sodium 40 mg 07/26/23 06:00 07/27/23 07:56 Enoxaparin Sodium 40 Mg/0.4 Ml Syringe SUBCUT 40 mg DAILY MESHA Administration Fluticasone/Vilanterol 1 puff 07/27/23 08:00 07/27/23 07:07 Fluticasone/Vilanterol 100/25 Blst.W.Dev INHALE 1 puff RDAILY [facility] Administration Hydrochlorothiazide 25 mg 07/26/23 09:45 07/27/23 07:56 Hydrochlorothiazide 25 Mg Tablet PO 25 mg DAILY [facility] Administration Protocol Ceftriaxone Sodium 1 gm/ 50 mls @ 100 mls/hr 07/26/23 13:00 07/26/23 13:34 Sodium Chloride IV Infused Q24H [facility] Infusion Insulin Glargine 24 unit 07/26/23 21:00 07/27/23 07:55 Insulin Glargine,Hum.Rec.Anlog 100 Unit/Ml 10 Ml Vial SUBCUT 24 unit BID MESHA Administration Insulin Human Lispro 0 unit 07/26/23 07:30 07/27/23 07:55 Insulin Lispro 100 Unit/Ml 3 Ml Vial SUBCUT 4 unit QIDACHS [facility] Administration Protocol Insulin Human Lispro 10 unit 07/26/23 16:30 07/27/23 07:54 Insulin Lispro 100 Unit/Ml 3 Ml Vial SUBCUT 10 unit QIDACHS [facility] Administration Lisinopril 10 mg 07/26/23 09:45 07/27/23 07:56 Lisinopril 10 Mg Tablet PO 10 mg DAILY [facility] Administration Protocol Omeprazole 20 mg 07/27/23 06:30 07/27/23 06:18 Omeprazole 20 Mg Capsule.Dr PO 20 mg DAILY@0630 [facility] Administration Prednisone 20 mg 07/27/23 09:00 07/27/23 07:56 Prednisone 20 Mg Tablet PO 20 mg DAILY MESHA Administration Sodium Chloride 3 ml 07/26/23 08:00 07/27/23 08:02 0.9 % Sodium Chloride Flush 3 Ml Syringe IVFLUSH 3 ml QSHIFT MESHA Administration Discontinued Medications Generic Name Dose Route Start Last Admin Trade Name Dennis PRN Reason Stop Dose Admin Amlodipine Besylate 10 mg 07/25/23 23:00 07/25/23 23:54 Amlodipine Besylate 10 Mg Tablet PO 07/25/23 23:01 10 mg ONCE ONE Administration Protocol Aspirin 325 mg 07/26/23 13:17 07/26/23 13:46 Aspirin 325 Mg Tablet PO 07/26/23 13:18 325 mg ONCE ONE Administration Hydrochlorothiazide 25 mg 07/25/23 23:00 07/25/23 23:54 Hydrochlorothiazide 25 Mg Tablet PO 07/25/23 23:01 25 mg ONCE ONE Administration Protocol Sodium Chloride 1,000 mls @ 999 mls/hr 07/26/23 14:45 07/26/23 16:11 Ns IV 07/26/23 15:45 Infused .Q1H1M MESHA Infusion Insulin Glargine 14 unit 07/26/23 01:50 07/26/23 07:54 Insulin Glargine,Hum.Rec.Anlog 100 Unit/Ml 10 Ml Vial SUBCUT 14 unit BID MESHA Administration Insulin Glargine 5 unit 07/26/23 12:12 07/26/23 12:25 Insulin Glargine,Hum.Rec.Anlog 100 Unit/Ml 10 Ml Vial SUBCUT 07/26/23 12:13 5 unit ONCE ONE Administration Insulin Glargine 19 unit 07/26/23 21:00 07/26/23 20:26 Insulin Glargine,Hum.Rec.Anlog 100 Unit/Ml 10 Ml Vial SUBCUT 19 unit BID MESHA Administration Insulin Human Lispro 5 unit 07/26/23 08:00 07/26/23 11:57 Insulin Lispro 100 Unit/Ml 3 Ml Vial SUBCUT 5 unit QIDACHS [facility] Administration Insulin Human Lispro 5 unit 07/26/23 12:12 07/26/23 12:25 Insulin Lispro 100 Unit/Ml 3 Ml Vial SUBCUT 07/26/23 12:13 5 unit ONCE ONE Administration Insulin Human Regular 10 unit 07/26/23 14:42 07/26/23 15:37 Insulin Regular, Human 100 Unit/Ml 3 Ml Vial IVPUSH 07/26/23 14:43 10 unit ONCE ONE Administration Iohexol 70 ml 07/26/23 15:17 07/26/23 15:17 Iohexol 350 Mg/Ml 75 Ml Infus..Btl IV 07/26/23 15:18 70 ml ONCE ONE Administration Lorazepam 0.5 mg 07/26/23 14:42 07/26/23 15:39 Lorazepam 0.5 Mg Tablet PO 07/26/23 14:43 0.5 mg ONCE ONE Administration Ondansetron HCl 4 mg 07/25/23 23:57 07/26/23 01:24 Ondansetron Hcl 4 Mg/2 Ml Vial IVPUSH 07/25/23 23:58 4 mg ONCE ONE Administration Potassium Chloride 40 meq 07/25/23 22:30 07/25/23 22:38 Potassium Chloride Packet 20 Meq Packet PO 07/25/23 22:31 40 meq ONCE ONE Administration Potassium Chloride 40 meq 07/26/23 13:36 07/26/23 14:08 Potassium Chloride Packet 20 Meq Packet PO 07/26/23 13:37 40 meq ONCE ONE Administration Prednisone 40 mg 07/26/23 02:30 07/26/23 03:05 Prednisone 20 Mg Tablet PO 40 mg DAILY MESHA Administration Medical Decision Making Medical Decision Making [facility] Narrative: 41-year-old female history of high blood pressure and diabetes without her high blood pressure diabetes meds for 1 month presenting with 2 days of headache, blurry vision, chest pain, left-sided weakness. Patient hypertensive. Patient was given diltiazem oral meds which she takes at home. Will order 2nd troponin. We will order head CT scan for 2 days of neuro symptoms. patient admitted to hospitalists for uncontrolled hypertensive and neuro symptoms for two days. also with hypokalemia. Dr. Urena agreeable with plan Differential Diagnosis Differential Diagnoses: The differential diagnosis associated with the presentation includes (stroke, RI, hypertensive emergency, hypertensive urgency) Admission/Observation Consideration of admission/observation: Escalation of care including admission/observation considered Consult Healthcare Provider Management of the patient was discussed with: Hospitalist (Dr. Urena) Lab Data [facility] Lab Attestation statement: I reviewed the patient's lab results. 07/26/23 04:37 07/27/23 07:26 Labs: Lab Results 07/25/23 07/25/23 07/25/23 Range/Units 20:00 23:02 23:12 WBC 14.9 H (4.8-10.8) X10*3/uL RBC 5.72 H (4.20-5.50) X10*6/uL Hgb 13.2 (12.0-16.0) g/dl Hct 41.7 (37.0-47.0) % MCV 72.9 L (80.0-98.0) fL MCH 23.1 L (27.0-33.0) pg MCHC 31.7 (31.0-35.0) g/dl RDW 17.2 H (11.0-16.0) % Plt Count 289 (160-400) X10*3/uL MPV 11.0 (9.4-12.3) fL Immature Gran % (Auto) 0.5 H (0.0-0.4) % Neut % (Auto) 69.5 (45-73) % Lymph % (Auto) 21.0 (20-40) % [place] % (Auto) 6.8 (2-11) % Eos % (Auto) 1.7 (0-4) % Baso % (Auto) 0.5 (0-2) % Lymph # (Auto) 3.1 (1.2-4.9) X10*3/uL [place] # (Auto) 1.0 (0.1-1.2) X10*3/uL Eos # (Auto) 0.3 (0.0-0.4) X10*3/uL Baso # (Auto) 0.1 (0.0-0.2) X10*3/uL Abs Immat Gran (auto) 0.08 H (0.00-0.03) X10*3/uL Absolute Neuts (auto) 10.3 H (2.0-8.3) x10*3/uL Absolute Nucleated RBC 0.040 H (0.0-0.012) X10*3/uL Nucleated RBC % (auto) 0.3 H (0.0-0.2) /100WBC Sodium 134 L (135-145) mmol/L Potassium 2.9 L* (3.3-5.1) mmol/L Chloride 96 (96-108) mmol/L Carbon Dioxide 24 (22-29) mmol/L Anion Gap 17 (12-20) BUN 7 L (9-16) mg/dL Creatinine 0.91 (0.5-1.4) mg/dL Estim Creat Clear Calc 80.6 Estimated GFR > 60 Random Glucose 376 H* (60-115) mg/dL Calcium 9.2 (8.4-10.2) mg/dL Troponin I High Sens 102.4 H* 114.8 H* (<3.5-17.0) ng/L B-Natriuretic Peptide 152 H (<100) pg/mL Urine Color Yellow Urine Appearance Clear Urine pH 6.0 (5.0-9.0) Ur Specific [place] 1.025 (1.005-1.025) Urine Protein 30 (1+) H (Neg-Trace) mg/dL Urine Glucose (UA) >=1000 H (Negative) mg/dL Urine Ketones Negative (Negative) mg/dL Urine Blood Negative (Negative) Urine Nitrite Positive H (Negative) Ur Leukocyte Esterase Negative (Negative) Urine RBC 0-2 (0-2) /HPF Urine WBC 0-5 (0-5) /HPF Ur Squamous Epith Cells 0-2 (0-2) /HPF Urine Bacteria 1+ (None Seen) Hyaline Casts 0-2 (0-2) /LPF Urine Test NEGATIVE (NEGATIVE) COVID-19 (YANN) Negative (Negative) COVID-19 Clin Com See Note 07/26/23 Range/Units 01:28 WBC (4.8-10.8) X10*3/uL RBC (4.20-5.50) X10*6/uL Hgb (12.0-16.0) g/dl Hct (37.0-47.0) % MCV (80.0-98.0) fL MCH (27.0-33.0) pg MCHC (31.0-35.0) g/dl RDW (11.0-16.0) % Plt Count (160-400) X10*3/uL MPV (9.4-12.3) fL Immature Gran % (Auto) (0.0-0.4) % Neut % (Auto) (45-73) % Lymph % (Auto) (20-40) % [place] % (Auto) (2-11) % Eos % (Auto) (0-4) % Baso % (Auto) (0-2) % Lymph # (Auto) (1.2-4.9) X10*3/uL [place] # (Auto) (0.1-1.2) X10*3/uL Eos # (Auto) (0.0-0.4) X10*3/uL Baso # (Auto) (0.0-0.2) X10*3/uL Abs Immat Gran (auto) (0.00-0.03) X10*3/uL Absolute Neuts (auto) (2.0-8.3) x10*3/uL Absolute Nucleated RBC (0.0-0.012) X10*3/uL Nucleated RBC % (auto) (0.0-0.2) /100WBC Sodium (135-145) mmol/L Potassium 3.6 D (3.3-5.1) mmol/L Chloride (96-108) mmol/L Carbon Dioxide (22-29) mmol/L Anion Gap (12-20) BUN (9-16) mg/dL Creatinine (0.5-1.4) mg/dL Estim Creat Clear Calc Estimated GFR Random Glucose (60-115) mg/dL Calcium (8.4-10.2) mg/dL Troponin I High Sens (<3.5-17.0) ng/L B-Natriuretic Peptide (<100) pg/mL Urine Color Urine Appearance Urine pH (5.0-9.0) Ur Specific [place] (1.005-1.025) Urine Protein (Neg-Trace) mg/dL Urine Glucose (UA) (Negative) mg/dL Urine Ketones (Negative) mg/dL Urine Blood (Negative) Urine Nitrite (Negative) Ur Leukocyte Esterase (Negative) Urine RBC (0-2) /HPF Urine WBC (0-5) /HPF Ur Squamous Epith Cells (0-2) /HPF Urine Bacteria (None Seen) Hyaline Casts (0-2) /LPF Urine Test (NEGATIVE) COVID-19 (YANN) (Negative) COVID-19 Clin Com Independent Interpretation I performed an independent interpretation of an: EKG (Sinus tachy) and CT Scan Radiology Impression Discussion of test interpretation with radiology: I have reviewed the radiologist's reading. Independent Historian Clinical information obtained from an independent historian. History obtained from or confirmed by: Other (patient) External Record Review External record reviewed: Other (prior visits) Critical Care Time Critical Care Time Critical Care Time: Yes Total Critical Care Time: 60 Attestation: Hypertensive uncontrolled. Hypertensive meds ordered. HEad CT scan. Admitted to Hospitaltists. Dr. Urena Discharge Plan Discharge Clinical Impression: Hypertension, Elevated troponin I level Patient Disposition: Admitted As Inpatient Interventions: Admission Worksheet (ED) Last Done: 07/26/23 07:50 Discharge Date/Time: 07/26/23 08:56
[2023-07-25 23:18] LABS: Appearance Urine Clear; Color Urine Yellow; Glucose Urine UA >=1000 mg/dL (Negative); Leukocyte Esterase Urine Negative (Negative); Nitrite Urine Positive (Negative); Specific Gravity - Urine 1.025 (1.005-1.025); UMIC TRIGGER UACC YES; Urine Blood Negative (Negative); Urine Ketones Negative (Negative); Urine Protein 30 (1+) mg/dL (Neg-Trace)
[2023-07-25 23:19] VITALS: BP 176/72; PULSE 100; RESP 20; TEMP 36.7; O2SAT 98
[2023-07-25 23:20] LABS: UPreg QC Valid YES; Urine Pregnancy NEGATIVE (NEGATIVE)
[2023-07-25 23:21] LABS: Bacteria Urine 1+ (None Seen); Hyaline Casts Urine 0-2 /LPF (0-2); RBC Urine 0-2 /HPF (0-2); Squamous Epithelial Cell Urine 0-2 /HPF (0-2); UACC Culture Trigger YES; WBC Urine 0-5 /HPF (0-5)
[2023-07-25 23:40] LABS: Troponin-I High Sensitivity 114.8 ng/L (<3.5-17.0)
[2023-07-25 23:54] VITALS: BP 176/72
[2023-07-25] MEDS: amLODIPine Besylate 10 MG TABLET PO (23:54)
[2023-07-25] MEDS: hydroCHLOROthiazide 25 MG TABLET PO (23:54)
[2023-07-26] VITALS (13 sets, daily range): BP systolic 108–188; BP diastolic 55–108; PULSE 98–112; RESP 16–21; TEMP 36.3–37.1; O2SAT 93–98; BMI 35.3
[2023-07-26] MEDS: ondansetron HCL 4 MG/2 ML VIAL IVPUSH (01:24)
[2023-07-26 01:45] LABS: Potassium 3.6 mmol/L (3.3-5.1)
--- NOTE | 2023-07-26 01:46 | PM.IMHP ---
History of Present Illness Date of Service: 07/26/23 Chief Complaint: Headache, nausea, chest pain This is a 42-year-old female with pertinent history of essential hypertension, insulin-dependent diabetes mellitus, asthma not on home oxygen, KALLIE not on CPAP who presents to the emergency department for evaluation of headache, nausea, chest discomfort. Patient states she has not taken her blood pressure medications in a couple of weeks as she around out of it and could not refill it due to insurance issues. Patient's symptoms started 2 days prior to presentation. She has been having constant frontal headache without any relief. Also has been having nausea and persistent midsternal chest discomfort. Patient has multiple complaints and also complains of wheezing and dyspnea which is worse with exertion. No orthopnea or PND. She also complains of left-sided weakness that she 1st noticed 2 days prior to presentation. No fever, chills, palpitations, abdominal pain, changes in urinary or bowel habits. In the emergency department, blood pressure found to be elevated. Troponin 115. Review of Systems Constitutional: Constitutional: Reports fatigue, Reports lethargy and Reports weakness Cardiovascular: Cardiovascular: Reports chest pain and Reports dyspnea on exertion Respiratory: Respiratory: Reports dyspnea on exertion and Reports wheezing Gastrointestinal: Gastrointestinal: Reports nausea Genitourinary: Genitourinary: Reports no additional female genitourinary complaints Neurologic: Reports weakness Endocrine: Endocrine: Reports fatigue Allergic/Immunologic: Allergic/Immunologic: Reports wheezing [facility] Medical History (Updated 07/26/23 @ 02:02 by Zahra Urena MD) Hypertensive emergency Acute non-ST elevation myocardial infarction (NSTEMI) UTI (urinary tract infection) Anemia Bilateral hand numbness Bilateral hand pain HSV (herpes simplex virus) infection Smoking TIA (transient ischemic attack) DJD (degenerative joint disease) GERD (gastroesophageal reflux disease) Asthma Obesity Diabetes mellitus HTN (hypertension) Family History Mother Heart disease Diabetes Hypertension Hyperlipidemia Fibromyalgia Father No problems noted. Brother No problems noted. Brother No problems noted. Brother No problems noted. Sister Deep vein thrombosis Son No problems noted. Son No problems noted. Daughter Hypertension Daughter No problems noted. Maternal Aunt History of breast cancer Surgical History H/O cardiac catheterization Hx of tubal ligation Hx of cholecystectomy Hx of appendectomy Hx of section Social History Household Members: Family and Children Housing: Apartment Do you presently have visiting nurse or other home services: No Alcohol intake: current Alcohol intake frequency: holidays/special occasions only Patient Tobacco Use Status: Former Tobacco user Tobacco use type: Cigarette Cigarettes Per Day: 3 Smoked in Last 30 Days: No e-Cigarette/Vaping Use: Never Used Second Hand Smoke Exposure: No Use of substances other than those prescribed or required for medical reasons: No Advance Directives: No Advance Directives Information Provided: No Do you have a plan to hurt others: No Plan Patient : No service: No Current occupational status: employed Cognitive needs: No Hearing needs: No Vision needs: Yes (glasses) Meds Allergies Allergy/AdvReac Type Severity Reaction Status Date / Time Iodinated Contrast Media Allergy Intermediate Anaphylaxis Verified 07/25/23 19:41 Home Medications ?Medication ?Instructions ?Recorded ?Confirmed ?Last Taken ?Type insulin glargine 100 unit/mL (3 20 unit subcut BID 03/24/23 04/26/23 04/25/23 History mL) subcutaneous pen (Lantus Solostar U-100 Insulin) dulaglutide 1.5 mg/0.5 mL 1.5 mg subcut WE 04/26/23 04/26/23 04/25/23 History subcutaneous pen injector (Trulicity) Physical Exam Vital Signs and Narrative: Vital Signs: Last Vital Signs Temp 98.1 F 07/25/23 23:19 Pulse 106 H 07/26/23 01:26 Resp 18 07/26/23 01:26 BP 185/108 H 07/26/23 01:26 Pulse Ox 97 07/26/23 01:26 O2 Del Method Room Air 07/26/23 01:26 BMI result Body Mass Index 34.3 Middle-aged female lying in bed in no distress Neck supple, no JVD Regular rate and rhythm, S1-S2 heard Bilateral wheezing appreciated Abdomen soft nontender, no guarding, no rigidity Patient is awake, alert and oriented to self, place, time and person ; no facial droop, no nystagmus, left-sided weakness present, no tongue deviation Psych: Normal mood No pedal edema Results Labs 07/25/23 20:00 05/01/24 01:28 Labs: Laboratory Results - last 24 hr 07/25/23 07/25/23 07/25/23 20:00 23:02 23:12 MCV 72.9 L MCH 23.1 L MCHC 31.7 RDW 17.2 H Plt Count 289 MPV 11.0 Immature Gran % (Auto) 0.5 H Neut % (Auto) 69.5 Lymph % (Auto) 21.0 [place] % (Auto) 6.8 Eos % (Auto) 1.7 Baso % (Auto) 0.5 Lymph # (Auto) 3.1 [place] # (Auto) 1.0 Eos # (Auto) 0.3 Baso # (Auto) 0.1 Abs Immat Gran (auto) 0.08 H Absolute Neuts (auto) 10.3 H Absolute Nucleated RBC 0.040 H Nucleated RBC % (auto) 0.3 H Anion Gap 17 Estim Creat Clear Calc 80.6 Estimated GFR > 60 Random Glucose 376 H* Calcium 9.2 Troponin I High Sens 102.4 H* 114.8 H* B-Natriuretic Peptide 152 H Urine Color Yellow Urine Appearance Clear Urine pH 6.0 Ur Specific [place] 1.025 Urine Protein 30 (1+) H Urine Glucose (UA) >=1000 H Urine Ketones Negative Urine Blood Negative Urine Nitrite Positive H Ur Leukocyte Esterase Negative Urine RBC 0-2 Urine WBC 0-5 Ur Squamous Epith Cells 0-2 Urine Bacteria 1+ Hyaline Casts 0-2 Urine Test NEGATIVE COVID-19 (YANN) Negative COVID-19 Clin Com See Note Imaging Radiologist's Impressions: Impressions Chest X-Ray 07/25/23 19:55 IMPRESSION: No acute cardiopulmonary disease. Assessment and Plan (1) Hypertensive emergency: Status: Resolved Plan This is a 42-year-old female with pertinent history of essential hypertension, insulin-dependent diabetes mellitus, asthma not on home oxygen, KALLIE not on CPAP who presents to the emergency department for evaluation of headache, nausea, chest discomfort. #. Hypertensive urgency/emergency: As she ran out of her home medications. Patient was given amlodipine and hydrochlorothiazide the ER. Continue home antihypertensives once reconciled by pharmacy #. Left-sided heaviness/weakness: ?In the setting of above. Obtaining MRI to rule out acute CVA #. Elevated troponin, demand: Troponins flat. Had a negative catheterization in 2021 #. Mild exacerbation of asthma: Initiating systemic steroids, scheduled duoNebs. Continue home inhaler #. Insulin-dependent diabetes mellitus with hyperglycemia: Initiating basal plus insulin regimen #. KALLIE: Not on CPAP at bedtime #. Obesity: Counseled regarding diet and exercise Med rec pending DVT prophylaxis: Lovenox Full code Admit as inpatient and will require two night minimum hospital stay for close monitoring of blood pressure, respiratory status, evaluation of left-sided weakness (as above), which is not possible in a lesser acute setting. Quality Stroke Does the patient have a stroke diagnosis?: No VTE Prior VTE?: No VTE Risk Level:: Medical - moderate - high VTE Device Contraindication: Treatment Not Indicated VTE Drug Contraindication: N/A - Med Ordered
[2023-07-26] MEDS: Insulin Glargine,Hum.rec.anlog 100 UNIT/ML 10 ML VIAL 14 UNIT SUBCUT ×2 (03:05→07:54)
[2023-07-26] MEDS: predniSONE 20 MG TABLET 40 MG PO (03:05)
[2023-07-26] MEDS: Enoxaparin Sodium 40 MG/0.4 ML SYRINGE SUBCUT (05:18)
[2023-07-26 05:20] LABS: MANUAL DIFF FLAG NO
[2023-07-26 05:29] LABS: Basophils Absolute Auto 0.1 X10*3/uL (0.0-0.2); Basophils Percent Auto 0.4 % (0-2); Eosinophils Absolute Auto 0.2 X10*3/uL (0.0-0.4); Eosinophils Percent Auto 1.7 % (0-4); Hemoglobin 12.7 g/dl (12.0-16.0); Imm Gran Abs Auto 0.07 X10*3/uL (0.00-0.03); Imm Gran Pct Auto 0.5 % (0.0-0.4); Lymphocytes Absolute Auto 2.9 X10*3/uL (1.2-4.9); Mean Corpuscular HGB Conc 31.8 g/dl (31.0-35.0); Mean Corpuscular Hemoglobin 22.9 pg (27.0-33.0); Mean Corpuscular Volume 72.2 fL (80.0-98.0); Monocytes Percent Auto 7.1 % (2-11); Neutrophils Absolute Auto 9.1 x10*3/uL (2.0-8.3); Neutrophils Percent Auto 68.3 % (45-73); Platelet Count 288 X10*3/uL (160-400); Red Blood Count 5.54 X10*6/uL (4.20-5.50); Red Cell Distribution Width 16.2 % (11.0-16.0); White Blood Count 13.3 X10*3/uL (4.8-10.8)
[2023-07-26 05:42] LABS: Anion Gap 15 (12-20); Blood Urea Nitrogen 9 mg/dL (9-16); Calcium 9.4 mg/dL (8.4-10.2); Carbon Dioxide 24 mmol/L (22-29); Chloride 97 mmol/L (96-108); Creatinine Clr Calc Pharmacy 100.5; Estimated Glomerular Filt Rate > 60; Glucose Random 398 mg/dL (60-115); Sodium 133 mmol/L (135-145)
[2023-07-26 05:54] LABS: Troponin-I High Sensitivity 98.4 ng/L (<3.5-17.0)
--- NOTE | 2023-07-26 05:54 | PC.NURSE ---
POC 398, Dr. fields made aware.
--- NOTE | 2023-07-26 05:58 | PC.NURSE ---
Pt ambulated independently to BR with steady gait.
[2023-07-26 07:32] LABS: Glucose, Whole Blood 474 mg/dL (60-115)
[2023-07-26] MEDS: Insulin Lispro 100 UNIT/ML 3 ML VIAL SUBCUT ×7 (07:51→20:26)
[2023-07-26] MEDS: 0.9 % Sodium Chloride Flush 3 ML SYRINGE IVFLUSH ×2 (08:05→23:55)
[2023-07-26 08:18] LABS: Estimated Average Glucose 321 mg/dL; Hemoglobin A1c % 12.8 % (<6.0)
--- NOTE | 2023-07-26 08:38 | PHA.MEDREC ---
Pharmacy Consult ? Medication Reconciliation Pharmacy has completed the medication reconciliation. Spoke with patient who was a proper historian.
--- NOTE | 2023-07-26 08:45 | PC.NURSE ---
Resumed care of patient at 0700,she is a.ox4, answering all questions, denies any CP at this time. Pt able to ambulate to BR independently. PT POC 474, Maral Pereyra ordered 5 extra units of insulin to give with 10units from sliding scale. Pt being brought up to floor room at this time.
[2023-07-26] MEDS: Albuterol/Iprat 2.5/0.5MG 3 ML AMPUL.NEB INHALE ×3 (09:02→19:53)
[2023-07-26] MEDS: lisinopriL 10 MG TABLET PO (10:14)
--- NOTE | 2023-07-26 10:14 | MHC.CM.PN ---
Per ROUNDS discussion, Patient has had difficulty getting her meds r/t insurance issues; CM has made a referral to [facility].CM will follow.
[2023-07-26] MEDS: hydroCHLOROthiazide 25 MG TABLET PO (10:15)
--- NOTE | 2023-07-26 10:25 | MHC.CM.PN ---
CM met with Patient at bedside . 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 Home/self care is the goal and CM has initiated and will follow for dc planning.PCP is Dr. Derrek Hollingsworth. Patient explains that she has submitted the paperwork to get onto [employer] insurance(having trouble getting her meds); CM made a referral to [facility] to assist. CM will follow.
--- NOTE | 2023-07-26 10:30 | MHC.CM.PN ---
Patient's Aunt Rosey is the HCP.
[2023-07-26] MEDS: Acetaminophen 325 MG TABLET 650 MG PO (11:58)
--- NOTE | 2023-07-26 12:14 | HO.PM.IMPN ---
Subjective Subjective Date of Service: 07/26/23 Interval History: Seen in follow up for hypertensive urgency, left sided weakness/heaviness Interval history: Still reporting left sided weakness/heaviness day 3 of symptoms. NO headache, chest pain, dizziness, vision changes. Still reporting sob/wheezing Review of Systems Review of Systems: Yes all other systems are reviewed and are negative Physical Exam Vital Signs: Vital Signs: Last Vital Signs Temp 97.8 F 07/26/23 11:45 Pulse 101 H 07/26/23 11:58 Resp 18 07/26/23 11:58 BP 172/88 H 07/26/23 11:45 Pulse Ox 93 07/26/23 11:45 O2 Del Method Room Air 07/26/23 11:45 BMI result Body Mass Index 35.3 Constitutional - Awake and Alert, No apparent distress Eyes - PERRLA, EOMI Cardiovascular - S1S2, RRR, No edema Respiratory - Normal lung expansion, Normal respiratory effort, No respiratory distress, CTA bilaterally Gastrointestinal - NT / ND; +BS; No rebound or guarding Extremities - no calf tenderness bilaterally, no swelling Skin - Warm/Dry Neurological - Alert & oriented x3, CN II-XII in tact, 5/5 strength RUE and RLE. 4/5 strength LUE and LLE Psychological - Appropriate affect Objective Data Active Medications Acetaminophen (Acetaminophen 325 Mg Tablet) 650 mg PO Q6H PRN PRN Reason: Pain, Mild (Pain Scale 1-3) Last Admin: 07/26/23 11:58 Dose: 650 mg Documented By: TEETEE Albuterol Sulfate (Albuterol Sulfate 90 Mcg 8 Gm Inhaler) 2 puff INHALE Q4H PRN PRN Reason: shortness of breath or wheezing Albuterol/Ipratropium (Albuterol/Iprat 2.5/0.5mg 3 Ml Ampul.Neb) 3 ml INHALE RQ4H WHILE AWAKE [facility] Last Admin: 07/26/23 11:56 Dose: 3 ml Documented By: MARY Amlodipine Besylate (Amlodipine Besylate 10 Mg Tablet) 10 mg PO BEDTIME [facility]; Protocol Aspirin (Aspirin Enteric Coated 81 Mg Tablet.) 81 mg PO DAILY [facility] Cyclobenzaprine HCl (Cyclobenzaprine Hcl 10 Mg Tablet) 10 mg PO TID PRN PRN Reason: muscle spasm Enoxaparin Sodium (Enoxaparin Sodium 40 Mg/0.4 Ml Syringe) 40 mg SUBCUT DAILY [facility] Last Admin: 07/26/23 05:18 Dose: 40 mg Documented By: AAKASH Fluticasone/Vilanterol (Fluticasone/Vilanterol 100/25 Blst.W.Dev) 1 puff INHALE RDAILY [facility] Glucose (Glucose Gel 15 Gm Gel..Gram.) 15 gm PO Q15M PRN; Protocol PRN Reason: per Hypoglycemia Standing Ord. Hydrochlorothiazide (Hydrochlorothiazide 25 Mg Tablet) 25 mg PO DAILY [facility]; Protocol Last Admin: 07/26/23 10:15 Dose: 25 mg Documented By: TEETEE Dextrose (D10) 250 mls @ 750 mls/hr IV Q15M PRN; Protocol PRN Reason: per Hypoglycemia Standing Ord. Insulin Glargine (Insulin Glargine,Hum.Rec.Anlog 100 Unit/Ml 10 Ml Vial) 5 unit SUBCUT ONCE ONE Stop: 07/26/23 12:13 Insulin Glargine (Insulin Glargine,Hum.Rec.Anlog 100 Unit/Ml 10 Ml Vial) 19 unit SUBCUT BID [facility] Insulin Human Lispro (Insulin Lispro 100 Unit/Ml 3 Ml Vial) 0 unit SUBCUT QIDACHS [facility]; Protocol Last Admin: 07/26/23 11:56 Dose: 10 unit Documented By: TEETEE Insulin Human Lispro (Insulin Lispro 100 Unit/Ml 3 Ml Vial) 10 unit SUBCUT QIDACHS [facility] Insulin Human Lispro (Insulin Lispro 100 Unit/Ml 3 Ml Vial) 5 unit SUBCUT ONCE ONE Stop: 07/26/23 12:13 Lisinopril (Lisinopril 10 Mg Tablet) 10 mg PO DAILY [facility]; Protocol Last Admin: 07/26/23 10:14 Dose: 10 mg Documented By: TEETEE Melatonin (Melatonin 3 Mg Tablet) 6 mg PO BEDTIME PRN PRN Reason: Insomnia Omeprazole (Omeprazole 20 Mg Capsule.) 20 mg PO DAILY@0630 [facility] Ondansetron HCl (Ondansetron Hcl 4 Mg/2 Ml Vial) 4 mg IVPUSH Q8H PRN PRN Reason: Nausea and Vomiting Prednisone (Prednisone 20 Mg Tablet) 40 mg PO DAILY [facility] Last Admin: 07/26/23 03:05 Dose: 40 mg Documented By: AAKASH Sodium Chloride (0.9 % Sodium Chloride Flush 3 Ml Syringe) [facility] Last Admin: 07/26/23 08:05 Dose: 3 ml Documented By: MARIAM Labs 07/26/23 04:37 07/26/23 04:37 Labs: Laboratory Results - last 24 hr 07/25/23 07/25/23 07/25/23 20:00 23:02 23:12 MCV 72.9 L MCH 23.1 L MCHC 31.7 RDW 17.2 H Plt Count 289 MPV 11.0 Immature Gran % (Auto) 0.5 H Neut % (Auto) 69.5 Lymph % (Auto) 21.0 [place] % (Auto) 6.8 Eos % (Auto) 1.7 Baso % (Auto) 0.5 Lymph # (Auto) 3.1 [place] # (Auto) 1.0 Eos # (Auto) 0.3 Baso # (Auto) 0.1 Abs Immat Gran (auto) 0.08 H Absolute Neuts (auto) 10.3 H Absolute Nucleated RBC 0.040 H Nucleated RBC % (auto) 0.3 H Anion Gap 17 Estim Creat Clear Calc 80.6 Estimated GFR > 60 POC Glucose Random Glucose 376 H* Estimat Average Glucose Hemoglobin A1c % Calcium 9.2 Troponin I High Sens 102.4 H* 114.8 H* B-Natriuretic Peptide 152 H Urine Color Yellow Urine Appearance Clear Urine pH 6.0 Ur Specific [place] 1.025 Urine Protein 30 (1+) H Urine Glucose (UA) >=1000 H Urine Ketones Negative Urine Blood Negative Urine Nitrite Positive H Ur Leukocyte Esterase Negative Urine RBC 0-2 Urine WBC 0-5 Ur Squamous Epith Cells 0-2 Urine Bacteria 1+ Hyaline Casts 0-2 Urine Test NEGATIVE COVID-19 (YANN) Negative COVID-19 Clin Com See Note 07/26/23 07/26/23 07/26/23 04:37 07:28 07:37 MCV 72.2 L MCH 22.9 L MCHC 31.8 RDW 16.2 H Plt Count 288 MPV Not Reportable Immature Gran % (Auto) 0.5 H Neut % (Auto) 68.3 Lymph % (Auto) 22.0 [place] % (Auto) 7.1 Eos % (Auto) 1.7 Baso % (Auto) 0.4 Lymph # (Auto) 2.9 [place] # (Auto) 1.0 Eos # (Auto) 0.2 Baso # (Auto) 0.1 Abs Immat Gran (auto) 0.07 H Absolute Neuts (auto) 9.1 H Absolute Nucleated RBC 0.000 Nucleated RBC % (auto) 0.0 Anion Gap 15 Estim Creat Clear Calc 100.5 Estimated GFR > 60 POC Glucose 474 H* Random Glucose 398 H* Estimat Average Glucose 321 Hemoglobin A1c % 12.8 H Calcium 9.4 Troponin I High Sens 98.4 H* B-Natriuretic Peptide Urine Color Urine Appearance Urine pH Ur Specific [place] Urine Protein Urine Glucose (UA) Urine Ketones Urine Blood Urine Nitrite Ur Leukocyte Esterase Urine RBC Urine WBC Ur Squamous Epith Cells Urine Bacteria Hyaline Casts Urine Test COVID-19 (YANN) COVID-19 Meldium 07/26/23 11:47 MCV MCH MCHC RDW Plt Count MPV Immature Gran % (Auto) Neut % (Auto) Lymph % (Auto) [place] % (Auto) Eos % (Auto) Baso % (Auto) Lymph # (Auto) [place] # (Auto) Eos # (Auto) Baso # (Auto) Abs Immat Gran (auto) Absolute Neuts (auto) Absolute Nucleated RBC Nucleated RBC % (auto) Anion Gap Estim Creat Clear Calc Estimated GFR POC Glucose 406 H* Random Glucose Estimat Average Glucose Hemoglobin A1c % Calcium Troponin I High Sens B-Natriuretic Peptide Urine Color Urine Appearance Urine pH Ur Specific [place] Urine Protein Urine Glucose (UA) Urine Ketones Urine Blood Urine Nitrite Ur Leukocyte Esterase Urine RBC Urine WBC Ur Squamous Epith Cells Urine Bacteria Hyaline Casts Urine Test COVID-19 (YANN) COVID-19 Clin Com Assessment and Plan (1) Elevated troponin I level: Status: Acute (2) Left-sided weakness: Status: Acute (3) Hypertensive emergency: Status: Acute Plan 42-year-old female with pertinent history of essential hypertension, insulin-dependent diabetes mellitus, asthma not on home oxygen, KALLIE not on CPAP admitted for hypertensive emergency with possible evolving CVA #Hypertensive emergency -blood pressures improving -Elevated but flat tropinins -Continue amlodipine 10mg but change to nightly dosing. Continue hctz 25mg and add [id number] daily -Monitor on telemetry. Close monitoring of blood pressues #Left-sided weakness -onset about 48-72 hours ago -MRI concerning for evolving CVA with persistent left sided weakness -check carotid doppler -Give 325 mg asa now, continue 81mg daily -Give atorvastatin 80mg. Check lipid profile -A1c 12.8%, plan as below -echo -neurology consult -passed swallow eval. Continue neuro checks given evolving cva on mri. stroke edu -blood pressure management given onset of symptoms >48 hours -Continue tele monitoring #Elevated troponin -likely r/t demand. Trops flat. Negative catheterization 2021 -check echo given above -no chest pain on exam -check ddimer given tachycardia #Mild asthma exacerbation -continue steroids, nebs, albuterol prn #SIRS criteria -chronic leukocytosis, trending down. Likely in part r/t steroid use. Outpt followup -Tachycardia likely r/t albuterol use -low suspicion for sepsis -check ddimer as above #asymptomatic bacteriuria -await cultures. hold one empiric abx #Acute hypokalemia -likely r/t albuterol use -give 40meq PO KCl now -follow lytes #Acute hyponatremia -likely r/t hyperglycemia #Insulin dependent type 2 diabetes- uncontrolled wtih A1c 12.8% complicated by steroid induced hyperglycemia -increase lantus to 19 units BID -Standing admelog 10 units and SSI QIDACHS -poc glucose, diabetic diet #KALLIE -noncompliant with cpap. counseled on importance of use #Medication noncompliance -r/t insurance issues. Discussed with CM DVT prophylaxis: Lovenox Full code d/w Dr Alonso Pt requires ongoing inpt stay due to hypertensive emergency with elevated troponins, evolving CVA requiring close monitoring, blood pressure medication adjustment, and expert consultation Quality Stroke Does the patient have a stroke diagnosis?: No VTE Prior VTE?: No VTE Risk Level:: Medical - moderate - high VTE Device Contraindication: Treatment Not Indicated VTE Drug Contraindication: N/A - Med Ordered
[2023-07-26] MEDS: Insulin Glargine,Hum.rec.anlog 100 UNIT/ML 10 ML VIAL SUBCUT (12:25)
[2023-07-26] MEDS: cefTRIAXone sodium 1 GM in 0.9 % Sodium Chloride 50 ML IV (13:04)
[2023-07-26 13:45] LABS: Cholesterol 190 mg/dL (<200); HDL Cholesterol 37 mg/dL (>40); LDL Cholesterol Calculated 119 mg/dL (<100); Triglycerides 171 mg/dL (<150)
[2023-07-26] MEDS: Aspirin 325 MG TABLET PO (13:46)
[2023-07-26] MEDS: Atorvastatin Calcium 80 MG TABLET PO (13:47)
--- NOTE | 2023-07-26 13:55 | ECG_ITS ---
Test Reason : chest pain Blood Pressure : / mmHG Vent. Rate : 104 BPM Atrial Rate : 104 BPM P-R Int : 162 ms QRS Dur : 092 ms QT Int : 388 ms P-R-T Axes : 059 -15 132 degrees QTc Int : 510 ms Sinus tachycardia Left ventricular hypertrophy with repolarization abnormality ( R in aVL , [place] product , Romhilt-Emmanuel ) Abnormal ECG When compared with ECG of 25-JUL-2023 18:59, No significant change was found Referred By: Maral Pereyra Electronically Signed By:LAURA RIDDLE
[2023-07-26] MEDS: Potassium Chloride Packet 20 MEQ PACKET 40 MEQ PO (14:08)
[2023-07-26 14:12] LABS: D Dimer High Sensitivity < 150 NG/ML
[2023-07-26 14:24] LABS: Glucose, Whole Blood 448 mg/dL (60-115)
--- NOTE | 2023-07-26 14:43 | PM.EVENT ---
Event Note Date of Service: 07/26/23 Event Note: Pt with worsening LLE weakness that started about 2 hours ago. She recalls walking to the bathroom- states she has had to lift her LLE physically to move it x 3 days but 2 hours ago was able to ambulate to the bathroom. Since then has had worsening LLE weakness. Stroke team notified and pt seen and examined at bedside with neruology RN, Margarita. Pt has positive left sided pronator drift with 3/5 LUE and 2/5 LLE strength. CN II-XII in tact. Sensation decreased on LLE. Discussed with neurologist. Will check CTA head/neck given evolving symptoms. Given duration since symptom onset and presentation with hypertensive urgency/emergency with associated elevated troponins, it was elected to lower blood pressure by resuming home medications. BP this morning was 186/86 and 172/88 on recheck. She was given HCTZ 25mg and lisinopril 10mg this morning with drop in blood pressure to 115/59 now with worsening stroke like symptoms as above. Unfortunately has been noncompliant with home meds over the last month and on review of record has had uncontrolled blood pressures dating back months. MRI resulted later this morning shows evolving CVA. She is again complaining of chest pain radiating to the posterior neck and left shoulder. Chest pain is pleuritic increasing with deep inspiration and is reproducible to palpation. EKG repeated unchanged from priors. Will repeat Trop now. She is endorsing anxiety and is ordered for 0.5mg PO ativan. 1L IV NS fluid bolus ordered to increase blood pressure. Glucose levels also remain uncontrolled. Give addl 10 units regular insulin now. Lantus increased to 19 units BID with 10 units standing admelog and SSI as ordered as noted in progress note. She was also not on diabetic diet which has been amended. Continue tele. Neuro checks changed to q2h. Will continue following closely. Time Spent With Patient Time: Total time managing care of this patient today ____ minutes.
[2023-07-26] MEDS: 0.9 % Sodium Chloride 1,000 ML 999 ML IV (15:10)
[2023-07-26] MEDS: iohexoL 350 MG/ML 75 ML INFUS..BTL 70 ML IV (15:17)
[2023-07-26] MEDS: Insulin Regular, Human 100 UNIT/ML 3 ML VIAL 10 UNIT IVPUSH (15:37)
[2023-07-26] MEDS: LORazepam 0.5 MG TABLET PO (15:39)
[2023-07-26 15:45] LABS: Troponin-I High Sensitivity 73.5 ng/L (<3.5-17.0)
--- NOTE | 2023-07-26 15:45 | P.CNNE_ITS ---
History of Present Illness Data of Consult Service Date: 07/26/23 Primary Care Provider: Derrek Hollingsworth MD [facility] Reason for consult: stroke This is a 42-year-old female with history of essential hypertension, insulin- dependent diabetes mellitus, asthma, KALLIE not on CPAP who presents to the emergency department for evaluation of headache, nausea, chest discomfort. Patient's symptoms started 2 days prior to presentation. She has been having constant frontal headache without any relief, nausea and persistent midsternal chest discomfort, wheezing and dyspnea which is worse with exertion, and left- sided weakness that she 1st noticed 2 days prior to presentation. No fever, chills, palpitations, abdominal pain, changes in urinary or bowel habits. MRI shows a tiny right frontal white matter subacute infarct. CTA mcgovern snot show any occlusive disease Review of Systems 2 Review of Systems: Headache, blurry vision, chest pain, weakness of extremity. All symptoms for the past 2 days. Patient has been without diabetic meds hypertensive meds for a month. Yes all other systems are reviewed and are negative Constitutional: Constitutional: Reports fatigue, Reports lethargy and Reports weakness Cardiovascular: Cardiovascular: Reports chest pain and Reports dyspnea on exertion Respiratory: Respiratory: Reports dyspnea on exertion and Reports wheezing Gastrointestinal: Gastrointestinal: Reports nausea Neurologic: Reports weakness Endocrine: Endocrine: Reports fatigue Allergic/Immunologic: Allergic/Immunologic: Reports wheezing PMFSH Past Medical History Medical History (Updated 07/26/23 @ 13:39 by AFTAB Diallo) Hypertensive emergency Acute non-ST elevation myocardial infarction (NSTEMI) UTI (urinary tract infection) Anemia Bilateral hand numbness Bilateral hand pain HSV (herpes simplex virus) infection Smoking TIA (transient ischemic attack) DJD (degenerative joint disease) GERD (gastroesophageal reflux disease) Asthma Obesity Diabetes mellitus HTN (hypertension) Family History Family History Mother Heart disease Diabetes Hypertension Hyperlipidemia Fibromyalgia Father No problems noted. Brother No problems noted. Brother No problems noted. Brother No problems noted. Sister Deep vein thrombosis Son No problems noted. Son No problems noted. Daughter Hypertension Daughter No problems noted. Maternal Aunt History of breast cancer Surgical History Surgical History H/O cardiac catheterization Hx of tubal ligation Hx of cholecystectomy Hx of appendectomy Hx of section Social History Social History Household Members: Family Housing: Apartment Do you presently have visiting nurse or other home services: No Alcohol intake: current Alcohol intake frequency: holidays/special occasions only Patient Tobacco Use Status: Never used Tobacco Tobacco use type: Cigarette Cigarettes Per Day: 3 Smoked in Last 30 Days: No e-Cigarette/Vaping Use: Never Used Second Hand Smoke Exposure: No Use of substances other than those prescribed or required for medical reasons: No Have you been hit, kicked, punched, or otherwise hurt by someone within the past year? If so, by whom?: No Do you feel safe in your current relationship?: Yes Is there a partner from a previous relationship who is making you feel unsafe now?: No Are you made to feel afraid or neglected: No Advance Directives: No Advance Directives Information Provided: No Do you have a plan to hurt others: No Plan Recently lost weight without trying: No Nutrition Risks: No Nutritional Risk Patient : No : No Poor oral hygiene: No service: No Current occupational status: employed Cognitive needs: No Hearing needs: No Vision needs: Yes (glasses) Meds Allergies Allergy/AdvReac Type Severity Reaction Status Date / Time Iodinated Contrast Media Allergy Intermediate Anaphylaxis Verified 07/25/23 19:41 Active Medications: Current Medications Acetaminophen (Acetaminophen 325 Mg Tablet) 650 mg PO Q6H PRN PRN Reason: Pain, Mild (Pain Scale 1-3) Last Admin: 07/26/23 11:58 Dose: 650 mg Albuterol Sulfate (Albuterol Sulfate 90 Mcg 8 Gm Inhaler) 2 puff INHALE Q4H PRN PRN Reason: shortness of breath or wheezing Albuterol/Ipratropium (Albuterol/Iprat 2.5/0.5mg 3 Ml Ampul.Neb) 3 ml INHALE RQ4H WHILE AWAKE [facility] Last Admin: 07/26/23 11:56 Dose: 3 ml Amlodipine Besylate (Amlodipine Besylate 10 Mg Tablet) 10 mg PO BEDTIME MESHA; Protocol Aspirin (Aspirin Enteric Coated 81 Mg Tablet.) 81 mg PO DAILY MESHA Atorvastatin Calcium (Atorvastatin Calcium 80 Mg Tablet) 80 mg PO DAILY [facility] Last Admin: 07/26/23 13:47 Dose: 80 mg Cyclobenzaprine HCl (Cyclobenzaprine Hcl 10 Mg Tablet) 10 mg PO TID PRN PRN Reason: muscle spasm Enoxaparin Sodium (Enoxaparin Sodium 40 Mg/0.4 Ml Syringe) 40 mg SUBCUT DAILY [facility] Last Admin: 07/26/23 05:18 Dose: 40 mg Fluticasone/Vilanterol (Fluticasone/Vilanterol 100/25 Blst.W.Dev) 1 puff INHALE RDAILY [facility] Glucose (Glucose Gel 15 Gm Gel..Gram.) 15 gm PO Q15M PRN; Protocol PRN Reason: per Hypoglycemia Standing Ord. Hydrochlorothiazide (Hydrochlorothiazide 25 Mg Tablet) 25 mg PO DAILY [facility]; Protocol Last Admin: 07/26/23 10:15 Dose: 25 mg Dextrose (D10) 250 mls @ 750 mls/hr IV Q15M PRN; Protocol PRN Reason: per Hypoglycemia Standing Ord. Ceftriaxone Sodium 1 gm/ (Sodium Chloride) 50 mls @ 100 mls/hr IV Q24H [facility] Last Admin: 07/26/23 13:04 Dose: 100 mls/hr Sodium Chloride (Ns) 1,000 mls @ 999 mls/hr IV .Q1H1M [facility] Stop: 07/26/23 15:45 Last Admin: 07/26/23 15:10 Dose: 999 mls/hr Insulin Glargine (Insulin Glargine,Hum.Rec.Anlog 100 Unit/Ml 10 Ml Vial) 19 unit SUBCUT BID [facility] Insulin Human Lispro (Insulin Lispro 100 Unit/Ml 3 Ml Vial) 0 unit SUBCUT QIDACHS [facility]; Protocol Last Admin: 07/26/23 11:56 Dose: 10 unit Insulin Human Lispro (Insulin Lispro 100 Unit/Ml 3 Ml Vial) 10 unit SUBCUT QIDACHS [facility] Lisinopril (Lisinopril 10 Mg Tablet) 10 mg PO DAILY [facility]; Protocol Last Admin: 07/26/23 10:14 Dose: 10 mg Melatonin (Melatonin 3 Mg Tablet) 6 mg PO BEDTIME PRN PRN Reason: Insomnia Omeprazole (Omeprazole 20 Mg Capsule.Dr) 20 mg PO DAILY@0630 [facility] Ondansetron HCl (Ondansetron Hcl 4 Mg/2 Ml Vial) 4 mg IVPUSH Q8H PRN PRN Reason: Nausea and Vomiting Prednisone (Prednisone 20 Mg Tablet) 40 mg PO DAILY [facility] Last Admin: 07/26/23 03:05 Dose: 40 mg Sodium Chloride (0.9 % Sodium Chloride Flush 3 Ml Syringe) 3 ml IVFLUSH QSHIFT [facility] Last Admin: 07/26/23 08:05 Dose: 3 ml Home Medications ?Medication ?Instructions ?Recorded ?Confirmed ?Last Taken ?Type insulin glargine 100 unit/mL (3 20 unit subcut BID 03/24/23 07/26/23 04/25/23 History mL) subcutaneous pen (Lantus Solostar U-100 Insulin) dulaglutide 0.75 mg/0.5 mL 0.75 mg subcut WE 07/26/23 07/26/23 Unknown History subcutaneous pen injector (Trulicity) insulin lispro 100 unit/mL 10 unit subcut TID 07/26/23 07/26/23 Unknown History subcutaneous pen (Humalog KwikPen (U-100) Insulin) omeprazole 20 mg capsule,delayed 20 mg PO DAILY 07/26/23 07/26/23 Unknown History release Physical Exam 2 Vital Signs: Vital Signs: Last Vital Signs Temp 97.6 F 07/26/23 15:29 Pulse 98 07/26/23 15:29 Resp 16 07/26/23 15:29 BP 117/55 L 07/26/23 15:29 Pulse Ox 94 07/26/23 15:29 O2 Del Method Room Air 07/26/23 15:29 BMI result Body Mass Index 35.3 Const: General: cooperative, healthy appearing, comfortable, no acute distress, well developed, alert, awake and Physically active O rientation/consciousness: oriented to person, oriented to place, oriented to time and patient oriented x3 HEENT: Head: Yes normal to inspection, Yes No palpable skull fracture present, Yes normocephalic, Yes atraumatic and No abrasion Eyes: General: appearance normal, both eyes and all related structures Neck: Neck: Yes normal visual inspection, Yes full ROM, Yes no lymphadenopathy, Yes no meningeal signs, Yes trachea midline, Yes supple, No anterior neck swelling and No tender Chest: Chest palpation & inspection: normal inspection of the chest and normal palpation of entire chest wall Resp: Effort & Inspection: normal respiratory effort and able to speak in complete sentences Auscultation: clear to auscultation bilaterally Cardio: Jugular venous distension: no JVD Heart sounds: S1 normal heart sound present and S2 normal heart sound present GI: Inspection: Yes normal to inspection Palpation (GI): Soft to palpation, not firm, nontender, no guarding and not rigid : General: No CVA tenderness and Yes no CVA tenderness Back/Spine/Pelvis: Back: no CVA tenderness, No CVA tenderness and No back tenderness Skin: General skin exam: no rashes or lesions noted, elasticity normal and turgor normal Neuro: Other: Cranial nerves are normal, but no visual field cut or facial droop. Speech is slightly thick.. Left upper 4+/5 and left lower extremity 3/5. Plantar responsess are flexor on the right and equivocal on the left General: oriented to person, oriented to place, oriented to time, patient oriented x3, tone normal, moves all extremities, Normal light touch and pain sensation, no meningeal signs, CN's II-XI intact bilaterally and normal sensation to monofilament Extrem: General: Yes normal to inspection, Yes full ROM and Yes capillary refill normal Psych: Appearance: grossly normal, well kempt and not disheveled Results Labs 07/26/23 04:37 07/26/23 04:37 Labs: Short CBC 07/25/23 07/26/23 Range/Units 20:00 04:37 WBC 14.9 H 13.3 H (4.8-10.8) X10*3/uL Hgb 13.2 12.7 (12.0-16.0) g/dl Hct 41.7 40.0 (37.0-47.0) % Plt Count 289 288 (160-400) X10*3/uL BMP 07/25/23 07/26/23 07/26/23 20:00 01:28 04:37 Sodium 134 L 133 L Potassium 2.9 L* 3.6 D 3.0 L Chloride 96 97 Carbon Dioxide 24 24 BUN 7 L 9 Creatinine 0.91 0.73 Calcium 9.2 9.4 Urine 07/25/23 Range/Units 23:12 Urine Color Yellow Urine Appearance Clear Urine pH 6.0 (5.0-9.0) Ur Specific Egan 1.025 (1.005-1.025) Urine Protein 30 (1+) H (Neg-Trace) mg/dL Urine Glucose (UA) >=1000 H (Negative) mg/dL Assessment and Plan (1) Elevated troponin I level: Status: Acute (2) Left-sided weakness: Status: Acute Small acute lacunar infarct in the right hemisphere white matter from small vessel disease. No evidence of occlusive vascular disease in head or neck. Recommendation: Control of blood pressure keeping systolic over 1:30. Control of sugar. PT and OT. Aspirin 81 mg a day. Plavix 75 mg a day for 6 weeks. Atorvastatin 80 mg a day. (3) Hypertensive emergency: Status: Acute Plan 42-year-old female with pertinent history of essential hypertension, insulin- dependent diabetes mellitus, asthma not on home oxygen, KALLIE not on CPAP admitted for hypertensive emergency with possible evolving CVA #Hypertensive emergency -blood pressures improving -Elevated but flat tropinins -Continue amlodipine 10mg but change to nightly dosing. Continue hctz 25mg and add [id number] daily -Monitor on telemetry. Close monitoring of blood pressues #Left-sided weakness -onset about 48-72 hours ago -MRI concerning for evolving CVA with persistent left sided weakness -check carotid doppler -Give 325 mg asa now, continue 81mg daily -Give atorvastatin 80mg. Check lipid profile -A1c 12.8%, plan as below -echo -neurology consult -passed swallow eval. Continue neuro checks given evolving cva on mri. stroke edu -blood pressure management given onset of symptoms >48 hours -Continue tele monitoring #Elevated troponin -likely r/t demand. Trops flat. Negative catheterization 2021 -check echo given above -no chest pain on exam -check ddimer given tachycardia #Mild asthma exacerbation -continue steroids, nebs, albuterol prn #SIRS criteria -chronic leukocytosis, trending down. Likely in part r/t steroid use. Outpt followup -Tachycardia likely r/t albuterol use -low suspicion for sepsis -check ddimer as above #asymptomatic bacteriuria -await cultures. hold one empiric abx #Acute hypokalemia -likely r/t albuterol use -give 40meq PO KCl now -follow lytes #Acute hyponatremia -likely r/t hyperglycemia #Insulin dependent type 2 diabetes- uncontrolled wtih A1c 12.8% complicated by steroid induced hyperglycemia -increase lantus to 19 units BID -Standing admelog 10 units and SSI QIDACHS -poc glucose, diabetic diet #KALLIE -noncompliant with cpap. counseled on importance of use #Medication noncompliance -r/t insurance issues. Discussed with CM DVT prophylaxis: Lovenox Full code d/w Dr Alonso Pt requires ongoing inpt stay due to hypertensive emergency with elevated troponins, evolving CVA requiring close monitoring, blood pressure medication adjustment, and expert consultation Procedures Date of Service Date of Service: 07/26/23
[2023-07-26 16:32] LABS: Glucose, Whole Blood 320 mg/dL (60-115)
[2023-07-26] MEDS: Insulin Lispro 100 UNIT/ML 3 ML VIAL 10 UNIT SUBCUT ×2 (16:53→20:26)
[2023-07-26 20:06] LABS: Glucose, Whole Blood 317 mg/dL (60-115)
[2023-07-26] MEDS: Clopidogrel Bisulfate 75 MG TABLET PO (20:26)
[2023-07-26] MEDS: Insulin Glargine,Hum.rec.anlog 100 UNIT/ML 10 ML VIAL 19 UNIT SUBCUT (20:26)
[2023-07-26] MEDS: Insulin Glargine,Hum.rec.anlog 100 UNIT/ML 10 ML VIAL 24 UNIT SUBCUT (21:19)
[2023-07-26] MEDS: Cyclobenzaprine HCl 10 MG TABLET PO (23:54)
[2023-07-27] VITALS (9 sets, daily range): BP systolic 113–152; BP diastolic 56–88; PULSE 88–104; RESP 17–20; TEMP 36.2–36.7; O2SAT 92–98
[2023-07-27] MEDS: Omeprazole 20 MG CAPSULE.DR PO (06:18)
--- NOTE | 2023-07-27 07:00 | CA_ITS ---
Transthoracic Echocardiogram Patient (Last, First, Middle): Amy Persaud, Gender: Female Date of : 1980 Age: 42 Procedure Date: 07/27/2023 Procedure Type: Transthoracic E[place]ocardiogram [place] [facility] [place]: 157.48 cm Weight: 87.09 kg BSA: 1.88 m2 Heart Rate: bpm BP: 172 / 88 mmHg Copy Worker: PEPE Referring MD: Maral UGALDE Symptoms: cvA, Left sided weakness, ?evolving infarct mri Study Quality: Adequate ECG Rhythm: Sinus Conclusions: - The left ventricular systolic function is normal. The calculated ejection fraction is 60% by biplane method. - There is severely increased left ventricular wall thickness. - There is no evidence of interatrial shunt by agitated saline. - No obvious valvular pathology seen on this study. Findings Left Ventricle Normal left ventricular cavity size. There is severely increased left ventricular wall thickness. The left ventricular systolic function is normal. The calculated ejection fraction is 60% by biplane method. There is no evidence of regional wall motion abnormalities. Evidence suggests grade I (mild) diastolic dysfunction. LV peak GLS severely reduced at -5.8%. Right Ventricle Normal right ventricular cavity size and systolic function. Atria There is no evidence of interatrial shunt by agitated saline. (with rest and valsalva). Aortic Valve There is a normal trileaflet aortic valve. There is no aortic valve stenosis. There is no aortic valve regurgitation. Mitral Valve The mitral valve appears normal. There is no mitral valve regurgitation. There is no mitral valve stenosis. Pulmonic Valve The pulmonic valve is likely normal. Tricuspid Valve There is no tricuspid valve regurgitation. Tricuspid regurgitation envelope is inadequate for calculation of right ventricular systolic pressure. Great Vessels The asc aorta is normal in size. Venous The inferior vena cava is normal in size and collapses greater than 50% with inspiration. Pericardium/Pleural There is a trivial pericardial effusion. Prior Study Comparison No significant change compared to prior study dated: 09/04/2020. Recommendations, Care & Conclusions No obvious valvular pathology seen on this study. Measurements 2D Linear Measurements IVSd: 1.66 0.6-0.9/0.6-1.0 cm LVIDd: 4.30 3.9-5.3/4.2-5.9 cm LVIDd Index: 2.29 2.4-3.2/2.2-3.1 cm/m2 LVIDs: 2.99 2.0-3.6 cm LVPWd: 1.59 0.7-1.1 cm LA Diam: 4.00 2.7-3.8/3.0-4.0 cm LAIDs Index: 2.13 1.5-2.3 cm/m2 LV Mass: 364.90 67-162/88-224 g LV Mass Index: 194.09 43-95/49-115 g/m2 LVOT Diam: 1.90 3.0+(-)1.3 cm 2D Systolic Function EF 4C: 60.70 >55% EF 2C: 55.70 >55% EF BiP: 59.60 >55% Mitral Valve MV Pk E: 0.81 MV PK A: 0.85 MV Decel Time: 236.00 E/A: 0.90 E'Lateral: 2.72 E'Medial: 3.26 E/E' Med: 24.70 E/E' Lat: 29.60 PHT: 69.00 MVA PHT: 3.19 Decel [place]: 3.41 Aortic Valve AoV Pk Leon: 1.71 AoV Mn Leon: 1.17 AoV VTI: 0.25 AoV Pk Grad: 12.00 Aov Mn Grad: 6.00 SUSAN Cont.VTI: 2.23 LVOT LVOT Pk Leon: 1.24 LVOT Mn Leon: 0.81 LVOT VTI: 0.19 LVOT Pk Grad: 6.00 LVOT Mn Grad: 3.00 LVOT Diam: 1.90 LVOT Area: 2.84 Diastolic Function MV Pk E: 0.81 MV Pk A: 0.85 E/A: 0.90 E'Medial: 3.26 E/E' Med: 24.70 E' Laterial: 2.72 E/E' Lat: 29.60 Right Ventricle TAPSE (mm): 20.30 TVS' Leon: 20.90 Tricuspid Valve RA Press: 3.00 Great Vessels Aorta Sinus of Valsalva: 2.90 2.0-3.5 cm Ao Asc: 3.20 2.1-3.4 cm Updated in Other Vendor System with Status of Final Dieter Owen MD electronically signed on 07/27/2023 4:28:38 PM with status of Final
[2023-07-27] MEDS: Albuterol/Iprat 2.5/0.5MG 3 ML AMPUL.NEB INHALE ×4 (07:07→19:33)
[2023-07-27] MEDS: Fluticasone/Vilanterol 100/25 BLST.W.DEV 1 PUFF INHALE (07:07)
[2023-07-27 07:41] LABS: Glucose, Whole Blood 233 mg/dL (60-115)
[2023-07-27] MEDS: Insulin Lispro 100 UNIT/ML 3 ML VIAL 10 UNIT SUBCUT ×4 (07:54→21:22)
[2023-07-27] MEDS: Insulin Glargine,Hum.rec.anlog 100 UNIT/ML 10 ML VIAL 24 UNIT SUBCUT ×2 (07:55→21:21)
[2023-07-27] MEDS: Insulin Lispro 100 UNIT/ML 3 ML VIAL SUBCUT ×4 (07:55→21:21)
[2023-07-27] MEDS: Enoxaparin Sodium 40 MG/0.4 ML SYRINGE SUBCUT (07:56)
[2023-07-27] MEDS: hydroCHLOROthiazide 25 MG TABLET PO (07:56)
[2023-07-27] MEDS: predniSONE 20 MG TABLET PO (07:56)
[2023-07-27] MEDS: lisinopriL 10 MG TABLET PO (07:56)
[2023-07-27] MEDS: Atorvastatin Calcium 80 MG TABLET PO (07:56)
[2023-07-27] MEDS: Clopidogrel Bisulfate 75 MG TABLET PO (07:56)
[2023-07-27] MEDS: Aspirin Enteric Coated 81 MG TABLET.DR PO (07:57)
[2023-07-27] MEDS: 0.9 % Sodium Chloride Flush 3 ML SYRINGE IVFLUSH ×3 (08:02→21:22)
[2023-07-27 08:36] LABS: Anion Gap 13 (12-20); Blood Urea Nitrogen 14 mg/dL (9-16); Carbon Dioxide 26 mmol/L (22-29); Chloride 98 mmol/L (96-108); Creatinine Clr Calc Pharmacy 96.7; Estimated Glomerular Filt Rate > 60; Glucose Random 234 mg/dL (60-115); Sodium 134 mmol/L (135-145)
[2023-07-27 08:39] LABS: Potassium 2.9 mmol/L (3.3-5.1)
[2023-07-27] MEDS: Potassium Chloride ER 20 MEQ TAB.ER.PRT 40 MEQ PO (11:07)
[2023-07-27 11:12] LABS: Glucose, Whole Blood 278 mg/dL (60-115)
[2023-07-27 11:19] LABS: Magnesium 1.5 mg/dL (1.6-2.6)
[2023-07-27] MEDS: cefTRIAXone sodium 1 GM in 0.9 % Sodium Chloride 50 ML IV (11:54)
--- NOTE | 2023-07-27 12:23 | MHC.CM.PN ---
CM has reached out to [employer] and awaits a return response. CM will follow.
--- NOTE | 2023-07-27 12:39 | MHC.CM.PN ---
PT is recommending Acute Rehab; CM will follow.
[2023-07-27] MEDS: Docusate Sodium 100 MG CAPSULE PO ×2 (12:47→20:03)
--- NOTE | 2023-07-27 13:28 | MHC.CM.PN ---
[facility] has no rehab benefit, per referral source.[facility] [place] involved and per Patient, [facility] is in progress .CM will follow.
--- NOTE | 2023-07-27 14:03 | MHC.CM.PN ---
Per [employer], Patient should be enrolled in a health plan (for home meds and acute rehab)by tomorrow. PA has been made aware.
--- NOTE | 2023-07-27 14:06 | HO.PM.IMPN ---
Subjective Subjective Date of Service: 07/27/23 Interval History: Seen and examined this morning Follow-up for stroke, left-sided weakness Patient reports improvement in left-sided weakness a persistent weakness with face boss strength and some residual paresthesias Review of Systems Review of Systems: Yes all other systems are reviewed and are negative Constitutional Constitutional: Denies chills and Denies fever(s) Physical Exam Vital Signs: Vital Signs: Last Vital Signs Temp 97.2 F 07/27/23 11:04 Pulse 93 07/27/23 11:04 Resp 18 07/27/23 11:04 BP 152/88 H 07/27/23 11:04 Pulse Ox 95 07/27/23 11:04 O2 Del Method Room Air 07/27/23 11:04 BMI result Body Mass Index 35.3 Const: Other: Initially declined evaluation but eventually agreeable General: no acute distress, alert and awake Nutritional Appearance: overweight Orientation/consciousness: patient oriented x3 Resp: Effort & Inspection: normal respiratory effort, able to speak in complete sentences, no respiratory distress and no use of accessory muscles Neuro: Other: left side grasp 4/5 General: patient oriented x3 and moves all extremities Motor exam (neuro): Pronator motor function not present Extrem: General: Yes no pedal edema Objective Data Active Medications Acetaminophen (Acetaminophen 325 Mg Tablet) 650 mg PO Q6H PRN PRN Reason: Pain, Mild (Pain Scale 1-3) Last Admin: 07/26/23 11:58 Dose: 650 mg Documented By: TEETEE Albuterol Sulfate (Albuterol Sulfate 90 Mcg 8 Gm Inhaler) 2 puff INHALE Q4H PRN PRN Reason: shortness of breath or wheezing Albuterol/Ipratropium (Albuterol/Iprat 2.5/0.5mg 3 Ml Ampul.Neb) 3 ml INHALE RQ4H WHILE AWAKE [facility] Last Admin: 07/27/23 11:03 Dose: 3 ml Documented By: ANGY Amlodipine Besylate (Amlodipine Besylate 10 Mg Tablet) 10 mg PO BEDTIME [facility]; Protocol Last Admin: 07/26/23 20:40 Dose: Not Given Documented By: MITUL Non-Admin Reason: Decreased Blood Pressure Aspirin (Aspirin Enteric Coated 81 Mg Tablet.) 81 mg PO DAILY [facility] Last Admin: 07/27/23 07:57 Dose: 81 mg Documented By: TEETEE Atorvastatin Calcium (Atorvastatin Calcium 80 Mg Tablet) 80 mg PO DAILY [facility] Last Admin: 07/27/23 07:56 Dose: 80 mg Documented By: TEETEE Clopidogrel Bisulfate (Clopidogrel Bisulfate 75 Mg Tablet) 75 mg PO DAILY [facility] Last Admin: 07/27/23 07:56 Dose: 75 mg Documented By: TEETEE Cyclobenzaprine HCl (Cyclobenzaprine Hcl 10 Mg Tablet) 10 mg PO TID PRN PRN Reason: muscle spasm Last Admin: 07/26/23 23:54 Dose: 10 mg Documented By: ANTOIC Docusate Sodium (Docusate Sodium 100 Mg Capsule) 100 mg PO BEDTIME [facility] Last Admin: 07/27/23 12:47 Dose: 100 mg Documented By: TEETEE Enoxaparin Sodium (Enoxaparin Sodium 40 Mg/0.4 Ml Syringe) 40 mg SUBCUT DAILY [facility] Last Admin: 07/27/23 07:56 Dose: 40 mg Documented By: TEETEE Fluticasone/Vilanterol (Fluticasone/Vilanterol 100/25 Blst.W.Dev) 1 puff INHALE RDAILY [facility] Last Admin: 07/27/23 07:07 Dose: 1 puff Documented By: ANGY Glucose (Glucose Gel 15 Gm Gel..Gram.) 15 gm PO Q15M PRN; Protocol PRN Reason: per Hypoglycemia Standing Ord. Hydrochlorothiazide (Hydrochlorothiazide 25 Mg Tablet) 25 mg PO DAILY [facility]; Protocol Last Admin: 07/27/23 07:56 Dose: 25 mg Documented By: TEETEE Dextrose (D10) 250 mls @ 750 mls/hr IV Q15M PRN; Protocol PRN Reason: per Hypoglycemia Standing Ord. Ceftriaxone Sodium 1 gm/ (Sodium Chloride) 50 mls @ 100 mls/hr IV Q24H [facility] Last Infusion: 07/27/23 12:25 Dose: Infused Documented By: TEETEE Insulin Glargine (Insulin Glargine,Hum.Rec.Anlog 100 Unit/Ml 10 Ml Vial) 24 unit SUBCUT BID [facility] Last Admin: 07/27/23 07:55 Dose: 24 unit Documented By: TEETEE Insulin Human Lispro (Insulin Lispro 100 Unit/Ml 3 Ml Vial) 0 unit SUBCUT QIDACHS [facility]; Protocol Last Admin: 07/27/23 11:48 Dose: 6 unit Documented By: TEETEE Insulin Human Lispro (Insulin Lispro 100 Unit/Ml 3 Ml Vial) 10 unit SUBCUT QIDAS [facility] Last Admin: 07/27/23 11:48 Dose: 10 unit Documented By: TEETEE Lisinopril (Lisinopril 10 Mg Tablet) 10 mg PO DAILY [facility]; Protocol Last Admin: 07/27/23 07:56 Dose: 10 mg Documented By: TEETEE Melatonin (Melatonin 3 Mg Tablet) 6 mg PO BEDTIME PRN PRN Reason: Insomnia Omeprazole (Omeprazole 20 Mg Capsule.Dr) 20 mg PO DAILY@0630 [facility] Last Admin: 07/27/23 06:18 Dose: 20 mg Documented By: ANTOIC Ondansetron HCl (Ondansetron Hcl 4 Mg/2 Ml Vial) 4 mg IVPUSH Q8H PRN PRN Reason: Nausea and Vomiting Polyethylene Glycol (Polyethylene Glycol 3350 17 Gm Powd.Pack) 17 gm PO DAILY PRN PRN Reason: Constipation Prednisone (Prednisone 20 Mg Tablet) 20 mg PO DAILY [facility] Last Admin: 07/27/23 07:56 Dose: 20 mg Documented By: TEETEE Sodium Chloride (0.9 % Sodium Chloride Flush 3 Ml Syringe) 3 ml IVFLUSH QSHIFT [facility] Last Admin: 07/27/23 08:02 Dose: 3 ml Documented By: TEETEE Labs 07/26/23 04:37 07/27/23 07:26 Labs: Laboratory Results - last 24 hr 07/26/23 07/26/23 07/26/23 13:52 14:14 14:51 Hold Purple Top D-Dimer High Sensitivty < 150 Anion Gap Estim Creat Clear Calc Estimated GFR POC Glucose 448 H* Random Glucose Calcium Magnesium Troponin I High Sens 73.5 H* 07/26/23 07/26/23 07/27/23 16:19 20:01 07:26 Hold Purple Top SEE NOTE D-Dimer High Sensitivty Anion Gap 13 Estim Creat Clear Calc 96.7 Estimated GFR > 60 POC Glucose 320 H 317 H Random Glucose 234 H Calcium 9.0 Magnesium 1.5 L Troponin I High Sens 07/27/23 07/27/23 07:38 11:06 Hold Purple Top D-Dimer High Sensitivty Anion Gap Estim Creat Clear Calc Estimated GFR POC Glucose 233 H 278 H Random Glucose Calcium Magnesium Troponin I High Sens Microbiology Microbiology Results: Microbiology 07/25/23 Unknown Urine Culture - Final Urine clean catch - Urine carranza top Strep agalactiae (Grp B) Assessment and Plan (1) Hypertensive emergency: Status: Acute (2) Left-sided weakness: Status: Acute Plan 42-year-old female with pertinent history of essential hypertension, insulin-dependent diabetes mellitus, asthma not on home oxygen, KALLIE not on CPAP admitted for hypertensive emergency with possible evolving CVA #Hypertensive emergency -blood pressures improving -Elevated but flat tropinins -Continue amlodipine 10mg but change to nightly dosing. hold hctz 25mg and [id number] daily for soft bp yesterday. -Monitor on telemetry. 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 LDL 119 -A1c 12.8%, plan as below -echo pending -seen by neurology, recs appreciated -passed swallow eval. Continue neuro checks given evolving cva on mri. stroke edu Hypokalemia Will replace with p.o. Check magnesium and replace as needed #Elevated troponin -likely r/t demand. Trops flat. Negative catheterization 2021 -check echo given above -no chest pain on exam -ddimer <150 #Mild asthma exacerbation -continue steroids, nebs, albuterol prn #SIRS criteria -chronic leukocytosis, trending down. Likely in part r/t steroid use. Outpt followup -Tachycardia likely r/t albuterol use -low suspicion for sepsis -check ddimer as above #asymptomatic bacteriuria -await cultures. hold one empiric abx #Acute hyponatremia -likely r/t hyperglycemia #Insulin dependent type 2 diabetes- uncontrolled wtih A1c 12.8% complicated by steroid induced hyperglycemia -increase lantus to 19 units BID -Standing admelog 10 units and SSI QIDACHS -poc glucose, diabetic diet #KALLIE -noncompliant with cpap. counseled on importance of use #Medication noncompliance -r/t insurance issues. Discussed with CM DVT prophylaxis: Lovenox Full code d/w Dr Alonso Pt requires ongoing inpt stay due to hypertensive emergency with elevated troponins, evolving CVA requiring close monitoring, blood pressure medication adjustment, and expert consultation Quality Stroke Does the patient have a stroke diagnosis?: No VTE Prior VTE?: No VTE Risk Level:: Medical - moderate - high VTE Device Contraindication: Treatment Not Indicated VTE Drug Contraindication: N/A - Med Ordered
[2023-07-27] MEDS: Magnesium Sulfate/H2O 2 GM/50 ML PIGGYBACK IV (15:43)
[2023-07-27 16:10] LABS: Glucose, Whole Blood 406 mg/dL (60-115)
[2023-07-27] MEDS: amLODIPine Besylate 10 MG TABLET PO (20:03)
[2023-07-27 20:58] LABS: Glucose, Whole Blood 354 mg/dL (60-115)
[2023-07-27] MEDS: Cyclobenzaprine HCl 10 MG TABLET PO (23:02)
[2023-07-27] MEDS: Melatonin 3 MG TABLET 6 MG PO (23:02)
[2023-07-28] VITALS: BP 139/65; PULSE 93; RESP 20; TEMP 36.4; O2SAT 97
[2023-07-28 03:46] VITALS: BP 147/68; PULSE 101; RESP 20; TEMP 36.1; O2SAT 94
[2023-07-28] MEDS: Omeprazole 20 MG CAPSULE.DR PO (05:43)
[2023-07-28 06:59] LABS: Anion Gap 13 (12-20); Blood Urea Nitrogen 14 mg/dL (9-16); Calcium 8.8 mg/dL (8.4-10.2); Carbon Dioxide 26 mmol/L (22-29); Chloride 99 mmol/L (96-108); Creatinine Clr Calc Pharmacy 95.5; Estimated Glomerular Filt Rate > 60; Glucose Random 231 mg/dL (60-115); Potassium 3.1 mmol/L (3.3-5.1); Sodium 135 mmol/L (135-145)
[2023-07-28 07:17] VITALS: BP 112/59; PULSE 87; RESP 20; TEMP 36.1; O2SAT 99
[2023-07-28 07:19] VITALS: PULSE 94; RESP 20; O2SAT 98
[2023-07-28] MEDS: Albuterol/Iprat 2.5/0.5MG 3 ML AMPUL.NEB INHALE ×2 (07:19→10:54)
[2023-07-28] MEDS: Fluticasone/Vilanterol 100/25 BLST.W.DEV 1 PUFF INHALE (07:19)
[2023-07-28 07:53] LABS: Glucose, Whole Blood 226 mg/dL (60-115)
[2023-07-28 08:08] LABS: Magnesium 1.7 mg/dL (1.6-2.6)
[2023-07-28] MEDS: predniSONE 20 MG TABLET PO (09:10)
[2023-07-28] MEDS: Clopidogrel Bisulfate 75 MG TABLET PO (09:10)
[2023-07-28] MEDS: Potassium Chloride ER 20 MEQ TAB.ER.PRT 40 MEQ PO (09:10)
[2023-07-28] MEDS: Aspirin Enteric Coated 81 MG TABLET.DR PO (09:10)
[2023-07-28] MEDS: Atorvastatin Calcium 80 MG TABLET PO (09:10)
[2023-07-28] MEDS: Enoxaparin Sodium 40 MG/0.4 ML SYRINGE SUBCUT (09:15)
[2023-07-28] MEDS: Insulin Lispro 100 UNIT/ML 3 ML VIAL 10 UNIT SUBCUT ×2 (09:16→13:01)
[2023-07-28] MEDS: Insulin Lispro 100 UNIT/ML 3 ML VIAL SUBCUT ×2 (09:16→13:00)
[2023-07-28] MEDS: Insulin Glargine,Hum.rec.anlog 100 UNIT/ML 10 ML VIAL 24 UNIT SUBCUT (09:16)
[2023-07-28] MEDS: 0.9 % Sodium Chloride Flush 3 ML SYRINGE IVFLUSH (09:17)
[2023-07-28] MEDS: Magnesium Sulfate/H2O 2 GM/50 ML PIGGYBACK IV (10:30)
[2023-07-28 10:55] VITALS: PULSE 96; RESP 18; O2SAT 97
[2023-07-28 10:58] VITALS: BP 159/78; PULSE 93; RESP 18; TEMP 36.2; O2SAT 95
--- NOTE | 2023-07-28 12:02 | MHC.CM.PN ---
Per [facility] [employer], Patient is enrolled in [employer] insurance as of today;the policy # is [id number].
[2023-07-28 12:05] LABS: Glucose, Whole Blood 340 mg/dL (60-115)
--- NOTE | 2023-07-28 12:41 | PM.DS ---
DS: Providers Provider Date of Service: 07/28/23 Date of admission: 07/26/23 01:44 Date of discharge: 07/28/23 Primary care physician: Derrek Hollingsworth MD Consults: 07/26/23 13:15 Consult to Neurology Routine Consulting Provider: [facility] Reason for consultation: cvA, Left sided weakness, ?evolving infarct mri Attending physician on discharge: Nickolas Alonso Discharging clinician: Lorena Oswald DS: Diagnosis Discharge Diagnosis (1) Hypertensive emergency: Status: Acute (2) Left-sided weakness: Status: Acute DS: Summary Hospital Course Hospital Course: From H&P on the day of admission This is a 42-year-old female with pertinent history of essential hypertension, insulin-dependent diabetes mellitus, asthma not on home oxygen, KALLIE not on CPAP who presents to the emergency department for evaluation of headache, nausea, chest discomfort. Patient states she has not taken her blood pressure medications in a couple of weeks as she around out of it and could not refill it due to insurance issues. Patient's symptoms started 2 days prior to presentation. She has been having constant frontal headache without any relief. Also has been having nausea and persistent midsternal chest discomfort. Patient has multiple complaints and also complains of wheezing and dyspnea which is worse with exertion. No orthopnea or PND. She also complains of left-sided weakness that she 1st noticed 2 days prior to presentation. No fever, chills, palpitations, abdominal pain, changes in urinary or bowel habits. In the emergency department, blood pressure found to be elevated. Troponin 115. Hypertensive emergency blood pressures improving. Elevated but flat tropinins. Continue amlodipine 10mg but change to nightly dosing. and lisinopril 10mg Left-sided weakness due to evolving subacute stroke. 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 continue 81mg daily and plavix 75 mg daily for 6weeks. atorvastatin 80mg. LDL 119. Echo obtained no evidence of intra-atrial shunt. A1c 12.8%, plan as below Seen by neurology. Passed swallow evaluation. She was seen by Physical therapy and Occupational therapy, recommended for acute rehab however patient has declined and has opted to return home. Hypokalemia/hypomagnesemia Replaced and improved Elevated troponin likely r/t demand. Trops flat x 4. Negative catheterization 2021. Echo with no evidence wall motion abnormality. ddimer <150 Mild asthma exacerbation Resolved with nebs, albuterol prn. Received a few days of oral prednisone, no further necessary upon discharge asymptomatic bacteriuria -await cultures. hold one empiric abx. Urine culture grew less than 10,000 colony-forming units of group B strep. No antibiotics indicated Acute hyponatremia -likely r/t hyperglycemia. resolved Insulin dependent type 2 diabetes- uncontrolled wtih A1c 12.8% complicated by steroid induced hyperglycemia Increase dose of Lantus to 24 units b.i.d. Compliance with diabetic diet discussed. Will need close outpatient follow-up KALLIE -noncompliant with cpap. counseled on importance of use Time Attestation Discharge Coordination Time (in mins): 40 Quality: Safe Use of Opioids Does Pt have an Active Cancer Diagnosis on the Problem List?: No Quality: Stroke Does the patient have a stroke diagnosis?: Yes Reason for No Anti-thrombotic at DC: N/A - Med Ordered Reason for No Anticoagulant at DC: Not indicated Reason Not Initiating IV-Tpa: Not indicated Reason for No Anti-thrombotic by Day Two: N/A - Med Ordered Reason for No Statin at DC: N/A - Med Ordered Physical Exam Vital Signs: Vital Signs: Last Vital Signs Temp 97.1 F 07/28/23 10:58 Pulse 93 07/28/23 10:58 Resp 18 07/28/23 10:58 BP 159/78 H 07/28/23 10:58 Pulse Ox 95 07/28/23 10:58 O2 Del Method Room Air 07/28/23 10:58 BMI result Body Mass Index 35.3 Const: General: no acute distress, alert and awake Nutritional Appearance: overweight Orientation/consciousness: patient oriented x3 Resp: Effort & Inspection: normal respiratory effort, able to speak in complete sentences, no respiratory distress and no use of accessory muscles Neuro: Other: left side grasp 4/5 General: patient oriented x3 and moves all extremities Motor exam (neuro): Pronator motor function not present Extrem: General: Yes no pedal edema DS: Data Data Completed and Pending Labs on day of discharge: Laboratory Results - last 24 hr 07/27/23 07/27/23 07/28/23 16:03 20:36 06:07 Hold Purple Top SEE NOTE Sodium 135 Potassium 3.1 L Chloride 99 Carbon Dioxide 26 Anion Gap 13 BUN 14 Creatinine 0.78 Estim Creat Clear Calc 95.5 Estimated GFR > 60 POC Glucose 406 H* 354 H* Random Glucose 231 H Calcium 8.8 Magnesium 1.7 07/28/23 07/28/23 07:16 10:57 Hold Purple Top Sodium Potassium Chloride Carbon Dioxide Anion Gap BUN Creatinine Estim Creat Clear Calc Estimated GFR POC Glucose 226 H 340 H Random Glucose Calcium Magnesium Discharge Plan Discharge Anticipated Discharge Date/Time: 07/28/23 13:00 Patient Disposition: Home Health Service Discharge Diagnosis: Subacute stroke Hypertensive emergency Hypokalemia, hypomagnesemia Referrals: [facility] [Outside] - 1 Week Derrek Hollingsworth MD [Primary Care Provider] - 08/02/23 2:30 pm (You have a follow up appointment schedule. If you can not make this appointment call office to reschedule. ) Discharge Medications: New clopidogrel 75 mg Tablet 75 mg PO DAILY 42 Days Qty: 42 0RF lisinopril 10 mg Tablet 10 mg PO DAILY 90 Days Qty: 90 0RF Protocol: Hold for SBP< HOLD for SBP < : 90 atorvastatin 80 mg Tablet 80 mg PO DAILY 90 Days Qty: 90 0RF Continued metformin 1,000 mg tablet 1,000 mg PO BID Qty: 60 8RF cyclobenzaprine 10 mg tablet 10 mg PO TID PRN (Reason: muscle spasm) Qty: 90 3RF albuterol sulfate 0.63 mg/3 mL solution for nebulization 0.63 mg inhalation Q4-6H PRN (Reason: shortness of breath or wheezing) Qty: 90 0RF Rx Instructions: May dispense medication equivalent accepted by patient's insurance Trulicity 0.75 mg/0.5 mL pen injector 0.75 mg subcut WE insulin lispro [Humalog KwikPen Insulin] 100 unit/mL insulin pen 10 unit subcut TID omeprazole 20 mg capsule,delayed release(DR/EC) 20 mg PO DAILY aspirin 81 mg tablet,delayed release (DR/EC) 81 mg PO DAILY 90 Days Qty: 90 8RF insulin glargine [Lantus Solostar U-100 Insulin] 100 unit/mL (3 mL) insulin pen 20 unit subcut BID 90 Days Qty: 36 0RF fluticasone propion-salmeterol 115-21 mcg/actuation HFA aerosol inhaler 2 puff inhalation BID Qty: 12 5RF albuterol sulfate 90 mcg/actuation aero powdr breath act w/sensor 2 inh inhalation Q4-6H PRN (Reason: shortness of breath or wheezing) Qty: 1 0RF Rx Instructions: May dispense medication equivalent accepted by patient's insurance Changed amlodipine 10 mg tablet 10 mg PO BEDTIME 90 Days Qty: 90 0RF Discontinued hydrochlorothiazide 25 mg tablet 25 mg PO DAILY Qty: 90 8RF No Action (DME) nebulizers Misc See Rx Instructions .Route Qty: 1 0RF Rx Instructions: to use every 4 hours as needed for wheezing (DME) FreeStyle Lite Strips Strip See Rx Instructions .ROUTE .MEDSUPPLY Qty: 100 7RF Rx Instructions: BID As directed (DME) blood pressure monitor Kit See Rx Instructions .Route Qty: 1 0RF Rx Instructions: As directed (DME) pen needle, diabetic [Comfort EZ Pen [place]] 32 gauge x 5/16 needle See Rx Instructions .Route Qty: 100 4RF Rx Instructions: As directed injects 4X/day (DME) FreeStyle Chiquita 2 Protem Misc See Rx Instructions .Route Qty: 1 0RF Rx Instructions: As directed (DME) blood-glucose meter [FreeStyle Lite Meter] Kit See Rx Instructions .Route Qty: 1 0RF Rx Instructions: As directed (DME) FreeStyle Lite Strips Strip See Rx Instructions .Route Qty: 100 5RF Rx Instructions: As directed tests 4 X/day (DME) lancets [FreeStyle Lancets] 28 gauge misc See Rx Instructions .Route Qty: 100 4RF Rx Instructions: As directed tests 4 X/day (DME) blood-glucose meter [FreeStyle [place]] Kit See Rx Instructions .ROUTE .MEDSUPPLY Qty: 1 0RF Rx Instructions: As directed (DME) lancets [FreeStyle Lancets] 28 gauge misc See Rx Instructions .ROUTE .MEDSUPPLY Qty: 100 7RF Rx Instructions: BID As directed (DME) FreeStyle Chiquita 2 Sensor Kit See Rx Instructions .Route Qty: 2 4RF Rx Instructions: As directed change every 14 days Discharge Orders: Discharge Order (Routine); Ordered 07/28/23 Ordered By: Lorena Oswald Activity on Discharge: As tolerated Stand Alone Forms: Patient Portal Discharge page Print Language: Hebrew Care Plan Goals: Prevent future stroke Blood pressure control, blood sugar control Health Concerns: Hypertensive emergency Subacute stroke Uncontrolled diabetes Hypokalemia, hypomagnesemia Plan of Treatment: Take aspirin daily as prescribed Take Plavix daily as prescribed for 6 weeks Take atorvastatin at bedtime as prescribed Recommend close follow-up with PCP for close blood pressure monitoring Recommend compliance with diabetic diet, resume all previous diabetic medications Recommended to go to acute rehab, but declined therefore will be discharged home with home physical therapy Assessment: See discharge summary Discharge Date/Time: 07/28/23 14:36
--- NOTE | 2023-07-28 13:27 | P.F2F_ITS ---
Service Date Service Date: 07/28/23 Encounter Date of encounter: 07/28/23 Reasons for Services Signs and symptoms assessed: Monitoring of blood pressure following stroke Reason for prison: diabetic teaching Reason for physical therapy: home safety and mobility and therapeutic exercises Reason for occupational therapy: home safety and mobility and therapeutic exercises Overseeing Care: Derrek Hollingsworth Homebound: Leaving the home is medically contraindicated at this time without the asist of a device and/or another person due th the listed conditions above and below. Reason homebound: unsteady gait / fall risk Certification: Based on the above findings, I certify that this patient is confined to the home and needs intermittent prison care, physical therapy and/or speech therapy, or continues to need occupational therapy. The patient is under my care, and I have initiated the establishment of the plan of care. The patient will be followed by a physician who will periodically review the plan of care. Time Spent With Patient Time: Total time managing care of this patient today ____ minutes.
--- NOTE | 2023-07-28 13:34 | MHC.CM.PN ---
Patient has been medically cleared for dc to home today, with services. A referral was made to [facility], who has been made aware of today's dc.
== END 2023-07-28 14:36 | disposition home health service (06) | DRG 45 ==
LOC: HO.ED 22:29 → HO.EDOVER 07-26 02:05 → HO.IMC 07-26 07:34
PROVIDERS: Physician Assistant; Admitting Provider Student in an Organized Health Care Education/Training Program; Emergency Provider Emergency Medicine Emergency Medical Services; PCP Internal Medicine; Visit Provider Physician Assistant Medical
DX: I63.9 Cerebral infarction, unspecified (principal); R65.10 Systemic inflammatory response syndrome (SIRS) of non-infectious origin without acute organ dysfunction; E87.1 Hypo-osmolality and hyponatremia; J45.21 Mild intermittent asthma with (acute) exacerbation; G81.94 Hemiplegia, unspecified affecting left nondominant side; I16.1 Hypertensive emergency; Z91.148 Patient's other noncompliance with medication regimen for other reason; I10 Essential (primary) hypertension; E11.65 Type 2 diabetes mellitus with hyperglycemia; R20.2 Paresthesia of skin; E87.6 Hypokalemia; E83.42 Hypomagnesemia; E66.9 Obesity, unspecified; Z68.35 Body mass index [BMI] 35.0-35.9, adult; G47.33 Obstructive sleep apnea (adult) (pediatric); T46.5X6A Underdosing of other antihypertensive drugs, initial encounter; Z20.822 Contact with and (suspected) exposure to COVID-19; Z79.4 Long term (current) use of insulin; Z79.82 Long term (current) use of aspirin; Z79.84 Long term (current) use of oral hypoglycemic drugs; Z79.899 Other long term (current) drug therapy
CPT/HCPCS: 36415; 70450; 70496; 70498; 70551; 71045; 80048; 80061; 81001; 81025; 82947; 83036; 83735; 83880; 84132; 84484; 85025; 85379; 87086; 87147; 87635; 93005; 93306; 93356; 94640; 97162; 97166; 97530; 99285; J0696; J1650; J2405; J3475; Q9967

== ENCOUNTER → 2023-07-25 18:59 | Outpatient (BNV) | payer MEDICAID, SELFPAY | PROVIDERS: Admitting Provider Student in an Organized Health Care Education/Training Program; Emergency Provider Emergency Medicine Emergency Medical Services; PCP Internal Medicine; Visit Provider Internal Medicine | DX: R00.0 Tachycardia, unspecified (principal); R94.31 Abnormal electrocardiogram [ECG] [EKG] | CPT/HCPCS: 93010 ==

== ENCOUNTER → 2023-07-25 20:09 | Outpatient (BNV) | payer MEDICAID, SELFPAY | PROVIDERS: Emergency Provider Emergency Medicine Emergency Medical Services; PCP Internal Medicine; Visit Provider Student in an Organized Health Care Education/Training Program | DX: R79.89 Other specified abnormal findings of blood chemistry (principal); R53.1 Weakness; I16.1 Hypertensive emergency | CPT/HCPCS: 99222; 99232; 99239; 99499; G0180 ==

== ENCOUNTER 2023-07-26 01:44 | Outpatient (BNV) | payer MEDICAID, SELFPAY | END 2023-07-26 13:55 | PROVIDERS: Admitting Provider Student in an Organized Health Care Education/Training Program; Emergency Provider Emergency Medicine Emergency Medical Services; PCP Internal Medicine; Visit Provider Internal Medicine | DX: R00.0 Tachycardia, unspecified (principal); R94.31 Abnormal electrocardiogram [ECG] [EKG] | CPT/HCPCS: 93010 ==

== ENCOUNTER 2023-07-26 01:44 | Outpatient (BNV) | payer MEDICAID, SELFPAY | END 2023-07-27 07:00 | PROVIDERS: Admitting Provider Student in an Organized Health Care Education/Training Program; Emergency Provider Emergency Medicine Emergency Medical Services; PCP Internal Medicine; Visit Provider Internal Medicine | DX: I69.354 Hemiplegia and hemiparesis following cerebral infarction affecting left non-dominant side (principal); R93.1 Abnormal findings on diagnostic imaging of heart and coronary circulation | CPT/HCPCS: 93306; 93356 ==

== ENCOUNTER → 2023-07-26 01:44 | Outpatient (BNV) | payer MEDICAID, SELFPAY | PROVIDERS: Admitting Provider Student in an Organized Health Care Education/Training Program; Emergency Provider Emergency Medicine Emergency Medical Services; PCP Internal Medicine; Visit Provider Psychiatry & Neurology Neurology | DX: I63.81 Other cerebral infarction due to occlusion or stenosis of small artery (principal); I69.354 Hemiplegia and hemiparesis following cerebral infarction affecting left non-dominant side; I16.1 Hypertensive emergency; R79.89 Other specified abnormal findings of blood chemistry | CPT/HCPCS: 99222 ==

== ENCOUNTER 2023-08-02 13:41 | Outpatient (AMB) | payer OTHER, SELFPAY ==
--- NOTE | 2023-08-02 13:45 | A.OFFPC_ITS ---
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 Accompanied by: Self / Same As Patient Allergies Iodinated Contrast Media Allergy (Intermediate, Verified 08/02/23 13:46) Anaphylaxis Medication List - Last Reconciled 08/03/23 by Derrek Hollingsworth MD albuterol sulfate 0.63 mg (3 mL) inhalation Q4-6H PRN albuterol sulfate 90 mcg/actuation 2 inhalations inhalation Q4-6H PRN amlodipine 10 mg PO BEDTIME 90 days aspirin 81 mg PO DAILY 90 days atorvastatin 80 mg PO DAILY 90 days blood pressure monitor As directed blood sugar diagnostic (FreeStyle Lite Strips) BID As directed blood sugar diagnostic (FreeStyle Lite Strips) As directed tests 4 X/day blood-glucose meter (FreeStyle [place] kit) As directed blood-glucose meter (FreeStyle Lite Meter kit) As directed clopidogrel 75 mg PO DAILY 6 weeks cyclobenzaprine 10 mg PO TID PRN dulaglutide (Trulicity) 0.75 mg subcut WE flash glucose scanning reader (FreeStyle Chiquita 2 [place]) As directed flash glucose sensor (FreeStyle Chiquita 2 Sensor kit) As directed change every 14 days fluticasone propion-salmeterol 115-21 mcg/actuation 2 puffs inhalation BID insulin glargine (Lantus Solostar U-100 Insulin) 20 units (0.2 mL) subcut BID 90 days insulin lispro (Humalog KwikPen (U-100) Insulin) 10 units subcut TID lancets (FreeStyle Lancets) BID As directed lancets (FreeStyle Lancets) As directed tests 4 X/day lisinopril 10 mg See Protocol PO DAILY 90 days metformin 1,000 mg PO BID nebulizers to use every 4 hours as needed for wheezing omeprazole 20 mg PO DAILY pen needle, diabetic (Comfort EZ Pen [place]) As directed injects 4X/day Tobacco use date assessed: 05/18/23 Dental Screening Dental Screen Date: 05/18/23 HPI nausea, headache, dizziness , follow up HPI Details 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; has PT to start tomorrow; needs OOW note ON LICENSE OF [facility] Medical History (Updated 08/03/23 @ 09:17 by Derrek Hollingsworth MD) Hypertensive emergency Acute non-ST elevation myocardial infarction (NSTEMI) UTI (urinary tract infection) Anemia Bilateral hand numbness Bilateral hand pain HSV (herpes simplex virus) infection Smoking TIA (transient ischemic attack) DJD (degenerative joint disease) GERD (gastroesophageal reflux disease) Asthma Obesity Diabetes mellitus HTN (hypertension) Surgical History H/O cardiac catheterization Hx of tubal ligation Hx of cholecystectomy Hx of appendectomy Hx of section Family History Mother Heart disease Diabetes Hypertension Hyperlipidemia Fibromyalgia Father No problems noted. Brother No problems noted. Brother No problems noted. Brother No problems noted. Sister Deep vein thrombosis Son No problems noted. Son No problems noted. Daughter Hypertension Daughter No problems noted. Maternal Aunt History of breast cancer Social History Household Members: Family Housing: Apartment Do you presently have visiting nurse or other home services: No Alcohol intake: current Alcohol intake frequency: holidays/special occasions only Patient Tobacco Use Status: Never used Tobacco Tobacco use type: Cigarette Cigarettes Per Day: 3 e-Cigarette/Vaping Use: Never Used Second Hand Smoke Exposure: No service: No Current occupational status: employed Cognitive needs: No Hearing needs: No Vision needs: Yes (glasses) Female Reproductive History Menstrual Age of Menarche: 12 Questionnaire Thrive Questionnaire Date Thrive assessed: 07/26/23 VIKRAM-7 AMB Questionnaire VIKRAM-7 Date VIKRAM - 7 assessed: 03/30/23 Source: Developed by Drs. Willian Nassar, Monique Clark, Aaron Ortega and colleagues, with an educational walter from [employer]. Review of Systems Const Denies chills, Denies headache(s) and Denies weight loss ENT Denies headache(s) Card Denies chest pain, Denies syncope, Denies irregular heart rhythm and Denies dyspnea Resp Denies chest congestion, Denies cough and Denies dyspnea GI Denies abdominal pain, Denies change in stool character, Denies nausea and Denies vomiting Musc Denies deformity and Denies joint swelling Neuro Denies syncope and Denies headache(s) Physical exam (Primary Care) Vital Signs: Last Vital Signs Pulse 98 08/02/23 13:46 BP 170/98 H 08/02/23 13:46 Pulse Ox 100 08/02/23 13:46 Oxygen Delivery Method Room Air 08/02/23 13:46 BMI result Body Mass Index 35.3 Tobacco/Smoking Status: Tobacco use Status Tobacco use date assessed 05/18/23 08/02/23 13:47 Patient Tobacco Use Status Never used Tobacco 08/02/23 13:47 Tobacco use type Cigarette 08/02/23 13:47 e-Cigarette/Vaping Use Never Used 08/02/23 13:47 Thrive Assessment: Date of Thrive Assessment Date Thrive assessed 07/26/23 08/02/23 13:47 Const General: cooperative, comfortable, no acute distress and alert Neck Neck: Yes no lymphadenopathy Thyroid: Thyroid normal Resp Effort & Inspection: normal respiratory effort Auscultation: clear to auscultation bilaterally Percussion: percussion normal Cardio Jugular venous distension: no JVD Palpation: normal PMI Rate: regular rate Rhythm: regular rhythm Heart sounds: S1 normal heart sound present and S2 normal heart sound present GI Inspection: Yes normal to inspection Palpation (GI): No hepatosplenomegaly present Skin General skin exam: no rashes or lesions noted Extrem General: Yes no clubbing, cyanosis or edema Assessment and Plan Assessment & Plan (1) CVA (cerebral vascular accident): Code(s): I63.9 - Cerebral infarction, unspecified Plan: f/u after PT completed Coding Level of Care Code Est Pt Level 3 (89507) Diagnoses CVA (cerebral vascular accident) I63.9
[2023-08-02 13:46] VITALS: BP 170/98; PULSE 98; O2SAT 100; BMI 35.3
== END 2023-08-02 14:05 | disposition home or self-care (01) ==
PROVIDERS: PCP Internal Medicine; Visit Provider Internal Medicine
DX: I69.354 Hemiplegia and hemiparesis following cerebral infarction affecting left non-dominant side (principal)
CPT/HCPCS: 99213

== ENCOUNTER 2023-09-04 11:06 | Outpatient (AMB) | payer OTHER, SELFPAY ==
[2023-09-04 11:14] VITALS: BMI 34.9
--- NOTE | 2023-09-04 11:14 | A.OFFVIS_ITS ---
VS Expanded 09/04/23 11:14 09/07/23 10:40 Height 5 ft 2 in 5 ft 2 in Weight 190 lb 11.198 oz 191 lb BMI 34.9 34.9 Intake Visit Reasons: T2DM/CONFIRMED Allergies Iodinated Contrast Media Allergy (Intermediate, Verified 08/02/23 13:46) Anaphylaxis Nutrition Presentation Details: Pt presents for MNT for T2DM, uncontrolled . Pt was referred by Dr. Hollingsworth, PCP Pt report having had CVA in 07/2023. Pt reports able to eat well, no swallowing difficulties. Pt reports having no meal plan however choosing low sugar foods. Pt reports finding herself snacking throughout the day. Reports taking Lantus 20 units/day and Humalog 6 units TID, did not bring gluc sensor reader to this appt for review food frequency fruits: 0-1/d vex/wk dairy: 3 serving/d starches > 25 serving/d (incl pastries and such) protein :fish once/wk, eggs/poultry/beef eating out 1-2 x/wk BS Monitoring Most Recent Diabetes Results: Cholesterol 190 mg/dL (<200) 07/26/23 HDL Cholesterol 37 mg/dL (>40) L 07/26/23 Triglycerides 171 mg/dL (<150) H 07/26/23 Creatinine 0.78 mg/dL (0.5-1.4) 07/28/23 Blood Urea Nitrogen 14 mg/dL (9-16) 07/28/23 Sodium 135 mmol/L (135-145) 07/28/23 Potassium 3.1 mmol/L (3.3-5.1) L 07/28/23 Chloride 99 mmol/L (96-108) 07/28/23 Carbon Dioxide 26 mmol/L (22-29) 07/28/23 Calcium 8.8 mg/dL (8.4-10.2) 07/28/23 UFA-Xpeaung-Qa.Jeor Equation Height: 5 ft 2 in Weight: 191 lb Resting Metabolic Rate: 1477.19 Calculated Activity Level: Sedentary Calories Needed to Maintain Weight: 1772.63 Diagnosis Nutrition problem #1: food nutri know defi As related to (etiology) #1: diagnosis As evidenced by (sign/symptom) #1: knowledge deficit of diet and elevated HgbA1c (12.8 % on 07/2023) Monitoring/Goals Nutrition problem monitoring: level of knowledge/skill, total PRO intake, glucose, fasting and total CHO intake Nutrition goal/outcome: list 3 CHO foods and list 3 high fiber foods Outcome progress: verbalized understanding Learning/Education Readiness to learn: good [facility] Medical History (Updated 08/05/23 @ 00:02 by Background Daemon) Hypertension Hypertensive emergency Acute non-ST elevation myocardial infarction (NSTEMI) UTI (urinary tract infection) Anemia Bilateral hand numbness Bilateral hand pain HSV (herpes simplex virus) infection Smoking TIA (transient ischemic attack) DJD (degenerative joint disease) GERD (gastroesophageal reflux disease) Asthma Obesity Diabetes mellitus HTN (hypertension) Surgical History (Updated 08/05/23 @ 00:02 by Background Daemon) H/O cardiac catheterization Hx of tubal ligation Hx of cholecystectomy Hx of appendectomy Hx of section Family History Mother Heart disease Diabetes Hypertension Hyperlipidemia Fibromyalgia Father No problems noted. Brother No problems noted. Brother No problems noted. Brother No problems noted. Sister Deep vein thrombosis Son No problems noted. Son No problems noted. Daughter Hypertension Daughter No problems noted. Maternal Aunt History of breast cancer Social History Household Members: Family Housing: Apartment Do you presently have visiting nurse or other home services: No Alcohol intake: current Alcohol intake frequency: holidays/special occasions only Patient Tobacco Use Status: Never used Tobacco Tobacco use type: Cigarette Cigarettes Per Day: 3 e-Cigarette/Vaping Use: Never Used Second Hand Smoke Exposure: No service: No Current occupational status: employed Cognitive needs: No Hearing needs: No Vision needs: Yes (glasses) Female Reproductive History Menstrual Age of Menarche: 12 Assessment & Plan Assessment & Plan (1) Type 2 diabetes mellitus with unspecified complications: Code(s): E11.8 - Type 2 diabetes mellitus with unspecified complications Category: Medical Plan: Wt: 87 Kg ( 08/2023 ) Est kcal needs as per MSJ: 1800 (40% carb, 30% protein/fat) Est fluid needs as per 25-30 ml/d: 2600 Est prot per day as per 1 g/kg bw: 87 Recommend fiber intake : 8-10 g per day and gradually increase to 25-28 g per day for women and 35-38 g for men or as tolerated Recommend sodium intake per day : less than 2000 mg Educated patient on: ( R = reviewed V = verbalizes understanding N/R = needs review N/A = not applicable * Food sources of carbohydrate, adequate serving sizes and its role in various health conditions: R * Differences between complex carbohydrates a simple carbohydrates, role of fiber in diet: R V N/R * Lean protein sources of foods: R * Differences between types of fats and role in diet (mono on saturated fat fatty acids, saturated fatty acids, trans fats): R V N/R * Food sources of sodium in salt and healthy modifications for heart health in kidney health: R V R/V * Vitamins and minerals: R V N/R * Healthy plate method concept: R * Physical activity: Benefits a precaution: R V N/R * Hypoglycemia protocol (rule of 15): R V N/R * Dietary prevention of Hyperglycemia: R Patient Instructions: Practice mindful eating Work on having 3 meals per day following healthy plate method- ok to have a meal replacement a day Reduce snack to 2 a day consisting of 0-20 g carbs Keep hydrated by having water with meals /snacks Coding Level of Care Code Nutr Indiv Intake (20174) Diagnoses Type 2 diabetes mellitus with unspecified complications E11.8 Time Spent (min) 30
[2023-09-07 10:40] VITALS: BMI 34.9
== END 2023-09-04 11:54 | disposition home or self-care (01) ==
PROVIDERS: PCP Internal Medicine; Visit Provider Dietitian, Registered
DX: E11.8 Type 2 diabetes mellitus with unspecified complications (principal)

== ENCOUNTER → 2023-09-04 11:06 | Outpatient (BNVA) | payer OTHER, SELFPAY | PROVIDERS: PCP Internal Medicine; Visit Provider Dietitian, Registered | DX: E11.65 Type 2 diabetes mellitus with hyperglycemia (principal); G45.9 Transient cerebral ischemic attack, unspecified; Z71.3 Dietary counseling and surveillance | CPT/HCPCS: 97802 ==

== ENCOUNTER 2023-09-25 10:36 | Outpatient (AMB) | payer OTHER, SELFPAY ==
--- NOTE | 2023-09-25 10:38 | A.OFFPC_ITS ---
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 per policy Accompanied by: Self / Same As Patient Allergies Iodinated Contrast Media Allergy (Intermediate, Verified 09/25/23 10:39) Anaphylaxis Medication List - Last Reconciled 09/26/23 by Derrek Hollingsworth MD albuterol sulfate 90 mcg/actuation 2 inhalations inhalation Q4-6H PRN albuterol sulfate 0.63 mg (3 mL) inhalation Q4-6H PRN amlodipine 10 mg PO BEDTIME 90 days aspirin 81 mg PO DAILY 90 days atorvastatin 80 mg PO DAILY 90 days blood pressure monitor As directed blood-glucose meter (FreeStyle [place] kit) As directed blood-glucose meter (FreeStyle Lite Meter kit) As directed clopidogrel 75 mg PO DAILY 6 weeks cyclobenzaprine 10 mg PO TID PRN dulaglutide (Trulicity) 0.75 mg subcut WE flash glucose scanning reader (SmarterphoneStyle Chiquita 2 [place]) As directed flash glucose sensor (FreeStyle Chiquita 2 Sensor kit) As directed change every 14 days fluticasone propion-salmeterol 115-21 mcg/actuation 2 puffs inhalation BID insulin glargine (Lantus Solostar U-100 Insulin) 20 units (0.2 mL) subcut BID 90 days insulin lispro (Humalog KwikPen (U-100) Insulin) 10 units subcut TID lisinopril 10 mg See Protocol PO DAILY 90 days metformin 1,000 mg PO BID nebulizers to use every 4 hours as needed for wheezing omeprazole 20 mg PO BID pen needle, diabetic (Comfort EZ Pen [place]) As directed injects 4X/day Tobacco use date assessed: 05/18/23 Dental Screening Dental Screen Date: 05/18/23 HPI 4 weeks f/u HPI Details cva with left leg paresis; improving with pt PFSH Medical History (Updated 08/05/23 @ 00:02 by Background [place]) Hypertension Hypertensive emergency Acute non-ST elevation myocardial infarction (NSTEMI) UTI (urinary tract infection) Anemia Bilateral hand numbness Bilateral hand pain HSV (herpes simplex virus) infection Smoking TIA (transient ischemic attack) DJD (degenerative joint disease) GERD (gastroesophageal reflux disease) Asthma Obesity Diabetes mellitus HTN (hypertension) Surgical History (Updated 08/05/23 @ 00:02 by Latonia Ramos) H/O cardiac catheterization Hx of tubal ligation Hx of cholecystectomy Hx of appendectomy Hx of section Family History Mother Heart disease Diabetes Hypertension Hyperlipidemia Fibromyalgia Father No problems noted. Brother No problems noted. Brother No problems noted. Brother No problems noted. Sister Deep vein thrombosis Son No problems noted. Son No problems noted. Daughter Hypertension Daughter No problems noted. Maternal Aunt History of breast cancer Social History Household Members: Family Housing: Apartment Do you presently have visiting nurse or other home services: No Alcohol intake: current Alcohol intake frequency: holidays/special occasions only Patient Tobacco Use Status: Never used Tobacco Tobacco use type: Cigarette Cigarettes Per Day: 3 e-Cigarette/Vaping Use: Never Used Second Hand Smoke Exposure: No service: No Current occupational status: employed Cognitive needs: No Hearing needs: No Vision needs: Yes (glasses) Female Reproductive History Menstrual Age of Menarche: 12 Questionnaire Thrive Questionnaire Date Thrive assessed: 07/26/23 VIKRAM-7 AMB Questionnaire VIKRAM-7 Date VIKRAM - 7 assessed: 03/30/23 Source: Developed by Drs. Willian Nassar, Monique Clark, Aaron Ortega and colleagues, with an educational walter from [employer]. Review of Systems Const Denies chills, Denies headache(s) and Denies weight loss ENT Denies headache(s) Card Denies chest pain, Denies syncope, Denies irregular heart rhythm and Denies dyspnea Resp Denies chest congestion, Denies cough and Denies dyspnea GI Denies abdominal pain, Denies change in stool character, Denies nausea and Denies vomiting Musc Denies deformity and Denies joint swelling Neuro Denies syncope and Denies headache(s) Physical exam (Primary Care) Vital Signs: Last Vital Signs Pulse 97 09/25/23 10:39 BP 180/90 H 09/25/23 10:39 Pulse Ox 99 09/25/23 10:39 Oxygen Delivery Method Room Air 09/25/23 10:39 BMI result Body Mass Index 34.7 Tobacco/Smoking Status: Tobacco use Status Tobacco use date assessed 05/18/23 09/25/23 10:38 Patient Tobacco Use Status Never used Tobacco 09/25/23 10:38 Tobacco use type Cigarette 09/25/23 10:38 e-Cigarette/Vaping Use Never Used 09/25/23 10:38 Thrive Assessment: Date of Thrive Assessment Date Thrive assessed 07/26/23 09/25/23 10:38 Const General: cooperative, comfortable, no acute distress and alert Neck Neck: Yes no lymphadenopathy Thyroid: Thyroid normal Resp Effort & Inspection: normal respiratory effort Auscultation: clear to auscultation bilaterally Percussion: percussion normal Cardio Jugular venous distension: no JVD Palpation: normal PMI Rate: regular rate Rhythm: regular rhythm Heart sounds: S1 normal heart sound present and S2 normal heart sound present GI Inspection: Yes normal to inspection Palpation (GI): No hepatosplenomegaly present Skin General skin exam: no rashes or lesions noted Extrem General: Yes no clubbing, cyanosis or edema Assessment and Plan Assessment & Plan (1) CVA (cerebral vascular accident): Code(s): I63.9 - Cerebral infarction, unspecified Plan: improving; cont pt Medications: Refilled flash glucose sensor (FreeStyle [place] 2 Sensor kit) As directed change every 14 days 2 ea 4RF Coding Level of Care Code Est Pt Level 3 (99730) Diagnoses CVA (cerebral vascular accident) I63.9
[2023-09-25 10:39] VITALS: BP 180/90; PULSE 97; O2SAT 99; BMI 34.7
== END 2023-09-25 11:07 | disposition home or self-care (01) ==
PROVIDERS: PCP Internal Medicine; Visit Provider Internal Medicine
DX: I69.354 Hemiplegia and hemiparesis following cerebral infarction affecting left non-dominant side (principal)
CPT/HCPCS: 99213

== ENCOUNTER 2023-09-25 11:17 | Outpatient (REF) | payer OTHER, SELFPAY ==
[2023-09-25 11:39] LABS: MANUAL DIFF FLAG NO
[2023-09-25 12:07] LABS: Basophils Absolute Auto 0.1 X10*3/uL (0.0-0.2); Basophils Percent Auto 0.4 % (0-2); Eosinophils Absolute Auto 0.4 X10*3/uL (0.0-0.4); Hematocrit 38.8 % (37.0-47.0); Hemoglobin 12.4 g/dl (12.0-16.0); Imm Gran Abs Auto 0.05 X10*3/uL (0.00-0.03); Imm Gran Pct Auto 0.4 % (0.0-0.4); Lymphocytes Absolute Auto 2.6 X10*3/uL (1.2-4.9); Lymphocytes Percent Auto 22.3 % (20-40); Mean Corpuscular Hemoglobin 23.6 pg (27.0-33.0); Mean Corpuscular Volume 73.8 fL (80.0-98.0); Mean Platelet Volume 11.4 fL (9.4-12.3); Monocytes Absolute Auto 0.7 X10*3/uL (0.1-1.2); Monocytes Percent Auto 5.9 % (2-11); Neutrophils Absolute Auto 7.9 x10*3/uL (2.0-8.3); Platelet Count 285 X10*3/uL (160-400); Red Blood Count 5.26 X10*6/uL (4.20-5.50); Red Cell Distribution Width 17.2 % (11.0-16.0); White Blood Count 11.6 X10*3/uL (4.8-10.8)
[2023-09-25 12:45] LABS: Alanine Aminotransferase 12 U/L (0-31); Albumin Level 3.6 g/dL (3.5-5.0); Alkaline Phosphatase 81 U/L (39-117); Anion Gap 12 (12-20); Aspartate Amino Transferase 19 U/L (5-31); Bilirubin Total 0.4 mg/dL (0.0-1.0); Blood Urea Nitrogen 7 mg/dL (9-16); Calcium 8.5 mg/dL (8.4-10.2); Carbon Dioxide 24 mmol/L (22-29); Chloride 104 mmol/L (96-108); Cholesterol 179 mg/dL (<200); Estimated Glomerular Filt Rate > 60; Glucose Fasting 220 mg/dL (60-99); HDL Cholesterol 35 mg/dL (>40); LDL Cholesterol Calculated 115 mg/dL (<100); Potassium 3.1 mmol/L (3.3-5.1); Sodium 137 mmol/L (135-145); Total Protein 7.1 g/dL (6.5-8.0); Triglycerides 147 mg/dL (<150)
[2023-09-25 13:47] LABS: Estimated Average Glucose 292 mg/dL; Hemoglobin A1c % 11.8 % (<6.0)
== END 2023-09-25 11:18 | disposition home or self-care (01) ==
LOC: HO.LAB 11:17
PROVIDERS: PCP Internal Medicine; Visit Provider Internal Medicine
DX: Z13.220 Encounter for screening for lipoid disorders (principal); Z13.0 Encounter for screening for diseases of the blood and blood-forming organs and certain disorders involving the immune mechanism; Z13.9 Encounter for screening, unspecified; R73.9 Hyperglycemia, unspecified
CPT/HCPCS: 36415; 80053; 80061; 83036; 85025

== ENCOUNTER 2023-10-03 11:17 | Outpatient (AMB) | payer OTHER, SELFPAY ==
--- NOTE | 2023-10-03 11:28 | MHC.AMDMED ---
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 Accompanied by: Self / Same As Patient Allergies Iodinated Contrast Media Allergy (Intermediate, Verified 09/25/23 10:39) Anaphylaxis HPI Comprehensive Diabetes Asmnt Most Recent Diabetes Results: Hemoglobin A1c 7.0 % 02/10/18 Microalb/Creat Ratio 101.4 ug/mg cr 07/15/22 Cholesterol 179 mg/dL (<200) 09/25/23 HDL Cholesterol 35 mg/dL (>40) L 09/25/23 Triglycerides 147 mg/dL (<150) 09/25/23 Creatinine 0.82 mg/dL (0.5-1.4) 09/25/23 Blood Urea Nitrogen 7 mg/dL (9-16) L 09/25/23 Sodium 137 mmol/L (135-145) 09/25/23 Potassium 3.1 mmol/L (3.3-5.1) L 09/25/23 Chloride 104 mmol/L (96-108) 09/25/23 Carbon Dioxide 24 mmol/L (22-29) 09/25/23 Calcium 8.5 mg/dL (8.4-10.2) 09/25/23 AST 19 U/L (5-31) 09/25/23 ALT 12 U/L (0-31) 09/25/23 Total Protein 7.1 g/dL (6.5-8.0) 09/25/23 Albumin 3.6 g/dL (3.5-5.0) 09/25/23 [facility] Medical History (Updated 08/05/23 @ 00:02 by Background Daemon) Hypertension Hypertensive emergency Acute non-ST elevation myocardial infarction (NSTEMI) UTI (urinary tract infection) Anemia Bilateral hand numbness Bilateral hand pain HSV (herpes simplex virus) infection Smoking TIA (transient ischemic attack) DJD (degenerative joint disease) GERD (gastroesophageal reflux disease) Asthma Obesity Diabetes mellitus HTN (hypertension) Surgical History (Updated 08/05/23 @ 00:02 by Background Daemon) H/O cardiac catheterization Hx of tubal ligation Hx of cholecystectomy Hx of appendectomy Hx of section Family History Mother Heart disease Diabetes Hypertension Hyperlipidemia Fibromyalgia Father No problems noted. Brother No problems noted. Brother No problems noted. Brother No problems noted. Sister Deep vein thrombosis Son No problems noted. Son No problems noted. Daughter Hypertension Daughter No problems noted. Maternal Aunt History of breast cancer Social History Household Members: Family Housing: Apartment Do you presently have visiting nurse or other home services: No Alcohol intake: current Alcohol intake frequency: holidays/special occasions only Patient Tobacco Use Status: Never used Tobacco Tobacco use type: Cigarette Cigarettes Per Day: 3 e-Cigarette/Vaping Use: Never Used Second Hand Smoke Exposure: No service: No Current occupational status: employed Cognitive needs: No Hearing needs: No Vision needs: Yes (glasses) Female Reproductive History Menstrual Age of Menarche: 12 Assessment & Plan Assessment & Plan (1) Type 2 diabetes mellitus with unspecified complications: Code(s): E11.8 - Type 2 diabetes mellitus with unspecified complications Plan: Reviewed insulin pump basics today with Patient. Explained pros and cons of insulin pumps. Showed pt various pumps, infusion sets, and cgms currently available. Reviewed need to wear pump / and need to change infusion set every 3 days. Also stressed importance of frequent BG checks, 4x daily minimum or use pump that is integrated with CGM.? TDD:70 units Patient demonstrated motivation for continued insulin pump education and understands the need to complete education prior to starting insulin pump for best outcome. Will follow up for continued education. Next visit will include review of Advanced Carb Counting. Portions of this note were created using voice recognition software, please excuse any words or phrases that may have been misinterpreted. Patient Instructions: Patient will follow-up in 2 weeks Coding Level of Care Code Est Pt Level 1 (93759) Diagnoses Type 2 diabetes mellitus with unspecified complications E11.8
== END 2023-10-03 12:12 | disposition home or self-care (01) ==
PROVIDERS: PCP Internal Medicine; Visit Provider Registered Nurse Diabetes Educator
DX: E11.8 Type 2 diabetes mellitus with unspecified complications (principal)

== ENCOUNTER → 2023-10-03 11:17 | Outpatient (BNVA) | payer OTHER, SELFPAY | PROVIDERS: PCP Internal Medicine; Visit Provider Registered Nurse Diabetes Educator | DX: E11.8 Type 2 diabetes mellitus with unspecified complications (principal) | CPT/HCPCS: 99211 ==

== ENCOUNTER 2023-10-17 20:04 | Emergency (ER) | payer OTHER, SELFPAY ==
--- NOTE | ~2023-10-17 | XR_ITS ---
EXAMINATION: XR LUMBOSACRAL SPINE CLINICAL INFORMATION: Low back pain status post slip, fall COMPARISON: CT abdomen pelvis 03/24/2023 TECHNIQUE: Three views of the lumbosacral spine. FINDINGS: 5 nonrib-bearing lumbar-type vertebral bodies. Vertebral body heights and intervertebral disc spaces are fairly well-preserved. Posterior elements appear intact. Sacroiliac joints intact. Surgical clips in the right upper quadrant. XR/XR lumbar spine 2-3V IMPRESSION: Unremarkable lumbar spine.
--- NOTE | ~2023-10-17 | XR_ITS ---
EXAMINATION: XR RIBS, BILATERAL CLINICAL INFORMATION: Fall COMPARISON: 07/25/2023 TECHNIQUE: 3 views of the bilateral ribs were obtained. FINDINGS: Cardiomediastinal silhouette is mildly enlarged, stable. No consolidation, pleural effusion or pneumothorax. No displaced rib fractures. Surgical clips in the right upper quadrant. XR/XR ribs BI min 4V w CXR1V IMPRESSION: No acute cardiopulmonary process. No displaced rib fractures.
--- NOTE | 2023-10-17 20:07 | ED_ITS ---
HPI - Back Pain/Injury General Chief Complaint: Fall Stated Complaint: slipped and pulled muscle in her back Time Seen by Provider: 10/17/23 23:53 Source: patient Mode of arrival: ambulatory Limitations: no limitations History of Present Illness ED Provider: maty STAUFFER Narrative: Patient's history of fibromyalgia apparently had a near fall earlier today slipped on the water puddle complaining of increased pain in the lower back and will ambulate no head injury no loss of consciousness Related Data Home Medications ?Medication ?Instructions ?Recorded ?Confirmed dulaglutide 0.75 mg/0.5 mL 0.75 mg subcut WE 07/26/23 09/26/23 subcutaneous pen injector (Trulicity) insulin lispro 100 unit/mL 10 unit subcut TID 07/26/23 09/26/23 subcutaneous pen (Humalog KwikPen (U-100) Insulin) Previous Rx's ?Medication ?Instructions ?Recorded blood-glucose meter (FreeStyle #1 ea 09/05/20 [place] kit) nebulizers #1 ea 06/17/21 albuterol sulfate 90 mcg/actuation 2 inh inhalation Q4-6H PRN 10/28/22 breath activated powder shortness of breath or wheezing #1 inhaler,sensor ea blood pressure monitor #1 ea 11/22/22 pen needle, diabetic 32 gauge x #100 ea 02/02/23/ (Comfort EZ Pen [place]) flash glucose scanning reader #1 ea 02/05/23 (FreeStyle [place] 2 [place]) metformin 1,000 mg tablet 1,000 mg PO BID #60 tabs 02/06/23 blood-glucose meter (FreeStyle #1 ea 02/13/23 Lite Meter kit) cyclobenzaprine 10 mg tablet 10 mg PO TID PRN muscle spasm #90 05/05/23 tabs fluticasone propionate 115 2 puff inhalation BID #12 grams 05/18/23 mcg-salmeterol 21 mcg/actuation HFA inhaler amlodipine 10 mg tablet 10 mg PO BEDTIME 90 days #90 tabs 07/28/23 aspirin 81 mg tablet,delayed 81 mg PO DAILY 90 days #90 tabs 07/28/23 release atorvastatin 80 mg tablet 80 mg PO DAILY 90 days #90 tabs 07/28/23 clopidogrel 75 mg tablet 75 mg PO DAILY 6 weeks #42 tabs 07/28/23 insulin glargine 100 unit/mL (3 20 unit (0.2 mL) subcut BID 90 07/28/23 mL) subcutaneous pen (Lantus days #36 mL Solostar U-100 Insulin) lisinopril 10 mg tablet 10 mg PO DAILY 90 days #90 tabs 07/28/23 albuterol sulfate 0.63 mg/3 mL 0.63 mg (3 mL) inhalation Q4-6H 09/01/23 solution for nebulization PRN shortness of breath or wheezing #90 mL omeprazole 20 mg capsule,delayed 20 mg PO BID #180 caps 09/04/23 release flash glucose sensor (FreeStyle #2 ea 09/25/23 Chiquita 2 Sensor kit) oxycodone 5 mg tablet 5 mg PO Q6H PRN pain #20 tabs 10/18/23 Allergies Allergy/AdvReac Type Severity Reaction Status Date / Time Iodinated Contrast Media Allergy Intermediate Anaphylaxis Verified 10/17/23 20:09 Review of Systems Review of Systems: Yes all other systems are reviewed and are negative [facility] Past Medical History Medical History (Updated 10/18/23 @ 00:11 by Julien Lopez MD) Hypertension Hypertensive emergency Acute non-ST elevation myocardial infarction (NSTEMI) UTI (urinary tract infection) Anemia Bilateral hand numbness Bilateral hand pain HSV (herpes simplex virus) infection Smoking TIA (transient ischemic attack) DJD (degenerative joint disease) GERD (gastroesophageal reflux disease) Asthma Obesity Diabetes mellitus HTN (hypertension) Surgical History (Updated 08/05/23 @ 00:02 by Latonia Ramos) H/O cardiac catheterization Hx of tubal ligation Hx of cholecystectomy Hx of appendectomy Hx of section Family History Family History Mother Heart disease Diabetes Hypertension Hyperlipidemia Fibromyalgia Father No problems noted. Brother No problems noted. Brother No problems noted. Brother No problems noted. Sister Deep vein thrombosis Son No problems noted. Son No problems noted. Daughter Hypertension Daughter No problems noted. Maternal Aunt History of breast cancer Social History Social History Household Members: Family Housing: Apartment Do you presently have visiting nurse or other home services: No Alcohol intake: current Alcohol intake frequency: holidays/special occasions only Patient Tobacco Use Status: Never used Tobacco Tobacco use type: Cigarette Cigarettes Per Day: 3 e-Cigarette/Vaping Use: Never Used Second Hand Smoke Exposure: No Advance Directives: No Advance Directives Information Provided: No Do you have a plan to hurt others: No Plan service: No Current occupational status: employed Cognitive needs: No Hearing needs: No Vision needs: Yes (glasses) Physical Exam Vital Signs: Vital Signs: Last Vital Signs Temp 98.0 F 10/17/23 22:44 Pulse 92 10/17/23 22:44 Resp 18 10/17/23 22:44 BP 207/101 H 10/17/23 22:44 Pulse Ox 98 10/17/23 22:44 O2 Del Method Room Air 10/17/23 22:44 BMI result Body Mass Index 36.2 Appearance: Alert. Oriented X3. No acute distress. Eyes: PERRLA, ENT: Pharynx normal. Oral Mucosa moist Neck: Normal inspection. Neck supple. CVS: Normal heart rate and rhythm. Pulses normal. Respiratory: No respiratory distress. Equal air entry bilateral, Abdomen: Soft and nontender. Bowel sounds are present, Skin: Skin warm and dry. Normal skin color. Normal skin turgor. back: Diffuse muscular tenderness no midline tenderness SLR negative bilateral gait is normal Extremities: No lower extremity edema. No calf tenderness Neuro: Oriented X 3. No motor deficit. Course Course Course Narrative: This is a Rapid Medical Exam performed in triage by Eri Fine PA-C. Full HPI, ROS and PE to be performed by primary ED provider. 43 year-old F w/ PMHx CVA, LVH, sleep apnea, anemia, DM, asthma, HTN, presenting to the ED c/o L sided back and b/l leg pain s/p slip and fall [place] [employer] earlier today. denies head trauma or LOC. denies incontinence or retention or taking AC. PE: Hypertensive 213/106 in triage reports missing nighttime dose of medication. + lumbar paraspinal/MSK reproducible tenderness. + bilateral rib tenderness. No flail chest Plan: XR Medications Administered Discontinued Medications Generic Name Dose Route Start Last Admin Trade Name Freq PRN Reason Stop Dose Admin Amlodipine Besylate 10 mg 10/17/23 23:54 10/17/23 23:59 Amlodipine Besylate 10 Mg Tablet PO 07/23/24 23:55 10 mg ONCE ONE Administration Protocol Medical Decision Making Independent Interpretation I performed an independent interpretation of an: Plain X-Ray Interpretation: Negative ribs and lumbar spine Xray Radiology Impression Discussion of test interpretation with radiology: I have reviewed the radiologist's reading. Discharge Plan Discharge Clinical Impression: Acute lumbar myofascial strain Patient Disposition: Home, Self-Care Instructions: Low Back Strain (ED) Additional Instructions: Continue muscle relaxants at home Pain medication as prescribed Follow with your PCP if not better Prescriptions: New oxycodone 5 mg tablet 5 mg PO Q6H PRN (Reason: pain) Qty: 20 0RF Rx Instructions: Partial Fill upon patient request. No Action (DME) nebulizers Misc See Rx Instructions .Route Qty: 1 0RF Rx Instructions: to use every 4 hours as needed for wheezing (DME) blood pressure monitor Kit See Rx Instructions .Route Qty: 1 0RF Rx Instructions: As directed (DME) pen needle, diabetic [Comfort EZ Pen [place]] 32 gauge x 5/16 needle See Rx Instructions .Route Qty: 100 4RF Rx Instructions: As directed injects 4X/day (DME) FreeStyle [place] 2 [place] [facility] See Rx Instructions .Route Qty: 1 0RF Rx Instructions: As directed metformin 1,000 mg tablet 1,000 mg PO BID Qty: 60 8RF (DME) blood-glucose meter [FreeStyle Lite Meter] Kit See Rx Instructions .Route Qty: 1 0RF Rx Instructions: As directed cyclobenzaprine 10 mg tablet 10 mg PO TID PRN (Reason: muscle spasm) Qty: 90 3RF albuterol sulfate 0.63 mg/3 mL solution for nebulization 0.63 mg inhalation Q4-6H PRN (Reason: shortness of breath or wheezing) Qty: 90 0RF Rx Instructions: May dispense medication equivalent accepted by patient's insurance omeprazole 20 mg capsule,delayed release(DR/EC) 20 mg PO BID Qty: 180 3RF (DME) blood-glucose meter [FreeStyle [place]] Kit See Rx Instructions .ROUTE .MEDSUPPLY Qty: 1 0RF Rx Instructions: As directed Trulicity 0.75 mg/0.5 mL pen injector 0.75 mg subcut WE insulin lispro [Humalog KwikPen Insulin] 100 unit/mL insulin pen 10 unit subcut TID clopidogrel 75 mg Tablet 75 mg PO DAILY 42 Days Qty: 42 0RF lisinopril 10 mg Tablet 10 mg PO DAILY 90 Days Qty: 90 0RF Protocol: Hold for SBP< HOLD for SBP < : 90 aspirin 81 mg tablet,delayed release (DR/EC) 81 mg PO DAILY 90 Days Qty: 90 8RF amlodipine 10 mg tablet 10 mg PO BEDTIME 90 Days Qty: 90 0RF insulin glargine [Lantus Solostar U-100 Insulin] 100 unit/mL (3 mL) insulin pe n 20 unit subcut BID 90 Days Qty: 36 0RF atorvastatin 80 mg Tablet 80 mg PO DAILY 90 Days Qty: 90 0RF fluticasone propion-salmeterol 115-21 mcg/actuation HFA aerosol inhaler 2 puff inhalation BID Qty: 12 5RF albuterol sulfate 90 mcg/actuation aero powdr breath act w/sensor 2 inh inhalation Q4-6H PRN (Reason: shortness of breath or wheezing) Qty: 1 0RF Rx Instructions: May dispense medication equivalent accepted by patient's insurance (DME) FreeStyle Chiquita 2 Sensor Kit See Rx Instructions .Route Qty: 2 4RF Rx Instructions: As directed change every 14 days Print Language: Faroese
[2023-10-17 20:08] VITALS: BP 213/106; PULSE 82; RESP 18; TEMP 36.7; O2SAT 99; BMI 36.2
[2023-10-17 22:44] VITALS: BP 207/101; PULSE 92; RESP 18; TEMP 36.7; O2SAT 98
[2023-10-17] MEDS: amLODIPine Besylate 10 MG TABLET PO (23:59)
[2023-10-18] MEDS: oxyCODONE HCl Immed Release 5 MG TABLET 10 MG PO (00:21)
[2023-10-18 00:43] VITALS: BP 207/101; PULSE 92; RESP 18; TEMP 36.7; O2SAT 98
== END 2023-10-18 00:44 | disposition home or self-care (01) ==
PROVIDERS: Emergency Provider Internal Medicine; PCP Internal Medicine
DX: S39.012A Strain of muscle, fascia and tendon of lower back, initial encounter (principal); W01.0XXA Fall on same level from slipping, tripping and stumbling without subsequent striking against object, initial encounter; Y93.89 Activity, other specified; Y92.512 Supermarket, store or market as the place of occurrence of the external cause; Y99.9 Unspecified external cause status
CPT/HCPCS: 71111; 72100; 99283; 99284

== ENCOUNTER 2023-10-23 08:54 | Outpatient (AMB) | payer OTHER, SELFPAY ==
--- NOTE | 2023-10-23 09:30 | MHC.AMDMED ---
Intake Intake Visit Reasons: 60 min CGM setup Client Strategist Required: No Accompanied by: Self / Same As Patient Allergies Iodinated Contrast Media Allergy (Intermediate, Verified 10/17/23 20:09) Anaphylaxis HPI Comprehensive Diabetes Asmnt Most Recent Diabetes Results: Hemoglobin A1c 7.0 % 02/10/18 Microalb/Creat Ratio 101.4 ug/mg cr 07/15/22 Cholesterol 179 mg/dL (<200) 09/25/23 HDL Cholesterol 35 mg/dL (>40) L 09/25/23 Triglycerides 147 mg/dL (<150) 09/25/23 Creatinine 0.82 mg/dL (0.5-1.4) 09/25/23 Blood Urea Nitrogen 7 mg/dL (9-16) L 09/25/23 Sodium 137 mmol/L (135-145) 09/25/23 Potassium 3.1 mmol/L (3.3-5.1) L 09/25/23 Chloride 104 mmol/L (96-108) 09/25/23 Carbon Dioxide 24 mmol/L (22-29) 09/25/23 Calcium 8.5 mg/dL (8.4-10.2) 09/25/23 AST 19 U/L (5-31) 09/25/23 ALT 12 U/L (0-31) 09/25/23 Total Protein 7.1 g/dL (6.5-8.0) 09/25/23 Albumin 3.6 g/dL (3.5-5.0) 09/25/23 PFSH Medical History (Updated 10/19/23 @ 00:01 by Background Daemon) Hypertension Hypertensive emergency Acute non-ST elevation myocardial infarction (NSTEMI) UTI (urinary tract infection) Anemia Bilateral hand numbness Bilateral hand pain HSV (herpes simplex virus) infection Smoking TIA (transient ischemic attack) DJD (degenerative joint disease) GERD (gastroesophageal reflux disease) Asthma Obesity Diabetes mellitus HTN (hypertension) Surgical History (Updated 08/05/23 @ 00:02 by Background Daemon) H/O cardiac catheterization Hx of tubal ligation Hx of cholecystectomy Hx of appendectomy Hx of section Family History Mother Heart disease Diabetes Hypertension Hyperlipidemia Fibromyalgia Father No problems noted. Brother No problems noted. Brother No problems noted. Brother No problems noted. Sister Deep vein thrombosis Son No problems noted. Son No problems noted. Daughter Hypertension Daughter No problems noted. Maternal Aunt History of breast cancer Social History Household Members: Family Housing: Apartment Do you presently have visiting nurse or other home services: No Alcohol intake: current Alcohol intake frequency: holidays/special occasions only Patient Tobacco Use Status: Never used Tobacco Tobacco use type: Cigarette Cigarettes Per Day: 3 e-Cigarette/Vaping Use: Never Used Second Hand Smoke Exposure: No service: No Current occupational status: employed Cognitive needs: No Hearing needs: No Vision needs: Yes (glasses) Female Reproductive History Menstrual Age of Menarche: 12 Assessment & Plan Assessment & Plan (1) Type 2 diabetes mellitus with unspecified complications: Code(s): E11.8 - Type 2 diabetes mellitus with unspecified complications Plan: Patient at visit to set up an insert Dexcom g7 Instructed patient sensors water proof you can shower, or swim do not submerge sensor in water for over 30 minutes Is sensor falls off cannot put back in you need to replace sensor, customer service number given to patient for sensor replacement Sensor placed on the back of R arm Patient left visit with sensor in warmup Reviewed how to interpret trend arrows Reminded patient that to check finger sticks if symptoms do not match sensor reading. Discussed lag time between finger stick and sensor data.? Instructed patient she should always keep blood glucometer for backup testing if needed Reviewed delay of CGM from fingersticks Reminded pt that if symptoms do not match sensor still needs to check fingersticks. Portions of this note were created using voice recognition software, please excuse any words or phrases that may have been misinterpreted. Patient Instructions: Patient instruction: CGM provides information on blood glucose control throughout the day, including hyperglycemia and hypoglycemia. ? Continue to monitor blood glucose as instructed. Follow nutrition guidelines provided. Report any discomfort promptly to health care provider. ?Stay well-hydrated. You can bathe ,shower, swim and exercise while wearing the glucose sensor. Do not submerge glucose sensor in water for more than 30 minutes. Coding Level of Care Code Est Pt Level 1 (06930) Diagnoses Type 2 diabetes mellitus with unspecified complications E11.8
== END 2023-10-23 09:33 | disposition home or self-care (01) ==
PROVIDERS: PCP Internal Medicine; Visit Provider Registered Nurse Diabetes Educator
DX: E11.8 Type 2 diabetes mellitus with unspecified complications (principal)

== ENCOUNTER → 2023-10-23 08:54 | Outpatient (BNVA) | payer OTHER, SELFPAY | PROVIDERS: PCP Internal Medicine; Visit Provider Registered Nurse Diabetes Educator | DX: E11.8 Type 2 diabetes mellitus with unspecified complications (principal) | CPT/HCPCS: 99211 ==

== ENCOUNTER 2023-11-02 08:36 | Outpatient (AMB) | payer OTHER, SELFPAY ==
--- NOTE | 2023-11-02 08:38 | A.OFFVIS_ITS ---
Intake Intake Visit Reasons: 30 min Disability Insurance Hearing Officer Required: No Accompanied by: Self / Same As Patient Allergies Iodinated Contrast Media Allergy (Intermediate, Verified 10/17/23 20:09) Anaphylaxis HPI Comprehensive Diabetes Asmnt Most Recent Diabetes Results: Cholesterol 179 mg/dL (<200) 09/25/23 HDL Cholesterol 35 mg/dL (>40) L 09/25/23 Triglycerides 147 mg/dL (<150) 09/25/23 Creatinine 0.82 mg/dL (0.5-1.4) 09/25/23 Blood Urea Nitrogen 7 mg/dL (9-16) L 09/25/23 Sodium 137 mmol/L (135-145) 09/25/23 Potassium 3.1 mmol/L (3.3-5.1) L 09/25/23 Chloride 104 mmol/L (96-108) 09/25/23 Carbon Dioxide 24 mmol/L (22-29) 09/25/23 Calcium 8.5 mg/dL (8.4-10.2) 09/25/23 AST 19 U/L (5-31) 09/25/23 ALT 12 U/L (0-31) 09/25/23 Total Protein 7.1 g/dL (6.5-8.0) 09/25/23 Albumin 3.6 g/dL (3.5-5.0) 09/25/23 [facility] Medical History (Updated 10/19/23 @ 00:01 by Background Daemon) Hypertension Hypertensive emergency Acute non-ST elevation myocardial infarction (NSTEMI) UTI (urinary tract infection) Anemia Bilateral hand numbness Bilateral hand pain HSV (herpes simplex virus) infection Smoking TIA (transient ischemic attack) DJD (degenerative joint disease) GERD (gastroesophageal reflux disease) Asthma Obesity Diabetes mellitus HTN (hypertension) Surgical History (Updated 08/05/23 @ 00:02 by Background Daemon) H/O cardiac catheterization Hx of tubal ligation Hx of cholecystectomy Hx of appendectomy Hx of section Family History Mother Heart disease Diabetes Hypertension Hyperlipidemia Fibromyalgia Father No problems noted. Brother No problems noted. Brother No problems noted. Brother No problems noted. Sister Deep vein thrombosis Son No problems noted. Son No problems noted. Daughter Hypertension Daughter No problems noted. Maternal Aunt History of breast cancer Social History Household Members: Family Housing: Apartment Do you presently have visiting nurse or other home services: No Alcohol intake: current Alcohol intake frequency: holidays/special occasions only Patient Tobacco Use Status: Never used Tobacco Tobacco use type: Cigarette Cigarettes Per Day: 3 e-Cigarette/Vaping Use: Never Used Second Hand Smoke Exposure: No service: No Current occupational status: employed Cognitive needs: No Hearing needs: No Vision needs: Yes (glasses) Female Reproductive History Menstrual Age of Menarche: 12 Assessment & Plan Assessment & Plan (1) Type 2 diabetes mellitus with unspecified complications: Code(s): E11.8 - Type 2 diabetes mellitus with unspecified complications Plan: Personal Continuous Glucose Monitor: Patients CGM information reviewed Reviewed patient's sensor data: Patient only had 2 days' worth of data before sensor failed Instructed patient to contact [employer] customer service for replacement sensor. [employer] customer service number given to patient Hypoglycemia: ? 0% Hyperglycemia:? 100% Time in Range:0%? Average glucose for 2?days 350 mg/dL Inserted new Dexcom G7 sensor at today's visit, in back of right arm. Patient left visit with sensor in warmup Reviewed how to interpret trend arrows Reminded patient that to check finger sticks if symptoms do not match sensor reading. Discussed lag time between finger stick and sensor data.? Patient has assistance from family member to insert sensor independently at home without issue.? Discussed with patient Target Goals: * Blood glucose targets and how you feel when your blood glucose is in and out of your target ranges. * Monitoring and knowing your A1C. * What can make blood glucose go up and down and preventing high and low blood glucose. * Review of blood sugar targets in expected goal range and outside of expected goal range. * Problem solving and preventing hyper/hypoglycemia. * Sick day management of diabetes. * Using blood sugar results in decision making process in managing diabetes. ?Patient was receptive to information provided and participated in the discussion. Asked?appropriate questions and demonstrated good understanding of the topics discussed.? ? Educational Materials: The patient was provided with the following written educational materials: Target Goal handout Portions of this note were created using voice recognition software, please excuse any words or phrases that may have been misinterpreted. Patient Instructions: Patient has upcoming appointment with TIGHTENING MACHINE OPERATOR Patient will follow-up with Diabetes Education in 1 month Coding Level of Care Code Est Pt Level 1 (14836) Diagnoses Type 2 diabetes mellitus with unspecified complications E11.8
== END 2023-11-02 08:56 | disposition home or self-care (01) ==
PROVIDERS: PCP Internal Medicine; Visit Provider Registered Nurse Diabetes Educator
DX: E11.8 Type 2 diabetes mellitus with unspecified complications (principal)

== ENCOUNTER → 2023-11-02 08:36 | Outpatient (BNVA) | payer OTHER, SELFPAY | PROVIDERS: PCP Internal Medicine; Visit Provider Registered Nurse Diabetes Educator | DX: E11.8 Type 2 diabetes mellitus with unspecified complications (principal) | CPT/HCPCS: 99211 ==

== ENCOUNTER 2023-11-08 16:17 | Outpatient (AMB) | payer OTHER, SELFPAY ==
--- NOTE | 2023-11-08 16:18 | A.OFFVIS_ITS ---
Vital Signs 11/08/23 16:21 BP 198/100 H Blood Pressure Location Rt brachial Position Sitting Pulse 109 H Pulse Source Pulse Oximeter Intake Visit Reasons: T2DM/confirmed Intake Note: Patient presents today to re-establish treatment on Type 2 Diabetes Mellitus: Last Diabetic Eye exam: DUE Last Podiatry Exam: Does not see a Insole Tacker Most recent HbA1c: 11.8%, Random Glucose- 327mg/dL, Today Ur Ketones (Stick)- 40 Directional Bore Operator Required: No Accompanied by: Self / Same As Patient Allergies Iodinated Contrast Media Allergy (Intermediate, Verified 11/08/23 16:22) Anaphylaxis HPI Comments Details: 43 YO F who is seen in f/u for T2DM. She was last seen by Dr. Chapin March 2023 and By Kavita LOZANO 10/17 for sensor training. Most recent A1C 11.8% 10/17 down from 12.8%. Today in the office her ketones are + 50. pulse ox 98% She has been coughing for the past day, non productive dry cough, diarrhea, body aches, chills, she is also having pain in the flank bilateral intermittent. Feeling pressure when she urinates and has had vaginal discharge thin,yellow color. Initially diagnosed with T2DM 2018, started on insulin 02/16 when she started with [facility]. Hadn't seen Endo in the past. Was initially started on treatment with metformin at time of diagnosis. Current regimen metformin 1000 mg BID . Lantus 20 units Humalog 6 units three times per day Trulicity .75mg weekly Sensor: average sugar 380 100% of the time high for the past two weeks. Family history of T2DM in mother , grandmother . Has eyes checked yearly, last eye exam June 2022 , denies retinopathy. Denies neuropathy, does not see podiatry. Has nephropathy, on BONY/ARB. Has HLD, on statin and zetia. Last LDL [115] as measured on [10/17]. Followed by cardiology last seen 2022: nuclear stress test on 05/03/2021 which was equivocal for small mild distal septal ischemia. Echocardiogram from 09/04/2020 showed EF 55-60%, moderate LVH, moderate diastolic dysfunction with increased filling pressures, mild MR. A cardiac catheterization was done on 07/20/2021 showing normal coronary arteries Has had recent diabetes education. [facility] Medical History (Updated 10/19/23 @ 00:01 by Background Daemon) Hypertension Hypertensive emergency Acute non-ST elevation myocardial infarction (NSTEMI) UTI (urinary tract infection) Anemia Bilateral hand numbness Bilateral hand pain HSV (herpes simplex virus) infection Smoking TIA (transient ischemic attack) DJD (degenerative joint disease) GERD (gastroesophageal reflux disease) Asthma Obesity Diabetes mellitus HTN (hypertension) Surgical History (Updated 08/05/23 @ 00:02 by Background Daemon) H/O cardiac catheterization Hx of tubal ligation Hx of cholecystectomy Hx of appendectomy Hx of section Family History Mother Heart disease Diabetes Hypertension Hyperlipidemia Fibromyalgia Father No problems noted. Brother No problems noted. Brother No problems noted. Brother No problems noted. Sister Deep vein thrombosis Son No problems noted. Son No problems noted. Daughter Hypertension Daughter No problems noted. Maternal Aunt History of breast cancer Social History Household Members: Family Housing: Apartment Do you presently have visiting nurse or other home services: No Alcohol intake: current Alcohol intake frequency: holidays/special occasions only Patient Tobacco Use Status: Never used Tobacco Tobacco use type: Cigarette Cigarettes Per Day: 3 e-Cigarette/Vaping Use: Never Used Second Hand Smoke Exposure: No service: No Current occupational status: employed Cognitive needs: No Hearing needs: No Vision needs: Yes (glasses) Female Reproductive History Menstrual Age of Menarche: 12 Physical Exam Vital Signs: Last Vital Signs Pulse 109 H 11/08/23 16:21 BP 198/100 H 11/08/23 16:21 Const Other: Absence of Cushingoid features. Absence of acromegalic features. Neck exam reveals nl size thyroid about 15 gms. No thyroid nodules palpable. No carotid bruits present. Lungs CTA. Nasal congestion + Heart S1 S2, Reg R/R. No M/R G. Skin exam reveals absence of vitiligo or acanthosis nigricans. no edema foot exam deferred Results UR Ketone Dip UR Ketone Dip 40 Last Edit by SUZANNE Solano on 11/08/23 16:41 Results Reviewed Results Reviewed: Laboratory Last Values Glucose (Clinic) 327 mg/dL (60-115) H 11/08/23 16:26 Ur Ketones (Stick) 40 11/08/23 16:39 Laboratory Tests 07/15/22 07/26/23 07/26/23 13:46 04:37 07:37 Plt Count Potassium BUN 9 Creatinine 0.73 Estim Creat Clear Calc 100.5 Estimated GFR > 60 Fasting Glucose Estimat Average Glucose Hemoglobin A1c % 12.8 H Calcium 9.4 AST ALT Albumin Triglycerides Cholesterol LDL Cholesterol, Calc HDL Cholesterol Urine Creatinine 84.78 Urine Microalbumin 86.0 Microalb/Creat Ratio 101.4 07/28/23 09/25/23 06:07 11:36 Plt Count 285 Potassium 3.1 L BUN Creatinine 0.82 Estim Creat Clear Calc Estimated GFR > 60 Fasting Glucose 220 H Estimat Average Glucose 292 Hemoglobin A1c % 11.8 H Calcium 8.8 8.5 AST 19 ALT 12 Albumin 3.6 Triglycerides 147 Cholesterol 179 LDL Cholesterol, Calc 115 H HDL Cholesterol 35 L Urine Creatinine Urine Microalbumin Microalb/Creat Ratio Assessment & Plan Assessment & Plan (1) Type 2 diabetes mellitus with unspecified complications: Code(s): E11.8 - Type 2 diabetes mellitus with unspecified complications Category: Medical Plan: Diabetic with elevated glucose x 2 weeks 380 average spilling 50 on ketones with elevated heart rate, elevated BP and asthma flare. In light of elevated glucose and ketones patient has agreed to be transported to the hospital via ambulance and 911 called. Patient will need intensification of her insulin regime and metformin should be held while she is ill. I have advised the patient that I should see her back either later this week or early next week and she can call the office for this appt. Last dose of insulin was this morning with breakfast. Orders: Orders AMB Ketone Urine Dipstick Today Z13.9 - Encounter for screening, unspecified Coding Level of Care Code Est Pt Level 4 (35666) Complex EM visit Add On G2211 Diagnoses Type 2 diabetes mellitus with unspecified complications E11.8 Time Spent (min) 30 Comment Time spent reviewing labs/provider notes, sensor reports, face to face, chart doc
[2023-11-08 16:21] VITALS: BP 198/100; PULSE 109
[2023-11-08 16:31] LABS: Glucose, Whole Blood 327 mg/dL (60-115)
== END 2023-11-08 17:10 | disposition home or self-care (01) ==
PROVIDERS: PCP Internal Medicine; Visit Provider Nurse Practitioner Adult Health
DX: Z13.9 Encounter for screening, unspecified (principal); E11.8 Type 2 diabetes mellitus with unspecified complications
CPT/HCPCS: 99214; G2211

== ENCOUNTER → 2023-11-08 16:17 | Outpatient (BNVA) | payer OTHER, SELFPAY | PROVIDERS: PCP Internal Medicine; Visit Provider Nurse Practitioner Adult Health | DX: E11.8 Type 2 diabetes mellitus with unspecified complications (principal); E11.65 Type 2 diabetes mellitus with hyperglycemia; Z79.4 Long term (current) use of insulin | CPT/HCPCS: 81002; 82947; 99212 ==

== ENCOUNTER 2023-11-13 11:29 | Outpatient (AMB) | payer OTHER, SELFPAY ==
--- NOTE | 2023-11-13 11:34 | A.OFFPC_ITS ---
Vital Signs 11/13/23 11:35 Height 5 ft 2 in Weight 188 lb BMI 34.4 BP 166/78 H Blood Pressure Location Lt brachial Position Sitting Pulse 94 Pulse Source Pulse Oximeter Pulse Oximetry (%) 97 Oxygen Delivery Method Room Air Intake Visit Reasons: follow up Allergies Iodinated Contrast Media Allergy (Intermediate, Verified 11/13/23 11:35) Anaphylaxis Medication List - Last Reconciled 11/14/23 by Derrek Hollingsworth MD albuterol sulfate 90 mcg/actuation 2 inhalations inhalation Q4-6H PRN albuterol sulfate 0.63 mg (3 mL) inhalation Q4-6H PRN amlodipine 10 mg PO BEDTIME 90 days aspirin 81 mg PO DAILY 90 days atorvastatin 80 mg PO DAILY 90 days blood pressure monitor As directed blood-glucose meter (FreeStyle [place] kit) As directed blood-glucose meter (FreeStyle Lite Meter kit) As directed blood-glucose sensor (ITT EXIM G7 Sensor device) As directed every ten days clopidogrel 75 mg PO DAILY 6 weeks cyclobenzaprine 10 mg PO TID PRN dulaglutide (Trulicity) 0.75 mg (0.5 mL) subcut WE flash glucose scanning reader (inGenius EngineeringStyle [place] 2 [place]) As directed flash glucose sensor (FreeStyle [place]ita 2 Sensor kit) As directed change every 14 days fluticasone propion-salmeterol 115-21 mcg/actuation 2 puffs inhalation BID insulin glargine (Lantus Solostar U-100 Insulin) 20 units (0.2 mL) subcut BID 90 days insulin lispro (Humalog KwikPen (U-100) Insulin) 6 units (0.06 mL) subcut TID lisinopril 10 mg See Protocol PO DAILY 90 days metformin 1,000 mg PO BID nebulizers to use every 4 hours as needed for wheezing omeprazole 20 mg PO BID oxycodone 5 mg PO Q6H PRN pen needle, diabetic (Comfort EZ Pen [place]) As directed injects 4X/day Tobacco use date assessed: 05/18/23 Dental Screening Dental Screen Date: 05/18/23 Did you have a dental visit in the last 12 months?: No Did you have a dental problem in the last 6 months where you did not have access to dental care?: No Was dental information given to patient?: Patient has dentist HPI follow up HPI Details had an er visit for hyperglycemia and urine ketones; treated in er and released; has f/u with endo for her DM; BS has been in the 200-300 range; compliant with meds; will increase lantus to 25U bid PFSH Medical History Hypertension Hypertensive emergency Acute non-ST elevation myocardial infarction (NSTEMI) UTI (urinary tract infection) Anemia Bilateral hand numbness Bilateral hand pain HSV (herpes simplex virus) infection Smoking TIA (transient ischemic attack) DJD (degenerative joint disease) GERD (gastroesophageal reflux disease) Asthma Obesity Diabetes mellitus HTN (hypertension) Surgical History H/O cardiac catheterization Hx of tubal ligation Hx of cholecystectomy Hx of appendectomy Hx of section Family History Mother Heart disease Diabetes Hypertension Hyperlipidemia Fibromyalgia Father No problems noted. Brother No problems noted. Brother No problems noted. Brother No problems noted. Sister Deep vein thrombosis Son No problems noted. Son No problems noted. Daughter Hypertension Daughter No problems noted. Maternal Aunt History of breast cancer Social History Household Members: Family Housing: Apartment Do you presently have visiting nurse or other home services: No Alcohol intake: current Alcohol intake frequency: holidays/special occasions only Patient Tobacco Use Status: Never used Tobacco Tobacco use type: Cigarette Cigarettes Per Day: 3 e-Cigarette/Vaping Use: Never Used Second Hand Smoke Exposure: No service: No Current occupational status: employed Cognitive needs: No Hearing needs: No Vision needs: Yes (glasses) Female Reproductive History Menstrual Age of Menarche: 12 Questionnaire PHQ-9 Over the last 2 weeks, how often have you been bothered by any of the following problems? 1. Little interest or pleasure in doing things: not at all 2. Feeling down, depressed, or hopeless: not at all 3. Trouble falling or staying asleep, or sleeping too much: not at all 4. Feeling tired or having little energy: not at all 5. Poor appetite or overeating: not at all 6. Feeling bad about yourself - or that you are a failure or have let yourself or your family down: not at all 7. Trouble concentrating on things, such as reading the newspaper or watching television: not at all 8. Moving or speaking so slowly that other people could have noticed. Or the opposite - being so fidgety or restless that you have been moving around a lot more than usual: not at all 9. Thoughts that you would be better off or of hurting yourself in some way: not at all Total score: 0 Depression Screening Interpretation: Negative Depression Screening Done: Yes Source: Developed by Drs. Willian Nassar, Monique Clark, Aaron Ortega and colleagues, with an educational walter from [employer] Thrive Questionnaire Date Thrive assessed: 07/26/23 AUDIT C Alcohol Use Questionnaire (AUDIT-C) 1. How often do you have a drink containing alcohol?: 2-4 times a month 2. How many drinks containing alcohol do you have on a typical day when you are drinking?: 3 or 4 3. How often do you have six or more drinks on one occasion?: Less than monthly Total Score: 4 Score Reviewed/Action Taken: Yes VIKRAM-7 AMB Questionnaire VIKRAM-7 Date VIKRAM - 7 assessed: 11/13/23 Feeling nervous, anxious, or on edge: 3 = Nearly every day Not being able to stop or control worryin = Nearly every day Worrying too much about different things: 3 = Nearly every day Trouble relaxin = Nearly every day Being so restless that it is hard to sit still: 3 = Nearly every day Becoming easily annoyed or irritable: 2 = More than half the days Feeling afraid as if something awful might happen: 1 = Several days Total VIKRAM-7 score (0-4 normal; 5-9 mild; 10-14 moderate; 15-21 severe): 18 Source: Developed by Drs. Willian Nassar, Monique Clark, Aaron Ortega and colleagues, with an educational walter from [employer]. VIKRAM-7 Assessment Billing VIKRAM-7 Assessment Tool: VIKRAM-7 Assessment 79953 Review of Systems Const Denies chills, Denies headache(s) and Denies weight loss ENT Denies headache(s) Card Denies chest pain, Denies syncope, Denies irregular heart rhythm and Denies dyspnea Resp Denies chest congestion, Denies cough and Denies dyspnea GI Denies abdominal pain, Denies change in stool character, Denies nausea and Denies vomiting Musc Denies deformity and Denies joint swelling Neuro Denies syncope and Denies headache(s) Physical exam (Primary Care) Vital Signs: Last Vital Signs Pulse 94 11/13/23 11:35 BP 166/78 H 11/13/23 11:35 Pulse Ox 97 11/13/23 11:35 Oxygen Delivery Method Room Air 11/13/23 11:35 BMI result Body Mass Index 34.4 Tobacco/Smoking Status: Tobacco use Status Tobacco use date assessed 05/18/23 11/13/23 11:36 Patient Tobacco Use Status Never used Tobacco 11/13/23 11:36 Tobacco use type Cigarette 11/13/23 11:36 e-Cigarette/Vaping Use Never Used 11/13/23 11:36 PHQ-9: PHQ-9 Score PHQ-9: Total score 0 11/13/23 11:36 Depression Screening Interpretation: Negative Thrive Assessment: Date of Thrive Assessment Date Thrive assessed 07/26/23 11/13/23 11:36 Const General: cooperative, comfortable, no acute distress and alert Neck Neck: Yes no lymphadenopathy Thyroid: Thyroid normal Resp Effort & Inspection: normal respiratory effort Auscultation: clear to auscultation bilaterally Percussion: percussion normal Cardio Jugular venous distension: no JVD Palpation: normal PMI Rate: regular rate Rhythm: regular rhythm Heart sounds: S1 normal heart sound present and S2 normal heart sound present GI Inspection: Yes normal to inspection Palpation (GI): No hepatosplenomegaly present Skin General skin exam: no rashes or lesions noted Extrem General: Yes no clubbing, cyanosis or edema Assessment and Plan Assessment & Plan (1) Type 2 diabetes mellitus with unspecified complications: Code(s): E11.8 - Type 2 diabetes mellitus with unspecified complications Plan: to f/u with endo; increase lantus to 25U bid Medications: New insulin lispro (Humalog KwikPen (U-100) Insulin) 6 units (0.06 mL) subcut TID 15 mL 3RF Refilled insulin glargine (Lantus Solostar U-100 Insulin) 20 units (0.2 mL) subcut BID 36 mL 0RF 90 days metformin 1,000 mg PO BID 60 tabs 8RF amlodipine 10 mg PO BEDTIME 90 tabs 0RF 90 days aspirin 81 mg PO DAILY 90 tabs 8RF 90 days clopidogrel 75 mg PO DAILY 42 tabs 0RF 6 weeks albuterol sulfate 90 mcg/actuation May dispense medication equivalent accepted by patient's insurance 2 inhalations inhalation Q4-6H PRN 1 ea 0RF shortness of breath or wheezing albuterol sulfate May dispense medication equivalent accepted by patient's insurance 0.63 mg (3 mL) inhalation Q4-6H PRN 90 mL 0RF shortness of breath or wheezing omeprazole 20 mg PO BID 180 caps 3RF atorvastatin 80 mg PO DAILY 90 tabs 0RF 90 days cyclobenzaprine 10 mg PO TID PRN 90 tabs 3RF muscle spasm Coding Level of Care Code Est Pt Level 3 (83765) Diagnoses Type 2 diabetes mellitus with unspecified complications E11.8 Additional Codes VIKRAM-7 Assessment Billing - VIKRAM-7 Assessment Tool: VIKRAM-7 Assessment [id number] ([id number])
[2023-11-13 11:35] VITALS: BP 166/78; PULSE 94; O2SAT 97; BMI 34.4
== END 2023-11-13 12:02 | disposition home or self-care (01) ==
PROVIDERS: PCP Internal Medicine; Visit Provider Internal Medicine
DX: E11.8 Type 2 diabetes mellitus with unspecified complications (principal)
CPT/HCPCS: 99213

== ENCOUNTER 2023-12-04 11:49 | Emergency (ER) | payer OTHER, SELFPAY ==
--- NOTE | ~2023-12-04 | XR_ITS ---
EXAMINATION: XR LUMBOSACRAL SPINE CLINICAL INFORMATION: Low back pain COMPARISON: None available. TECHNIQUE: Three views of the lumbosacral spine. FINDINGS: The vertebral bodies and posterior elements are normal. The disc spaces are preserved and the vertebral alignment is normal. The paraspinal soft tissues are normal. XR/XR lumbar spine 2-3V IMPRESSION: Unremarkable lumbar spine exam Electronically signed by: Thai Pepper MD 12/04/2023 10:28 PM EDT
[2023-12-04 11:54] VITALS: BP 219/114; PULSE 100; RESP 16; TEMP 36.8; O2SAT 100; BMI 32.6
--- NOTE | 2023-12-04 11:55 | ED_ITS ---
HPI - Back Pain/Injury General Chief Complaint: General Medical Stated Complaint: bodyache-numb r side Time Seen by Provider: 12/04/23 21:28 Source: patient Mode of arrival: ambulatory Limitations: no limitations History of Present Illness ED Provider: maty STAUFFER Narrative: Patient's history of fibromyalgia diabetes chronic back pain with previous MRI in 11/16 showing arthritis comes here was pain in the lower back radiating to the both lower extremities more on the right side no history of trauma no bladder or bowel involvement also noticed vaginal discharge foul-smelling low risk for STI no fever no chills patient is taking Flexeril without much response ambulating steady gait in the ER Related Data Previous Rx's ?Medication ?Instructions ?Recorded blood-glucose meter (FreeStyle #1 ea 09/05/20 [place] kit) nebulizers #1 ea 06/17/21 blood pressure monitor #1 ea 11/22/22 pen needle, diabetic 32 gauge x #100 ea 02/02/23 5/ (Comfort EZ Pen [place]) flash glucose scanning reader #1 ea 02/05/23 (FreeStyle [place] 2 [place]) blood-glucose meter (FreeStyle #1 ea 02/13/23 Lite Meter kit) fluticasone propionate 115 2 puff inhalation BID #12 grams 05/18/23 mcg-salmeterol 21 mcg/actuation HFA inhaler lisinopril 10 mg tablet 10 mg PO DAILY 90 days #90 tabs 07/28/23 flash glucose sensor (FreeStyle #2 ea 09/25/23 Chiquita 2 Sensor kit) oxycodone 5 mg tablet 5 mg PO Q6H PRN pain #20 tabs 10/18/23 dulaglutide 0.75 mg/0.5 mL 0.75 mg (0.5 mL) subcut WE #2 mL 10/19/23 subcutaneous pen injector (DimensionU (formerly Tabula Digita)[facility]) blood-glucose sensor ([employer] G7 #3 ea 10/24/23 Sensor device) albuterol sulfate 0.63 mg/3 mL 0.63 mg (3 mL) inhalation Q4-6H 11/13/23 solution for nebulization PRN shortness of breath or wheezing #90 mL albuterol sulfate 90 mcg/actuation 2 inh inhalation Q4-6H PRN 11/13/23 breath activated powder shortness of breath or wheezing #1 inhaler,sensor ea amlodipine 10 mg tablet 10 mg PO BEDTIME 90 days #90 tabs 11/13/23 aspirin 81 mg tablet,delayed 81 mg PO DAILY 90 days #90 tabs 11/13/23 release atorvastatin 80 mg tablet 80 mg PO DAILY 90 days #90 tabs 11/13/23 clopidogrel 75 mg tablet 75 mg PO DAILY 6 weeks #42 tabs 11/13/23 cyclobenzaprine 10 mg tablet 10 mg PO TID PRN muscle spasm #90 11/13/23 tabs insulin glargine 100 unit/mL (3 20 unit (0.2 mL) subcut BID 90 11/13/23 mL) subcutaneous pen (Lantus days #36 mL Solostar U-100 Insulin) insulin lispro 100 unit/mL 6 unit (0.06 mL) subcut TID #15 mL 11/13/23 subcutaneous pen (Humalog KwikPen (U-100) Insulin) metformin 1,000 mg tablet 1,000 mg PO BID #60 tabs 11/13/23 omeprazole 20 mg capsule,delayed 20 mg PO BID #180 caps 11/13/23 release metronidazole 500 mg tablet 500 mg PO BID 7 days #14 tabs 12/04/23 oxycodone 5 mg tablet 5 mg PO Q6H PRN pain #20 tabs 12/04/23 Allergies Allergy/AdvReac Type Severity Reaction Status Date / Time Iodinated Contrast Media Allergy Intermediate Anaphylaxis Verified 12/04/23 11:57 Review of Systems 2 Review of Systems: Yes all other systems are reviewed and are negative PMFSH Past Medical History Medical History Hypertension Hypertensive emergency Acute non-ST elevation myocardial infarction (NSTEMI) UTI (urinary tract infection) Anemia Bilateral hand numbness Bilateral hand pain HSV (herpes simplex virus) infection Smoking TIA (transient ischemic attack) DJD (degenerative joint disease) GERD (gastroesophageal reflux disease) Asthma Obesity Diabetes mellitus HTN (hypertension) Surgical History H/O cardiac catheterization Hx of tubal ligation Hx of cholecystectomy Hx of appendectomy Hx of section Family History Family History Mother Heart disease Diabetes Hypertension Hyperlipidemia Fibromyalgia Father No problems noted. Brother No problems noted. Brother No problems noted. Brother No problems noted. Sister Deep vein thrombosis Son No problems noted. Son No problems noted. Daughter Hypertension Daughter No problems noted. Maternal Aunt History of breast cancer Social History Social History Household Members: Family Housing: Apartment Do you presently have visiting nurse or other home services: No Alcohol intake: current Alcohol intake frequency: holidays/special occasions only Patient Tobacco Use Status: Never used Tobacco Tobacco use type: Cigarette Cigarettes Per Day: 3 Smoked in Last 30 Days: No e-Cigarette/Vaping Use: Never Used Second Hand Smoke Exposure: No Use of substances other than those prescribed or required for medical reasons: No Advance Directives: No Advance Directives Information Provided: No Do you have a plan to hurt others: No Plan Patient : No service: No Current occupational status: employed Cognitive needs: No Hearing needs: No Vision needs: Yes (glasses) Physical Exam 2 Vital Signs: Vital Signs: Last Vital Signs Temp 98.3 F 12/04/23 19:23 Pulse 89 12/04/23 19:23 Resp 16 12/04/23 19:23 BP 224/118 H 12/04/23 19:23 Pulse Ox 98 12/04/23 19:23 O2 Del Method Room Air 12/04/23 19:23 BMI result Body Mass Index 32.6 Appearance: Alert. Oriented X3. No acute distress. Eyes: PERRLA, No Nystagmus ENT: Pharynx normal. Oral Mucosa moist Neck: Normal inspection. Neck supple. CVS: Normal heart rate and rhythm. Pulses normal. Respiratory: No respiratory distress. Equal air entry bilateral, no wheezing/rales/rhonchi Abdomen: Soft and nontender. Bowel sounds are present, no mass palpable, no CVA tenderness pelvic: Slight vaginal discharge no faul odor noticed Skin: Skin warm and dry. Normal skin color. Normal skin turgor. Extremities: No lower extremity edema. No calf tenderness Back: Diffuse lumbar spinal no focal spine tenderness SLR positive 45 degrees right leg Neuro: Oriented X 3. No motor deficit. No sensory deficit.No cerebellar signs , cranial nerves II-XII intact Course Course Course Narrative: This is an RME: Additional HPI, ROS, PE not included below will be deferred to primary provider. RME assessment and note performed by: Luiza Small PA-C This is a 2-thfk-gls-female, with a hx of NSTEMI, GERD, asthma, DM, who presents to the ER with complaints of back pain for the last 3 days. No trauma or injury. She also feels numbness and tingling to her bilateral arms. No chest pain or shortness for breath. Also reporting vaginal discharge, no concerns for sexually transmitted infections. No abdominal pain. Plan: Labs, EKG, UA Medications Administered Discontinued Medications Generic Name Dose Route Start Last Admin Trade Name Freq PRN Reason Stop Dose Admin Metronidazole 500 mg 12/04/23 22:27 12/04/23 22:30 Metronidazole 500 Mg Tablet PO 12/04/23 22:28 500 mg ONCE ONE Administration Oxycodone HCl 10 mg 12/04/23 22:04 12/04/23 22:29 Oxycodone Hcl Immed Release 5 Mg Tablet PO 12/04/23 22:05 10 mg ONCE ONE Administration Medical Decision Making Medical Decision Making [facility] Narrative: Patient with fibromyalgia with low back pain workup is negative for acute will discharge patient pain management also had vaginal discharge very scant will give Flagyl pending culture Differential Diagnosis Differential Diagnoses: The differential diagnosis associated with the presentation includes Lab Data [facility] Lab Attestation statement: I reviewed the patient's lab results. 12/04/23 12:16 12/04/23 12:16 Labs: Lab Results 12/04/23 12/04/23 Range/Units 12:16 15:54 WBC 12.8 H (4.8-10.8) X10*3/uL RBC 5.19 (4.20-5.50) X10*6/uL Hgb 11.8 L (12.0-16.0) g/dl Hct 37.9 (37.0-47.0) % MCV 73.0 L (80.0-98.0) fL MCH 22.7 L (27.0-33.0) pg MCHC 31.1 (31.0-35.0) g/dl RDW 16.3 H (11.0-16.0) % Plt Count 312 (160-400) X10*3/uL MPV 12.1 (9.4-12.3) fL Immature Gran % (Auto) 0.3 (0.0-0.4) % Neut % (Auto) 65.9 (45-73) % Lymph % (Auto) 25.5 (20-40) % [place] % (Auto) 5.9 (2-11) % Eos % (Auto) 2.0 (0-4) % Baso % (Auto) 0.4 (0-2) % Lymph # (Auto) 3.3 (1.2-4.9) X10*3/uL [place] # (Auto) 0.8 (0.1-1.2) X10*3/uL Eos # (Auto) 0.3 (0.0-0.4) X10*3/uL Baso # (Auto) 0.1 (0.0-0.2) X10*3/uL Abs Immat Gran (auto) 0.04 H (0.00-0.03) X10*3/uL Absolute Neuts (auto) 8.4 H (2.0-8.3) x10*3/uL Absolute Nucleated RBC 0.000 (0.0-0.012) X10*3/uL Nucleated RBC % (auto) 0.0 (0.0-0.2) /100WBC PT 12.7 (11.1-13.3) SEC INR 1.0 (0.9-1.1) APTT 24.6 L (26.0-36.8) SEC Sodium 138 (135-145) mmol/L Potassium 3.1 L (3.3-5.1) mmol/L Chloride 103 (96-108) mmol/L Carbon Dioxide 26 (22-29) mmol/L Anion Gap 12 (12-20) BUN 12 (9-16) mg/dL Creatinine 0.82 (0.5-1.4) mg/dL Estim Creat Clear Calc 86.1 Estimated GFR > 60 Random Glucose 223 H (60-115) mg/dL Calcium 9.3 D (8.4-10.2) mg/dL Magnesium 1.8 (1.6-2.6) mg/dL Total Bilirubin 0.6 (0.0-1.0) mg/dL Direct Bilirubin 0.2 (0.0-0.5) mg/dL AST 16 (5-31) U/L ALT 17 (0-31) U/L Alkaline Phosphatase 82 (39-117) U/L Troponin I High Sens 44.6 H 45.8 H (<3.5-17.0) ng/L Total Protein 7.2 (6.5-8.0) g/dL Albumin 3.7 (3.5-5.0) g/dL Beta HCG, Quant < 2 mIU/mL Urine Color Dark Yellow Urine Appearance Cloudy Urine pH 6.0 (5.0-9.0) Ur Specific [place] >= 1.030 H (1.005-1.025) Urine Protein 100 (2+) H (Neg-Trace) mg/dL Urine Glucose (UA) >=1000 H (Negative) mg/dL Urine Ketones 15 (Negative) mg/dL Urine Blood Negative (Negative) Urine Nitrite Negative (Negative) Ur Leukocyte Esterase Trace H (Negative) Urine RBC 0-2 (0-2) /HPF Urine WBC 6-10 H (0-5) /HPF Ur Squamous Epith Cells >20 (0-2) /HPF Urine Bacteria Trace (None Seen) Hyaline Casts 0-2 (0-2) /LPF Influenza Type A (PCR) NEGATIVE (Negative) Influenza Type B (PCR) NEGATIVE (Negative) RSV RNA Qual (PCR) NEGATIVE (Negative) SARS-CoV-2 RNA (RT-PCR) NEGATIVE (Negative) Independent Interpretation I performed an independent interpretation of an: Plain X-Ray Radiology Impression Discussion of test interpretation with radiology: I have reviewed the radiologist's reading. Radiologist Impression: [place] [id number] XRay Report Signed Patient: Amy Persaud MR#: [id number] : 1980 Acct:[id number] Age/Sex: 43 / F ADM Date: 12/04/23 Loc: HO.ED Attending Dr: Ordering Physician: Julien Lopez MD Date of Service: 12/04/23 Procedure(s): XR lumbar spine 2-3V Accession Number(s): [id number] cc: Derrek Hollingsworth MD; Julien Lopez MD~ EXAMINATION: XR LUMBOSACRAL SPINE CLINICAL INFORMATION: Low back pain COMPARISON: None available. TECHNIQUE: Three views of the lumbosacral spine. FINDINGS: The vertebral bodies and posterior elements are normal. The disc spaces are preserved and the vertebral alignment is normal. The paraspinal soft tissues are normal. XR/XR lumbar spine 2-3V IMPRESSION: Unremarkable lumbar spine exam Discharge Plan Discharge Clinical Impression: Chronic back pain, Bacterial vaginosis Patient Disposition: Home, Self-Care Instructions: Bacterial Vaginosis (ED), Chronic Back Pain (DC) Additional Instructions: Antibiotic as prescribed for vaginal infection Final report of culture will be back in 2-3 days will inform you if anything positive Pain medication as prescribed Follow with your PCP Prescriptions: New oxycodone 5 mg tablet 5 mg PO Q6H PRN (Reason: pain) Qty: 20 0RF Rx Instructions: Partial Fill upon patient request. metronidazole 500 mg tablet 500 mg PO BID 7 Days Qty: 14 0RF No Action (DME) nebulizers Misc See Rx Instructions .Route Qty: 1 0RF Rx Instructions: to use every 4 hours as needed for wheezing (DME) blood pressure monitor Kit See Rx Instructions .Route Qty: 1 0RF Rx Instructions: As directed (DME) pen needle, diabetic [Comfort EZ Pen [place]] 32 gauge x 5/16 needle See Rx Instructions .Route Qty: 100 4RF Rx Instructions: As directed injects 4X/day (DME) FreeStyle Chiquita 2 [place] Misc See Rx Instructions .Route Qty: 1 0RF Rx Instructions: As directed (DME) blood-glucose meter [FreeStyle Lite Meter] Kit See Rx Instructions .Route Qty: 1 0RF Rx Instructions: As directed Trulicity 0.75 mg/0.5 mL pen injector 0.75 mg subcut WE Qty: 2 5RF (DME) Dexcom G7 Sensor Device See Rx Instructions .ROUTE .MEDSUPPLY Qty: 3 11RF Rx Instructions: As directed every ten days (DME) blood-glucose meter [FreeStyle [place]] Kit See Rx Instructions .ROUTE .MEDSUPPLY Qty: 1 0RF Rx Instructions: As directed oxycodone 5 mg tablet 5 mg PO Q6H PRN (Reason: pain) Qty: 20 0RF Rx Instructions: Partial Fill upon patient request. lisinopril 10 mg Tablet 10 mg PO DAILY 90 Days Qty: 90 0RF Protocol: Hold for SBP< HOLD for SBP < : 90 fluticasone propion-salmeterol 115-21 mcg/actuation HFA aerosol inhaler 2 puff inhalation BID Qty: 12 5RF insulin glargine [Lantus Solostar U-100 Insulin] 100 unit/mL (3 mL) insulin pen 20 unit subcut BID 90 Days Qty: 36 0RF metformin 1,000 mg tablet 1,000 mg PO BID Qty: 60 8RF omeprazole 20 mg capsule,delayed release(DR/EC) 20 mg PO BID Qty: 180 3RF amlodipine 10 mg tablet 10 mg PO BEDTIME 90 Days Qty: 90 0RF aspirin 81 mg tablet,delayed release (DR/EC) 81 mg PO DAILY 90 Days Qty: 90 8RF atorvastatin 80 mg tablet 80 mg PO DAILY 90 Days Qty: 90 0RF cyclobenzaprine 10 mg tablet 10 mg PO TID PRN (Reason: muscle spasm) Qty: 90 3RF clopidogrel 75 mg tablet 75 mg PO DAILY 42 Days Qty: 42 0RF albuterol sulfate 90 mcg/actuation aero powdr breath act w/sensor 2 inh inhalation Q4-6H PRN (Reason: shortness of breath or wheezing) Qty: 1 0RF Rx Instructions: May dispense medication equivalent accepted by patient's insurance albuterol sulfate 0.63 mg/3 mL solution for nebulization 0.63 mg inhalation Q4-6H PRN (Reason: shortness of breath or wheezing) Qty: 90 0RF Rx Instructions: May dispense medication equivalent accepted by patient's insurance insulin lispro [Humalog KwikPen Insulin] 100 unit/mL insulin pen 6 unit subcut TID Qty: 15 3RF (DME) FreeStyle Chiquita 2 Sensor Kit See Rx Instructions .Route Qty: 2 4RF Rx Instructions: As directed change every 14 days Print Language: Upper Sorbian
--- NOTE | 2023-12-04 11:59 | ECG_ITS ---
Test Reason : weakness Blood Pressure : / mmHG Vent. Rate : 092 BPM Atrial Rate : 092 BPM P-R Int : 168 ms QRS Dur : 090 ms QT Int : 390 ms P-R-T Axes : 051 -29 146 degrees QTc Int : 482 ms Normal sinus rhythm Left ventricular hypertrophy with repolarization abnormality ( R in aVL , [place] product ) Prolonged QT Abnormal ECG When compared with ECG of 26-JUL-2023 13:46, No significant change was found Referred By: Luiza Small Electronically Signed By:HUMA FERMIN
[2023-12-04 12:21] LABS: MANUAL DIFF FLAG NO
[2023-12-04 12:26] LABS: Basophils Absolute Auto 0.1 X10*3/uL (0.0-0.2); Basophils Percent Auto 0.4 % (0-2); Eosinophils Absolute Auto 0.3 X10*3/uL (0.0-0.4); Hematocrit 37.9 % (37.0-47.0); Hemoglobin 11.8 g/dl (12.0-16.0); Imm Gran Abs Auto 0.04 X10*3/uL (0.00-0.03); Imm Gran Pct Auto 0.3 % (0.0-0.4); Lymphocytes Absolute Auto 3.3 X10*3/uL (1.2-4.9); Lymphocytes Percent Auto 25.5 % (20-40); Mean Corpuscular HGB Conc 31.1 g/dl (31.0-35.0); Mean Corpuscular Hemoglobin 22.7 pg (27.0-33.0); Mean Platelet Volume 12.1 fL (9.4-12.3); Monocytes Absolute Auto 0.8 X10*3/uL (0.1-1.2); Monocytes Percent Auto 5.9 % (2-11); Neutrophils Absolute Auto 8.4 x10*3/uL (2.0-8.3); Neutrophils Percent Auto 65.9 % (45-73); Platelet Count 312 X10*3/uL (160-400); Red Blood Count 5.19 X10*6/uL (4.20-5.50); Red Cell Distribution Width 16.3 % (11.0-16.0); White Blood Count 12.8 X10*3/uL (4.8-10.8)
[2023-12-04 12:28] LABS: Appearance Urine Cloudy; Color Urine Dark Yellow; Glucose Urine UA >=1000 mg/dL (Negative); Leukocyte Esterase Urine Trace (Negative); Nitrite Urine Negative (Negative); Specific Gravity - Urine >= 1.030 (1.005-1.025); UMIC TRIGGER UACC YES; Urine Blood Negative (Negative); Urine Ketones 15 mg/dL (Negative); Urine Protein 100 (2+) mg/dL (Neg-Trace)
[2023-12-04 12:31] LABS: Bacteria Urine Trace (None Seen); Hyaline Casts Urine 0-2 /LPF (0-2); RBC Urine 0-2 /HPF (0-2); Squamous Epithelial Cell Urine >20 /HPF (0-2); UACC Culture Trigger YES
[2023-12-04 12:32] LABS: Prothrombin Time 12.7 SEC (11.1-13.3)
[2023-12-04 12:35] LABS: Partial Thromboplastin Time 24.6 SEC (26.0-36.8)
[2023-12-04 12:46] LABS: Troponin-I High Sensitivity 44.6 ng/L (<3.5-17.0)
[2023-12-04 12:48] LABS: Alanine Aminotransferase 17 U/L (0-31); Albumin Level 3.7 g/dL (3.5-5.0); Alkaline Phosphatase 82 U/L (39-117); Anion Gap 12 (12-20); Aspartate Amino Transferase 16 U/L (5-31); Bilirubin Direct 0.2 mg/dL (0.0-0.5); Bilirubin Total 0.6 mg/dL (0.0-1.0); Blood Urea Nitrogen 12 mg/dL (9-16); Calcium 9.3 mg/dL (8.4-10.2); Carbon Dioxide 26 mmol/L (22-29); Chloride 103 mmol/L (96-108); Creatinine Clr Calc Pharmacy 86.1; Estimated Glomerular Filt Rate > 60; Glucose Random 223 mg/dL (60-115); HCG Quantitative < 2 mIU/mL; Magnesium 1.8 mg/dL (1.6-2.6); Potassium 3.1 mmol/L (3.3-5.1); Sodium 138 mmol/L (135-145); Total Protein 7.2 g/dL (6.5-8.0)
[2023-12-04 13:05] LABS: Influenza A PCR NEGATIVE (Negative); Influenza B PCR NEGATIVE (Negative); Resp Syncy Virus RNA Qual PCR NEGATIVE (Negative); SARS COV2 PCR INHOUSE NEGATIVE (Negative)
[2023-12-04 16:27] LABS: Troponin-I High Sensitivity 45.8 ng/L (<3.5-17.0)
[2023-12-04 19:23] VITALS: BP 224/118; PULSE 89; RESP 16; TEMP 36.8; O2SAT 98
--- NOTE | 2023-12-04 20:47 | PC.NURSE ---
stabbing pain into R leg up to her back and side. worse when walking to bending. L calf calf pain which also comes up leg. pt changing positions and gets out of bed very slowly, muscle relaxers not helping. doesnt think she pulled a muscle. reporting lower abd pain as well, with foul smelling urine.
[2023-12-04] MEDS: oxyCODONE HCl Immed Release 5 MG TABLET 10 MG PO (22:29)
[2023-12-04] MEDS: metroNIDAZOLE 500 MG TABLET PO (22:30)
[2023-12-05 00:02] VITALS: BP 193/104; PULSE 89; RESP 20; TEMP 36.7; O2SAT 97
[2023-12-05 00:09] VITALS: BP 193/104; PULSE 89; RESP 20; TEMP 36.7; O2SAT 97
[2023-12-05 05:48] LABS: CT PCR NOT DETECTED (Not Detect.); NG PCR NOT DETECTED (Not Detect.)
== END 2023-12-05 00:10 | disposition home or self-care (01) ==
PROVIDERS: Physician Assistant Medical; Emergency Provider Internal Medicine; PCP Internal Medicine
DX: M54.50 Low back pain, unspecified (principal); M70.10 Bursitis, unspecified hand; N76.0 Acute vaginitis; R94.31 Abnormal electrocardiogram [ECG] [EKG]; R20.0 Anesthesia of skin; M79.605 Pain in left leg; M79.604 Pain in right leg; Z03.818 Encounter for observation for suspected exposure to other biological agents ruled out; Z79.899 Other long term (current) drug therapy
CPT/HCPCS: 0241U; 36415; 72100; 80048; 80076; 81001; 83735; 84484; 84702; 85025; 85610; 85730; 87086; 87491; 87591; 93005; 99283; 99284

== ENCOUNTER 2023-12-07 10:29 | Outpatient (AMB) | payer OTHER, SELFPAY ==
[2023-12-07 10:33] VITALS: BP 162/100; PULSE 103; O2SAT 98; BMI 33.5
--- NOTE | 2023-12-07 10:33 | A.OFFPC_ITS ---
Vital Signs 12/07/23 10:33 Height 5 ft 2 in Weight 183 lb BMI 33.5 BP 162/100 H Blood Pressure Location Lt brachial Position Sitting Pulse 103 H Pulse Source Pulse Oximeter Pulse Oximetry (%) 98 Oxygen Delivery Method Room Air Intake Visit Reasons: 1 Month F/U Distribution Lineman Required: No Accompanied by: Self / Same As Patient Allergies Iodinated Contrast Media Allergy (Intermediate, Verified 12/07/23 10:34) Anaphylaxis Medication List - Last Reconciled 12/07/23 by Derrek Hollingsworth MD albuterol sulfate 90 mcg/actuation 2 inhalations inhalation Q4-6H PRN albuterol sulfate 0.63 mg (3 mL) inhalation Q4-6H PRN amlodipine 10 mg PO BEDTIME 90 days aspirin 81 mg PO DAILY 90 days atorvastatin 80 mg PO DAILY 90 days blood pressure monitor As directed blood-glucose meter (FreeStyle [place] kit) As directed blood-glucose meter (FreeStyle Lite Meter kit) As directed blood-glucose sensor ([employer] G7 Sensor device) As directed every ten days clopidogrel 75 mg PO DAILY 6 weeks cyclobenzaprine 10 mg PO TID PRN dulaglutide (Trulicity) 0.75 mg (0.5 mL) subcut WE flash glucose scanning reader ([employer]Style Chiquita 2 [place]) As directed flash glucose sensor (FreeStyle Chiquita 2 Sensor kit) As directed change every 14 days fluticasone propion-salmeterol 115-21 mcg/actuation 2 puffs inhalation BID insulin glargine (Lantus Solostar U-100 Insulin) 20 units (0.2 mL) subcut BID 90 days insulin lispro (Humalog KwikPen (U-100) Insulin) 6 units (0.06 mL) subcut TID lisinopril 10 mg See Protocol PO DAILY 90 days metformin 1,000 mg PO BID metronidazole 500 mg PO BID 7 days nebulizers to use every 4 hours as needed for wheezing omeprazole 20 mg PO BID oxycodone 5 mg PO Q6H PRN pen needle, diabetic (Comfort EZ Pen [place]) As directed injects 4X/day Tobacco use date assessed: 05/18/23 Dental Screening Dental Screen Date: 05/18/23 HPI 1 Month F/U HPI Details multiple diffuse c/o body pain; PFSH Medical History Hypertension Hypertensive emergency Acute non-ST elevation myocardial infarction (NSTEMI) UTI (urinary tract infection) Anemia Bilateral hand numbness Bilateral hand pain HSV (herpes simplex virus) infection Smoking TIA (transient ischemic attack) DJD (degenerative joint disease) GERD (gastroesophageal reflux disease) Asthma Obesity Diabetes mellitus HTN (hypertension) Surgical History H/O cardiac catheterization Hx of tubal ligation Hx of cholecystectomy Hx of appendectomy Hx of section Family History Mother Heart disease Diabetes Hypertension Hyperlipidemia Fibromyalgia Father No problems noted. Brother No problems noted. Brother No problems noted. Brother No problems noted. Sister Deep vein thrombosis Son No problems noted. Son No problems noted. Daughter Hypertension Daughter No problems noted. Maternal Aunt History of breast cancer Social History Household Members: Family Housing: Apartment Do you presently have visiting nurse or other home services: No Alcohol intake: current Alcohol intake frequency: holidays/special occasions only Patient Tobacco Use Status: Never used Tobacco Tobacco use type: Cigarette Cigarettes Per Day: 3 e-Cigarette/Vaping Use: Never Used Second Hand Smoke Exposure: No service: No Current occupational status: employed Cognitive needs: No Hearing needs: No Vision needs: Yes (glasses) Female Reproductive History Menstrual Age of Menarche: 12 Questionnaire PHQ-9 Over the last 2 weeks, how often have you been bothered by any of the following problems? 1. Little interest or pleasure in doing things: not at all 2. Feeling down, depressed, or hopeless: not at all 3. Trouble falling or staying asleep, or sleeping too much: not at all 4. Feeling tired or having little energy: not at all 5. Poor appetite or overeating: not at all 6. Feeling bad about yourself - or that you are a failure or have let yourself or your family down: not at all 7. Trouble concentrating on things, such as reading the newspaper or watching television: not at all 8. Moving or speaking so slowly that other people could have noticed. Or the opposite - being so fidgety or restless that you have been moving around a lot more than usual: not at all 9. Thoughts that you would be better off or of hurting yourself in some way: not at all Total score: 0 Depression Screening Interpretation: Negative Depression Screening Done: Yes Source: Developed by Drs. Willian Nassar, Monique Clark, Aaron Ortega and colleagues, with an educational walter from [employer]. Thrive Questionnaire Date Thrive assessed: 07/26/23 AUDIT C Alcohol Use Questionnaire (AUDIT-C) 1. How often do you have a drink containing alcohol?: 2-4 times a month 2. How many drinks containing alcohol do you have on a typical day when you are drinking?: 3 or 4 3. How often do you have six or more drinks on one occasion?: Less than monthly Total Score: 4 Score Reviewed/Action Taken: Yes VIKRAM-7 AMB Questionnaire VIKRAM-7 Date VIKRAM - 7 assessed: 11/13/23 Source: Developed by Drs. Willian Nassar, Monique Clark, Aaron Ortega and colleagues, with an educational walter from [employer]. Review of Systems Const Denies chills, Denies headache(s) and Denies weight loss ENT Denies headache(s) Card Denies chest pain, Denies syncope, Denies irregular heart rhythm and Denies dyspnea Resp Denies chest congestion, Denies cough and Denies dyspnea GI Denies abdominal pain, Denies change in stool character, Denies nausea and Denies vomiting Musc Denies deformity and Denies joint swelling Neuro Denies syncope and Denies headache(s) Physical exam (Primary Care) Vital Signs: Last Vital Signs Pulse 103 H 12/07/23 10:33 BP 162/100 H 12/07/23 10:33 Pulse Ox 98 12/07/23 10:33 Oxygen Delivery Method Room Air 12/07/23 10:33 BMI result Body Mass Index 33.5 Tobacco/Smoking Status: Tobacco use Status Tobacco use date assessed 05/18/23 12/07/23 10:38 Patient Tobacco Use Status Never used Tobacco 12/07/23 10:38 Tobacco use type Cigarette 12/07/23 10:38 e-Cigarette/Vaping Use Never Used 12/07/23 10:38 PHQ-9: PHQ-9 Score PHQ-9: Total score 0 12/07/23 10:46 Depression Screening Interpretation: Negative Thrive Assessment: Date of Thrive Assessment Date Thrive assessed 07/26/23 12/07/23 10:38 Const General: cooperative, comfortable, no acute distress and alert Neck Neck: Yes no lymphadenopathy Thyroid: Thyroid normal Resp Effort & Inspection: normal respiratory effort Auscultation: clear to auscultation bilaterally Percussion: percussion normal Cardio Jugular venous distension: no JVD Palpation: normal PMI Rate: regular rate Rhythm: regular rhythm Heart sounds: S1 normal heart sound present and S2 normal heart sound present GI Inspection: Yes normal to inspection Palpation (GI): No hepatosplenomegaly present Skin General skin exam: no rashes or lesions noted Extrem General: Yes no clubbing, cyanosis or edema Assessment and Plan Assessment & Plan (1) Chronic arthralgias of knees and hips: Code(s): M25.551 - Pain in right hip; M25.552 - Pain in left hip; M25.561 - Pain in right knee; M25.562 - Pain in left knee; G89.29 - Other chronic pain Plan: referred Orders: Orders XR hand LT 2V Today M79.643 - Pain in unspecified hand XR hand RT 2V Today M79.643 - Pain in unspecified hand Referrals Pain Management Referral M54.9 - Dorsalgia, unspecified Rheumatology Referral M25.50 - Pain in unspecified joint Coding Level of Care Code Est Pt Level 3 (95661) Diagnoses Chronic arthralgias of knees and hips M25.551; M25.552; M25.561; M25.562; G89.29
== END 2023-12-07 11:00 | disposition home or self-care (01) ==
PROVIDERS: PCP Internal Medicine; Visit Provider Internal Medicine
DX: M25.551 Pain in right hip (principal); M25.552 Pain in left hip; M25.561 Pain in right knee; M25.562 Pain in left knee; G89.29 Other chronic pain
CPT/HCPCS: 99213

== ENCOUNTER 2023-12-08 10:33 | Outpatient (AMB) | payer OTHER, SELFPAY ==
--- NOTE | 2023-12-08 09:04 | A.OFFVIS_ITS ---
Vital Signs 12/08/23 10:38 Height 5 ft 2 in Weight 182 lb 15.739 oz BMI 33.5 BP 140/80 H Blood Pressure Location Rt brachial Position Sitting Pulse Source Pulse Oximeter Intake Visit Reasons: Type 2 DM/LVM Intake Note: Patient presents today for a follow-up on Type 2 Diabetes Mellitus: Last Diabetic Eye exam: DUE Last Podiatry Exam: Does not see a Chicken Catcher Most recent HbA1c: 11.8%, Random Glucose- 202mg/dL, Today Machinery Dismantler Required: No Accompanied by: Self / Same As Patient Allergies Iodinated Contrast Media Allergy (Intermediate, Verified 12/08/23 10:37) Anaphylaxis HPI Comments Details: 43 YO F who is seen in f/u for T2DM. She was last seen by myself last month at which time she was transferred by ambulance to a local hospital for URI, elevated glucose and positive ketones. Since that time she has been seen by Kavita LOZANO several times for sensor training and pre pump education. Most recent A1C 11.8% 10/17 down from 12.8%. Initially diagnosed with T2DM 2018, started on insulin 02/16 when she started with [facility]. Hadn't seen Endo in the past. Was initially started on treatment with metformin at time of diagnosis. Current regimen: Lantus 20 units twice daily Humalog 10 units three times per day Trulicity .75mg weekly metformin 1000 mg BID Dexcom average glucose: [297 ] 14 day continuous glucose monitor report reviewed Days with CGM data fifty % TIme in ranges: 83 % very high (above 250) 17 % high ?(181-250) 0 % in range ?(70-180] 0 % low (69-55) 0 % ?very low (below 54) 48 Standard Deviation Interpretation [high readings uniformly throughout the 24 hour. ] Family history of T2DM in mother, grandmother Has eyes checked yearly, last eye exam 07/18, denies retinopathy. yearly exam Denies neuropathy, + numbness, tingling, no cramping Does not see podiatry Has nephropathy, on BONY/ARB. Has HLD, on statin and zetia. Needs lipid profile Followed by cardiology last seen 2022: she will schedule f/u recent stemi nuclear stress test on 05/03/2021 which was equivocal for small mild distal septal ischemia. Echocardiogram from 09/04/2020 showed EF 55-60%, moderate LVH, moderate diastolic dysfunction with increased filling pressures, mild MR. A cardiac catheterization was done on 07/20/2021 showing normal coronary arteries She has low back pain and has been referred from her PCP to see specialist Has had recent diabetes education. [facility] screen Fibrosis-4 (Fib-4) Index for liver fibrosis (calculated on lab work done: 12/18) Advanced fibrosis excluded Approximate Fibrosis stage Nicky 0-1 *Use with caution in patients <35 or >65 years old, as the score has been shown to be less reliable in these patients. Prior Imaging [ Abd CT 03/18: LIVER, GALLBLADDER, AND BILIARY TREE: The liver is normal in size, shape, and attenuation. No focal hepatic lesion or biliary ductal dilatation is present. The gallbladder has been surgically removed. ] Action Plan: [] rescreen two years from date of screening labs[ 12/20] [facility] Medical History Hypertension Hypertensive emergency Acute non-ST elevation myocardial infarction (NSTEMI) UTI (urinary tract infection) Anemia Bilateral hand numbness Bilateral hand pain HSV (herpes simplex virus) infection Smoking TIA (transient ischemic attack) DJD (degenerative joint disease) GERD (gastroesophageal reflux disease) Asthma Obesity Diabetes mellitus HTN (hypertension) Surgical History H/O cardiac catheterization Hx of tubal ligation Hx of cholecystectomy Hx of appendectomy Hx of section Family History Mother Heart disease Diabetes Hypertension Hyperlipidemia Fibromyalgia Father No problems noted. Brother No problems noted. Brother No problems noted. Brother No problems noted. Sister Deep vein thrombosis Son No problems noted. Son No problems noted. Daughter Hypertension Daughter No problems noted. Maternal Aunt History of breast cancer Social History Household Members: Family Housing: Apartment Do you presently have visiting nurse or other home services: No Alcohol intake: current Alcohol intake frequency: holidays/special occasions only Patient Tobacco Use Status: Never used Tobacco Tobacco use type: Cigarette Cigarettes Per Day: 3 e-Cigarette/Vaping Use: Never Used Second Hand Smoke Exposure: No service: No Current occupational status: employed Cognitive needs: No Hearing needs: No Vision needs: Yes (glasses) Female Reproductive History Menstrual Age of Menarche: 12 Physical Exam Vital Signs: Last Vital Signs BP 140/80 H 12/08/23 10:38 BMI result Body Mass Index 33.5 Const Other: Absence of Cushingoid features. Absence of acromegalic features. Neck exam reveals nl size thyroid about 15 gms. No thyroid nodules palpable. Heart S1 S2, Reg R/R. No M/R G. Skin exam reveals absence of vitiligo or acanthosis nigricans. No edema Extrem Other: Visual exam of foot performed. No ulcerations or open lesions. + inter digit maceration between 4th and 5th toe bilaterally, no fissuring.+ onychomycosis, no callouses. Sensation intact to monofilament exam. Vibratory sensation is normal with 128 Hz tuning fork. Office Procedures Glucose Monitoring Details Details: see [facility] [id number] - Glucose monitoring, continuous-physician I&R Procedure code (CPT) selection complete Results Reviewed Results Reviewed: Laboratory Last Values Glucose (Clinic) 202 mg/dL (60-115) H 12/08/23 10:43 Laboratory Tests 01/14/22 07/15/22 01/30/23 11:31 13:46 09:36 Plt Count Potassium Creatinine Estimated GFR Glucose (Clinic) Random Glucose Hgb A1c (Clinic) 11.2 H 12.0 H Hemoglobin A1c % Calcium AST ALT Cholesterol LDL Cholesterol, Calc HDL Cholesterol Urine Creatinine 84.78 Urine Microalbumin 86.0 Microalb/Creat Ratio 101.4 04/26/23 07/28/23 09/25/23 13:58 06:07 11:36 Plt Count 285 Potassium 3.1 L Creatinine Estimated GFR > 60 Glucose (Clinic) Random Glucose Hgb A1c (Clinic) 9.0 H Hemoglobin A1c % 11.8 H Calcium 8.8 AST 19 ALT 12 Cholesterol 179 LDL Cholesterol, Calc 115 H HDL Cholesterol 35 L Urine Creatinine Urine Microalbumin Microalb/Creat Ratio 11/08/23 12/04/23 16:26 12:16 Plt Count 312 Potassium 3.1 L Creatinine 0.82 Estimated GFR > 60 Glucose (Clinic) 327 H Random Glucose 223 H Hgb A1c (Clinic) Hemoglobin A1c % Calcium 9.3 D AST 16 ALT 17 Cholesterol LDL Cholesterol, Calc HDL Cholesterol Urine Creatinine Urine Microalbumin Microalb/Creat Ratio Assessment & Plan Assessment & Plan (1) Type 2 diabetes mellitus with unspecified complications: Code(s): E11.8 - Type 2 diabetes mellitus with unspecified complications Category: Medical Plan: Poorly controlled type 2 diabetes with 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 Her most recent A1c was 11.8% 09/25/23. Dexcom glucose sensor shows poor controls consistently high readings. She was asked to increase her Lantus to 30 units b.i.d.. After 4 days if her numbers remain above target she is to increase her Humalog from 10 units t.i.d. to 14 units t.i.d.Continue Trulicity and we will increase dosing next visit if she is tolerating this. Continue metformin 1000 mg p.o. b.i.d.. A prescription was sent for ketone test strips and a new glucometer in the event her sensor fails. She will continue to follow up with hospital educator for pre pump education. Prescription for fungal cream sent to be used between the 4th and 5th toe bilaterally. (2) Tinea pedis: Code(s): B35.3 - Tinea pedis Plan: See above Orders: Orders C Peptide Today E11.8 - Type 2 diabetes mellitus with unspecified complications AMB Glucose Monitoring Today E11.8 - Type 2 diabetes mellitus with unspecified complications Microalbumin, Random (w Creat) Today E11.8 - Type 2 diabetes mellitus with unspecified complications Glutamic acid decarboxylase Ab Today E11.8 - Type 2 diabetes mellitus with unspecified complications Islet Cell Antibody Scrn/Titer Today E11.8 - Type 2 diabetes mellitus with unspecified complications Creatinine Urine Today E11.8 - Type 2 diabetes mellitus with unspecified complications Medications: New acetone (urine) test (Ketone Urine Test strips) As directed prn over 250, nausea, vomiting, illness tid 50 ea 1RF E11.8 - Type 2 diabetes mellitus with unspecified complications clotrimazole 1% apply between 4th and 5th toe right and left foot 1 appl topical BID 4 weeks 30 grams 1RF B35.3 - Tinea pedis Changed From insulin glargine (Lantus Solostar U-100 Insulin) 20 units (0.2 mL) subcut BID 90 days 36 mL 0RF E11.8 - Type 2 diabetes mellitus with unspecified complications To insulin glargine (Lantus Solostar U-100 Insulin) 30 units (0.3 mL) subcut BID 90 days 54 mL 4RF E11.8 - Type 2 diabetes mellitus with unspecified complications From insulin lispro (Humalog KwikPen (U-100) Insulin) 6 units (0.06 mL) subcut TID 15 mL 3RF To insulin lispro (Humalog KwikPen (U-100) Insulin) 10-14 units tid before meals subcutaneously 3 times a day; 30 days 15 mL 3RF 42 Refilled blood-glucose meter (FreeStyle Lite Meter kit) As directed 1 ea 0RF Patient Instructions: Symptoms of DKA were reviewed: early: frequent urination, dry mouth, fatigue, feeling ill, severe symptoms: ketones in the urine, abdominal pain, nausea, vomiting and weakness. It is important to hydrate with sugar free liquids every 30 minutes and bring the sugars down to normal levels. Treatment of low glucose The patient was counseled to achieve a target A1C of 7% (154 avg). Fasting blood sugars should be 90-130 in the morning and less than 180 two hours after meals. Reviewed the relationship between poor diabetic control and the development of complications Coding Level of Care Code Est Pt Level 5 (40973) Complex EM visit Add On G2211 Diagnoses Type 2 diabetes mellitus with unspecified complications E11.8 Tinea pedis B35.3 CPT Codes Details - CPT: 68275 - Glucose monitoring, continuous-physician I&R ([id number]) Time Spent (min) 60 Comment Time spent reviewing labs/provider notes, glucose,sensor reports, face to face, chart doc
[2023-12-08 10:38] VITALS: BP 140/80; BMI 33.5
[2023-12-08 10:47] LABS: Glucose, Whole Blood 202 mg/dL (60-115)
== END 2023-12-08 11:10 | disposition home or self-care (01) ==
PROVIDERS: PCP Internal Medicine; Visit Provider Nurse Practitioner Adult Health
DX: E11.8 Type 2 diabetes mellitus with unspecified complications (principal); B35.3 Tinea pedis
CPT/HCPCS: 95251; 99215; G2211

== ENCOUNTER → 2023-12-08 10:33 | Outpatient (BNVA) | payer OTHER, SELFPAY | PROVIDERS: PCP Internal Medicine; Visit Provider Nurse Practitioner Adult Health | DX: E11.8 Type 2 diabetes mellitus with unspecified complications (principal); B35.3 Tinea pedis | CPT/HCPCS: 82947; 99212 ==

== ENCOUNTER 2023-12-28 10:10 | Outpatient (REF) | payer OTHER, SELFPAY ==
--- NOTE | ~2023-12-28 | XR_ITS ---
EXAMINATION: XR HAND RIGHT 3 VIEWS CLINICAL INFORMATION: Pain in unspecified hand M79.643. COMPARISON: XR Right hand 09/23/2021 TECHNIQUE: PA, lateral, and oblique views of the right hand. FINDINGS: At the first carpometacarpal phalangeal joint there is joint space narrowing, pulmonary and ulnar subluxation of the proximal phalanx of the thumb. There is a tiny cyst at the radial cortex of the head of the first metacarpal. The bones of the hand are intact. Joint spaces are otherwise normal appearing. Soft tissues are unremarkable. XR/XR hand RT 2V IMPRESSION: Joint space narrowing and subluxation involving the first metacarpal phalangeal joints. Uncertain if this is secondary to degenerative changes or ligamentous injury. No acute bony injury is seen. Electronically signed by: Graham Olivo MD 03/06/2024 11:46 AM EST
[2023-12-28 10:31] LABS: MANUAL DIFF FLAG NO
[2023-12-28 10:50] LABS: Basophils Absolute Auto 0.1 X10*3/uL (0.0-0.2); Basophils Percent Auto 0.5 % (0-2); Eosinophils Absolute Auto 0.3 X10*3/uL (0.0-0.4); Eosinophils Percent Auto 3.1 % (0-4); Hematocrit 36.4 % (37.0-47.0); Hemoglobin 11.5 g/dl (12.0-16.0); Imm Gran Abs Auto 0.04 X10*3/uL (0.00-0.03); Imm Gran Pct Auto 0.4 % (0.0-0.4); Lymphocytes Absolute Auto 3.2 X10*3/uL (1.2-4.9); Lymphocytes Percent Auto 29.1 % (20-40); Mean Corpuscular HGB Conc 31.6 g/dl (31.0-35.0); Mean Corpuscular Volume 72.9 fL (80.0-98.0); Mean Platelet Volume 11.1 fL (9.4-12.3); Monocytes Absolute Auto 0.6 X10*3/uL (0.1-1.2); Monocytes Percent Auto 5.7 % (2-11); Neutrophils Absolute Auto 6.7 x10*3/uL (2.0-8.3); Neutrophils Percent Auto 61.2 % (45-73); Platelet Count 282 X10*3/uL (160-400); Red Blood Count 4.99 X10*6/uL (4.20-5.50); Red Cell Distribution Width 16.4 % (11.0-16.0)
[2023-12-28 10:55] LABS: Estimated Average Glucose 269 mg/dL; Hemoglobin A1C 286.2638 umol/L; Total Hemoglobin (HGBA1C) 2972.4164 umol/L
[2023-12-28 11:01] LABS: B Type Natriuretic Peptide 210 pg/mL (<100)
[2023-12-28 11:15] LABS: Alanine Aminotransferase 18 U/L (0-31); Albumin Level 3.7 g/dL (3.5-5.0); Alkaline Phosphatase 87 U/L (39-117); Anion Gap 12 (12-20); Aspartate Amino Transferase 17 U/L (5-31); Bilirubin Total 0.6 mg/dL (0.0-1.0); Blood Urea Nitrogen 9 mg/dL (9-16); Carbon Dioxide 27 mmol/L (22-29); Chloride 101 mmol/L (96-108); Cholesterol 176 mg/dL (<200); Estimated Glomerular Filt Rate > 60; Glucose Fasting 334 mg/dL (60-99); HDL Cholesterol 36 mg/dL (>40); LDL Cholesterol Calculated 116 mg/dL (<100); Potassium 3.1 mmol/L (3.3-5.1); Sodium 137 mmol/L (135-145); Total Protein 7.2 g/dL (6.5-8.0); Triglycerides 124 mg/dL (<150)
[2023-12-28 11:31] LABS: Thyroid Stimulating Hormone 1.07 uIU/mL (0.32-4.0)
[2023-12-28 11:56] LABS: Creatinine Urine 377.05 mg/dL; Microalbum/Creatinine Ratio Ur 103.9 ug/mg cr (<30)
[2023-12-30 02:37] LABS: C Peptide 5.08 ng/mL (0.80-3.85)
[2024-01-02 22:59] LABS: Glutamic acid decarboxylase Ab <5 IU/mL (<5)
[2024-01-08 23:03] LABS: Islet Cell Antibody Screen NEGATIVE (NEGATIVE)
== END 2023-12-28 10:11 | disposition home or self-care (01) ==
LOC: HO.LAB 10:10
PROVIDERS: Absent Provider Nurse Practitioner Adult Health; PCP Internal Medicine; Visit Provider Internal Medicine
DX: Z13.220 Encounter for screening for lipoid disorders (principal); Z13.9 Encounter for screening, unspecified; Z13.29 Encounter for screening for other suspected endocrine disorder; Z13.0 Encounter for screening for diseases of the blood and blood-forming organs and certain disorders involving the immune mechanism; E11.8 Type 2 diabetes mellitus with unspecified complications; M79.643 Pain in unspecified hand
CPT/HCPCS: 36415; 73120; 80053; 80061; 82043; 82570; 83036; 83880; 84443; 84681; 85025; 86341

== ENCOUNTER 2024-01-02 11:24 | Outpatient (AMB) | payer OTHER, SELFPAY ==
--- NOTE | 2024-01-02 11:27 | A.OFFVIS_ITS ---
Vital Signs 01/02/24 11:30 Height 5 ft 2 in Weight 185 lb 3.013 oz BMI 33.9 BP 168/100 H Blood Pressure Location Rt brachial Position Sitting Pulse 99 Pulse Source Pulse Oximeter Intake Visit Reasons: Type 2 DM/LVM Intake Note: Patient presents today for a follow-up for Type 2 Diabetes Mellitus: Last Diabetic eye exam was on: DUE Last Podiatry exam was on: Does not see a Paper Conservator Most recent HbA1c: 11.0%, 12/28/2023 Random Glucose- 284 mg/dL, Today Risk Assessment Consultant Required: No Accompanied by: Self / Same As Patient Allergies Iodinated Contrast Media Allergy (Intermediate, Verified 01/02/24 11:28) Anaphylaxis HPI Comments Details: 43 YO F who is seen in f/u for T2DM. She was last seen by myself 3 weeks ago at which time Lantus insulin was increased to 30 units bid. She has been seen by Kavita LOZANO several times for sensor training and pre pump education for which she needs additional visits. Most recent A1C 11.8% 10/17 down from 12.8%. Initially diagnosed with T2DM 2018, started on insulin 02/16 when she started with [facility]. Hadn't seen Endo in the past. Was initially started on treatment with metformin at time of diagnosis. Current regimen: Lantus 30 units twice daily Humalog 10 units three times per day Trulicity .75mg weekly metformin 1000 mg BID She does not have her sensor. She reports she has been running 200 in the am, varied readings throughout the day ing some diarrhea from metformin Family history of T2DM in mother, grandmother Has eyes checked yearly, last eye exam 07/18, denies retinopathy. yearly exam Denies neuropathy, + numbness, tingling, no cramping Does not see podiatry Has nephropathy, on BONY/ARB. Referred to neph 01/02/24 Has HLD, on statin and zetia. Needs lipid profile Followed by cardiology last seen 2022: she will schedule f/u recent stemi nuclear stress test on 05/03/2021 which was equivocal for small mild distal septal ischemia. Echocardiogram from 09/04/2020 showed EF 55-60%, moderate LVH, moderate diastolic dysfunction with increased filling pressures, mild MR. A cardiac catheterization was done on 07/20/2021 showing normal coronary arteries She has low back pain and has been referred from her PCP to see specialist She drinks regular Gatorade. Has had recent diabetes education. [facility] screen Fibrosis-4 (Fib-4) Index for liver fibrosis (calculated on lab work done: 12/18) Advanced fibrosis excluded Approximate Fibrosis stage Nicky 0-1 *Use with caution in patients <35 or >65 years old, as the score has been shown to be less reliable in these patients. Prior Imaging [ Abd CT 03/18: LIVER, GALLBLADDER, AND BILIARY TREE: The liver is normal in size, shape, and attenuation. No focal hepatic lesion or biliary ductal dilatation is present. The gallbladder has been surgically removed. ] Action Plan: rescreen two years from date of screening labs 12/20 [facility] Medical History (Updated 01/02/24 @ 12:12 by Ny Bolton NP) Diabetes mellitus with diabetic nephropathy Hypertension Hypertensive emergency Acute non-ST elevation myocardial infarction (NSTEMI) UTI (urinary tract infection) Anemia Bilateral hand numbness Bilateral hand pain HSV (herpes simplex virus) infection Smoking TIA (transient ischemic attack) DJD (degenerative joint disease) GERD (gastroesophageal reflux disease) Asthma Obesity Diabetes mellitus HTN (hypertension) Surgical History H/O cardiac catheterization Hx of tubal ligation Hx of cholecystectomy Hx of appendectomy Hx of section Family History Mother Heart disease Diabetes Hypertension Hyperlipidemia Fibromyalgia Father No problems noted. Brother No problems noted. Brother No problems noted. Brother No problems noted. Sister Deep vein thrombosis Son No problems noted. Son No problems noted. Daughter Hypertension Daughter No problems noted. Maternal Aunt History of breast cancer Social History Household Members: Family Housing: Apartment Do you presently have visiting nurse or other home services: No Alcohol intake: current Alcohol intake frequency: holidays/special occasions only Patient Tobacco Use Status: Never used Tobacco Tobacco use type: Cigarette Cigarettes Per Day: 3 e-Cigarette/Vaping Use: Never Used Second Hand Smoke Exposure: No service: No Current occupational status: employed Cognitive needs: No Hearing needs: No Vision needs: Yes (glasses) Female Reproductive History Menstrual Age of Menarche: 12 Physical Exam Vital Signs: Last Vital Signs Pulse 99 01/02/24 11:30 BP 168/100 H 01/02/24 11:30 BMI result Body Mass Index 33.9 Const Other: Absence of Cushingoid features. Absence of acromegalic features. Neck exam reveals nl size thyroid about 15 gms. No thyroid nodules palpable. No carotid bruits present. Lungs CTA. Heart S1 S2, Reg R/R. No M/R G. Skin exam reveals absence of vitiligo or acanthosis nigricans. No edema Visual exam of foot performed. No ulcerations or open lesions. No inter digit maceration or fissuring. No onychomycosis, no callouses. Sensation intact to monofilament exam. Vibratory sensation is normal with 128 Hz tuning fork. 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 Her most recent A1c was 11.8% 09/25/23. She has been started on Trulicity 0.75 mg weekly since her elevated A1c and this will be titrated upward to 1.5 mg weekly as she is tolerating this fine. She was advised after 1 week of the increased dose of Trulicity if her morning readings were above 170 that she should increase her Lantus by 2 units every 3 days until her morning sugar is less than 130. I am holding off on changing her over to Tresiba as she is interested in a pump and using this as a backup method once the patient is on a pump is complicated due to its long action. Diabetes Medication: Lantus 30 units twice daily Humalog 10 units three times per day Trulicity 1.5 mg weekly metformin 1000 mg BID She was counseled to discontinue regular Gatorade and to switch over to water with lemon juice. She will follow up with Kavita LOZANO for pre pump education. (2) Hypertension: Code(s): I10 - Essential (primary) hypertension Category: Medical Plan: Low-sodium diet, weight reduction increase lisinopril to 20 mg daily in a blood pressure cuff we will be ordered through DME. Sent tiger text to cardiology provider re: hasn't seen cardiology, bnp higher and had stemi earlier in the year. Orders: Referrals Nephrology Referral E11.21 - Type 2 diabetes mellitus with diabetic nephropathy Medications: New dulaglutide (Trulicity) 1.5 mg (0.5 mL) subcut QWEEK 28 days 2 mL 11RF E11.8 - Type 2 diabetes mellitus with unspecified complications lisinopril 20 mg PO DAILY 30 days 30 tabs 6RF [blood presure cuff] As directed 1 ea 0RF I10 - Essential (primary) hypertension Discontinued lisinopril Discontinued Reason: Doctor's Order 10 mg See Protocol PO DAILY 90 days 90 tabs 0RF dulaglutide (Trulicity) Discontinued Reason: Doctor's Order 0.75 mg (0.5 mL) subcut WE 2 mL 5RF Patient Instructions: The patient was counseled to achieve a target A1C of 7% (154 avg). Fasting blood sugars should be 90-130 in the morning and less than 180 two hours after meals. Reviewed the relationship between poor diabetic control and the developement of complications Coding Level of Care Code Est Pt Level 5 (93073) Complex EM visit Add On G2211 Diagnoses Type 2 diabetes mellitus with unspecified complications E11.8 Hypertension I10
[2024-01-02 11:30] VITALS: BP 168/100; PULSE 99; BMI 33.9
[2024-01-02 11:37] LABS: Glucose, Whole Blood 284 mg/dL (60-115)
== END 2024-01-02 11:59 | disposition home or self-care (01) ==
PROVIDERS: PCP Internal Medicine; Visit Provider Nurse Practitioner Adult Health
DX: E11.8 Type 2 diabetes mellitus with unspecified complications (principal); I10 Essential (primary) hypertension
CPT/HCPCS: 99214; G2211

== ENCOUNTER → 2024-01-02 11:24 | Outpatient (BNVA) | payer OTHER, SELFPAY | PROVIDERS: PCP Internal Medicine; Visit Provider Nurse Practitioner Adult Health | DX: E11.8 Type 2 diabetes mellitus with unspecified complications (principal); I10 Essential (primary) hypertension | CPT/HCPCS: 82947; 99212 ==

== ENCOUNTER 2024-01-15 15:42 | Outpatient (AMB) | payer OTHER, SELFPAY ==
--- NOTE | 2024-01-15 15:44 | HO.NEPHOV ---
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: No Accompanied by: Daughter Allergies Iodinated Contrast Media Allergy (Intermediate, Verified 01/15/24 15:47) Anaphylaxis Medication List - Last Reconciled 01/15/24 by Lupillo Mackay MD acetone (urine) test (Ketone Urine Test strips) As directed prn over 250, nausea, vomiting, illness tid albuterol sulfate 90 mcg/actuation 2 inhalations inhalation Q4-6H PRN albuterol sulfate 0.63 mg (3 mL) inhalation Q4-6H PRN amlodipine 10 mg PO BEDTIME 90 days aspirin 81 mg PO DAILY 90 days atorvastatin 80 mg PO DAILY 90 days blood pressure monitor As directed [blood presure cuff As directed] blood-glucose meter (FreeStyle [place] kit) As directed blood-glucose meter (FreeStyle Lite Meter kit) As directed blood-glucose sensor ([employer] G7 Sensor device) As directed every ten days clopidogrel 75 mg PO DAILY 6 weeks clotrimazole 1% 1 appl topical BID 4 weeks cyclobenzaprine 10 mg PO TID PRN dulaglutide (Trulicity) 1.5 mg (0.5 mL) subcut QWEEK 28 days flash glucose scanning reader (FreeStyle Chiquita 2 [place]) As directed flash glucose sensor (FreeStyle Chiquita 2 Sensor kit) As directed change every 14 days fluticasone propion-salmeterol 115-21 mcg/actuation 2 puffs inhalation BID insulin glargine (Lantus Solostar U-100 Insulin) 32 units (0.32 mL) subcut BID 90 days insulin lispro (Humalog KwikPen (U-100) Insulin) 10-14 units tid before meals subcutaneously 3 times a day; 30 days lisinopril 20 mg PO DAILY 30 days metformin 1,000 mg PO BID metronidazole 500 mg PO BID 7 days nebulizers to use every 4 hours as needed for wheezing pen needle, diabetic (Comfort EZ Pen [place]) As directed injects 4X/day HPI Comments Details: Amy is a pleasant middle-aged woman with a history of longstanding hypertension diabetes mellitus. She has been referred for management of hypertension and proteinuria. Overall blood sugar has been suboptimal. Recent hemoglobin A1c was 11%. She is on multiple anti diabetic medications. As for the hypertension she is on amlodipine 10 mg and lisinopril 20 mg a day. She seems compliant with her medications. However blood pressure has been persistently elevated. Upon reviewing the records she was found to have persistent hypokalemia around 3.1 mg/dL. She had not on any diuretics. Interestingly she says that she does have diarrhea which she attributes to the use of metformin. However going back in the medical record she had hypokalemia back in 2019 and at that time she was not on metformin. She complains of back pain and sometimes radiates to the legs. No urinary symptoms. No palpitation no chest pain no nausea or vomiting. No polyuria polydipsia. History of abnormal EKG and she was well did by Cardiology. It is unclear if this was related to the hypokalemia. [facility] Medical History (Updated 01/02/24 @ 12:12 by Ny Bolton NP) Diabetes mellitus with diabetic nephropathy Hypertension Hypertensive emergency Acute non-ST elevation myocardial infarction (NSTEMI) UTI (urinary tract infection) Anemia Bilateral hand numbness Bilateral hand pain HSV (herpes simplex virus) infection Smoking TIA (transient ischemic attack) DJD (degenerative joint disease) GERD (gastroesophageal reflux disease) Asthma Obesity Diabetes mellitus HTN (hypertension) Surgical History H/O cardiac catheterization Hx of tubal ligation Hx of cholecystectomy Hx of appendectomy Hx of section Family History Mother Heart disease Diabetes Hypertension Hyperlipidemia Fibromyalgia Father No problems noted. Brother No problems noted. Brother No problems noted. Brother No problems noted. Sister Deep vein thrombosis Son No problems noted. Son No problems noted. Daughter Hypertension Daughter No problems noted. Maternal Aunt History of breast cancer Social History Household Members: Family Housing: Apartment Do you presently have visiting nurse or other home services: No Alcohol intake: current Alcohol intake frequency: holidays/special occasions only Patient Tobacco Use Status: Never used Tobacco Tobacco use type: Cigarette Cigarettes Per Day: 3 e-Cigarette/Vaping Use: Never Used Second Hand Smoke Exposure: No service: No Current occupational status: employed Cognitive needs: No Hearing needs: No Vision needs: Yes (glasses) Female Reproductive History Menstrual Age of Menarche: 12 Physical Exam Vital Signs: Last Vital Signs Pulse 97 01/15/24 15:45 BP 194/110 H 01/15/24 15:45 Pulse Ox 98 01/15/24 15:45 Oxygen Delivery Method Room Air 01/15/24 15:45 BMI result Body Mass Index 34.4 Const General: comfortable; No acute distress Nutritional Appearance: obese Orientation/consciousness: patient oriented x3 Eyes General: appearance normal, both eyes and all related structures Visual Benoit: normal visual benoit by confrontation Neck Neck: Yes supple and Yes no JVD Resp Effort & Inspection: normal respiratory effort and respiratory effort not decreased Auscultation: rhonchi Cardio Palpation: no palpable S3 and no palpable S4 Heart sounds: no rubs GI Inspection: Yes normal to inspection Palpation (GI): Soft to palpation Percussion: Yes normal to percussion Auscultation: normal bowel sounds General: Yes no CVA tenderness Back/Spine/Pelvis Back: no CVA tenderness Skin General skin exam: no petechiae and no purpura Neuro General: patient oriented x3 and no focal motor deficits Extrem General: No clubbing and No edema Results Reviewed Nephrology Results: Hgb 11.5 g/dl (12.0-16.0) L 12/28/23 WBC 11.0 X10*3/uL (4.8-10.8) H 12/28/23 Plt Count 282 X10*3/uL (160-400) 12/28/23 Sodium 137 mmol/L (135-145) 12/28/23 Potassium 3.1 mmol/L (3.3-5.1) L 12/28/23 Chloride 101 mmol/L (96-108) 12/28/23 Carbon Dioxide 27 mmol/L (22-29) 12/28/23 BUN 9 mg/dL (9-16) 12/28/23 Creatinine 0.85 mg/dL (0.5-1.4) 12/28/23 Calcium 9.0 mg/dL (8.4-10.2) 12/28/23 Urine Protein 100 (2+) mg/dL (Neg-Trace) H 12/04/23 Urine Creatinine 377.05 mg/dL 12/28/23 Assessment & Plan Assessment & Plan (1) Hypertension: Code(s): I10 - Essential (primary) hypertension Category: Medical (2) Diabetes mellitus with diabetic nephropathy: Code(s): E11.21 - Type 2 diabetes mellitus with diabetic nephropathy Category: Medical (3) Severe sleep apnea: Code(s): G47.30 - Sleep apnea, unspecified Category: Medical (4) Hypokalemia: Code(s): E87.6 - Hypokalemia Category: Medical Plan Amy is a pleasant 43 year woman with resistant hypertension obesity diabetes mellitus and hypokalemia. Given the combination of severe hypertension and hypokalemia we need to rule out hyperaldosteronism. However she could have resistant hypertension due to the combination of obesity and obstructive sleep apnea. Recommendations Hold lisinopril for 2 weeks. Check plasma renin activity and serum aldosterone. While we hold lisinopril I will use clonidine 0.1 mg b.i.d.. Once the blood test is completed we will restart the lisinopril. Blood pressure needs to be optimized. Further workup will depend on the outcome of the above investigation. Encouraged her to stand low-sodium diet She needs to lose weight which I have discussed with the. Sleep apnea needs to be corrected and she should start using CPAP. After baseline workup is completed she returned to office in the next few weeks I will keep you updated Orders: Orders Aldosterone 2 Weeks I10 - Essential (primary) hypertension Aldost/Renin 2 Weeks I10 - Essential (primary) hypertension Basic Metabolic Panel 2 Weeks I10 - Essential (primary) hypertension Osmolality, Serum 2 Weeks I10 - Essential (primary) hypertension Renin 2 Weeks I10 - Essential (primary) hypertension Medications: New clonidine HCl 0.1 mg PO BID 60 tabs 0RF On Hold lisinopril Hold Comment: Doctor's Order 20 mg PO DAILY 30 days 30 tabs 6RF Coding Level of Care Code New Pt Level 5 (96985) Diagnoses Hypertension I10 Diabetes mellitus with diabetic nephropathy E11.21 Severe sleep apnea G47.30 Hypokalemia E87.6
[2024-01-15 15:45] VITALS: BP 194/110; PULSE 97; O2SAT 98; BMI 34.4
== END 2024-01-15 16:12 | disposition home or self-care (01) ==
PROVIDERS: PCP Internal Medicine; Referring Provider Nurse Practitioner Adult Health; Visit Provider Internal Medicine Hypertension Specialist
DX: I1A.0 Resistant hypertension (principal); E11.21 Type 2 diabetes mellitus with diabetic nephropathy; G47.30 Sleep apnea, unspecified; E87.6 Hypokalemia
CPT/HCPCS: 99204

== ENCOUNTER → 2024-01-15 15:42 | Outpatient (BNVA) | payer OTHER, SELFPAY | PROVIDERS: PCP Internal Medicine; Referring Provider Nurse Practitioner Adult Health; Visit Provider Internal Medicine Hypertension Specialist | DX: E11.21 Type 2 diabetes mellitus with diabetic nephropathy (principal); I10 Essential (primary) hypertension; G47.30 Sleep apnea, unspecified; E87.6 Hypokalemia | CPT/HCPCS: 99202 ==

== ENCOUNTER 2024-02-07 10:01 | Outpatient (AMB) | payer OTHER, SELFPAY ==
--- NOTE | 2024-02-07 10:08 | MHC.PC.OV ---
Vital Signs 02/07/24 10:09 Height 5 ft 2 in Weight 190 lb BMI 34.7 BP 172/96 H Blood Pressure Location Lt brachial Position Sitting Pulse 91 Pulse Source Pulse Oximeter Pulse Oximetry (%) 96 Oxygen Delivery Method Room Air Intake Visit Reasons: Annual Physical - TB test requested Intake Note: PT requesting flu shot, Tb test order placed, and xray results for her hand. SHe also needs a new nebulizer because the one she has broke. 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 Required: No Accompanied by: Self / Same As Patient Allergies Iodinated Contrast Media Allergy (Intermediate, Verified 02/07/24 10:11) Anaphylaxis Medication List - Last Reconciled 02/08/24 by Derrek Hollingsworth MD acetone (urine) test (Ketone Urine Test strips) As directed prn over 250, nausea, vomiting, illness tid albuterol sulfate 90 mcg/actuation 2 inhalations inhalation Q4-6H PRN albuterol sulfate 0.63 mg (3 mL) inhalation Q4-6H PRN amlodipine 10 mg PO BEDTIME 90 days aspirin 81 mg PO DAILY 90 days atorvastatin 80 mg PO DAILY 90 days blood pressure monitor As directed [blood presure cuff As directed] blood-glucose meter (FreeStyle [place] kit) As directed blood-glucose meter (FreeStyle Lite Meter kit) As directed blood-glucose sensor ([employer] G7 Sensor device) As directed every ten days clonidine HCl 0.1 mg PO BID clopidogrel 75 mg PO DAILY 6 weeks clotrimazole 1% 1 appl topical BID 4 weeks cyclobenzaprine 10 mg PO TID PRN dulaglutide (Trulicity) 1.5 mg (0.5 mL) subcut QWEEK 28 days flash glucose scanning reader (FreeStyle Chiquita 2 [place]) As directed flash glucose sensor (FreeStyle Chiquita 2 Sensor kit) As directed change every 14 days fluticasone propion-salmeterol 115-21 mcg/actuation 2 puffs inhalation BID insulin glargine (Lantus Solostar U-100 Insulin) 32 units (0.32 mL) subcut BID 90 days insulin lispro (Humalog KwikPen (U-100) Insulin) 10-14 units tid before meals subcutaneously 3 times a day; 30 days lisinopril 20 mg PO DAILY 30 days metformin 1,000 mg PO BID metronidazole 500 mg PO BID 7 days nebulizers to use every 4 hours as needed for wheezing pen needle, diabetic (Comfort EZ Pen [place]) As directed injects 4X/day potassium chloride ER 20 mEq PO DAILY Tobacco use date assessed: 05/18/23 Dental Screening Dental Screen Date: 05/18/23 HPI Annual Physical - TB test requested HPI Details DM asthma hypertension hyperlipidemia on rx; sees endo [facility] Medical History (Updated 02/08/24 @ 09:40 by Derrek Hollingsworth MD) Diabetes mellitus with diabetic nephropathy Hypertension Hypertensive emergency Acute non-ST elevation myocardial infarction (NSTEMI) UTI (urinary tract infection) Anemia Bilateral hand numbness Bilateral hand pain HSV (herpes simplex virus) infection Smoking TIA (transient ischemic attack) DJD (degenerative joint disease) GERD (gastroesophageal reflux disease) Asthma Obesity Diabetes mellitus HTN (hypertension) Surgical History H/O cardiac catheterization Hx of tubal ligation Hx of cholecystectomy Hx of appendectomy Hx of section Family History Mother Heart disease Diabetes Hypertension Hyperlipidemia Fibromyalgia Father No problems noted. Brother No problems noted. Brother No problems noted. Brother No problems noted. Sister Deep vein thrombosis Son No problems noted. Son No problems noted. Daughter Hypertension Daughter No problems noted. Maternal Aunt History of breast cancer Social History Household Members: Family Housing: Apartment Do you presently have visiting nurse or other home services: No Alcohol intake: current Alcohol intake frequency: holidays/special occasions only Patient Tobacco Use Status: Never used Tobacco Tobacco use type: Cigarette Cigarettes Per Day: 3 e-Cigarette/Vaping Use: Never Used Second Hand Smoke Exposure: No service: No Current occupational status: employed Cognitive needs: No Hearing needs: No Vision needs: Yes (glasses) Female Reproductive History Menstrual Age of Menarche: 12 Questionnaire PHQ-9 Over the last 2 weeks, how often have you been bothered by any of the following problems? 2. Feeling down, depressed, or hopeless: several days 4. Feeling tired or having little energy: several days 5. Poor appetite or overeating: several days 6. Feeling bad about yourself - or that you are a failure or have let yourself or your family down: several days 7. Trouble concentrating on things, such as reading the newspaper or watching television: several days 8. Moving or speaking so slowly that other people could have noticed. Or the opposite - being so fidgety or restless that you have been moving around a lot more than usual: several days 9. Thoughts that you would be better off or of hurting yourself in some way: several days Source: Developed by Drs. Willian Nassar, Monique Clark, Aaron Ortega and colleagues, with an educational walter from [employer]. Thrive Questionnaire Date Thrive assessed: 07/26/23 I am a: Patient What is your living situation today?: I choose not to answer this question Within the past 12 months, did the food you bought not last and you didn't have the money to get more?: I choose not to answer this question Within the past 12 months, did you worry whether your food would run out before you got money to buy more?: I choose not to answer this question Do you have trouble paying for medicines?: No Do you have trouble getting transportation to medical appointments?: No Do you have trouble paying your heating and electricity bill?: I choose not to answer this question Do you have trouble taking care of your child, family member or friend?: I choose not to answer this question Do you have trouble with day-to-day activities such as bathing, preparing meals, shopping, managing finances, etc.?: I choose not to answer this question Are you currently unemployed and looking for a job?: Yes Are you interested in more education?: I choose not to answer this question Please select the resources that you would like help with: None Currently or been in a relationship where the following occur: I choose not to answer THRIVE Score: 0 AUDIT C Alcohol Use Questionnaire (AUDIT-C) 1. How often do you have a drink containing alcohol?: Never Total Score: 0 VIKRAM-7 AMB Questionnaire VIKRAM-7 Date VIKRAM - 7 assessed: 11/13/23 Feeling nervous, anxious, or on edge: 1 = Several days Not being able to stop or control worryin = Several days Worrying too much about different things: 1 = Several days Trouble relaxin = Several days Being so restless that it is hard to sit still: 1 = Several days Becoming easily annoyed or irritable: 1 = Several days Feeling afraid as if something awful might happen: 1 = Several days Total VIKRAM-7 score (0-4 normal; 5-9 mild; 10-14 moderate; 15-21 severe): 7 Source: Developed by Drs. Willian Nassar, Monique Clark, Aaron Ortega and colleagues, with an educational walter from [employer]. Review of Systems Const Denies chills, Denies fatigue, Denies headache(s) and Denies weight loss Eyes Denies change in vision, Denies diplopia and Denies eye pain ENT Denies vertigo, Denies dizziness, Denies headache(s) and Denies nasal discharge Card Denies chest pain, Denies rapid heart rate and Denies dyspnea on exertion Resp Denies chest congestion, Denies cough, Denies pain with cough and Denies dyspnea on exertion GI Denies abdominal pain, Denies hematochezia and Denies change in bowel habits Musc Denies myalgias, Denies arthralgias and Denies joint swelling Skin/Breast Denies lesions and Denies unusual bruising Neuro Denies vertigo, Denies dizziness, Denies headache(s) and Denies focal weakness Endo Denies fatigue Physical exam (Primary Care) Vital Signs: Last Vital Signs Pulse 91 02/07/24 10:09 BP 172/96 H 02/07/24 10:09 Pulse Ox 96 02/07/24 10:09 Oxygen Delivery Method Room Air 02/07/24 10:09 BMI result Body Mass Index 34.7 Tobacco/Smoking Status: Tobacco use Status Tobacco use date assessed 05/18/23 02/07/24 10:10 Patient Tobacco Use Status Never used Tobacco 02/07/24 10:10 Tobacco use type Cigarette 02/07/24 10:10 e-Cigarette/Vaping Use Never Used 02/07/24 10:10 Thrive Assessment: Date of Thrive Assessment Date Thrive assessed 07/26/23 02/07/24 10:10 Currently or been in a relationship where the following occur: I choose not to answer Const General: cooperative, healthy appearing and no acute distress Orientation/consciousness: oriented to person, oriented to place and oriented to time HENMT Head: Yes normal to inspection, Yes normocephalic and Yes atraumatic Mouth: Normal oral and palatal mucosa present and tongue normal Throat: Yes posterior oropharynx normal and Yes uvula midline Eyes General: appearance normal, both eyes and all related structures Neck Neck: Yes normal visual inspection, Yes full ROM and Yes no lymphadenopathy Thyroid: Thyroid normal Carotids: normal carotid upstroke Chest Chest palpation & inspection: normal inspection of the chest Resp Effort & Inspection: normal respiratory effort and able to speak in complete sentences Auscultation: clear to auscultation bilaterally Cardio Jugular venous distension: no JVD Palpation: normal PMI Rate: regular rate Rhythm: regular rhythm Heart sounds: S1 normal heart sound present and S2 normal heart sound present GI Inspection: Yes normal to inspection Palpation (GI): Soft to palpation and No hepatosplenomegaly present Auscultation: normal bowel sounds General: Yes no CVA tenderness Back/Spine/Pelvis Back: no CVA tenderness Skin General skin exam: no rashes or lesions noted Neuro General: oriented to person, oriented to place and oriented to time Extrem General: Yes normal to inspection and Yes full ROM Office Procedures Flu Questionnaire Does the patient have a severe egg allergy?: No Does the patient have severe life threatening allergies?: No Does the patient have a fever or illness today?: No Has the patient ever had Guillain-[place] Syndrome?: No Has the patient ever had any past reaction to a flu shot?: No Immunizations Fluarix Triv [id number] (PF) 45 mcg (15 mcg x 3)/0.5 mL IM syringe Performing Provider: Derrek Hollingsworth MD [facility] Administered by: Linda Eagle RN on 02/07/24 10:23 Dose Route Admin Location Dispensed Lot Number Expiration Date [employer] Writer 0.5 mL IM Left Deltoid 0.5 mL [id number] 09/23/24 [id number] [place] VIS Given Date VIS Provided VIS Publication Date 02/07/24 Single Vaccine 20 Eligibility Eligibility Date Funding Source Not [facility] Eligible 02/07/24 Private Coding Level of Care Code Est Pt Prev Care 40-64y(85510) Diagnoses Physical exam Z00.00 Diabetes mellitus with diabetic nephropathy E11.21 Hypertension I10 Asthma J45.909 Hyperlipidemia E78.5 Assessment & Plan Assessment & Plan (1) Physical exam: Code(s): Z00.00 - Encounter for general adult medical examination without abnormal findings Category: Medical Plan: stable; labs and t-spot for work (2) Diabetes mellitus with diabetic nephropathy: Code(s): E11.21 - Type 2 diabetes mellitus with diabetic nephropathy Category: Medical Plan: as per josselin (3) Hypertension: Code(s): I10 - Essential (primary) hypertension Category: Medical Plan: stable; same rx (4) Asthma: Code(s): J45.909 - Unspecified asthma, uncomplicated Category: Medical Plan: stable; same rx (5) Hyperlipidemia: Code(s): E78.5 - Hyperlipidemia, unspecified Category: Medical Plan: stable; same rx Orders: Orders Influenza [id number] Immunization 02/07/24 Z23 - Encounter for immunization T Spot TB 02/07/24 Z11.1 - Encounter for screening for respiratory tuberculosis Medications: Refilled albuterol sulfate 90 mcg/actuation May dispense medication equivalent accepted by patient's insurance 2 inhalations inhalation Q4-6H PRN 1 ea 0RF shortness of breath or wheezing atorvastatin 80 mg PO DAILY 90 tabs 0RF 90 days clonidine HCl 0.1 mg PO BID 180 tabs 1RF clopidogrel 75 mg PO DAILY 42 tabs 0RF 6 weeks metformin 1,000 mg PO BID 60 tabs 8RF dulaglutide (Trulicity) 1.5 mg (0.5 mL) subcut QWEEK 2 mL 11RF 28 days E11.8 - Type 2 diabetes mellitus with unspecified complications insulin glargine (Lantus Solostar U-100 Insulin) 32 units (0.32 mL) subcut BID 60 mL 4RF 90 days E11.8 - Type 2 diabetes mellitus with unspecified complications albuterol sulfate May dispense medication equivalent accepted by patient's insurance 0.63 mg (3 mL) inhalation Q4-6H PRN 90 mL 0RF shortness of breath or wheezing amlodipine 10 mg PO BEDTIME 90 tabs 0RF 90 days aspirin 81 mg PO DAILY 90 tabs 8RF 90 days metronidazole 500 mg PO BID 14 tabs 0RF 7 days insulin lispro (Humalog KwikPen (U-100) Insulin) 10-14 units tid before meals subcutaneously 3 times a day; 15 mL 3RF 42 30 days
[2024-02-07 10:09] VITALS: BP 172/96; PULSE 91; O2SAT 96; BMI 34.7
== END 2024-02-07 10:44 | disposition home or self-care (01) ==
PROVIDERS: PCP Internal Medicine; Visit Provider Internal Medicine
DX: Z00.00 Encounter for general adult medical examination without abnormal findings (principal); E11.21 Type 2 diabetes mellitus with diabetic nephropathy; I10 Essential (primary) hypertension; J45.909 Unspecified asthma, uncomplicated; E78.5 Hyperlipidemia, unspecified

== ENCOUNTER 2024-02-07 10:01 | Outpatient (REF) | payer OTHER, SELFPAY ==
[2024-02-07 13:47] LABS: Osmolality, Serum 293 mosm/kg (281-305)
[2024-02-07 13:54] LABS: Anion Gap 14 (12-20); Blood Urea Nitrogen 9 mg/dL (9-16); Calcium 9.5 mg/dL (8.4-10.2); Carbon Dioxide 23 mmol/L (22-29); Chloride 102 mmol/L (96-108); Estimated Glomerular Filt Rate > 60; Glucose Random 189 mg/dL (60-115); Potassium 2.8 mmol/L (3.3-5.1); Sodium 136 mmol/L (135-145)
[2024-02-10 05:09] LABS: TS Negative Control Passed; TS Panel A 0; TS Panel B 0; TS Positive Control Passed; TSpotTB Negative (Negative)
[2024-02-11 12:38] LABS: Renin 2.49 ng/mL/h (0.25-5.82)
[2024-02-12 14:28] LABS: Plasma Renin Activity 2.35 ng/mL/h (0.25-5.82)
== END 2024-02-07 10:02 | disposition home or self-care (01) ==
LOC: HO.LAB 10:01
PROVIDERS: Absent Provider Internal Medicine Hypertension Specialist; PCP Internal Medicine; Visit Provider Internal Medicine
DX: Z00.00 Encounter for general adult medical examination without abnormal findings (principal); Z11.1 Encounter for screening for respiratory tuberculosis; Z23 Encounter for immunization; I10 Essential (primary) hypertension; E11.21 Type 2 diabetes mellitus with diabetic nephropathy; J45.909 Unspecified asthma, uncomplicated; E78.5 Hyperlipidemia, unspecified
CPT/HCPCS: 36415; 80048; 82088; 83930; 84244; 86481; 90471; 90656; 99396

== ENCOUNTER 2024-02-20 13:27 | Outpatient (AMB) | payer OTHER, SELFPAY ==
--- NOTE | 2024-02-20 13:44 | HO.NEPHOV_ITS ---
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 Accompanied by: Daughter Allergies Iodinated Contrast Media Allergy (Intermediate, Verified 02/20/24 13:47) Anaphylaxis Medication List - Last Reconciled 02/20/24 by Lupillo Mackay MD acetone (urine) test (Ketone Urine Test strips) As directed prn over 250, nausea, vomiting, illness tid albuterol sulfate 90 mcg/actuation 2 inhalations inhalation Q4-6H PRN albuterol sulfate 0.63 mg (3 mL) inhalation Q4-6H PRN amlodipine 10 mg PO BEDTIME 90 days aspirin 81 mg PO DAILY 90 days atorvastatin 80 mg PO DAILY 90 days blood pressure monitor As directed [blood presure cuff As directed] blood-glucose meter (FreeStyle [place] kit) As directed blood-glucose meter (FreeStyle Lite Meter kit) As directed blood-glucose sensor ([employer] G7 Sensor device) As directed every ten days clonidine HCl 0.1 mg PO BID clopidogrel 75 mg PO DAILY 6 weeks clotrimazole 1% 1 appl topical BID 4 weeks cyclobenzaprine 10 mg PO TID PRN dulaglutide (Trulicity) 1.5 mg (0.5 mL) subcut QWEEK 28 days flash glucose scanning reader (FreeStyle Chiquita 2 [place]) As directed flash glucose sensor (FreeStyle Chiquita 2 Sensor kit) As directed change every 14 days fluticasone propion-salmeterol 115-21 mcg/actuation 2 puffs inhalation BID insulin glargine (Lantus Solostar U-100 Insulin) 32 units (0.32 mL) subcut BID 90 days insulin lispro (Humalog KwikPen (U-100) Insulin) 10-14 units tid before meals subcutaneously 3 times a day; 30 days lisinopril 20 mg PO DAILY 30 days metformin 1,000 mg PO BID metronidazole 500 mg PO BID 7 days nebulizers to use every 4 hours as needed for wheezing pen needle, diabetic (Comfort EZ Pen [place]) As directed injects 4X/day potassium chloride ER 20 mEq PO DAILY HPI Comments Details: Amy is a pleasant middle-aged woman with a history of longstanding hypertension diabetes mellitus. She has been referred for management of hypertension and proteinuria. Overall blood sugar has been suboptimal. Recent hemoglobin A1c was 11%. She is on multiple anti diabetic medications. As for the hypertension she is on amlodipine 10 mg and lisinopril 20 mg a day. She seems compliant with her medications. However blood pressure has been persistently elevated. Upon reviewing the records she was found to have persistent hypokalemia around 3.1 mg/dL. She had not on any diuretics. Interestingly she says that she does have diarrhea which she attributes to the use of metformin. However going back in the medical record she had hypokalemia back in 2019 and at that time she was not on metformin. She complains of back pain and sometimes radiates to the legs. No urinary symptoms. No palpitation no chest pain no nausea or vomiting. No polyuria polydipsia. History of abnormal EKG and she was well did by Cardiology. It is unclear if this was related to the hypokalemia. 02/20/2024 Overall doing well. Potassium was low at 2.8 and potassium chloride has been added. [facility] Medical History (Updated 02/08/24 @ 09:40 by Derrek Hollingsworth MD) Diabetes mellitus with diabetic nephropathy Hypertension Hypertensive emergency Acute non-ST elevation myocardial infarction (NSTEMI) UTI (urinary tract infection) Anemia Bilateral hand numbness Bilateral hand pain HSV (herpes simplex virus) infection Smoking TIA (transient ischemic attack) DJD (degenerative joint disease) GERD (gastroesophageal reflux disease) Asthma Obesity Diabetes mellitus HTN (hypertension) Surgical History H/O cardiac catheterization Hx of tubal ligation Hx of cholecystectomy Hx of appendectomy Hx of section Family History Mother Heart disease Diabetes Hypertension Hyperlipidemia Fibromyalgia Father No problems noted. Brother No problems noted. Brother No problems noted. Brother No problems noted. Sister Deep vein thrombosis Son No problems noted. Son No problems noted. Daughter Hypertension Daughter No problems noted. Maternal Aunt History of breast cancer Social History Household Members: Family Housing: Apartment Do you presently have visiting nurse or other home services: No Alcohol intake: current Alcohol intake frequency: holidays/special occasions only Patient Tobacco Use Status: Never used Tobacco Tobacco use type: Cigarette Cigarettes Per Day: 3 e-Cigarette/Vaping Use: Never Used Second Hand Smoke Exposure: No service: No Current occupational status: employed Cognitive needs: No Hearing needs: No Vision needs: Yes (glasses) Female Reproductive History Menstrual Age of Menarche: 12 Physical Exam Vital Signs: Last Vital Signs Pulse 108 H 02/20/24 13:45 BP 184/104 H 02/20/24 13:45 Pulse Ox 97 02/20/24 13:45 Oxygen Delivery Method Room Air 02/20/24 13:45 BMI result Body Mass Index 34.9 Results Reviewed Nephrology Results: Hgb 11.5 g/dl (12.0-16.0) L 12/28/23 WBC 11.0 X10*3/uL (4.8-10.8) H 12/28/23 Plt Count 282 X10*3/uL (160-400) 12/28/23 Sodium 136 mmol/L (135-145) 02/07/24 Potassium 2.8 mmol/L (3.3-5.1) L* 02/07/24 Chloride 102 mmol/L (96-108) 02/07/24 Carbon Dioxide 23 mmol/L (22-29) 02/07/24 BUN 9 mg/dL (9-16) 02/07/24 Creatinine 0.81 mg/dL (0.5-1.4) 02/07/24 Calcium 9.5 mg/dL (8.4-10.2) 02/07/24 Urine Creatinine 377.05 mg/dL 12/28/23 Assessment & Plan Assessment & Plan (1) Hypertension: Code(s): I10 - Essential (primary) hypertension Category: Medical (2) Diabetes mellitus with diabetic nephropathy: Code(s): E11.21 - Type 2 diabetes mellitus with diabetic nephropathy Category: Medical (3) Severe sleep apnea: Code(s): G47.30 - Sleep apnea, unspecified Category: Medical (4) Hypokalemia: Code(s): E87.6 - Hypokalemia Category: Medical Plan Amy is a pleasant 43 year woman with resistant hypertension obesity diabetes mellitus and hypokalemia. Given the combination of severe hypertension and hypokalemia we need to rule out hyperaldosteronism. Recent plasma renin activity and serum aldosterone levels were not suggestive of hyperaldosteronism. However she could have resistant hypertension due to the combination of obesity and obstructive sleep apnea. Recommendations Restart lisinopril for Discontinue clonidine 0.1 mg b.i.d.. Add spironolactone 25 mg q.d. Encouraged her to stand low-sodium diet She needs to lose weight which I have discussed with the. Sleep apnea needs to be corrected and she should start using CPAP. Orders: Orders Basic Metabolic Panel Today Lupillo Mackay MD I10 - Essential (primary) hypertension Medications: New spironolactone 25 mg PO DAILY 90 tabs 0RF Lupillo Mackay MD Resumed lisinopril 20 mg PO DAILY 30 days 30 tabs 6RF [place] NP Coding Level of Care Code Est Pt Level 4 (42502) Diagnoses Hypertension I10 Diabetes mellitus with diabetic nephropathy E11.21 Severe sleep apnea G47.30 Hypokalemia E87.6
[2024-02-20 13:45] VITALS: BP 184/104; PULSE 108; O2SAT 97; BMI 34.9
== END 2024-02-20 14:59 | disposition home or self-care (01) ==
PROVIDERS: PCP Internal Medicine; Visit Provider Internal Medicine Hypertension Specialist
DX: I10 Essential (primary) hypertension (principal); E11.21 Type 2 diabetes mellitus with diabetic nephropathy; G47.30 Sleep apnea, unspecified; E87.6 Hypokalemia
CPT/HCPCS: 99214

== ENCOUNTER → 2024-02-20 13:27 | Outpatient (BNVA) | payer OTHER, SELFPAY | PROVIDERS: PCP Internal Medicine; Visit Provider Internal Medicine Hypertension Specialist | DX: E11.21 Type 2 diabetes mellitus with diabetic nephropathy (principal); I10 Essential (primary) hypertension; R80.9 Proteinuria, unspecified; G47.30 Sleep apnea, unspecified; E87.6 Hypokalemia; E66.9 Obesity, unspecified; G47.33 Obstructive sleep apnea (adult) (pediatric); Z99.89 Dependence on other enabling machines and devices; Z68.34 Body mass index [BMI] 34.0-34.9, adult | CPT/HCPCS: 99212 ==

== ENCOUNTER 2024-03-26 12:46 | Outpatient (REF) | payer OTHER, SELFPAY ==
[2024-03-26 13:32] LABS: Anion Gap 9 (12-20); Blood Urea Nitrogen 11 mg/dL (9-16); Calcium 9.1 mg/dL (8.4-10.2); Carbon Dioxide 26 mmol/L (22-29); Chloride 104 mmol/L (96-108); Estimated Glomerular Filt Rate > 60; Glucose Random 220 mg/dL (60-115); Potassium 3.2 mmol/L (3.3-5.1); Sodium 136 mmol/L (135-145)
== END 2024-03-26 12:47 | disposition home or self-care (01) ==
LOC: HO.LAB 12:46
PROVIDERS: PCP Internal Medicine; Visit Provider Internal Medicine Hypertension Specialist
DX: I10 Essential (primary) hypertension (principal)
CPT/HCPCS: 36415; 80048

== ENCOUNTER 2024-03-28 13:49 | Outpatient (AMB) | payer OTHER, SELFPAY ==
[2024-03-28 13:53] VITALS: BP 190/102; PULSE 100; O2SAT 98; BMI 34.2
--- NOTE | 2024-03-28 13:53 | HO.NEPHOV ---
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 Accompanied by: Self / Same As Patient Allergies Iodinated Contrast Media Allergy (Intermediate, Verified 03/28/24 13:56) Anaphylaxis Medication List - Last Reconciled 03/28/24 by Lupillo Mackay MD acetone (urine) test (Ketone Urine Test strips) As directed prn over 250, nausea, vomiting, illness tid albuterol sulfate 90 mcg/actuation 2 inhalations inhalation Q4-6H PRN albuterol sulfate 0.63 mg (3 mL) inhalation Q4-6H PRN amlodipine 10 mg PO BEDTIME 90 days aspirin 81 mg PO DAILY 90 days atorvastatin 80 mg PO DAILY 90 days blood pressure monitor As directed [blood presure cuff As directed] blood-glucose meter (FreeStyle [place] kit) As directed blood-glucose meter (FreeStyle Lite Meter kit) As directed blood-glucose sensor ([email or web address] G7 Sensor device) As directed every ten days clopidogrel 75 mg PO DAILY 6 weeks clotrimazole 1% 1 appl topical BID 4 weeks cyclobenzaprine 10 mg PO TID PRN dulaglutide (Trulicity) 1.5 mg (0.5 mL) subcut QWEEK 28 days flash glucose scanning reader (FreeStyle Chiquita 2 [place]) As directed flash glucose sensor (FreeStyle Chiquita 2 Sensor kit) As directed change every 14 days fluticasone propion-salmeterol 115-21 mcg/actuation 2 puffs inhalation BID insulin glargine (Lantus Solostar U-100 Insulin) 32 units (0.32 mL) subcut BID 90 days insulin lispro (Humalog KwikPen (U-100) Insulin) 10-14 units tid before meals subcutaneously 3 times a day; 30 days lisinopril 20 mg PO DAILY 30 days metformin 1,000 mg PO BID metronidazole 500 mg PO BID 7 days nebulizers to use every 4 hours as needed for wheezing pen needle, diabetic (Comfort EZ Pen [place]) As directed injects 4X/day potassium chloride ER 20 mEq PO DAILY spironolactone 25 mg PO DAILY HPI Comments Details: Amy is a pleasant middle-aged woman with a history of longstanding hypertension diabetes mellitus. She has been referred for management of hypertension and proteinuria. Overall blood sugar has been suboptimal. Recent hemoglobin A1c was 11%. She is on multiple anti diabetic medications. As for the hypertension she is on amlodipine 10 mg and lisinopril 20 mg a day. She seems compliant with her medications. However blood pressure has been persistently elevated. Upon reviewing the records she was found to have persistent hypokalemia around 3.1 mg/dL. She had not on any diuretics. Interestingly she says that she does have diarrhea which she attributes to the use of metformin. However going back in the medical record she had hypokalemia back in 2019 and at that time she was not on metformin. She complains of back pain and sometimes radiates to the legs. No urinary symptoms. No palpitation no chest pain no nausea or vomiting. No polyuria polydipsia. History of abnormal EKG and she was well did by Cardiology. It is unclear if this was related to the hypokalemia. 02/20/2024 Overall doing well. Potassium was low at 2.8 and potassium chloride has been added. 03/28/24 Tolerating Spironolactone BP still elevated [facility] Medical History (Updated 02/08/24 @ 09:40 by Derrek Hollingsworth MD) Diabetes mellitus with diabetic nephropathy Hypertension Hypertensive emergency Acute non-ST elevation myocardial infarction (NSTEMI) UTI (urinary tract infection) Anemia Bilateral hand numbness Bilateral hand pain HSV (herpes simplex virus) infection Smoking TIA (transient ischemic attack) DJD (degenerative joint disease) GERD (gastroesophageal reflux disease) Asthma Obesity Diabetes mellitus HTN (hypertension) Surgical History H/O cardiac catheterization Hx of tubal ligation Hx of cholecystectomy Hx of appendectomy Hx of section Family History Mother Heart disease Diabetes Hypertension Hyperlipidemia Fibromyalgia Father No problems noted. Brother No problems noted. Brother No problems noted. Brother No problems noted. Sister Deep vein thrombosis Son No problems noted. Son No problems noted. Daughter Hypertension Daughter No problems noted. Maternal Aunt History of breast cancer Social History Household Members: Family Housing: Apartment Do you presently have visiting nurse or other home services: No Alcohol intake: current Alcohol intake frequency: holidays/special occasions only Patient Tobacco Use Status: Never used Tobacco Tobacco use type: Cigarette Cigarettes Per Day: 3 e-Cigarette/Vaping Use: Never Used Second Hand Smoke Exposure: No service: No Current occupational status: employed Cognitive needs: No Hearing needs: No Vision needs: Yes (glasses) Female Reproductive History Menstrual Age of Menarche: 12 Physical Exam Vital Signs: Last Vital Signs Pulse 100 03/28/24 13:53 BP 190/102 H 03/28/24 13:53 Pulse Ox 98 03/28/24 13:53 Oxygen Delivery Method Room Air 03/28/24 13:53 BMI result Body Mass Index 34.2 Results Reviewed Nephrology Results: Sodium 136 mmol/L (135-145) 03/26/24 Potassium 3.2 mmol/L (3.3-5.1) L 03/26/24 Chloride 104 mmol/L (96-108) 03/26/24 Carbon Dioxide 26 mmol/L (22-29) 03/26/24 BUN 11 mg/dL (9-16) 03/26/24 Creatinine 0.87 mg/dL (0.5-1.4) 03/26/24 Calcium 9.1 mg/dL (8.4-10.2) 03/26/24 Assessment & Plan Assessment & Plan (1) Hypertension: Code(s): I10 - Essential (primary) hypertension Category: Medical (2) Diabetes mellitus with diabetic nephropathy: Code(s): E11.21 - Type 2 diabetes mellitus with diabetic nephropathy Category: Medical (3) Severe sleep apnea: Code(s): G47.30 - Sleep apnea, unspecified Category: Medical (4) Hypokalemia: Code(s): E87.6 - Hypokalemia Category: Medical Plan Amy is a pleasant 43 year woman with resistant hypertension obesity diabetes mellitus and hypokalemia. Given the combination of severe hypertension and hypokalemia we need to rule out hyperaldosteronism. Recent plasma renin activity and serum aldosterone levels were not suggestive of hyperaldosteronism. However she could have resistant hypertension due to the combination of obesity and obstructive sleep apnea. Recommendations Restart lisinopril INCREASE spironolactone 50 mg BID 20 mg QD Encouraged her to stand low-sodium diet She needs to lose weight which I have discussed with the. Sleep apnea needs to be corrected and she should start using CPAP. Orders: Orders Basic Metabolic Panel 3 Weeks I10 - Essential (primary) hypertension Medications: Changed From spironolactone 25 mg PO DAILY 90 tabs 0RF To spironolactone 50 mg PO BID 180 tabs 1RF Coding Level of Care Code Est Pt Level 4 (15275) Diagnoses Hypertension I10 Diabetes mellitus with diabetic nephropathy E11.21 Severe sleep apnea G47.30 Hypokalemia E87.6
== END 2024-03-28 14:21 | disposition home or self-care (01) ==
PROVIDERS: PCP Internal Medicine; Visit Provider Internal Medicine Hypertension Specialist
DX: I10 Essential (primary) hypertension (principal); E11.21 Type 2 diabetes mellitus with diabetic nephropathy; G47.30 Sleep apnea, unspecified; E87.6 Hypokalemia
CPT/HCPCS: 99214

== ENCOUNTER → 2024-03-28 13:49 | Outpatient (BNVA) | payer OTHER, SELFPAY | PROVIDERS: PCP Internal Medicine; Visit Provider Internal Medicine Hypertension Specialist | DX: I10 Essential (primary) hypertension (principal); R80.9 Proteinuria, unspecified; E11.21 Type 2 diabetes mellitus with diabetic nephropathy; G47.30 Sleep apnea, unspecified; E87.6 Hypokalemia | CPT/HCPCS: 99212 ==

== ENCOUNTER 2024-06-10 13:11 | Emergency (ER) | payer OTHER, SELFPAY ==
--- NOTE | ~2024-06-10 | XR_ITS ---
EXAMINATION: XR FOOT 3 OR MORE VIEWS LEFT, XR ANKLE 1-2 VIEWS LEFT HISTORY: rack fell onto foot, dorsal ecchymosis COMPARISON: There are no prior studies available for comparison. FINDINGS: Six views of the left foot and ankle are submitted. Osseous mineralization is normal. There is no fracture or dislocation. The joint spaces are preserved. The soft tissues are unremarkable. XR/XR foot LT min 3V IMPRESSION: Unremarkable examination of the left foot and ankle. Electronically signed by: Willian Stephens MD 06/10/2024 02:15 PM EDT
--- NOTE | ~2024-06-10 | XR_ITS ---
EXAMINATION: XR TIBIA AND FIBULA, RIGHT CLINICAL INFORMATION: rack fell onto lopez at work COMPARISON: None available. TECHNIQUE: AP and lateral views of the right tibia and fibula were obtained. FINDINGS: No acute cortical disruption. No metallic or radiopaque foreign body. No lytic or blastic lesions. XR/XR tibia fibula RT 2V IMPRESSION: No acute fracture. Electronically signed by: Bacilio Garcia MD 06/10/2024 02:12 PM EDT
--- NOTE | ~2024-06-10 | XR_ITS ---
EXAMINATION: XR TIBIA FIBULA 2 VIEWS LEFT HISTORY: rack fell onto lopez at work COMPARISON: There are no prior studies available for comparison. FINDINGS: AP and lateral views of the left tibia and fibula are submitted. Osseous mineralization is normal. There is no fracture or dislocation. The visualized knee and ankle joint spaces are preserved. The soft tissues are unremarkable. XR/XR tibia fibula LT 2V IMPRESSION: Unremarkable examination of the left tibia and fibula. Electronically signed by: Willian Stephens MD 06/10/2024 02:16 PM EDT
--- NOTE | ~2024-06-10 | XR_ITS ---
EXAMINATION: XR ANKLE, RIGHT CLINICAL INFORMATION: rack fell anterior ankle at work COMPARISON: Correlated to calcaneus x-ray dated January 09, 2019. TECHNIQUE: AP, lateral, and mortise views of the right ankle. FINDINGS: No acute cortical disruption or malalignment. No lytic or blastic lesions. Spur plantar calcaneus. Small exostosis at the Achilles tendon insertion. No joint effusion. XR/XR ankle RT 2V IMPRESSION: No acute fracture or dislocation. Enthesopathy, Achilles tendon. Plantar calcaneal spur. Electronically signed by: Bacilio Garcia MD 06/10/2024 02:13 PM EDT
--- NOTE | ~2024-06-10 | XR_ITS ---
EXAMINATION: XR FOOT, RIGHT CLINICAL INFORMATION: rack fell onto foot, dorsal ecchymosis COMPARISON: None available. TECHNIQUE: AP, lateral, and oblique views of the right foot. FINDINGS: Metatarsals are intact. Phalanges are intact with normal alignment. Tarsal bones and calcaneus and tarsal are intact. Exostosis at the Achilles tendon insertion. STIR, plantar cuneus. No metallic or radiopaque foreign body. No subcutaneous edema. No gross joint effusion. XR/XR foot RT min 3V IMPRESSION: No acute fracture or dislocation. Electronically signed by: Bacilio Garcia MD 06/10/2024 02:15 PM EDT
--- NOTE | ~2024-06-10 | XR_ITS ---
EXAMINATION: XR FOOT 3 OR MORE VIEWS LEFT, XR ANKLE 1-2 VIEWS LEFT HISTORY: rack fell onto foot, dorsal ecchymosis COMPARISON: There are no prior studies available for comparison. FINDINGS: Six views of the left foot and ankle are submitted. Osseous mineralization is normal. There is no fracture or dislocation. The joint spaces are preserved. The soft tissues are unremarkable. XR/XR ankle LT 2V IMPRESSION: Unremarkable examination of the left foot and ankle. Electronically signed by: Willian Stephens MD 06/10/2024 02:15 PM EDT
[2024-06-10 13:41] VITALS: BP 191/107; PULSE 97; RESP 18; TEMP 36.6; O2SAT 98; BMI 36.0
--- NOTE | 2024-06-10 13:46 | ED_ITS ---
HPI - General Adult General Chief complaint: Extremity Injury, Lower Stated complaint: leg pain - 06/08 work inj Time Seen by Provider: 06/10/24 16:10 Source: patient, RN notes reviewed and old records reviewed Mode of arrival: ambulatory Limitations: no limitations History of Present Illness ED Provider: Albert HPI narrative: Patient is a 43-year-old female with history of asthma, DM, HTN, HLD, CVA, asthma, GERD presenting to the emergency department with complaint of bilateral lopez, ankle and dorsal foot pain. States that she was working at [employer] when a large clothing rack fell forward onto her lower legs and feet. This occurred on Monday. She has had ongoing pain as well as bruising to both feet since that time. No difficulty with ambulation. Blood pressure elevated in triage, patient states that she has been taking her blood pressure medication as prescribed. Denies headache, vision changes, chest pain, shortness of breath, dizziness or lightheadedness. MD complaint: Leg pain Onset (ago): day(s) Related Data Previous Rx's ?Medication ?Instructions ?Recorded blood-glucose meter (FreeStyle #1 ea 09/05/20 [place] kit) nebulizers #1 ea 06/17/21 blood pressure monitor #1 ea 11/22/22 pen needle, diabetic 32 gauge x #100 ea 02/02/2308/09 (Comfort EZ Pen [place]) flash glucose scanning reader #1 ea 02/05/23 (FreeStyle [place] 2 [place]) fluticasone propionate 115 2 puff inhalation BID #12 grams 05/18/23 mcg-salmeterol 21 mcg/actuation HFA inhaler flash glucose sensor (FreeStyle #2 ea 09/25/23 Chiquita 2 Sensor kit) blood-glucose sensor (Dexcom G7 #3 ea 10/24/23 Sensor device) cyclobenzaprine 10 mg tablet 10 mg PO TID PRN muscle spasm #90 11/13/23 tabs acetone (urine) test (Ketone Urine #50 ea 12/08/23 Test strips) blood-glucose meter (FreeStyle #1 ea 12/08/23 Lite Meter kit) clotrimazole 1 % topical cream 1 appl topical BID 4 weeks #30 12/08/23 grams blood presure cuff #1 ea 01/02/24 lisinopril 20 mg tablet 20 mg PO DAILY 30 days #30 tabs 01/02/24 albuterol sulfate 0.63 mg/3 mL 0.63 mg (3 mL) inhalation Q4-6H 02/07/24 solution for nebulization PRN shortness of breath or wheezing #90 mL albuterol sulfate 90 mcg/actuation 2 inh inhalation Q4-6H PRN 02/07/24 breath activated powder shortness of breath or wheezing #1 inhaler,sensor ea amlodipine 10 mg tablet 10 mg PO BEDTIME 90 days #90 tabs 02/07/24 aspirin 81 mg tablet,delayed 81 mg PO DAILY 90 days #90 tabs 02/07/24 release atorvastatin 80 mg tablet 80 mg PO DAILY 90 days #90 tabs 02/07/24 clopidogrel 75 mg tablet 75 mg PO DAILY 6 weeks #42 tabs 02/07/24 dulaglutide 1.5 mg/0.5 mL 1.5 mg (0.5 mL) subcut QWEEK 28 02/07/24 subcutaneous pen injector days #2 mL (Trulicity) insulin lispro 100 unit/mL See Rx Instructions subcut TID 42 02/07/24 subcutaneous pen (Humalog KwikPen 30 days #15 mL (U-100) Insulin) metronidazole 500 mg tablet 500 mg PO BID 7 days #14 tabs 02/07/24 potassium chloride 20 mEq 20 meq PO DAILY #14 tabs 02/07/24 tablet,extended release metformin 1,000 mg tablet 1,000 mg PO BID #180 tabs 02/24/24 spironolactone 50 mg tablet 50 mg PO BID #180 tabs 03/28/24 insulin glargine 100 unit/mL (3 32 unit (0.32 mL) subcut BID 90 05/22/24 mL) subcutaneous pen (Lantus days #60 mL Solostar U-100 Insulin) diclofenac sodium 1 % topical gel 2 g topical QID #100 grams 06/10/24 Allergies Allergy/AdvReac Type Severity Reaction Status Date / Time Iodinated Contrast Media Allergy Intermediate Anaphylaxis Verified 06/10/24 13:42 Review of Systems Review of Systems: as per HPI Yes all other systems are reviewed and are negative Constitutional: Constitutional: Reports as per HPI [facility] Past Medical History Medical History (Updated 06/10/24 @ 16:23 by Sigrid Albert, MEDICARE NURSE) Diabetes mellitus with diabetic nephropathy Hypertension Hypertensive emergency Acute non-ST elevation myocardial infarction (NSTEMI) UTI (urinary tract infection) Anemia Bilateral hand numbness Bilateral hand pain HSV (herpes simplex virus) infection Smoking TIA (transient ischemic attack) DJD (degenerative joint disease) GERD (gastroesophageal reflux disease) Asthma Obesity Diabetes mellitus HTN (hypertension) Surgical History H/O cardiac catheterization Hx of tubal ligation Hx of cholecystectomy Hx of appendectomy Hx of section Family History Family History Mother Heart disease Diabetes Hypertension Hyperlipidemia Fibromyalgia Father No problems noted. Brother No problems noted. Brother No problems noted. Brother No problems noted. Sister Deep vein thrombosis Son No problems noted. Son No problems noted. Daughter Hypertension Daughter No problems noted. Maternal Aunt History of breast cancer Social History Social History Household Members: Family Housing: Apartment Do you presently have visiting nurse or other home services: No Alcohol intake: current Alcohol intake frequency: holidays/special occasions only Patient Tobacco Use Status: Never used Tobacco Tobacco use type: Cigarette Cigarettes Per Day: 3 e-Cigarette/Vaping Use: Never Used Second Hand Smoke Exposure: No Advance Directives: No Advance Directives Information Provided: No Do you have a plan to hurt others: No Plan service: No Current occupational status: employed Cognitive needs: No Hearing needs: No Vision needs: Yes (glasses) Physical Exam ED Vital Signs: Vital Signs - 24 hr 06/10/24 13:41 06/10/24 16:10 06/10/24 16:19 Temperature 97.9 F 97.8 F 97.8 F Pulse Rate 97 98 98 Respiratory Rate 18 16 16 Blood Pressure 191/107 H 179/103 H 179/103 H Pulse Oximetry 98 98 98 Oxygen Delivery Method Room Air Room Air Room Air BMI result Body Mass Index 36.0 Vital signs have been reviewed and appear to be correct. Blood pressure elevated. Heart rate normal. Respiratory rate normal. Temperature normal. Oxygen saturation normal. Const General: cooperative, healthy appearing and no acute distress Orientation/consciousness: oriented to person, oriented to place, oriented to time and patient oriented x3 Limitations: no limitations HENMT Head: Yes normocephalic and Yes atraumatic Ears: external ears normal General nose exam: Normal external nose present Face and sinus: Yes face symmetric Mouth: oropharynx normal and moist mucous membranes Throat: Yes uvula midline Eyes Pupils: Equal, round and reactive pupils present Neck Neck: Yes normal visual inspection and Yes supple Resp Effort & Inspection: normal respiratory effort and able to speak in complete sentences Auscultation: clear to auscultation bilaterally Cardio Rate: regular rate Rhythm: regular rhythm Heart sounds: S1 normal heart sound present and S2 normal heart sound present GI Palpation (GI): Soft to palpation and nontender Auscultation: normoactive bowel sounds General: Yes no CVA tenderness Back/Spine/Pelvis Back: no CVA tenderness Skin General skin exam: elasticity normal and turgor normal Neuro General: oriented to person, oriented to place, oriented to time, patient oriented x3, moves all extremities, no focal motor deficits and CN's II-XI intact bilaterally Cranial nerves: Yes Equal, round and reactive pupils present Cognition (Neuro): normal cognition Extrem General: Yes full ROM, Yes no pedal edema and Yes no calf tenderness Right lower extremity: lower leg Details: normal to inspection and tenderness Location: of the midshaft tibia, ankle Details: normal to inspection and tenderness Location: anteriorly; no ecchymosis and foot Details: normal capillary refill, tenderness Location: of the dorsal foot, toes with normal ROM, ecchymosis (healing ecchymosis) dorsal and vascular exam Details: dorsalis pedis pulse present, posterior tibial pulse present and normal capillary refill Left lower extremity: lower leg Details: normal to inspection and tenderness Location: of the midshaft tibia, ankle Details: normal to inspection and tenderness Location: anteriorly; no ecchymosis and foot Details: normal capillary refill, tenderness Location: of the dorsal foot, toes with normal ROM, ecchymosis (healing ecchymosis) dorsal and vascular exam Details: dorsalis pedis pulse present, posterior tibial pulse present and normal capillary refill Psych Mental Status: mental status grossly normal Affect: normal affect Thought process: Normal thought process present Course Course Course Narrative: This is a rapid medical exam performed by Naveed Price NP: Additional HPI, ROS, PE not included below will be deferred to primary provider. Patient is a 43-year-old female presenting to the emergency department with complaint of bilateral lopez, ankle, and dorsal foot pain. States that a clothing rack fell on her at work on Monday, pain and bruising since. Plan: X-rays Medical Decision Making Medical Decision Making [facility] Narrative: Patient is a 43-year-old female with history of asthma, DM, HTN, HLD, CVA, asthma, GERD presenting to the emergency department with complaint of bilateral lopez, ankle and dorsal foot pain. On exam patient is awake, A+Ox3, VS WNL, afebrile, normal neurological exam without focal deficits, physical exam findin gs as above. Given reported symptoms and physical exam findings, initial differential includes but is not limited to contusions versus fractures. X-rays bilateral tibia, ankle, feet notable for no acute fractures. My interpretation is in agreement with the radiologist's interpretation. Patient updated on results and all questions answered. Follow up with PCP as needed as well as [facility]. Return precautions discussed. Will send prescription for diclofenac gel for affected areas. Patient verbalized understanding of and agreement with plan. Differential Diagnosis Differential Diagnoses: The differential diagnosis associated with the presentation includes As per [facility] Independent Interpretation I performed an independent interpretation of an: Plain X-Ray Interpretation: X-rays bilateral tibia, ankle, feet notable for no acute fractures. Radiology Impression Discussion of test interpretation with radiology: I have reviewed the radiologist's reading. Radiologist Impression: XR/XR ankle LT 2V IMPRESSION: Unremarkable examination of the left foot and ankle. XR/XR ankle RT 2V IMPRESSION: No acute fracture or dislocation. Enthesopathy, Achilles tendon. Plantar calcaneal spur. XR/XR foot LT min 3V IMPRESSION: Unremarkable examination of the left foot and ankle. XR/XR foot RT min 3V IMPRESSION: No acute fracture or dislocation. XR/XR tibia fibula LT 2V IMPRESSION: Unremarkable examination of the left tibia and fibula. XR/XR tibia fibula RT 2V IMPRESSION: No acute fracture. External Record Review External record reviewed: Inpatient record, Office record and Outpatient record Prescription Management I considered prescription management with: Pain Medication Discharge Plan Discharge Clinical Impression: Contusion of left lower leg, Contusion of right lower leg, Hypertension Patient Disposition: Home, Self-Care Instructions: Contusion in Adults (ED) Additional Instructions: You were evaluated in the emergency department today for a workplace injury. Your x-rays did not show any evidence of fractures. Your pain is due to contusions. We are prescribing a topical gel for pain, use this as prescribed. You can apply ice to the affected areas for 10-15 minutes at a time several times daily, using caution not to apply ice directly to the skin. Follow up with your primary care provider as needed. Return to the emergency department if you develop worsening pain, change of color in your legs, new weakness, numbness, tingling or any other new or concerning symptoms. You can follow-up with [facility] as needed. Your blood pressure was very elevated today, please schedule a follow up appointment with your PCP this week for a recheck. [facility] [address] [place] [address] Prescriptions: New diclofenac sodium 1 % gel 2 g topical QID Qty: 100 0RF No Action (DME) nebulizers [facility] See Rx Instructions .Route Qty: 1 0RF Rx Instructions: to use every 4 hours as needed for wheezing (DME) blood pressure monitor Kit See Rx Instructions .Route Qty: 1 0RF Rx Instructions: As directed (DME) pen needle, diabetic [Comfort EZ Pen [place]] 32 gauge x 5/16 needle See Rx Instructions .Route Qty: 100 4RF Rx Instructions: As directed injects 4X/day (DME) FreeStyle Chiquita 2 [place] Misc See Rx Instructions .Route Qty: 1 0RF Rx Instructions: As directed (DME) Dexcom G7 Sensor Device See Rx Instructions .ROUTE .MEDSUPPLY Qty: 3 11RF Rx Instructions: As directed every ten days potassium chloride 20 mEq tablet extended release 20 meq PO DAILY Qty: 14 0RF metformin 1,000 mg tablet 1,000 mg PO BID Qty: 180 2RF insulin glargine [Lantus Solostar U-100 Insulin] 100 unit/mL (3 mL) insulin pen 32 unit subcut BID 90 Days Qty: 60 4RF (DME) blood-glucose meter [FreeStyle [place]] Kit See Rx Instructions .ROUTE .MEDSUPPLY Qty: 1 0RF Rx Instructions: As directed fluticasone propion-salmeterol 115-21 mcg/actuation HFA aerosol inhaler 2 puff inhalation BID Qty: 12 5RF cyclobenzaprine 10 mg tablet 10 mg PO TID PRN (Reason: muscle spasm) Qty: 90 3RF (DME) FreeStyle Chiquita 2 Sensor Kit See Rx Instructions .Route Qty: 2 4RF Rx Instructions: As directed change every 14 days albuterol sulfate 0.63 mg/3 mL solution for nebulization 0.63 mg inhalation Q4-6H PRN (Reason: shortness of breath or wheezing) Qty: 90 0RF Rx Instructions: May dispense medication equivalent accepted by patient's insurance albuterol sulfate 90 mcg/actuation aero powdr breath act w/sensor 2 inh inhalation Q4-6H PRN (Reason: shortness of breath or wheezing) Qty: 1 0RF Rx Instructions: May dispense medication equivalent accepted by patient's insurance amlodipine 10 mg tablet 10 mg PO BEDTIME 90 Days Qty: 90 0RF aspirin 81 mg tablet,delayed release (DR/EC) 81 mg PO DAILY 90 Days Qty: 90 8RF atorvastatin 80 mg tablet 80 mg PO DAILY 90 Days Qty: 90 0RF clopidogrel 75 mg tablet 75 mg PO DAILY 42 Days Qty: 42 0RF metronidazole 500 mg tablet 500 mg PO BID 7 Days Qty: 14 0RF Trulicity 1.5 mg/0.5 mL pen injector 1.5 mg subcut QWEEK 28 Days Qty: 2 11RF insulin lispro [Humalog KwikPen Insulin] 100 unit/mL insulin pen See Rx Instructions subcut TID 30 Days Qty: 15 3RF Rx Instructions: 10-14 units tid before meals subcutaneously 3 times a day; spironolactone 50 mg tablet 50 mg PO BID Qty: 180 1RF (DME) Ketone Urine Test Strip See Rx Instructions .ROUTE .MEDSUPPLY Qty: 50 1RF Rx Instructions: As directed prn over 250, nausea, vomiting, illness tid clotrimazole 1 % cream 1 appl topical BID 28 Days Qty: 30 1RF Rx Instructions: apply between 4th and 5th toe right and left foot (DME) blood-glucose meter [FreeStyle Lite Meter] Kit See Rx Instructions .Route Qty: 1 0RF Rx Instructions: As directed lisinopril 20 mg tablet 20 mg PO DAILY 30 Days Qty: 30 6RF (DME) blood presure cuff large See Rx Instructions .Route .MEDSUPPLY Qty: 1 0RF Rx Instructions: As directed Stand Alone Forms: Work/School Release Interventions: ED Discharge Assessment Last Done: 06/10/24 16:19 Discharge Date/Time: 06/10/24 16:28 Print Language: Turkish
[2024-06-10 16:10] VITALS: BP 179/103; PULSE 98; RESP 16; TEMP 36.6; O2SAT 98
[2024-06-10 16:19] VITALS: BP 179/103; PULSE 98; RESP 16; TEMP 36.6; O2SAT 98
== END 2024-06-10 16:28 | disposition home or self-care (01) ==
LOC: HO.ED 16:21
PROVIDERS: Emergency Provider Emergency Medicine; PCP Internal Medicine
DX: S80.12XA Contusion of left lower leg, initial encounter (principal); S80.11XA Contusion of right lower leg, initial encounter; M25.572 Pain in left ankle and joints of left foot; E11.9 Type 2 diabetes mellitus without complications; I10 Essential (primary) hypertension; Y29.XXXA Contact with blunt object, undetermined intent, initial encounter; Y93.9 Activity, unspecified; Y92.9 Unspecified place or not applicable; Y99.0 Civilian activity done for income or pay; Z79.899 Other long term (current) drug therapy; Z79.4 Long term (current) use of insulin
CPT/HCPCS: 73590; 73600; 73630; 99282; 99283

== ENCOUNTER → 2024-06-10 13:44 | Outpatient (BNV) | payer OTHER, SELFPAY | PROVIDERS: PCP Internal Medicine; Visit Provider Radiology Diagnostic Radiology | DX: M79.672 Pain in left foot (principal); M79.671 Pain in right foot; M25.571 Pain in right ankle and joints of right foot; M79.662 Pain in left lower leg; M79.661 Pain in right lower leg; W20.8XXA Other cause of strike by thrown, projected or falling object, initial encounter; Z04.2 Encounter for examination and observation following work accident | CPT/HCPCS: 73590; 73600; 73630 ==

== ENCOUNTER 2024-08-19 11:59 | Observation (INO) | payer MEDICAID, SELFPAY ==
[2024-08-19] VITALS (12 sets, daily range): BP systolic 125–218; BP diastolic 61–129; PULSE 20–109; RESP 18–102; TEMP 36.6–37.1; O2SAT 95–100; BMI 35.5; BMI 35.1
--- NOTE | ~2024-08-19 | CT_ITS ---
CLINICAL HISTORY: hypertensive urgency CT head without contrast Comparison: CT/SR - CT ANGIO HEAD NECK STROKE - 07/26/23 15:05 EDT MR/SR - MR HEAD/BRAIN WO CON - 07/26/23 11:[address]/REG/SR - CT HEAD/BRAIN WO IV CON - 07/26/23 01:45 EDT Findings: No acute hemorrhage. No extra-axial fluid collection. No hydrocephalus, mass-effect or herniation. Bynum-white differentiation is maintained. There is patchy hypoattenuation of the periventricular and deep white matter, which is most likely the sequela of moderate chronic small vessel ischemic disease and is similar to the prior studies, advanced for age. No acute orbital pathology. No acute soft tissue abnormality. No fracture. Mucosal thickening in the paranasal sinuses may indicate sinusitis. The mastoid air cells are clear. Impression: No acute intracranial findings. This document has been electronically signed by: Liyah Sage MD on 08/19/2024 17:51:23
--- NOTE | ~2024-08-19 | XR_ITS ---
CLINICAL HISTORY: Hypertensive urgency Chest Radiograph Comparison: 07/25/23 Findings: Prominent cardiac silhouette, similar to the prior study. Normal mediastinal contours. No pneumothorax. No opacity. No pleural effusion. Normal upper abdomen. No acute fracture. Impression: No acute findings. This document has been electronically signed by: Liyah Sage MD on 08/19/2024 17:43:23
--- NOTE | 2024-08-19 12:02 | ED.GENADULT ---
HPI - General Adult General Chief complaint: General Medical Stated complaint: Nausea Tingling Hands Feet Time Seen by Provider: 08/19/24 12:32 Related Data Previous Rx's ?Medication ?Instructions ?Recorded blood-glucose meter (FreeStyle #1 ea 09/05/20 [place] kit) nebulizers #1 ea 06/17/21 blood pressure monitor #1 ea 11/22/22 pen needle, diabetic 32 gauge x #100 ea 02/02/23 5/16 (Comfort EZ Pen [place]) flash glucose scanning reader #1 ea 02/05/23 (FreeStyle [place] 2 [place]) fluticasone propionate 115 2 puff inhalation BID #12 grams 05/18/23 mcg-salmeterol 21 mcg/actuation HFA inhaler flash glucose sensor (FreeStyle #2 ea 09/25/23 [place] 2 Sensor kit) blood-glucose sensor ([employer] G7 #3 ea 10/24/23 Sensor device) cyclobenzaprine 10 mg tablet 10 mg PO TID PRN muscle spasm #90 11/13/23 tabs acetone (urine) test (Ketone Urine #50 ea 12/08/23 Test strips) blood-glucose meter (FreeStyle #1 ea 12/08/23 Lite Meter kit) clotrimazole 1 % topical cream 1 appl topical BID 4 weeks #30 12/08/23 grams blood presure cuff #1 ea 01/02/24 lisinopril 20 mg tablet 20 mg PO DAILY 30 days #30 tabs 01/02/24 albuterol sulfate 0.63 mg/3 mL 0.63 mg (3 mL) inhalation Q4-6H 02/07/24 solution for nebulization PRN shortness of breath or wheezing #90 mL albuterol sulfate 90 mcg/actuation 2 inh inhalation Q4-6H PRN 02/07/24 breath activated powder shortness of breath or wheezing #1 inhaler,sensor ea amlodipine 10 mg tablet 10 mg PO BEDTIME 90 days #90 tabs 02/07/24 aspirin 81 mg tablet,delayed 81 mg PO DAILY 90 days #90 tabs 02/07/24 release atorvastatin 80 mg tablet 80 mg PO DAILY 90 days #90 tabs 02/07/24 clopidogrel 75 mg tablet 75 mg PO DAILY 6 weeks #42 tabs 02/07/24 dulaglutide 1.5 mg/0.5 mL 1.5 mg (0.5 mL) subcut QWEEK 28 02/07/24 subcutaneous pen injector days #2 mL (Trulicity) insulin lispro 100 unit/mL See Rx Instructions subcut TID 42 02/07/24 subcutaneous pen (Humalog KwikPen 30 days #15 mL (U-100) Insulin) metronidazole 500 mg tablet 500 mg PO BID 7 days #14 tabs 02/07/24 potassium chloride 20 mEq 20 meq PO DAILY #14 tabs 02/07/24 tablet,extended release metformin 1,000 mg tablet 1,000 mg PO BID #180 tabs 02/24/24 spironolactone 50 mg tablet 50 mg PO BID #180 tabs 03/28/24 insulin glargine 100 unit/mL (3 32 unit (0.32 mL) subcut BID 90 05/22/24 mL) subcutaneous pen (Lantus days #60 mL Solostar U-100 Insulin) diclofenac sodium 1 % topical gel 2 g topical QID #100 grams 06/10/24 Allergies Allergy/AdvReac Type Severity Reaction Status Date / Time Iodinated Contrast Media Allergy Intermediate Anaphylaxis Verified 08/19/24 12:04 [facility] Past Medical History Medical History Diabetes mellitus with diabetic nephropathy Hypertension Hypertensive emergency Acute non-ST elevation myocardial infarction (NSTEMI) UTI (urinary tract infection) Anemia Bilateral hand numbness Bilateral hand pain HSV (herpes simplex virus) infection Smoking TIA (transient ischemic attack) DJD (degenerative joint disease) GERD (gastroesophageal reflux disease) Asthma Obesity Diabetes mellitus HTN (hypertension) Surgical History H/O cardiac catheterization Hx of tubal ligation Hx of cholecystectomy Hx of appendectomy Hx of section Family History Family History Mother Heart disease Diabetes Hypertension Hyperlipidemia Fibromyalgia Father No problems noted. Brother No problems noted. Brother No problems noted. Brother No problems noted. Sister Deep vein thrombosis Son No problems noted. Son No problems noted. Daughter Hypertension Daughter No problems noted. Maternal Aunt History of breast cancer Social History Social History Household Members: Family Housing: Apartment Do you presently have visiting nurse or other home services: No Alcohol intake: never Patient Tobacco Use Status: Never used Tobacco Tobacco use type: Cigarette Cigarettes Per Day: 3 Smoked in Last 30 Days: No e-Cigarette/Vaping Use: Never Used Second Hand Smoke Exposure: No Use of substances other than those prescribed or required for medical reasons: No Advance Directives: No Advance Directives Information Provided: Yes Do you have a plan to hurt others: No Plan service: No Current occupational status: employed Cognitive needs: No Hearing needs: No Vision needs: Yes (glasses) Physical Exam ED Vital Signs: Vital Signs - 24 hr 08/19/24 12:02 08/19/24 12:34 08/19/24 14:35 Temperature 98 F 98.8 F Pulse Rate 100 20 L 95 Respiratory Rate 19 102 H 19 Blood Pressure 218/109 H 187/93 H 201/116 H Pulse Oximetry 98 96 100 Oxygen Delivery Method Room Air Room Air Room Air 08/19/24 15:12 08/19/24 16:00 08/19/24 16:51 Temperature Pulse Rate 92 Respiratory Rate 18 Blood Pressure 204/117 H 189/107 H 213/129 H Pulse Oximetry 95 Oxygen Delivery Method Room Air BMI result Body Mass Index 35.5 Course Course Course Narrative: RME, this is a rapid medical exam performed by Graham Moon please refer to primary provider for complete H&P- 43-year-old female past medical history significant for asthma, hypertension, previous CVA, diabetes, GERD presents for evaluation of numbness and tingling in both arms and legs. She also complains of lower back pain. She reports blurry vision in seeing stars in both sides. No neuro deficits in triage. She reports her symptoms started when she while trying to go to sleep Monday night. BP in triage is 218/109 Medications Administered Discontinued Medications Generic Name Dose Route Start Last Admin Trade Name Freq PRN Reason Stop Dose Admin Amlodipine Besylate 5 mg 08/19/24 15:03 08/19/24 15:12 Amlodipine Besylate 5 Mg Tablet PO 08/19/24 15:04 5 mg ONCE ONE Administration Protocol Amlodipine Besylate 5 mg 08/19/24 16:19 08/19/24 16:51 Amlodipine Besylate 5 Mg Tablet PO 08/19/24 16:20 5 mg ONCE ONE Administration Protocol Magnesium Sulfate 2 gm in 50 mls @ 25 mls/hr 08/19/24 13:08 08/19/24 15:43 Magnesium Sulfate/H2o IV 08/19/24 15:07 Infused ONCE ONE Infusion Potassium Chloride 10 meq in 100 mls @ 100 mls/hr 08/19/24 13:08 08/19/24 14:56 Potassium Chloride/H20 IV 08/19/24 14:07 Infused ONCE ONE Infusion Sodium Chloride 1,000 mls @ 999 mls/hr 08/19/24 13:13 08/19/24 14:56 Ns IV 08/19/24 14:13 Infused .Q1H1M ONE Infusion Potassium Chloride 40 meq 08/19/24 13:08 08/19/24 13:40 Potassium Chloride Packet 20 Meq Packet PO 08/19/24 13:09 40 meq ONCE ONE Administration Medical Decision Making Differential Diagnosis Differential Diagnoses: The differential diagnosis associated with the presentation includes (hypertensive urgency, CVA, ACS, UTI, hypokalemia, hypomagnesemia.) Admission/Observation Consideration of admission/observation: Escalation of care including admission/observation considered Consult Healthcare Provider Management of the patient was discussed with: Hospitalist (Dr. Perez) Lab Data MDM Lab Attestation statement: I reviewed the patient's lab results. 08/19/24 12:28 08/19/24 12:28 Labs: Lab Results 08/19/24 08/19/24 08/19/24 Range/Units 12:28 14:53 14:57 WBC 9.6 (4.8-10.8) X10*3/uL RBC 5.76 H (4.20-5.50) X10*6/uL Hgb 12.6 (12.0-16.0) g/dl Hct 39.8 (37.0-47.0) % MCV 69.1 L (80.0-98.0) fL MCH 21.9 L (27.0-33.0) pg MCHC 31.7 (31.0-35.0) g/dl RDW 17.3 H (11.0-16.0) % Plt Count 293 (160-400) X10*3/uL MPV 10.9 (9.4-12.3) fL Immature Gran % (Auto) 0.4 (0.0-0.4) % Neut % (Auto) 58.0 (45-73) % Lymph % (Auto) 27.5 (20-40) % [place] % (Auto) 9.6 (2-11) % Eos % (Auto) 4.1 H (0-4) % Baso % (Auto) 0.4 (0-2) % Lymph # (Auto) 2.6 (1.2-4.9) X10*3/uL [place] # (Auto) 0.9 (0.1-1.2) X10*3/uL Eos # (Auto) 0.4 (0.0-0.4) X10*3/uL Baso # (Auto) 0.0 (0.0-0.2) X10*3/uL Abs Immat Gran (auto) 0.04 H (0.00-0.03) X10*3/uL Absolute Neuts (auto) 5.6 (2.0-8.3) x10*3/uL Absolute Nucleated RBC 0.000 (0.0-0.012) X10*3/uL Nucleated RBC % (auto) 0.0 (0.0-0.2) /100WBC Sodium 135 (135-145) mmol/L Potassium 3.2 L (3.3-5.1) mmol/L Chloride 100 (96-108) mmol/L Carbon Dioxide 24 (22-29) mmol/L Anion Gap 14 (12-20) BUN 10 (9-16) mg/dL Creatinine 0.90 (0.5-1.4) mg/dL Estim Creat Clear Calc 82.1 Estimated GFR > 60 POC Glucose 284 H (60-115) mg/dL Random Glucose 327 H (60-115) mg/dL Calcium 9.3 (8.4-10.2) mg/dL Magnesium 1.5 L (1.6-2.6) mg/dL Total Bilirubin 0.5 (0.0-1.0) mg/dL AST 23 (5-31) U/L ALT 18 (0-31) U/L Alkaline Phosphatase 86 (39-117) U/L Troponin I High Sens 81.0 H* D 78.4 H* (<3.5-17.0) ng/L Total Protein 7.8 (6.5-8.0) g/dL Albumin 4.1 (3.5-5.0) g/dL Lipase 19 (8-78) U/L Urine Color Yellow Urine Appearance Clear Urine pH 6.5 (5.0-9.0) Ur Specific [place] 1.020 (1.005-1.025) Urine Protein 30 (1+) H (Neg-Trace) mg/dL Urine Glucose (UA) >=1000 H (Negative) mg/dL Urine Ketones Negative (Negative) mg/dL Urine Blood Negative (Negative) Urine Nitrite Negative (Negative) Ur Leukocyte Esterase Negative (Negative) Urine RBC 0-2 (0-2) /HPF Urine WBC 0-5 (0-5) /HPF Ur Squamous Epith Cells 0-2 (0-2) /HPF Urine Bacteria None Seen (None Seen) Hyaline Casts 0-2 (0-2) /LPF Independent Interpretation I performed an independent interpretation of an: Plain X-Ray (chest: no acute pathology) Radiology Impression Discussion of test interpretation with radiology: I have reviewed the radiologist's reading. Discharge Plan Discharge Clinical Impression: Hypertensive urgency, Hypomagnesemia, Hypokalemia Patient Disposition: Admitted As Inpatient Print Language: [place]
--- NOTE | 2024-08-19 12:03 | ECG_ITS ---
Test Reason : WEAKNESS Blood Pressure : */* mmHG Vent. Rate : 102 BPM Atrial Rate : 102 BPM P-R Int : 158 ms QRS Dur : 90 ms QT Int : 366 ms P-R-T Axes : 59 -18 144 degrees QTcB Int : 477 ms Sinus tachycardia Left ventricular hypertrophy with repolarization abnormality ( R in aVL , Neptali product ) Cannot rule out Septal infarct , age undetermined Abnormal ECG When compared with ECG of 04-Dec-2023 12:00, Minimal criteria for Septal infarct are now Present Referred By: Noé Moon Electronically Signed By: Marlon Mclain
[2024-08-19 12:36] LABS: MANUAL DIFF FLAG NO
[2024-08-19 12:56] LABS: Alanine Aminotransferase 18 U/L (0-31); Albumin Level 4.1 g/dL (3.5-5.0); Alkaline Phosphatase 86 U/L (39-117); Anion Gap 14 (12-20); Aspartate Amino Transferase 23 U/L (5-31); Bilirubin Total 0.5 mg/dL (0.0-1.0); Blood Urea Nitrogen 10 mg/dL (9-16); Calcium 9.3 mg/dL (8.4-10.2); Carbon Dioxide 24 mmol/L (22-29); Chloride 100 mmol/L (96-108); Creatinine Clr Calc Pharmacy 82.1; Estimated Glomerular Filt Rate > 60; Glucose Random 327 mg/dL (60-115); Lipase 19 U/L (8-78); Magnesium 1.5 mg/dL (1.6-2.6); Potassium 3.2 mmol/L (3.3-5.1); Sodium 135 mmol/L (135-145); Total Protein 7.8 g/dL (6.5-8.0)
--- NOTE | 2024-08-19 13:10 | ED.GENADULT ---
HPI - General Adult General Chief complaint: General Medical Stated complaint: Nausea Tingling Hands Feet Time Seen by Provider: 08/19/24 12:32 Source: patient Mode of arrival: ambulatory Limitations: no limitations History of Present Illness ED Provider: DR. Baez HPI narrative: 43-year-old female came in for evaluation of multiple symptoms. Bilateral upper and lower extremities heaviness with tingling x4 extremity for 2-3 days pain No weakness, no numbness, no fever, no chills. Patient also is complaining of a blurry vision on and off for the past 3 days now patient stated that her vision is within normal. Lower abdominal pressure more with urination. Patient ran out of her blood pressure medication due to insurance issue. Related Data Previous Rx's ?Medication ?Instructions ?Recorded blood-glucose meter (FreeStyle #1 ea 09/05/20 [place] kit) nebulizers #1 ea 06/17/21 blood pressure monitor #1 ea 11/22/22 pen needle, diabetic 32 gauge x #100 ea 02/02/23 5/ (Comfort EZ Pen [place]) flash glucose scanning reader #1 ea 02/05/23 (FreeStyle [place] 2 [place]) fluticasone propionate 115 2 puff inhalation BID #12 grams 05/18/23 mcg-salmeterol 21 mcg/actuation HFA inhaler flash glucose sensor (FreeStyle #2 ea 09/25/23 [place] 2 Sensor kit) blood-glucose sensor (Dexcom G7 #3 ea 10/24/23 Sensor device) cyclobenzaprine 10 mg tablet 10 mg PO TID PRN muscle spasm #90 11/13/23 tabs acetone (urine) test (Ketone Urine #50 ea 12/08/23 Test strips) blood-glucose meter (FreeStyle #1 ea 12/08/23 Lite Meter kit) clotrimazole 1 % topical cream 1 appl topical BID 4 weeks #30 12/08/23 grams blood presure cuff #1 ea 01/02/24 lisinopril 20 mg tablet 20 mg PO DAILY 30 days #30 tabs 01/02/24 albuterol sulfate 0.63 mg/3 mL 0.63 mg (3 mL) inhalation Q4-6H 02/07/24 solution for nebulization PRN shortness of breath or wheezing #90 mL albuterol sulfate 90 mcg/actuation 2 inh inhalation Q4-6H PRN 02/07/24 breath activated powder shortness of breath or wheezing #1 inhaler,sensor ea amlodipine 10 mg tablet 10 mg PO BEDTIME 90 days #90 tabs 02/07/24 aspirin 81 mg tablet,delayed 81 mg PO DAILY 90 days #90 tabs 02/07/24 release atorvastatin 80 mg tablet 80 mg PO DAILY 90 days #90 tabs 02/07/24 clopidogrel 75 mg tablet 75 mg PO DAILY 6 weeks #42 tabs 02/07/24 dulaglutide 1.5 mg/0.5 mL 1.5 mg (0.5 mL) subcut QWEEK 28 02/07/24 subcutaneous pen injector days #2 mL (Trulicity) insulin lispro 100 unit/mL See Rx Instructions subcut TID 42 02/07/24 subcutaneous pen (Humalog KwikPen 30 days #15 mL (U-100) Insulin) metronidazole 500 mg tablet 500 mg PO BID 7 days #14 tabs 02/07/24 potassium chloride 20 mEq 20 meq PO DAILY #14 tabs 02/07/24 tablet,extended release metformin 1,000 mg tablet 1,000 mg PO BID #180 tabs 02/24/24 spironolactone 50 mg tablet 50 mg PO BID #180 tabs 03/28/24 insulin glargine 100 unit/mL (3 32 unit (0.32 mL) subcut BID 90 05/22/24 mL) subcutaneous pen (Lantus days #60 mL Solostar U-100 Insulin) diclofenac sodium 1 % topical gel 2 g topical QID #100 grams 06/10/24 Allergies Allergy/AdvReac Type Severity Reaction Status Date / Time Iodinated Contrast Media Allergy Intermediate Anaphylaxis Verified 08/19/24 12:04 Review of Systems Review of Systems: All other systems are reviewed and are negative Constitutional: Reports as per HPI and Reports no additional constitutional complaints Eyes: Reports as per HPI and Reports no additional eye complaints Reports system reviewed and no additional complaints, except as documented Cardiovascular: Reports as per HPI and Reports no additional cardiovascular complaints Respiratory: Reports as per HPI and Reports no additional respiratory complaints Gastrointestinal: Reports as per HPI and Reports no additional gastrointestinal complaints Genitourinary: Reports no additional female genitourinary complaints Musculoskeletal: Reports no additional musculoskeletal complaints Skin/Breast: Reports system reviewed and no additional complaints, except as docu Psychiatric: Reports no additional psychiatric complaints Endocrine: Reports no additional endocrine complaints Hematologic/Lymphatic: Reports no additional hematologic/lymphatic complaints Allergic/Immunologic: Reports no additional allergic/immunologic complaints Reports system reviewed and no additional complaints, except as documented and Reports Abnormal speech present [facility] Past Medical History Medical History Diabetes mellitus with diabetic nephropathy Hypertension Hypertensive emergency Acute non-ST elevation myocardial infarction (NSTEMI) UTI (urinary tract infection) Anemia Bilateral hand numbness Bilateral hand pain HSV (herpes simplex virus) infection Smoking TIA (transient ischemic attack) DJD (degenerative joint disease) GERD (gastroesophageal reflux disease) Asthma Obesity Diabetes mellitus HTN (hypertension) Surgical History H/O cardiac catheterization Hx of tubal ligation Hx of cholecystectomy Hx of appendectomy Hx of section Family History Family History Mother Heart disease Diabetes Hypertension Hyperlipidemia Fibromyalgia Father No problems noted. Brother No problems noted. Brother No problems noted. Brother No problems noted. Sister Deep vein thrombosis Son No problems noted. Son No problems noted. Daughter Hypertension Daughter No problems noted. Maternal Aunt History of breast cancer Social History Social History Household Members: Family Housing: Apartment Do you presently have visiting nurse or other home services: No Alcohol intake: never Patient Tobacco Use Status: Never used Tobacco Tobacco use type: Cigarette Cigarettes Per Day: 3 Smoked in Last 30 Days: No e-Cigarette/Vaping Use: Never Used Second Hand Smoke Exposure: No Use of substances other than those prescribed or required for medical reasons: No Advance Directives: No Advance Directives Information Provided: Yes Do you have a plan to hurt others: No Plan service: No Current occupational status: employed Cognitive needs: No Hearing needs: No Vision needs: Yes (glasses) Physical Exam ED Vital Signs: Vital Signs - 24 hr 08/19/24 12:02 08/19/24 12:34 08/19/24 14:35 Temperature 98 F 98.8 F Pulse Rate 100 20 L 95 Respiratory Rate 19 102 H 19 Blood Pressure 218/109 H 187/93 H 201/116 H Pulse Oximetry 98 96 100 Oxygen Delivery Method Room Air Room Air Room Air 08/19/24 15:12 08/19/24 16:00 08/19/24 16:51 Temperature Pulse Rate 92 Respiratory Rate 18 Blood Pressure 204/117 H 189/107 H 213/129 H Pulse Oximetry 95 Oxygen Delivery Method Room Air 08/19/24 17:54 08/19/24 18:49 Temperature Pulse Rate 108 H Respiratory Rate 22 H Blood Pressure 194/89 H 188/70 H Pulse Oximetry 99 Oxygen Delivery Method Room Air BMI result Body Mass Index 35.5 Vital signs have been reviewed and appear to be correct. Blood pressure elevated. Heart rate normal. Respiratory rate normal. Temperature normal. Oxygen saturation normal. Appearance: Alert. Oriented X3. No acute distress. Head: Normal external exam. Normocephalic. Atraumatic. No Sandoval signs noted. No raccoon eyes noted Eyes: Patient reports worsening of blurred vision with gazing to the right General: appearance normal, both eyes and all related structures Visual Garcia: normal visual garcia by confrontation Alignment and Position: alignment normal and position normal Periorbital: periorbital findings normal Eyelids: Yes eyelids normal Conjunctivae: conjunctivae normal Sclerae: sclerae normal Corneas: corneas normal Pupils: Equal, round and reactive pupils present and Pupil accommodation reflex normal EOM: EOM abnormal (Limited abduction of right eye) and No Nystagmus present Direct Ophthalmoscopy: normal light reflex, no photophobia, no papilledema and fundi normal bilaterally ENT: TM's Normal. Pharynx normal. Uvula midline. Moist mucous membranes. No trismus noted. No drooling noted. No muffled voice noted. Neck: Normal inspection. Neck supple. FROM. No adenopathy. Thyroid Normal. No meningeal signs. No neck mass noted. CVS: Normal heart rate and rhythm. Heart sound normal. No murmurs noted. Pulses normal throughout. Respiratory: No respiratory distress. Painless inspiration. Breath sounds normal. No wheezes/rales/rhonchi noted. Chest nontender. No accessory muscle usage noted or decreased air movement noted. Abdomen: Soft and nontender. Bowel sounds normal in all 4 quadrants. No distention noted. No organomegaly noted. No visible injury noted. Back: No CVA tenderness. Full range of motion noted. Skin: Skin warm and dry. Normal skin color. Normal skin turgor. No rashes/lesions/lacerations noted. Extremities: No lower extremity edema. Extremities exhibit normal range of motion. Extremities nontender. Neuro: Mental status: Normal attention, orientation, memory, and affect. Cranial nerves: Pupils are equal, round and reactive to light, EOMI, visual garcia are fall, face is symmetric, facial sensations are normal. Motor examination normal muscle tone, strength to 4 extremities. DTR are +2, planter's are flexor. Sensory exam; normal coordination, no ataxia, gait stable. Cerebellar exam: Kopomn-sz-mtmg and bicg-gj-hikp is normal. Extrapyramidal system: No tremors, no rigidity with normal facial expressions. Pronator drift not present NIH Stroke Scale Time: 13:15 Level of Consciousness: Alert Level of Consciousness Questions: Answers both questions correctly Level of Consciousness Commands: Performs both tasks correctly Best Gaze: Normal Visual: No visual loss Facial Palsy: Normal Motor Arm (Right): No drift Motor Arm (Left): No drift Motor Leg (Right): No drift Motor Leg (Left): No drift Limb Ataxia: Absent Sensory: Normal Best Language: No aphasia Dysarthia: Normal Extinction and Inattention: No abnormality Score: 0 Course Reevaluation(s) Reevaluation #1: Hypertensive urgency, patient is not compliant with her blood pressure medications secondary to insurance issue, elevated troponin with no delta changes. EKG is consistent with LVH with no acute ischemic changes. Amlodipine seems to be good medicine to control patient's blood pressure. hypokalemia and hypomagnesemia (replaced via iv/po) responded initially to amlodepine, consider iv hydralazin Patient will need to be admitted for further monitoring of her blood pressure. await for ct head, s.o to Dr. Ramey to check. case discussed [facility] Dr. Carrillo await for ct head result and admission. Time: 16:05 Medications Administered Discontinued Medications Generic Name Dose Route Start Last Admin Trade Name Freq PRN Reason Stop Dose Admin Amlodipine Besylate 5 mg 08/19/24 15:03 08/19/24 15:12 Amlodipine Besylate 5 Mg Tablet PO 08/19/24 15:04 5 mg ONCE ONE Administration Protocol Amlodipine Besylate 5 mg 08/19/24 16:19 08/19/24 16:51 Amlodipine Besylate 5 Mg Tablet PO 08/19/24 16:20 5 mg ONCE ONE Administration Protocol Diazepam 2.5 mg 08/19/24 18:45 08/19/24 18:54 Diazepam 10 Mg/2 Ml Cartridge IVPUSH 08/19/24 18:46 2.5 mg STAT STA Administration Hydralazine HCl 10 mg 08/19/24 17:39 08/19/24 17:54 Hydralazine Hcl 20 Mg/Ml Vial IVPUSH 08/19/24 17:40 10 mg ONCE ONE Administration Protocol Magnesium Sulfate 2 gm in 50 mls @ 25 mls/hr 08/19/24 13:08 08/19/24 15:43 Magnesium Sulfate/H2o IV 08/19/24 15:07 Infused ONCE ONE Infusion Potassium Chloride 10 meq in 100 mls @ 100 mls/hr 08/19/24 13:08 08/19/24 14:56 Potassium Chloride/H20 IV 08/19/24 14:07 Infused ONCE ONE Infusion Sodium Chloride 1,000 mls @ 999 mls/hr 08/19/24 13:13 08/19/24 14:56 Ns IV 08/19/24 14:13 Infused .Q1H1M ONE Infusion Potassium Chloride 40 meq 08/19/24 13:08 08/19/24 13:40 Potassium Chloride Packet 20 Meq Packet PO 08/19/24 13:09 40 meq ONCE ONE Administration Medical Decision Making Medical Decision Making [facility] Narrative: CT scan of the head did not show any acute abnormality I discussed the above-mentioned with Dr. Perez Patient received a dose of hydralazine, I was informed by the patient's nurse that the patient started becoming very anxious. I immediately assessed the patient, no signs of allergic reaction. No hives, no angioedema, no wheezing. Patient was given IV diazepam with good results. Patient had anxiety. Differential Diagnosis Differential Diagnoses: The differential diagnosis associated with the presentation includes (Hypertensive urgency, hypertensive emergency, neurological deficit, electrolyte derangement, ACS, UTI.) Admission/Observation Consideration of admission/observation: Escalation of care including admission/observation considered Consult Healthcare Provider Management of the patient was discussed with: Hospitalist (Chris) Lab Data MDM Lab Attestation statement: I reviewed the patient's lab results. 08/19/24 12:28 08/19/24 12:28 Labs: Lab Results 05/26/25 05/26/25 05/26/25 Range/Units 12:28 14:53 14:57 WBC 9.6 (4.8-10.8) X10*3/uL RBC 5.76 H (4.20-5.50) X10*6/uL Hgb 12.6 (12.0-16.0) g/dl Hct 39.8 (37.0-47.0) % MCV 69.1 L (80.0-98.0) fL MCH 21.9 L (27.0-33.0) pg MCHC 31.7 (31.0-35.0) g/dl RDW 17.3 H (11.0-16.0) % Plt Count 293 (160-400) X10*3/uL MPV 10.9 (9.4-12.3) fL Immature Gran % (Auto) 0.4 (0.0-0.4) % Neut % (Auto) 58.0 (45-73) % Lymph % (Auto) 27.5 (20-40) % [place] % (Auto) 9.6 (2-11) % Eos % (Auto) 4.1 H (0-4) % Baso % (Auto) 0.4 (0-2) % Lymph # (Auto) 2.6 (1.2-4.9) X10*3/uL [place] # (Auto) 0.9 (0.1-1.2) X10*3/uL Eos # (Auto) 0.4 (0.0-0.4) X10*3/uL Baso # (Auto) 0.0 (0.0-0.2) X10*3/uL Abs Immat Gran (auto) 0.04 H (0.00-0.03) X10*3/uL Absolute Neuts (auto) 5.6 (2.0-8.3) x10*3/uL Absolute Nucleated RBC 0.000 (0.0-0.012) X10*3/uL Nucleated RBC % (auto) 0.0 (0.0-0.2) /100WBC Sodium 135 (135-145) mmol/L Potassium 3.2 L (3.3-5.1) mmol/L Chloride 100 (96-108) mmol/L Carbon Dioxide 24 (22-29) mmol/L Anion Gap 14 (12-20) BUN 10 (9-16) mg/dL Creatinine 0.90 (0.5-1.4) mg/dL Estim Creat Clear Calc 82.1 Estimated GFR > 60 POC Glucose 284 H (60-115) mg/dL Random Glucose 327 H (60-115) mg/dL Calcium 9.3 (8.4-10.2) mg/dL Magnesium 1.5 L (1.6-2.6) mg/dL Total Bilirubin 0.5 (0.0-1.0) mg/dL AST 23 (5-31) U/L ALT 18 (0-31) U/L Alkaline Phosphatase 86 (39-117) U/L Troponin I High Sens 81.0 H* D 78.4 H* (<3.5-17.0) ng/L Total Protein 7.8 (6.5-8.0) g/dL Albumin 4.1 (3.5-5.0) g/dL Lipase 19 (8-78) U/L Urine Color Yellow Urine Appearance Clear Urine pH 6.5 (5.0-9.0) Ur Specific [place] 1.020 (1.005-1.025) Urine Protein 30 (1+) H (Neg-Trace) mg/dL Urine Glucose (UA) >=1000 H (Negative) mg/dL Urine Ketones Negative (Negative) mg/dL Urine Blood Negative (Negative) Urine Nitrite Negative (Negative) Ur Leukocyte Esterase Negative (Negative) Urine RBC 0-2 (0-2) /HPF Urine WBC 0-5 (0-5) /HPF Ur Squamous Epith Cells 0-2 (0-2) /HPF Urine Bacteria None Seen (None Seen) Hyaline Casts 0-2 (0-2) /LPF Independent Interpretation I performed an independent interpretation of an: Plain X-Ray and CT Scan Critical Care Time Critical Care Time Critical Care Time: Yes Total Critical Care Time: 45 Attestation: The patient was critically ill with a high probability of imminent or life-threatening deterioration. I spent greater than 30 minutes of discontinuous time evaluating the patient, delivering critical care at the bedside, discussing evaluating data with consultants. Critical care time does not include time spent performing separately billable procedures or teaching. Time spent performing critical care was 45 minutes. Discharge Plan Discharge Clinical Impression: Hypertensive urgency, Hypomagnesemia, Hypokalemia Patient Disposition: Admitted As Inpatient Print Language: Kazakh
[2024-08-19 13:11] LABS: Basophils Percent Auto 0.4 % (0-2); Eosinophils Absolute Auto 0.4 X10*3/uL (0.0-0.4); Eosinophils Percent Auto 4.1 % (0-4); Hematocrit 39.8 % (37.0-47.0); Hemoglobin 12.6 g/dl (12.0-16.0); Imm Gran Abs Auto 0.04 X10*3/uL (0.00-0.03); Imm Gran Pct Auto 0.4 % (0.0-0.4); Lymphocytes Absolute Auto 2.6 X10*3/uL (1.2-4.9); Lymphocytes Percent Auto 27.5 % (20-40); Mean Corpuscular HGB Conc 31.7 g/dl (31.0-35.0); Mean Corpuscular Hemoglobin 21.9 pg (27.0-33.0); Mean Corpuscular Volume 69.1 fL (80.0-98.0); Mean Platelet Volume 10.9 fL (9.4-12.3); Monocytes Absolute Auto 0.9 X10*3/uL (0.1-1.2); Monocytes Percent Auto 9.6 % (2-11); Neutrophils Absolute Auto 5.6 x10*3/uL (2.0-8.3); Platelet Count 293 X10*3/uL (160-400); Red Blood Count 5.76 X10*6/uL (4.20-5.50); Red Cell Distribution Width 17.3 % (11.0-16.0); White Blood Count 9.6 X10*3/uL (4.8-10.8)
[2024-08-19] MEDS: 0.9 % Sodium Chloride 1,000 ML 999 ML IV (13:36)
[2024-08-19] MEDS: Potassium Chloride Packet 20 MEQ PACKET 40 MEQ PO (13:40)
[2024-08-19] MEDS: Magnesium Sulfate/H2O 2 GM/50 ML PIGGYBACK IV (13:40)
[2024-08-19] MEDS: Potassium Chloride/H20 10 MEQ/100 ML PIGGYBACK 100 MEQ IV (13:40)
--- NOTE | 2024-08-19 14:59 | PC.NURSE ---
Provider aware of elevated BP- patient stating she has not taken her BP meds x 2 weeks because of a problem with her insurance. Provider in room to speak to patient
[2024-08-19 15:02] LABS: Glucose, Whole Blood 284 mg/dL (60-115)
[2024-08-19 15:05] LABS: Appearance Urine Clear; Color Urine Yellow; Glucose Urine UA >=1000 mg/dL (Negative); Leukocyte Esterase Urine Negative (Negative); Nitrite Urine Negative (Negative); PH 6.5 (5.0-9.0); UMIC TRIGGER UACC YES; Urine Blood Negative (Negative); Urine Ketones Negative (Negative); Urine Protein 30 (1+) mg/dL (Neg-Trace)
[2024-08-19 15:07] LABS: Bacteria Urine None Seen (None Seen); Hyaline Casts Urine 0-2 /LPF (0-2); RBC Urine 0-2 /HPF (0-2); Squamous Epithelial Cell Urine 0-2 /HPF (0-2); WBC Urine 0-5 /HPF (0-5)
[2024-08-19] MEDS: amLODIPine Besylate 5 MG TABLET PO ×2 (15:12→16:51)
--- NOTE | 2024-08-19 16:11 | PC.NURSE ---
BP remains elevated, provider aware. Patient oob to bathroom with steady gait
[2024-08-19] MEDS: hydrALAZINE HCl 20 MG/ML VIAL 10 MG IVPUSH (17:54)
--- NOTE | 2024-08-19 18:45 | ECG_ITS ---
Test Reason : SOB Blood Pressure : */* mmHG Vent. Rate : 111 BPM Atrial Rate : 111 BPM P-R Int : 154 ms QRS Dur : 84 ms QT Int : 350 ms P-R-T Axes : 57 -24 143 degrees QTcB Int : 476 ms Sinus tachycardia Possible Left atrial enlargement Left ventricular hypertrophy with repolarization abnormality ( R in aVL , Neptali product ) Cannot rule out Septal infarct (cited on or before 19-Aug-2024) Abnormal ECG When compared with ECG of 19-Aug-2024 12:19, No significant change was found Referred By: Tay Frey Electronically Signed By: Marlon Mclain
[2024-08-19] MEDS: diazePAM 10 MG/2 ML CARTRIDGE 2.5 MG IVPUSH (18:54)
[2024-08-19 19:17] LABS: Troponin-I High Sensitivity 78.4 ng/L (<3.5-17.0)
--- NOTE | 2024-08-19 19:47 | P.HPHOSP_ITS ---
History of Present Illness Date of Service: 08/19/24 Attending physician on admission: Tay Frey Chief Complaint: Elevated blood pressure Amy Persaud is a very pleasant 43 years old woman with past medical history significant for essential hypertension, obesity, type 2 diabetes mellitus on insulin, and obstructive sleep apnea (her machine has not been sent yet) presents to the emergency department complaining of plethora of symptoms including palpitation, chest tightness, shortness on breath with deep inspiration, dizziness, blurry vision, lower abdominal discomfort, headache (pressure-like sensation in the back of her head), tingling sensation to all fingerstips and pressure-like sensation upon urinating. These symptoms started 3 days ago. She stated that she has not been taking any of her medications over the last month due to insurance problems. She did not report nausea, vomiting or diarrhea. She also denied cough, fever, chills, speech difficulty, walking difficulty or focal weakness. She denies urinary changes such as foul odor or bloody urine. Denied alcohol abuse, tobacco smoking or illicit drug use. Patient did not recall the name of home her medications except for metformin, Trulicity and insulin. In the ED, she was found to have elevated blood pressure (max 213/129, most recent 215/108), mild tachycardia and tachypnea. Oxygen saturation is 99% on room air. Blood workup showed no leukocytosis. Hemoglobin is normal as well as platelets, 293. There is mild hypokalemia of 3.2 and hypomagnesemia of 1.5. Glucose 284. Troponin came back elevated x2 (81.0 --> 78.4). LFTs and lipase are normal. Urinalysis showed no evidence of UTI or hematuria. CXR is negative. Head CT scan without contrast showed no acute abnormalities. ECG showed sinus tachycardia of 101 beats per minute, LVH changes with repolarization abnormalities and without ischemic changes (changes similar to previous EKGs). ED tx: Magnesium 2 g IV, KCl 40 mEq p.o. x1, KCl IV, amlodipine 10 mg p.o. (total), hydralazine 10 mg IV, diazepam 2.5 mg IV Review of Systems 2 Review of Systems: All 12 systems were reviewed and normal except as noted in HPI. [facility] Medical History Diabetes mellitus with diabetic nephropathy Hypertension Hypertensive emergency Acute non-ST elevation myocardial infarction (NSTEMI) UTI (urinary tract infection) Anemia Bilateral hand numbness Bilateral hand pain HSV (herpes simplex virus) infection Smoking TIA (transient ischemic attack) DJD (degenerative joint disease) GERD (gastroesophageal reflux disease) Asthma Obesity Diabetes mellitus HTN (hypertension) Family History Mother Heart disease Diabetes Hypertension Hyperlipidemia Fibromyalgia Father No problems noted. Brother No problems noted. Brother No problems noted. Brother No problems noted. Sister Deep vein thrombosis Son No problems noted. Son No problems noted. Daughter Hypertension Daughter No problems noted. Maternal Aunt History of breast cancer Surgical History H/O cardiac catheterization Hx of tubal ligation Hx of cholecystectomy Hx of appendectomy Hx of section Social History Household Members: Family Housing: Apartment Do you presently have visiting nurse or other home services: No Alcohol intake: never Patient Tobacco Use Status: Never used Tobacco Tobacco use type: Cigarette Cigarettes Per Day: 3 Smoked in Last 30 Days: No e-Cigarette/Vaping Use: Never Used Second Hand Smoke Exposure: No Use of substances other than those prescribed or required for medical reasons: No Have you been hit, kicked, punched, or otherwise hurt by someone within the past year? If so, by whom?: No Do you feel safe in your current relationship?: Yes Is there a partner from a previous relationship who is making you feel unsafe now?: No Are you made to feel afraid or neglected: No Advance Directives: No Advance Directives Information Provided: Yes Do you have a plan to hurt others: No Plan Recently lost weight without trying: No Eating poorly because of decreased appetite: Yes Nutrition Risks: Difficulty swallowing Patient : No : No Poor oral hygiene: No service: No Current occupational status: employed Cognitive needs: No Hearing needs: No Vision needs: Yes (glasses) Meds Allergies Allergy/AdvReac Type Severity Reaction Status Date / Time Iodinated Contrast Media Allergy Intermediate Anaphylaxis Verified 08/19/24 12:04 Active Medications: Current Medications Acetaminophen (Acetaminophen 325 Mg Tablet) 975 mg PO Q6H PRN PRN Reason: Pain, Mild 1-3,fever,headache Amlodipine Besylate (Amlodipine Besylate 5 Mg Tablet) 5 mg PO DAILY MESHA; Protocol Aspirin (Aspirin 81 Mg Tab.Chew) 81 mg PO DAILY MESHA Calcium Carbonate (Calcium Carbonate 750 Mg Tab.Chew) 750 mg PO Q4H PRN PRN Reason: Heartburn Dextrose (Dextrose 50 % 25 Gm/50 Ml Syringe) 25 gm IVPUSH Q15M PRN; Protocol PRN Reason: per Hypoglycemia Standing Ord. Enoxaparin Sodium (Enoxaparin Sodium 40 Mg/0.4 Ml Syringe) 40 mg SUBCUT Q24H MESHA Glucose (Glucose Gel 15 Gm Gel..Gram.) 15 gm PO Q15M PRN; Protocol PRN Reason: per Hypoglycemia Standing Ord. Insulin Glargine (Insulin Glargine,Hum.Rec.Anlog 100 Unit/Ml 10 Ml Vial) 20 unit SUBCUT BEDTIME MESHA Insulin Human Lispro (Insulin Lispro 100 Unit/Ml 3 Ml Vial) 0 unit SUBCUT QIDACHS MESHA; Protocol Labetalol HCl (Labetalol Hcl 200 Mg Tablet) 200 mg PO BID MESHA; Protocol Magnesium Hydroxide (Milk Of Magnesia 30 Ml Oral.Susp) 30 ml PO DAILY PRN PRN Reason: Constipation Melatonin (Melatonin 3 Mg Tablet) 6 mg PO BEDTIME PRN PRN Reason: Insomnia Sodium Chloride (0.9 % Sodium Chloride Flush 3 Ml Syringe) 3 ml IVFLUSH QSHIFT MESHA Spironolactone (Spironolactone 25 Mg Tablet) 50 mg PO DAILY [facility]; Protocol Physical Exam 2 Vital Signs and Narrative: Vital Signs: Last Vital Signs Temp 98.8 F 08/19/24 12:34 Pulse 108 H 08/19/24 18:49 Resp 22 H 08/19/24 18:49 BP 188/70 H 08/19/24 18:49 Pulse Ox 99 08/19/24 18:49 O2 Del Method Room Air 08/19/24 18:49 BMI result Body Mass Index 35.5 Constitutional - Awake and Alert, No apparent distress. Obese. Pleasant. HEENT - PERRL, EOMI Heart -tachycardic, regular rhythm. No murmurs. Lungs - Normal lung expansion, Normal respiratory effort, No respiratory distress, CTA bilaterally Abdomen - NT / ND; +BS; No rebound or guarding Extremities - no calf tenderness bilaterally, no swelling Musculoskeletal - Normal inspection, normal ROM Skin - Warm/Dry. No pallor. Neurological - Alert & oriented x3, CN III-XII in tact, 5/5 strength BUE and BLE. Normal speech. Psychological - Appropriate affect Results Labs 08/19/24 12:28 08/19/24 12:28 Labs: Laboratory Results - last 24 hr 08/19/24 08/19/24 08/19/24 12:28 14:53 14:57 MCV 69.1 L MCH 21.9 L MCHC 31.7 RDW 17.3 H Plt Count 293 MPV 10.9 Immature Gran % (Auto) 0.4 Neut % (Auto) 58.0 Lymph % (Auto) 27.5 Clark % (Auto) 9.6 Eos % (Auto) 4.1 H Baso % (Auto) 0.4 Lymph # (Auto) 2.6 Clark # (Auto) 0.9 Eos # (Auto) 0.4 Baso # (Auto) 0.0 Abs Immat Gran (auto) 0.04 H Absolute Neuts (auto) 5.6 Absolute Nucleated RBC 0.000 Nucleated RBC % (auto) 0.0 Anion Gap 14 Estim Creat Clear Calc 82.1 Estimated GFR > 60 POC Glucose 284 H Random Glucose 327 H Calcium 9.3 Magnesium 1.5 L Total Bilirubin 0.5 AST 23 ALT 18 Alkaline Phosphatase 86 Total Protein 7.8 Albumin 4.1 Lipase 19 Urine Color Yellow Urine Appearance Clear Urine pH 6.5 Ur Specific [place] 1.020 Urine Protein 30 (1+) H Urine Glucose (UA) >=1000 H Urine Ketones Negative Urine Blood Negative Urine Nitrite Negative Ur Leukocyte Esterase Negative Urine RBC 0-2 Urine WBC 0-5 Ur Squamous Epith Cells 0-2 Urine Bacteria None Seen Hyaline Casts 0-2 Assessment and Plan (1) Hypertensive crisis: Status: Acute (2) Hypokalemia: Status: Acute (3) Hypomagnesemia: Status: Acute (4) Diabetes mellitus with diabetic nephropathy: Status: Acute Plan Amy Persaud is a 43 y/o woman admitted with: * Hypertensive crisis, chest pain, not taking her home meds over the last month due to medical insurance issues, Admit to hospitalist service. Telemetry. Labetalol 20 mg IV stat then 200 mg p.o. twice daily. Continue low. Continue amlodipine and spironolactone. Continue to monitor blood pressure closely. Aspirin 325 mg p.o. now then 81 mg p.o. daily. Nitroglycerin ointment. Check troponin later in the morning. TTE in the morning. Cardiology consult. Cardiac cath June 2021 - normal. * Type 2 diabetes mellitus. Lantus at bedtime, insulin sliding scale. Diabetic diet. BG checks before meals and bedtime. Check hemoglobin A1c. * History of hypokalemia and diabetic nephropathy. Has been workup for hyperaldosteronism but negative. Continue spironolactone. Replete as needed. Continue to monitor potassium level. * Hypomagnesemia. Replete as needed. Continue to monitor magnesium level. * Obstructive sleep apnea. Patient stated the CPAP machine has not been sent yet. * Medical insurance issues. Case Management consult. * Obesity, BMI 35.5 kg/m2. Weight loss. * Asthma. No evidence in acute exacerbation. DVT prophylaxis: Lovenox subcut, SCDs Code status: Full Patient will need hospitalization for at least 2 midnights for blood pressure controlled with IV agents, close monitoring of vital signs and further evaluation by cardiology service. Quality Stroke Does the patient have a stroke diagnosis?: No VTE Prior VTE?: No VTE Risk Level:: Medical - moderate - high VTE Device Contraindication: N/A - Device Ordered VTE Drug Contraindication: N/A - Med Ordered
[2024-08-19] MEDS: Nitroglycerin 2 % Oint 1 GM Packet 0.5 INCH TRANSDERMA (20:03)
[2024-08-19] MEDS: Labetalol HCL 100 MG/20 ML VIAL 20 MG IVPUSH (20:04)
[2024-08-19] MEDS: Aspirin Enteric Coated 325 MG TABLET.DR PO (20:05)
[2024-08-19 20:12] LABS: Thyroid Stimulating Hormone 1.61 uIU/mL (0.32-4.0)
--- NOTE | 2024-08-19 20:26 | PC.NURSE ---
Pt received 20mg IV Labetolol, .5inch of nitro paste to left chest and 325 asa. Tolerating well.
[2024-08-19] MEDS: Insulin Lispro 100 UNIT/ML 3 ML VIAL SUBCUT (21:24)
[2024-08-19 21:25] LABS: Glucose, Whole Blood 417 mg/dL (60-115)
[2024-08-19] MEDS: Insulin Glargine,Hum.rec.anlog 100 UNIT/ML 10 ML VIAL 20 UNIT SUBCUT (21:25)
[2024-08-19] MEDS: Labetalol HCL 200 MG TABLET PO (21:25)
[2024-08-19] MEDS: 0.9 % Sodium Chloride Flush 3 ML SYRINGE IVFLUSH (21:30)
[2024-08-19] MEDS: Melatonin 3 MG TABLET 6 MG PO (22:04)
[2024-08-19] MEDS: Acetaminophen 325 MG TABLET 975 MG PO (22:04)
--- NOTE | 2024-08-20 | ECG_ITS ---
Test Reason : htn Blood Pressure : */* mmHG Vent. Rate : 80 BPM Atrial Rate : 80 BPM P-R Int : 172 ms QRS Dur : 92 ms QT Int : 410 ms P-R-T Axes : 45 -26 154 degrees QTcB Int : 472 ms Normal sinus rhythm Possible Left atrial enlargement Left ventricular hypertrophy with repolarization abnormality ( R in aVL , Neptali product ) Cannot rule out Septal infarct (cited on or before 19-Aug-2024) Abnormal ECG When compared with ECG of 19-Aug-2024 18:45, No significant change was found Referred By: Danny Neumann Electronically Signed By: STEFFEN ADAM MD
[2024-08-20 02:03] LABS: Glucose, Whole Blood 362 mg/dL (60-115)
[2024-08-20 03:49] LABS: Troponin-I High Sensitivity 81.1 ng/L (<3.5-17.0)
[2024-08-20 03:51] VITALS: BP 142/63; PULSE 90; RESP 18; TEMP 36.4; O2SAT 96
[2024-08-20] MEDS: Enoxaparin Sodium 40 MG/0.4 ML SYRINGE SUBCUT (05:51)
--- NOTE | 2024-08-20 07:00 | CA_ITS ---
Transthoracic Echocardiogram Patient (Last, First, Middle): Amy Persaud, Gender: Female Date of : 1980 Age: 43 Procedure Date: 08/20/2024 Procedure Type: Transthoracic Echocardiogram Location: [facility] [place] Height: 157.48 cm Weight: 87.09 kg BSA: 1.88 m2 Heart Rate: 78 bpm BP: 142 / 63 mmHg Grass Cutter: SB Referring MD: Tay Frey MD [employer] Supervisor: Devang Flores MD Symptoms: chest pain Study Quality: Adequate ECG Rhythm: Sinus Conclusions: - 1. Normal LV ejection fraction of 65-70% with grade 2 diastolic dysfunction with severe left ventricular hypertrophy 2. Normal cardiac valvular Dopplers 3. Normal measured RV systolic pressure Findings Left Ventricle Normal left ventricular size and systolic function. There is severely increased left ventricular wall thickness. The visually estimated ejection fraction is between 65-70%. Spectral Doppler is indicative of a pseudonormal filling pattern. E/E prime ratio is >15, consistent with elevated filling pressures. Evidence suggests grade II (moderate) diastolic dysfunction. Right Ventricle Normal right ventricular cavity size and systolic function. Atria Both atria are normal in size. Interatrial shunt cannot be excluded. Aortic Valve Normal aortic valve structure and function. There is no aortic valve stenosis. There is no aortic valve regurgitation. Mitral Valve Normal mitral valve structure and function. There is trace mitral valve regurgitation. There is no mitral valve stenosis. Pulmonic Valve The pulmonic valve is likely normal. There is trace pulmonic valve regurgitation. Tricuspid Valve Normal tricuspid valve structure. There is mild tricuspid valve regurgitation. The right ventricular systolic pressure is normal. The right ventricular systolic pressure is 33 mmHg. Normal right atrial pressure. There is no evidence of pulmonary hypertension. Great Vessels All visible segments of the aorta are normal in size. The pulmonary artery was not well visualized. There is no dilatation of the ascending aorta measuring 3.20 cm. Venous The inferior vena cava is normal in size and collapses greater than 50% with inspiration. Pericardium/Pleural There is no evidence of pericardial effusion. Prior Study Comparison No significant change compared to prior study dated: 07/27/2023. Measurements 2D Linear Measurements IVSd: 1.66 0.6-0.9/0.6-1.0 cm LVIDd: 4.21 3.9-5.3/4.2-5.9 cm LVIDd Index: 2.24 2.4-3.2/2.2-3.1 cm/m2 LVIDs: 3.07 2.0-3.6 cm LVPWd: 1.68 0.7-1.1 cm LA Diam: 4.50 2.7-3.8/3.0-4.0 cm LAIDs Index: 2.39 1.5-2.3 cm/m2 LV Mass: 369.98 67-162/88-224 g LV Mass Index: 196.80 43-95/49-115 g/m2 LVOT Diam: 2.10 3.0+(-)1.3 cm 2D Systolic Function EF 4C: 67.70 >55% EF 2C: 74.00 >55% EF BiP: 70.80 >55% Mitral Valve MV Pk E: 0.95 MV PK A: 0.83 MV Decel Time: 178.00 E/A: 1.10 E'Lateral: 4.28 E'Medial: 3.68 E/E' Med: 25.70 E/E' Lat: 22.10 PHT: 52.00 MVA PHT: 4.[address] [place]: 5.32 Aortic Valve AoV Pk Leon: 1.57 AoV Pk Grad: 10.00 SUSAN: 2.60 LVOT LVOT Pk Leon: 1.18 LVOT Mn Leon: 0.75 LVOT VTI: 0.20 LVOT Pk Grad: 6.00 LVOT Mn Grad: 3.00 LVOT Diam: 2.10 LVOT Area: 3.46 Diastolic Function MV Pk E: 0.95 MV Pk A: 0.83 E/A: 1.10 E'Medial: 3.68 E/E' Med: 25.70 E' Laterial: 4.28 E/E' Lat: 22.10 Right Ventricle TAPSE (mm): 23.30 TVS' Leno: 14.00 Tricuspid Valve TR Pk Leon: 2.76 TR Pk Grad: 30.00 RA Press: 3.00 RVSP: 33.00 Great Vessels Aorta Sinus of Valsalva: 2.80 2.0-3.5 cm Ao Asc: 3.20 2.1-3.4 cm Pulmonary Veins Pulm Vein S/D 0.80 Pulmonary Valve PV Pk Leon: 0.98 Peak PV Grad: 4.00 Updated in Other Vendor System with Status of Final Devang Flores MD electronically signed on 08/20/2024 3:24:40 PM with status of Final
[2024-08-20 07:21] LABS: MANUAL DIFF FLAG NO
[2024-08-20 07:33] LABS: Basophils Absolute Auto 0.1 X10*3/uL (0.0-0.2); Basophils Percent Auto 0.5 % (0-2); Eosinophils Absolute Auto 0.3 X10*3/uL (0.0-0.4); Eosinophils Percent Auto 3.4 % (0-4); Hematocrit 35.9 % (37.0-47.0); Hemoglobin 11.1 g/dl (12.0-16.0); Imm Gran Abs Auto 0.04 X10*3/uL (0.00-0.03); Imm Gran Pct Auto 0.4 % (0.0-0.4); Lymphocytes Absolute Auto 3.2 X10*3/uL (1.2-4.9); Lymphocytes Percent Auto 34.8 % (20-40); Mean Corpuscular HGB Conc 30.9 g/dl (31.0-35.0); Mean Corpuscular Hemoglobin 21.9 pg (27.0-33.0); Mean Corpuscular Volume 70.7 fL (80.0-98.0); Mean Platelet Volume 11.2 fL (9.4-12.3); Monocytes Absolute Auto 0.9 X10*3/uL (0.1-1.2); Monocytes Percent Auto 9.9 % (2-11); Neutrophils Absolute Auto 4.7 x10*3/uL (2.0-8.3); Platelet Count 258 X10*3/uL (160-400); Red Blood Count 5.08 X10*6/uL (4.20-5.50); Red Cell Distribution Width 16.8 % (11.0-16.0); White Blood Count 9.2 X10*3/uL (4.8-10.8)
[2024-08-20 07:39] LABS: Glucose, Whole Blood 261 mg/dL (60-115)
[2024-08-20 07:48] VITALS: BP 140/79; PULSE 82; RESP 18; TEMP 36.2; O2SAT 98
[2024-08-20 07:49] LABS: Anion Gap 12 (12-20); Blood Urea Nitrogen 14 mg/dL (9-16); Calcium 8.8 mg/dL (8.4-10.2); Carbon Dioxide 24 mmol/L (22-29); Chloride 102 mmol/L (96-108); Cholesterol 157 mg/dL (<200); Creatinine Clr Calc Pharmacy 108.1; Estimated Glomerular Filt Rate > 60; Glucose Random 276 mg/dL (60-115); HDL Cholesterol 35 mg/dL (>40); LDL Cholesterol Calculated 100 mg/dL (<100); Magnesium 1.7 mg/dL (1.6-2.6); Potassium 3.3 mmol/L (3.3-5.1); Sodium 135 mmol/L (135-145); Triglycerides 114 mg/dL (<150)
[2024-08-20] MEDS: Spironolactone 25 MG TABLET 50 MG PO (08:17)
[2024-08-20] MEDS: amLODIPine Besylate 5 MG TABLET PO (08:18)
[2024-08-20] MEDS: Labetalol HCL 200 MG TABLET PO (08:18)
[2024-08-20] MEDS: Aspirin 81 MG TAB.CHEW PO (08:19)
[2024-08-20] MEDS: Insulin Lispro 100 UNIT/ML 3 ML VIAL SUBCUT ×2 (08:19→11:39)
[2024-08-20] MEDS: 0.9 % Sodium Chloride Flush 3 ML SYRINGE IVFLUSH (08:20)
[2024-08-20 09:00] LABS: Estimated Average Glucose 321 mg/dL; Hemoglobin A1C 347.1464 umol/L; Hemoglobin A1c % 12.8 % (<6.0); Total Hemoglobin (HGBA1C) 2991.2385 umol/L
--- NOTE | 2024-08-20 10:23 | PM.CNCAR ---
History of Present Illness History of Present Illness Date of Service: 08/20/24 Requesting physician: Danny Neumann Consult reason: troponin elevation and other (Hypertensive crisis) Chief complaint: Uncontrolled hypertension Narrative: I was consulted to see Amy in cardiology consultation today due to minimally elevated troponin and significantly elevated blood pressure. Patient's 43-year-old female with known significant hypertensive heart disease with severe LVH by last echocardiogram with prior history of CVA, diabetes, sleep apnea, hyperlipidemia. 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 She came to the hospital with multitude of symptoms which included headache, visual changes, chest discomfort, shortness of breath. She is noted to be markedly hypertensive with EKGs suggestive of LVH with repolarization abnormality. Troponin was minimally elevated. She was started on medication a blood pressure is much better control. She complains of some wooziness at current point time. But she is not having any chest pain or headaches. No symptoms suggestive of heart failure. No arrhythmias noted overnight on cardiac telemetry. Review of Systems Constitutional: Constitutional: Denies body ache(s), Denies chills, Denies fever(s) and Reports headache(s) Eyes: Eyes: Reports other visual disturbances ENT: Reports system reviewed and no additional complaints, except as documented and Reports headache(s) Cardiovascular: Cardiovascular: Reports chest pain at rest, Denies leg edema, Denies lightheadedness, Denies Loss of Consciousness, Denies palpitations and Reports dyspnea Respiratory: Respiratory: Reports no additional respiratory complaints and Reports dyspnea Gastrointestinal: Gastrointestinal: Reports no additional gastrointestinal complaints Genitourinary: Genitourinary: Reports no additional female genitourinary complaints Musculoskeletal: Musculoskeletal: Reports tingling Neurologic: Reports headache(s) and Reports tingling Psychiatric: Psychiatric: Reports no additional psychiatric complaints Endocrine: Endocrine: Denies palpitations PMFSH Past Medical History Medical History Diabetes mellitus with diabetic nephropathy Hypertension Hypertensive emergency Acute non-ST elevation myocardial infarction (NSTEMI) UTI (urinary tract infection) Anemia Bilateral hand numbness Bilateral hand pain HSV (herpes simplex virus) infection Smoking TIA (transient ischemic attack) DJD (degenerative joint disease) GERD (gastroesophageal reflux disease) Asthma Obesity Diabetes mellitus HTN (hypertension) Family History Family History Mother Heart disease Diabetes Hypertension Hyperlipidemia Fibromyalgia Father No problems noted. Brother No problems noted. Brother No problems noted. Brother No problems noted. Sister Deep vein thrombosis Son No problems noted. Son No problems noted. Daughter Hypertension Daughter No problems noted. Maternal Aunt History of breast cancer Surgical History Surgical History H/O cardiac catheterization Hx of tubal ligation Hx of cholecystectomy Hx of appendectomy Hx of section Social History Social History Household Members: Family Housing: Apartment Do you presently have visiting nurse or other home services: No Alcohol intake: never Patient Tobacco Use Status: Never used Tobacco Tobacco use type: Cigarette Cigarettes Per Day: 3 Smoked in Last 30 Days: No e-Cigarette/Vaping Use: Never Used Second Hand Smoke Exposure: No Use of substances other than those prescribed or required for medical reasons: No Currently Displaying Signs/Symptoms of Drug Intoxication Withdrawal: No Have you been hit, kicked, punched, or otherwise hurt by someone within the past year? If so, by whom?: No Do you feel safe in your current relationship?: Yes Is there a partner from a previous relationship who is making you feel unsafe now?: No Are you made to feel afraid or neglected: No Advance Directives: No Advance Directives Information Provided: Yes Do you have a plan to hurt others: No Plan Recently lost weight without trying: No Eating poorly because of decreased appetite: Yes Nutrition Risks: Difficulty swallowing Patient : No : No Poor oral hygiene: No service: No Current occupational status: employed Cognitive needs: No Hearing needs: No Vision needs: Yes (glasses) Meds Allergies Allergy/AdvReac Type Severity Reaction Status Date / Time Iodinated Contrast Media Allergy Intermediate Anaphylaxis Verified 08/19/24 12:04 Active Medications: Current Medications Acetaminophen (Acetaminophen 325 Mg Tablet) 975 mg PO Q6H PRN PRN Reason: Pain, Mild 1-3,fever,headache Last Admin: 08/19/24 22:04 Dose: 975 mg Amlodipine Besylate (Amlodipine Besylate 5 Mg Tablet) 5 mg PO DAILY MESHA; Protocol Last Admin: 08/20/24 08:18 Dose: 5 mg Aspirin (Aspirin 81 Mg Tab.Chew) 81 mg PO DAILY [facility] Last Admin: 08/20/24 08:19 Dose: 81 mg Calcium Carbonate (Calcium Carbonate 750 Mg Tab.Chew) 750 mg PO Q4H PRN PRN Reason: Heartburn Dextrose (Dextrose 50 % 25 Gm/50 Ml Syringe) 25 gm IVPUSH Q15M PRN; Protocol PRN Reason: per Hypoglycemia Standing Ord. Enoxaparin Sodium (Enoxaparin Sodium 40 Mg/0.4 Ml Syringe) 40 mg SUBCUT Q24H [facility] Last Admin: 08/20/24 05:51 Dose: 40 mg Glucose (Glucose Gel 15 Gm Gel..Gram.) 15 gm PO Q15M PRN; Protocol PRN Reason: per Hypoglycemia Standing Ord. Insulin Glargine (Insulin Glargine,Hum.Rec.Anlog 100 Unit/Ml 10 Ml Vial) 20 unit SUBCUT BEDTIME [facility] Last Admin: 08/19/24 21:25 Dose: 20 unit Insulin Human Lispro (Insulin Lispro 100 Unit/Ml 3 Ml Vial) 0 unit SUBCUT QIDACHS [facility]; Protocol Last Admin: 08/20/24 08:19 Dose: 6 unit Labetalol HCl (Labetalol Hcl 200 Mg Tablet) 200 mg PO BID [facility]; Protocol Last Admin: 08/20/24 08:18 Dose: 200 mg Magnesium Hydroxide (Milk Of Magnesia 30 Ml Oral.Susp) 30 ml PO DAILY PRN PRN Reason: Constipation Melatonin (Melatonin 3 Mg Tablet) 6 mg PO BEDTIME PRN PRN Reason: Insomnia Last Admin: 08/19/24 22:04 Dose: 6 mg Sodium Chloride (0.9 % Sodium Chloride Flush 3 Ml Syringe) 3 ml IVFLUSH QSHIFT [facility] Last Admin: 08/20/24 08:20 Dose: 3 ml Spironolactone (Spironolactone 25 Mg Tablet) 50 mg PO DAILY [facility]; Protocol Last Admin: 08/20/24 08:17 Dose: 50 mg Physical Exam Vital Signs: Vital Signs: Last Vital Signs Temp 97.1 F 08/20/24 07:48 Pulse 82 08/20/24 07:48 Resp 18 08/20/24 07:48 BP 140/79 H 08/20/24 07:48 Pulse Ox 98 08/20/24 07:48 O2 Del Method Room Air 08/20/24 07:48 BMI result Body Mass Index 35.1 Const: General: cooperative, comfortable, no acute distress, alert and awake Nutritional Appearance: obese Orientation/consciousness: patient oriented x3 HEENT: Head: Yes normocephalic and Yes atraumatic Neck: Neck: Yes trachea midline, Yes supple and Yes no JVD Resp: Effort & Inspection: normal respiratory effort Auscultation: clear to auscultation bilaterally Cardio: Jugular venous distension: no JVD Palpation: normal PMI Rate: regular rate Rhythm: regular rhythm Heart sounds: S1 normal heart sound present, S2 normal heart sound present, no click, no gallops and no murmurs GI: Auscultation: normal bowel sounds Skin: General skin exam: no rashes or lesions noted Neuro: General: patient oriented x3 and no focal motor deficits Extrem: General: Yes no clubbing, cyanosis or edema Objective Labs and Meds 08/20/24 06:51 08/20/24 06:51 Lab results: Laboratory Results - last 24 hr 08/19/24 08/19/24 08/19/24 12:28 14:53 14:57 WBC 9.6 RBC 5.76 H Hgb 12.6 Hct 39.8 MCV 69.1 L MCH 21.9 L MCHC 31.7 RDW 17.3 H Plt Count 293 MPV 10.9 Immature Gran % (Auto) 0.4 Neut % (Auto) 58.0 Lymph % (Auto) 27.5 [place] % (Auto) 9.6 Eos % (Auto) 4.1 H Baso % (Auto) 0.4 Lymph # (Auto) 2.6 [place] # (Auto) 0.9 Eos # (Auto) 0.4 Baso # (Auto) 0.0 Abs Immat Gran (auto) 0.04 H Absolute Neuts (auto) 5.6 Absolute Nucleated RBC 0.000 Nucleated RBC % (auto) 0.0 Sodium 135 Potassium 3.2 L Chloride 100 Carbon Dioxide 24 Anion Gap 14 BUN 10 Creatinine 0.90 Estim Creat Clear Calc 82.1 Estimated GFR > 60 POC Glucose 284 H Random Glucose 327 H Estimat Average Glucose Hemoglobin A1c % Calcium 9.3 Magnesium 1.5 L Total Bilirubin 0.5 AST 23 ALT 18 Alkaline Phosphatase 86 Troponin I High Sens 81.0 H* D 78.4 H* Total Protein 7.8 Albumin 4.1 Triglycerides Cholesterol LDL Cholesterol, Calc HDL Cholesterol Lipase 19 TSH 1.61 Urine Color Yellow Urine Appearance Clear Urine pH 6.5 Ur Specific [place] 1.020 Urine Protein 30 (1+) H Urine Glucose (UA) >=1000 H Urine Ketones Negative Urine Blood Negative Urine Nitrite Negative Ur Leukocyte Esterase Negative Urine RBC 0-2 Urine WBC 0-5 Ur Squamous Epith Cells 0-2 Urine Bacteria None Seen Hyaline Casts 0-2 08/19/24 08/20/24 08/20/24 21:20 01:58 03:00 WBC RBC Hgb Hct MCV MCH MCHC RDW Plt Count MPV Immature Gran % (Auto) Neut % (Auto) Lymph % (Auto) [place] % (Auto) Eos % (Auto) Baso % (Auto) Lymph # (Auto) [place] # (Auto) Eos # (Auto) Baso # (Auto) Abs Immat Gran (auto) Absolute Neuts (auto) Absolute Nucleated RBC Nucleated RBC % (auto) Sodium Potassium Chloride Carbon Dioxide Anion Gap BUN Creatinine Estim Creat Clear Calc Estimated GFR POC Glucose 417 H* 362 H* Random Glucose Estimat Average Glucose Hemoglobin A1c % Calcium Magnesium Total Bilirubin AST ALT Alkaline Phosphatase Troponin I High Sens 81.1 H* Total Protein Albumin Triglycerides Cholesterol LDL Cholesterol, Calc HDL Cholesterol Lipase TSH Urine Color Urine Appearance Urine pH Ur Specific [place] Urine Protein Urine Glucose (UA) Urine Ketones Urine Blood Urine Nitrite Ur Leukocyte Esterase Urine RBC Urine WBC Ur Squamous Epith Cells Urine Bacteria Hyaline Casts 08/20/24 08/20/24 06:51 07:32 WBC 9.2 RBC 5.08 Hgb 11.1 L Hct 35.9 L MCV 70.7 L MCH 21.9 L MCHC 30.9 L RDW 16.8 H Plt Count 258 MPV 11.2 Immature Gran % (Auto) 0.4 Neut % (Auto) 51.0 Lymph % (Auto) 34.8 [place] % (Auto) 9.9 Eos % (Auto) 3.4 Baso % (Auto) 0.5 Lymph # (Auto) 3.2 [place] # (Auto) 0.9 Eos # (Auto) 0.3 Baso # (Auto) 0.1 Abs Immat Gran (auto) 0.04 H Absolute Neuts (auto) 4.7 Absolute Nucleated RBC 0.000 Nucleated RBC % (auto) 0.0 Sodium 135 Potassium 3.3 Chloride 102 Carbon Dioxide 24 Anion Gap 12 BUN 14 Creatinine 0.68 Estim Creat Clear Calc 108.1 Estimated GFR > 60 POC Glucose 261 H Random Glucose 276 H Estimat Average Glucose 321 Hemoglobin A1c % 12.8 H Calcium 8.8 Magnesium 1.7 Total Bilirubin AST ALT Alkaline Phosphatase Troponin I High Sens Total Protein Albumin Triglycerides 114 Cholesterol 157 LDL Cholesterol, Calc 100 H HDL Cholesterol 35 L Lipase TSH Urine Color Urine Appearance Urine pH Ur Specific [place] Urine Protein Urine Glucose (UA) Urine Ketones Urine Blood Urine Nitrite Ur Leukocyte Esterase Urine RBC Urine WBC Ur Squamous Epith Cells Urine Bacteria Hyaline Casts Assessment and Plan (1) Hypertensive crisis: Status: Acute Hypertensive crisis in this young woman with multiple comorbidities including prior stroke because of noncompliance with medication, as per her due to insurance issues. I told her that this is a very dangerous situation she needs to be on top of this. She should get also case management involved in managing her insurance issues. At this point time her blood pressures normalized with institution medications. Will continue current medication including amlodipine and labetalol. Can consider angiotensin receptor blockers if there are no contraindications especially being diabetic and having vascular disease. She does have underlying significant hypertensive heart disease and remains at risk for progressive hypertensive heart disease and heart failure and this was discussed with her. Importance of management was discussed in details. (2) Elevated troponin: Status: Inactive Minimal but flat troponin elevation most likely related to subendocardial ischemia related to hypertensive crisis in the setting of hypertensive heart disease. She had normal coronary arteries by cardiac catheterization in June. Currently requires no further ischemic workup. Continue aggressive management of blood pressure. Will set up for outpatient follow-up. Thank you for allowing me to partake in his care. Will sign of the case Procedures Date of Service Date of Service: 08/20/24
--- NOTE | 2024-08-20 10:46 | MHC.CM.PN ---
HOMERO 08/20. Pt self-care, lives at home with others. Pt will arrange her own transport home at discharge. Insurance: Pt spoke with [employer] today, and states she will be reactivated with them within a few hours. PCP: Pt waiting to be assigned a new PCP, as her PCP retired (pt has a call out to the MD's office).
[2024-08-20 11:02] LABS: Glucose, Whole Blood 317 mg/dL (60-115)
[2024-08-20 11:11] VITALS: BP 129/66; PULSE 75; RESP 18; TEMP 36.7; O2SAT 97
--- NOTE | 2024-08-20 11:57 | PHA.MEDREC ---
Addendum entered by Bubba Kevin [facility] 08/20/24 12:26: Reviewed by [facility], will let provider know. Original Note: Pharmacy Consult ? Medication Reconciliation Pharmacy has completed the medication reconciliation. Spoke to patient to confirm med list. Patient states there is a long list of her medication and instructed me to call [facility]. [facility] any medications with them since January of 2024. Spoke to patient again and she states she should be taking Amlodipine 10 mg, aspirin 81,mg Atorvastatin 80 mg, Clopidogrel 75 mg, Cyclobenzaprine 10 mg, Trulicity 1.5 mg, Insulin Glargine 32 units, Insulin lispro per sliding scale, Lisinopril 20 mg, Metformin 1,000 mg and Spironolactone 50 mg, however she has been without insurance. Patient states she hasn't taken any of her medication in over 3 months. Will notify the doctor.
--- NOTE | 2024-08-20 13:30 | P.DS_ITS ---
DS: Providers Provider Date of Service: 08/20/24 Date of admission: 08/19/24 18:55 Date of discharge: 08/20/24 Primary care physician: Derrek Hollingsworth MD Consults: 08/19/24 19:40 Consult to Cardiology Routine Consulting Provider: [facility] Reason for consultation: Uncontrolled HTN, chest tightness, elevated troponin Has provider been notified: Yes DS: Diagnosis Discharge Diagnosis (1) Hypertensive crisis: Status: Acute (2) Elevated troponin: Status: Inactive (3) Uncontrolled type 2 diabetes mellitus with hyperglycemia: Status: Acute (4) Hypomagnesemia: Status: Acute (5) Hypokalemia: Status: Acute DS: Summary Hospital Course Hospital Course: From the history and physical by the admitting hospitalist, Tay Frey MD, 08/19/24: Amy Persaud is a very pleasant 43 years old woman with past medical history significant for essential hypertension, obesity, type 2 diabetes mellitus on insulin, and obstructive sleep apnea (her machine has not been sent yet) presen ts to the emergency department complaining of plethora of symptoms including palpitation, chest tightness, shortness on breath with deep inspiration, dizziness, blurry vision, lower abdominal discomfort, headache (pressure-like sensation in the back of her head), tingling sensation to all fingerstips and pressure-like sensation upon urinating. These symptoms started 3 days ago. She stated that she has not been taking any of her medications over the last month due to insurance problems. She did not report nausea, vomiting or diarrhea. She also denied cough, fever, chills, speech difficulty, walking difficulty or focal weakness. She denies urinary changes such as foul odor or bloody urine. Denied alcohol abuse, tobacco smoking or illicit drug use. Patient did not recall the name of home her medications except for metformin, Trulicity and insulin. In the ED, she was found to have elevated blood pressure (max 213/129, most recent 215/108), mild tachycardia and tachypnea. Oxygen saturation is 99% on room air. Blood workup showed no leukocytosis. Hemoglobin is normal as well as platelets, 293. There is mild hypokalemia of 3.2 and hypomagnesemia of 1.5. Glucose 284. Troponin came back elevated x2 (81.0 --> 78.4). LFTs and lipase are normal. Urinalysis showed no evidence of UTI or hematuria. CXR is negative. Head CT scan without contrast showed no acute abnormalities. ECG showed sinus tachycardia of 101 beats per minute, LVH changes with repolarization abnormalities and without ischemic changes (changes similar to previous EKGs). ED tx: Magnesium 2 g IV, KCl 40 mEq p.o. x1, KCl IV, amlodipine 10 mg p.o. (total), hydralazine 10 mg IV, diazepam 2.5 mg IV She was admitted to the hospitalist service with telemetry monitoring and Cardiology consultation. Blood pressure normalized with resumption of home medications. Troponins remained flat, likely representing subendocardial ischemia related to hypertensive crisis in the setting of hypertensive heart dis ease. She had normal coronary arteries by cardiac catheterization in June. Potassium and magnesium were repleted. A1c was noted to be 12.8, again likely reflecting noncompliance due to insurance issues. She fixed her insurance issue and [employer] was re-activated. She was given new prescriptions for all of her antihypertensives as well as her diabetes medications. The importance of strict control of blood pressure and blood glucose was counseled. Time Attestation Discharge Coordination Time (in mins): 35 Quality: Safe Use of Opioids Does Pt have an Active Cancer Diagnosis on the Problem List?: No Quality: Stroke Does the patient have a stroke diagnosis?: No Physical Exam Vital Signs: Vital Signs: Last Vital Signs Temp 98.1 F 08/20/24 11:11 Pulse 75 08/20/24 11:11 Resp 18 08/20/24 11:11 BP 129/66 08/20/24 11:11 Pulse Ox 97 08/20/24 11:11 O2 Del Method Room Air 08/20/24 11:11 BMI result Body Mass Index 35.1 Gen: in no acute distress HEENT: sclera anicteric, moist mucus membranes Neck: supple Lungs: clear to auscultation bilaterally Heart: regular rate and rhythm, no murmurs Abd: soft, non-tender, non-distended Ext: no edema Skin: warm/well-perfused Neuro: alert and oriented x3, no focal findings Psych: appropriate affect DS: Data Data Completed and Pending Completed studies during hospitalization [Text1]: Laboratory Results WBC 9.2 X10*3/uL (4.8-10.8) 08/20/24 06:51 RBC 5.08 X10*6/uL (4.20-5.50) 08/20/24 06:51 Hgb 11.1 g/dl (12.0-16.0) L 08/20/24 06:51 Hct 35.9 % (37.0-47.0) L 08/20/24 06:51 MCV 70.7 fL (80.0-98.0) L 08/20/24 06:51 MCH 21.9 pg (27.0-33.0) L 08/20/24 06:51 MCHC 30.9 g/dl (31.0-35.0) L 08/20/24 06:51 RDW 16.8 % (11.0-16.0) H 08/20/24 06:51 Plt Count 258 X10*3/uL (160-400) 08/20/24 06:51 MPV 11.2 fL (9.4-12.3) 08/20/24 06:51 Immature Gran % (Auto) 0.4 % (0.0-0.4) 08/20/24 06:51 Neut % (Auto) 51.0 % (45-73) 08/20/24 06:51 Lymph % (Auto) 34.8 % (20-40) 08/20/24 06:51 [place] % (Auto) 9.9 % (2-11) 08/20/24 06:51 Eos % (Auto) 3.4 % (0-4) 08/20/24 06:51 Baso % (Auto) 0.5 % (0-2) 08/20/24 06:51 Lymph # (Auto) 3.2 X10*3/uL (1.2-4.9) 08/20/24 06:51 [place] # (Auto) 0.9 X10*3/uL (0.1-1.2) 08/20/24 06:51 Eos # (Auto) 0.3 X10*3/uL (0.0-0.4) 08/20/24 06:51 Baso # (Auto) 0.1 X10*3/uL (0.0-0.2) 08/20/24 06:51 Abs Immat Gran (auto) 0.04 X10*3/uL (0.00-0.03) H 08/20/24 06:51 Absolute Neuts (auto) 4.7 x10*3/uL (2.0-8.3) 08/20/24 06:51 Absolute Nucleated RBC 0.000 X10*3/uL (0.0-0.012) 08/20/24 06:51 Nucleated RBC % (auto) 0.0 /100WBC (0.0-0.2) 08/20/24 06:51 Sodium 135 mmol/L (135-145) 08/20/24 06:51 Potassium 3.3 mmol/L (3.3-5.1) 08/20/24 06:51 Chloride 102 mmol/L (96-108) 08/20/24 06:51 Carbon Dioxide 24 mmol/L (22-29) 08/20/24 06:51 Anion Gap 12 (12-20) 08/20/24 06:51 BUN 14 mg/dL (9-16) 08/20/24 06:51 Creatinine 0.68 mg/dL (0.5-1.4) 08/20/24 06:51 Estim Creat Clear Calc 108.1 08/20/24 06:51 Estimated GFR > 60 08/20/24 06:51 POC Glucose 317 mg/dL (60-115) H 08/20/24 10:58 Random Glucose 276 mg/dL (60-115) H 08/20/24 06:51 Estimat Average Glucose 321 mg/dL 08/20/24 06:51 Hemoglobin A1c % 12.8 % (<6.0) H 08/20/24 06:51 Calcium 8.8 mg/dL (8.4-10.2) 08/20/24 06:51 Magnesium 1.7 mg/dL (1.6-2.6) 08/20/24 06:51 Total Bilirubin 0.5 mg/dL (0.0-1.0) 08/19/24 12:28 AST 23 U/L (5-31) 08/19/24 12:28 ALT 18 U/L (0-31) 08/19/24 12:28 Alkaline Phosphatase 86 U/L (39-117) 08/19/24 12:28 Troponin I High Sens 81.1 ng/L (<3.5-17.0) H* 08/20/24 03:00 Total Protein 7.8 g/dL (6.5-8.0) 08/19/24 12:28 Albumin 4.1 g/dL (3.5-5.0) 08/19/24 12:28 Triglycerides 114 mg/dL (<150) 08/20/24 06:51 Cholesterol 157 mg/dL (<200) 08/20/24 06:51 LDL Cholesterol, Calc 100 mg/dL (<100) H 08/20/24 06:51 HDL Cholesterol 35 mg/dL (>40) L 08/20/24 06:51 Lipase 19 U/L (8-78) 08/19/24 12:28 TSH 1.61 uIU/mL (0.32-4.0) 08/19/24 12:28 Urine Color Yellow 08/19/24 14:57 Urine Appearance Clear 08/19/24 14:57 Urine pH 6.5 (5.0-9.0) 08/19/24 14:57 Ur Specific [place] 1.020 (1.005-1.025) 08/19/24 14:57 Urine Protein 30 (1+) mg/dL (Neg-Trace) H 08/19/24 14:57 Urine Glucose (UA) >=1000 mg/dL (Negative) H 08/19/24 14:57 Urine Ketones Negative mg/dL (Negative) 08/19/24 14:57 Urine Blood Negative (Negative) 08/19/24 14:57 Urine Nitrite Negative (Negative) 08/19/24 14:57 Ur Leukocyte Esterase Negative (Negative) 08/19/24 14:57 Urine RBC 0-2 /HPF (0-2) 08/19/24 14:57 Urine WBC 0-5 /HPF (0-5) 08/19/24 14:57 Ur Squamous Epith Cells 0-2 /HPF (0-2) 08/19/24 14:57 Urine Bacteria None Seen (None Seen) 08/19/24 14:57 Hyaline Casts 0-2 /LPF (0-2) 08/19/24 14:57 Discharge Plan Discharge Patient Disposition: Home, Self-Care Discharge Diagnosis: hypertensive crisis uncontrolled type 2 diabetes Referrals: Derrek Hollingsworth MD [Primary Care Provider] - 1 Week Devang Flores MD [Physician] - 2 Weeks Discharge Medications: Continued (DME) nebulizers Misc See Rx Instructions .Route Qty: 1 0RF Rx Instructions: to use every 4 hours as needed for wheezing (DME) blood pressure monitor Kit See Rx Instructions .Route Qty: 1 0RF Rx Instructions: As directed (DME) pen needle, diabetic [Comfort EZ Pen [employer]] 32 gauge x 5/16 needle See Rx Instructions .Route Qty: 100 4RF Rx Instructions: As directed injects 4X/day (DME) FreeStyle [place] [facility] Rx Instructions .Route Qty: 1 0RF Rx Instructions: As directed (DME) Dexcom G7 Sensor Device See Rx Instructions .ROUTE .MEDSUPPLY Qty: 3 11RF Rx Instructions: As directed every ten days (DME) blood-glucose meter [FreeStyle [place]] Kit See Rx Instructions .ROUTE .MEDSUPPLY Qty: 1 0RF Rx Instructions: As directed diclofenac sodium 1 % gel 2 g topical QID Qty: 100 0RF atorvastatin 80 mg tablet 80 mg PO DAILY 90 Days Qty: 90 0RF lisinopril 20 mg tablet 20 mg PO DAILY 30 Days Qty: 90 6RF aspirin 81 mg tablet,delayed release (DR/EC) 81 mg PO DAILY 90 Days Qty: 90 8RF amlodipine 10 mg tablet 10 mg PO BEDTIME 90 Days Qty: 90 0RF metformin 1,000 mg tablet 1,000 mg PO BID Qty: 180 2RF insulin lispro [Humalog KwikPen Insulin] 100 unit/mL insulin pen See Rx Instructions subcut TID 30 Days Qty: 15 3RF Rx Instructions: 10-14 units tid before meals subcutaneously 3 times a day; insulin glargine [Lantus Solostar U-100 Insulin] 100 unit/mL (3 mL) insulin pen 32 unit subcut BID 90 Days Qty: 60 4RF albuterol sulfate 90 mcg/actuation aero powdr breath act w/sensor 2 inh inhalation Q4-6H PRN (Reason: shortness of breath or wheezing) Qty: 1 0RF Rx Instructions: May dispense medication equivalent accepted by patient's insurance fluticasone propion-salmeterol 115-21 mcg/actuation HFA aerosol inhaler 2 puff inhalation BID Qty: 12 5RF cyclobenzaprine 10 mg tablet 10 mg PO TID PRN (Reason: muscle spasm) Qty: 90 3RF (DME) FreeStyle [place]iquita 2 Sensor Kit See Rx Instructions .Route Qty: 2 4RF Rx Instructions: As directed change every 14 days albuterol sulfate 0.63 mg/3 mL solution for nebulization 0.63 mg inhalation Q4-6H PRN (Reason: shortness of breath or wheezing) Qty: 90 0RF Rx Instructions: May dispense medication equivalent accepted by patient's insurance (DME) Ketone Urine Test Strip See Rx Instructions .ROUTE .MEDSUPPLY Qty: 50 1RF Rx Instructions: As directed prn over 250, nausea, vomiting, illness tid (DME) blood-glucose meter [FreeStyle Lite Meter] Kit See Rx Instructions .Route Qty: 1 0RF Rx Instructions: As directed (DME) blood presure cuff large See Rx Instructions .Route .MEDSUPPLY Qty: 1 0RF Rx Instructions: As directed Changed spironolactone 50 mg tablet 50 mg PO DAILY Qty: 90 1RF Trulicity 1.5 mg/0.5 mL pen injector 1.5 mg subcut WE Qty: 4 0RF Discontinued clopidogrel 75 mg tablet 75 mg PO DAILY 42 Days Qty: 42 0RF Discharge Orders: Discharge Order (Routine); Ordered 08/20/24 Ordered By: Danny Neumann Diet: Diabetic diet Activity on Discharge: As tolerated Stand Alone Forms: Patient Portal Discharge page Print Language: Tajik Care Plan Goals: prevention of complications of diabetes and hypertension Health Concerns: hypertensive crisis uncontrolled type 2 diabetes Plan of Treatment: take medications as prescribed hypertension: lisinopril 20 mg daily PLUS amlodipine 10 mg daily PLUS spironolactone 50 mg daily diabetes: Lantus 32 units twice daily PLUS metformin 1000 mg twice daily PLUS Trulicity 1.5 mg weekly also, aspirin for stroke prevention Please follow up with your primary care doctor within 1 week. Return to the hospital if you experience recurrent or worsening symptoms. Assessment: See Discharge Summary. Patient Instructions: Mediterranean Diet (DC)
--- NOTE | 2024-08-20 15:53 | MHC.CM.PN ---
Pt is medically cleared for discharge home self-care, she will arrange her own transport home.
== END 2024-08-20 15:21 | disposition home or self-care (01) ==
LOC: HO.ED 16:23 → HO.EDOVER 18:59 → HO.IMC 20:26
PROVIDERS: Emergency Medicine; Physician Assistant; Admitting Provider Internal Medicine; Emergency Provider Emergency Medicine; PCP Internal Medicine; Visit Provider Family Medicine
DX: I16.9 Hypertensive crisis, unspecified (principal); E11.21 Type 2 diabetes mellitus with diabetic nephropathy; E11.65 Type 2 diabetes mellitus with hyperglycemia; E83.42 Hypomagnesemia; E87.6 Hypokalemia; R53.1 Weakness; R06.02 Shortness of breath; R20.2 Paresthesia of skin; R00.0 Tachycardia, unspecified; H53.8 Other visual disturbances; I10 Essential (primary) hypertension; K21.9 Gastro-esophageal reflux disease without esophagitis; J45.909 Unspecified asthma, uncomplicated; E66.9 Obesity, unspecified; G47.33 Obstructive sleep apnea (adult) (pediatric); Z79.4 Long term (current) use of insulin; Z79.899 Other long term (current) drug therapy; Z68.35 Body mass index [BMI] 35.0-35.9, adult; Z99.89 Dependence on other enabling machines and devices
CPT/HCPCS: 36415; 70450; 71045; 80048; 80053; 80061; 81001; 82947; 83036; 83690; 83735; 84443; 84484; 85025; 93005; 93306; 96365; 96366; 96368; 96372; 96375; 99222; 99285; J0360; J1650; J1920; J3360; J3475; J3480; Q9957

== ENCOUNTER → 2024-08-19 12:03 | Outpatient (BNV) | payer OTHER, MEDICAID, SELFPAY | PROVIDERS: Admitting Provider Internal Medicine; Emergency Provider Emergency Medicine; PCP Internal Medicine; Visit Provider Internal Medicine Cardiovascular Disease | DX: I51.7 Cardiomegaly (principal); R00.0 Tachycardia, unspecified | CPT/HCPCS: 93010 ==

== ENCOUNTER → 2024-08-19 16:07 | Outpatient (BNV) | payer OTHER, MEDICAID, SELFPAY | PROVIDERS: Emergency Provider Emergency Medicine; PCP Internal Medicine; Visit Provider Radiology Diagnostic Radiology | DX: R90.82 White matter disease, unspecified (principal); I16.0 Hypertensive urgency | CPT/HCPCS: 70450; 71045 ==

== ENCOUNTER 2024-08-19 18:55 | Outpatient (BNV) | payer MEDICAID, SELFPAY | END 2024-08-20 07:00 | PROVIDERS: Admitting Provider Internal Medicine; Emergency Provider Emergency Medicine; PCP Internal Medicine; Visit Provider Internal Medicine Cardiovascular Disease | DX: I51.7 Cardiomegaly (principal) | CPT/HCPCS: 93010; 93306 ==

== ENCOUNTER → 2024-08-19 18:55 | Outpatient (BNV) | payer OTHER, MEDICAID, SELFPAY | PROVIDERS: Admitting Provider Internal Medicine; Emergency Provider Emergency Medicine; PCP Internal Medicine; Visit Provider Internal Medicine Cardiovascular Disease | DX: I16.9 Hypertensive crisis, unspecified (principal); R77.8 Other specified abnormalities of plasma proteins | CPT/HCPCS: 99222 ==

== ENCOUNTER → 2024-08-19 18:55 | Outpatient (BNV) | payer OTHER, MEDICAID, SELFPAY | PROVIDERS: Admitting Provider Internal Medicine; Emergency Provider Emergency Medicine; PCP Internal Medicine; Visit Provider Internal Medicine | DX: I16.9 Hypertensive crisis, unspecified (principal); R77.8 Other specified abnormalities of plasma proteins; E11.65 Type 2 diabetes mellitus with hyperglycemia; E83.42 Hypomagnesemia; E87.6 Hypokalemia; E11.21 Type 2 diabetes mellitus with diabetic nephropathy | CPT/HCPCS: 99223; 99239 ==

== ENCOUNTER 2024-08-30 16:27 | Outpatient (AMB) | payer OTHER, SELFPAY ==
--- NOTE | 2024-08-30 16:31 | MHC.PC.OV ---
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: No Accompanied by: Self / Same As Patient Allergies Iodinated Contrast Media Allergy (Intermediate, Verified 08/30/24 16:32) Anaphylaxis Tobacco use date assessed: 08/30/24 Dental Screening Dental Screen Date: 08/30/24 Did you have a dental visit in the last 12 months?: No Did you have a dental problem in the last 6 months where you did not have access to dental care?: No Was dental information given to patient?: No HPI HPI Comments History of Present Illness Details 43 Y/O Female patient with Pmhx significant for essential hypertension, obesity, type 2 diabetes mellitus on insulin, and obstructive sleep apnea. Pt was admitted at [facility] [place] 08[place] - 08/20 for evaluation and treatment of elevated blood pressure (max 213/129, most recent 215/108), and mild tachycardia and tachypnea. She has not been taking any of her medications over the last month due to insurance problems. She fixed her insurance issues and [employer] was re-activated. In the Hospital her A1C was noted to be 12.8, again likely reflecting noncompliance due to insurance issues. Urinalysis was negative for UTI and hematuria. CXR was negative. Head CT scan without contrast showed no acute abnormalities. She was given new prescriptions for all of her antihypertensives as well as her diabetes medications upon hospital discharge. She was counseled on the importance of strict control of blood pressure and blood glucose. Today reports that she never received any medications or Sensor from Pharmacy -Not sure why, but it could so be insurance coverage issues. [facility] Medical History (Updated 08/30/24 @ 18:06 by Rose Witt NP) Hypertensive emergency Diabetes mellitus with diabetic nephropathy Hypertension Acute non-ST elevation myocardial infarction (NSTEMI) UTI (urinary tract infection) Anemia Bilateral hand numbness Bilateral hand pain HSV (herpes simplex virus) infection Smoking TIA (transient ischemic attack) DJD (degenerative joint disease) GERD (gastroesophageal reflux disease) Asthma Obesity Diabetes mellitus HTN (hypertension) Surgical History H/O cardiac catheterization Hx of tubal ligation Hx of cholecystectomy Hx of appendectomy Hx of section Family History Mother Heart disease Diabetes Hypertension Hyperlipidemia Fibromyalgia Father No problems noted. Brother No problems noted. Brother No problems noted. Brother No problems noted. Sister Deep vein thrombosis Son No problems noted. Son No problems noted. Daughter Hypertension Daughter No problems noted. Maternal Aunt History of breast cancer Social History Household Members: Family Housing: Apartment Do you presently have visiting nurse or other home services: No Alcohol intake: never Patient Tobacco Use Status: Never used Tobacco Tobacco use type: Cigarette Cigarettes Per Day: 3 e-Cigarette/Vaping Use: Never Used Second Hand Smoke Exposure: No service: No Current occupational status: employed Cognitive needs: No Hearing needs: No Vision needs: Yes (glasses) Female Reproductive History Menstrual Age of Menarche: 12 Questionnaire PHQ-9 Over the last 2 weeks, how often have you been bothered by any of the following problems? 1. Little interest or pleasure in doing things: several days 2. Feeling down, depressed, or hopeless: several days 3. Trouble falling or staying asleep, or sleeping too much: nearly every day 4. Feeling tired or having little energy: nearly every day 5. Poor appetite or overeating: several days 6. Feeling bad about yourself - or that you are a failure or have let yourself or your family down: not at all 7. Trouble concentrating on things, such as reading the newspaper or watching television: several days 8. Moving or speaking so slowly that other people could have noticed. Or the opposite - being so fidgety or restless that you have been moving around a lot more than usual: several days 9. Thoughts that you would be better off or of hurting yourself in some way: not at all Total score: 11 Source: Developed by Drs. Willian Nassar, Monique Clark, Aaron Ortega and colleagues, with an educational walter from [employer]. Thrive Questionnaire Date Thrive assessed: 08/30/24 I am a: Patient What is your living situation today?: I have a place to live, but I am worried about losing it in the future Within the past 12 months, did the food you bought not last and you didn't have the money to get more?: I choose not to answer this question Within the past 12 months, did you worry whether your food would run out before you got money to buy more?: I choose not to answer this question Do you have trouble paying for medicines?: Yes Do you have trouble getting transportation to medical appointments?: I choose not to answer this question Do you have trouble paying your heating and electricity bill?: No Do you have trouble taking care of your child, family member or friend?: No Do you have trouble with day-to-day activities such as bathing, preparing meals, shopping, managing finances, etc.?: No Are you currently unemployed and looking for a job?: No Are you interested in more education?: No Please select the resources that you would like help with: None Currently or been in a relationship where the following occur: No concerns reported THRIVE Score: 1 AUDIT C Alcohol Use Questionnaire (AUDIT-C) 1. How often do you have a drink containing alcohol?: Monthly or less 2. How many drinks containing alcohol do you have on a typical day when you are drinking?: 1 or 2 3. How often do you have six or more drinks on one occasion?: Less than monthly Total Score: 2 VIKRAM-7 AMB Questionnaire VIKRAM-7 Date VIKRAM - 7 assessed: 08/30/24 Feeling nervous, anxious, or on edge: 1 = Several days Not being able to stop or control worryin = Several days Worrying too much about different things: 1 = Several days Trouble relaxin = Several days Being so restless that it is hard to sit still: 1 = Several days Becoming easily annoyed or irritable: 1 = Several days Feeling afraid as if something awful might happen: 0 = Not at all Total VIKRAM-7 score (0-4 normal; 5-9 mild; 10-14 moderate; 15-21 severe): 6 Source: Developed by Drs. Willian Nassar, Monique Clark, Aaron Ortega and colleagues, with an educational walter from [employer]. Review of Systems Const All systems reviewed & are unremarkable except as noted in HPI and below Physical exam (Primary Care) Vital Signs: Last Vital Signs Pulse 93 08/30/24 16:32 BP 164/104 H 08/30/24 16:32 Pulse Ox 98 08/30/24 16:32 Oxygen Delivery Method Room Air 08/30/24 16:32 BMI result Body Mass Index 33.9 Tobacco/Smoking Status: Tobacco use Status Tobacco use date assessed 08/30/24 08/30/24 16:38 Patient Tobacco Use Status Never used Tobacco 08/30/24 16:38 Tobacco use type Cigarette 08/30/24 16:38 e-Cigarette/Vaping Use Never Used 08/30/24 16:38 PHQ-9: PHQ-9 Score PHQ-9: Total score 11 08/30/24 16:38 Thrive Assessment: Date of Thrive Assessment Date Thrive assessed 08/30/24 08/30/24 16:38 Currently or been in a relationship where the following occur: No concerns reported Const General: no acute distress Nutritional Appearance: obese Orientation/consciousness: patient oriented x3 Resp Effort & Inspection: normal respiratory effort Auscultation: clear to auscultation bilaterally Cardio Rhythm: regular rhythm Heart sounds: S1 normal heart sound present and S2 normal heart sound present Neuro General: patient oriented x3 Coding Level of Care Code Est Pt Level 4 (65787) Diagnoses Uncontrolled type 2 diabetes mellitus with hyperglycemia E11.65 Hypertensive emergency I16.1 Bilateral hand numbness R20.0 Time Spent (min) 20 Assessment & Plan Assessment & Plan (1) Uncontrolled type 2 diabetes mellitus with hyperglycemia: Code(s): E11.65 - Type 2 diabetes mellitus with hyperglycemia Category: Medical Plan: Lantus 32 units twice daily PLUS metformin 1000 mg twice daily PLUS Trulicity 1.5 mg weekly. Counseled the importance of Medication compliance to manage her disease process. Directed Patient to call pharmacy and find out why she did not receive her Sensor and Medications. Advised to call the clinic Monday (2) Hypertensive emergency: Code(s): I16.1 - Hypertensive emergency Category: Medical Plan: Stable Take lisinopril 40 mg daily (2 tabs of 20 mg = 40 mg) PLUS amlodipine 10 mg daily PLUS spironolactone 50 mg daily (3) Bilateral hand numbness: Code(s): R20.0 - Anesthesia of skin Category: Medical Plan: Counseled the importance of Medication compliance to manage her disease process. A1C 12%.
[2024-08-30 16:32] VITALS: BP 164/104; PULSE 93; O2SAT 98; BMI 33.9
== END 2024-08-30 17:14 | disposition home or self-care (01) ==
LOC: HO.HMCH 16:28
PROVIDERS: PCP Internal Medicine; Visit Provider Nurse Practitioner Family
DX: E11.65 Type 2 diabetes mellitus with hyperglycemia (principal); I16.1 Hypertensive emergency; R20.0 Anesthesia of skin

== ENCOUNTER → 2024-08-30 16:27 | Outpatient (BNVA) | payer OTHER, SELFPAY | PROVIDERS: PCP Internal Medicine; Visit Provider Nurse Practitioner Family | DX: I10 Essential (primary) hypertension (principal); E66.9 Obesity, unspecified; G47.33 Obstructive sleep apnea (adult) (pediatric); E11.65 Type 2 diabetes mellitus with hyperglycemia; I16.1 Hypertensive emergency; R20.0 Anesthesia of skin; Z68.33 Body mass index [BMI] 33.0-33.9, adult; Z79.4 Long term (current) use of insulin | CPT/HCPCS: 99212 ==

== ENCOUNTER → 2024-09-11 12:46 | Outpatient (REF) | payer OTHER, SELFPAY ==
--- NOTE | 2024-09-11 12:50 | CA_ITS ---
Transthoracic Echocardiogram Limited Patient (Last, First, Middle): Amy Persaud, Gender: Female Date of : 1980 Age: 43 Procedure Date: 09/11/2024 Procedure Type: Transthoracic Echocardiogram Limited Location: OP Height: 157.48 cm Weight: 84.82 kg BSA: 1.86 m2 Heart Rate: bpm BP: 122 / 80 mmHg Bone Drier Operator: Referring MD: Devang Flores MD Kitchen Runner: Devang Flores MD Symptoms: I63.9 - Cerebral infarction, unspecified Study Quality: Adequate ECG Rhythm: Sinus Conclusions: - No evidence of PFO Findings Atria There is no evidence of interatrial shunt by agitated saline. Measurements 2D Linear Measurements IVSd: 1.46 0.6-0.9/0.6-1.0 cm LVIDd: 4.58 3.9-5.3/4.2-5.9 cm LVIDd Index: 2.46 2.4-3.2/2.2-3.1 cm/m2 LVIDs: 3.22 2.0-3.6 cm LVPWd: 1.43 0.7-1.1 cm LV Mass: 333.59 67-162/88-224 g LV Mass Index: 179.35 43-95/49-115 g/m2 2D Systolic Function EF 4C: 49.70 >55% EF 2C: 50.50 >55% Mitral Valve MV Pk E: 0.85 MV PK A: 1.01 MV Decel Time: 155.00 E/A: 0.80 E'Lateral: 3.48 E'Medial: 2.94 E/E' Med: 29.00 E/E' Lat: 24.50 PHT: 45.00 MVA PHT: 4.89 Decel [place]: 5.51 Diastolic Function MV Pk E: 0.85 MV Pk A: 1.01 E/A: 0.80 E'Medial: 2.94 E/E' Med: 29.00 E' Laterial: 3.48 E/E' Lat: 24.50 Updated in Other Vendor System with Status of Final Devang Flores MD electronically signed on 09/11/2024 2:41:31 PM with status of Final
--- OUTSIDE RECORDS SUMMARY | 2024-09-11 14:37 | XMS_ITS | Clinical Summary ---
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 Name Role Phone Unavailable Primary Care Provider Unavailabl e Social History Tobacco Use Types Packs/Day Years Used Date Smoking Tobacco: Never Assessed Comments Unknown Sex and Gender Information Value Date Recorded Sex Assigned at Female 07/03/2023 12:18 PM EDT Legal Sex Female 4:16 PM EDT Gender Identity Female 07/03/2023 12:18 PM EDT Sexual Orientation Straight 07/03/2023 12 :18 PM EDT Plan of Treatment Health Maintenance Due Date Last Done Comments Depression Screening 1979 HIV Screening 1979 Lipid Panel 1979 SDOH Screening 1979 Disability Screening 1979 Alcohol/Substance Use Screening 1991 Tobacco Screening 1991 Family Planning (PISQ) 09/12/1994 Hepatitis C Screening 09/12/1997 Pap Smear 09/12/2000 Cervical Cancer Screening 09/12/2009 HPV/Cotest 09/12/2009 Hepatitis B Vaccines (3 of 3 - 19+ 3-dose series) 03/13/2015 10/17/2014, 09/11/2014 Mammogram 2019 COVID-19 Vaccine ( - season) 2023 12/10/2021, 05/14/2021, 11/18/2020 DTaP/Tdap/Td Vaccines (2 - Td or Tdap) 09/11/2024 09/11/2014 Influenza Vaccine (Season Ended) 2024 12/22/2021, 05/14/2021, 12/27/2017, Additional history exists Zoster Vaccines (1 of 2) 09/12/2029 RSV Patients and Patients Aged 60 years or older (1 - 1-dose 75+ series) 09/12/2054 HIB Vaccines Aged Out No longer eligi ble based on patient's age to complete this topic HPV Vaccines Aged Out No longer eligi ble based on patient's age to complete this topic Hepatitis A Vaccines Aged Out No long er eligible based on patient's age to complete this topic IPV Vaccines Aged Out No longer eligi ble based on patient's age to complete this topic Meningococcal B Vaccine Aged Out No l onger eligible based on patient's age to complete this topic Meningococcal Vaccine Aged Out No coco jackie eligible based on patient's age to complete this topic Pneumococcal Vaccine: Pediatrics (0 to 5 Years) and At-Risk Patients (6 to 49) Years Aged Out No longer eligible based on patient's age to complete this topic RSV under 20 months Aged Out No longe r eligible based on patient's age to complete this topic Rotavirus Vaccines Aged Out No longer eligible based on patient's age to complete this topic
== END ==
LOC: HO.CARD 12:46
PROVIDERS: Visit Provider Internal Medicine Cardiovascular Disease
DX: I51.7 Cardiomegaly (principal); I63.9 Cerebral infarction, unspecified; I16.9 Hypertensive crisis, unspecified
CPT/HCPCS: 93308

== ENCOUNTER → 2024-09-11 12:50 | Outpatient (BNV) | payer MEDICAID, SELFPAY | PROVIDERS: Visit Provider Internal Medicine Cardiovascular Disease | DX: I63.9 Cerebral infarction, unspecified (principal) | CPT/HCPCS: 93308 ==

== ENCOUNTER 2024-09-17 09:37 | Outpatient (AMB) | payer MEDICAID, SELFPAY ==
--- NOTE | 2024-09-17 09:45 | MHC.OFFVIS ---
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: No Allergies Iodinated Contrast Media Allergy (Intermediate, Verified 09/17/24 09:48) Anaphylaxis Medication List - Last Reconciled 09/17/24 by RAMILA Chen acetone (urine) test (Ketone Urine Test strips) As directed prn over 250, nausea, vomiting, illness tid albuterol sulfate 90 mcg/actuation 2 inhalations inhalation Q4-6H PRN albuterol sulfate 0.63 mg (3 mL) inhalation Q4-6H PRN amlodipine 10 mg PO BEDTIME 90 days aspirin 81 mg PO DAILY 90 days atorvastatin 80 mg PO DAILY 90 days blood pressure monitor As directed [blood presure cuff As directed] blood-glucose meter (FreeStyle [place] kit) As directed blood-glucose meter (FreeStyle Lite Meter kit) As directed blood-glucose sensor (Fengguo G7 Sensor device) As directed every ten days cyclobenzaprine 10 mg PO TID PRN diclofenac sodium 1% 2 grams topical QID dulaglutide (Trulicity) 1.5 mg (0.5 mL) subcut WE flash glucose scanning reader ([place] MedicalStyle Chiquita 2 [place]) As directed flash glucose sensor (FreeStyle Chiquita 2 Sensor kit) As directed change every 14 days fluticasone propion-salmeterol 115-21 mcg/actuation 2 puffs inhalation BID insulin glargine (Lantus Solostar U-100 Insulin) 32 units (0.32 mL) subcut BID 90 days insulin lispro (Humalog KwikPen (U-100) Insulin) 10-14 units tid before meals subcutaneously 3 times a day; 30 days lisinopril 20 mg PO DAILY 30 days metformin 1,000 mg PO BID nebulizers to use every 4 hours as needed for wheezing pen needle, diabetic (Comfort EZ Pen [place]) As directed injects 4X/day spironolactone 50 mg PO DAILY HPI HPI 1 mth s/p [facility] / echo NS: Details: Gail is a 44-year-old female with past medical history of hypertension, diabetes, hyperlipidemia, obesity, CVA, LVH, severe sleep apnea which is currently untreated who was recently admitted to [facility] with uncontrolled high blood pressure, max 213/129. Troponin mildly elevated, flat. She had not been taking her medications for the last month due to insurance issues. She was managed medically and continued on her prior antihypertensives on discharge. Today she reports that she has been doing well since her hospital discharge. She tells me she takes her amlodipine, lisinopril as directed. The Aldactone is supposed to be b.i.d. but she takes it only once daily. She reports getting fatigued if she takes all her medicines at once. She did not take any medications prior to this appointment today because she was running late. 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 She has been busy with work and caring for her children. She has no concerning symptoms. She denies chest pains, shortness of breath, heart palpitations, headaches, leg edema. She tells me that she has been waiting for a CPAP mask for over a year. [facility] Medical History Hypertensive emergency Diabetes mellitus with diabetic nephropathy Hypertension Acute non-ST elevation myocardial infarction (NSTEMI) UTI (urinary tract infection) Anemia Bilateral hand numbness Bilateral hand pain HSV (herpes simplex virus) infection Smoking TIA (transient ischemic attack) DJD (degenerative joint disease) GERD (gastroesophageal reflux disease) Asthma Obesity Diabetes mellitus HTN (hypertension) Surgical History H/O cardiac catheterization Hx of tubal ligation Hx of cholecystectomy Hx of appendectomy Hx of section Family History Mother Heart disease Diabetes Hypertension Hyperlipidemia Fibromyalgia Father No problems noted. Brother No problems noted. Brother No problems noted. Brother No problems noted. Sister Deep vein thrombosis Son No problems noted. Son No problems noted. Daughter Hypertension Daughter No problems noted. Maternal Aunt History of breast cancer Social History Household Members: Family Housing: Apartment Do you presently have visiting nurse or other home services: No Alcohol intake: never Patient Tobacco Use Status: Never used Tobacco Tobacco use type: Cigarette Cigarettes Per Day: 3 e-Cigarette/Vaping Use: Never Used Second Hand Smoke Exposure: No service: No Current occupational status: employed Cognitive needs: No Hearing needs: No Vision needs: Yes (glasses) Female Reproductive History Menstrual Age of Menarche: 12 Review of Systems Const All systems reviewed & are unremarkable except as noted in HPI and below Reports fatigue ENT Denies dizziness Card Denies chest pain, Denies chest pain at rest, Denies chest pain with activity, Denies rapid heart rate, Denies pedal edema, Denies edema, Denies leg edema, Denies lightheadedness, Denies palpitations, Denies dyspnea, Denies dyspnea on exertion and Denies orthopnea Resp Denies cough, Denies dyspnea and Denies dyspnea on exertion GI Denies hematochezia and Denies change in stool character Musc Denies abnormal gait, Denies limited range of motion, Denies muscle cramps, Denies muscle weakness, Denies numbness, Denies radiating pain into limb, Denies stiffness and Denies tingling Neuro Denies abnormal gait, Denies dizziness, Denies numbness and Denies tingling Endo Reports fatigue and Denies palpitations Physical Exam Vital Signs: Last Vital Signs Pulse 98 09/17/24 09:46 BP 180/110 H 09/17/24 09:46 BMI result Body Mass Index 33.9 Const General: cooperative, healthy appearing, comfortable and no acute distress Orientation/consciousness: patient oriented x3 Neck Neck: Yes normal visual inspection Resp Effort & Inspection: normal respiratory effort Auscultation: clear to auscultation bilaterally, no rales, no rhonchi and no wheezes Cardio Rate: regular rate Rhythm: regular rhythm Heart sounds: S1 normal heart sound present, S2 normal heart sound present, no gallops, no murmurs and no rubs Neuro General: patient oriented x3 Extrem General: Yes normal to inspection, No no pedal edema and No calf tenderness Psych Appearance: grossly normal Mental Status: mental status grossly normal Speech and movement: Normal speech and movement present Assessment & Plan Assessment & Plan (1) Uncontrolled hypertension: Code(s): I10 - Essential (primary) hypertension Category: Medical Plan: History of hypertension, uncontrolled at times with issues of noncompliance. Most recent echocardiogram 08/20/2024 shows EF 65-70%, grade 2 diastolic dysfunction severe LVH. She did have cardiac catheterization 07/20/2021 showing normal coronary arteries. She was recently admitted to [facility] with hypertensive emergency after not taking medications for 1 month insurance issues. She has since been restarted on antihypertensives and follows with Nephrology. Her blood pressure is elevated today and she tells me she did not take meds prior to this visit. She is also taking spironolactone only once daily. We discussed med management and dividing her meds throughout the day to help limit the side effect of reported fatigue. The strict importance of med compliance and risk of uncontrolled hypertension reviewed with her. The importance of sleep apnea treatment discussed. No med changes made at this time beyond encouraging spironolactone b.i.d. as directed by Nephrology. Emergency care if she develops concerning symptoms of chest pain, headache, vision change. Reviewed low-salt diet. Cardiology follow-up 3-4 months, sooner if needed (2) Abnormal EKG: Code(s): R94.31 - Abnormal electrocardiogram [ECG] [EKG] Category: Medical Plan: EKG with repolarization abnormalities consistent with LVH. She is known to have normal coronary arteries (3) LVH (left ventricular hypertrophy): Code(s): I51.7 - Cardiomegaly Category: Medical Plan: Severe LVH related to hypertension. Reviewed this finding with her using charts in room in the importance of strict blood pressure control discussed. (4) Severe sleep apnea: Code(s): G47.30 - Sleep apnea, unspecified Category: Medical Plan: Sleep study done 12/28/2022 showing severe sleep apnea. Sleep study with CPAP tried titration previously ordered however not completed for unclear reason. Reviewed with pulmonology and patient will need a repeat sleep study, ordered. Referral made to pulmonology for treatment of sleep apnea. It is essential that sleep apnea is treated to aid with hypertension control. (5) H/O cardiac catheterization: Comment: 07/20/2021 showing normal coronary arteries Code(s): Z98.890 - Other specified postprocedural states Category: Surgical Plan: As above Plan Time spent on chart review, documentation, interviewing and assessment Orders: Orders RT PSG in-lab sleep study Today G47.30 - Sleep apnea, unspecified Referrals Pulmonology Referral G47.30 - Sleep apnea, unspecified Coding Level of Care Code Est Pt Level 4 (78905) Complex EM visit Add On G2211 Diagnoses Uncontrolled hypertension I10 Abnormal EKG R94.31 LVH (left ventricular hypertrophy) I51.7 Severe sleep apnea G47.30 H/O cardiac catheterization Z98.890 Time Spent (min) 32
[2024-09-17 09:46] VITALS: BP 180/110; PULSE 98; BMI 33.9
--- OUTSIDE RECORDS SUMMARY | 2024-09-17 10:26 | XMS_ITS | Clinical Summary ---
Author Organization [employer] Address [address] [facility] [address] [place] [address] Care Team Providers Care Histologic Aide Name Role Phone Unavailable Primary Care Provider [...] Health Maintenance Due Date Last Done Comments CT Colonography 1979 Colonoscopy 1979 Colorectal Cancer Screening 1979 Depression Screening 1979 FIT DNA/Cologuard 1979 FIT 1979 FOBT 1979 HIV Screening 1979 Lipid Panel 1979 SDOH Screening 1979 Sigmoidoscopy 1979 Disability Screening 1979 Alcohol/Substance Use Screening 1991 Tobacco Screening 1991 Family Planning (PISQ) 09/12/1994 Hepatitis C Screening 09/12/1997 Pap Smear 09/12/2000 Cervical Cancer Screening 09/12/2009 HPV/Cotest 09/12/2009 Hepatitis B Vaccines (3 of 3 - 19+ 3-dose series) 03/13/2015 10/17/2014, 09/11/2014 Mammogram 2019 COVID-19 Vaccine ( season) 2023 12/10/2021, 05/14/2021, 11/18/2020 DTaP/Tdap/Td Vaccines [...]
== END 2024-09-17 11:30 | disposition home or self-care (01) ==
LOC: HO.HCS 09:38
PROVIDERS: PCP Internal Medicine; Visit Provider Nurse Practitioner Family
DX: I10 Essential (primary) hypertension (principal); R94.31 Abnormal electrocardiogram [ECG] [EKG]; I51.7 Cardiomegaly; G47.30 Sleep apnea, unspecified; Z98.890 Other specified postprocedural states
CPT/HCPCS: 99214

== ENCOUNTER → 2024-09-17 09:37 | Outpatient (BNVA) | payer OTHER, SELFPAY | PROVIDERS: PCP Internal Medicine; Visit Provider Nurse Practitioner Family | DX: I10 Essential (primary) hypertension (principal); R94.31 Abnormal electrocardiogram [ECG] [EKG]; I51.7 Cardiomegaly; G47.30 Sleep apnea, unspecified; Z98.890 Other specified postprocedural states | CPT/HCPCS: 99212 ==

== ENCOUNTER → 2024-09-19 14:42 | Outpatient (BNVA) | payer OTHER, SELFPAY | PROVIDERS: PCP Internal Medicine | DX: I10 Essential (primary) hypertension (principal); E11.8 Type 2 diabetes mellitus with unspecified complications | CPT/HCPCS: 82947; 99212 ==

== ENCOUNTER 2024-09-19 14:56 | Outpatient (AMB) | payer MEDICAID, SELFPAY ==
--- NOTE | 2024-09-19 08:12 | A.OFFVIS_ITS ---
Vital Signs 09/19/24 15:00 Height 5 ft 2 in Weight 191 lb 12.835 oz BMI 35.1 BP 166/108 H Blood Pressure Location Rt brachial Position Sitting Pulse 96 Pulse Source Pulse Oximeter Pulse Oximetry (%) 98 Oxygen Delivery Method Room Air Intake Visit Reasons: DMT2 Follow-Up Intake Note: Patient presents today for a follow-up on Type 2 Diabetes Mellitus: Last Diabetic eye exam was on: DUE Last Podiatry exam was on: Patient does not see a Pulp Screen Operator Most recent HbA1c: 12.8%, 08/20/2024 Random Glucose: 223 mg/dL Agency Trainer Required: No Accompanied by: Self / Same As Patient Allergies Iodinated Contrast Media Allergy (Intermediate, Verified 09/17/24 09:48) Anaphylaxis HPI Comments Details: 44 YO F who is seen in f/u for T2DM. She was last seen by myself 01/01/25 at which time Lantus insulin was increased to 30 units bid. She has been seen by Kavita Ricardo CDE several times for sensor training and pre pump education for which she needs additional visits. She was last seen by CDE summer 2023. I held off on switching to Tresiba as she was planning on going on a pump and this can be a difficult insulin to use for backup pump failure as it lasts up to 48 hours. Unfortunately we have not seen the patient since the fall. She did lose her insurance for several months and was completely off insulin. Most recent A1C 09/19/24 12.8%. She has a longstanding history of poorly controlled diabetes Initially diagnosed with T2DM 2018, started on insulin 02/16 when she started with [facility]. Hadn't seen Endo in the past. Was initially started on treatment with metformin at time of diagnosis. Current regimen: Lantus 30 units twice daily Humalog 10 units three times per day Trulicity 1.5 mg weekly metformin 1000 mg BID Dexcom average glucose: 229 14 day continuous glucose monitor report reviewed Days with CGM data 70 % TIme in ranges: 26 % very high (above 250) 66 % high ?(181-250) 8 % in range ?(70-180] 0 % low (69-55) 0 % ?very low (below 54) Interpretation; poorly controlled with postprandial increases Family history of T2DM in mother, grandmother Has eyes checked yearly, last eye exam 07/18, denies retinopathy. yearly exam Denies neuropathy, + numbness, tingling, no cramping Does not see podiatry Has nephropathy, on BONY/ARB. Referred to neph 01/02/24 eGFR eGFR>60 Has HLD, on statin and zetia. 08/20/2024 LDL 100 Followed by cardiology last seen 2022: she will schedule f/u recent stemi nuclear stress test on 05/03/2021 which was equivocal for small mild distal septal ischemia. Echocardiogram from 09/04/2020 showed EF 55-60%, moderate LVH, moderate diastolic dysfunction with increased filling pressures, mild MR. A cardiac catheterization was done on 07/20/2021 showing normal coronary arteries . [facility] screen Fibrosis-4 (Fib-4) Index for liver fibrosis (calculated on lab work done: 12/18) Advanced fibrosis excluded Approximate Fibrosis stage Nicky 0-1 *Use with caution in patients <35 or >65 years old, as the score has been shown to be less reliable in these patients. Prior Imaging [ Abd CT 03/18: LIVER, GALLBLADDER, AND BILIARY TREE: The liver is normal in size, shape, and attenuation. No focal hepatic lesion or biliary ductal dilatation is present. The gallbladder has been surgically removed. ] Action Plan: rescreen two years from date of screening labs 12/20 [facility] Medical History Hypertensive emergency Diabetes mellitus with diabetic nephropathy Hypertension Acute non-ST elevation myocardial infarction (NSTEMI) UTI (urinary tract infection) Anemia Bilateral hand numbness Bilateral hand pain HSV (herpes simplex virus) infection Smoking TIA (transient ischemic attack) DJD (degenerative joint disease) GERD (gastroesophageal reflux disease) Asthma Obesity Diabetes mellitus HTN (hypertension) Surgical History H/O cardiac catheterization Hx of tubal ligation Hx of cholecystectomy Hx of appendectomy Hx of section Family History Mother Heart disease Diabetes Hypertension Hyperlipidemia Fibromyalgia Father No problems noted. Brother No problems noted. Brother No problems noted. Brother No problems noted. Sister Deep vein thrombosis Son No problems noted. Son No problems noted. Daughter Hypertension Daughter No problems noted. Maternal Aunt History of breast cancer Social History Household Members: Family Housing: Apartment Do you presently have visiting nurse or other home services: No Alcohol intake: never Patient Tobacco Use Status: Never used Tobacco Tobacco use type: Cigarette Cigarettes Per Day: 3 e-Cigarette/Vaping Use: Never Used Second Hand Smoke Exposure: No service: No Current occupational status: employed Cognitive needs: No Hearing needs: No Vision needs: Yes (glasses) Female Reproductive History Menstrual Age of Menarche: 12 Physical Exam Vital Signs: Last Vital Signs Pulse 96 09/19/24 15:00 BP 166/108 H 09/19/24 15:00 Pulse Ox 98 09/19/24 15:00 Oxygen Delivery Method Room Air 09/19/24 15:00 BMI result Body Mass Index 35.1 Const Other: Absence of Cushingoid features. Absence of acromegalic features. Neck exam reveals nl size thyroid about 15 gms. No thyroid nodules palpable. Heart S1 S2, Reg R/R. No M/R G. Skin exam reveals absence of vitiligo or acanthosis nigricans. No edema Visual exam of foot performed. No ulcerations or open lesions. No inter digit maceration or fissuring. No onychomycosis, no callouses. Sensation intact to monofilament exam. Vibratory sensation is normal with 128 Hz tuning fork. Pulses positive Office Procedures Glucose Monitoring Details Details: see hpi [id number] - Glucose monitoring, continuous-physician I&R Procedure code (CPT) selection complete Results Reviewed Results Reviewed: Laboratory Last Values Glucose (Clinic) 223 mg/dL (60-115) H 09/19/24 15:03 Assessment & Plan Assessment & Plan (1) Type 2 diabetes mellitus with unspecified complications: Code(s): E11.8 - Type 2 diabetes mellitus with unspecified complications Category: Medical Plan: 44-year-old poorly controlled type 2 diabetes secondary to noncompliance and insurance loss. We will switch Lantus insulin to Tresiba which she would give her a longer flatter base and improve her glycemic control. In addition to this she can take it once daily and it will last the full 24 hours as opposed to twice daily L howieus which he is having difficulty keeping up with. We will increase short-acting insulin to 16 units t.i.d. Change to Mounjaro 2.5 mg as Trulicity has been ineffective with this patient The patient had an opportunity to ask questions regarding treatment plan. The patient expressed understanding and agreement with the above treatment plan. The patient is aware they should contact our office by phone for worsening glucose readings or for any low blood sugars which may warrant a change in diabetes medication. Compliance is encouraged with medications and any followup testing/consults which may have been ordered. (2) Hypertension: Code(s): I10 - Essential (primary) hypertension Category: Medical Plan The patient has poorly-controlled high blood pressure. She has been regularly taking her blood pressure medications since getting her insurance back. She reports that she follows a low-sodium diet. She adamantly refuses increasing her lisinopril at this time stating I can afford to be weak, I am working all day and I have 2 children to care for. She was advised that high blood pressure can cause hypertensive eye and kidney disease and lead to a stroke. She has agreed to come back in 2 weeks to assess her glucose readings and we will recheck her blood pressure that time and we will readdress this subjective with her. Orders: Orders AMB Glucose Monitoring Today E11.8 - Type 2 diabetes mellitus with unspecified complications Medications: New lancets (FreeStyle Lancets) 4 times a day prn sensor failure or to confirm glucose 150 ea 1RF Mounjaro (tirzepatide) 5 mg (0.5 mL) subcut QWEEK 2 mL 6RF 28 days NS insulin degludec (Tresiba FlexTouch U-200 insulin) 60 units (0.3 mL) subcut DAILY 9 mL 6RF 30 days [alcohol swabs] As directed 200 ea 3RF E11.8 - Type 2 diabetes mellitus with unspecified complications Changed From insulin lispro (Humalog KwikPen (U-100) Insulin) 10-14 units tid before meals subcutaneously 3 times a day; 30 days 15 mL 3RF 42 To insulin lispro (Humalog KwikPen (U-100) Insulin) 16 units (0.16 mL) subcut TID 15 mL 3RF 42 30 days Refilled blood-glucose sensor (Dexcom G7 Sensor device) As directed every ten days 3 ea 11RF E11.8 - Type 2 diabetes mellitus with unspecified complications pen needle, diabetic (Comfort EZ Pen [place]) As directed injects 4X/day 100 ea 4RF E11.8 - Type 2 diabetes mellitus with unspecified complications blood-glucose meter (FreeStyle Lite Meter kit) As directed 1 ea 0RF E11.8 - Type 2 diabetes mellitus with unspecified complications metformin 1,000 mg PO BID 180 tabs 2RF Discontinued flash glucose scanning reader (FreeStyle Chiquita 2 [place]) Discontinued Reason: Doctor's Order As directed 1 ea 0RF On Hold insulin glargine (Lantus Solostar U-100 Insulin) Hold Comment: Doctor's Order 32 units (0.32 mL) subcut BID 60 mL 4RF 90 days E11.8 - Type 2 diabetes mellitus with unspecified complications dulaglutide (Trulicity) Hold Comment: Doctor's Order 1.5 mg (0.5 mL) subcut WE 4 ea 0RF Coding Level of Care Code Est Pt Level 5 (99520) Complex EM visit Add On G2211 Diagnoses Type 2 diabetes mellitus with unspecified complications E11.8 Hypertension I10 CPT Codes Details - CPT: 28610 - Glucose monitoring, continuous-physician I&R ([id number]) Time Spent (min) 55 Comment Time spent reviewing labs/provider notes, face to face, chart doc
[2024-09-19 15:00] VITALS: BP 166/108; PULSE 96; O2SAT 98; BMI 35.1
[2024-09-19 15:11] LABS: Glucose, Whole Blood 223 mg/dL (60-115)
== END 2024-09-19 15:36 | disposition home or self-care (01) ==
LOC: HO.ENCR 14:57
PROVIDERS: PCP Internal Medicine; Visit Provider Nurse Practitioner Adult Health
DX: E11.8 Type 2 diabetes mellitus with unspecified complications (principal); I10 Essential (primary) hypertension
CPT/HCPCS: 95251; 99215

== ENCOUNTER 2024-10-09 11:09 | Outpatient (AMB) | payer OTHER, SELFPAY ==
[2024-10-09 11:23] VITALS: BP 194/110; PULSE 91; O2SAT 98; BMI 34.3
--- NOTE | 2024-10-09 11:23 | A.OFFVIS_ITS ---
Vital Signs 10/09/24 11:23 Height 5 ft 2 in Weight 187 lb 6.287 oz BMI 34.3 BP 194/110 H Blood Pressure Location Rt brachial Position Sitting Pulse 91 Pulse Source Pulse Oximeter Pulse Oximetry (%) 98 Oxygen Delivery Method Room Air Intake Visit Reasons: DMT2 Follow-Up Intake Note: Patient presents today for a follow-up on Type 2 Diabetes Mellitus: Last Diabetic eye exam was on: DUE Last Podiatry exam was on: Patient does not see a Water Treatment Technician Most recent HbA1c: 12.8%, 08/20/2024 Random Glucose: 188 mg/dL, Today Bottle Blowing Machine Tender Required: No Accompanied by: Self / Same As Patient Allergies Iodinated Contrast Media Allergy (Intermediate, Verified 09/17/24 09:48) Anaphylaxis HPI Comments Details: 44 YO F who is seen in f/u for T2DM. She has a longstanding history of poorly controlled diabetes Initially diagnosed with T2DM 2018, started on insulin 02/16 when she started with [facility]. She has seen our distribution tech multiple times. She was following with Brooklyn Dempsey and was considering an insulin pump Was initially started on treatment with metformin at time of diagnosis. Current regimen: Tresiba 60 (changed from Lantus 30 units twice daily) Humalog 16 units three times per day Ozempic 0.5mg (has taken 2 doses, recently transitioned from trulicity) metformin 1000 mg BID 09/19 12.8%. She forgot her smasher hand for download-dexcom Family history of T2DM in mother, grandmother Has eyes checked yearly, last eye exam 07/18, denies retinopathy. yearly exam Denies neuropathy, + numbness, tingling, no cramping Does not see podiatry Has nephropathy, on BONY/ARB. Referred to neph 01/02/24 eGFR eGFR>60 Has HLD, on statin and zetia. 08/20/2024 LDL 100 Followed by cardiology last seen 2022: she will schedule f/u recent stemi nuclear stress test on 05/03/2021 which was equivocal for small mild distal septal ischemia. Echocardiogram from 09/04/2020 showed EF 55-60%, moderate LVH, moderate diastolic dysfunction with increased filling pressures, mild MR. A cardiac catheterization was done on 07/20/2021 showing normal coronary arteries [facility] Medical History Hypertensive emergency Diabetes mellitus with diabetic nephropathy Hypertension Acute non-ST elevation myocardial infarction (NSTEMI) UTI (urinary tract infection) Anemia Bilateral hand numbness Bilateral hand pain HSV (herpes simplex virus) infection Smoking TIA (transient ischemic attack) DJD (degenerative joint disease) GERD (gastroesophageal reflux disease) Asthma Obesity Diabetes mellitus HTN (hypertension) Surgical History H/O cardiac catheterization Hx of tubal ligation Hx of cholecystectomy Hx of appendectomy Hx of section Family History Mother Heart disease Diabetes Hypertension Hyperlipidemia Fibromyalgia Father No problems noted. Brother No problems noted. Brother No problems noted. Brother No problems noted. Sister Deep vein thrombosis Son No problems noted. Son No problems noted. Daughter Hypertension Daughter No problems noted. Maternal Aunt History of breast cancer Social History Household Members: Family Housing: Apartment Do you presently have visiting nurse or other home services: No Alcohol intake: never Patient Tobacco Use Status: Never used Tobacco Tobacco use type: Cigarette Cigarettes Per Day: 3 e-Cigarette/Vaping Use: Never Used Second Hand Smoke Exposure: No service: No Current occupational status: employed Cognitive needs: No Hearing needs: No Vision needs: Yes (glasses) Female Reproductive History Menstrual Age of Menarche: 12 Physical Exam Vital Signs: Last Vital Signs Pulse 91 10/09/24 11:23 BP 194/110 H 10/09/24 11:23 Pulse Ox 98 10/09/24 11:23 Oxygen Delivery Method Room Air 10/09/24 11:23 BMI result Body Mass Index 34.3 Results Reviewed Results Reviewed: Laboratory Last Values Glucose (Clinic) 188 mg/dL (60-115) H 10/09/24 11:27 Assessment & Plan Assessment & Plan (1) Uncontrolled type 2 diabetes mellitus with hyperglycemia: Code(s): E11.65 - Type 2 diabetes mellitus with hyperglycemia Category: Medical Plan Uncontrolled. Reports her blood glucose has improved but dont have updated download and dont have updated A1C as its not due Glucose is 188 today Reiterated current medications and doses. Patient relays understanding She will follow up in six weeks or sooner as needed Discussed high blood pressure and stroke risk. I offered to increase her aldactone or lisinopril but she declines Medications: Discontinued dulaglutide (Trulicity) Discontinued Reason: Doctor's Order 1.5 mg (0.5 mL) subcut WE 4 ea 0RF insulin glargine (Lantus Solostar U-100 Insulin) Discontinued Reason: Doctor's Order 32 units (0.32 mL) subcut BID 90 days 60 mL 4RF E11.8 - Type 2 diabetes mellitus with unspecified complications Coding Level of Care Code Est Pt Level 4 (77826) Diagnoses Uncontrolled type 2 diabetes mellitus with hyperglycemia E11.65
[2024-10-09 11:32] LABS: Glucose, Whole Blood 188 mg/dL (60-115)
--- OUTSIDE RECORDS SUMMARY | 2024-10-09 12:03 | XMS_ITS | Clinical Summary ---
Author Organization [employer] Address [address] [place] [address] [address] [place] [address] Care Team Providers Care Special Warfare Combatant Crewman Name Role Phone Unavailable Primary Care Provider [...] Tobacco Screening 1991 Family Planning (PISQ) 09/12/1994 HPV Vaccines (1 - 3-dose series) 09/12/1994 Hepatitis C Screening 09/12/1997 Pap Smear 09/12/2000 Cervical Cancer Screening 09/12/2009 HPV/Cotest 09/12/2009 Hepatitis B Vaccines (3 of 3 - 19+ 3-dose series) 03/13/2015 10/17/2014, 09/11/2014 Mammogram 2019 COVID-19 Vaccine ( - season) 2023 12/10/2021, 05/14/2021, 11/18/2020 DTaP/Tdap/Td Vaccines (2 - Td or Tdap) 09/11/2024 09/11/2014 Influenza Vaccine (#1) 2024 2, 05/14/2021, 12/27/2017, Additional history exists Zoster Vaccines [...]
== END 2024-10-09 11:45 | disposition home or self-care (01) ==
LOC: HO.ENCR 11:10
PROVIDERS: PCP Internal Medicine; Visit Provider Internal Medicine
DX: E11.65 Type 2 diabetes mellitus with hyperglycemia (principal)

== ENCOUNTER → 2024-10-09 11:09 | Outpatient (BNVA) | payer OTHER, SELFPAY | PROVIDERS: PCP Internal Medicine; Visit Provider Internal Medicine | DX: E11.65 Type 2 diabetes mellitus with hyperglycemia (principal); Z79.4 Long term (current) use of insulin; Z79.84 Long term (current) use of oral hypoglycemic drugs | CPT/HCPCS: 82947; 99212 ==

== ENCOUNTER 2025-01-01 11:14 | Outpatient (AMB) | payer OTHER, SELFPAY ==
--- NOTE | 2025-01-01 11:32 | AM.OFFVISNUR ---
Intake Visit Reasons: TB Implant Allergies Iodinated Contrast Media Allergy (Intermediate, Verified 09/17/24 09:48) Anaphylaxis Office Meds tuberculin PPD 5 tub. unit/0.1 mL intradermal injection solution Performing Provider: Deny Dennis MD [facility] Administered by: Vanna Harrison LPN on 01/01/25 11:30 Dose Route Admin Location Dispensed Lot Number Expiration Date [facility] Commercial Installer 0.1 mL intradermal right forearm 0.1 mL [id number] 05/24/27 73734-645-11 [employer] Total Dispensed Waste 0.1 mL 0 % Assessment & Plan Assessment & Plan Orders: Orders AMB PPD Planted Today Z11.1 - Encounter for screening for respiratory tuberculosis Coding
== END 2025-01-01 11:34 | disposition home or self-care (01) ==
LOC: HO.HMCH 11:15
PROVIDERS: PCP Internal Medicine; Visit Provider Internal Medicine
DX: Z11.1 Encounter for screening for respiratory tuberculosis (principal)

== ENCOUNTER → 2025-01-01 11:14 | Outpatient (BNVA) | payer OTHER, SELFPAY | PROVIDERS: PCP Internal Medicine; Visit Provider Internal Medicine | DX: Z11.1 Encounter for screening for respiratory tuberculosis (principal) | CPT/HCPCS: 86580 ==

== ENCOUNTER 2025-01-08 12:10 | Outpatient (AMB) | payer OTHER, SELFPAY ==
--- NOTE | 2025-01-08 12:12 | AM.OFFVISNUR ---
Intake Visit Reasons: PPD Plant Allergies Iodinated Contrast Media Allergy (Intermediate, Verified 09/17/24 09:48) Anaphylaxis Office Meds tuberculin PPD 5 tub. unit/0.1 mL intradermal injection solution Performing Provider: Deny Dennis MD [facility] [place] Administered by: Linda Eagle RN on 01/08/25 12:25 Dose Route Admin Location Dispensed Lot Number Expiration Date NDC Conference Director 0.1 mL intradermal 0.1 mL Total Dispensed Waste 0.1 mL 0 % Assessment & Plan Assessment & Plan Orders: Orders AMB PPD Planted Today Z11.1 - Encounter for screening for respiratory tuberculosis Coding
--- OUTSIDE RECORDS SUMMARY | 2025-01-08 15:23 | XMS_ITS | Clinical Summary ---
Author Organization [employer] Address [address] [place] [address] [address] [place] [address] Care Team Providers Care Camp Head Counselor Name Role Phone Unavailable Primary Care Provider [...] 3-dose series) 03/13/2015 10/17/2014, 09/11/2014 Mammogram 2019 DTaP/Tdap/Td Vaccines (2 - Td or Tdap) 09/11/2024 09/11/2014 COVID-19 Vaccine ( season) 2024 12/10/2021, 05/14/2021, 11/18/2020 Influenza Vaccine (#1) 2024 2, 05/14/2021, 12/27/2017, [...]
--- OUTSIDE RECORDS SUMMARY | 2025-01-08 15:23 | XMS_ITS | Clinical Summary ---
Author Organization [facility] Address [address] [place], [place] [id number] Phone Care Team Providers Care Division Manager Name Role Phone Derrek Hollingsworth MD Primary Care Provider [phone] Allergies Active Allergy Reactions Criticality Noted Date Comments Iodine 09/11/2021 Latex 09/11/2021 Medications cyclobenzaprine (FLEXERIL) 10 MG tablet Take 1 tablet (10 mg total) by mouth 3 (three) times a day as needed. 30 tablet 11/15/2021 Active Social History Tobacco Use Types Packs/Day Years Used Date Smoking Tobacco: Never Alcohol Use Standard Drinks/Week Comments Yes 0 (1 standard drink = 0.6 oz pur e alcohol) Education Answer Date Recorded Are you interested in more education? Not on tiff e 07/23/2022 Are you concerned about learning? Not on file 07/23/2022 No 07/23/2022 No 07/23/2022 Digital Access Answer Date Recorded No 08/23/2022 No 08/23/2022 Reliable internet access at home? Not on file 08/23/2022 Device with a working camera? Not on file Comments Unknown Sex and Gender Information Value Date Recorded Sex Assigned at Not on file Legal Sex Female 12:30 PM EDT Gender Identity Not on file Sexual Orientation Not on file Last Filed Vital Signs Vital Sign Reading Time Taken Comments Blood Pressure 147/86 11/15/2021 7:48 PM EDT Pulse 91 11/15/2021 7:48 PM EDT Temperature 36.6 C (97.9 F) 11/15/2021 4:56 PM EDT Respiratory Rate 18 11/15/2021 7:48 PM EDT Oxygen Saturation 98% 09/11/2021 3:13 PM EDT Inhaled Oxygen Concentration - - Weight 86.2 kg (190 lb) 11/15/2021 4:56 PM EDT Height 157.5 cm (5' 2 ) 11/15/2021 4:56 PM EDT Body Mass Index 34.75 11/15/2021 4:56 PM EDT Plan of Treatment Not on file Medical Devices Not on file [place] [facility] [facility] [place] [facility] Care Teams Division Manager Relationship Specialty Start Date End Date Derrek Hollingsworth MD [address] [place] [address] [place] [address] PCP - General Internal Medicine 09/11/21 Additional Source Comments The information contained in this document represents components of the legal health record. It is not the complete legal health record.[facility]
== END 2025-01-08 12:25 | disposition home or self-care (01) ==
LOC: HO.HMCH 12:10
PROVIDERS: PCP Internal Medicine; Visit Provider Internal Medicine
DX: Z11.1 Encounter for screening for respiratory tuberculosis (principal)

== ENCOUNTER → 2025-01-08 12:10 | Outpatient (BNVA) | payer OTHER, SELFPAY | PROVIDERS: PCP Internal Medicine; Visit Provider Internal Medicine | DX: Z11.1 Encounter for screening for respiratory tuberculosis (principal) | CPT/HCPCS: 86580 ==

== ENCOUNTER 2025-01-22 10:34 | Emergency (ER) | payer OTHER, SELFPAY ==
--- NOTE | ~2025-01-22 | XR_ITS ---
EXAMINATION: XR CHEST CLINICAL INFORMATION: white count cough COMPARISON: August 19, 2024 TECHNIQUE: 2 views of the chest were obtained. FINDINGS: The cardiac silhouette is enlarged. Lungs are clear and pulmonary vessels are distinct. There is no sign of pleural effusion. XR/XR chest 2V IMPRESSION: Cardiomegaly Electronically signed by: Roberto Moreno MD 01/22/2025 04:18 PM EDT
--- NOTE | ~2025-01-22 | CT_ITS ---
EXAMINATION: CT ABDOMEN AND PELVIS WITHOUT CONTRAST CLINICAL INFORMATION: Abdominal pain, diarrhea, dysuria COMPARISON: 03/24/2023 TECHNIQUE: Multidetector volumetric imaging was performed from the superior aspect of the liver through the pubic symphysis. Sagittal and coronal reformatted images were obtained on the technologist's workstation. This CT examination was performed using dose optimization techniques as appropriate, variously including the following: *Automated exposure control *Adjustment of mA and/or kV according to patient size (this includes techniques or standardized protocols for targeted exams where dose is matched to indication/reason for exam; i.e. extremities or head) *Use of iterative reconstruction technique FINDINGS: LUNG BASES: The visualized lung bases are unremarkable. LIVER, GALLBLADDER, AND BILIARY TREE: The liver is normal in size, shape, and attenuation. No focal hepatic lesion or biliary ductal dilatation is present. The gallbladder surgically absent. There are clips in the gallbladder fossa. No biliary ductal dilation is seen. PANCREAS: Unremarkable. SPLEEN: Unremarkable. ADRENAL GLANDS: There is a stable 4 x 9 mm fat density in the medial limb of the right adrenal gland consistent with a benign etiology such as a lipoma or myelolipoma. Adrenal glands are otherwise unremarkable. KIDNEYS AND URETERS: 3 mm nonobstructing stone is present in the lower pole left kidney. BLADDER: Bladder is partially decompressed and not optimally demonstrated. GASTROINTESTINAL TRACT: Surgical clips in the lateral cecum suggest prior appendectomy. Appendix is not identified. Large small bowel are otherwise unremarkable. ABDOMINAL WALL: Again seen is an infraumbilical hernia containing adipose tissue, likely greater omentum. Hernia sac measures 2.1 x 3.2 cm, similar to the prior. The neck diameter is 7x11 mm LYMPH NODES: Normal. VASCULAR: Unremarkable. PELVIC VISCERA: Uterus and ovaries are within normal limits. OSSEOUS STRUCTURES: Unremarkable. CT/CT abdomen pelvis wo IV con IMPRESSION: 3 mm nonobstructing stone is present in the lower pole left kidney. Unchanged. Stable umbilical hernia containing adipose tissue. Stable small right adrenal gland lipoma/myelolipoma. Fleischner guidelines were followed. Electronically signed by: Roberto Moreno MD 01/22/2025 12:17 PM EDT
[2025-01-22 10:42] VITALS: BP 240/108; PULSE 100; RESP 16; TEMP 36.6; O2SAT 99; BMI 36.2
--- NOTE | 2025-01-22 10:43 | ED_ITS ---
HPI - General Adult General Chief complaint: Abdominal Pain Stated complaint: Cough Congestion Running Nose Time Seen by Provider: 01/22/25 11:02 Source: patient Mode of arrival: ambulatory Limitations: no limitations History of Present Illness ED Provider: DANETTE FAULKNER PA-C HPI narrative: 44 year old female with pmhx significant for poorly controlled HTN, T2DM, TIA/CVA presents today your emergency department today for evaluation of abdominal pain. Pain radiates to her right lower back/flank region. Reports mild dysuria and difficulty urinating last night due to burning sensation. Reports mild nausea and headache at present. Denies fever, chills, diarrhea, constipation, vaginal discharge. Related Data Previous Rx's ?Medication ?Instructions ?Recorded blood-glucose meter (FreeStyle #1 ea 09/05/20 [place] kit) blood pressure monitor #1 ea 11/22/22 acetone (urine) test (Ketone Urine #50 ea 12/08/23 Test strips) blood presure cuff #1 ea 01/02/24 albuterol sulfate 90 mcg/actuation 2 inh inhalation Q4 -6H PRN 08/20/24 breath activated powder shortness of breath or wheez ing #1 inhaler,sensor ea aspirin 81 mg tablet,delayed 81 mg PO DAILY 90 days #9 0 tabs 08/20/24 release alcohol swabs #200 ea 09/19/24 blood-glucose meter (FreeStyle #1 ea 09/19/24 Lite Meter kit) blood-glucose sensor (Dexcom G7 #3 ea 09/19/24 Sensor device) insulin degludec 200 unit/mL (3 60 unit (0.3 mL) subcu t DAILY 30 09/19/24 mL) subcutaneous pen (Tresiba days #9 mL FlexTouch U-200 insulin) insulin lispro 100 unit/mL 16 unit (0.16 mL) subcut TI D 42 09/19/24 subcutaneous pen (Humalog KwikPen #15 mL (U-100) Insulin) lancets 28 gauge (FreeStyle #150 ea 09/19/24 Lancets) metformin 1,000 mg tablet 1,000 mg PO BID #180 tabs pen needle, diabetic 32 gauge x #100 ea 09/19/24 5/16 (Comfort EZ Pen [place]) semaglutide 0.25 mg or 0.5 mg (2 0.5 mg (0.736 mL) sub cut QWEEK 28 09/24/24 mg/3 mL) subcutaneous pen injector days #3 mL (Ozempic) albuterol sulfate 0.63 mg/3 mL 0.63 mg (3 mL) inhalati on Q4-6H 01/01/25 solution for nebulization PRN shortness of breath or wheezing #90 mL cefuroxime axetil 500 mg tablet 500 mg PO BID 7 days # 14 tabs 01/22/25 ondansetron 4 mg disintegrating 4 mg PO Q8H PRN nausea and 01/22/25 tablet vomiting #10 tabs phenazopyridine 200 mg tablet 200 mg PO TID PRN pain ( scale 01/22/25 (Pyridium) score 4-6) 6 doses #6 tabs clotrimazole-betamethasone 1 1 appl topical BID #15 gr ams 01/24/25 %-0.05 % topical cream levofloxacin 500 mg tablet 500 mg PO DAILY #7 tabs amlodipine 10 mg tablet 10 mg PO BEDTIME 90 days #90 tabs 01/28/25 atorvastatin 80 mg tablet 80 mg PO DAILY 90 days #90 t abs 01/28/25 cyclobenzaprine 10 mg tablet 10 mg PO TID PRN muscle s pasm #90 01/28/25 tabs diclofenac sodium 1 % topical gel 2 g topical QID #100 grams 01/28/25 fluticasone propionate 115 2 puff inhalation BID #12 g jason 01/28/25 mcg-salmeterol 21 mcg/actuation HFA inhaler gabapentin 100 mg capsule 100 mg PO BEDTIME #30 caps 1 03/30/24 nebulizers #1 ea 01/28/25 omeprazole 40 mg capsule,delayed 40 mg PO DAILY #90 ca ps 01/28/25 release spironolactone 50 mg tablet 50 mg PO DAILY #90 tabs lisinopril 20 mg tablet 40 mg (2 x 20 mg) PO DAILY 9 0 days 01/30/25 #180 tabs cholecalciferol (vitamin D3) 50 50 mcg PO DAILY #90 ca ps 02/03/25 mcg (2,000 unit) capsule Allergies Allergy/AdvReac Type Severity Reaction Status Date / Time Iodinated Contrast Media Allergy Intermediate Anaphylaxis Verified 01/28/25 16:42 Review of Systems 2 Review of Systems: Yes all other systems are reviewed and are negative [facility] Past Medical History Attestation statement: The following information was validated with the patient. Source: old records reviewed and nursing notes reviewed Medical History Hypertensive emergency Diabetes mellitus with diabetic nephropathy Hypertension Acute non-ST elevation myocardial infarction (NSTEMI) UTI (urinary tract infection) Anemia Bilateral hand numbness Bilateral hand pain HSV (herpes simplex virus) infection Smoking TIA (transient ischemic attack) DJD (degenerative joint disease) GERD (gastroesophageal reflux disease) Asthma Obesity Diabetes mellitus HTN (hypertension) Surgical History H/O cardiac catheterization Hx of tubal ligation Hx of cholecystectomy Hx of appendectomy Hx of section Family History Family History Mother Heart disease Diabetes Hypertension Hyperlipidemia Fibromyalgia Father No problems noted. Brother No problems noted. Brother No problems noted. Brother No problems noted. Sister Deep vein thrombosis Son No problems noted. Son No problems noted. Daughter Hypertension Daughter No problems noted. Maternal Aunt History of breast cancer Social History Social History Household Members: Family Housing: Apartment Do you presently have visiting nurse or other home services: No Alcohol intake: current Alcohol intake frequency: holidays/special occasions only Patient Tobacco Use Status: Never used Tobacco Tobacco use type: Cigarette Cigarettes Per Day: 3 e-Cigarette/Vaping Use: Never Used Second Hand Smoke Exposure: No service: No Current occupational status: employed Cognitive needs: No Hearing needs: No Vision needs: Yes (glasses) Physical Exam ED Vital Signs: Vital Signs - 24 hr 01/22/25 10:42 01/22/25 12:15 01/22/25 14:00 Temperature 98 F Pulse Rate 100 84 Respiratory Rate 16 22 H Blood Pressure 240/108 H 200/90 H 188/92 H Pulse Oximetry 99 96 Oxygen Delivery Method Room Air Room Air BMI result Body Mass Index 36.2 hypertensive General: Well appearing, in no acute distress. Skin: Warm, dry, intact. No rashes or lesions. Head: Normocephalic, atraumatic. EENT: Hearing is intact b/l. Conjunctiva clear. PERRLA. EOM intact. Moist mucous membranes.? Neck: Supple without LAD Cardiac: Chest wall symmetric. RRR Lungs: Normal respiratory effort without accessory muscle use. CTA bilaterally Abdomen: Soft, non-tender, non-distended. No rebound tenderness or guarding. Positive BS x4. no cvat. Back: No midline spinous or paraspinal tenderness. No step off deformity. Ext: Upper and lower extremities atraumatic, without tenderness, deformity, swelling or erythema Neuro: AOx3. Normal speech. Ambulating with steady gait. Psych: Appropriate mood and affect. Responds appropriately to questions. Course Course Course Narrative: Rapid medical screening exam was performed. Patient stable at time of evaluation. 44 yo F DM, HTN, Asthma abdominal pain diffusely, right leg pain, dysuria, pleuritic rib pain. Trouble urinating last night due to burning sensation. Endorses nausea and headache. Abdominal labs + UA ordered, Bladder scan and straight cath ordered. Patient is noted to be hypertensive, has been compliant with medication. Ai Delacruz Emanuel, DO 01/22/25 1044 Reevaluation(s) Reevaluation #1: CBC shows leukocytosis to 17.3. No anemia, H and H stable. Chemistry showing hypokalemia to 3.2 stand hypomagnesemia to 1.5. Patient received repletion in the ED. No JOSE ANTONIO. Random 96, no anion gap. Liver function WNL. Lipase WNL. Urine infected. CT abdomen showing 3 millimeter nonobstructing stone to lower pole of left kidney. Other incidental findings discussed with patient. This is likely not the cause of her discomfort. She has a UTI. chest xray does not demonstrate pneumonia. Patient's discomfort improved with morphine and Dilaudid. She is lying comfortably on the exam bed although somewhat fatigued. Used shared decision making to determine disposition home. will treat UTI with ceftin. zofran and pyridium sent to pharmacy. She is stable at this time and her will be driving her home today. Medications Administered Discontinued Medications Generic Name Dose Route Start Last Admin Trade Name Freq PRN Reason Stop Dose Admin Hydromorphone HCl 1 mg 01/22/25 16:36 01/22/25 16:52 Hydromorphone Hcl 1 Mg/Ml Syringe IVPUSH 01/22/25 16:37 1 mg ONCE ONE Administration Protocol Sodium Chloride 1,000 mls @ 999 mls/hr 01/22/25 12:15 01/22/25 13:40 Ns IV 01/22/25 13:15 Infused .Q1H1M MESHA Infusion Potassium Chloride 10 meq in 100 mls @ 100 mls/hr 01/22/25 13:15 01/22/25 17:01 Potassium Chloride/H20 IV 01/22/25 15:14 Infused Q1H MESHA Infusion Magnesium Sulfate 2 gm in 50 mls @ 150 mls/hr 01/22/25 13:06 01/22/25 17:20 Magnesium Sulfate/H2o IV 01/22/25 13:25 Infused ONCE ONE Infusion Ceftriaxone Sodium 1 gm/ 50 mls @ 100 mls/hr 01/22/25 13:18 01/22/25 15:00 Sodium Chloride IV 01/22/25 13:47 Infused ONCE ONE Infusion Lisinopril 20 mg 01/22/25 11:36 01/22/25 12:15 Lisinopril 20 Mg Tablet PO 01/22/25 11:37 20 mg ONCE ONE Administration Protocol Morphine Sulfate 5 mg 01/22/25 11:37 01/22/25 12:17 Morphine Sulfate 10 Mg/Ml Cartridge IVPUSH 01/22/25 11:38 5 mg ONCE ONE Administration Protocol Ondansetron HCl 4 mg 01/22/25 11:47 01/22/25 12:16 Ondansetron Hcl 4 Mg/2 Ml Vial IVPUSH 01/22/25 11:48 4 mg ONCE ONE Administration Medical Decision Making Medical Decision Making MDM Narrative: 44 year old female with pmhx significant for poorly controlled HTN, T2DM, TIA/CVA presents today your emergency department today for evaluation of abdominal pain. Differential diagnoses: appendicitis, diverticulitis, diverticulosis, UTI, constipation Abdominal exam without peritoneal signs. No evidence of acute abdomen at this time. Well appearing. Low suspicion for acute hepatobiliary disease (including acute cholecystitis), acute infectious processes (pneumonia, hepatitis, pyelonephritis, PID, TOA), vascular catastrophe, bowel obstruction or viscus perforation, ovarian cyst/ rupture/ torsion, ectopic. Presentation not consistent with other acute, emergent causes of abdominal pain at this time. Plan: labs, UA, CT AP, pain control, fluids, serial reassessment Differential Diagnosis Differential Diagnoses: The differential diagnosis associated with the presentation includes as above. Admission/Observation Not indicated Lab Data MDM Lab Attestation statement: I reviewed the patient's lab results. as above. 01/22/25 11:15 01/22/25 11:15 Labs: Lab Results 01/22/25 01/22/25 01/22/25 Range/Units 11:15 12:06 16:25 WBC 17.3 H (4.8-10.8) X10*3/uL RBC 5.53 H (4.20-5.50) X10*6/uL Hgb 12.6 (12.0-16.0) g/dl Hct 40.0 (37.0-47.0) % MCV 72.3 L (80.0-98.0) fL MCH 22.8 L (27.0-33.0) pg MCHC 31.5 (31.0-35.0) g/dl RDW 16.6 H (11.0-16.0) % Plt Count 287 (160-400) X10*3/uL MPV 10.5 (9.4-12.3) fL Immature Gran % (Auto) 0.5 H (0.0-0.4) % Neut % (Auto) 77.9 H (45-73) % Lymph % (Auto) 14.7 L (20-40) % [place] % (Auto) 5.5 (2-11) % Eos % (Auto) 1.2 (0-4) % Baso % (Auto) 0.2 (0-2) % Lymph # (Auto) 2.6 (1.2-4.9) X10*3/uL [place] # (Auto) 1.0 (0.1-1.2) X10*3/uL Eos # (Auto) 0.2 (0.0-0.4) X10*3/uL Baso # (Auto) 0.0 (0.0-0.2) X10*3/uL Abs Immat Gran (auto) 0.08 H (0.00-0.03) X10*3/uL Absolute Neuts (auto) 13.5 H (2.0-8.3) x10*3/uL Absolute Nucleated RBC 0.000 (0.0-0.012) X10*3/uL Nucleated RBC % (auto) 0.0 (0.0-0.2) /100WBC Sodium 138 (135-145) mmol/L Potassium 3.2 L (3.3-5.1) mmol/L Chloride 105 (96-108) mmol/L Carbon Dioxide 25 (22-29) mmol/L Anion Gap 11 L (12-20) BUN 9 (9-16) mg/dL Creatinine 0.71 (0.5-1.4) mg/dL Estim Creat Clear Calc 104.2 Estimated GFR > 60 Random Glucose 196 H (60-115) mg/dL Lactic Acid 1.4 (0.5-2.0) mmol/L Calcium 9.2 (8.4-10.2) mg/dL Magnesium 1.5 L (1.6-2.6) mg/dL Total Bilirubin 0.6 (0.0-1.0) mg/dL AST 20 (5-31) U/L ALT 13 (0-31) U/L Alkaline Phosphatase 88 (39-117) U/L Total Protein 7.5 (6.5-8.0) g/dL Albumin 3.9 (3.5-5.0) g/dL Lipase 14 (8-78) U/L Urine Color Dark Yellow Urine Appearance Cloudy Urine pH 7.5 (5.0-9.0) Ur Specific [place] 1.020 (1.005-1.025) Urine Protein 300 (3+) H (Neg-Trace) mg/dL Urine Glucose (UA) 100 H (Negative) mg/dL Urine Ketones Negative (Negative) mg/dL Urine Blood Small (1+) H (Negative) Urine Nitrite Negative (Negative) Ur Leukocyte Esterase Large (3+) H (Negative) Urine RBC 0-2 (0-2) /HPF Urine WBC >50 (0-5) /HPF Ur Squamous Epith Cells 6-10 (0-2) /HPF Urine Bacteria 4+ (None Seen) Hyaline Casts 3-5 (0-2) /LPF Independent Interpretation I performed an independent interpretation of an: Plain X-Ray and CT Scan Interpretation: chest xray without infiltrate or consolidation CT a/p without obstructing renal stone Radiology Impression Discussion of test interpretation with radiology: I have reviewed the radiologist's reading. Radiologist Impression: Procedure(s): XR chest 2V Accession Number(s): [id number] cc: Physician,Unknown ; Danette Faulkner~ Reason for Exam: white count cough EXAMINATION: XR CHEST CLINICAL INFORMATION: white count cough COMPARISON: August 19, 2024 TECHNIQUE: 2 views of the chest were obtained. FINDINGS: The cardiac silhouette is enlarged. Lungs are clear and pulmonary vessels are distinct. There is no sign of pleural effusion. XR/XR chest 2V IMPRESSION: Cardiomegaly Electronically signed by: Roberto Moreno MD 01/22/2025 04:18 PM EDT RP Procedure(s): CT abdomen pelvis wo IV con Accession Number(s): [id number] cc: Physician,Unknown ; Danette Faulkner~ Report Number: [id number]: Total DLP = 571.00 mGy-cm Reason for Exam: abd pain, diarrhea, dysuria EXAMINATION: CT ABDOMEN AND PELVIS WITHOUT CONTRAST CLINICAL INFORMATION: Abdominal pain, diarrhea, dysuria COMPARISON: 03/24/2023 TECHNIQUE: Multidetector volumetric imaging was performed from the superior aspect of the liver through the pubic symphysis. Sagittal and coronal reformatted images were obtained on the technologist's workstation. This CT examination was performed using dose optimization techniques as appropriate, variously including the following: *Automated exposure control *Adjustment of mA and/or kV according to patient size (this includes techniques or standardized protocols for targeted exams where dose is matched to indication/reason for exam; i.e. extremities or head) *Use of iterative reconstruction technique FINDINGS: LUNG BASES: The visualized lung bases are unremarkable. LIVER, GALLBLADDER, AND BILIARY TREE: The liver is normal in size, shape, and attenuation. No focal hepatic lesion or biliary ductal dilatation is present. The gallbladder surgically absent. There are clips in the gallbladder fossa. No biliary ductal dilation is seen. PANCREAS: Unremarkable. SPLEEN: Unremarkable. ADRENAL GLANDS: There is a stable 4 x 9 mm fat density in the medial limb of the right adrenal gland consistent with a benign etiology such as a lipoma or myelolipoma. Adrenal glands are otherwise unremarkable. KIDNEYS AND URETERS: 3 mm nonobstructing stone is present in the lower pole left kidney. BLADDER: Bladder is partially decompressed and not optimally demonstrated. GASTROINTESTINAL TRACT: Surgical clips in the lateral cecum suggest prior appendectomy. Appendix is not identified. Large small bowel are otherwise unremarkable. ABDOMINAL WALL: Again seen is an infraumbilical hernia containing adipose tissue, likely greater omentum. Hernia sac measures 2.1 x 3.2 cm, similar to the prior. The neck diameter is 7x11 mm LYMPH NODES: Normal. VASCULAR: Unremarkable. PELVIC VISCERA: Uterus and ovaries are within normal limits. OSSEOUS STRUCTURES: Unremarkable. CT/CT abdomen pelvis wo IV con IMPRESSION: 3 mm nonobstructing stone is present in the lower pole left kidney. Unchanged. Stable umbilical hernia containing adipose tissue. Stable small right adrenal gland lipoma/myelolipoma. Fleischner guidelines were followed. Electronically signed by: Roberto Moreno MD 01/22/2025 12:17 PM EDT RP Independent Historian Clinical information obtained from an independent historian. History obtained from or confirmed by: Spouse External Record Review External record reviewed: Inpatient record Prescription Management I considered prescription management with: Antibiotic Chronic Conditions Patient?s care impacted by: Diabetes Social Determinants Patient?s care significantly limited by Social Determinants of Health including: Other Social Determinant of Health Critical Care Time Critical Care Time Critical Care Time: Yes Total Critical Care Time: 31 Attestation: Critical care time in the amount of 31 minutes has been provided to the patient in terms of direct patient care, frequent reevaluation, review and interpretation of medical data and results, and management of potentially life- threatening conditions. This is all outside of any medical procedures. Discharge Plan Discharge Clinical Impression: Urinary tract infection Patient Disposition: Home, Self-Care Instructions: Urinary Tract Infection in Women (ED) Additional Instructions: Your urine today is positive for infection. Ceftin is an antibiotic that has been sent to your pharmacy. Take this as prescribed and do not miss any doses. You must complete the entire course of antibiotics. If you do not, there is a risk of the infection coming back or worsening. Pyridium is an analgesic that can relieve the pain, burning, and discomfort caused by infection or irritation of the urinary tract. It is not an antibiotic and will not cure the infection itself. This has been sent to your pharmacy. Take this as needed for discomfort. Pyridium can cause your urine to turn a reddish orange color.? Follow up with your primary care provider as needed. If you develop a fever or new/ worsening symptoms call 911 or come back to the ER for further evaluation. Prescriptions: New cefuroxime axetil 500 mg tablet 500 mg PO BID 7 Days Qty: 14 0RF ondansetron 4 mg tablet,disintegrating 4 mg PO Q8H PRN (Reason: nausea and vomiting) Qty: 10 0RF phenazopyridine [Pyridium] 200 mg tablet 200 mg PO TID PRN (Reason: pain (scale score 4-6)) Qty: 6 0RF No Action (DME) blood pressure monitor Kit See Rx Instructions .Route Qty: 1 0RF Rx Instructions: As directed albuterol sulfate 0.63 mg/3 mL solution for nebulization 0.63 mg inhalation Q4-6H PRN (Reason: shortness of breath or wheezing) Qty: 90 0RF Rx Instructions: May dispense medication equivalent accepted by patient's insurance lisinopril 20 mg tablet 40 mg PO DAILY 90 Days Qty: 180 6RF cholecalciferol (vitamin D3) 50 mcg (2,000 unit) capsule 50 mcg PO DAILY Qty: 90 3RF (DME) blood-glucose meter [FreeStyle [place]] Kit See Rx Instructions .ROUTE .MEDSUPPLY Qty: 1 0RF Rx Instructions: As directed levofloxacin 500 mg tablet 500 mg PO DAILY Qty: 7 0RF clotrimazole-betamethasone 1-0.05 % cream 1 appl topical BID Qty: 15 0RF aspirin 81 mg tablet,delayed release (DR/EC) 81 mg PO DAILY 90 Days Qty: 90 8RF albuterol sulfate 90 mcg/actuation aero powdr breath act w/sensor 2 inh inhalation Q4-6H PRN (Reason: shortness of breath or wheezing) Qty: 1 0RF Rx Instructions: May dispense medication equivalent accepted by patient's insurance amlodipine 10 mg tablet 10 mg PO BEDTIME 90 Days Qty: 90 3RF atorvastatin 80 mg tablet 80 mg PO DAILY 90 Days Qty: 90 3RF cyclobenzaprine 10 mg tablet 10 mg PO TID PRN (Reason: muscle spasm) Qty: 90 3RF diclofenac sodium 1 % gel 2 g topical QID Qty: 100 3RF spironolactone 50 mg tablet 50 mg PO DAILY Qty: 90 3RF fluticasone propion-salmeterol 115-21 mcg/actuation HFA aerosol inhaler 2 puff inhalation BID Qty: 12 5RF (DME) nebulizers Misc See Rx Instructions .Route Qty: 1 0RF Rx Instructions: to use every 4 hours as needed for wheezing omeprazole 40 mg capsule,delayed release(DR/EC) 40 mg PO DAILY Qty: 90 3RF gabapentin 100 mg capsule 100 mg PO BEDTIME Qty: 30 2RF (DME) Ketone Urine Test Strip See Rx Instructions .ROUTE .MEDSUPPLY Qty: 50 1RF Rx Instructions: As directed prn over 250, nausea, vomiting, illness tid (DME) blood presure cuff large See Rx Instructions .Route .MEDSUPPLY Qty: 1 0RF Rx Instructions: As directed insulin lispro [Humalog KwikPen Insulin] 100 unit/mL insulin pen 16 unit subcut TID 30 Days Qty: 15 3RF insulin degludec [Tresiba FlexTouch U-200] 200 unit/mL (3 mL) insulin pen 60 unit subcut DAILY 30 Days Qty: 9 6RF (DME) pen needle, diabetic [Comfort EZ Pen [place]] 32 gauge x 5/16 needle See Rx Instructions .Route Qty: 100 4RF Rx Instructions: As directed injects 4X/day (DME) blood-glucose meter [FreeStyle Lite Meter] Kit See Rx Instructions .Route Qty: 1 0RF Rx Instructions: As directed (DME) lancets [FreeStyle Lancets] 28 gauge misc See Rx Instructions .ROUTE .MEDSUPPLY Qty: 150 1RF Rx Instructions: 4 times a day prn sensor failure or to confirm glucose (DME) Dexcom G7 Sensor Device See Rx Instructions .ROUTE .MEDSUPPLY Qty: 3 11RF Rx Instructions: As directed every ten days metformin 1,000 mg tablet 1,000 mg PO BID Qty: 180 2RF (DME) alcohol swabs pad See Rx Instructions .Route .MEDSUPPLY Qty: 200 3RF Rx Instructions: As directed Ozempic 0.25 mg or 0.5 mg (2 mg/3 mL) pen injector 0.5 mg subcut QWEEK 28 Days Qty: 3 6RF Rx Instructions: for 4 weeks Referrals: Physician,Unknown Dave [Primary Care Provider, Medical] Interventions: ED Discharge Assessment Last Done: 01/22/25 18:22 Discharge Date/Time: 01/22/25 18:22 Print Language: Peruvian
--- NOTE | 2025-01-22 11:03 | ECG_ITS ---
Test Reason : hypertensive Blood Pressure : */* mmHG Vent. Rate : 97 BPM Atrial Rate : 97 BPM P-R Int : 162 ms QRS Dur : 88 ms QT Int : 382 ms P-R-T Axes : 60 -30 140 degrees QTcB Int : 485 ms Normal sinus rhythm Possible Left atrial enlargement Left axis deviation Left ventricular hypertrophy ( R in aVL , Agency product ) Cannot rule out Septal infarct (cited on or before 20-Aug-2024) Marked ST abnormality, possible lateral subendocardial injury Abnormal ECG When compared with ECG of 20-Aug-2024 07:08, ST less depressed in Lateral leads T wave inversion less evident in Lateral leads Referred By: Danette Faulkner Electronically Signed By: LAURA RIDDLE
[2025-01-22 11:20] LABS: MANUAL DIFF FLAG NO
[2025-01-22 11:22] LABS: Hematocrit 40.0 % (37.0-47.0); Hemoglobin 12.6 g/dl (12.0-16.0); Imm Gran Abs Auto 0.08 X10*3/uL (0.00-0.03); Imm Gran Pct Auto 0.5 % (0.0-0.4); Lymphocytes Absolute Auto 2.6 X10*3/uL (1.2-4.9); Mean Corpuscular HGB Conc 31.5 g/dl (31.0-35.0); Mean Corpuscular Hemoglobin 22.8 pg (27.0-33.0); Mean Corpuscular Volume 72.3 fL (80.0-98.0); NRBC Abs Auto 0.000 X10*3/uL (0.0-0.012); NRBC Pct Auto 0.0 /100WBC (0.0-0.2); Platelet Count 287 X10*3/uL (160-400); Red Blood Count 5.53 X10*6/uL (4.20-5.50); White Blood Count 17.3 X10*3/uL (4.8-10.8)
[2025-01-22 11:37] LABS: Alanine Aminotransferase 13 U/L (0-31); Albumin Level 3.9 g/dL (3.5-5.0); Alkaline Phosphatase 88 U/L (39-117); Anion Gap 11 (12-20); Aspartate Amino Transferase 20 U/L (5-31); Blood Urea Nitrogen 9 mg/dL (9-16); Calcium 9.2 mg/dL (8.4-10.2); Carbon Dioxide 25 mmol/L (22-29); Chloride 105 mmol/L (96-108); Creatinine Clr Calc Pharmacy 104.2; Estimated Glomerular Filt Rate > 60; Lipase 14 U/L (8-78); Magnesium 1.5 mg/dL (1.6-2.6); Potassium 3.2 mmol/L (3.3-5.1); Sodium 138 mmol/L (135-145); Total Protein 7.5 g/dL (6.5-8.0)
[2025-01-22 12:15] VITALS: BP 200/90
[2025-01-22 12:18] LABS: Appearance Urine Cloudy; Glucose Urine UA 100 mg/dL (Negative); PH 7.5 (5.0-9.0); Specific Gravity - Urine 1.020 (1.005-1.025); UMIC TRIGGER UA YES
[2025-01-22 14:00] VITALS: BP 188/92; PULSE 84; RESP 22; O2SAT 96
--- OUTSIDE RECORDS SUMMARY | 2025-01-22 14:11 | XMS_ITS | Clinical Summary ---
Author Organization [facility] Address [address] [place], [place] [address] Phone Care Team Providers Care Process Safety Engineering Technologist Name Role Phone Derrek Hollingsworth MD Primary Care Provider [phone] Allergies Active Allergy Reactions Criticality Noted Date [...] Not on file [place] [facility] [place] [facility] [place] [facility] Care Teams Process Safety Engineering Technologist Relationship Specialty Start Date End Date Derrek Hollingsworth MD [address] [place] [address] [place] [address] PCP - General Internal Medicine 09/11/21 Additional Source Comments The information contained in this document represents components of the legal health record. It is not the complete legal health record.[facility]
[2025-01-22] MEDS: Potassium Chloride/H20 10 MEQ/100 ML PIGGYBACK 100 MEQ IV ×2 (14:22→15:26)
[2025-01-22] MEDS: Magnesium Sulfate/H2O 2 GM/50 ML PIGGYBACK IV (16:35)
[2025-01-22 18:01] VITALS: BP 166/91; PULSE 106; RESP 16; TEMP 36.8; O2SAT 94
[2025-01-22 18:22] VITALS: BP 166/91; PULSE 106; RESP 16; TEMP 36.8; O2SAT 94
== END 2025-01-22 18:22 | disposition home or self-care (01) ==
PROVIDERS: Physician Assistant Medical; Student in an Organized Health Care Education/Training Program; Emergency Provider Emergency Medicine
DX: N39.0 Urinary tract infection, site not specified (principal); R10.30 Lower abdominal pain, unspecified; R19.7 Diarrhea, unspecified; R30.0 Dysuria; R05.9 Cough, unspecified; I10 Essential (primary) hypertension; R11.0 Nausea; R51.9 Headache, unspecified; E11.9 Type 2 diabetes mellitus without complications; D72.829 Elevated white blood cell count, unspecified; Z79.899 Other long term (current) drug therapy
CPT/HCPCS: 36415; 71046; 74176; 80053; 81001; 83605; 83690; 83735; 85025; 87040; 93005; 96361; 96365; 96366; 96368; 96375; 99284; J0696; J1171; J2270; J2405; J3475; J3480

== ENCOUNTER → 2025-01-22 11:03 | Outpatient (BNV) | payer OTHER, SELFPAY | PROVIDERS: Emergency Provider Emergency Medicine; Visit Provider Internal Medicine | DX: I51.7 Cardiomegaly (principal) | CPT/HCPCS: 93010 ==

== ENCOUNTER → 2025-01-22 11:47 | Outpatient (BNV) | payer OTHER, SELFPAY | PROVIDERS: Emergency Provider Emergency Medicine; Visit Provider Radiology Diagnostic Radiology | DX: N20.0 Calculus of kidney (principal); K42.9 Umbilical hernia without obstruction or gangrene; I51.7 Cardiomegaly | CPT/HCPCS: 71046; 74176 ==

== ENCOUNTER 2025-01-24 05:40 | Emergency (ER) | payer OTHER, SELFPAY ==
[2025-01-24 05:44] VITALS: BP 186/101; PULSE 103; RESP 16; TEMP 36.9; O2SAT 97; BMI 36.2
--- NOTE | 2025-01-24 06:07 | ED.FEMALEGU ---
HPI - Female Genitourinary General Chief complaint: Urogenital-Female Stated complaint: UTI? Time Seen by Provider: 01/24/25 05:58 Source: patient Mode of arrival: ambulatory Limitations: no limitations History of Present Illness ED Provider: Dr. Niesha Ramey HPI Narrative: Patient comes to the emergency room complaining of 2 days of hematuria and dysuria. Patient states that 2 days ago she was treated here for UTI with cefuroxime and phenazopyridine. Patient states that she has severe burning in the external genitalia. Patient denies vaginal discharge. Patient denies fever chills, denies flank pain. Related Data Previous Rx's ?Medication ?Instructions ?Recorded blood-glucose meter (FreeStyle #1 ea 09/05/20 [place] kit) nebulizers #1 ea 06/17/21 blood pressure monitor #1 ea 11/22/22 fluticasone propionate 115 2 puff inhalation BID #12 grams 05/18/23 mcg-salmeterol 21 mcg/actuation HFA inhaler cyclobenzaprine 10 mg tablet 10 mg PO TID PRN muscle spasm #90 11/13/23 tabs acetone (urine) test (Ketone Urine #50 ea 12/08/23 Test strips) blood presure cuff #1 ea 01/02/24 diclofenac sodium 1 % topical gel 2 g topical QID #100 grams 06/10/24 albuterol sulfate 90 mcg/actuation 2 inh inhalation Q4-6H PRN 08/20/24 breath activated powder shortness of breath or wheezing #1 inhaler,sensor ea amlodipine 10 mg tablet 10 mg PO BEDTIME 90 days #90 tabs 08/20/24 aspirin 81 mg tablet,delayed 81 mg PO DAILY 90 days #90 tabs 08/20/24 release atorvastatin 80 mg tablet 80 mg PO DAILY 90 days #90 tabs 08/20/24 lisinopril 20 mg tablet 20 mg PO DAILY 30 days #90 tabs 08/20/24 spironolactone 50 mg tablet 50 mg PO DAILY #90 tabs 08/20/24 alcohol swabs #200 ea 09/19/24 blood-glucose meter (FreeStyle #1 ea 09/19/24 Lite Meter kit) blood-glucose sensor ([place]aignAmp G7 #3 ea 09/19/24 Sensor device) insulin degludec 200 unit/mL (3 60 unit (0.3 mL) subcut DAILY 30 09/19/24 mL) subcutaneous pen (Tresiba days #9 mL FlexTouch U-200 insulin) insulin lispro 100 unit/mL 16 unit (0.16 mL) subcut TID 42 09/19/24 subcutaneous pen (Humalog KwikPen days #15 mL (U-100) Insulin) lancets 28 gauge (FreeStyle #150 ea 09/19/24 Lancets) metformin 1,000 mg tablet 1,000 mg PO BID #180 tabs 09/19/24 pen needle, diabetic 32 gauge x #100 ea 09/19/24/16 (Comfort EZ Pen [place]) semaglutide 0.25 mg or 0.5 mg (2 0.5 mg (0.736 mL) subcut QWEEK 28 09/24/24 mg/3 mL) subcutaneous pen injector days #3 mL (Ozempic) albuterol sulfate 0.63 mg/3 mL 0.63 mg (3 mL) inhalation Q4-6H 01/01/25 solution for nebulization PRN shortness of breath or wheezing #90 mL cefuroxime axetil 500 mg tablet 500 mg PO BID 7 days #14 tabs 01/22/25 ondansetron 4 mg disintegrating 4 mg PO Q8H PRN nausea and 01/22/25 tablet vomiting #10 tabs phenazopyridine 200 mg tablet 200 mg PO TID PRN pain (scale 01/22/25 (Pyridium) score 4-6) 6 doses #6 tabs clotrimazole-betamethasone 1 1 appl topical BID #15 grams 01/24/25 %-0.05 % topical cream levofloxacin 500 mg tablet 500 mg PO DAILY #7 tabs 01/24/25 Allergies Allergy/AdvReac Type Severity Reaction Status Date / Time Iodinated Contrast Media Allergy Intermediate Anaphylaxis Verified 01/24/25 05:47 Review of Systems Review of Systems: Constitutional : No Weight loss, No Fever, No Chills, No Night Sweats, No Fatigue, No Malaise ENT/Mouth : No Hearing loss, No Ear Pain, No Nasal Congestion, No Sinus Pain, No Hoarseness, No sore throat, No Rhinorrhea, No Swallowing Difficulty Eyes: No Eye Pain, No Swelling, No Redness, No Foreign Body, No Discharge, No Vision Changes Cardiovascular : No Chest Pain, No SOB, No Dyspnea on Exertion, No Orthopnea, No Edema, No Palpitations Respiratory : No Cough, No Sputum, No Wheezing, No Smoke Exposure, No Dyspnea Gastrointestinal : No Nausea, No Vomiting, No Diarrhea, No Constipation, No abdominal Pain, No Hematochezia, No Melena Genitourinary : Complaining of external genitalia burning sensation, Complaining of Dysuria, No Urinary Frequency, No Hematuria, No Urinary Incontinence, No Urgency, No Flank Pain, No Urinary Flow Changes, No Hesitancy Musculoskeletal : No joint pain, No Myalgias, No Joint Swelling Skin : No Skin Lesions, No rash Neuro : No Weakness, No Numbness, No Paresthesias, No Loss of Consciousness, No Dizziness, No Headache Psych : No Anxiety/Panic, No Depression, No SI/HI/AH/VH, No Social Issues, Heme/Lymph: No Bruising, No Bleeding,No Lymphadenopathy Endocrine : No Polyuria, No Polydipsia, No Temperature Intolerance PMFSH Past Medical History Medical History Hypertensive emergency Diabetes mellitus with diabetic nephropathy Hypertension Acute non-ST elevation myocardial infarction (NSTEMI) UTI (urinary tract infection) Anemia Bilateral hand numbness Bilateral hand pain HSV (herpes simplex virus) infection Smoking TIA (transient ischemic attack) DJD (degenerative joint disease) GERD (gastroesophageal reflux disease) Asthma Obesity Diabetes mellitus HTN (hypertension) Surgical History H/O cardiac catheterization Hx of tubal ligation Hx of cholecystectomy Hx of appendectomy Hx of section Family History Family History Mother Heart disease Diabetes Hypertension Hyperlipidemia Fibromyalgia Father No problems noted. Brother No problems noted. Brother No problems noted. Brother No problems noted. Sister Deep vein thrombosis Son No problems noted. Son No problems noted. Daughter Hypertension Daughter No problems noted. Maternal Aunt History of breast cancer Social History Social History Household Members: Family Housing: Apartment Do you presently have visiting nurse or other home services: No Alcohol intake: current Alcohol intake frequency: holidays/special occasions only Patient Tobacco Use Status: Never used Tobacco Tobacco use type: Cigarette Cigarettes Per Day: 3 Smoked in Last 30 Days: No e-Cigarette/Vaping Use: Never Used Second Hand Smoke Exposure: No Use of substances other than those prescribed or required for medical reasons: No Advance Directives: No Advance Directives Information Provided: Yes Do you have a plan to hurt others: No Plan Patient : No service: No Current occupational status: employed Cognitive needs: No Hearing needs: No Vision needs: Yes (glasses) Physical Exam Exam: Exam: Appearance: Alert. Oriented X3. No acute distress. Eyes: Pupils equal, round and reactive to light. ENT: Pharynx normal. Neck: Normal inspection. Neck supple. No lymph nodes noted. No crepitus CVS: Normal heart rate and rhythm. Pulses normal. Normal S1 and S2 Respiratory: No respiratory distress. Breath sounds normal. No Wheezing. No rales Abdomen: Soft and nontender. No rigidity. No distention. : normal female external genitalia, no lesions. no abnormal vaginal discharge Skin: Skin warm and dry. Normal skin color. Normal skin turgor. Extremities: No lower extremity edema. No Lacerations. No Rash Neuro: Oriented X 3. No motor deficit. No sensory deficit. Moving all extremities. No slurred speech. CN 2 through 12 grossly intact Psych: calm, cooperative, normal affect Vital Signs: Vital Signs: Last Vital Signs Temp 98.4 F 01/24/25 05:44 Pulse 103 H 01/24/25 05:44 Resp 16 01/24/25 05:44 BP 186/101 H 01/24/25 05:44 Pulse Ox 97 01/24/25 05:44 O2 Del Method Room Air 01/24/25 05:44 BMI result Body Mass Index 36.2 Course Course Course Narrative: We will retest patient's urine. Patient states that she has been compliant with her antibiotics, cefuroxime. Patient is requesting that we test her for STDs as well. Patient states that she has been for 27 years, but just wants to make sure there is nothing else going on. Discussed with the patient that we will test her for bacterial vaginosis, Trichomonas, gonorrhea chlamydia, patient agrees with plan. At this time, patient declined empiric treatment for STDs. Medical Decision Making Medical Decision Making [facility] Narrative: My interpretation of labs: Patient's white blood cell count 16.3, improving from previous visit. Chemistry no acute changes, there was not improvement in patient's potassium . However, today patient's urine has nitrites. I will switch the patient's antibiotics to levofloxacin. On physical exam, I did not see any obvious signs of bacterial vaginosis or STDs. I reviewed patient's previous labs from OBGYN. Back in June of 2021, patient had similar concerns, vaginal pain, discomfort, patient was suspicion for infidelity from her partner in requested to be tested for STDs. OBGYN sent to the patient a prescription for clotrimazole/betamethasone Also, OBGYN requested records from tab history, patient has previously tested positive for herpes simplex virus. However, patient was instructed to have her test repeated. Patient states that she did but she never got the results. I discussed with the patient's that if her serology tests are positive, she will receive a phone call at home, they will add the appropriate antibiotics. Patient's vitals are stable, no flank pain. Sepsis or pyelonephritis is not suspected. Differential Diagnosis Differential Diagnoses: The differential diagnosis associated with the presentation includes Lab Data MDM Lab Attestation statement: I reviewed the patient's lab results. 01/24/25 06:12 01/24/25 06:12 Labs: Lab Results 01/24/25 Range/Units 06:12 WBC 16.3 H (4.8-10.8) X10*3/uL RBC 5.07 (4.20-5.50) X10*6/uL Hgb 11.8 L (12.0-16.0) g/dl Hct 37.1 (37.0-47.0) % MCV 73.2 L (80.0-98.0) fL MCH 23.3 L (27.0-33.0) pg MCHC 31.8 (31.0-35.0) g/dl RDW 16.8 H (11.0-16.0) % Plt Count 270 (160-400) X10*3/uL MPV 10.5 (9.4-12.3) fL Immature Gran % (Auto) 0.4 (0.0-0.4) % Neut % (Auto) 73.7 H (45-73) % Lymph % (Auto) 18.6 L (20-40) % [place] % (Auto) 6.3 (2-11) % Eos % (Auto) 0.8 (0-4) % Baso % (Auto) 0.2 (0-2) % Lymph # (Auto) 3.0 (1.2-4.9) X10*3/uL [place] # (Auto) 1.0 (0.1-1.2) X10*3/uL Eos # (Auto) 0.1 (0.0-0.4) X10*3/uL Baso # (Auto) 0.0 (0.0-0.2) X10*3/uL Abs Immat Gran (auto) 0.07 H (0.00-0.03) X10*3/uL Absolute Neuts (auto) 12.0 H (2.0-8.3) x10*3/uL Absolute Nucleated RBC 0.000 (0.0-0.012) X10*3/uL Nucleated RBC % (auto) 0.0 (0.0-0.2) /100WBC Sodium 136 (135-145) mmol/L Potassium 4.1 D (3.3-5.1) mmol/L Chloride 104 (96-108) mmol/L Carbon Dioxide 23 (22-29) mmol/L Anion Gap 13 (12-20) BUN 14 (9-16) mg/dL Creatinine 0.75 (0.5-1.4) mg/dL Estim Creat Clear Calc 98.6 Estimated GFR > 60 Random Glucose 249 H (60-115) mg/dL Calcium 9.0 (8.4-10.2) mg/dL Total Bilirubin 0.5 (0.0-1.0) mg/dL AST 42 H (5-31) U/L ALT 62 H (0-31) U/L Alkaline Phosphatase 155 H (39-117) U/L Total Protein 7.8 (6.5-8.0) g/dL Albumin 3.9 (3.5-5.0) g/dL Urine Color [place] Urine Appearance Hazy Urine pH 5.0 (5.0-9.0) Ur Specific [place] 1.020 (1.005-1.025) Urine Protein See Note (Neg-Trace) mg/dL Urine Glucose (UA) See Note (Negative) mg/dL Urine Ketones See Note (Negative) mg/dL Urine Blood Negative (Negative) Urine Nitrite Positive H (Negative) Ur Leukocyte Esterase See Note (Negative) Discharge Plan Discharge Clinical Impression: UTI (urinary tract infection), Vaginal burning Patient Disposition: Home, Self-Care Instructions: Urinary Tract Infection in Women (ED) Additional Instructions: Please follow-up with your primary care physician tomorrow. If you have any worsening or new symptoms, please return to the emergency room or call 911 Prescriptions: New levofloxacin 500 mg tablet 500 mg PO DAILY Qty: 7 0RF clotrimazole-betamethasone 1-0.05 % cream 1 appl topical BID Qty: 15 0RF No Action (DME) nebulizers Misc See Rx Instructions .Route Qty: 1 0RF Rx Instructions: to use every 4 hours as needed for wheezing (DME) blood pressure monitor Kit See Rx Instructions .Route Qty: 1 0RF Rx Instructions: As directed albuterol sulfate 0.63 mg/3 mL solution for nebulization 0.63 mg inhalation Q4-6H PRN (Reason: shortness of breath or wheezing) Qty: 90 0RF Rx Instructions: May dispense medication equivalent accepted by patient's insurance (DME) blood-glucose meter [OnePINyle [place]] Kit See Rx Instructions .ROUTE .MEDSUPPLY Qty: 1 0RF Rx Instructions: As directed cefuroxime axetil 500 mg tablet 500 mg PO BID 7 Days Qty: 14 0RF ondansetron 4 mg tablet,disintegrating 4 mg PO Q8H PRN (Reason: nausea and vomiting) Qty: 10 0RF phenazopyridine [Pyridium] 200 mg tablet 200 mg PO TID PRN (Reason: pain (scale score 4-6)) Qty: 6 0RF diclofenac sodium 1 % gel 2 g topical QID Qty: 100 0RF atorvastatin 80 mg tablet 80 mg PO DAILY 90 Days Qty: 90 0RF lisinopril 20 mg tablet 20 mg PO DAILY 30 Days Qty: 90 6RF aspirin 81 mg tablet,delayed release (DR/EC) 81 mg PO DAILY 90 Days Qty: 90 8RF amlodipine 10 mg tablet 10 mg PO BEDTIME 90 Days Qty: 90 0RF spironolactone 50 mg tablet 50 mg PO DAILY Qty: 90 1RF albuterol sulfate 90 mcg/actuation aero powdr breath act w/sensor 2 inh inhalation Q4-6H PRN (Reason: shortness of breath or wheezing) Qty: 1 0RF Rx Instructions: May dispense medication equivalent accepted by patient's insurance fluticasone propion-salmeterol 115-21 mcg/actuation HFA aerosol inhaler 2 puff inhalation BID Qty: 12 5RF cyclobenzaprine 10 mg tablet 10 mg PO TID PRN (Reason: muscle spasm) Qty: 90 3RF (DME) Ketone Urine Test Strip See Rx Instructions .ROUTE .MEDSUPPLY Qty: 50 1RF Rx Instructions: As directed prn over 250, nausea, vomiting, illness tid (DME) blood presure cuff large See Rx Instructions .Route .MEDSUPPLY Qty: 1 0RF Rx Instructions: As directed insulin lispro [Humalog KwikPen Insulin] 100 unit/mL insulin pen 16 unit subcut TID 30 Days Qty: 15 3RF insulin degludec [Tresiba FlexTouch U-200] 200 unit/mL (3 mL) insulin pen 60 unit subcut DAILY 30 Days Qty: 9 6RF (DME) pen needle, diabetic [Comfort EZ Pen [place]] 32 gauge x 5/16 needle See Rx Instructions .Route Qty: 100 4RF Rx Instructions: As directed injects 4X/day (DME) blood-glucose meter [FreeStyle Lite Meter] Kit See Rx Instructions .Route Qty: 1 0RF Rx Instructions: As directed (DME) lancets [FreeStyle Lancets] 28 gauge misc See Rx Instructions .ROUTE .MEDSUPPLY Qty: 150 1RF Rx Instructions: 4 times a day prn sensor failure or to confirm glucose (DME) Dexcom G7 Sensor Device See Rx Instructions .ROUTE .MEDSUPPLY Qty: 3 11RF Rx Instructions: As directed every ten days metformin 1,000 mg tablet 1,000 mg PO BID Qty: 180 2RF (DME) alcohol swabs pad See Rx Instructions .Route .MEDSUPPLY Qty: 200 3RF Rx Instructions: As directed Ozempic 0.25 mg or 0.5 mg (2 mg/3 mL) pen injector 0.5 mg subcut QWEEK 28 Days Qty: 3 6RF Rx Instructions: for 4 weeks Print Language: Cook Islander
[2025-01-24 06:19] LABS: MANUAL DIFF FLAG NO
[2025-01-24 06:20] LABS: Hematocrit 37.1 % (37.0-47.0); Hemoglobin 11.8 g/dl (12.0-16.0); Imm Gran Abs Auto 0.07 X10*3/uL (0.00-0.03); Imm Gran Pct Auto 0.4 % (0.0-0.4); Lymphocytes Absolute Auto 3.0 X10*3/uL (1.2-4.9); Mean Corpuscular HGB Conc 31.8 g/dl (31.0-35.0); Mean Corpuscular Hemoglobin 23.3 pg (27.0-33.0); Mean Corpuscular Volume 73.2 fL (80.0-98.0); NRBC Abs Auto 0.000 X10*3/uL (0.0-0.012); NRBC Pct Auto 0.0 /100WBC (0.0-0.2); Platelet Count 270 X10*3/uL (160-400); Red Blood Count 5.07 X10*6/uL (4.20-5.50); White Blood Count 16.3 X10*3/uL (4.8-10.8)
[2025-01-24 06:36] LABS: Alanine Aminotransferase 62 U/L (0-31); Albumin Level 3.9 g/dL (3.5-5.0); Alkaline Phosphatase 155 U/L (39-117); Anion Gap 13 (12-20); Appearance Urine Hazy; Aspartate Amino Transferase 42 U/L (5-31); Blood Urea Nitrogen 14 mg/dL (9-16); Calcium 9.0 mg/dL (8.4-10.2); Carbon Dioxide 23 mmol/L (22-29); Chloride 104 mmol/L (96-108); Creatinine Clr Calc Pharmacy 98.6; Estimated Glomerular Filt Rate > 60; PH 5.0 (5.0-9.0); Potassium 4.1 mmol/L (3.3-5.1); Sodium 136 mmol/L (135-145); Specific Gravity - Urine 1.020 (1.005-1.025); Total Protein 7.8 g/dL (6.5-8.0); UMIC TRIGGER UACC YES
--- OUTSIDE RECORDS SUMMARY | 2025-01-24 06:44 | XMS_ITS | Clinical Summary ---
Author Organization [employer] Address [address] [place] [address] [address] [place] [address] Care Team Providers Care Baseball Glove Stuffer Name Role Phone Unavailable Primary Care Provider [...]
--- OUTSIDE RECORDS SUMMARY | 2025-01-24 06:44 | XMS_ITS | Clinical Summary ---
Author Organization [facility] Address [address] [place], [place] [id number] Phone Care Team Providers Care Senior Applications Analyst Name Role Phone Derrek Hollingsworth MD Primary Care Provider Allergies Active Allergy Reactions Criticality Noted Date [...] Not on file [place] [facility] [place] [facility] [place] [facility] Care Teams Senior Applications Analyst Relationship Specialty Start Date End Date Derrek Hollingsworth MD [address] [place] [address] [place] [id number] PCP - General Internal Medicine 09/11/21 Additional Source Comments The information contained in this document represents components of the legal health record. It is not the complete legal health record.[facility]
[2025-01-24 06:53] LABS: UACC Culture Trigger YES
[2025-01-24 07:38] LABS: Bacterial Vaginosis PCR POSITIVE (Negative); Candida Group PCR NOT DETECTED (Not Detect); Candida glab krusei PCR NOT DETECTED (Not Detect); Trichomonas vaginalis PCR NOT DETECTED (Not Detect)
[2025-01-24 07:49] VITALS: BP 167/95; PULSE 92; RESP 18; TEMP 36.2; O2SAT 97
[2025-01-24 08:08] LABS: CT PCR NOT DETECTED (Not Detect.); NG PCR NOT DETECTED (Not Detect.)
[2025-01-24 08:40] VITALS: BP 169/88; PULSE 92; RESP 16; TEMP 36.6; O2SAT 99
== END 2025-01-24 08:48 | disposition home or self-care (01) ==
PROVIDERS: Emergency Provider Emergency Medicine; PCP Physician Assistant
DX: N39.0 Urinary tract infection, site not specified (principal); I10 Essential (primary) hypertension; E11.9 Type 2 diabetes mellitus without complications; Z72.0 Tobacco use; Z79.899 Other long term (current) drug therapy
CPT/HCPCS: 36415; 80053; 81001; 81515; 85025; 87086; 87491; 87591; 99283; 99284

== ENCOUNTER 2025-01-28 16:20 | Outpatient (AMB) | payer OTHER, SELFPAY ==
[2025-01-28 16:30] VITALS: BP 210/104; PULSE 90; RESP 18; TEMP 36.3; O2SAT 94; BMI 34.8
--- NOTE | 2025-01-28 16:30 | A.OFFPC_ITS ---
Vital Signs 01/28/25 16:30 Height 5 ft 2 in Weight 190 lb 6 oz BMI 34.8 BP 210/104 H Blood Pressure Location Lt brachial Position Sitting Respiration 18 Pulse 90 Pulse Source Pulse Oximeter Temp 97.3 F Temp Source Temporal Artery Scan Pulse Oximetry (%) 94 Oxygen Delivery Method Room Air Intake Visit Reasons: annual exam/FREDERIC Dr. 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 Required: No Accompanied by: Self / Same As Patient Allergies Iodinated Contrast Media Allergy (Intermediate, Verified 01/28/25 16:42) Anaphylaxis Medication List - Last Reconciled 01/28/25 by NADEGE Resendez acetone (urine) test (Ketone Urine Test strips) As directed prn over 250, nausea, vomiting, illness tid albuterol sulfate 90 mcg/actuation 2 inhalations inhalation Q4-6H PRN albuterol sulfate 0.63 mg (3 mL) inhalation Q4-6H PRN [alcohol swabs As directed] amlodipine 10 mg PO BEDTIME 90 days aspirin 81 mg PO DAILY 90 days atorvastatin 80 mg PO DAILY 90 days blood pressure monitor As directed [blood presure cuff As directed] blood-glucose meter (FreeStyle [place] kit) As directed blood-glucose meter (FreeStyle Lite Meter kit) As directed blood-glucose sensor (ELDR Media G7 Sensor device) As directed every ten days cefuroxime axetil 500 mg PO BID 7 days clotrimazole-betamethasone 1-0.05 % 1 appl topical BID cyclobenzaprine 10 mg PO TID PRN diclofenac sodium 1% 2 grams topical QID fluticasone propion-salmeterol 115-21 mcg/actuation 2 puffs inhalation BID insulin degludec (Tresiba FlexTouch U-200 insulin) 60 units (0.3 mL) subcut DAILY 30 days insulin lispro (Humalog KwikPen (U-100) Insulin) 16 units (0.16 mL) subcut TID 30 days lancets (FreeStyle Lancets) 4 times a day prn sensor failure or to confirm glucose levofloxacin 500 mg PO DAILY lisinopril 20 mg PO DAILY 30 days metformin 1,000 mg PO BID nebulizers to use every 4 hours as needed for wheezing ondansetron 4 mg PO Q8H PRN pen needle, diabetic (Comfort EZ Pen [place]) As directed injects 4X/day phenazopyridine (Pyridium) 200 mg PO TID PRN 6 doses semaglutide (Ozempic) 0.5 mg (0.736 mL) subcut QWEEK 28 days spironolactone 50 mg PO DAILY Tobacco use date assessed: 01/28/25 Dental Screening Dental Screen Date: 01/28/25 Did you have a dental visit in the last 12 months?: Yes Did you have a dental problem in the last 6 months where you did not have access to dental care?: No Was dental information given to patient?: Patient has dentist HPI annual exam/FREDERIC Dr. Hollingsworth HPI Details The patient is a 44-year-old female transferred from Dr. Hollingsworth, who retired. Past medical history of HTN, diabetes, hld, obesity, CVA, LVH. severe sleep apnea. Per chart review: Most recent echocardiogram 08/20/2024 shows EF 65-70%, grade 2 diastolic dysfunction severe LVH. She had a cardiac catheterization on 07/20/2021 showing normal coronary arteries. The patient is a 44-year-old female transferred from Dr. Hollingsworth, who retired. Past medical history of HTN, diabetes, hld, obesity, CVA, LVH. severe sleep apnea. The patient is presenting for management of multiple chronic conditions including elevated blood pressure and poorly controlled diabetes mellitus. She has a history of medication nonadherence and reports not currently taking several prescribed medications, including amlodipine, atorvastatin, cyclobenzaprine, a joint cream, and her inhaler, often due to issues with obtaining refills. The patient reports being in constant pain, primarily from the waist down, which radiates from her lower back and hips down the back of both legs to her calves, where it is most prominent. She also experiences pain in her arms, neck stiffness, and has diagnoses of arthritis, fibromyalgia, and carpal tunnel syndrome. 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 She previously used muscle relaxers, which are no longer effective, and currently only takes baby aspirin for pain. Her cardiac history is significant for two prior strokes, heart issues, and cardiomegaly. She reports exertional chest pain and tightness, as well as palpitations. The patient reports a last coronary artery test was fine, but her certified home health aide mentioned a possible need for a stent in the future. Recent labs from a hospitalization revealed a white blood cell count of 16.3, which is attributed to an active UTI. Mild anemia suggestive of iron deficiency anemia (low MCV and MCH), which might be the cause of her fatigue. Her liver enzymes were also noted to be elevated during this admission in the hospital. Respiratory history includes asthma, for which she uses a fast-acting rescue inhaler daily for exertional shortness of breath, and she has had difficulty obtaining her long-acting preventer inhaler. She was diagnosed with sleep apnea months ago but has not received a machine. Past imaging has identified a stable umbilical hernia, a 3-mm nonobstructive left kidney stone, and a stable right adrenal gland lipoma. She has a history of heartburn related to a hernia. The patient has a scheduled appointment to begin physical therapy for her back. Plans to call and give the office the information on where she is going for her PT, so a referral cough be sent there. Her sister has a history of thyroid problems and blood clots, so she is concern about these conditions. The patient is requesting a new nebulizer machine. However, the patient primary issue is her elevated blood pressure with a systolic in the 200s. The patient was instructed to take an extra dose of her lisinopril 20mg as soon as she gets home and return in the morning for a blood pressure check by nurse. [facility] Medical History Hypertensive emergency Diabetes mellitus with diabetic nephropathy Hypertension Acute non-ST elevation myocardial infarction (NSTEMI) UTI (urinary tract infection) Anemia Bilateral hand numbness Bilateral hand pain HSV (herpes simplex virus) infection Smoking TIA (transient ischemic attack) DJD (degenerative joint disease) GERD (gastroesophageal reflux disease) Asthma Obesity Diabetes mellitus HTN (hypertension) Surgical History H/O cardiac catheterization Hx of tubal ligation Hx of cholecystectomy Hx of appendectomy Hx of section Family History Mother Heart disease Diabetes Hypertension Hyperlipidemia Fibromyalgia Father No problems noted. Brother No problems noted. Brother No problems noted. Brother No problems noted. Sister Deep vein thrombosis Son No problems noted. Son No problems noted. Daughter Hypertension Daughter No problems noted. Maternal Aunt History of breast cancer Social History Household Members: Family Housing: Apartment Do you presently have visiting nurse or other home services: No Alcohol intake: current Alcohol intake frequency: holidays/special occasions only Patient Tobacco Use Status: Never used Tobacco Tobacco use type: Cigarette Cigarettes Per Day: 3 e-Cigarette/Vaping Use: Never Used Second Hand Smoke Exposure: No service: No Current occupational status: employed Cognitive needs: No Hearing needs: No Vision needs: Yes (glasses) Female Reproductive History Menstrual Age of Menarche: 12 Questionnaire Thrive Questionnaire Date Thrive assessed: 08/30/24 I am a: Patient What is your living situation today?: I have a place to live, but I am worried about losing it in the future Within the past 12 months, did the food you bought not last and you didn't have the money to get more?: I choose not to answer this question Within the past 12 months, did you worry whether your food would run out before you got money to buy more?: I choose not to answer this question Do you have trouble paying for medicines?: Yes Do you have trouble getting transportation to medical appointments?: I choose not to answer this question Do you have trouble paying your heating and electricity bill?: No Do you have trouble taking care of your child, family member or friend?: No Do you have trouble with day-to-day activities such as bathing, preparing meals, shopping, managing finances, etc.?: No Are you currently unemployed and looking for a job?: No Are you interested in more education?: No Please select the resources that you would like help with: None Currently or been in a relationship where the following occur: No concerns r eported THRIVE Score: 1 VIKRAM-7 AMB Questionnaire VIKRAM-7 Date VIKRAM - 7 assessed: 08/30/24 Source: Developed by Drs. Willian Nassar, Monique Clark, Aaron Ortega and colleagues, with an educational walter from [employer]. Review of Systems Const Reports daytime sleepiness, Reports fatigue and Denies headache(s) Eyes Denies loss of vision ENT Denies vertigo, Denies dizziness, Denies headache(s) and Denies sore throat Card Reports chest pain (Recurrent, chest tightness with activity), Denies leg edema, Denies lightheadedness and Reports dyspnea on exertion Resp Denies cough, Denies hemoptysis, Reports dyspnea on exertion and Denies wheezing GI Denies abdominal pain, Denies melena, Denies constipation, Reports heartburn, Denies diarrhea and Denies vomiting Denies urinary frequency, Denies dysuria and Denies urinary urgency Musc Reports back pain, Reports arthralgias (Hips), Denies joint swelling, Denies numbness, Reports radiating pain into limb (Bilateral hips and calves) and Denies tingling Neuro Denies Abnormal speech present, Denies behavioral changes, Denies vertigo, Denies dizziness, Denies headache(s), Denies loss of vision, Denies memory loss, Denies numbness and Denies tingling Psych Denies anxiety, Denies behavioral changes, Denies depression, Denies memory loss and Denies panic attacks Endo Reports fatigue Martin/Lymph Denies easy bleeding and Denies easy bruising Aller/Immun Denies wheezing Physical exam (Primary Care) Vital Signs: Last Vital Signs Temp 97.3 F 01/28/25 16:30 Resp 18 01/28/25 16:30 Oxygen Delivery Method Room Air 01/28/25 16:30 BMI result Body Mass Index 34.8 Tobacco/Smoking Status: Tobacco use Status Tobacco use date assessed 08/30/24 08/30/24 16:38 Patient Tobacco Use Status Never used Tobacco 08/30/24 16:38 Tobacco use type Cigarette 08/30/24 16:38 e-Cigarette/Vaping Use Never Used 08/30/24 16:38 Thrive Assessment: Date of Thrive Assessment Date Thrive assessed 08/30/24 09/19/24 15:00 Currently or been in a relationship where the following occur: No concerns reported Const General: healthy appearing, no acute distress, alert and awake Nutritional Appearance: well nourished Orientation/consciousness: oriented to person, oriented to place and oriented to time [facility] Ears: hearing grossly normal bilaterally General nose exam: Normal external nose present Eyes Conjunctivae: conjunctivae normal Sclerae: sclerae normal Pupils: Equal, round and reactive pupils present Neck Neck: Yes no lymphadenopathy and Yes no JVD Thyroid: Thyroid normal Carotids: no bruits Resp Effort & Inspection: normal respiratory effort and not tachypneic Auscultation: no crackles, no rales, no rhonchi and no wheezes Cardio Rate: regular rate Rhythm: regular rhythm Heart sounds: S1 normal heart sound present, S2 normal heart sound present, no murmurs and normal S1 and S2 GI Palpation (GI): Soft to palpation, nontender, no hepatomegaly and no splenomegaly Auscultation: normal bowel sounds Skin General skin exam: no rashes or lesions noted and dry skin Neuro General: oriented to person, oriented to place and oriented to time Cranial nerves: Yes Equal, round and reactive pupils present Speech: No Abnormal speech present Gait exam (Neuro): Normal gait present Motor exam (neuro): no tremor noted Extrem Right upper extremity: full ROM Left upper extremity: full ROM Right lower extremity: full ROM; no edema Left lower extremity: full ROM; no edema Psych Mental Status: mental status grossly normal Speech and movement: Normal speech and movement present Affect: normal affect Attitude: cooperative Thought process: Normal thought process present Results Reviewed Results Reviewed: Laboratory Tests 01/24/25 06:12 WBC 16.3 H RBC 5.07 Hgb 11.8 L Hct 37.1 MCV 73.2 L MCH 23.3 L MCHC 31.8 RDW 16.8 H Plt Count 270 MPV 10.5 Sodium 136 Potassium 4.1 D Chloride 104 Carbon Dioxide 23 Anion Gap 13 BUN 14 Creatinine 0.75 Estim Creat Clear Calc 98.6 Estimated GFR > 60 Random Glucose 249 H Calcium 9.0 Total Bilirubin 0.5 AST 42 H ALT 62 H Alkaline Phosphatase 155 H Total Protein 7.8 Albumin 3.9 Urine Color [place] Urine Appearance Hazy Urine pH 5.0 Ur Specific [place] 1.020 Urine Blood Negative Urine Nitrite Positive H Urine RBC 0-2 Urine WBC 0-5 Ur Squamous Epith Cells 0-2 Urine Bacteria Trace Hyaline Casts 0-2 Coding Level of Care Code Est Pt Level 4 (27551) Diagnoses Uncontrolled hypertension I10 Chronic bilateral low back pain with bilateral sciatica M54.42; M54.41; G89.29 Chronicity: chronic Back pain laterality: bilateral Sciatica presence: with sciatica Sciatica laterality: bilateral sciatica Gastroesophageal reflux disease, unspecified whether esophagitis present K21.9 Esophagitis presence: esophagitis presence not specified Anemia, unspecified type D64.9 Anemia type: unspecified type Cerebrovascular accident (CVA), unspecified mechanism I63.9 CVA mechanism: unspecified Severe sleep apnea G47.30 Smoking F17.200 Asthma, unspecified asthma severity, unspecified whether complicated, unspecified whether persistent J45.909 Asthma severity: unspecified severity Asthma persistence: unspecified Asthma complication type: unspecified Uncontrolled type 2 diabetes mellitus with hyperglycemia E11.65 LVH (left ventricular hypertrophy) I51.7 Time Spent (min) 45 Assessment & Plan Assessment & Plan (1) Uncontrolled hypertension: Code(s): I10 - Essential (primary) hypertension Category: Medical Plan: The patient's blood pressure is severely elevated, placing her at high risk for stroke, especially given her history of two prior strokes. Nonadherence to amlodipine and uncontrolled sleep apnea are likely contributing factors. She was instructed to take an extra dose of lisinopril 20 mg today. Prescriptions for amlodipine and atorvastatin will be sent. The patient is advised to eliminate salt from her diet and will return tomorrow for a blood pressure check, with frequent follow-ups until controlled. (2) Low back pain: Code(s): M54.50 - Low back pain, unspecified Category: Medical Qualifiers: Chronicity: chronic Back pain laterality: bilateral Sciatica presence: with sciatica Sciatica laterality: bilateral sciatica Qualified Code(s): M54.42 - Lumbago with sciatica, left side; M54.41 - Lumbago with sciatica, right side; G89.29 - Other chronic pain Plan: The patient experiences widespread chronic pain in her lower back, legs, arms, and joints, attributed to arthritis, fibromyalgia, and carpal tunnel syndrome. Previous muscle relaxers were not effective. She will be started on gabapentin 100 mg at bedtime, with instructions to titrate up to 200-300 mg as needed for pain and to report back if the dose is increased. A prescription for cyclobenzaprine will also be sent. A referral will be made for physical therapy for her back pain. (3) GERD (gastroesophageal reflux disease): Comment: Will check H pylori Code(s): K21.9 - Gastro-esophageal reflux disease without esophagitis Category: Medical Qualifiers: Esophagitis presence: esophagitis presence not specified Qualified Code(s): K21.9 - Gastro-esophageal reflux disease without esophagitis Plan: Do not eat meals or drink carbonated beverages within 3 hr of bedtime Decrease the amount of fried, fatty, and spicy foods to decrease gastric acid production Raise the head of the bed using 4 to 6-inch blocks, especially if nocturnal sy mptoms are present Lose weight if indicated; avoid tight-fitting clothing, especially around the waist Avoid foods that relax the Lower esophageal sphincter (chocolate, peppermint, high-fat foods etc.,) Start omeprazole 40 mg daily (4) Anemia: Code(s): D64.9 - Anemia, unspecified Category: Medical Qualifiers: Anemia type: unspecified type Qualified Code(s): D64.9 - Anemia, unspecified Plan: Microcytic hypochromic anemia suggesting iron-deficiency. Iron profile ordered to further evaluate (5) CVA (cerebral vascular accident): Code(s): I63.9 - Cerebral infarction, unspecified Category: Medical Qualifiers: CVA mechanism: unspecified Qualified Code(s): I63.9 - Cerebral infarction, unspecified Plan: Head CT on 08/19/2024 showed patchy hypoattenuation of the periventricular and deep white matter, suspected to be a sequelae of moderate chronic small vessel ischemia disease in his similar on prior study, noted to be advanced for patient's age. The patient was also evaluated for Left-sided weakness: SHOWED Small acute lacunar infarct in the right hemisphere white matter from small vessel disease. Atorvastatin 80 mg reordered for patient. Discussed in length to the patient about blood pressure controlled and cholesterol management. (6) Severe sleep apnea: Code(s): G47.30 - Sleep apnea, unspecified Category: Medical Plan: Patient was diagnosed with severe sleep apnea. Per patient, she was told about the diagnosis but is unaware of were together machine. We will refer the patient to sleep Medicine. Discussed with the patient that her sleep apnea is probably the reason for her uncontrolled blood pressure. (7) Smoking: Code(s): F17.200 - Nicotine dependence, unspecified, uncomplicated Category: Social Hx Plan: Patient reports that she is smoking close to half a pack a day. Encouraged smoking cessation (8) Asthma: Code(s): J45.909 - Unspecified asthma, uncomplicated Category: Medical Qualifiers: Asthma severity: unspecified severity Asthma persistence: unspecified Asthma complication type: unspecified Qualified Code(s): J45.909 - Unspecified asthma, uncomplicated Plan: Patient reports that she is out of her LABA inhaler and only has been taking her PEDRO LUIS. She voice concerns about not being able to obtain this medication due to lack of refills. She is also requesting a new nebulizer machine. Fluticasone propion-salmeterol 115-21 mcg/actuation refilled for the patient. Will send in a script for an new nebulizer. (9) Uncontrolled type 2 diabetes mellitus with hyperglycemia: Code(s): E11.65 - Type 2 diabetes mellitus with hyperglycemia Category: Medical Plan: The patient had a random glucose in the hospital of 249. Her last A1c 12.8% on 08/20/24. The patient is on Tresiba 60 units subQ daily, lisinopril 16 units t.i.d. with meals, metformin a 1000 mg b.i.d. Ozempic 0.5 mg subQ q.week. Discussed medication compliance with the patient and dietary modifications. Follow up with endocrinology as scheduled. (10) LVH (left ventricular hypertrophy): Code(s): I51.7 - Cardiomegaly Category: Medical Plan: The patient had an echocardiogram on on 08/20/2024, showing normal LV ejection fraction of 65-70% with a grade 2 diastolic dysfunction with severe left ventricular hypertrophy. Severely increased left ventricular wall thickness. Right ventricle with normal cavity. LVH related to uncontrolled HTN. REVIEWED MEDICATIONS WITH THE PATIENT. She is currently not taking amlodipine because she is out, has not been taking spironolactone 50 mg because she is out of medication as well. These medications for refilled for the patient, in the interim, the patient was encouraged to take an extra dose of her 20 mg of lisinopril as soon as she gets home and to return to the clinic tomorrow morning for blood pressure check. She should promptly pick picks up her other amlodipine and spironolactone that was refilled. Per chart review, nephrology at ordered the patient to take spironolactone 50 mg b.i.d.. The order in her chart at this time is 50 mg daily, unclear why this was decreased and we will discuss more with the patient upon her return. Orders: Orders Vitamin D 25-OH Total Today E11.65 - Type 2 diabetes mellitus with hyperglycemia, E55.9 - Vitamin D deficiency, unspecified, E66.01 - Morbid (severe) obesity due to excess calories, E66.3 - Overweight, F33.1 - Major depressive disorder, recurrent, moderate, I10 - Essential (primary) hypertension, I16.1 - Hypertensive emergency, I51.7 - Cardiomegaly, I51.89 - Other ill-defined heart diseases, Z98.890 - Other specified postprocedural states UA CC w/rflx Micro + Cult Today E11.65 - Type 2 diabetes mellitus with hyperglycemia, E55.9 - Vitamin D deficiency, unspecified, E66.01 - Morbid (severe) obesity due to excess calories, E66.3 - Overweight, F33.1 - Major depressive disorder, recurrent, moderate, I10 - Essential (primary) hypertension, I16.1 - Hypertensive emergency, I51.7 - Cardiomegaly, I51.89 - Other ill-defined heart diseases, Z98.890 - Other specified postprocedural states Uric Acid Today E11.65 - Type 2 diabetes mellitus with hyperglycemia, E55.9 - Vitamin D deficiency, unspecified, E66.01 - Morbid (severe) obesity due to excess calories, E66.3 - Overweight, F33.1 - Major depressive disorder, recurrent, moderate, I10 - Essential (primary) hypertension, I16.1 - Hypertensive emergency, I51.7 - Cardiomegaly, I51.89 - Other ill-defined heart diseases, Z98.890 - Other specified postprocedural states Erythrocyte Sedimentation Rate Today E11.65 - Type 2 diabetes mellitus with hyperglycemia, E55.9 - Vitamin D deficiency, unspecified, E66.01 - Morbid (severe) obesity due to excess calories, E66.3 - Overweight, F33.1 - Major depressive disorder, recurrent, moderate, I10 - Essential (primary) hypertension, I16.1 - Hypertensive emergency, I51.7 - Cardiomegaly, I51.89 - Other ill-defined heart diseases, Z98.890 - Other specified postprocedural states Lipid Panel Today E11.65 - Type 2 diabetes mellitus with hyperglycemia, E55.9 - Vitamin D deficiency, unspecified, E66.01 - Morbid (severe) obesity due to excess calories, E66.3 - Overweight, F33.1 - Major depressive disorder, recurrent, moderate, I10 - Essential (primary) hypertension, I16.1 - Hypertensive emergency, I51.7 - Cardiomegaly, I51.89 - Other ill-defined heart diseases, Z98.890 - Other specified postprocedural states Comprehensive Worth. Panel Fast Today E11.65 - Type 2 diabetes mellitus with hyperglycemia, E55.9 - Vitamin D deficiency, unspecified, E66.01 - Morbid (severe) obesity due to excess calories, E66.3 - Overweight, F33.1 - Major depressive disorder, recurrent, moderate, I10 - Essential (primary) hypertension, I16.1 - Hypertensive emergency, I51.7 - Cardiomegaly, I51.89 - Other ill-defined heart diseases, Z98.890 - Other specified postprocedural states TSH reflex Free T4 Today E11.65 - Type 2 diabetes mellitus with hyperglycemia, E55.9 - Vitamin D deficiency, unspecified, E66.01 - Morbid (severe) obesity due to excess calories, E66.3 - Overweight, F33.1 - Major depressive disorder, recurrent, moderate, I10 - Essential (primary) hypertension, I16.1 - Hypertensive emergency, I51.7 - Cardiomegaly, I51.89 - Other ill-defined heart diseases, Z98.890 - Other specified postprocedural states CRP High Sensitivity Today E11.65 - Type 2 diabetes mellitus with hyperglycemia, E55.9 - Vitamin D deficiency, unspecified, E66.01 - Morbid (severe) obesity due to excess calories, E66.3 - Overweight, F33.1 - Major depressive disorder, recurrent, moderate, I10 - Essential (primary) hypertension, I16.1 - Hypertensive emergency, I51.7 - Cardiomegaly, I51.89 - Other ill-defined heart diseases, Z98.890 - Other specified postprocedural states IRON PROFILE Today E53.8 - Deficiency of other specified B group vitamins, E55.9 - Vitamin D deficiency, unspecified, F33.1 - Major depressive disorder, recurrent, moderate, I10 - Essential (primary) hypertension, I16.1 - Hypertensive emergency, K21.9 - Gastro-esophageal reflux disease without esophagitis Referrals Sleep Medicine Referral G47.30 - Sleep apnea, unspecified, I10 - Essential (primary) hypertension Medications: New omeprazole 40 mg PO DAILY 90 caps 3RF gabapentin 100 mg PO BEDTIME 30 caps 2RF Changed From lisinopril 20 mg PO DAILY 30 days 90 tabs 6RF To lisinopril 20 mg PO DAILY 90 tabs 6RF 90 days Refilled atorvastatin 80 mg PO DAILY 90 tabs 3RF 90 days diclofenac sodium 1% 2 grams topical QID 100 grams 3RF nebulizers to use every 4 hours as needed for wheezing 1 ea 0RF Uncontrolled Asthma J45.909 - Unspecified asthma, uncomplicated amlodipine 10 mg PO BEDTIME 90 tabs 3RF 90 days cyclobenzaprine 10 mg PO TID PRN 90 tabs 3RF muscle spasm spironolactone 50 mg PO DAILY 90 tabs 3RF fluticasone propion-salmeterol 115-21 mcg/actuation 2 puffs inhalation BID 12 grams 5RF
--- OUTSIDE RECORDS SUMMARY | 2025-01-28 18:34 | XMS_ITS | Clinical Summary ---
Author Organization [employer] Address [address] [place] [address] 7t [place] [address] Care Team Providers Care Meat Grinder Name Role Phone Unavailable Primary Care Provider [...]
--- OUTSIDE RECORDS SUMMARY | 2025-01-28 18:34 | XMS_ITS | Clinical Summary ---
Author Organization [facility] Address [address] [place], [place] [id number] Phone Care Team Providers Care Furnace Maintenance Name Role Phone Derrek Hollingsworth MD Primary Care Provider [phone] Allergies Active Allergy Reactions Criticality Noted Date [...] Not on file Insurance [place] [facility] [place] [facility] [place] [facility] Care Teams Furnace Maintenance Relationship Specialty Start Date End Date Derrek Hollingsworth MD [address] [place] [address] [place] [address] PCP - General Internal Medicine 09/11/21 Additional Source Comments The information contained in this document represents components of the legal health record. It is not the complete legal health record.[facility]
== END 2025-01-28 17:38 | disposition home or self-care (01) ==
LOC: HO.HMCH 16:21
DX: I10 Essential (primary) hypertension (principal); M54.42 Lumbago with sciatica, left side; I63.9 Cerebral infarction, unspecified; E11.65 Type 2 diabetes mellitus with hyperglycemia; M54.41 Lumbago with sciatica, right side; G89.29 Other chronic pain; K21.9 Gastro-esophageal reflux disease without esophagitis; D64.9 Anemia, unspecified; G47.30 Sleep apnea, unspecified; F17.200 Nicotine dependence, unspecified, uncomplicated; J45.909 Unspecified asthma, uncomplicated; I51.7 Cardiomegaly

== ENCOUNTER → 2025-01-28 16:20 | Outpatient (BNVA) | payer OTHER, SELFPAY | DX: I10 Essential (primary) hypertension (principal); E78.5 Hyperlipidemia, unspecified; E66.9 Obesity, unspecified; J45.909 Unspecified asthma, uncomplicated; K42.9 Umbilical hernia without obstruction or gangrene; N20.0 Calculus of kidney; D17.79 Benign lipomatous neoplasm of other sites; M54.42 Lumbago with sciatica, left side; M54.41 Lumbago with sciatica, right side; G89.29 Other chronic pain; K21.9 Gastro-esophageal reflux disease without esophagitis; D64.9 Anemia, unspecified; G47.30 Sleep apnea, unspecified; E11.65 Type 2 diabetes mellitus with hyperglycemia; F17.210 Nicotine dependence, cigarettes, uncomplicated; Z79.51 Long term (current) use of inhaled steroids; Z68.34 Body mass index [BMI] 34.0-34.9, adult; Z86.73 Personal history of transient ischemic attack (TIA), and cerebral infarction without residual deficits | CPT/HCPCS: 99212 ==

== ENCOUNTER → 2025-01-30 11:42 | Outpatient (BNVA) | payer OTHER, SELFPAY | DX: I10 Essential (primary) hypertension (principal) | CPT/HCPCS: 99211 ==

== ENCOUNTER 2025-02-03 15:15 | Outpatient (REF) | payer OTHER, SELFPAY ==
[2025-02-03 16:22] LABS: Appearance Urine Clear; Glucose Urine UA >=1000 mg/dL (Negative); PH 6.0 (5.0-9.0); Specific Gravity - Urine 1.025 (1.005-1.025); UMIC TRIGGER UACC YES
[2025-02-03 17:00] LABS: Alanine Aminotransferase 11 U/L (0-31); Albumin Level 3.8 g/dL (3.5-5.0); Alkaline Phosphatase 87 U/L (39-117); Anion Gap 11 (12-20); Aspartate Amino Transferase 18 U/L (5-31); Blood Urea Nitrogen 9 mg/dL (9-16); Calcium 9.3 mg/dL (8.4-10.2); Carbon Dioxide 26 mmol/L (22-29); Chloride 104 mmol/L (96-108); Cholesterol 176 mg/dL (<200); Estimated Glomerular Filt Rate > 60; HDL Cholesterol 33 mg/dL (>40); Iron 21 mcg/dL (30-160); Percent Iron Saturation 7 % (15-50); Potassium 4.0 mmol/L (3.3-5.1); Sodium 137 mmol/L (135-145); Total Iron Binding Capacity 312 mcg/dL (228-428); Total Protein 7.4 g/dL (6.5-8.0); Triglycerides 148 mg/dL (<150); Unsaturated Iron Binding 291 ug/dL
[2025-02-03 17:18] LABS: Uric Acid 3.3 mg/dL (2.4-5.7)
--- OUTSIDE RECORDS SUMMARY | 2025-02-03 17:22 | XMS_ITS | Clinical Summary ---
Author Organization [facility] Address [address] [place], [place] [id number] Phone Care Team Providers Care Net Mender Name Role Phone Derrek Hollingsworth MD Primary Care Provider [phone] Allergies Active Allergy Reactions Criticality Noted Date [...] Not on file Insurance [place] [facility] [place] [facility] [place] [facility] Care Teams Net Mender Relationship Specialty Start Date End Date Derrek Hollingsworth MD [address] [place] [address] [place] [address] PCP - General Internal Medicine 09/11/21 Additional Source Comments The information contained in this document represents components of the legal health record. It is not the complete legal health record.[facility]
== END 2025-02-03 15:16 | disposition home or self-care (01) ==
LOC: HO.LAB 15:15
DX: I10 Essential (primary) hypertension (principal); E11.65 Type 2 diabetes mellitus with hyperglycemia; E53.8 Deficiency of other specified B group vitamins; K21.9 Gastro-esophageal reflux disease without esophagitis; F33.1 Major depressive disorder, recurrent, moderate; I16.1 Hypertensive emergency; E66.01 Morbid (severe) obesity due to excess calories; E66.3 Overweight; E55.9 Vitamin D deficiency, unspecified; Z98.890 Other specified postprocedural states
CPT/HCPCS: 36415; 80053; 80061; 81001; 82306; 83540; 84443; 84550; 85652; 86141

== ENCOUNTER 2025-03-24 12:30 | Outpatient (AMB) | payer OTHER, SELFPAY ==
[2025-03-24 12:32] VITALS: BP 180/91; PULSE 92; RESP 18; TEMP 37.5; O2SAT 97; BMI 35.5
--- NOTE | 2025-03-24 12:32 | MHC.OFFWIV ---
Intake Vital Signs 03/24/25 12:32 Height 5 ft 2 in Weight 194 lb BMI 35.5 BP 180/91 H Blood Pressure Location Lt brachial Position Sitting Respiration 18 Pulse 92 Pulse Source Pulse Oximeter Temp 99.5 F Temp Source Oral Pulse Oximetry (%) 97 Oxygen Delivery Method Room Air Intake Visit Reasons: EP - Bilateral Upper/Lower Extremity Tingling, Intake Note: EP complains of bottom lip, upper and lower extremities swelling, numbness and tingling since the last three days. She has high blood pressure as well. Patient Tobacco Use Status: Never used Tobacco Allergies Iodinated Contrast Media Allergy (Intermediate, Verified 03/24/25 12:46) Anaphylaxis latex Adverse Reaction (Verified 03/24/25 14:33) Hives Do you need a note to return to daycare/school/sports/work: Yes HPI HPI Comments History of Present Illness Details Patient is a 44-year-old female with a past medical history of uncontrolled type 2 diabetes mellitus, hypertension, history of CVA, CAD, GERD, asthma who presents with fatigue, headaches, tingling, dizziness, and increased shortness of breath. - The patient reports a three-day history of symptoms, including fatigue, headaches, tingling, dizziness, and shorntess of breath - She describes tingling in her hands and legs, which she currently feels in her lips as well. - Swelling in her hands and legs started yesterday (R>L), which decreased during her workday but worsened again last night. - The patient has a history of chronically high blood pressure - She takes blood pressure medication, and her lisinopril dose was increased to 40 mg twice a day a few weeks ago - Patient is also on spironolactone and amlodipine which reports she has been taking as prescribed - She experienced a migraine-like pressure headache the day before yesterday, which was relieved by Tylenol. - Currently, she reports feeling pressure in the back of her head. - She also reports intermittent dizziness, which she reports she has some dizziness currently - The patient reports shortness of breath that is more than usual, occurring both with walking and while sitting down. - She has a history of asthma and has been using her rescue inhaler, but reports it does not help her symptoms. - She also notes intermittent pinching chest pain on the right side. - She reports intermittent blurry vision with floaters Review of Systems - Constitutional: Reports significant fatigue, feeling drained, and a sensation of heaviness. - Neurological: Reports numbness and tingling in her hands, legs, and lips. Reports a current pressure-like headache. - Eyes: Reports intermittent blurry vision and floaters. - ENT: Reports dry mouth and increased thirst. - Cardiovascular: Reports swelling in her hands and legs. Reports right sided chest pain without palpitations - Respiratory: Reports dyspnea, which is worse than her baseline, occurring with exertion and at rest. -Gastrointestinal: Reports nausea. Denies vomiting or diarrhea. - Musculoskeletal: Reports bilateral hand swelling (R>L) Physical Exam General Appearance: No acute distress HEENT: Normocephalic, atraumatic, No swelling of the lips noted. Clear oropharynx with enlarged tonsils noted. Cardiac: RRR. No M/R/G Pulmonary: No respiratory distress. Speaking in full sentences. Clear to auscultation bilaterally Musculoskeletal: Moving all extremities spontaneously and against gravity. Patient noted to have non pitting edema of both hands (R>L). No pitting edema noted of the lower extremities. Neurological: Cranial nerves 2-12 tested and intact. Sensation equal in upper and lower extremities. Strength 4/5 in upper extremities. Normal gait. Mental Status: Alert and Oriented x 3 Psychiatric: Normal mood. Normal affect. [facility] Medical History Hypertensive emergency Diabetes mellitus with diabetic nephropathy Hypertension Acute non-ST elevation myocardial infarction (NSTEMI) UTI (urinary tract infection) Anemia Bilateral hand numbness Bilateral hand pain HSV (herpes simplex virus) infection Smoking TIA (transient ischemic attack) DJD (degenerative joint disease) GERD (gastroesophageal reflux disease) Asthma Obesity Diabetes mellitus HTN (hypertension) Surgical History H/O cardiac catheterization Hx of tubal ligation Hx of cholecystectomy Hx of appendectomy Hx of section Family History Mother Heart disease Diabetes Hypertension Hyperlipidemia Fibromyalgia Father No problems noted. Brother No problems noted. Brother No problems noted. Brother No problems noted. Sister Deep vein thrombosis Son No problems noted. Son No problems noted. Daughter Hypertension Daughter No problems noted. Maternal Aunt History of breast cancer Social History Household Members: Family Housing: Apartment Do you presently have visiting nurse or other home services: No Alcohol intake: current Alcohol intake frequency: holidays/special occasions only Patient Tobacco Use Status: Never used Tobacco Tobacco use type: Cigarette Cigarettes Per Day: 3 e-Cigarette/Vaping Use: Never Used Second Hand Smoke Exposure: No Do you have a plan to hurt others: No Plan service: No Current occupational status: employed Cognitive needs: No Hearing needs: No Vision needs: Yes (glasses) Female Reproductive History Menstrual Age of Menarche: 12 Physical Exam Vital Signs: Last Vital Signs Temp 99.5 F 03/24/25 12:32 Pulse 92 03/24/25 12:32 Resp 18 03/24/25 12:32 BP 180/91 H 03/24/25 12:32 Pulse Ox 97 03/24/25 12:32 Oxygen Delivery Method Room Air 03/24/25 12:32 BMI result Body Mass Index 35.5 Assessment & Plan Assessment & Plan (1) Hypertensive urgency: Code(s): I16.0 - Hypertensive urgency Plan - The patient presents with a concerning combination of new-onset headaches, dizziness, increased shortness of breath, paresthesia, and edema, all in the setting of chronically uncontrolled blood pressure. - Given the constellation of symptoms, the patient is being sent to the emergency room for further evaluation to rule out a serious underlying condition. - Discussed performing an EKG in office, however patient opted to have EKG performed in the hospital. - Patient requesting to go to [facility] ER by private vehicle. Patient reports that her will drive her directly to the hospital. - Report given to [facility] ED Patient was informed and verbally consented to the use of an ambient scribe for clinic note documentation during the visit. Coding Level of Care Code Est Pt Level 5 (87894) Diagnoses Hypertensive urgency I16.0
--- OUTSIDE RECORDS SUMMARY | 2025-03-24 14:27 | XMS_ITS | Clinical Summary ---
Author Organization [facility] Address [address] [place], [place] [id number] Phone Care Team Providers Care Shingle Inspector Name Role Phone Derrek Hollingsworth MD Primary Care Provider [phone] Allergies Active Allergy Reactions Criticality Noted Date [...] Not on file Insurance [place] [facility] [place] [facility] [place] [facility] Care Teams Shingle Inspector Relationship Specialty Start Date End Date Derrek Hollingsworth MD [address] [place] [address] [place] [address] PCP - General Internal Medicine 09/11/21 Additional Source Comments The information contained in this document represents components of the legal health record. It is not the complete legal health record.[facility]
== END 2025-03-24 13:23 | disposition home or self-care (01) ==
LOC: HO.HMCWIS 12:30
PROVIDERS: Visit Provider Family Medicine
DX: I16.0 Hypertensive urgency (principal)

== ENCOUNTER → 2025-03-24 12:30 | Outpatient (BNVA) | payer OTHER, SELFPAY | PROVIDERS: Visit Provider Family Medicine | DX: I16.0 Hypertensive urgency (principal); R51.9 Headache, unspecified; R42 Dizziness and giddiness; R06.02 Shortness of breath; R20.2 Paresthesia of skin; R60.9 Edema, unspecified | CPT/HCPCS: 99212 ==

== ENCOUNTER 2025-03-24 13:44 | Emergency (ER) | payer OTHER, SELFPAY ==
--- NOTE | ~2025-03-24 | XR_ITS ---
EXAMINATION: XR CHEST CLINICAL INFORMATION: chest pain COMPARISON: 01/22/2025. TECHNIQUE: 2 views of the chest were obtained. FINDINGS: Mild cardiac enlargement. Mediastinal and hilar contours are normal. The lungs are clear bilaterally. There is no pneumothorax or pleural effusion. There is no focal osseous or soft tissue abnormality. Cholecystectomy clips are present. XR/XR chest 2V IMPRESSION: 1. Mild cardiac enlargement. 2. No active pulmonary disease. Electronically signed by: Get Austin MD 03/24/2025 02:51 PM EST
[2025-03-24 14:28] VITALS: BP 187/88; PULSE 91; RESP 18; TEMP 36.8; O2SAT 99; BMI 35.7
--- NOTE | 2025-03-24 14:30 | ED_ITS ---
HPI - General Adult General Chief complaint: General Medical Stated complaint: Tingling In Hands/ Feet/ Mouth, Shortness of Breat Related Data Previous Rx's ?Medication ?Instructions ?Recorded blood-glucose meter (FreeStyle #1 ea 09/05/20 Busby kit) acetone (urine) test (Ketone Urine #50 ea 12/08/23 Test strips) albuterol sulfate 90 mcg/actuation 2 inh inhalation Q4 -6H PRN 08/20/24 breath activated powder shortness of breath or wheez ing #1 inhaler,sensor ea aspirin 81 mg tablet,delayed 81 mg PO DAILY 90 days #9 0 tabs 08/20/24 release alcohol swabs #200 ea 09/19/24 blood-glucose meter (FreeStyle #1 ea 09/19/24 Lite Meter kit) blood-glucose sensor (Dexcom G7 #3 ea 09/19/24 Sensor device) insulin degludec 200 unit/mL (3 60 unit (0.3 mL) subcu t DAILY 30 09/19/24 mL) subcutaneous pen (Tresiba days #9 mL FlexTouch U-200 insulin) insulin lispro 100 unit/mL 16 unit (0.16 mL) subcut TI D 42 30 09/19/24 subcutaneous pen (Humalog KwikPen days #15 mL (U-100) Insulin) lancets 28 gauge (FreeStyle #150 ea 09/19/24 Lancets) metformin 1,000 mg tablet 1,000 mg PO BID #180 tabs pen needle, diabetic 32 gauge x #100 ea 09/19/24 5/16 (Comfort EZ Pen Wenonah) semaglutide 0.25 mg or 0.5 mg (2 0.5 mg (0.736 mL) sub cut QWEEK 28 09/24/24 mg/3 mL) subcutaneous pen injector days #3 mL (Ozempic) albuterol sulfate 0.63 mg/3 mL 0.63 mg (3 mL) inhalati on Q4-6H 01/01/25 solution for nebulization PRN shortness of breath or wheezing #90 mL cefuroxime axetil 500 mg tablet 500 mg PO BID 7 days # 14 tabs 01/22/25 ondansetron 4 mg disintegrating 4 mg PO Q8H PRN nausea and 01/22/25 tablet vomiting #10 tabs phenazopyridine 200 mg tablet 200 mg PO TID PRN pain ( scale 01/22/25 (Pyridium) score 4-6) 6 doses #6 tabs clotrimazole-betamethasone 1 1 appl topical BID #15 gr ams 01/24/25 %-0.05 % topical cream levofloxacin 500 mg tablet 500 mg PO DAILY #7 tabs amlodipine 10 mg tablet 10 mg PO BEDTIME 90 days #90 tabs 01/28/25 atorvastatin 80 mg tablet 80 mg PO DAILY 90 days #90 t abs 01/28/25 cyclobenzaprine 10 mg tablet 10 mg PO TID PRN muscle s pasm #90 01/28/25 tabs diclofenac sodium 1 % topical gel 2 g topical QID #100 grams 01/28/25 fluticasone propionate 115 2 puff inhalation BID #12 g jason 01/28/25 mcg-salmeterol 21 mcg/actuation HFA inhaler gabapentin 100 mg capsule 100 mg PO BEDTIME #30 caps 1 03/30/24 nebulizers #1 ea 01/28/25 omeprazole 40 mg capsule,delayed 40 mg PO DAILY #90 ca ps 01/28/25 release spironolactone 50 mg tablet 50 mg PO DAILY #90 tabs lisinopril 20 mg tablet 40 mg (2 x 20 mg) PO DAILY 9 0 days 01/30/25 #180 tabs cholecalciferol (vitamin D3) 50 50 mcg PO DAILY #90 ca ps 02/03/25 mcg (2,000 unit) capsule iron,carbonyl 65 mg-vitamin C 125 1 tab PO DAILY #30 t abs 02/11/25 mg tablet,delayed release (Vitron-C) Allergies Allergy/AdvReac Type Severity Reaction Status Date / Time Iodinated Contrast Media Allergy Intermediate Anaphylaxis Verified 03/24/25 12:46 latex AdvReac Hives Verified 03/24/25 14:33 [facility] Past Medical History Medical History Hypertensive emergency Diabetes mellitus with diabetic nephropathy Hypertension Acute non-ST elevation myocardial infarction (NSTEMI) UTI (urinary tract infection) Anemia Bilateral hand numbness Bilateral hand pain HSV (herpes simplex virus) infection Smoking TIA (transient ischemic attack) DJD (degenerative joint disease) GERD (gastroesophageal reflux disease) Asthma Obesity Diabetes mellitus HTN (hypertension) Surgical History H/O cardiac catheterization Hx of tubal ligation Hx of cholecystectomy Hx of appendectomy Hx of section Family History Family History Mother Heart disease Diabetes Hypertension Hyperlipidemia Fibromyalgia Father No problems noted. Brother No problems noted. Brother No problems noted. Brother No problems noted. Sister Deep vein thrombosis Son No problems noted. Son No problems noted. Daughter Hypertension Daughter No problems noted. Maternal Aunt History of breast cancer Social History Social History Household Members: Family Housing: Apartment Do you presently have visiting nurse or other home services: No Alcohol intake: current Alcohol intake frequency: holidays/special occasions only Patient Tobacco Use Status: Never used Tobacco Tobacco use type: Cigarette Cigarettes Per Day: 3 e-Cigarette/Vaping Use: Never Used Second Hand Smoke Exposure: No Advance Directives: No Advance Directives Information Provided: No Do you have a plan to hurt others: No Plan service: No Current occupational status: employed Cognitive needs: No Hearing needs: No Vision needs: Yes (glasses) Physical Exam ED Vital Signs: Vital Signs - 24 hr 03/24/25 14:28 Temperature 98.3 F Pulse Rate 91 Respiratory Rate 18 Blood Pressure 187/88 H Pulse Oximetry 99 BMI result Body Mass Index 35.7 Course Course Course Narrative: Rapid medical examination performed in triage by Madiha Baires PA-C: Patient is a 44 year old female presenting to the emergency department with shortness of breath, numbness tingling, and feeling generally unwell. Detailed physical exam and review of systems are deferred to the camera tuning engineer. EKG, labs, imaging, swabs ordered. Patient placed back in the waiting room pending room availability and results. Patient left the department without completing treatment. Patient left the department before myself or any of the other emergency department clinicians could explain to or review with the patient; physical exam findings, test results, need or lack there of for additional testing, need or lack there of for a procedure to be performed, need or lack there of for hospital admission / transfer, need or lack there of for prescription medication, treatment options, or a treatment plan. Patient's limited physical exam performed in triage showed a non-toxic individual with appropriate breathing, alert and oriented, and ambulating without assistance. Medical Decision Making Lab Data 03/24/25 15:01 03/24/25 15:01 Labs: Lab Results 03/24/25 Range/Units 15:01 WBC 12.2 H (4.8-10.8) X10*3/uL RBC 5.20 (4.20-5.50) X10*6/uL Hgb 11.9 L (12.0-16.0) g/dl Hct 38.0 (37.0-47.0) % MCV 73.1 L (80.0-98.0) fL MCH 22.9 L (27.0-33.0) pg MCHC 31.3 (31.0-35.0) g/dl RDW 16.7 H (11.0-16.0) % Plt Count 292 (160-400) X10*3/uL MPV 11.0 (9.4-12.3) fL Immature Gran % (Auto) 0.3 (0.0-0.4) % Neut % (Auto) 63.9 (45-73) % Lymph % (Auto) 26.6 (20-40) % [place] % (Auto) 5.4 (2-11) % Eos % (Auto) 3.5 (0-4) % Baso % (Auto) 0.3 (0-2) % Lymph # (Auto) 3.2 (1.2-4.9) X10*3/uL Sweet [place] # (Auto) 0.7 (0.1-1.2) X10*3/uL Eos # (Auto) 0.4 (0.0-0.4) X10*3/uL Baso # (Auto) 0.0 (0.0-0.2) X10*3/uL Abs Immat Gran (auto) 0.04 H (0.00-0.03) X10*3/uL Absolute Neuts (auto) 7.8 (2.0-8.3) x10*3/uL Absolute Nucleated RBC 0.000 (0.0-0.012) X10*3/uL Nucleated RBC % (auto) 0.0 (0.0-0.2) /100WBC Sodium 136 (135-145) mmol/L Potassium 4.1 (3.3-5.1) mmol/L Chloride 105 (96-108) mmol/L Carbon Dioxide 26 (22-29) mmol/L Anion Gap 9 L (12-20) BUN 13 (9-16) mg/dL Creatinine 0.86 (0.5-1.4) mg/dL Estim Creat Clear Calc 85.3 Estimated GFR > 60 Random Glucose 412 H* (60-115) mg/dL Calcium 9.0 (8.4-10.2) mg/dL Magnesium 1.7 (1.6-2.6) mg/dL Total Bilirubin 0.3 (0.0-1.0) mg/dL AST 17 (5-31) U/L ALT 14 (0-31) U/L Alkaline Phosphatase 93 (39-117) U/L Troponin I High Sens 57.4 H* (<3.5-17.0) ng/L NT-Pro-B Natriuret Pep 676.5 H (<300) pg/mL Total Protein 7.0 (6.5-8.0) g/dL Albumin 3.8 (3.5-5.0) g/dL Influenza Type A (PCR) NEGATIVE (Negative) Influenza Type B (PCR) NEGATIVE (Negative) RSV RNA Qual (PCR) NEGATIVE (Negative) SARS-CoV-2 RNA (RT-PCR) NEGATIVE (Negative) Discharge Plan Discharge Clinical Impression: Paresthesias Patient Disposition: Left W/O Completing Treatment Prescriptions: No Action albuterol sulfate 0.63 mg/3 mL solution for nebulization 0.63 mg inhalation Q4-6H PRN (Reason: shortness of breath or wheezing) Qty: 90 0RF Rx Instructions: May dispense medication equivalent accepted by patient's insurance lisinopril 20 mg tablet 40 mg PO DAILY 90 Days Qty: 180 6RF cholecalciferol (vitamin D3) 50 mcg (2,000 unit) capsule 50 mcg PO DAILY Qty: 90 3RF Vitron-C 65 mg iron- 125 mg tablet,delayed release (DR/EC) 1 tab PO DAILY Qty: 30 3RF (DME) blood-glucose meter [FreeStyle Busby] Kit See Rx Instructions .ROUTE .MEDSUPPLY Qty: 1 0RF Rx Instructions: As directed cefuroxime axetil 500 mg tablet 500 mg PO BID 7 Days Qty: 14 0RF ondansetron 4 mg tablet,disintegrating 4 mg PO Q8H PRN (Reason: nausea and vomiting) Qty: 10 0RF phenazopyridine [Pyridium] 200 mg tablet 200 mg PO TID PRN (Reason: pain (scale score 4-6)) Qty: 6 0RF levofloxacin 500 mg tablet 500 mg PO DAILY Qty: 7 0RF clotrimazole-betamethasone 1-0.05 % cream 1 appl topical BID Qty: 15 0RF aspirin 81 mg tablet,delayed release (DR/EC) 81 mg PO DAILY 90 Days Qty: 90 8RF albuterol sulfate 90 mcg/actuation aero powdr breath act w/sensor 2 inh inhalation Q4-6H PRN (Reason: shortness of breath or wheezing) Qty: 1 0RF Rx Instructions: May dispense medication equivalent accepted by patient's insurance amlodipine 10 mg tablet 10 mg PO BEDTIME 90 Days Qty: 90 3RF atorvastatin 80 mg tablet 80 mg PO DAILY 90 Days Qty: 90 3RF cyclobenzaprine 10 mg tablet 10 mg PO TID PRN (Reason: muscle spasm) Qty: 90 3RF diclofenac sodium 1 % gel 2 g topical QID Qty: 100 3RF spironolactone 50 mg tablet 50 mg PO DAILY Qty: 90 3RF fluticasone propion-salmeterol 115-21 mcg/actuation HFA aerosol inhaler 2 puff inhalation BID Qty: 12 5RF (DME) nebulizers Mis See Rx Instructions .Route Qty: 1 0RF Rx Instructions: to use every 4 hours as needed for wheezing omeprazole 40 mg capsule,delayed release(DR/EC) 40 mg PO DAILY Qty: 90 3RF gabapentin 100 mg capsule 100 mg PO BEDTIME Qty: 30 2RF (DME) Ketone Urine Test Strip See Rx Instructions .ROUTE .MEDSUPPLY Qty: 50 1RF Rx Instructions: As directed prn over 250, nausea, vomiting, illness tid insulin lispro [Humalog KwikPen Insulin] 100 unit/mL insulin pen 16 unit subcut TID 30 Days Qty: 15 3RF insulin degludec [Tresiba FlexTouch U-200] 200 unit/mL (3 mL) insulin pen 60 unit subcut DAILY 30 Days Qty: 9 6RF (DME) pen needle, diabetic [Comfort EZ Pen Wenonah] 32 gauge x 5/16 needle See Rx Instructions .Route Qty: 100 4RF Rx Instructions: As directed injects 4X/day (DME) blood-glucose meter [FreeStyle Lite Meter] Kit See Rx Instructions .Route Qty: 1 0RF Rx Instructions: As directed (DME) lancets [FreeStyle Lancets] 28 gauge misc See Rx Instructions .ROUTE .MEDSUPPLY Qty: 150 1RF Rx Instructions: 4 times a day prn sensor failure or to confirm glucose (DME) Dexcom G7 Sensor Device See Rx Instructions .ROUTE .MEDSUPPLY Qty: 3 11RF Rx Instructions: As directed every ten days metformin 1,000 mg tablet 1,000 mg PO BID Qty: 180 2RF (DME) alcohol swabs pad See Rx Instructions .Route .MEDSUPPLY Qty: 200 3RF Rx Instructions: As directed Ozempic 0.25 mg or 0.5 mg (2 mg/3 mL) pen injector 0.5 mg subcut QWEEK 28 Days Qty: 3 6RF Rx Instructions: for 4 weeks Discharge Date/Time: 03/24/25 21:11
--- NOTE | 2025-03-24 14:31 | ECG_ITS ---
Test Reason : SOB CHEST PAIN Blood Pressure : */* mmHG Vent. Rate : 84 BPM Atrial Rate : 84 BPM P-R Int : 146 ms QRS Dur : 84 ms QT Int : 386 ms P-R-T Axes : 4 -28 151 degrees QTcB Int : 456 ms Normal sinus rhythm Moderate voltage criteria for LVH, may be normal variant ( R in aVL , [place] product ) Septal infarct (cited on or before 22-Jan-2025) Abnormal ECG When compared with ECG of 22-Jan-2025 11:09, No significant change was found Referred By: Madiha Baires Electronically Signed By: LAURA RIDDLE
[2025-03-24 15:07] LABS: MANUAL DIFF FLAG NO
[2025-03-24 15:10] LABS: Hematocrit 38.0 % (37.0-47.0); Hemoglobin 11.9 g/dl (12.0-16.0); Imm Gran Abs Auto 0.04 X10*3/uL (0.00-0.03); Imm Gran Pct Auto 0.3 % (0.0-0.4); Lymphocytes Absolute Auto 3.2 X10*3/uL (1.2-4.9); Mean Corpuscular HGB Conc 31.3 g/dl (31.0-35.0); Mean Corpuscular Hemoglobin 22.9 pg (27.0-33.0); Mean Corpuscular Volume 73.1 fL (80.0-98.0); NRBC Abs Auto 0.000 X10*3/uL (0.0-0.012); NRBC Pct Auto 0.0 /100WBC (0.0-0.2); Platelet Count 292 X10*3/uL (160-400); Red Blood Count 5.20 X10*6/uL (4.20-5.50); White Blood Count 12.2 X10*3/uL (4.8-10.8)
[2025-03-24 15:36] LABS: Troponin-I High Sensitivity 57.4 ng/L (<3.5-17.0)
[2025-03-24 15:37] LABS: Alanine Aminotransferase 14 U/L (0-31); Albumin Level 3.8 g/dL (3.5-5.0); Alkaline Phosphatase 93 U/L (39-117); Anion Gap 9 (12-20); Aspartate Amino Transferase 17 U/L (5-31); Blood Urea Nitrogen 13 mg/dL (9-16); Calcium 9.0 mg/dL (8.4-10.2); Carbon Dioxide 26 mmol/L (22-29); Chloride 105 mmol/L (96-108); Creatinine Clr Calc Pharmacy 85.3; Estimated Glomerular Filt Rate > 60; Magnesium 1.7 mg/dL (1.6-2.6); Potassium 4.1 mmol/L (3.3-5.1); Sodium 136 mmol/L (135-145); Total Protein 7.0 g/dL (6.5-8.0)
[2025-03-24 15:50] LABS: Resp Syncy Virus RNA Qual PCR NEGATIVE (Negative); SARS COV2 PCR INHOUSE NEGATIVE (Negative)
[2025-03-24 16:28] LABS: NT Pro B Type Natriuretic Pept 676.5 pg/mL (<300)
== END 2025-03-24 21:11 | disposition left against medical advice (07) ==
PROVIDERS: Physician Assistant Medical; Emergency Provider Emergency Medicine
DX: R20.2 Paresthesia of skin (principal); R06.02 Shortness of breath; R07.89 Other chest pain; E11.9 Type 2 diabetes mellitus without complications; Z03.818 Encounter for observation for suspected exposure to other biological agents ruled out; Z79.4 Long term (current) use of insulin; Z79.899 Other long term (current) drug therapy
CPT/HCPCS: 36415; 71046; 80053; 83735; 83880; 84484; 85025; 87637; 93005; 99283

== ENCOUNTER → 2025-03-24 14:31 | Outpatient (BNV) | payer OTHER, SELFPAY | PROVIDERS: Visit Provider Radiology Diagnostic Radiology | DX: R07.9 Chest pain, unspecified (principal) | CPT/HCPCS: 71046 ==

== ENCOUNTER → 2025-03-24 14:31 | Outpatient (BNV) | payer OTHER, SELFPAY | PROVIDERS: Visit Provider Internal Medicine | DX: I25.2 Old myocardial infarction (principal) | CPT/HCPCS: 93010 ==

== ENCOUNTER 2025-03-25 13:58 | Outpatient (AMB) | payer OTHER, SELFPAY ==
[2025-03-25 14:41] VITALS: BP 136/90; PULSE 91; O2SAT 95
--- NOTE | 2025-03-25 14:41 | MHC.OFFVIS ---
Vital Signs 03/25/25 14:41 Height 5 ft 2 in BP 136/90 H Blood Pressure Location Rt brachial Position Sitting Pulse 91 Pulse Source Pulse Oximeter Pulse Oximetry (%) 95 Oxygen Delivery Method Room Air Intake Visit Reasons: INP- Sleep Apnea Intake Note: Patient presents [facility] KALLIE. Patient was diagnosed with severe sleep apnea. Per patient, she was told about the diagnosis but is unaware of machine. PSG from 2022 in chart(AHI-20.4, REM AHI-33.2 JACOB-79%). Never received CPAP. Hard time falling/staying sleep. States always tired. Can fall asleep anywhere if not active. Accompanied by: Self / Same As Patient Allergies Iodinated Contrast Media Allergy (Intermediate, Verified 03/25/25 14:43) Anaphylaxis latex Adverse Reaction (Verified 03/25/25 14:43) Hives HPI Comments Details: 44 year old female is a new pt referral to us by her PCP for an evaluation of sleep difficulties. Interim Med Hx pt was seen at the urgent care on Feb due to HTN, BP was 187/88 and sent to the ED at [facility] [place], where she was hospitalized and labs completed her blood sugar was 412, troponins 67, and BNP was 665. She had a ctscan to r/o TIA. PSG 12/2022 c/w severe kallie AHI is 54 with mixed obstructive and central apneas, o2 desaturation below 88% for 9min and PLM 4/hr, pt never started therapy on cpap as she was unable to attend titration. For the last 2 years she has been having sleep difficulties and for the last 3 months she says she can fall asleep anywhere. She goes to bed around midnight, snores loudly gasps for air and wakes up for the bathroom at least 5-6x a night. She has T2DM being managed on insulin, metformin and ozempic. She is chronically fatigued, wakes up at 5:30am for work as a [employer]. She has morning headaches daily lasting all day, takes baby aspirin and symptoms can improve. She has blurry vision, with spots in her peripheral vision photophobia and phonophobia, pressure in her eyes, with 10/10 throbbing pain. She has a gushing noise in her ears bilaterally and has dizziness with standing or walking along with nausea, denies vomiting, vertigo, and balance or gait issues. She turns off the lights and lays down in a dark room, once she has a headache, this usually helps to decrease the symptoms. 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 She has trouble walking due to the pain during the daytime, has excessive daytime sleepiness and naps daily for 1 hour if able. Memory is foggy, mood is stable and diet is poor. Denies parasomnias, abnormal sleep behaviors. She is a current smoker 3 cig/day. Denies MJ, vaping, edibles and alcohol use. [facility] Medical History Hypertensive emergency Diabetes mellitus with diabetic nephropathy Hypertension Acute non-ST elevation myocardial infarction (NSTEMI) UTI (urinary tract infection) Anemia Bilateral hand numbness Bilateral hand pain HSV (herpes simplex virus) infection Smoking TIA (transient ischemic attack) DJD (degenerative joint disease) GERD (gastroesophageal reflux disease) Asthma Obesity Diabetes mellitus HTN (hypertension) Surgical History H/O cardiac catheterization Hx of tubal ligation Hx of cholecystectomy Hx of appendectomy Hx of section Family History Mother Heart disease Diabetes Hypertension Hyperlipidemia Fibromyalgia Father No problems noted. Brother No problems noted. Brother No problems noted. Brother No problems noted. Sister Deep vein thrombosis Son No problems noted. Son No problems noted. Daughter Hypertension Daughter No problems noted. Maternal Aunt History of breast cancer Social History Household Members: Family Housing: Apartment Do you presently have visiting nurse or other home services: No Alcohol intake: current Alcohol intake frequency: holidays/special occasions only Patient Tobacco Use Status: Never used Tobacco Tobacco use type: Cigarette Cigarettes Per Day: 3 e-Cigarette/Vaping Use: Never Used Second Hand Smoke Exposure: No service: No Current occupational status: employed Cognitive needs: No Hearing needs: No Vision needs: Yes (glasses) Female Reproductive History Menstrual Age of Menarche: 12 Physical Exam Vital Signs: Last Vital Signs Pulse 91 03/25/25 14:41 BP 136/90 H 03/25/25 14:41 Pulse Ox 95 03/25/25 14:41 Oxygen Delivery Method Room Air 03/25/25 14:41 Const General: cooperative and no acute distress Nutritional Appearance: obese Orientation/consciousness: patient oriented x3 HEENT Face and sinus: Yes face symmetric Teeth and gingiva: other (mallampti score is 3) Eyes Pupils: Equal, round and reactive pupils present Neck Neck: Yes full ROM Resp Effort & Inspection: normal respiratory effort and able to speak in complete sentences Neuro General: patient oriented x3 and moves all extremities Cranial nerves: Yes Equal, round and reactive pupils present, Yes Normal accommodation reflex present, Yes Normal facial strength present, Yes Ability to bilaterally rotate head present and Yes Ability to bilaterally elevate shoulders present Motor exam (neuro): 5/5 motor strength present throughout and Normal motor muscle tone present throughout Psych Appearance: grossly normal Speech and movement: Normal speech and movement present Thought process: Normal thought process present Results Reviewed Results Reviewed: 2023 MR/MR head/brain wo con IMPRESSION: 1. There is a small focus of increased diffusion signal without restriction in the left periventricular white matter, which may be consistent with an evolving subacute infarct. There are no other areas of acute infarction and no hemorrhage is demonstrated. No masses are demonstrated. 2. There are nonspecific white matter changes as described above. 3. There is paranasal sinus disease as described above. 07/[address] Findings: No acute hemorrhage. No extra-axial fluid collection. No hydrocephalus, mass-effect or herniation. Bynum-white differentiation is maintained. There is patchy hypoattenuation of the periventricular and deep white matter, which is most likely the sequela of moderate chronic small vessel ischemic disease and is similar to the prior studies, advanced for age. No acute orbital pathology. No acute soft tissue abnormality. No fracture. Mucosal thickening in the paranasal sinuses may indicate sinusitis. The mastoid air cells are clear. Impression: No acute intracranial findings. XR/XR chest 2V IMPRESSION: 1. Mild cardiac enlargement. 2. No active pulmonary disease. Labs reviewed with pt. Assessment & Plan Assessment & Plan (1) KALLIE (obstructive sleep apnea): Comment: severe AHI is 54/hr O2 desaturation <88% for over 9min Code(s): G47.33 - Obstructive sleep apnea (adult) (pediatric) Category: Medical (2) Loud snoring: Code(s): R06.83 - Snoring Category: Medical (3) Vitamin B12 deficiency: Code(s): E53.8 - Deficiency of other specified B group vitamins Category: Medical (4) Vitamin D deficiency: Code(s): E55.9 - Vitamin D deficiency, unspecified Category: Medical (5) Persistent headaches: Code(s): R51.9 - Headache, unspecified Category: Medical (6) Paresthesias: Code(s): R20.2 - Paresthesia of skin Category: Medical (7) Excessive daytime sleepiness: Code(s): G47.19 - Other hypersomnia Category: Medical Plan PSG in lab with titration is needed to determine optimal pressures for therapy pt had a psg in 2022 and has severe kallie, AHI is 54/hr and Oxygen desaturation to <88% for over 9 min with PLMD. RLS/ PLMD will monitor and start her on a dopamine agonist with Nidra for RLS, once DKA is managed, pt blood sugar is 412 and bp is still elevated today at 136/90 though improved since yesterday 187/88, she was seen at the ED at [facility] [place]. continue Gabapentin 100mg qpm. Headaches Topiramate 25mg po qpm. Pt is advised to return to ED for intravenous fluids and management of blood sugars and blood pressure. BnP and Troponins are elvated on labs, explained to pt the severity of her condition and she verbalizes understanding and agrees to return to the ED for further management. F/U in 3 months I will call and f/u with results and next steps to start cpap therapy once titration study is completed. Will cc her pcp AUGIE Resendez. Orders: Orders RT PSG in-lab sleep titration Today G47.33 - Obstructive sleep apnea (adult) (pediatric), R06.83 - Snoring RT PSG in-lab sleep study Today G47.33 - Obstructive sleep apnea (adult) (pediatric), R06.83 - Snoring Medications: New topiramate XR 25 mg PO DAILY 90 caps 2RF 3 months Coding Level of Care Code New Pt Level 4 (61029) Diagnoses KALLIE (obstructive sleep apnea) G47.33 Loud snoring R06.83 Vitamin B12 deficiency E53.8 Vitamin D deficiency E55.9 Persistent headaches R51.9 Paresthesias R20.2 Excessive daytime sleepiness G47.19 Sleep Questionnaire Difficulty falling asleep: No Difficulty staying asleep?: Yes Number of arousals: 5 Snoring: Yes Witnessed apneas: Yes Gasping arousals: Yes Nocturia: Yes GERD: Yes Vivid dreams: Yes Acting out dreams: No Abnormal behavior in sleep: No Abnormal movements in sleep: No Morning headaches: Yes Excessive daytime sleepiness: Yes Daytime naps: Yes Restless legs: Yes Hallucinations: No Sleep paralysis: No Drop attacks: No Sleep Study: Yes
--- OUTSIDE RECORDS SUMMARY | 2025-03-25 17:47 | XMS_ITS | Clinical Summary ---
Author Organization [facility] Address [address] [place], [place] [address] Phone Care Team Providers Care Dyed Yarn Operator Name Role Phone Derrek Hollingsworth MD Primary Care Provider [phone] Allergies Active Allergy Reactions Criticality Noted Date [...] Not on file [place] [employer] [place] [facility] [place] [facility] [place] Care Teams Dyed Yarn Operator Relationship Specialty Start Date End Date Derrek Hollingsworth MD [address] [place] [address] [place] [address] PCP - General Internal Medicine 09/11/21 Additional Source Comments The information contained in this document represents components of the legal health record. It is not the complete legal health record.[facility]
== END 2025-03-25 15:27 | disposition home or self-care (01) ==
LOC: HO.HSMS 13:58
PROVIDERS: Visit Provider Physician Assistant Medical
DX: G47.33 Obstructive sleep apnea (adult) (pediatric) (principal); R06.83 Snoring; E53.8 Deficiency of other specified B group vitamins; E55.9 Vitamin D deficiency, unspecified; R51.9 Headache, unspecified; R20.2 Paresthesia of skin; G47.19 Other hypersomnia
CPT/HCPCS: 99204

== ENCOUNTER → 2025-03-25 13:58 | Outpatient (BNVA) | payer OTHER, SELFPAY | PROVIDERS: Visit Provider Physician Assistant Medical | DX: G47.33 Obstructive sleep apnea (adult) (pediatric) (principal); R06.83 Snoring; E53.8 Deficiency of other specified B group vitamins; E55.9 Vitamin D deficiency, unspecified; R51.9 Headache, unspecified; R20.2 Paresthesia of skin; G47.19 Other hypersomnia | CPT/HCPCS: 99202 ==

== ENCOUNTER 2025-03-26 08:40 | Outpatient (AMB) | payer OTHER, SELFPAY ==
--- NOTE | 2025-03-26 08:41 | A.OFFPC_ITS ---
Vital Signs 03/26/25 08:46 Height 5 ft 2 in Weight 190 lb BMI 34.7 BP 178/86 H Blood Pressure Location Lt brachial Position Sitting Respiration 18 Pulse 96 Pulse Source Pulse Oximeter Temp Source Temporal Artery Scan Pulse Oximetry (%) 98 Oxygen Delivery Method Room Air Intake Visit Reasons: [facility] 03/24 Wool Hat Flanger Required: No Accompanied by: Self / Same As Patient Allergies Iodinated Contrast Media Allergy (Intermediate, Verified 03/26/25 08:54) Anaphylaxis latex Adverse Reaction (Verified 03/26/25 08:54) Hives Medication List - Last Reconciled 03/26/25 by NADEGE Resendez acetone (urine) test (Ketone Urine Test strips) As directed prn over 250, nausea, vomiting, illness tid albuterol sulfate 90 mcg/actuation 2 inhalations inhalation Q4-6H PRN albuterol sulfate 0.63 mg (3 mL) inhalation Q4-6H PRN [alcohol swabs As directed] amlodipine 10 mg PO BEDTIME 90 days aspirin 81 mg PO DAILY 90 days atorvastatin 80 mg PO DAILY 90 days blood-glucose meter (FreeStyle [place] kit) As directed blood-glucose meter (FreeStyle Lite Meter kit) As directed blood-glucose sensor ([employer] G7 Sensor device) As directed every ten days cefuroxime axetil 500 mg PO BID 7 days cholecalciferol (vitamin D3) 50 mcg PO DAILY clotrimazole-betamethasone 1-0.05 % 1 appl topical BID cyclobenzaprine 10 mg PO TID PRN diclofenac sodium 1% 2 grams topical QID fluticasone propion-salmeterol 115-21 mcg/actuation 2 puffs inhalation BID gabapentin 100 mg PO BEDTIME insulin degludec (Tresiba FlexTouch U-200 insulin) 60 units (0.3 mL) subcut DAILY 30 days insulin lispro (Humalog KwikPen (U-100) Insulin) 16 units (0.16 mL) subcut TID 30 days iron,carbonyl-vitamin C 65 mg iron- 125 mg (Vitron-C) 1 tab PO DAILY lancets (FreeStyle Lancets) 4 times a day prn sensor failure or to confirm glucose levofloxacin 500 mg PO DAILY lisinopril 40 mg (2 x 20 mg) PO DAILY 90 days metformin 1,000 mg PO BID nebulizers to use every 4 hours as needed for wheezing omeprazole 40 mg PO DAILY ondansetron 4 mg PO Q8H PRN pen needle, diabetic (Comfort EZ Pen [place]) As directed injects 4X/day phenazopyridine (Pyridium) 200 mg PO TID PRN 6 doses semaglutide (Ozempic) 0.5 mg (0.736 mL) subcut QWEEK 28 days spironolactone 50 mg PO DAILY topiramate XR 25 mg PO DAILY 3 months Tobacco use date assessed: 03/26/25 Dental Screening Dental Screen Date: 03/26/25 Did you have a dental visit in the last 12 months?: Yes Did you have a dental problem in the last 6 months where you did not have access to dental care?: No Was dental information given to patient?: Patient has dentist [facility] 03/24 HPI Details The patient is a 44-year-old female presenting for post hospital follow up Doxazosin 2 mg at bedtime ordered Gabapentin increased to t.i.d. due to nerve pain Encouraged to make appointment with Endocrine and Cardiology. Follow up in 1 month The patient is a 16 units lispro wants to go home make sure she eats something HPI Comments History of Present Illness Details Notes: Patient was recently evaluated in the emergency room on the for shortness of breath, numbness and tingling in extremities and feeling unwell. EKG, labs, imaging, respiratory panel and chest x-ray were completed. The patient left the emergency room before workup was completed. The patient random glucose was 412 mg/dL, troponin 57.4, pro BNP 676.5, negative for respiratory viruses. The patient was evaluated by neuro /sleep medicine on 03/25/2025 for KALLIE, who recommended for the patient to go back to the emergency room to be treated for possibly DKA with the patient declined. Chest x-ray showed mild cardiac enlargement and no active pulmonary disease. Today the patient is presenting for management of multiple chronic conditions. Her recent HbA1c was 10.6%. She was previously started on 60 units of once-daily insulin and lispro 16 units three times a day, which was increased from 14 units after a recent emergency room visit. She reports being without her once-weekly GLP-1 agonist, Ozempic, for two weeks due to a stock issue at the pharmacy. She has also been without her CGM sensor, which she uses for blood glucose monitoring, due to the pharmacy being out of stock. She reports significant, widespread pain in her legs and hands, describing it as feeling like an 79-year-old woman. 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 She takes gabapentin at night for this pain. Her blood pressure remains uncontrolled, with recent readings of 160 and previou s readings in the 200s, although it is trending down. She has a family history of heart problems from her mother. She missed her most recent cardiology follow- up. A philanthropy officer she saw a few months ago prescribed a diuretic and mentioned she might need a stent if her heart condition worsens. The patient also reports issues with medication refills, stating she has not received her muscle relaxers for months, though records indicate active refills are available. She has an aversion to needles, which makes adherence to her insulin regimen difficult. She recently saw a sleep medicine specialist and is awaiting a call for an in- house titration study for sleep apnea. It has been a while since her last follow-up with endocrinology. Health Maintenance - Follow-up with endocrinology for diabe emely management is pending. - Follow-up with cardiology for hyperten keisha and cardiac risk is pending. - A sleep study titration is pending for management of sleep apnea. - Recent testing for flu and COVID-19 wa s negative. Social History - The patient sometimes stays with her s ister. 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 - She reports a significant aversion to needles, which affects her ability to self-administer insulin. - The patient expresses feeling overwhel med and finds it difficult to care for herself while caring for family. Results - Labs: HbA1c 10.6%. - Tests and Diagnostics: In-office finge rstick glucose 292 mg/dL. - Recent tests for flu and COVID-19 were negative. [facility] Medical History Hypertensive emergency Diabetes mellitus with diabetic nephropathy Hypertension Acute non-ST elevation myocardial infarction (NSTEMI) UTI (urinary tract infection) Anemia Bilateral hand numbness Bilateral hand pain HSV (herpes simplex virus) infection Smoking TIA (transient ischemic attack) DJD (degenerative joint disease) GERD (gastroesophageal reflux disease) Asthma Obesity Diabetes mellitus HTN (hypertension) Surgical History H/O cardiac catheterization Hx of tubal ligation Hx of cholecystectomy Hx of appendectomy Hx of section Family History Mother Heart disease Diabetes Hypertension Hyperlipidemia Fibromyalgia Father No problems noted. Brother No problems noted. Brother No problems noted. Brother No problems noted. Sister Deep vein thrombosis Son No problems noted. Son No problems noted. Daughter Hypertension Daughter No problems noted. Maternal Aunt History of breast cancer Social History Household Members: Family Housing: Apartment Do you presently have visiting nurse or other home services: No Alcohol intake: current Alcohol intake frequency: holidays/special occasions only Patient Tobacco Use Status: Never used Tobacco Tobacco use type: Cigarette Cigarettes Per Day: 3 e-Cigarette/Vaping Use: Never Used Second Hand Smoke Exposure: No service: No Current occupational status: employed Cognitive needs: No Hearing needs: No Vision needs: Yes (glasses) Female Reproductive History Menstrual Age of Menarche: 12 Questionnaire Thrive Questionnaire Date Thrive assessed: 03/26/25 I am a: Patient What is your living situation today?: I have a place to live, but I am worried about losing it in the future Within the past 12 months, did the food you bought not last and you didn't have the money to get more?: I choose not to answer this question Within the past 12 months, did you worry whether your food would run out before you got money to buy more?: I choose not to answer this question Do you have trouble paying for medicines?: Yes Do you have trouble getting transportation to medical appointments?: I choose not to answer this question Do you have trouble paying your heating and electricity bill?: No Do you have trouble taking care of your child, family member or friend?: No Do you have trouble with day-to-day activities such as bathing, preparing meals, shopping, managing finances, etc.?: No Are you currently unemployed and looking for a job?: No Are you interested in more education?: No Currently or been in a relationship where the following occur: No concerns reported THRIVE Score: 1 VIKRAM-7 AMB Questionnaire VIKRAM-7 Date VIKRAM - 7 assessed: 08/30/24 Source: Developed by Drs. Willian Nassar, Monique Clark, Aaron Ortega and colleagues, with an educational walter from [employer]. Review of Systems Narrative Review of Systems - General: Reports feeling unwell and tired. - Cardiovascular: Denies chest pain. - Respiratory: Denies shortness of breath. - Musculoskeletal: Reports diffuse pain in her legs, hands, and joints. 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 - Psychiatric: Reports difficulty sleeping due to pain. Const Reports daytime sleepiness, Reports fatigue and Denies headache(s) Eyes Denies loss of vision ENT Denies vertigo, Denies dizziness, Denies headache(s) and Denies sore throat Card Reports chest pain (Recurrent, chest tightness with activity), Denies leg edema, Denies lightheadedness and Reports dyspnea on exertion Resp Denies cough, Denies hemoptysis, Reports dyspnea on exertion and Denies wheezing GI Denies abdominal pain, Denies melena, Denies constipation, Reports heartburn, Denies diarrhea and Denies vomiting Denies urinary frequency, Denies dysuria and Denies urinary urgency Musc Reports back pain, Reports arthralgias (Hips), Denies joint swelling, Reports numbness (Upper and lower extremities), Reports radiating pain into limb (Bilateral hips and calves) and Reports tingling (Upper and lower extremities) Neuro Denies Abnormal speech present, Denies behavioral changes, Denies vertigo, Denies dizziness, Denies headache(s), Denies loss of vision, Denies memory loss, Reports numbness (Upper and lower extremities) and Reports tingling (Upper and lower extremities) Psych Denies anxiety, Denies behavioral changes, Denies depression, Denies memory loss and Denies panic attacks Endo Reports fatigue Martin/Lymph Denies easy bleeding and Denies easy bruising Aller/Immun Denies wheezing Physical exam (Primary Care) Vital Signs: Last Vital Signs Pulse 96 03/26/25 08:46 Resp 18 03/26/25 08:46 BP 178/86 H 03/26/25 08:46 Pulse Ox 98 03/26/25 08:46 Oxygen Delivery Method Room Air 12/31/25 08:46 BMI result Body Mass Index 34.7 Tobacco/Smoking Status: Tobacco use Status Tobacco use date assessed 03/26/25 03/26/25 08:55 Patient Tobacco Use Status Never used Tobacco 03/26/25 08:43 Tobacco use type Cigarette 03/26/25 08:43 e-Cigarette/Vaping Use Never Used 03/26/25 08:43 Thrive Assessment: Date of Thrive Assessment Date Thrive assessed 03/26/25 03/26/25 08:55 Currently or been in a relationship where the following occur: No concerns reported Narrative Physical Exam - Vitals: In-office fingerstick blood glucose 292 mg/dL. - Respiratory: Wheezing heard on auscultation. Const General: healthy appearing, no acute distress, alert and awake Nutritional Appearance: well nourished Orientation/consciousness: oriented to person, oriented to place and oriented to time HENMT Ears: hearing grossly normal bilaterally General nose exam: Normal external nose present Eyes Conjunctivae: conjunctivae normal Sclerae: sclerae normal Pupils: Equal, round and reactive pupils present Neck Neck: Yes no lymphadenopathy and Yes no JVD Thyroid: Thyroid normal Carotids: no bruits Resp Effort & Inspection: normal respiratory effort and not tachypneic Auscultation: no crackles, no rales, no rhonchi and no wheezes Cardio Rate: regular rate Rhythm: regular rhythm Heart sounds: S1 normal heart sound present, S2 normal heart sound present, no murmurs and normal S1 and S2 GI Palpation (GI): Soft to palpation, nontender, no hepatomegaly and no splenomegaly Auscultation: normal bowel sounds General: Yes no CVA tenderness Back/Spine/Pelvis Back: no CVA tenderness Skin General skin exam: no rashes or lesions noted and dry skin Neuro General: oriented to person, oriented to place and oriented to time Cranial nerves: Yes CN's II-XII intact bilaterally, Yes Equal, round and reactive pupils present, Yes Nystagmus not present and Yes Ability to bilaterally elevate shoulders present Speech: No Abnormal speech present Gait exam (Neuro): Normal gait present Motor exam (neuro): 5/5 motor strength present throughout and no tremor noted Extrem Right upper extremity: full ROM Left upper extremity: full ROM Right lower extremity: full ROM; no edema Left lower extremity: full ROM; no edema Psych Mental Status: mental status grossly normal Speech and movement: Normal speech and movement present Affect: normal affect Attitude: cooperative Thought process: Normal thought process present Coding Level of Care Code Est Pt Level 4 (92665) Diagnoses Uncontrolled type 2 diabetes mellitus with hyperglycemia E11.65 Morbid obesity E66.01 Diabetic polyneuropathy associated with type 2 diabetes mellitus E11.42 Diabetes mellitus type: type 2 Diabetes mellitus complication detail: diabetic polyneuropathy Anemia, unspecified type D64.9 Anemia type: unspecified type Time Spent (min) 45 Assessment & Plan Assessment & Plan (1) Uncontrolled type 2 diabetes mellitus with hyperglycemia: Code(s): E11.65 - Type 2 diabetes mellitus with hyperglycemia Category: Medical (2) Morbid obesity: Code(s): E66.01 - Morbid (severe) obesity due to excess calories Category: Medical (3) Diabetic neuropathy: Code(s): E11.40 - Type 2 diabetes mellitus with diabetic neuropathy, unspecified Category: Medical Qualifiers: Diabetes mellitus type: type 2 Diabetes mellitus complication detail: diabetic polyneuropathy Qualified Code(s): E11.42 - Type 2 diabetes mellitus with diabetic polyneuropathy (4) Anemia: Code(s): D64.9 - Anemia, unspecified Category: Medical Qualifiers: Anemia type: unspecified type Qualified Code(s): D64.9 - Anemia, unspecified Plan Plan Patient was informed and verbally consented to the use of an ambient scribe for clinic note documentation during this visit. 1. Type 2 Diabetes Mellitus With Hyperglycemia The patient's HbA1c is 10.6% and in-office glucose is 292 mg/dL, indicating poorly controlled diabetes. She has been without her Ozempic and Dexcom sensor for two weeks due to stock issues. A Chiquita 3 sensor was applied in-office to resume continuous glucose monitoring. The importance of checking blood sugar was stressed, especially before taking fast-acting insulin, and a sample glucometer kit was provided. The patient was instructed to continue her 60 units of long- acting insulin and to take her fast-acting lispro insulin (16 units) only when she is eating to avoid hypoglycemia. She will be assisted in scheduling a follow-up with an life trainer as soon as possible for medication management. The patient inquired about home health services for insulin administration due to her needle phobia, and it was agreed to support this request with her insurance. 2. 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 To manage the pain, her gabapentin will be increased from once daily at night to three times a day. It was explained that controlling her blood sugar is crucial for improving these neurological symptoms. 3. Essential Hypertension The patient's blood pressure remains uncontrolled despite some recent improvement. A new medication, doxazosin, will be added to her regimen to be taken at a small dose at night. This specific medication was chosen because it does not affect her asthma. The patient was instructed to schedule a follow-up with her philanthropy officer. 4. Asthma Wheezing was noted on physical exam, consistent with her history of asthma. The choice of doxazosin for hypertension was made specifically to avoid exacerbating her asthma. Encouraged to use her inhalers. 5. Follow-Up The patient will follow-up in one month to reassess her blood pressure, blood glucose control, and pain management. She was encouraged to use the patient portal for communication and scheduling if she encounters difficulties. She will be assisted with making appointments for endocrinology and was advised to also schedule with cardiology and her sleep specialist. Discussion Notes I discussed with the patient her significantly elevated HbA1c of 10.6% and the current fingerstick glucose of 292 mg/dL. I explained that her severe nerve pain is a direct consequence of uncontrolled diabetes and that better glucose control is essential for symptom relief. We reviewed the importance of regular blood glucose monitoring, especially since she uses fast-acting insulin, and the risks of taking it without eating. A Chiquita 3 sensor was applied in-office, and she was provided a sample glucometer kit for backup monitoring. We discussed increasing her gabapentin to three times a day to better manage her neuropathic pain. I strongly advised her to schedule follow-up appointments with both endocrinology and cardiology. We discussed her aversion to needles and her request for home health services for insulin injections, and I agreed to support this with her insurance. A follow-up visit is scheduled in one month, and I instructed her to use the patient portal if she has trouble making the appointment. For her uncontrolled hypertension, I explained the plan to add a new nighttime medication, doxazosin, and noted that I chose this specific drug to avoid any negative impact on her asthma, as she had wheezing on exam. Patient Instructions - Take your gabapentin three times a day (morning, afternoon, and night) to help with your nerve pain. - Start taking the new blood pressure medication (doxazosin) tonight before bed. - Make sure to brick picker this new prescription from the pharmacy. - A new glucose sensor was placed on your arm. It will start giving readings in about an hour. If you feel dizzy or the sensor gives a strange number, double- check your blood sugar with the fingerstick monitor provided. - It is very important to always eat food when you take your fast-acting insulin (Lispro). Do not take it if you are not going to eat, as it can make your blood sugar drop too low. - Please call to make follow-up appointments with your endocrine (diabetes) doctor and your cardiology (heart) doctor as soon as possible. - You should also follow up on scheduling your sleep study. - We have scheduled a follow-up appointment for you here in one month. If you have any trouble getting an appointment, please send a message through the patient portal. - You can look for home health services that can help with your insulin shots. We will approve any requests that come from your insurance. Orders: Orders AMB Hemoglobin A1c Today E11.65 - Type 2 diabetes mellitus with hyperglycemia, E11.8 - Type 2 diabetes mellitus with unspecified complications Medications: New doxazosin (Cardura) 2 mg PO BEDTIME 30 tabs 3RF Changed From gabapentin 100 mg PO BEDTIME 30 caps 2RF To gabapentin 100 mg PO TID 270 caps 2RF 90 days Refilled cyclobenzaprine 10 mg PO TID PRN 90 tabs 3RF muscle spasm lancets (FreeStyle Lancets) 4 times a day prn sensor failure or to confirm glucose 150 ea 1RF [alcohol swabs] As directed 200 ea 3RF E11.8 - Type 2 diabetes mellitus with unspecified complications Patient Instructions: The patient was given time off from work until Monday to work on glucose and blood pressure management. Follow up in office in 1 month or sooner for any concerns.
--- OUTSIDE RECORDS SUMMARY | 2025-03-26 08:43 | XMS_ITS | Clinical Summary ---
Author Organization Formerly [facility] Address [address] [place], [place] [id number] Phone Care Team Providers Care Costing Analyst Name Role Phone Derrek Hollingsworth MD Primary Care Provider [phone] Allergies Active Allergy Reactions Criticality Noted Date [...] Not on file [place] [facility] [facility] [place] [facility] Care Teams Costing Analyst Relationship Specialty Start Date End Date Derrek Hollingsworth MD [address] [place] [address] [place] [address] PCP - General Internal Medicine 09/11/21 Additional Source Comments The information contained in this document represents components of the legal health record. It is not the complete legal health record.[facility]
[2025-03-26 08:46] VITALS: BP 178/86; PULSE 96; RESP 18; O2SAT 98; BMI 34.7
== END 2025-03-26 09:42 | disposition home or self-care (01) ==
LOC: HO.HMCH 08:41
DX: E11.65 Type 2 diabetes mellitus with hyperglycemia (principal); E66.01 Morbid (severe) obesity due to excess calories; E11.42 Type 2 diabetes mellitus with diabetic polyneuropathy; D64.9 Anemia, unspecified

== ENCOUNTER → 2025-03-26 08:40 | Outpatient (BNVA) | payer OTHER, SELFPAY | DX: E11.65 Type 2 diabetes mellitus with hyperglycemia (principal); E11.42 Type 2 diabetes mellitus with diabetic polyneuropathy; E11.8 Type 2 diabetes mellitus with unspecified complications; I10 Essential (primary) hypertension; J45.909 Unspecified asthma, uncomplicated; E66.01 Morbid (severe) obesity due to excess calories; D64.9 Anemia, unspecified; Z86.73 Personal history of transient ischemic attack (TIA), and cerebral infarction without residual deficits; Z79.4 Long term (current) use of insulin | CPT/HCPCS: 99212 ==